=== PATIENT | male | born 1970 | race Caucasian/White ===

== ENCOUNTER 2023-03-14 15:29 | Outpatient (OUT) | payer MEDICARE, MEDICAID, SELFPAY ==
[2023-03-14 16:28] LABS: C Reactive Protein 1.8 mg/dL (<=1.0); Thyroid Stimulating Hormone 0.922 uIU/mL (0.358-3.740)
[2023-03-14 16:31] LABS: Erythrocyte Sedimentation Rate 44 mm/hr (<=20)
[2023-03-15 15:11] LABS: Deamidated Gliadin Abs, IgA 5 units (0-19); Deamidated Gliadin Abs, IgG 4 units (0-19); Endomysial Antibody IgA Negative (Negative); Immunoglobulin A, Qn, Serum 214 mg/dL (90-386); t-Transglutaminase (tTG) IgA 4 U/mL (0-3); t-Transglutaminase (tTG) IgG <2 U/mL (0-5)
== END 2023-03-14 15:30 ==
LOC: LAB 15:35
PROVIDERS: PCP Nurse Practitioner; Visit Provider Nurse Practitioner
DX: R19.7 Diarrhea, unspecified (principal); K86.89 Other specified diseases of pancreas; R63.4 Abnormal weight loss
CPT/HCPCS: 36415; 82784; 84443; 85652; 86140; 86231; 86258; 86364

== ENCOUNTER 2023-03-20 12:15 | Outpatient (OUT) | payer MEDICARE, MEDICAID, SELFPAY ==
--- NOTE | 2023-03-20 12:22 | CT_ITS ---
The [address] [address] Patient Name: KALANI UGARTE MRN: [id number] date: 1970 Sex: M Assigned Patient Location: CT Current Patient Location: CT Accession/Order Number: [id number] Exam Date: 03/20/2023 13:40 Report Date: 03/20/2023 14:21 At the request of: NON-STAFF PHYSICIAN Procedure: CT abdomen pelvis w con EXAM: CT abdomen pelvis w con HISTORY: Pancreatic insufficiency K86.89, Diarrhea R19.7, R63.4 COMPARISON: CT abdomen and pelvis 09/09/2022. TECHNIQUE: Following intravenous injection of 100 mL of Omnipaque 300, axial soft tissue windows of the abdomen and pelvis were performed with coronal and sagittal reformats. Findings: Small right pleural effusion with mild adjacent atelectasis. ABDOMEN: There are couple hepatic low-attenuation lesions, too small to characterize, near the dome. The gallbladder, spleen, pancreas, and adrenal glands are unremarkable. No renal stones or collecting system dilatation. Left renal low-attenuation lesions, too small to characterize. The visualized portions of the bilateral ureters are nondilated. The bowel is unremarkable without evidence of wall thickening or obstruction. The appendix is nondilated. The aorta is normal caliber. No enlarged abdominal lymph nodes or free abdominal fluid. Pelvis: Unremarkable bladder. The prostate is nonenlarged. No enlarged pelvic lymph nodes or free pelvic fluid. No aggressive sclerotic or lytic osseous lesions. IMPRESSION: 1. Small right pleural effusion with mild adjacent atelectasis. 2. No acute abdominal or pelvic abnormality. Electronically authenticated by: MOLLY ROSALES Date: 03/20/2023 14:21
== END 2023-03-20 12:16 ==
LOC: CT 12:16
PROVIDERS: PCP Nurse Practitioner
DX: R19.7 Diarrhea, unspecified (principal); K86.89 Other specified diseases of pancreas; R63.4 Abnormal weight loss; J90 Pleural effusion, not elsewhere classified; J98.11 Atelectasis
CPT/HCPCS: 74177; Q9967

== ENCOUNTER 2023-04-17 15:32 | Outpatient (OUT) | payer MEDICARE, MEDICAID, SELFPAY ==
[2023-04-18 21:07] LABS: Calprotectin, Fecal 9 ug/g (0-120)
== END 2023-04-17 15:33 | disposition home or self-care (01) ==
LOC: LAB 15:34
PROVIDERS: PCP Nurse Practitioner
DX: R19.7 Diarrhea, unspecified (principal); K86.89 Other specified diseases of pancreas; R63.4 Abnormal weight loss
CPT/HCPCS: 83993

== ENCOUNTER 2023-05-02 12:50 | Outpatient (OUT) | payer MEDICARE, MEDICAID, SELFPAY ==
--- NOTE | 2023-05-02 13:01 | PM.CN ---
Consult Note: HPI Data of Consult Patient: known to practice within the last 3 years Consult date: 05/02/23 Requesting Physician: ENZO LOUIS NP Primary Care Provider: Carmen Pratt Consult Narrative Narrative: Patient was here for f/u of low back pain. Pain is 4/10 today worse with lifting . He had SI joint injection 11/05 with significant relief. Pain is lumbar area and also left SI joint area, worse with lifting, position change. RFA bilt lumbar area 10/2021 without relief of pain. Denies adverse SE of medications. Medication regimen assists patient with being better able to perform ADLS. No new sensorimotor or bowel or bladder issues. We discussed doing SI joint injection and he is agreeable. Mother in room during visit also. He is wearing back brace also. He has failed conservative management with OTC meds, rx meds, RFA, etc. cc:: CC: ENZO LOUIS NP Review of Systems ROS Status of ROS 10 or more systems reviewed and unremarkable except as noted in history and below Musculoskeletal Reports: back pain Exam Constitutional Documenting provider has reviewed patient's vital signs: yes Common normals: no apparent distress, oriented x3, no limitations, alert and well nourished General appearance: cooperative, comfortable and well developed Orientation/consciousness: Yes awake, Yes oriented to person, Yes oriented to place and Yes oriented to time HENCA Common normals: normocephalic and moist oral mucous membranes Respiratory Common normals: normal respiratory effort, no retractions and no use of accessory muscles Effort & inspection: able to speak in complete sentences and symmetric chest movement Back & Pelvis Lumbar spine/lower back: normal to inspection, pain with ROM, paraspinal muscle tenderness, paraspinal muscle spasm and straight leg raise negative bilaterally Other: positive facet loading positive yeni, positive gaenslens, positive thigh thrust left muscle strength 5/5 bilat with intact sensation Assessment and Plan Assessment and Plan (1) Lumbar spondylosis: (2) Muscle spasm: (3) Sacroiliac joint pain: Plan schedule left SI joint injection under fluoroscopy jacqui vásquezill
== END 2023-05-02 12:51 | disposition home or self-care (01) ==
LOC: PM 12:50
PROVIDERS: PCP Nurse Practitioner; Visit Provider Nurse Practitioner
DX: M47.816 Spondylosis without myelopathy or radiculopathy, lumbar region (principal); M62.838 Other muscle spasm; M53.3 Sacrococcygeal disorders, not elsewhere classified
CPT/HCPCS: G0463

== ENCOUNTER 2023-05-28 10:35 | Day surgery (SDC) | payer MEDICARE, MEDICAID, SELFPAY ==
[2023-05-28 11:09] VITALS: BP 112/83; PULSE 68; RESP 16; TEMP 36.7; O2SAT 98
[2023-05-28 11:55] VITALS: RESP 20
[2023-05-28] MEDS: BUPIVACAINE HCL 0.25% PF 25 MG/10 ML VIAL 4 ML INJ (12:01)
[2023-05-28 12:02] VITALS: BP 113/68; BP 116/70; PULSE 64; PULSE 68; O2SAT 100; O2SAT 96
--- NOTE | 2023-05-28 16:15 | W.PM.PROCNOT ---
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 25 gauge spinal needle Insert over each of the target areas identified in fluoroscopy corresponding needles were advanced Under fluoroscopic guidance until the target/targets encountered , no indication of intravascular or Intraneuronal needle tip placement. Solution injected .needles removed post procedurally. patient transferred to recovery room in stable condition to be discharged home after meeting criteria Anesthesia: Local Surgeon: Esteban Sanchez Condition: stable
== END 2023-05-28 12:06 | disposition home or self-care (01) ==
LOC: SURGOUT 10:35
PROVIDERS: PCP Nurse Practitioner; Visit Provider Anesthesiology Pain Medicine
DX: G57.82 Other specified mononeuropathies of left lower limb (principal)
CPT/HCPCS: 64450; 77002

== ENCOUNTER 2023-06-13 08:39 | Outpatient (RCR) | payer MEDICARE, MEDICAID, SELFPAY | END 2023-07-06 13:17 | disposition home or self-care (01) | LOC: PT 08:39 | PROVIDERS: PCP Nurse Practitioner | DX: M25.552 Pain in left hip (principal); Z91.81 History of falling; M54.50 Low back pain, unspecified | CPT/HCPCS: 97110; 97112; 97161 ==

== ENCOUNTER 2023-06-13 12:25 | Outpatient (OUT) | payer MEDICARE, MEDICAID, SELFPAY ==
--- NOTE | 2023-06-13 12:28 | P.CN_ITS ---
Consult Note: HPI Data of Consult Patient: known to practice within the last 3 years Requesting Physician: Renetta Blood NP Primary Care Provider: Carmen Pratt Consult Narrative Reason for consult: Left Lateral cutaneous branch Iliohypogastric nerve injection f/u Narrative: Nabeel Asencio a pleasant 53 year old male left presents to office for evaluation of chronic The patient had significant relief of over 80%, with increased range of motion, decreased pain with provocative maneuvers, and increased ability to perform ADLs after diagnostic left LCIH injection. Patient rating pain 1-2/10. Would like to discuss follow up cc:: CC: Renetta Blood NP Review of Systems ROS Status of ROS 10 or more systems reviewed and unremarkable except as noted in history and below Musculoskeletal Reports: back pain and joint pain [facility] Medical History (Updated 05/16/23 @ 10:55 by Taniya Vigil RN) Meds Home Medications and Allergies Home Medications Medication Instructions Recorded Confirmed Type albuterol 90 mcg/actuation aerosol 90 mcg inhalation .q6 PRN wheezing 05/16/23 05/28/23 History inhaler budesonide-formoterol HFA 160 2 puff inhalation DAILY 05/16/23 05/28/23 History mcg-4.5 mcg/actuation aerosol inhaler (Symbicort) diclofenac sodium 75 mg 75 mg PO BID 05/16/23 05/28/23 History tablet,delayed release levetiracetam 500 mg tablet 500 mg PO DAILY 05/16/23 05/28/23 History methocarbamol 500 mg tablet 500 mg PO BID 05/16/23 05/28/23 History mirtazapine 15 mg tablet (Remeron) 15 mg PO DAILY 05/16/23 05/28/23 History primidone 50 mg tablet 50 mg PO DAILY 05/16/23 05/28/23 History zonisamide 100 mg capsule 200 mg PO BEDTIME 05/16/23 05/28/23 History Allergies Allergy/AdvReac Type Severity Reaction Status Date / Time latex Allergy Verified 05/28/23 11:06 Exam Constitutional Documenting provider has reviewed patient's vital signs: yes Common normals: no apparent distress, oriented x3, healthy appearing, alert and well nourished General appearance: cooperative HENMT Common normals: normocephalic, hearing grossly normal bilaterally and moist oral mucous membranes Head and scalp: normocephalic Eye Common normals: PERRL Pupil: PERRL Neck & C-Spine Common normals: full ROM General: normal visual inspection Chest Common normals: inspection of chest normal Respiratory Common normals: normal respiratory effort, no retractions and no use of accessory muscles Back & Pelvis Lumbar spine/lower back: lumbar ROM normal and pain with ROM Sacroiliac joints: SI joint(s) abnormal (left positive yeni, thigh thrust, gaenslen. tender to PSIS) Extremity Common normals: normal to inspection and full ROM Neuro Common normals: oriented x3, CN's II-XII intact bilaterally, moves all extremities, no focal motor deficits, no sensory deficits noted and deep tendon reflexes 2+ bilaterally Sensorium/orientation: alert Gait (neuro): antalgic Motor exam: strength 5/5 throughout and no movement abnormalities noted Psych Common normals: mental status grossly normal, thought process normal, cooperative, affect normal, speech normal and activity/motor behavior normal Speech: normal speech Thought process: normal thought process Results Additional Findings Additional findings: A drug screen was completed and reviewed within the last year, and if there has not been a drug screen completed we ordered one today to monitor higher risk, state monitored pain medication use. As part of providing excellent, safe, comprehensive care, the following was completed at our patient's visit: 1. A medication reconciliation and review to ensure accurate knowledge of current/active medications, including asking our patients to inform us about any elpm-vua-mbqdnzz medications or herbal remedies/nutritional supplements/alternative remedies. 2. A review to specifically ensure our patients have had annual screening for: elevated body mass index (BMI), tobacco use, screening for depression, and screening for unhealthy alcohol use. When screening is concerning, patients are provided with education and the specific recommendation to discuss the concerning health issue and treatment options with their primary care provider. Assessment and Plan Assessment and Plan (1) Lumbar spondylosis: (2) Muscle spasm: (3) Sacroiliac joint pain: Assessment and Plan: The patient has had over 3 months of moderate to severe left sacroiliac pain with functional impairment and inadequate response to conservative care including NSAIDS (unless there are contraindication such as concurrent blood thinners), multiple oral or topical pain medications, and home exercise program/physical therapy.? Patient has completed >6 weeks of guided home exercise program and/or formal physical therapy program without relief of their symptoms.? I have reviewed the imaging of the lumbar spine and no red flags were identified.? We discussed the risks and benefits of the procedure with the patient Plan proceed with left LCIH RFA thermal with IV sedation under fluoroscopy continue current medication regimen f/u after procedure
== END 2023-06-13 12:26 | disposition home or self-care (01) ==
LOC: PM 12:25
PROVIDERS: PCP Nurse Practitioner; Visit Provider Nurse Practitioner
DX: M47.816 Spondylosis without myelopathy or radiculopathy, lumbar region (principal); M62.838 Other muscle spasm; M53.3 Sacrococcygeal disorders, not elsewhere classified
CPT/HCPCS: G0463

== ENCOUNTER 2023-06-20 13:18 | Outpatient (OUT) | payer MEDICARE, MEDICAID, SELFPAY ==
--- NOTE | 2023-06-20 13:27 | MR_ITS ---
[address] [address] Patient Name: KALANI UGARTE MRN: [id number] date: 1970 Sex: M Assigned Patient Location: MRI Current Patient Location: Accession/Order Number: [id number] Exam Date: 06/20/2023 13:40 Report Date: 06/21/2023 08:44 At the request of: NON-STAFF PHYSICIAN Procedure: MR cervical spine wo con EXAMINATION: MR cervical spine wo con HISTORY: Degenerative Disc Disease M50.30 COMPARISON: No relevant comparison available. TECHNIQUE: A variety of imaging planes and parameters were utilized for visualization of suspected pathology without and/or with intravenous Dotarem contrast based on examination type. FINDINGS: CRANIOCERVICAL AREA: Normal foramen magnum with no Chiari malformation. PARASPINAL AREA: Normal with no visible mass. BONES: No fracture, pars defect, or osseous lesion. CORD: Normal caliber, contour, and signal intensity. CERVICAL DISC LEVELS: C2-C3: Early degenerative disc disease is present without focal protrusion or neural impingement. C3-C4: Early degenerative disc disease is present without focal protrusion or neural impingement. C4-C5: Moderate central canal and marked bilateral foramen narrowing. Mild diffuse disc bulging, uncovertebral joint spurring, and moderate disc height reduction. Mild degenerative facet arthropathy. C5-C6: Moderate marked central canal and bilateral foramen narrowing. Mild diffuse disc bulging, uncovertebral joint spurring, and moderate disc height reduction. Moderate degenerative facet arthropathy. C6-C7: Moderate-marked central canal narrowing and moderate bilateral foramen narrowing. Mild diffuse disc bulging, uncovertebral joint spurring, and mild disc at reduction. Mild degenerative facet arthropathy. C7-T1:. No significant disc/facet abnormality, spinal stenosis, or foraminal stenosis. MR/MR cervical spine wo con IMPRESSION: 1. C4-5 through C6-7 moderate or greater central canal and foramen narrowing secondary to degenerative disc disease and facet arthropathy. Electronically authenticated by: NOEMÍ MORRISON Date: 06/21/2023 08:44
== END 2023-06-20 13:19 | disposition home or self-care (01) ==
PROVIDERS: PCP Nurse Practitioner
DX: M50.30 Other cervical disc degeneration, unspecified cervical region (principal); R29.2 Abnormal reflex; M50.321 Other cervical disc degeneration at C4-C5 level; M48.02 Spinal stenosis, cervical region
CPT/HCPCS: 72141

== ENCOUNTER 2023-07-08 14:07 | Outpatient (OUT) | payer MEDICARE, MEDICAID, SELFPAY ==
[2023-07-08 15:11] LABS: Prostate Specific Antigen Scrn 0.85 ng/mL (<=4.00)
== END 2023-07-08 14:08 | disposition home or self-care (01) ==
LOC: LAB 14:09
PROVIDERS: PCP Nurse Practitioner; Visit Provider Nurse Practitioner
DX: Z12.5 Encounter for screening for malignant neoplasm of prostate (principal)
CPT/HCPCS: 36415; G0103

== ENCOUNTER 2023-07-22 10:13 | Outpatient (OUT) | payer MEDICARE, MEDICAID, SELFPAY ==
[2023-07-22 11:03] LABS: Basophils Percent Auto 0.3 % (0.2-2.0); Eosinophils Absolute Auto 0.9 10^3/uL (0.0-0.7); Eosinophils Percent Auto 11.4 % (0.9-7.0); Hematocrit 45.9 % (42.0-54.0); Hemoglobin 14.8 g/dL (14.0-18.0); Immature Granulocytes Abs Auto 0.01 10^3/uL (0.00-0.03); Immature Granulocytes Pct Auto 0.1 % (0.0-0.5); Lymphocytes Absolute Auto 1.7 10^3/uL (1.2-3.8); Lymphocytes Percent Auto 22.1 % (20.5-60.0); Mean Corpuscular HGB Conc 32.2 g/dL (29.9-35.2); Mean Corpuscular Hemoglobin 30.9 pg (25.9-34.0); Mean Corpuscular Volume 95.8 fL (80.0-94.0); Mean Platelet Volume 10.2 fL (9.5-13.5); Monocytes Absolute Auto 0.4 10^3/uL (0.3-0.8); Monocytes Percent Auto 5.1 % (1.7-12.0); Neutrophils Absolute Auto 4.7 10^3/uL (1.4-6.5); Platelet Count 234 10^3/uL (150-450); Red Blood Count 4.79 10^6/uL (4.70-6.10); Red Cell Distribution Width 13.2 % (11.0-15.0); White Blood Count 7.6 10^3/uL (4.0-11.0)
[2023-07-22 11:26] LABS: Alanine Aminotransferase 37 U/L (16-63); Albumin Level 3.6 g/dL (3.4-5.0); Alkaline Phosphatase 134 U/L (46-116); Anion Gap 7.1; Aspartate Amino Transferase 17 U/L (15-37); BUN Creatinine Ratio 11.2; Bilirubin Total 0.2 mg/dL (0.2-1.0); Calcium 9.1 mg/dL (8.5-10.1); Carbon Dioxide 31.5 mmol/L (21.0-32.0); Chloride 109 mmol/L (98-107); Estimated GFR (African America >60 (>=60); Estimated GFR (Non-African Ame >60 (>=60); Globulin 3.6 g/dL; Glucose 54 mg/dL (74-106); Potassium 4.6 mmol/L (3.5-5.1); Sodium 143 mmol/L (136-145); Total Protein 7.2 g/dL (6.4-8.2)
== END 2023-07-22 10:14 | disposition home or self-care (01) ==
LOC: LAB 10:15
PROVIDERS: PCP Nurse Practitioner
DX: G40.909 Epilepsy, unspecified, not intractable, without status epilepticus (principal)
CPT/HCPCS: 36415; 80053; 80177; 80203; 85025

== ENCOUNTER 2023-07-30 10:36 | Day surgery (SDC) | payer MEDICARE, MEDICAID, SELFPAY ==
[2023-07-30 11:31] VITALS: BP 112/72; PULSE 54; RESP 16; TEMP 36.4; O2SAT 98
[2023-07-30] MEDS: 0.9 % SODIUM CHLORIDE 500 ML IV (11:48)
[2023-07-30] MEDS: BUPIVACAINE HCL 0.25% PF 25 MG/10 ML VIAL 4 ML INJ (12:31)
[2023-07-30] MEDS: METHYLPREDNISOLONE ACETATE 40 MG/ML VIAL INJ (12:32)
[2023-07-30] MEDS: LIDOCAINE HCL 2% 400 MG/20 ML MDV 10 ML INJ (12:32)
[2023-07-30 12:47] VITALS: BP 107/70; PULSE 52; RESP 16; TEMP 36.4; O2SAT 100
--- NOTE | 2023-07-30 12:48 | W.PM.PROCNOT ---
Date of procedure: 07/30/23 Pre-op diagnosis: Left lateral cutaneous iliohypogastric neuritis Post-op diagnosis: same as pre-op Procedure: Left Lateral cutaneous iliohypogastric nerve Radiofrequency ablation PreOp diagnosis: pain secondary to include lateral cutaneous iliohypogastric neuritis Postop diagnosis same Under fluoroscopic guidance Rhizotomy was created using radio frequency ablation at 80?C for 90 seconds 1 to 2 lesions created at each site. Post lesioning injection of 2 mL each of 0.25% Marcaine and 2% lidocaine with Depo-Medrol 40mg. 0.5 to 1 mL injected at each site IV in place yes If Intravenous fluids: NS at KVO Anesthesia local 2% lidocaine for Anesthesia Other: MAC Timeout process compliant After informed consent obtained. Patient brought to the procedure room placed in the prone position skin overlying the area was prepped and draped in a sterile fashion using betadine. 25 gauge needle was used to create a skin wheal over each of the targeted areas utilizing 2% lidocaine. A rhizotomy needle with a 10 mm active tip was inserted over each of the anesthetized areas and directed towards four different areas in the distribution of the lateral cutaneous branches of the iliohypogastric nerve, accomplished under fluoroscopic guidance. After encountering the same we had positive sensory stimulation, negative motor stimulation was noted. lesions were then created. Post lesioning, steroid solution was injected needles removed. Patient was transferred to recovery room in stable condition to be discharged home after meeting criteria. Anesthesia: MAC Surgeon: Esteban Sanchez Condition: stable
[2023-07-30 12:49] VITALS: BP 114/73; PULSE 56; RESP 16; TEMP 36.4; O2SAT 99
== END 2023-07-30 13:05 | disposition home or self-care (01) ==
LOC: SURGOUT 10:37
PROVIDERS: PCP Nurse Practitioner; Visit Provider Anesthesiology Pain Medicine
PROC: (CPT 1992; principal; 2023-07-30 12:00)
DX: G57.82 Other specified mononeuropathies of left lower limb (principal)
CPT/HCPCS: 64640; 77002; J1030; J2704

== ENCOUNTER 2023-08-28 12:30 | Outpatient (OUT) | payer MEDICARE, MEDICAID, SELFPAY ==
--- NOTE | 2023-08-28 12:55 | PM.CN ---
Consult Note: HPI Data of Consult Patient: known to practice within the last 3 years Requesting Physician: Renetta Blood NP Primary Care Provider: Carmen Pratt Consult Narrative Reason for consult: f/u Narrative: Nabeel Asencio a pleasant 53 year old male presents for evaluation and management of left LCIH neuritis, recently underwent left LCIH RFA with 100% ongoing pain relief. Has not needed tylenol or muscle relaxants. cc:: CC: Renetta Blood NP Review of Systems ROS Status of ROS 10 or more systems reviewed and unremarkable except as noted in history and below [facility] Medical History (Updated 05/16/23 @ 10:55 by Taniya Vigil RN) Asthma ?J45.909 - Unspecified asthma, uncomplicated (ICD-10) Seizures ?R56.9 - Unspecified convulsions (ICD-10) Sleep apnea ?G47.30 - Sleep apnea, unspecified (ICD-10) Meds Home Medications and Allergies Home Medications Medication Instructions Recorded Confirmed Type albuterol 90 mcg/actuation aerosol 90 mcg inhalation .q6 PRN wheezing 05/16/23 07/30/23 History inhaler diclofenac sodium 75 mg 75 mg PO BID 05/16/23 07/30/23 History tablet,delayed release levetiracetam 500 mg tablet 500 mg PO DAILY 05/16/23 07/30/23 History methocarbamol 500 mg tablet 500 mg PO BID 05/16/23 07/30/23 History mirtazapine 15 mg tablet (Remeron) 15 mg PO DAILY 05/16/23 07/30/23 History primidone 50 mg tablet 50 mg PO DAILY 05/16/23 07/30/23 History zonisamide 100 mg capsule 200 mg PO BEDTIME 05/16/23 07/30/23 History albuterol sulfate 90 mcg/actuation 2 inh inhalation Q6H PRN shortness 06/13/23 07/30/23 History aerosol inhaler of breath or wheezing biotin 10,000 mcg capsule 10,000 mcg PO DAILY 06/13/23 07/30/23 History calcium carbonate 600 mg-vitamin 1 tab PO DAILY 06/13/23 07/30/23 History D3 20 mcg (800 unit) tablet xliies-pdmehrij-kpbqqzw 1 cap PO TID 06/13/23 07/30/23 History 24,000-76,000-120,000 unit capsule,delayed rel (Creon) magnesium oxide 400 mg PO DAILY 06/13/23 07/30/23 History melatonin 3 mg capsule 3 mg PO DAILY 06/13/23 07/30/23 History montelukast 10 mg tablet 10 mg PO DAILY 06/13/23 07/30/23 History pantoprazole 40 mg tablet,delayed 40 mg PO DAILY 06/13/23 07/30/23 History release sertraline 50 mg tablet 50 mg PO DAILY 06/13/23 07/30/23 History Allergies Allergy/AdvReac Type Severity Reaction Status Date / Time bee venom protein (honey bee) Allergy Mild Verified 07/30/23 11:33 latex Allergy Verified 07/30/23 11:33 Exam Constitutional Documenting provider has reviewed patient's vital signs: yes Common normals: no apparent distress, oriented x3, healthy appearing, alert and well nourished General appearance: cooperative HENMT Common normals: normocephalic, hearing grossly normal bilaterally and moist oral mucous membranes Head and scalp: normocephalic Eye Common normals: PERRL Pupil: PERRL Neck & C-Spine Common normals: full ROM General: normal visual inspection Chest Common normals: inspection of chest normal Respiratory Common normals: normal respiratory effort, no retractions and no use of accessory muscles Back & Pelvis Lumbar spine/lower back: lumbar ROM normal Sacroiliac joints: SI joints normal Extremity Common normals: normal to inspection and full ROM Neuro Common normals: oriented x3, CN's II-XII intact bilaterally, moves all extremities, no focal motor deficits, no sensory deficits noted and deep tendon reflexes 2+ bilaterally Sensorium/orientation: alert Gait (neuro): antalgic Motor exam: strength 5/5 throughout and no movement abnormalities noted Psych Common normals: mental status grossly normal, thought process normal, cooperative, affect normal, speech normal and activity/motor behavior normal Speech: normal speech Thought process: normal thought process Assessment and Plan Assessment and Plan (1) Sacroiliac joint pain: Plan f/u 6 months to assess RFA
== END 2023-08-28 12:31 | disposition home or self-care (01) ==
LOC: PM 12:30
PROVIDERS: PCP Nurse Practitioner; Visit Provider Nurse Practitioner
DX: M53.3 Sacrococcygeal disorders, not elsewhere classified (principal)
CPT/HCPCS: G0463

== ENCOUNTER 2023-09-11 16:38 | Emergency (ER) | payer MEDICARE, MEDICAID, SELFPAY ==
[2023-09-11 16:42] VITALS: BP 147/89; PULSE 80; RESP 18; TEMP 36.8; O2SAT 99; BMI 20.1
--- NOTE | 2023-09-11 16:53 | XR_ITS ---
The [address] [address] Patient Name: KALANI UGARTE MRN: [id number] date: 1970 Sex: M Assigned Patient Location: ER Current Patient Location: ER Accession/Order Number: [id number] Exam Date: 09/11/2023 17:20 Report Date: 09/11/2023 17:51 At the request of: HOWARD TRUONG Procedure: XR hip RT min 2V EXAM: XR femur RT 2V, XR hip RT min 2V HISTORY: pain, fall COMPARISON: Abdomen and pelvic CT 03/20/2023 TECHNIQUE: 4 views of the femur and AP pelvis with 2 views of the right hip FINDINGS: No osseous lesion, fracture, dislocation or subluxation. Joint spaces are normal. No visualized effusion. No visualized soft tissue edema. XR/XR hip RT min 2V IMPRESSION: Normal x-rays Electronically authenticated by: JARETT ECHEVERRIA Date: 09/11/2023 17:51
--- NOTE | 2023-09-11 16:53 | XR_ITS ---
The [address] [address] Patient Name: KALANI UGARTE MRN: [id number] date: 1970 Sex: M Assigned Patient Location: ER Current Patient Location: ER Accession/Order Number: [id number] Exam Date: 09/11/2023 17:20 Report Date: 09/11/2023 17:51 At the request of: HOWARD TRUONG Procedure: XR femur RT 2V EXAM: XR femur RT 2V, XR hip RT min 2V HISTORY: pain, fall COMPARISON: Abdomen and pelvic CT 03/20/2023 TECHNIQUE: 4 views of the femur and AP pelvis with 2 views of the right hip FINDINGS: No osseous lesion, fracture, dislocation or subluxation. Joint spaces are normal. No visualized effusion. No visualized soft tissue edema. XR/XR femur RT 2V IMPRESSION: Normal x-rays Electronically authenticated by: JARETT ECHEVERRIA Date: 09/11/2023 17:51
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
--- NOTE | 2023-09-11 16:55 | ED_ITS ---
HPI - Extremity Injury (Lower) General Chief Complaint: Extremity Injury, Lower Stated Complaint: LE INJURY Time Seen by Provider: 09/11/23 16:43 Source: patient Mode of arrival: walk-in History of Present Illness HPI Narrative: 53 year old male presents to the ED for pain to his right hip and upper leg s/p fall yesterday. Reports slipping on ice. Denies hitting his head and LOC. Denies pain to his head, neck, back, chest, abdomen. The upper leg pain extends to the mid upper leg. Rates his pain /10. He has not had anything for discomfort today. Related Data Home Medications Medication Instructions Recorded Confirmed albuterol 90 mcg/actuation aerosol 90 mcg inhalation .q6 PRN wheezing 05/16/23 07/30/23 inhaler diclofenac sodium 75 mg 75 mg PO BID 05/16/23 07/30/23 tablet,delayed release levetiracetam 500 mg tablet 500 mg PO DAILY 05/16/23 07/30/23 methocarbamol 500 mg tablet 500 mg PO BID 05/16/23 07/30/23 mirtazapine 15 mg tablet (Remeron) 15 mg PO DAILY 05/16/23 07/30/23 primidone 50 mg tablet 50 mg PO DAILY 05/16/23 07/30/23 zonisamide 100 mg capsule 200 mg PO BEDTIME 05/16/23 07/30/23 albuterol sulfate 90 mcg/actuation 2 inh inhalation Q6H PRN shortness 06/13/23 07/30/23 aerosol inhaler of breath or wheezing biotin 10,000 mcg capsule 10,000 mcg PO DAILY 06/13/23 07/30/23 calcium carbonate 600 mg-vitamin 1 tab PO DAILY 06/13/23 07/30/23 D3 20 mcg (800 unit) tablet [id number] 1 cap PO TID 06/13/23 07/30/23 24,000-76,000-120,000 unit capsule,delayed rel (Creon) magnesium oxide 400 mg PO DAILY 06/13/23 07/30/23 melatonin 3 mg capsule 3 mg PO DAILY 06/13/23 07/30/23 montelukast 10 mg tablet 10 mg PO DAILY 06/13/23 07/30/23 pantoprazole 40 mg tablet,delayed 40 mg PO DAILY 06/13/23 07/30/23 release sertraline 50 mg tablet 50 mg PO DAILY 06/13/23 07/30/23 Previous Rx's Medication Instructions Recorded tizanidine 2 mg capsule (Zanaflex) 2 mg PO Q8H PRN pain, muscle 09/11/23 spasms #14 caps Allergies Allergy/AdvReac Type Severity Reaction Status Date / Time bee venom protein (honey bee) Allergy Mild Verified 07/30/23 11:33 latex Allergy Verified 07/30/23 11:33 Review of Systems ROS Constitutional Denies: fever or chills Ears, nose, mouth, and throat Denies: neck pain Cardiovascular Denies: chest pain Respiratory Denies: shortness of breath Gastrointestinal Denies: abdominal pain Musculoskeletal Reports: extremity pain and joint pain; Denies: back pain or neck pain Integumentary/Breast Denies: rash Neurological Denies: headache or dizziness [facility] Medical History (Updated 09/11/23 @ 18:17 by Nafisa Taylor) Asthma ?J45.909 - Unspecified asthma, uncomplicated (ICD-10) Seizures ?R56.9 - Unspecified convulsions (ICD-10) Sleep apnea ?G47.30 - Sleep apnea, unspecified (ICD-10) Exam Constitutional Vital Signs, click to edit/add: Last Vital Signs Temp 98.3 F 09/11/23 16:42 Pulse 80 09/11/23 16:42 Resp 18 09/11/23 16:42 BP 147/89 H 09/11/23 16:42 Pulse Ox 99 09/11/23 16:42 Common normals: no apparent distress and oriented x3 General appearance: cooperative Eye Common normals: conjunctivae normal and no scleral icterus Neck & C-Spine Common normals: supple Chest Chest: symmetrical chest wall rise Respiratory Common normals: normal respiratory effort Effort & inspection: symmetric chest movement Cardio Common normals: regular rate Peripheral pulses: posterior tibial pulses present and dorsalis pedis pulses present Back & Pelvis Thoracic spine/upper back: normal to inspection; no thoracic spinal tenderness, no paraspinal muscle tenderness and no paraspinal muscle spasm Lumbar spine/lower back: normal to inspection; no lumbar spinal tenderness, no paraspinal muscle tenderness and no paraspinal muscle spasm Extremity Right lower extremity: hip joint Right hip: inspection (No bruising, erythema, or deformity.) and palpation (Tendernss to lateral and anterior hip), upper leg Right upper leg: inspection (No bruising, swelling, or deformity noted.) and palpation (Tenderness to lateral upper leg.), knee joint (Denies tenderness. No swelling or deformity. Full ROM.) and foot and digits Right foot and digits: neurovascular exam (NVI) Neuro Common normals: oriented x3 Sensorium/orientation: awake and alert Speech: speech normal Course Vital Signs Vital signs: Vital Signs Temperature 98.3 F 09/11/23 16:42 Pulse Rate 80 09/11/23 16:42 Respiratory Rate 18 09/11/23 16:42 Blood Pressure 147/89 H 09/11/23 16:42 Pulse Oximetry 99 09/11/23 16:42 Temperature 98.3 F 09/11/23 16:42 Pulse Rate 80 09/11/23 16:42 Respiratory Rate 18 09/11/23 16:42 Blood Pressure 147/89 H 09/11/23 16:42 Pulse Oximetry 99 09/11/23 16:42 MDM - Extremity Injury (Lower) MDM Narrative Medical decision making narrative: Imaging was negative for acute findings. Findings were discussed with the patient. A prescription was provided for Zanaflex. He has antiinflammatory medication at home. Follow up with pcp for a recheck, further evaluation and treatment. Differential Diagnosis Differential diagnosis: Likely fracture of femur, fracture of hip and other (Muscle strain, contusion) Medical Records Attestation: I reviewed the patient's medical records. Imaging Data Femur x-ray: Attestation: I have reviewed the pertinent imaging results. Radiologist's impression: Procedure: XR femur RT 2V EXAM: XR femur RT 2V, XR hip RT min 2V HISTORY: pain, fall COMPARISON: Abdomen and pelvic CT 03/20/2023 TECHNIQUE: 4 views of the femur and AP pelvis with 2 views of the right hip FINDINGS: No osseous lesion, fracture, dislocation or subluxation. Joint spaces are normal. No visualized effusion. No visualized soft tissue edema. XR/XR femur RT 2V IMPRESSION: Normal x-rays Electronically authenticated by: JARETT ECHEVERRIA Date: 09/11/2023 17:51 Hip x-ray: Attestation: I have reviewed the pertinent imaging results. Radiologist's impression: Procedure: XR hip RT min 2V EXAM: XR femur RT 2V, XR hip RT min 2V HISTORY: pain, fall COMPARISON: Abdomen and pelvic CT 03/20/2023 TECHNIQUE: 4 views of the femur and AP pelvis with 2 views of the right hip FINDINGS: No osseous lesion, fracture, dislocation or subluxation. Joint spaces are normal. No visualized effusion. No visualized soft tissue edema. XR/XR hip RT min 2V IMPRESSION: Normal x-rays Electronically authenticated by: JARETT ECHEVERRIA Date: 09/11/2023 17:51 Discharge Plan Discharge Chief Complaint: Extremity Injury, Lower Clinical Impression: Muscle strain, Contusion of right hip Patient Disposition: Home, Self-Care Time of Disposition Decision: 18:12 Condition: Good Mode of Transportation: Private Vehicle Prescriptions / Home Meds: New tizanidine [Zanaflex] 2 mg capsule 2 mg PO Q8H PRN (Reason: pain, muscle spasms) Qty: 14 0RF No Action albuterol 90 mcg/actuation aerosol 90 mcg inhalation .q6 PRN (Reason: wheezing) methocarbamol 500 mg tablet 500 mg PO BID diclofenac sodium 75 mg tablet,delayed release (DR/EC) 75 mg PO BID levetiracetam 500 mg tablet 500 mg PO DAILY primidone 50 mg tablet 50 mg PO DAILY mirtazapine [Remeron] 15 mg tablet 15 mg PO DAILY zonisamide 100 mg capsule 200 mg PO BEDTIME albuterol sulfate 90 mcg/actuation HFA aerosol inhaler 2 inh inhalation Q6H PRN (Reason: shortness of breath or wheezing) magnesium oxide 400 mg magnesium capsule 400 mg PO DAILY sertraline 50 mg tablet 50 mg PO DAILY melatonin 3 mg capsule 3 mg PO DAILY montelukast 10 mg tablet 10 mg PO DAILY biotin 10,000 mcg capsule 10,000 mcg PO DAILY pantoprazole 40 mg tablet,delayed release (DR/EC) 40 mg PO DAILY Creon 24,000-76,000 -120,000 unit capsule,delayed release(DR/EC) 1 cap PO TID Rx Instructions: administer with meals and/or snacks calcium carbonate-vitamin D3 600 mg-20 mcg (800 unit) tablet 1 tab PO DAILY Instructions: Groin Strain (ED), Hip Contusion (ED) Additional Instructions: Do not take the methocarbamol if you are going to be taking the Zanaflex. Stand Alone Forms: Portal Instructions Referrals: Carmen Pratt NP [Primary Care Provider] - As soon as possible Discharge Date/Time: 09/11/23 18:22
[2023-09-11] MEDS: KETOROLAC TROMETHAMINE 30 MG/ML VIAL IM (17:15)
== END 2023-09-11 18:22 | disposition home or self-care (01) ==
PROVIDERS: Emergency Provider Emergency Medicine; PCP Nurse Practitioner
DX: S76.011A Strain of muscle, fascia and tendon of right hip, initial encounter (principal); S70.01XA Contusion of right hip, initial encounter; W00.0XXA Fall on same level due to ice and snow, initial encounter; Z79.899 Other long term (current) drug therapy; J45.909 Unspecified asthma, uncomplicated; G47.30 Sleep apnea, unspecified; R56.9 Unspecified convulsions
CPT/HCPCS: 73502; 73552; 96372; 99284

== ENCOUNTER 2023-11-04 12:05 | Emergency (ER) | payer MEDICARE, MEDICAID, SELFPAY ==
[2023-11-04 12:14] VITALS: BP 128/78; PULSE 62; RESP 18; TEMP 37; O2SAT 99; BMI 21.1
--- OUTSIDE RECORDS SUMMARY | 2023-11-04 12:15 | XMS_ITS | CCD ---
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 Name Role Phone CARMEN PRATT J Referring UnavailTarsha Mccrary Attending Unavailable AICHHOLZ, INSPECTOR MATERIAL DISPOSITION CARMEN Consulting Unavailable AICHHOLZ, INSPECTOR MATERIAL DISPOSITION CARMEN Primary Care Unavailable AICHHOLZ, INSPECTOR MATERIAL DISPOSITION CARMEN Admitting Unavailable AICHHOLZ, INSPECTOR MATERIAL DISPOSITION CARMEN Attending Unavailable GALO ., DR HANY Holder Admitting Unavailable GALO ., DR HANY Holder Attending Unavailable AICHHOLZ, INSPECTOR MATERIAL DISPOSITION CARMEN Primary Care Unavailable JEFFERSON ., STACY Consulting Unavailable JEFFERSON ., STACY Consulting Unavailable GALO ., DR HANY Holder Admitting Unavailable GALO ., DR HANY Holder Attending Unavailable AICHHOLZ, INSPECTOR MATERIAL DISPOSITION CARMEN Primary Care Unavailable JEFFERSON ., STACY Admitting Unavailable JEFFERSON ., STACY Attending Unavailable AICHHOLZ, INSPECTOR MATERIAL DISPOSITION CARMEN Primary Care Unavailable WEST, DR JARETT Long Consulting Unavailable JEFFERSON ., STACY Consulting Unavailable AICHHOLZ, INSPECTOR MATERIAL DISPOSITION CARMEN Primary Care Unavailable AICHHOLZ, INSPECTOR MATERIAL DISPOSITION CARMEN Admitting Unavailable AICHHOLZ, INSPECTOR MATERIAL DISPOSITION CARMEN Attending Unavailable AICHHOLZ, INSPECTOR MATERIAL DISPOSITION CARMEN Consulting Unavailable ALBERTO REDMAN Consulting Unavailable JEFFERSON ., STACY Consulting Unavailable GALO ., DR HANY Holder Admitting Unavailable GALO ., DR HANY Holder Attending Unavailable AICHHOLZ, INSPECTOR MATERIAL DISPOSITION CARMEN Primary Care Unavailable JEFFERSON ., STACY Consulting Unavailable GALO .DR HANY Admitting Unavailable GALO ., DR HANY Holder Attending Unavailable AICHHOLZ, INSPECTOR MATERIAL DISPOSITION CARMEN Primary Care Unavailable AICHHOLZ, INSPECTOR MATERIAL DISPOSITION CARMEN Consulting Unavailable AICHHOLZ, INSPECTOR MATERIAL DISPOSITION CARMEN Primary Care Unavailable AICHHOLZ, INSPECTOR MATERIAL DISPOSITION CARMEN Admitting Unavailable AICHHOLZ, INSPECTOR MATERIAL DISPOSITION CARMEN Attending Unavailable AICHHOLZ, INSPECTOR MATERIAL DISPOSITION CARMEN Admitting Unavailable AICHHOLZ, INSPECTOR MATERIAL DISPOSITION CARMEN Primary Care Unavailable AICHHOLZ, INSPECTOR MATERIAL DISPOSITION CARMEN Attending Unavailable AICHHOLZ, INSPECTOR MATERIAL DISPOSITION CARMEN Consulting Unavailable AICHHOLZ, INSPECTOR MATERIAL DISPOSITION CARMEN Consulting Unavailable AICHHOLZ, INSPECTOR MATERIAL DISPOSITION CARMEN Primary Care Unavailable AICHHOLZ, INSPECTOR MATERIAL DISPOSITION CARMEN Attending Unavailable AICHHOLZ, INSPECTOR MATERIAL DISPOSITION CARMEN Admitting Unavailable LOWE, DAVID Admitting Unavailable LOWE, DAVID Attending Unavailable AICHHOLZ, INSPECTOR MATERIAL DISPOSITION CARMEN Primary Care Unavailable DR NOEMÍ MORRISON Consulting Unavailable LOWE, DAVID Consulting Unavailable AICHHOLZ, INSPECTOR MATERIAL DISPOSITION CARMEN Primary Care Unavailable AICHHOLZ, INSPECTOR MATERIAL DISPOSITION CARMEN Attending Unavailable AICHHOLZ, INSPECTOR MATERIAL DISPOSITION CARMEN Consulting Unavailable AICHHOLZ, INSPECTOR MATERIAL DISPOSITION CARMEN Admitting Unavailable AICHHOLZ, INSPECTOR MATERIAL DISPOSITION CARMEN Consulting Unavailable AICHHOLZ, INSPECTOR MATERIAL DISPOSITION CARMEN Primary Care Unavailable AICHHOLZ, INSPECTOR MATERIAL DISPOSITION CARMEN Attending Unavailable AICHHOLZ, INSPECTOR MATERIAL DISPOSITION CARMEN Admitting Unavailable JARETT JARVIS Consulting Unavailable JESSE, APOORVA Admitting Unavailable JESSE, APOORVA Attending Unavailable AICHHOLZ, INSPECTOR MATERIAL DISPOSITION CARMEN Primary Care Unavailable JESSE, APOORVA Consulting Unavailable LAKSHMIPATHY ., NARENDRANATH Admitting Letty vailable LAKSHMIPATHY ., NARENDRANATH Attending Letty vailable AICHHOLZ, INSPECTOR MATERIAL DISPOSITION CARMEN Primary Care Unavailable COURTNEY STERLING Consulting Unavailable DR JARETT GARCÍA V Consulting Unavailable AICHHOLZ, INSPECTOR MATERIAL DISPOSITION CARMEN Primary Care Unavailable AICHHOLZ, INSPECTOR MATERIAL DISPOSITION CARMEN Admitting Unavailable AICHHOLZ, INSPECTOR MATERIAL DISPOSITION CARMEN Attending Unavailable AICHHOLZ, INSPECTOR MATERIAL DISPOSITION CARMEN Consulting Unavailable AICHHOLZ, INSPECTOR MATERIAL DISPOSITION CARMEN Consulting Unavailable AICHHOLZ, INSPECTOR MATERIAL DISPOSITION CARMEN Admitting Unavailable AICHHOLZ, INSPECTOR MATERIAL DISPOSITION CARMEN Attending Unavailable AICHHOLZ, INSPECTOR MATERIAL DISPOSITION CARMEN Primary Care Unavailable ILYA, NERI Admitting Unavailable ILYA, NERI Attending Unavailable AICHHOLZ, INSPECTOR MATERIAL DISPOSITION CARMEN Primary Care Unavailable NERI CARABALLO Consulting Unavailable DANIELLE KWONG Consulting Unavailable AICHHOLZ, INSPECTOR MATERIAL DISPOSITION CARMEN Consulting Unavailable AICHHOLZ, INSPECTOR MATERIAL DISPOSITION CARMEN Primary Care Unavailable AICHHOLZ, INSPECTOR MATERIAL DISPOSITION CARMEN Admitting Unavailable AICHHOLZ, INSPECTOR MATERIAL DISPOSITION CARMEN Attending Unavailable DR NOEMÍ MORRISON Consulting Unavailable LI .STACY Consulting Unavailable GALO ., DR HANY Holder Admitting Unavailable GALO ., DR HANY Holder Attending Unavailable AICHHOLZ, INSPECTOR MATERIAL DISPOSITION CARMEN Primary Care Unavailable GALO ., DR HANY Holder Consulting Unavailable GALO ., DR HANY Holder Admitting Unavailable GALO ., DR HANY Holder Attending Unavailable AICHHOLZ, INSPECTOR MATERIAL DISPOSITION CARMEN Primary Care Unavailable KARINA ., ELIAS Admitting Unavailable KARINA ., ELIAS Attending Unavailable AICHHOLZ, INSPECTOR MATERIAL DISPOSITION CARMEN Primary Care Unavailable KARINA ., ELIAS Consulting Unavailable CATHY DE PAZ Consulting Unavaila ble AICHHOLZ, INSPECTOR MATERIAL DISPOSITION CARMEN Primary Care Unavailable WEST, DR JARETT Long Consulting Unavailable AICHHOLZ, INSPECTOR MATERIAL DISPOSITION CARMEN Admitting Unavailable AICHHOLZ, INSPECTOR MATERIAL DISPOSITION CARMEN Attending Unavailable AICHHOLZ, INSPECTOR MATERIAL DISPOSITION CARMEN Consulting Unavailable HALSAPNA ., COURTNEY Consulting Unavailable LAKSHMIPATHY ., NARENDRANATH Admitting Letty vailable LAKSHMIPATHY ., NARENDRANATH Attending Letty vailable AICHHOLZ, INSPECTOR MATERIAL DISPOSITION CARMEN Primary Care Unavailable Asaad, Imad Unavailable NON STAFF Primary Care Provider UnavailMD Jhon Campbell Attending Provider NON STAFF Primary Care Provider UnavailMD Jemal Conteh Attending Provider [phone] Jemal Teague Unavailable Asaad, Imad Admitting Unavailable Asaad, Imad Attending Unavailable NON STAFF Primary Care Unavailable NON STAFF Primary Care Unavailable Jemal Teague Admitting Unavailable Jemal Teague Attending Unavailable AICHHOLZ, CARMEN Attending Unavailable Allergies Allergy Classification Reported Allergen(s) Allergy Type Date of Onset Reaction(s) Facility (4 sources) Latex Drug allergy (disorder) 6 Rash [facility] Repository (3 sources) venom-honey bee; Translations: [venom-honey bee] Allergy to substance 3 Anaphylaxis [facility] (1 source) Latex Drug allergy Unknown Affymax Other (1 source) Bee Sting Drug allergy Unknown [facility] [employer] Other (1 source) Latex Drug allergy (disorder) 3 [facility] Repository Medications Current Medications Medication Drug Class(es) Dates Sig (Normalized) Sig (Original) Albuterol (5 sources) beta2-Adrenergic Agonist Start: 03-11-2019 Albuterol Sulfate Active 2 PUFF INHALATION As Directed March 10, 2019 11:00pm Start: 03-11-2019 Albuterol Sulf ate Active 2 PUFF INHALATION As Directed March 11, 2019 12:00am Albuterol Active amylase 187348 unt / lipase 90870 unt / protease 15476 unt delayed release oral capsule (5 sources) Start: 04-18-2023 take 00336-48150 capsules by mouth three times daily Vjrxah-Tnfgqgbd-Elqpdfe (Creon) 24,000-76,000 -120,000 unit capsule,delayed release(DR/EC) Active 1 CAP PO Three times daily April 17, 2023 11:00pm biotin 10 mg oral capsule (2 sources) Start: 04-18-2023 take 33669 ug by mouth once daily at bedtime Biotin Active 48310 MCG PO Daily at bedtime April 17, 2023 11:00pm cholecalciferol 0.05 mg oral tablet (2 sources) Vitamin D take 1 tablet by mouth every twenty-four hours Vitamin D 50 MCG (1999 UT) 1 tablet Orally Once a day Active diclofenac sodium 75 mg delayed release oral tablet (5 sources) Nonsteroidal Anti-inflammato ry Drug Start: 04-18-2023 take 75 mg by mouth twice daily Diclofenac Sodium Active 75 MG PO Twice daily April 17, 2023 11:00pm take 1 capsule by mo uth every eight hours Diclofenac 35 MG 1 capsule as needed Ora lly Three times a day Active dicyclomine hydrochloride 20 mg oral tablet (5 sources) Anticholinergic Start: 04-18-2023 take 20 mg by mouth every six hours Dicyclomine Active 20 MG PO Q6H April 17, 2023 11:00pm take 1 tablet by yuridia th every eight hours Dicyclomine HCl 20 MG 1 tablet Orally Th ree times a day Active EPINEPHrine (3 sources) alpha-Adrenergic Agonist, beta-Adrenergic Agonist, Catecholamine EpiPen Active fexofenadine hydrochloride 180 mg oral tablet (5 sources) Histamine-1 Receptor Antagonist Start: 04-18-20 take 180 mg by mouth once daily Fexofenadine Active 180 MG PO Daily April 17, 2023 11:00pm Fexofenadine HCl Active gabapentin 600 mg oral tablet (3 sources) Anti-epileptic Agent Gabapentin 600 MG 1 tablet Orally 1 at morning and 2 at bedtime for 30 days Active levETIRAcetam 500 mg oral tablet (4 sources) Start: 04-18-20 take 500 mg by mouth once daily in the morning Levetiracetam Active 500 MG PO Every morning April 17, 2023 11:00pm Start: 04-18-2023 take 1000 mg by mout h once daily at bedtime Levetiracetam Active 1000 MG PO Daily at bedtime April 17, 2023 11:00pm Magnesium (2 sources) Start: 04-18-2023 take 400 mg by mouth once daily Magnesium Active 400 MG PO Daily April 17, 2023 11:00pm Start: 04-18-2023 take 400 mg by mouth once arianna y Magnesium Active 400 MG PO Daily April 18, 2023 12:00am melatonin 3 mg oral tablet (5 sources) Start: 04-18-2023 take 3 mg by mouth once daily at bedtime Melatonin Active 3 MG PO Daily at bedtime April 17, 2023 11:00pm Melatonin Active methocarbamol 500 mg oral tablet (2 sources) Muscle Relaxant Start: 04-18-2023 take 500 mg by mouth twice daily Methocarbamol Active 500 MG PO Twice daily April 17, 2023 11:00pm mirtazapine 30 mg oral tablet (2 sources) Start: 04-18-2023 take 30 mg by mouth once daily at bedtime Mirtazapine Active 30 MG PO Daily at bedtime April 17, 2023 11:00pm montelukast 10 mg oral tablet (8 sources) Leukotriene Receptor Antagonist Start: 03-11-2019 take 10 mg by mouth once daily at bedtime Montelukast Active 10 MG PO Daily at bedtime March 10, 2019 11:00pm Montelukast Sodi um Active pantoprazole 40 mg delayed release oral tablet (5 sources) Proton Pump Inhibitor Start: 04-18-2023 take 40 mg by mouth once daily Pantoprazole Active 40 MG PO Daily April 17, 2023 11:00pm polyethylene glycol 3350 884919 mg / potassium chloride 2970 mg / sodium bicarbonate 6740 mg / sodium chloride 5860 mg / sodium sulfate 10727 mg powder for oral solution (3 sources) Osmotic Laxative take 236 g by mouth once daily Golytely 236 GM 236 GM THE DAY BEFORE THE COLONOSCOPY Orally THE DAY BEFORE THE COLONOSCOPY for 1 days Active primidone 50 mg oral tablet (7 sources) Anti-epileptic Agent Start: 04-18-2023 take 50 mg by mouth once daily in the morning Primidone Active 50 MG PO Every morning April 17, 2023 11:00pm Start: 04-18-2023 take 100 mg by mouth once daily at bedtime Primidone Active 100 MG PO Daily at bedtime April 17, 2023 11:00pm ProAir HFA 108 (90 Base) MCG/ACT (3 sources) take 2 puff(s) by inhalation every four hours as needed ProAir HFA 108 (90 Base) MCG/ACT 2 puffs as needed Inhalation every 4 hrs Active sertraline 50 mg oral tablet (5 sources) Serotonin Reuptake Inhibitor Start: 9 take 50 mg by mouth once daily Sertraline Active 50 MG PO Daily March 10, 2019 11:00pm zonisamide 100 mg oral capsule (10 sources) Anti-epileptic Agent Start: 3 take 200 mg by mouth once daily at bedtime Zonisamide Active 200 MG PO Daily at bedtime April 17, 2023 11:00pm Start: 03-11-2019 take 1 capsule by mo uth once daily in the morning Zonisamide (Zonegran) 100 mg capsule Active 100 MG PO Every morning March 10, 2019 11:00pm take 2 capsules by m outh every twenty-four hours Zonisamide 100 MG 2 capsules Once a day Active take 3 capsules by m outh once daily at bedtime Zonisamide 100 MG 3 capsule qhs Orally daily for 30 day(s) Not-Taking Completed/Discontinued Medications Medication Drug Class(es) Dates Sig (Normalized) Sig (Original) Advair Diskus 250-50 MCG/DOSE (3 sources) take 1 puff(s) by inhalation every twelve hours Advair Diskus 250-50 MCG/DOSE 1 puff Inhalation every 12 hrs Not-Taking Budesonide-Formote rol (5 sources) Corticosteroid, beta2-Adrenergic Agonist Start: 03-11-2019 End: 04-18-2023 take 1 puff(s) by inhalation twice daily Budesonide-Formoter ol Discontinued 1 PUFF INHALATION Twice daily March 10, 2019 11:00pm April 18, 2023 11:35am Start: 03-11-2019 End: 07-06-2023 take 1 puff(s) by inhalation twice daily Budesonide-Formoterol Discontinued 1 PUFF INHALATION Twice daily March 11, 2019 12:00am April 18, 2023 12:35pm Symbicort Active celecoxib 100 mg oral capsule (5 sources) Nonsteroidal Anti-inflammatory Drug Start: 03-11-2019 End: 04-18-2023 take 100 mg by mouth once daily Celecoxib Discontinued 100 MG PO Daily March 10, 2019 11:00pm April 18, 2023 11:35am Celecoxib Active esomeprazole 40 mg delayed release oral capsule (5 sources) Proton Pump Inhibitor Start: 03-11-2019 End: 04-18-2023 take 1 capsule by mouth once daily Esomeprazole Magnesium (Nexium) 40 mg capsule,delayed release(DR/EC) Discontinued 40 MG PO Daily March 10, 2019 11:00pm April 18, 2023 11:35am Esomeprazole Mag nesium Active Fluticasone Furoate 27.5 MCG/SPRAY (3 sources) take 2 puff(s) nasal route once daily Fluticasone Furoate 27.5 MCG/SPRAY 2 puffs in each nostril Nasally Once a day for 30 day(s) Not-Taking loratadine 10 mg oral tablet (3 sources) take 1 tablet by mouth once daily Loratadine 10 MG 1 tablet Orally Once a day for 30 day(s) Not-Taking meclizine hydrochloride 25 mg oral tablet (5 sources) Antiemetic Start: 03-11-2019 End: 04-18-2023 take 25 mg by mouth once daily Meclizine Discontinued 25 MG PO Daily March 10, 2019 11:00pm April 18, 2023 11:27am Meclizine HCl Ac tive rizatriptan 10 mg oral tablet (3 sources) Serotonin-1b and Serotonin-1d Receptor Agonist take 1 tablet by mouth every eight hours Maxalt 10 MG 1 tablet Orally every 8 hrs Not-Taking rOPINIRole 0.25 mg oral tablet (5 sources) Nonergot Dopamine Agonist Start: 9 End: take 0.25 mg by mouth once daily Ropinirole Discontinued 0.25 MG PO Daily March 10, 2019 11:00pm April 18, 2023 11:27am rOPINIRole HCl A ctive tiZANidine 4 mg oral tablet (5 sources) Central alpha-2 Adrenergic Agonist Start: 03-11-2019 End: 04-18-2023 take 4 mg by mouth once daily Tizanidine Discontinued 4 MG PO Daily March 10, 2019 11:00pm April 18, 2023 11:27am tiZANidine HCl A ctive Problems Active Problems Problem Classification Problem Date Documented Da te Episodic/Chronic Abdominal pain (5 sources) Unspecified abdominal pain; Translations: [UNSPECIFIED ABDOMINAL PAIN] Onset: 2 Episodic Epilepsy; convulsions (5 sources) Epilepsy, unspecified, not intractable, without status epilepticus; Translations: [EPILEPSY UNS NOT INTRACT W/O SE] Onset: 2 Chronic Esophageal disorders (3 sources) Gastroesophageal reflux disease; Translations: [Gastro-esophageal reflux disease without esophagitis] Chronic Noninfectious gastroenteritis (4 sources) Noninfective gastroenteritis and colitis, unspecified; Translations: [NONINFECTIVE GE AND COLITIS UNS] Onset: 3 Episodic Other connective tissue disease (1 source) Other muscle spasm; Translations: [OTHER MUSCLE SPASM] Onset: 3 Episodic Other gastrointestinal disorders (7 sources) Diarrhea, unspecified; Translations: [DIARRHEA UNSPECIFIED] Onset: 2 Episodic Other gastrointestinal disorders (3 sources) Diarrhea; Translations: [Diarrhea, unspecified] Episodic Other gastrointestinal disorders (3 sources) Dysphagia; Translations: [Dysphagia, unspecified] Episodic Other liver diseases (4 sources) Liver disease, unspecified; Translations: [LIVER DISEASE UNSPECIFIED] Onset: 2 Chronic Other nervous system disorders (2 sources) Other chronic pain; Translations: [OTHER CHRONIC PAIN] Onset: 3 Chronic Other nervous system disorders (1 source) Carpal tunnel syndrome of left wrist; Translations: [Carpal tunnel syndrome, left upper limb] Chronic Other nervous system disorders (1 source) Carpal tunnel syndrome, left upper limb Chronic Other nutritional; endocrine; and metabolic disorders (1 source) Abnormal weight loss Episodic Pancreatic disorders (not diabetes) (5 sources) Pancreatic insufficiency; Translations: [Other specified diseases of pancreas] Episodic Spondylosis; intervertebral disc disorders; other back problems (16 sources) Other intervertebral disc degeneration, lumbar region; Translations: [Sacroiliitis, not elsewhere classified] Onset: 2 Chronic Spondylosis; intervertebral disc disorders; other back problems (20 sources) Muscle spasm of back; Translations: [Sacrococcygeal disorders, not elsewhere classified] Onset: 2 Episodic Unclassified (4 sources) LOW BACK PAIN, UNSPECIFIED; Translations: [LOW BACK PAIN, UNSPECIFIED] Onset: 3 Unclassified (3 sources) CONTACT W/AND (SUSP) EXPOS COVID-19; Translations: [CONTACT W/AND (SUSP) EXPOS COVID-19] Onset: 3 Unclassified (1 source) Diarrhea, unspecified; Translations: [Diarrhea, unspecified] Onset: 3 Past or Other Problems Problem Classification Problem Date Documented Da te Episodic/Chronic Open wounds of head; neck; and trunk (1 source) Laceration without foreign body of other part of head, initial encounter; Translations: [LAC W/O FB OTH PART HEAD INIT ENC] Onset: 07-30-2022 Episodic Other aftercare (1 source) 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; 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] Onset: 09-13-2022 Episodic Other injuries and conditions due to external causes (3 sources) Unspecified injury of head, initial encounter; Translations: [UNSPECIFIED INJURY HEAD INITIAL ENC] Onset: 07-28-2022 Episodic Other nervous system disorders (4 sources) Anesthesia of skin; Translations: [ANESTHESIA OF SKIN] Onset: 07-20-2022 Episodic Pneumonia (except that caused by tuberculosis or sexually transmitted disease) (1 source) Pneumonia, unspecified organism; Translations: [PNEUMONIA UNSPECIFIED ORGANISM] Onset: 09-13-2022 Episodic Screening and history of mental health and substance abuse codes (1 source) Personal history of nicotine dependence; Translations: [PERSONAL HISTORY OF NICOTINE DEPEND] Onset: 09-13-2022 Episodic Unclassified (1 source) LOW BACK PAIN, UNSPECIFIED; Translations: [LOW BACK PAIN, UNSPECIFIED] Onset: 01-31-2023 Unclassified (1 source) CONTACT W/AND (SUSP) EXPOS COVID-19; Translations: [CONTACT W/AND (SUSP) EXPOS COVID-19] Onset: 01-14-2023 Results Test Name Value Interpretation Reference Range Facility XR cervical spine w flex/ext on 08-27-2023 XR cervical spine w flex/ext [facility] [place] [address] XRay Report Signed Patient: Kalani Asencio MR#: [id number] 6 : 1970 Acct:[id number] Age/Sex: 53 / M ADM Date: 08/27/23 Loc: XD Room: Type: [facility] Attending Dr: Jemal Teague MD Copies to: Jemal Teague MD Ordering Provider: Jemal Teague MD Date of Service: 08/27/23 XR/XR cervical spine w flex/ext: M54.2 CERVICAL SPINE 6 views: CLINICAL HISTORY: Posterior neck pain for 10 years. COMPARISON: None FINDINGS: Vertebral body heights appear maintained. Mild spondylosis C4-C6 with endplate, uncovertebral and facet joint degenerative changes. No pathological motion on flexion or extension views. No prevertebral soft tissue swelling. XR/XR cervical spine w flex/ext IMPRESSION: MILD SPONDYLOSIS C4-C6. Impression dictated by: Andi Hill Jr., Susana08/27/2023 4:23 PM Dictation Location: [place] [address] Transcribed By: [facility] 08/27/231622 Dictated By: Andi Hill Jr, DO 08/27/231621 Signed By: 08/27/231622 [facility] 04-18-2023 L - -------- Specimen: [id number] Received: 04/19/23 Status: ANUM Castillo Num: [id number] Spec Type: Surgical Subm Dr: Jhon Medina MD Tissues: A Colon Biopsy (RANDOM COLON BX) Procedures: HE/2, Gross/Micro L4 -------- Age/ Patient Sex Location Account Attending Physician -------- Kalani Asencio 53/M [id number] Jhon Medina MD -------- SPEC NUM: [id number] RECD: 04/19/23 STATUS: ANUM CASTILLO NUM: [id number] LELE: 04/18/23- [facility] DR: Jhon Medina MD ENTERED: 04/19/23 [facility] DR: LUCY TYPE: Surgical DEPT: S ORDERED: HE/2, Gross/Micro L4 ORDERED: HE/2, Gross/Micro L4 Pathological Diagnosis Colon, random, biopsy: - Edematous colonic mucosa, no significant histopathologic changes. Clinical Information Diarrhea, weight loss, rule out microscopic colitis Gross Description Received in formalin labeled with the patient's name, date of and random colon are four costello tissues ranging from 0.1 cm to 0.4 x 0.2 x 0.1 cm. Entirely submitted in one cassette labeled A1. Microscopic Description Two H E slides reviewed. The microscopic examination confirms the diagnosis. CPT Codes 41265 -------- -------- Specimen: [id number] Received: 04/19/23 Status: ANUM Jonathan Num: [id number] Spec Type: Surgical Subm Dr: Jhon Medina MD Tissues: A Colon Biopsy (RANDOM COLON BX) Procedures: Twin WIN/Yolanda L4 -------- Patient: Kalani Asencio [id number] (Continued) -------- Signed (signature on file) Warren De La O MD 04/22/2302 [facility] AMYLASEon 03-12-2023 Amylase [Catalytic activity/Vol] 42 U/L Normal 25-115 [facility] Comment on above: Performed By: #### T SH, LIPA, CMP, CHILANGO ####[facility] [id number] [place] [address]Dr. Rakel Fraga CBC AUTO DIFFon 03-12-2023 BASO # 0.0 103/ul Normal 0.0-0.1 [facility] Comment on above: Performed By: #### U AMIC #### [facility] [address] [place] [address] [address] Rakel Fraga Basophils/100 WBC (Bld) 0.4 % Normal 0.2-2.0 [facility] Comment on above: Performed By: #### U AMIC #### [facility] [address] [place] [address] Dr. Rakel Fraga EO # 0.8 103/ul Critically high 0.0-0.7 [facility] Comment on above: Performed By: #### U AMIC #### [facility] [address] [place] [address] Dr. Rakel Fraga Eosinophils/100 WBC (Bld) 8.8 % Critically high 0.9-7.0 [facility] Comment on above: Performed By: #### U AMIC #### [facility] [address] [place] [address] Dr. Rakel Fraga Erythrocyte distribution width (RBC) [Ratio] 13.0 % Normal 11.0-15.0 [facility] Comment on above: Performed By: #### U AMIC #### [facility] [address] [place] [address] Dr. Rakel Fraga Hematocrit (Bld) [Volume fraction] 44.1 % Normal 42.0-54.0 [facility] Comment on above: Performed By: #### U AMIC #### [facility] [address] [place] [address] Dr. Rakel Fraga Hemoglobin (Bld) [Mass/Vol] 14.2 g/dL Normal 14.0-18.0 [facility] Comment on above: Performed By: #### U AMIC #### [facility] [address] [place] [address] Dr. Rakel Fraga IG # 0.02 10e3/ul Normal 0.00-0.03 [facility] Comment on above: Performed By: #### U AMIC #### [facility] [address] [place] [address] Dr. Rakel Fraga IG % 0.2 % Normal 0.0-0.5 [facility] Comment on above: Performed By: #### U AMIC #### [facility] [address] [place] [address] Dr. Rakel Fraga LYMPH # 1.9 103/ul Normal 1.2-3.8 [facility] Comment on above: Performed By: #### U AMIC #### [facility] [address] [place] [address] Dr. Rakel Fraga Lymphocytes/100 WBC (Bld) 20.1 % Critically low 20.5-60.0 [facility] Comment on above: Performed By: #### U AMIC #### [facility] [address] [place] [address] Dr. Rakel Fraga MANUAL DIFF REQ NO Normal [facility] Comment on above: Performed By: #### U AMIC #### [facility] [address] [place] [address] Dr. Rakel Fraga MCH (RBC) [Entitic mass] 29.8 pg Normal 25.9-34.0 [facility] Comment on above: Performed By: #### U AMIC #### [facility] [address] [place] [address] Dr. Rakel Fraga MCHC (RBC) [Mass/Vol] 32.2 g/dL Normal 29.9-35.2 [facility] Comment on above: Performed By: #### U AMIC #### [facility] [address] [place] [address] Dr. Rakel Fraga MCV (RBC) [Entitic vol] 92.5 fL Normal 80.0-94.0 [facility] Comment on above: Performed By: #### U AMIC #### [facility] [address] [place] [address] Dr. Rakel Fraga MONO # 0.5 103/ul Normal 0.3-0.8 [facility] Comment on above: Performed By: #### U AMIC #### [facility] [address] [place] [address] Dr. Rakel Fraga Monocytes/100 WBC (Bld) 5.0 % Normal 1.7-12.0 [facility] Comment on above: Performed By: #### U AMIC #### [facility] [address] [place] [address] Dr. Rakel Fraga NEUT # 6.0 103/ul Normal 1.4-6.5 [facility] Comment on above: Performed By: #### U AMIC #### [facility] [address] [place] [address] Dr. Rakel Fraga Neutrophils/100 WBC (Bld) 65.5 % Normal 43.0-75.0 [facility] Comment on above: Performed By: #### U AMIC #### [facility] [address] [place] [address] Dr. Rakel Fraga Platelet mean volume (Bld) [Entitic vol] 9.4 fL Critically low 9.5-13.5 [facility] Comment on above: Performed By: #### U AMIC #### [facility] [address] [place] [address] Dr. Rakel Fraga PLT 284 103/ul Normal 150-450 [facility] Comment on above: Performed By: #### U AMIC #### [facility] [address] [place] [address] Dr. Rakel Fraga RBC 4.77 106/ul Normal 4.70-6.10 [facility] Comment on above: Performed By: #### U AMIC #### [facility] [address] [place] [address] Dr. Rakel Fraga WBC 9.2 103/ul Normal 4.0-11.0 [facility] Comment on above: Performed By: #### U AMIC #### [facility] [address] [place] [address] Dr. Rakel Fraga LIPASEon 03-12-2023 Lipase [Catalytic activity/Vol] 76.0 U/L Normal 73.0-393.0 [facility] Comment on above: Performed By: #### T SH, LIPA, CMP, CHILANGO ####[facility] [address] [place] [address]Dr. Rakel Fraga PROF 14(COMP METB)on 023 Albumin [Mass/Vol] 3.4 g/dL Normal 3.4-5.0 [facility] Comment on above: Performed By: #### T SH, LIPA, CMP, CHILANGO ####[facility] [address] [place] [address]Dr. Rakel Fraga Albumin/Globulin [Mass ratio] 0.8 {ratio} Normal [facility] Comment on above: Performed By: #### T SH, LIPA, CMP, CHILANGO ####[facility] [address] [place], [place] [address]Dr. Rakel Fraga ALP [Catalytic activity/Vol] 159 U/L Critically high 46-116 [facility] Comment on above: Performed By: #### T SH, LIPA, CMP, CHILANGO ####[facility] [address] [place], [place] [address]Dr. Rakel Fraga ALT [Catalytic activity/Vol] 24 U/L Normal 16-63 [facility] Comment on above: Performed By: #### T SH, LIPA, CMP, CHILANGO ####[facility] [address] [place] [address]Dr. Rakel Fraga Anion gap [Moles/Vol] 12.2 mmol/L Normal [facility] Comment on above: Performed By: #### T SH, LIPA, CMP, CHILANGO ####[facility] [address] [place], [place] [address]Dr. Rakel Fraga AST [Catalytic activity/Vol] 16 U/L Normal 15-37 [facility] Comment on above: Performed By: #### T SH, LIPA, CMP, CHILANGO ####[facility] [address] [place] [address]Dr. Rakel Fraga Bilirubin [Mass/Vol] 0.2 mg/dL Normal 0.2-1.0 [facility] Comment on above: Performed By: #### T SH, LIPA, CMP, CHILANGO ####[facility] [address] [place] [address]Dr. Rakel Fraga Calcium [Mass/Vol] 8.9 mg/dL Normal 8.5-10.1 [facility] Comment on above: Performed By: #### T SH, LIPA, CMP, CHILANGO ####[facility] [address] [place] [address]Dr. Rakel Fraga Chloride [Moles/Vol] 105 mmol/L Normal 98-107 [facility] Comment on above: Performed By: #### T SH, LIPA, CMP, CHILANGO ####[facility] [address] [place], [place] [address]Dr. Rakel Fraga CO2 [Moles/Vol] 28.7 mmol/L Normal 21.0-32.0 [facility] Comment on above: Performed By: #### T SH, LIPA, CMP, CHILANGO ####[facility] [address] [place], [place] [address]Dr. Rakel Fraga Creatinine [Mass/Vol] 1.27 mg/dL Normal 0.70-1.30 [facility] Comment on above: Performed By: #### T SH, LIPA, CMP, CHILANGO ####[facility] [address] [place] [address]Dr. Rakel Fraga EGFR-AF FRENCH >60 Normal >=60 [facility] Comment on above: Performed By: #### T SH, LIPA, CMP, CHILANGO ####[facility] [address] [place] [address]Dr. Rakel Fraga EGFR-NON AF FRENCH 59 mL/min/1.73m2 Critically low >=60 [facility] Comment on above: Performed By: #### T SH, LIPA, CMP, CHILANGO ####[facility] [address] [place] [address]Dr. Rakel Fraga Globulin (S) [Mass/Vol] 4.4 g/dL Normal [facility] Comment on above: Performed By: #### T SH, LIPA, CMP, CHILANGO ####[facility] [address] [place] [address]Dr. Rakel Fraga Glucose [Mass/Vol] 95 mg/dL Normal 74-106 [facility] Comment on above: Performed By: #### T SH, LIPA, CMP, CHILANGO ####[facility] [address] [place] [address]Dr. Rakel Fraga Potassium [Moles/Vol] 3.9 mmol/L Normal 3.5-5.1 [facility] Comment on above: Performed By: #### T SH, LIPA, CMP, CHILANGO ####[facility] [address] [place] [address]Dr. Rakel Fraga Protein [Mass/Vol] 7.8 g/dL Normal 6.4-8.2 [facility] Comment on above: Performed By: #### T SH, LIPA, CMP, CHILANGO ####[facility] [address] [place] [address]Dr. Rakel Fraga Sodium [Moles/Vol] 142 mmol/L Normal 136-145 [facility] Comment on above: Performed By: #### T SH, LIPA, CMP, CHILANGO ####[facility] [address] [place] [address]Dr. Rakel Fraga Urea nitrogen [Mass/Vol] 14.0 mg/dL Normal 7.0-18.0 [facility] Comment on above: Performed By: #### T SH, LIPA, CMP, CHILANGO ####[facility] [address] [place] [address]Dr. Rakel Fraga Urea nitrogen/Creatinine [Mass ratio] 11.0 mg/mg Normal [facility] Comment on above: Performed By: #### T SH, LIPA, CMP, CHILANGO ####[facility] [address] [place] [address]Dr. Rakel Fraga SED RATE [facility] 2022 SED RATE 17 mm/hr Normal <=20 [facility] Comment on above: Performed By: #### U AMIC #### [facility] [address] [address] [address] Rakel Fraga TSHon 03-12-2023 TSH 0.793 uIU/mL Normal 0.358-3.740 [facility] Comment on above: Performed By: #### T SH, LIPA, CMP, CHILANGO ####[facility] [address] [place] [address]Dr. Rakel Fraga UA RANDOM W/MICROSCOPICon BACTERIA NONE SEEN Normal NONE SEEN [facility] Comment on above: Performed By: #### B MP #### [facility] [address] [address] [address] Rakel Fraga Bilirubin Ql (U) Negative Normal NEGATIVE [facility] Comment on above: Performed By: #### B MP #### [facility] [address] [place] [address] Dr. Rakel Fraga CAST NONE SEEN Normal NONE SEEN [facility] Comment on above: Performed By: #### B MP #### [facility] [address] [place] [address] Dr. Rakel Fraga Clarity (U) CLEAR Normal CLEAR [facility] Comment on above: Performed By: #### B MP #### [facility] [address] [place] [address] Dr. Rakel Fraga Color (U) LT. YELLOW Normal YELLOW [facility] Comment on above: Performed By: #### B MP #### [facility] [address] [place] [address] Dr. Rakel Fraga Crystals LM Nom (Urine sed) NONE SEEN Normal NONE SEEN [facility] Comment on above: Performed By: #### B MP #### [facility] [address] [place] [address] Dr. Rakel Fraga Epithelial cells LM Ql (Urine sed) NONE SEEN Normal NONE SEEN /RARE [facility] Comment on above: Performed By: #### B MP #### [facility] [address] [place] [address] Dr. Rakel Fraga Glucose Ql (U) Negative Normal NEGATIVE [facility] Comment on above: Performed By: #### B MP #### [facility] [address] [address] [address] Rakel Fraga Hemoglobin Ql (U) Negative Normal NEGATIVE [facility] Comment on above: Performed By: #### B MP #### [facility] [address] [place] [address] Dr. Rakel Fraga Ketones Ql (U) Negative Normal NEGATIVE [facility] Comment on above: Performed By: #### B MP #### [facility] [address] [place] [address] Dr. Rakel Fraga LEUKOCYTES Negative Normal NEGATIVE [facility] Comment on above: Performed By: #### B MP #### [facility] [address] [place] [address] Dr. Rakel Fraga MUCOUS NONE SEEN Normal NONE SEEN [facility] Comment on above: Performed By: #### B MP #### [facility] [address] [place] [address] Dr. Rakel Fraga Nitrite Ql (U) Negative Normal NEGATIVE [facility] Comment on above: Performed By: #### B MP #### [facility] [address] [place] [address] Dr. Rakel Fraga pH (U) 5.5 [pH] Normal 5-9 [facility] Comment on above: Performed By: #### B MP #### [facility] [address] [place] [address] Dr. Rakel Fraga RBC 0-2 Normal 0-2 [facility] Comment on above: Performed By: #### B MP #### [facility] [address] [place] [address] Dr. Rakel Fraga SPEC GRAVITY >=1.030 Abnormal 1.005-<=1.025 [facility] Comment on above: Performed By: #### B MP #### [facility] [address] [place] [address] Dr. Rakel Fraga UA PROTEIN Negative Normal NEGATIVE/ TRACE [facility] Comment on above: Performed By: #### B MP #### [facility] [address] [place] [address] Dr. Rakel Fraga Urobilinogen Qn (U) 0.2 {Arnoldo'U}/dL Normal 0.2 - 1. 0 [facility] Comment on above: Performed By: #### B MP #### [facility] [address] [place] [address] Dr. Rakel Fraga WBC NONE SEEN Normal NONE SEEN [facility] Comment on above: Performed By: #### B MP #### [facility] [address] [id number] Rakel Fraga XR KUB 1 VIEWon 03-12-2023 XR KUB 1 VIEW EXAMINATION: XR KUB 1 VIEW HISTORY: Abdominal pain COMPARISON: 02/23/2020 FINDINGS: BOWEL GAS PATTERN: No abnormal dilation or deviation. CALCIFICATIONS: None significant. OTHER: Negative. No abnormal gaseous collections. IMPRESSION: Normal bowel gas pattern Electronically authenticated by: JARETT GARCÍA Date: 2023-03-12 14:27 Normal [facility]on SARS-CoV-2 (COVID-19) RNA SHADIA+probe Ql (Unsp spec) Not detected Normal NOT DETECTED [facility] Comment on above: Result Comment: This test is not yet approved or cleared by the [place] FDA. When there are no FDA-approved or cleared tests available, and other criteria are met, FDA can make tests available under an emergency access mechanism called an Emergency Use Authorization (EUA). The EUA for this test is supported by the [place] of Health and Human Service's (HHS's) declaration that circumstances exist to justify the emergency use of in vitro diagnostics for the detection and/or diagnosis of the virus that causes COVID-19. This EUA will remain in effect (meaning this test can be used) for the duration of the COVID-19 declaration justifying emergency of IVDs, unless it is terminated or revoked by FDA (after which the test may no longer be used). When diagnostic testing is negative, the possibility of a false negative should be considered in the context of a patient's recent exposures and the presence of clinical signs and symptoms consistent with SARS-CoV-2. Performed By: #### B MP #### [facility] [address] [address] [address] Rakel Fraga INFLUENZA A AND B AGon 01-14 INFLUANEGH SEE BELOW Normal [facility] Comment on above: Result Comment: Nega tive for Flu A protein angiten. Infection due to Flu A cannot be ruled out. Flu A angiten in the sample may be below the detection limit of the test. Performed By: #### I NFLUAB #### [facility] [address] [place] [address] Dr. Rakel Fraga INFLUBNEGH SEE BELOW Normal [facility] Comment on above: Result Comment: Nega tive for Flu B protein antigen. Infection due to Flu B cannot be ruled out. Flu B antigen in the sample may be below the detection limit of the test. Performed By: #### I NFLUAB #### [facility] [address] [place] [address] Dr. Rakel Fraga INFLUENZA A AG Negative Normal NEGATIVE SEE COMMENT [facility] Comment on above: Performed By: #### I NFLUAB #### [facility] [address] [place] [address] Dr. Rakel Fraga INFLUENZA B AG Negative Normal NEGATIVE SEE COMMENT [facility] Comment on above: Performed By: #### I NFLUAB #### [facility] [address] [place] [address] Dr. Rakel Fraga SYMPTOMATIC COVID-19 ANTIGEN on 01-14-2023 EUA Statement SEE BELOW Normal [facility] Comment on above: Result Comment: This test has not been FDA cleared or approved, but has been authorized by the FDA under an Emergency Use Authorization (EUA) for use by authorized laboratories certified under CLIA that meet the requirements to perform moderate or high complexity testing. This test has been authorized only for the detection of proteins from SARS-CoV-2, not for any other viruses or pathogens. The emergency use of this test is authorized for the duration of the declaration that circumstances exist justifying the authorization of emergency use of in vitro diagnostic tests for detection and/or diagnosis of Covid-19 under section 564(b)(1) of the Act, 21 U.S.C. 360bbb-3(b)(1), unless the declaration is terminated or authorization is revoked sooner. Performed By: #### U AMIC #### [facility] [address] [place] [address] Dr. Rakel Fraga SARS-CoV-2 (COVID-19) RNA SAHDIA+probe Ql (Unsp spec) Negative Normal NEGATIVE [facility] Comment on above: Performed By: #### U AMIC #### [facility] [address] [place] [address] Dr. Rakel Fraga PANCREATIC ELASTASE FECALon 01-09-2023 Pancreatic Elastase, Fecal 90 ug Elast./g Critically low >200 [facility] Comment on above: Result Comment: Re sults verified by repeat testing Severe Pancreatic Insufficiency: <100 Moderate Pancreatic Insufficiency: 100 - 200 Normal: >200 Performed By: #### B MP #### [facility] [address] [place] [address] Dr. Rakel Fraga CBC AUTO DIFFon 01-07-2023 BASO # 0.0 103/ul Normal 0.0-0.1 [facility] Comment on above: Performed By: #### C BC #### [facility] [address] [place] [address] Dr. Rakel Fraga Basophils/100 WBC (Bld) 0.3 % Normal 0.2-2.0 [facility] Comment on above: Performed By: #### C BC #### [facility] [address] [place] [address] Dr. Rakel Fraga EO # 0.7 103/ul Normal 0.0-0.7 [facility] Comment on above: Performed By: #### C BC #### [facility] [address] [place] [address] Dr. Rakel Fraga Eosinophils/100 WBC (Bld) 11.6 % Critically high 0.9-7.0 [facility] Comment on above: Performed By: #### C BC #### [facility] [address] [place] [address] Dr. Rakel Fraga Erythrocyte distribution width (RBC) [Ratio] 13.5 % Normal 11.0-15.0 [facility] Comment on above: Performed By: #### C BC #### [facility] [address] [place] [address] Dr. Rakel Fraga Hematocrit (Bld) [Volume fraction] 44.3 % Normal 42.0-54.0 [facility] Comment on above: Performed By: #### C BC #### [facility] [address] [place] [address] Dr. Rakel Fraga Hemoglobin (Bld) [Mass/Vol] 14.4 g/dL Normal 14.0-18.0 [facility] Comment on above: Performed By: #### C BC #### [facility] [address] [place] [address] Dr. Rakel Fraga IG # 0.01 10e3/ul Normal 0.00-0.03 [facility] Comment on above: Performed By: #### C BC #### [facility] [address] [place] [address] Dr. Rakel Fraga IG % 0.2 % Normal 0.0-0.5 [facility] Comment on above: Performed By: #### C BC #### [facility] [address] [place] [address] Dr. Rakel Fraga LYMPH # 2.0 103/ul Normal 1.2-3.8 [facility] Comment on above: Performed By: #### C BC #### [facility] [address] [place] [address] Dr. Rakel Fraga Lymphocytes/100 WBC (Bld) 32.5 % Normal 20.5-60.0 [facility] Comment on above: Performed By: #### C BC #### [facility] [address] [place] [address] Dr. Rakel Fraga MANUAL DIFF REQ NO Normal [facility] Comment on above: Performed By: #### C BC #### [facility] [address] [place] [address] Dr. Rakel Fraga MCH (RBC) [Entitic mass] 29.8 pg Normal 25.9-34.0 [facility] Comment on above: Performed By: #### C BC #### [facility] [address] [place] [address] Dr. Rakel Fraga MCHC (RBC) [Mass/Vol] 32.5 g/dL Normal 29.9-35.2 [facility] Comment on above: Performed By: #### C BC #### [facility] [address] [place] [address] Dr. Rakel Fraga MCV (RBC) [Entitic vol] 91.5 fL Normal 80.0-94.0 [facility] Comment on above: Performed By: #### C BC #### [facility] [address] [place] [address] Dr. Rakel Fraga MONO # 0.4 103/ul Normal 0.3-0.8 [facility] Comment on above: Performed By: #### C BC #### [facility] [address] [place] [address] Dr. Rakel Fraga Monocytes/100 WBC (Bld) 7.1 % Normal 1.7-12.0 [facility] Comment on above: Performed By: #### C BC #### [facility] [address] [place] [address] Dr. Rakel Fraga NEUT # 2.9 103/ul Normal 1.4-6.5 [facility] Comment on above: Performed By: #### C BC #### [facility] [address] [place] [address] Dr. Rakel Fraga Neutrophils/100 WBC (Bld) 48.3 % Normal 43.0-75.0 [facility] Comment on above: Performed By: #### C BC #### [facility] [address] [place] [address] Dr. Rakel Fraga Platelet mean volume (Bld) [Entitic vol] 9.6 fL Normal 9.5-13.5 [facility] Comment on above: Performed By: #### C BC #### [facility] [address] [place] [address] Dr. Rakel Fraga PLT 222 103/ul Normal 150-450 [facility] Comment on above: Performed By: #### C BC #### [facility] [address] [place] [address] Dr. Rakel Fraga RBC 4.84 106/ul Normal 4.70-6.10 [facility] Comment on above: Performed By: #### C BC #### [facility] [address] [address] [address] Rakel Fraga WBC 6.0 103/ul Normal 4.0-11.0 [facility] Comment on above: Performed By: #### C BC #### [facility] [address] [address] [address] Rakel Fraga PROF 14(COMP METB)on 023 Albumin [Mass/Vol] 3.6 g/dL Normal 3.4-5.0 [facility] Comment on above: Performed By: #### C MP ####[facility] [address] [place] [address]DrKailey Fraga Albumin/Globulin [Mass ratio] 1.0 {ratio} Normal [facility] Comment on above: Performed By: #### C MP ####[facility] [address] [place] [address]Dr. Rakel Fraga ALP [Catalytic activity/Vol] 140 U/L Critically high 46-116 [facility] Comment on above: Performed By: #### C MP ####[facility] [address] [place] [address]Dr. Rakel Fraga ALT [Catalytic activity/Vol] 23 U/L Normal 16-63 [facility] Comment on above: Performed By: #### C MP ####[facility] [address] [place] [address]DrKailey Fraga Anion gap [Moles/Vol] 12.4 mmol/L Normal [facility] Comment on above: Performed By: #### C MP ####[facility] [address] [place] [address]Dr. Rakel Fraga AST [Catalytic activity/Vol] 19 U/L Normal 15-37 [facility] Comment on above: Performed By: #### C MP ####[facility] [address] [place] [address]DrKailey Fraga Bilirubin [Mass/Vol] 0.2 mg/dL Normal 0.2-1.0 [facility] Comment on above: Performed By: #### C MP ####[facility] [address] [place] [address]Dr. Rakel Fraga Calcium [Mass/Vol] 8.9 mg/dL Normal 8.5-10.1 [facility] Comment on above: Performed By: #### C MP ####[facility] [address] [place] [address]Dr. Rakel Fraga Chloride [Moles/Vol] 111 mmol/L Critically high 98-107 [facility] Comment on above: Performed By: #### C MP ####[facility] [address] [place] [address]Dr. Rakel Fraga CO2 [Moles/Vol] 27.8 mmol/L Normal 21.0-32.0 [facility] Comment on above: Performed By: #### C MP ####[facility] [address] [place], [place] [address]Dr. Rakel Fraga Creatinine [Mass/Vol] 1.26 mg/dL Normal 0.70-1.30 [facility] Comment on above: Performed By: #### C MP ####[facility] [id number] [place] [address]Dr. Rakel Fraga EGFR-AF FRENCH >60 Normal >=60 [facility] Comment on above: Performed By: #### C MP ####[facility] [address] [place] [address]Dr. Rakel Fraga EGFR-NON AF FRENCH 60 mL/min/1.73m2 Normal >=60 [facility] Comment on above: Performed By: #### C MP ####[facility] [address] [place] [address]Dr. Rakel Fraga Globulin (S) [Mass/Vol] 3.6 g/dL Normal [facility] Comment on above: Performed By: #### C MP ####[facility] [address] [place] [address]Dr. Rakel Fraga Glucose [Mass/Vol] 118 mg/dL Critically high 74-106 [facility] Comment on above: Performed By: #### C MP ####[facility] [address] [place] [id number]. Rakel Fraga Potassium [Moles/Vol] 4.2 mmol/L Normal 3.5-5.1 [facility] Comment on above: Performed By: #### C MP ####[facility] [address] [place] [id number]. Rakel Fraga Protein [Mass/Vol] 7.2 g/dL Normal 6.4-8.2 [facility] Comment on above: Performed By: #### C MP ####[facility] [address] [place] [id number]. Rakel Fraga Sodium [Moles/Vol] 147 mmol/L Critically high 136-145 [facility] Comment on above: Performed By: #### C MP ####[facility] [address] [place] [address]Dr. Rakel Fraga Urea nitrogen [Mass/Vol] 17.0 mg/dL Normal 7.0-18.0 [facility] Comment on above: Performed By: #### C MP ####[facility] [address] [place] [id number]. Rakel Fraga Urea nitrogen/Creatinine [Mass ratio] 13.5 mg/mg Normal [facility] Comment on above: Performed By: #### C MP ####[facility] [address] [place] [id number]. Rakel Fraga SED RATE WESTERGRENon 2022 SED RATE 13 mm/hr Normal <=20 [facility] Comment on above: Performed By: #### S EDR ####[facility] [address] [place] [id number]. Rakel Fraga STOOL CULTUREon 01-06-2023 Campylobacter Culture Final report Normal [facility] Comment on above: Performed By: #### C XSTOOL #### [facility] [address] [address] [address] Rakel Fraga E coli Shiga Toxin EIA Negative Normal Negative [facility] Comment on above: Performed By: #### C XSTOOL #### [facility] [address] [place] [address] Dr. Rakel Fraga Result 1 Comment Normal [facility] Comment on above: Result Comment: No S almonella or Shigella recovered. Performed By: #### C XSTOOL #### [facility] [address] [place] [address] Dr. Rakel Fraga Result Comment: No C ampylobacter species isolated. Salmonella/Shigella Screen Final report Normal [facility] Comment on above: Performed By: #### C XSTOOL #### [facility] [address] [place] [address] Dr. Rakel Fraga OVA AND PARASITE EXAMINATION on 01-04-2023 Ova + Parasite Exam Final report Normal [facility] Comment on above: Result Comment: Thes e results were obtained using wet preparation(s) and trichrome stained smear. This test does not include testing for Cryptosporidium parvum, Cyclospora, or Microsporidia. Performed By: #### B MP #### [facility] [address] [place] [address] Dr. Rakel Fraga Result 1 Comment Normal [facility] Comment on above: Result Comment: No o va, cysts, or parasites seen. . One negative specimen does not rule out the possibility of a parasitic infection. Performed By: #### B MP #### [facility] [address] [place] [address] Dr. Rakel Fraga C. DIFF PCRon 01-02-2023 C. DIFFICILE PCR Negative Normal NEGATIVE [facility] Comment on above: Performed By: #### U AMIC #### [facility] [address] [place] [address] Dr. Rakel Fraga OCC BLD IMMUNO SCREENon 12-13 OCCULT BLOOD Negative Normal NEGATIVE [facility] Comment on above: Performed By: #### U AMIC #### [facility] [address] [place] [address] Dr. Rakel Fraga LEVETIRACETAM, SERUM OR PLAS MAon 11-09-2022 Levetiracetam, S 20.0 ug/mL Normal 10.0-40.0 [facility] Comment on above: Performed By: #### U AMIC #### [facility] [address] [place] [address] Dr. Rakel Fraga ZONISAMIDEon 11-09-2022 Zonisamide 23.3 ug/mL Normal 10.0-40.0 [facility] Comment on above: Result Comment: Dete ction Limit = 2.0 Performed By: #### B MP #### [facility] [address] [place] [address] Dr. Rakel Fraga CBC AUTO DIFFon 11-07-2022 BASO # 0.1 103/ul Normal 0.0-0.1 [facility] Comment on above: Performed By: #### C BC #### [facility] [address] [place] [address] Dr. Rakel Fraga Basophils/100 WBC (Bld) 0.5 % Normal 0.2-2.0 [facility] Comment on above: Performed By: #### C BC #### [facility] [address] [place] [address] Dr. Rakel Fraga EO # 1.9 103/ul Critically high 0.0-0.7 [facility] Comment on above: Performed By: #### C BC #### [facility] [address] [place] [address] Dr. Rakel Fraga Eosinophils/100 WBC (Bld) 17.1 % Critically high 0.9-7.0 [facility] Comment on above: Performed By: #### C BC #### [facility] [address] [place] [address] Dr. Rakel Fraga Erythrocyte distribution width (RBC) [Ratio] 12.9 % Normal 11.0-15.0 [facility] Comment on above: Performed By: #### C BC #### [facility] [address] [place] [address] Dr. Rakel Fraga Hematocrit (Bld) [Volume fraction] 44.6 % Normal 42.0-54.0 [facility] Comment on above: Performed By: #### C BC #### [facility] [address] [place] [address] Dr. Rakel Fraga Hemoglobin (Bld) [Mass/Vol] 13.8 g/dL Critically low 14.0-18.0 [facility] Comment on above: Performed By: #### C BC #### [facility] [address] [place] [address] Dr. Rakel Fraga IG # 0.03 10e3/ul Normal 0.00-0.03 [facility] Comment on above: Performed By: #### C BC #### [facility] [address] [place] [address] Dr. Rakel Fraga IG % 0.3 % Normal 0.0-0.5 [facility] Comment on above: Performed By: #### C BC #### [facility] [address] [place] [address] Dr. Rakel Fraga LYMPH # 2.1 103/ul Normal 1.2-3.8 [facility] Comment on above: Performed By: #### C BC #### [facility] [address] [place] [address] Dr. Rakel Fraga Lymphocytes/100 WBC (Bld) 18.7 % Critically low 20.5-60.0 [facility] Comment on above: Performed By: #### C BC #### [facility] [address] [place] [address] Dr. Rakel Fraga MANUAL DIFF REQ NO Normal [facility] Comment on above: Performed By: #### C BC #### [facility] [address] [place] [address] Dr. Rakel Fraga MCH (RBC) [Entitic mass] 29.3 pg Normal 25.9-34.0 [facility] Comment on above: Performed By: #### C BC #### [facility] [address] [place] [address] Dr. Rakel Fraga MCHC (RBC) [Mass/Vol] 30.9 g/dL Normal 29.9-35.2 [facility] Comment on above: Performed By: #### C BC #### [facility] [address] [place] [address] Dr. Rakel Fraga MCV (RBC) [Entitic vol] 94.7 fL Critically high 80.0-94.0 [facility] Comment on above: Performed By: #### C BC #### [facility] [address] [place] [address] Dr. Rakel Fraga MONO # 0.6 103/ul Normal 0.3-0.8 [facility] Comment on above: Performed By: #### C BC #### [facility] [address] [place] [address] Dr. Rakel Fraga Monocytes/100 WBC (Bld) 5.4 % Normal 1.7-12.0 [facility] Comment on above: Performed By: #### C BC #### [facility] [address] [place] [address] Dr. Rakel Fraga NEUT # 6.4 103/ul Normal 1.4-6.5 [facility] Comment on above: Performed By: #### C BC #### [facility] [address] [place] [address] Dr. Rakel Fraga Neutrophils/100 WBC (Bld) 58.0 % Normal 43.0-75.0 [facility] Comment on above: Performed By: #### C BC #### [facility] [address] [place] [address] Dr. Rakel Fraga Platelet mean volume (Bld) [Entitic vol] 9.2 fL Critically low 9.5-13.5 [facility] Comment on above: Performed By: #### C BC #### [facility] [address] [place] [address] Dr. Rakel Fraga PLT 261 103/ul Normal 150-450 [facility] Comment on above: Performed By: #### C BC #### [facility] [address] [place] [address] Dr. Rakel Fraga RBC 4.71 106/ul Normal 4.70-6.10 [facility] Comment on above: Performed By: #### C BC #### [facility] [address] [place] [address] Dr. Rakel Fraga WBC 11.0 103/ul Normal 4.0-11.0 [facility] Comment on above: Performed By: #### C BC #### [facility] [address] [address] [address] Rakel Fraga PROF 14(COMP METB)on 023 Albumin [Mass/Vol] 3.6 g/dL Normal 3.4-5.0 [facility] Comment on above: Performed By: #### U AMIC #### [facility] [address] [address] [address] Rakel Fraga Albumin/Globulin [Mass ratio] 0.9 {ratio} Normal [facility] Comment on above: Performed By: #### U AMIC #### [facility] [address] [address] [address] Rakel Fraga ALP [Catalytic activity/Vol] 159 U/L Critically high 46-116 [facility] Comment on above: Performed By: #### U AMIC #### [facility] [address] [address] [address] Rakel Fraga ALT [Catalytic activity/Vol] 20 U/L Normal 16-63 [facility] Comment on above: Performed By: #### U AMIC #### [facility] [address] [address] [address] Rakel Fraga Anion gap [Moles/Vol] 11.4 mmol/L Normal [facility] Comment on above: Performed By: #### U AMIC #### [facility] [address] [address] [address] Rakel Fraga AST [Catalytic activity/Vol] 15 U/L Normal 15-37 [facility] Comment on above: Performed By: #### U AMIC #### [facility] [address] [address] [address] Rakel Fraga Bilirubin [Mass/Vol] 0.3 mg/dL Normal 0.2-1.0 [facility] Comment on above: Performed By: #### U AMIC #### [facility] [address] [address] [address] Rakel Fraga Calcium [Mass/Vol] 9.2 mg/dL Normal 8.5-10.1 [facility] Comment on above: Performed By: #### U AMIC #### [facility] [address] [address] [address] Rakel Fraga Chloride [Moles/Vol] 101 mmol/L Normal 98-107 [facility] Comment on above: Performed By: #### U AMIC #### [facility] [address] [address] [address] Rakel Fraga CO2 [Moles/Vol] 28.5 mmol/L Normal 21.0-32.0 [facility] Comment on above: Performed By: #### U AMIC #### [facility] [address] [address] [address] Rakel Fraga Creatinine [Mass/Vol] 1.07 mg/dL Normal 0.70-1.30 [facility] Comment on above: Performed By: #### U AMIC #### [facility] [address] [address] [address] Rakel Fraga EGFR-AF FRENCH >60 Normal >=60 [facility] Comment on above: Performed By: #### U AMIC #### [facility] [address] [address] [address] Rakel Fraga EGFR-NON AF FRENCH >60 Normal >=60 [facility] Comment on above: Performed By: #### U AMIC #### [facility] [address] [address] [address] Rakel Fraga Globulin (S) [Mass/Vol] 4.0 g/dL Normal [facility] Comment on above: Performed By: #### U AMIC #### [facility] [address] [address] [address] Rakel Fraga Glucose [Mass/Vol] 109 mg/dL Critically high 74-106 [facility] Comment on above: Performed By: #### U AMIC #### [facility] [address] [address] [address] Rakel Fraga Potassium [Moles/Vol] 3.9 mmol/L Normal 3.5-5.1 [facility] Comment on above: Performed By: #### U AMIC #### [facility] [address] [place], [place] [address] Dr. Rakel Fraga Protein [Mass/Vol] 7.6 g/dL Normal 6.4-8.2 [facility] Comment on above: Performed By: #### U AMIC #### [facility] [address] [place], [place] [address] Dr. Rakel Fraga Sodium [Moles/Vol] 137 mmol/L Normal 136-145 [facility] Comment on above: Performed By: #### U AMIC #### [facility] [address] [place], [place] [address] Dr. Rakel Fraga Urea nitrogen [Mass/Vol] 11.0 mg/dL Normal 7.0-18.0 [facility] Comment on above: Performed By: #### U AMIC #### [facility] [address] [place], [place] [address] Dr. Rakel Fraga Urea nitrogen/Creatinine [Mass ratio] 10.3 mg/mg Normal [facility] Comment on above: Performed By: #### U AMIC #### [facility] [address] [place], [place] [address] Dr. Rakel Fraga US SINGLE QUAD RT UPPERon US SINGLE QUAD RT UPPER EXAM: US SINGLE QUAD RT UPPER HISTORY: . Disease of liver . COMPARISON: 06/25/2022 TECHNIQUE: Grayscale and color imaging was performed FINDINGS: The pancreas appears normal. The liver is normal in size. Within the right lobe of the liver there is a small 10 mm x 6 mm hyperechoic lesion. There is a second 8 x 6 mm hyperechoic lesion within the right lobe. Color-flow is noted in the portal and hepatic veins. The gallbladder appears normal with no stones or sludge identified. No gallbladder wall thickening is noted. Common bile duct is normal measuring 3 mm. Right kidney measures 12.1 x 4.6 x 4.8 cm. No solid renal cortical masses or hydronephrosis is noted. Color-flow is noted. No fluid is noted within the right upper quadrant. IMPRESSION: 1 2 small hyperechoic lesions within the right lobe of the liver. These most likely represent benign lesion such as hemangiomas. Neoplasm is less likely. These were not appreciated on ultrasound of 06/25/2022. MRI of the liver is suggested for further evaluation. 2. The remainder of the right upper quadrant is unremarkable. Electronically authenticated by: JARETT JARVIS Date: 2022-10-09 10:17 Normal [facility] MRI LSPINE WO CONon 09-17-20 MRI LSPINE WO CON EXAMINATION: MRI LSPINE WO CON HISTORY: Lumbar radiculopathy COMPARISON: 11/03/2019 TECHNIQUE: A variety of imaging planes and parameters were utilized for visualization of suspected pathology. FINDINGS: For the purposes of numbering, sagittal T2 image # 8 extends from the T11 vertebral body superiorly to the S3 level inferiorly. PARASPINAL AREA: Normal with no visible mass. BONES: Normal alignment with no acute fracture or spondylolisthesis. No bone edema. CORD/CAUDA EQUINA: Normal caliber, contour, and signal intensity. DISC LEVELS: 12-L1: No significant disc/facet abnormality, spinal stenosis, or foraminal stenosis. L1-L2: Early degenerative disc disease is present without focal protrusion or neural impingement. L2-L3: No significant disc/facet abnormality, spinal stenosis, or foraminal stenosis. L3-L4: No significant disc/facet abnormality, spinal stenosis, or foraminal stenosis. L4-L5: Disc desiccation. Mild diffuse disc/osteophyte complex. No central or foraminal stenosis L5-S1: Moderate disc space narrowing and disc desiccation. Mild posterior disc/osteophyte complex. No central or foraminal stenosis IMPRESSION: Degenerative changes L4-L5 and L5-S1 with no definite central canal or foraminal stenosis Electronically authenticated by: JARETT GARCÍA Date: 2022-09-17 12:01 Normal [facility] CT ABD/PELVIS WO CONon 09-10 CT ABD/PELVIS WO CON EXAM: CT ABD/PELVIS WO CON 09/09/2022 10:40 PM EST [id number] CLINICAL STATEMENT: CALCULUS OF KIDNEY COMPARISON: 07/06/2022 TECHNIQUE: Helically acquired images were obtained of the abdomen and pelvis without IV contrast. No oral contrast was administered. AEC is utilized. 2-D reconstructed images are provided. FINDINGS: Contracted gallbladder. There are no radiopaque renal or ureteric calculi. There is no hydronephrosis or hydroureter. The upper abdominal solid organs are unremarkable. There is no bowel obstruction or free air. There is no ascites. There is no evidence of aortic aneurysm. There is no retroperitoneal adenopathy. There is no appendicitis or diverticulitis. Barium noted within the appendiceal lumen. There are no pelvic masses or loculated fluid collections. Patchy right lower lobe groundglass airspace disease. Degenerative changes L5-S1 There are no destructive bone lesions identified. IMPRESSION: No acute abnormality. No evidence for radiopaque renal and or ureteric calculi. Patchy right lower lobe groundglass airspace disease. FOLLOW-UP: Follow-up as clinically indicated. Electronically authenticated by: DANIELLE SAID Date: 2022-09-09 23:49 Normal [facility] CBC AUTO DIFFon 09-09-2022 BASO # 0.0 103/ul Normal 0.0-0.1 [facility] Comment on above: Performed By: #### U AMIC #### [facility] [address] [address] [address] Rakel Fraga Basophils/100 WBC (Bld) 0.4 % Normal 0.2-2.0 [facility] Comment on above: Performed By: #### U AMIC #### [facility] [address] [address] [address] Rakel Fraga EO # 0.3 103/ul Normal 0.0-0.7 [facility] Comment on above: Performed By: #### U AMIC #### [facility] [address] [address] [address] Rakle Fraga Eosinophils/100 WBC (Bld) 3.4 % Normal 0.9-7.0 [facility] Comment on above: Performed By: #### U AMIC #### [facility] [address] [address] [address] Rakel Fraga Erythrocyte distribution width (RBC) [Ratio] 13.0 % Normal 11.0-15.0 [facility] Comment on above: Performed By: #### U AMIC #### [facility] [address] [address] [address] Rakel Fraga Hematocrit (Bld) [Volume fraction] 43.8 % Normal 42.0-54.0 [facility] Comment on above: Performed By: #### U AMIC #### [facility] [address] [address] [address] Rakel Fraga Hemoglobin (Bld) [Mass/Vol] 14.6 g/dL Normal 14.0-18.0 [facility] Comment on above: Performed By: #### U AMIC #### [facility] [address] [address] [address] Rakel Fraga IG # 0.02 10e3/ul Normal 0.00-0.03 [facility] Comment on above: Performed By: #### U AMIC #### [facility] [address] [address] [address] Rakel Fraga IG % 0.2 % Normal 0.0-0.5 [facility] Comment on above: Performed By: #### U AMIC #### [facility] [address] [address] [address] Rakel Fraga LYMPH # 2.3 103/ul Normal 1.2-3.8 [facility] Comment on above: Performed By: #### U AMIC #### [facility] [address] [address] [address] Rakel Fraga Lymphocytes/100 WBC (Bld) 25.3 % Normal 20.5-60.0 [facility] Comment on above: Performed By: #### U AMIC #### [facility] [address] [address] [address] Rakel Fraga MANUAL DIFF REQ NO Normal [facility] Comment on above: Performed By: #### U AMIC #### [facility] [address] [address] [address] Rakel Fraga MCH (RBC) [Entitic mass] 30.3 pg Normal 25.9-34.0 [facility] Comment on above: Performed By: #### U AMIC #### [facility] [address] [address] [address] Rakel Fraga MCHC (RBC) [Mass/Vol] 33.3 g/dL Normal 29.9-35.2 [facility] Comment on above: Performed By: #### U AMIC #### [facility] [address] [address] [address] Rakel Fraga MCV (RBC) [Entitic vol] 90.9 fL Normal 80.0-94.0 [facility] Comment on above: Performed By: #### U AMIC #### [facility] [address] [address] [address] Rakel Fraga MONO # 0.8 103/ul Normal 0.3-0.8 [facility] Comment on above: Performed By: #### U AMIC #### [facility] [address] [address] [address] Rakel Fraga Monocytes/100 WBC (Bld) 8.5 % Normal 1.7-12.0 [facility] Comment on above: Performed By: #### U AMIC #### [facility] [address] [place] [address] Dr. Rakel Fraga NEUT # 5.5 103/ul Normal 1.4-6.5 [facility] Comment on above: Performed By: #### U AMIC #### [facility] [address] [place] [address] Dr. Rakel Fraga Neutrophils/100 WBC (Bld) 62.2 % Normal 43.0-75.0 [facility] Comment on above: Performed By: #### U AMIC #### [facility] [address] [place] [address] Dr. Rakel Fraga Platelet mean volume (Bld) [Entitic vol] 9.8 fL Normal 9.5-13.5 [facility] Comment on above: Performed By: #### U AMIC #### [facility] [address] [place] [address] Dr. Rakel Fraga PLT 252 103/ul Normal 150-450 [facility] Comment on above: Performed By: #### U AMIC #### [facility] [address] [place] [address] Dr. Rakel Fraga RBC 4.82 106/ul Normal 4.70-6.10 [facility] Comment on above: Performed By: #### U AMIC #### [facility] [address] [address] [address] Rakel Fraga WBC 8.9 103/ul Normal 4.0-11.0 [facility] Comment on above: Performed By: #### U AMIC #### [facility] [address] [place] [address] Dr. Rakel Fraga PROF CHEM 8 (BAS METB)on Anion gap [Moles/Vol] 9.4 mmol/L Normal [facility] Comment on above: Performed By: #### B MP #### [facility] [address] [place] [address] Dr. Rakel Fraga Calcium [Mass/Vol] 8.5 mg/dL Normal 8.5-10.1 [facility] Comment on above: Performed By: #### B MP #### [facility] [address] [place] [address] Dr. Rakel Fraga Chloride [Moles/Vol] 104 mmol/L Normal 98-107 [facility] Comment on above: Performed By: #### B MP #### [facility] [address] [place] [address] Dr. Rakel Fraga CO2 [Moles/Vol] 28.0 mmol/L Normal 21.0-32.0 [facility] Comment on above: Performed By: #### B MP #### [facility] [address] [place] [address] Dr. Rakel Fraga Creatinine [Mass/Vol] 1.18 mg/dL Normal 0.70-1.30 [facility] Comment on above: Performed By: #### B MP #### [facility] [address] [place], [place] [address] Dr. Rakel Fraga EGFR-AF FRENCH >60 Normal >=60 [facility] Comment on above: Performed By: #### B MP #### [facility] [address] [place] [address] Dr. Rakel Fraga EGFR-NON AF FRENCH >60 Normal >=60 [facility] Comment on above: Performed By: #### B MP #### [facility] [address] [place] [address] Dr. Rakel Fraga Glucose [Mass/Vol] 92 mg/dL Normal 74-106 [facility] Comment on above: Performed By: #### B MP #### [facility] [address] [address] [address] Rakel Fraga Potassium [Moles/Vol] 3.4 mmol/L Critically low 3.5-5.1 [facility] Comment on above: Performed By: #### B MP #### [facility] [address] [address] [address] Rakel Fraga Sodium [Moles/Vol] 138 mmol/L Normal 136-145 [facility] Comment on above: Performed By: #### B MP #### [facility] [address] [address] [address] Rakel Fraga Urea nitrogen [Mass/Vol] 20.0 mg/dL Critically high 7.0-18.0 [facility] Comment on above: Performed By: #### B MP #### [facility] [address] [address] [address] Rakel Fraga Urea nitrogen/Creatinine [Mass ratio] 16.9 mg/mg Normal [facility] Comment on above: Performed By: #### B MP #### [facility] [address] [place] [address] HEAD WO CONon 07-28-2022 CT HEAD WO CON EXAMINATION: CT HEAD WO CON HISTORY: Fall, laceration COMPARISON: MR brain 07/17/2016. TECHNIQUE: CT examination of the head without IV contrast. Dose reduction techniques were achieved by using automated exposure control and/or adjustment of mA and/or kV according to patient size and/or use of iterative reconstruction technique. FINDINGS: Calvarium/skull base: Small right frontal scalp laceration without significant associated soft tissue contusion. No underlying calvarial fracture. No evidence of acute fracture or destructive lesion. Mastoids and middle ears demonstrate no substantial mucosal disease. Paranasal sinuses: No air fluid levels. Mucosal thickening involving the partially visualized ethmoid sinuses. No air-fluid level. Brain: No acute intracranial hemorrhage. No acute large vascular territory infarct. There is redemonstration of abnormal sulcation pattern involving the bilateral posterior frontal lobes and temporal lobes surrounding the sylvian fissure. 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 No mass lesion or mass effect. No hydrocephalus. IMPRESSION: 1. No acute intracranial process. 2. Right frontal scalp laceration without substantial underlying soft tissue contusion. No underlying calvarial. 3. 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 Electronically authenticated by: CATHY DE PAZ Date: 2022-07-28 14:51 Normal [facility]-20 22 MRI [facility] CON EXAMINATION: MRI [facility] CON HISTORY: Anesthesia of skin ; chronic cervical pain, tremors COMPARISON: XR cervical spine 02/26/2019 TECHNIQUE: A variety of imaging planes and parameters were utilized for visualization of suspected pathology. FINDINGS: CRANIOCERVICAL AREA: Normal foramen magnum with no Chiari malformation. PARASPINAL AREA: Normal with no visible mass. BONES: No fracture, pars defect, or osseous lesion. CORD: Normal caliber, contour, and signal intensity. CERVICAL DISC LEVELS: C2-C3: Early degenerative disc disease is present without focal protrusion or neural impingement. C3-C4: Early degenerative disc disease is present without focal protrusion or neural impingement. C4-C5: Mild central canal narrowing. Moderate-marked right, marked left foramen narrowing. Mild diffuse disc bulging,, moderate disc height reduction, and mild uncovertebral joint spurring, and mild degenerative facet arthropathy. C5-C6: Moderate central canal narrowing. Moderate-marked right, marked left foramen narrowing. Mild disc space narrowing Mild diffuse disc bulging, mild disc at reduction, and mild uncovertebral joint spurring, and mild facet arthropathy. C6-C7: Moderate central canal and moderate bilateral foramen narrowing. Mild diffuse disc bulging and mild disc height reduction. Mild degenerative facet arthropathy. C7-T1:. Early degenerative disc disease is present without focal protrusion or neural impingement. IMPRESSION: 1. Moderate-marked foramen narrowing and moderate central canal narrowing involving C4-5, C5-6, C6-7 secondary to degenerative disc disease, uncovertebral joint spurring, and facet arthropathy. Electronically authenticated by: NOEMÍ MORRISON Date: 2022-07-20 12:52 Normal [facility] OVA AND PARASITE EXAMINATION on 07-13-2022 Ova + Parasite Exam Final report Normal [facility] Comment on above: Result Comment: Thes e results were obtained using wet preparation(s) and trichrome stained smear. This test does not include testing for Cryptosporidium parvum, Cyclospora, or Microsporidia. Performed By: #### U AMIC #### [facility] [address] [address] [address] Rakel Fraga Result 1 Comment Normal [facility] Comment on above: Result Comment: No o va, cysts, or parasites seen. . One negative specimen does not rule out the possibility of a parasitic infection. Performed By: #### U AMIC #### [facility] [address] [address] [address] Rakel Fraga CLOSTRIDIUM DIFFICILE PCRon 07-12-2022 C difficile Toxin Gene SHADIA Negative Normal Negative [facility] Comment on above: Performed By: #### C DIFNAA #### [facility] [address] [address] [address] Rakel Fraga Physician Referralon 022 Physician Referral [id number]:[id number] Normal [facility] STOOL CULTUREon 07-10-2022 Campylobacter Culture Final report Normal [facility] Comment on above: Performed By: #### C XSTOOL ####[facility] [address] [address]DrKailey Fraga E coli Shiga Toxin EIA Negative Normal Negative [facility] Comment on above: Performed By: #### C XSTOOL ####[facility] [address] [address]DrKailey Fraga Result 1 Comment Normal [facility] Comment on above: Result Comment: No S almonella or Shigella recovered. Performed By: #### C XSTOOL ####[facility] [address] [address]DrKailey Fraga Result Comment: No C ampylobacter species isolated. Salmonella/Shigella Screen Final report Normal [facility] Comment on above: Performed By: #### C XSTOOL ####[facility] [address] [address] R[address] Fr[address] CT ABD/PELV W CONon 07-07-[address] ABD/PELV W CON CT ABDOMEN/PELVIS WITH IV CONTRAST. INDICATION: Abdominal pain. COMPARISON: There are no other studies available for comparison. TECHNIQUE: Contiguous axial images were obtained from the lung bases to the pelvic floor following the intravenous administration of contrast. Coronal and sagittal reformations are provided. Approximately 100 ml Omnipaque 350 was administered intravenously. FINDINGS: LOWER LUNGS: Clear. LIVER/BILIARY TREE: There are 2 low-density lesions in the right hepatic lobe measuring up to 6 mm. No intrahepatic ductal dilatation. GALLBLADDER: No significant gallbladder wall thickening. No radiopaque stone. CBD: Normal CBD. SPLEEN: Normal in size. PANCREAS: No acute findings. No peripancreatic fluid or inflammation. No pancreatic duct dilatation. No discrete mass. ADRENALS: Normal. KIDNEYS: No hydronephrosis. No radiopaque calculus. STOMACH AND BOWEL: Stomach is unremarkable. No dilated bowel loops. No bowel wall thickening. There is oral contrast in the small bowel and right colon. Colonic diverticulosis. APPENDIX: Normal appendix. PERITONEAL CAVITY: No fluid. No fat stranding. ABDOMINAL WALL: No subcutaneous stranding. No subcutaneous fluid collection. LYMPH NODES: No mesenteric or retroperitoneal lymphadenopathy by CT criteria. ABDOMINAL AORTA: No aneurysm. PELVIS: No acute abnormality. Mild prostatomegaly. MUSCULOSKELETAL: No acute osseous abnormality. IMPRESSION: 1. No acute abnormality in the abdomen or pelvis. 2. Subcentimeter low density right hepatic lobe lesions probably cysts. Consider follow-up ultrasound in 3-6 months. Electronically authenticated by: ALBERTO REDMAN Date: 2022-07-07 16:50 Normal [facility] AMYLASEon 07-04-2022 Amylase [Catalytic activity/Vol] 40 U/L Normal 25-115 [facility] Comment on above: Performed By: #### L IPA, CHILANGO, CRP, CMP ####[facility] [address] [id number] Rakel Fraga CBC AUTO DIFFon 07-04-2022 BASO # 0.0 103/ul Normal 0.0-0.1 [facility] Comment on above: Performed By: #### B MP #### [facility] [id number] Rakel Fraga Basophils/100 WBC (Bld) 0.5 % Normal 0.2-2.0 [facility] Comment on above: Performed By: #### B MP #### [facility] [address] [place] [address] Dr. Rakel Fraga EO # 0.5 103/ul Normal 0.0-0.7 [facility] Comment on above: Performed By: #### B MP #### [facility] [address] [place] [address] Dr. Rakel Fraga Eosinophils/100 WBC (Bld) 6.8 % Normal 0.9-7.0 [facility] Comment on above: Performed By: #### B MP #### [facility] [address] [place] [address] Dr. Rakel Fraga Erythrocyte distribution width (RBC) [Ratio] 13.0 % Normal 11.0-15.0 [facility] Comment on above: Performed By: #### B MP #### [facility] [address] [place] [address] Dr. Rakel Fraga Hematocrit (Bld) [Volume fraction] 39.2 % Critically low 42.0-54.0 [facility] Comment on above: Performed By: #### B MP #### [facility] [address] [place] [address] Dr. Rakel Fraga Hemoglobin (Bld) [Mass/Vol] 12.7 g/dL Critically low 14.0-18.0 [facility] Comment on above: Performed By: #### B MP #### [facility] [address] [place] [address] Dr. Rakel Fraga IG # 0.02 10e3/ul Normal 0.00-0.03 [facility] Comment on above: Performed By: #### B MP #### [facility] [address] [place] [address] Dr. Rakel Fraga IG % 0.3 % Normal 0.0-0.5 [facility] Comment on above: Performed By: #### B MP #### [facility] [address] [place] [address] Dr. Rakel Fraga LYMPH # 1.5 103/ul Normal 1.2-3.8 [facility] Comment on above: Performed By: #### B MP #### [facility] [address] [place] [address] Dr. Rakel Fraga Lymphocytes/100 WBC (Bld) 22.4 % Normal 20.5-60.0 [facility] Comment on above: Performed By: #### B MP #### [facility] [address] [place] [address] Dr. Rakel Fraga MANUAL DIFF REQ NO Normal [facility] Comment on above: Performed By: #### B MP #### [facility] [address] [place] [address] Dr. Rakel Fraga MCH (RBC) [Entitic mass] 29.8 pg Normal 25.9-34.0 [facility] Comment on above: Performed By: #### B MP #### [facility] [address] [place] [address] Dr. Rakel Fraga MCHC (RBC) [Mass/Vol] 32.4 g/dL Normal 29.9-35.2 [facility] Comment on above: Performed By: #### B MP #### [facility] [address] [place] [address] Dr. Rakel Fraga MCV (RBC) [Entitic vol] 92.0 fL Normal 80.0-94.0 [facility] Comment on above: Performed By: #### B MP #### [facility] [address] [place] [address] Dr. Rakel Fraga MONO # 0.4 103/ul Normal 0.3-0.8 [facility] Comment on above: Performed By: #### B MP #### [facility] [address] [place] [address] Dr. Rakel Fraga Monocytes/100 WBC (Bld) 6.2 % Normal 1.7-12.0 [facility] Comment on above: Performed By: #### B MP #### [facility] [address] [place] [address] Dr. Rakel Fraga NEUT # 4.2 103/ul Normal 1.4-6.5 [facility] Comment on above: Performed By: #### B MP #### [facility] [address] [address] [address] Rakel Fraga Neutrophils/100 WBC (Bld) 63.8 % Normal 43.0-75.0 [facility] Comment on above: Performed By: #### B MP #### [facility] [address] [address] [address] Rakel Fraga Platelet mean volume (Bld) [Entitic vol] 9.8 fL Normal 9.5-13.5 [facility] Comment on above: Performed By: #### B MP #### [facility] [address] [place] [address] Dr. Rakel Fraga PLT 185 103/ul Normal 150-450 [facility] Comment on above: Performed By: #### B MP #### [facility] [address] [place] [address] Dr. Rakel Fraga RBC 4.26 106/ul Critically low 4.70-6.10 [facility] Comment on above: Performed By: #### B MP #### [facility] [address] [place] [address] Dr. Rakel Fraga WBC 6.6 103/ul Normal 4.0-11.0 [facility] Comment on above: Performed By: #### B MP #### [facility] [address] [place] [address] Dr. Rakel Fraga CRPon 07-04-2022 CRP [Mass/Vol] mg/L Normal <=1.0 [facility] Comment on above: Performed By: #### L IPA, CHILANGO, CRP, CMP ####[facility] [address] [place], [place] [address]Dr. Rakel Fraga LIPASEon 07-04-2022 Lipase [Catalytic activity/Vol] 65.0 U/L Critically low 73.0-393.0 [facility] Comment on above: Performed By: #### L IPA, CHILANGO, CRP, CMP ####[facility] [address] [place], [place] [address]Dr. Rakel Fraga OCC BLD IMMUNO SCREENon 06-15 OCCULT BLOOD Negative Normal NEGATIVE [facility] Comment on above: Performed By: #### U AMIC #### [facility] [address] [address] [address] Rakel Fraga PROF 14(COMP METB)on 022 Albumin [Mass/Vol] 3.7 g/dL Normal 3.4-5.0 [facility] Comment on above: Performed By: #### L IPA, CHILANGO, CRP, CMP ####[facility] [address] [address]Dr. Rakel Fraga Albumin/Globulin [Mass ratio] 1.2 {ratio} Normal [facility] Comment on above: Performed By: #### L IPA, CHILANGO, CRP, CMP ####[facility] [address] [address]Dr. Rakel Fraga ALP [Catalytic activity/Vol] 101 U/L Normal 46-116 [facility] Comment on above: Performed By: #### L IPA, CHILANGO, CRP, CMP ####[facility] [address] [address]Dr. Rakel Fraga ALT [Catalytic activity/Vol] 47 U/L Normal 16-63 [facility] Comment on above: Performed By: #### L IPA, CHILANGO, CRP, CMP ####[facility] [address] [address]Dr. Rakel Fraga Anion gap [Moles/Vol] 11.1 mmol/L Normal [facility] Comment on above: Performed By: #### L IPA, CHILANGO, CRP, CMP ####[facility] [address] [address]Dr. Rakel Fraga AST [Catalytic activity/Vol] 28 U/L Normal 15-37 [facility] Comment on above: Performed By: #### L IPA, CHILANGO, CRP, CMP ####[facility] [address] [address]Dr. Rakel Fraga Bilirubin [Mass/Vol] 0.5 mg/dL Normal 0.2-1.0 [facility] Comment on above: Performed By: #### L IPA, CHILANGO, CRP, CMP ####[facility] [address] [address]Dr. Rakel Fraga Calcium [Mass/Vol] 8.7 mg/dL Normal 8.5-10.1 [facility] Comment on above: Performed By: #### L IPA, CHILANGO, CRP, CMP ####[facility] [address] [address]Dr. Rakel Fraga Chloride [Moles/Vol] 110 mmol/L Critically high 98-107 [facility] Comment on above: Performed By: #### L IPA, CHILANGO, CRP, CMP ####[facility] [address] [place], [place] [address]Dr. Rakel Fraga CO2 [Moles/Vol] 26.0 mmol/L Normal 21.0-32.0 [facility] Comment on above: Performed By: #### L IPA, CHILANGO, CRP, CMP ####[facility] [address] [place], [place] [address]Dr. Rakel Fraga Creatinine [Mass/Vol] 1.23 mg/dL Normal 0.70-1.30 [facility] Comment on above: Performed By: #### L IPA, CHILANGO, CRP, CMP ####[facility] [address] [place], [place] [address]Dr. Rakel Fraga EGFR-AF FRENCH >60 Normal >=60 [facility] Comment on above: Performed By: #### L IPA, CHILANGO, CRP, CMP ####[facility] [address] [place], [place] [address]Dr. Rakel Fraga EGFR-NON AF FRENCH >60 Normal >=60 [facility] Comment on above: Performed By: #### L IPA, CHILANGO, CRP, CMP ####[facility] [address] [place], [place] [address]Dr. Rakel Fraga Globulin (S) [Mass/Vol] 3.2 g/dL Normal [facility] Comment on above: Performed By: #### L IPA, CHILANGO, CRP, CMP ####[facility] [address] [address]Dr. Rakel Fraga Glucose [Mass/Vol] 82 mg/dL Normal 74-106 [facility] Comment on above: Performed By: #### L IPA, CHILANGO, CRP, CMP ####[facility] [address] [address]Dr. Rakel Fraga Potassium [Moles/Vol] 4.1 mmol/L Normal 3.5-5.1 [facility] Comment on above: Performed By: #### L IPA, CHLIANGO, CRP, CMP ####[facility] [address] [address]Dr. Rakel Fraga Protein [Mass/Vol] 6.9 g/dL Normal 6.4-8.2 [facility] Comment on above: Performed By: #### L IPA, CHILANGO, CRP, CMP ####[facility] [address] [place], [place] [address]Dr. Rosaliechiquita Fraga Sodium [Moles/Vol] 143 mmol/L Normal 136-145 [facility] Comment on above: Performed By: #### L IPA, CHILANGO, CRP, CMP ####[facility] [address] [place], [place] [address]Dr. Rosaliechiquita Fraga Urea nitrogen [Mass/Vol] 23.0 mg/dL Critically high 7.0-18.0 [facility] Comment on above: Performed By: #### L IPA, CHILANGO, CRP, CMP ####[facility] [address] [address]Dr. Rakel Fraga Urea nitrogen/Creatinine [Mass ratio] 18.7 mg/mg Normal [facility] Comment on above: Performed By: #### L IPA, CHILANGO, CRP, CMP ####[facility] [address] [address]Dr. Rakel Fraga SED RATE WESTERGRENon 2021 SED RATE 7 mm/hr Normal <=20 [facility] Comment on above: Performed By: #### S EDR ####[facility] [address] [place], [place] [address]Dr. Rakel Fraga UA RANDOM W/MICROSCOPICon BACTERIA NONE SEEN Normal NONE SEEN [facility] Comment on above: Performed By: #### U AMIC #### [facility] [address] [address] [address] Rakel Fraga Bilirubin Ql (U) Negative Normal NEGATIVE [facility] Comment on above: Performed By: #### U AMIC #### [facility] [address] [address] [address] Rakel Fraga CAST NONE SEEN Normal NONE SEEN [facility] Comment on above: Performed By: #### U AMIC #### [facility] [address] [address] [address] Rakel Fraga Clarity (U) CLEAR Normal CLEAR [facility] Comment on above: Performed By: #### U AMIC #### [facility] [address] [place] [address] Dr. Rakel Fraga Color (U) YELLOW Normal YELLOW [facility] Comment on above: Performed By: #### U AMIC #### [facility] [address] [place] [address] Dr. Rakel Fraga Crystals LM Nom (Urine sed) NONE SEEN Normal NONE SEEN [facility] Comment on above: Performed By: #### U AMIC #### [facility] [address] [place] [address] Dr. Rakel Fraga Epithelial cells LM Ql (Urine sed) RARE Normal NONE SEEN /RARE [facility] Comment on above: Performed By: #### U AMIC #### [facility] [address] [address] [address] Rakel Fraga Glucose Ql (U) Negative Normal NEGATIVE [facility] Comment on above: Performed By: #### U AMIC #### [facility] [address] [address] [address] Rakel Fraga Hemoglobin Ql (U) Negative Normal NEGATIVE [facility] Comment on above: Performed By: #### U AMIC #### [facility] [address] [place] [address] Dr. Rakel Fraga Ketones Ql (U) Negative Normal NEGATIVE [facility] Comment on above: Performed By: #### U AMIC #### [facility] [address] [place] [address] Dr. Rakel Fraga LEUKOCYTES Negative Normal NEGATIVE [facility] Comment on above: Performed By: #### U AMIC #### [facility] [address] [place] [address] Dr. Rakel Fraga MUCOUS NONE SEEN Normal NONE SEEN [facility] Comment on above: Performed By: #### U AMIC #### [facility] [address] [address] [address] Rakel Fraga Nitrite Ql (U) Negative Normal NEGATIVE [facility] Comment on above: Performed By: #### U AMIC #### [facility] [address] [place] [address] Dr. Rakel Fraag pH (U) 5.5 [pH] Normal 5-9 [facility] Comment on above: Performed By: #### U AMIC #### [facility] [address] [place] [address] Dr. Rakel Fraga RBC NONE SEEN Abnormal 0-2 [facility] Comment on above: Performed By: #### U AMIC #### [facility] [address] [place] [address] Dr. Rakel Fraga SPEC GRAVITY >=1.030 Abnormal 1.005-<=1.025 [facility] Comment on above: Performed By: #### U AMIC #### [facility] [address] [place] [address] Dr. Rakel Fraga UA PROTEIN Negative Normal NEGATIVE/ TRACE [facility] Comment on above: Performed By: #### U AMIC #### [facility] [address] [place] [address] Dr. Rakel Fraga Urobilinogen Qn (U) 0.2 {Arnoldo'U}/dL Normal 0.2 - 1. 0 [facility] Comment on above: Performed By: #### U AMIC #### [facility] [address] [place] [address] Dr. Rakel Fraga WBC NONE SEEN Normal NONE SEEN [facility] Comment on above: Performed By: #### U AMIC #### [facility] [address] [address] [address] Rakel Fraga NM HEPATOBILIARY SCAN W EFon 06-29-2022 NM HEPATOBILIARY SCAN W EF EXAMINATION: NM HEPATOBILIARY SCAN W EF HISTORY: Right upper quadrant pain COMPARISON: No relevant comparison available. TECHNIQUE: Radionuclide hepatobiliary imaging was performed after intravenous injection of 5.1 mCi technetium 99m mebrofenin with sequential acquisitions every 1 minute for one hour. Hepatobiliary imaging with gallbladder ejection fraction analysis was then performed with sequential imaging every 1 minute for 60 minutes. 8 ounces of po ensure plus. FINDINGS: LIVER: Normal, prompt and uniform radiotracer uptake and clearing. BILIARY DUCTS: Normal radioisotopic biliary excretion. GALLBLADDER: Normal with no evidence of cystic duct obstruction. INTESTINE: Normal with no evidence of common biliary ductal obstruction. EJECTION FRACTION: 85 % within 60 minutes. (Normal EF > 38%). OTHER: Negative. IMPRESSION: Normal hepatobiliary scan and gallbladder ejection fraction Electronically authenticated by: JARETT GARCÍA Date: 2022-06-29 16:08 Normal [facility] US SINGLE QUAD RT UPPERon US SINGLE QUAD RT UPPER EXAMINATION: US SINGLE QUAD RT UPPER HISTORY: Abdominal pain , chronic COMPARISON: No relevant comparison available. TECHNIQUE: Transabdominal evaluation of the right upper quadrant. FINDINGS: LIVER: Normal size and echotexture. Color Doppler demonstrates patent hepatic veins. PORTAL VEIN: Duplex Doppler demonstrates normal hepatopetal flow pattern with flow velocity averaging 20 cm/s. GALLBLADDER: No visible gallstones, wall thickening, or pericholecystic free fluid. Negative sonographic Tarango's sign. BILIARY: No abnormal dilation or stones. Common bile duct diameter is within normal limits. PANCREASE: No visible mass, abnormal atrophy, or duct dilation. KIDNEY: No hydronephrosis. No visible mass or stones. Size: 9.4 x 3.9 x 3.9 cm IMPRESSION: 1. No acute or suspicious findings to account for patient's symptoms. Electronically authenticated by: NOEMÍ MORRISON Date: 2022-06-25 13:03 Normal [facility] Coding Summaryon 04-05-2020 Coding Summary CODING DATE: 04/05/2020 [facility] STATUS: Home PAYOR: Medicare ADMIT DX: REASON FOR VISIT DX: M47.816 Spondylosis without myelopathy or radiculopathy, lumbar region M54.5 Low back pain FINAL DX: PRINCIPAL: M47.816 Spondylosis without myelopathy or radiculopathy, lumbar region SECONDARY: M54.5 Low back pain PYMT PROC APC STAT DESCRIPTION DOCTOR NAME DATE NOTE: The code number assigned matches the documented diagnosis and / or procedure in the patient's chart. However, the narrative phrase printed from the coding software may appear abbreviated, or result in slightly different terminology. Coded By: Concha Lovett Date Saved: 04/05/2020 12:[address] [facility] Consent Formson 03-31-2020 Consent Forms [id number] .[facility] Medication Managementon 03-14 Medication Management [id number] .[facility] Anesthesia Noteon 03-30-2020 Anesthesia Note Patient: KALANI ASENCIO Age: 50 years Sex: MALE : 1970 Associated Diagnoses: None Author: Nando Saeed MD Preoperative Information Anesthesia history: Patient history: No difficult intubation, No malignant hyperthermia. Family history: No malignant hyperthermia. Review of Systems Constitutional: Negative. Respiratory: Negative, No shortness of breath. Cardiovascular: No chest pain. Neurologic: Alert and oriented X4. Health Status Allergies: Allergic Reactions (All) No Known Medication Allergies Current medications: Home Medications (9) Active albuterol , PRN, INH DULoxetine 30 mg oral delayed release capsule 30 mg = 1 cap(s), PO, Daily esomeprazole 40 mg oral delayed release capsule 40 mg = 1 cap(s), PO, Daily fexofenadine 180 mg oral tablet 180 mg = 1 tab(s), PO, Daily Os-Dez 500 (1250 mg calcium carbonate) oral tablet 1,250 mg = 1 tab(s), PO, BID PNV Plus oral tablet 1 tab(s), PO, Daily Symbicort , INH tiZANidine 4 mg oral tablet 4 mg = 1 tab(s), PO, BID zonisamide 100 mg, PO, Daily Problem list (past medical history): All Problems Depression / SNOMED CT 852363540 / Confirmed Asthma / SNOMED CT 491861873 / Confirmed Chronic maxillary sinusitis / SNOMED CT 38423531 / Confirmed Epileptic seizures / SNOMED CT 548994622 / Confirmed Lumbago / SNOMED CT 873936967 / Confirmed Lumbar spondylosis / SNOMED CT 892306129 / Confirmed Histories Family History: No family history items have been selected or recorded. Procedure history: #2 bilateral L2,3,4,5 MBB on 03/30/2020 at 50 Years. bilateral knee arthroscopies. Social History Electronic Cigarette/Vaping Assessment Electronic Cigarette Use: Use, within last 90 days. Type: Nicotine infused. Use per Day: 26-50 Inhales/day. Alcohol Assessment Use: Never. Tobacco Assessment Former smoker, quit more than 30 days ago Tobacco Use:. 30 year(s). Total pack years: 30. . Social & Psychosocial Habits Alcohol 03/08/2020 Alcohol Use: Never Tobacco 03/08/2020 Smoking tobacco use: Former smoker, quit more Number of years: 30 Total pack years: 30 Electronic Cigarette/Vaping 03/08/2020 Electronic Cigarette Use: Use, within last 90 days Type: Nicotine infused Use per Day: 26-50 Inhales/day . Physical Examination VS/Measurements Vital Signs (last 24 hrs) Last Charted Heart Rate Peripheral 71 bpm (MAR 30 09:09) Resp Rate 16 br/min (MAR 30:) SBP 130 mmHg (MAR 30:) DBP 89 mmHg (MAR 30:) SpO2 99 % (MAR 30:) Weight 70.000 kg (MAR 30:09) Height 185.42 cm (MAR 30:) Airway: Mallampati classification: II (soft palate, fauces, uvula visible). Temporomandibular joint mobility: Good. Mouth: Adequate opening, Teeth ( Within normal limits ). Neck: Full range of motion. Respiratory: Lungs are clear to auscultation. Cardiovascular: Regular rhythm. Neurologic: Alert, Oriented. Review / Management Laboratory Results Plan [place] [employer]#( A) physical status classification: Class II. Anesthetic Preoperative Plan Anesthesia: Monitored anesthesia care. Anesthetic plan, risks, benefits, and alternatives discussed with the patient and/or family. Patient verbalized understanding. [Electronically Signed on: 03/30/2020 09:37 EDT] Nando Saeed MD [Verified on: 03/30/2020 09:37 EDT] Nando Saeed MD [facility] Inpatient Patient Summaryon 03-30-2020 Inpatient [place] [address] Patient Discharge Instructions Name: KALANI ASENCIO : 1970 Patient Address: [address] [place] [address] Primary Care Provider: Name: Marcia Rodriguez DO After you are discharged if you find you have any questions, please, call [phone] ext [phone] to speak to a nurse. Discharge Diagnosis: Lumbago; Lumbar spondylosis Prescription Information: If you have been given a prescription for narcotics, seek immediate medical attention if you have any difficulty breathing or any sudden status changes such as confusion and sleepiness. If you or anyone you know is experiencing suicidal thoughts, mental health, alcohol and/or drug addiction problems; contact the [facility] 06/05 Crisis Hotline -Text 4HBLQ cu 813813. If you received any narcotics, sedation, or any other medication that causes drowsiness for the next 24 hours, unless otherwise directed: ? Do not drive a car. ? Do not operate machinery such as power tools, lawn mowers, drills, sewing machines, or stoves ? Avoid alcoholic beverages and drugs for allergies, nerves, or sleep ? Do not make important personal or business decisions or sign any legal documents [facility] would like to thank you for allowing us to assist you with your healthcare needs. The following includes patient education materials and information regarding your injury/illness. KALANI ASENCIO has been given the following list of follow-up instructions, prescriptions, and patient education materials: Follow-up Instructions Medications During the course of your visit, your medication list was updated with the most current information. The details of those changes are reflected below: Medications to Continue That Have Not Changed Other Medications albuterol Inhalation as needed shortness of breath or wheezing. budesonide-formoterol (Symbicort) Inhalation. calcium carbonate (Os-Dez 500 (1250 mg calcium carbonate) oral tablet) 1 tab(s) Oral 2 times a day. Refills: 11. DULoxetine (DULoxetine 30 mg oral delayed release capsule) 1 cap(s) Oral every day. esomeprazole (esomeprazole 40 mg oral delayed release capsule) 1 cap(s) Oral every day. fexofenadine (fexofenadine 180 mg oral tablet) 1 tab(s) Oral every day. multivitamin, (PNV Plus oral tablet) 1 tab(s) Oral every day. Refills: 11. tiZANidine (tiZANidine 4 mg oral tablet) 1 tab(s) Oral 2 times a day. zonisamide 100 Milligram Oral every day. It is important to always keep an active list of medications available so that you can share with other providers and manage your medications appropriately. As an additional courtesy, we are also providing you with your final active medications list that you can keep with you. albuterol Inhalation as needed shortness of breath or wheezing. budesonide-formoterol (Symbicort) Inhalation. calcium carbonate (Os-Dez 500 (1250 mg calcium carbonate) oral tablet) 1 tab(s) Oral 2 times a day. Refills: 11. DULoxetine (DULoxetine 30 mg oral delayed release capsule) 1 cap(s) Oral every day. esomeprazole (esomeprazole 40 mg oral delayed release capsule) 1 cap(s) Oral every day. fexofenadine (fexofenadine 180 mg oral tablet) 1 tab(s) Oral every day. multivitamin, (PNV Plus oral tablet) 1 tab(s) Oral every day. Refills: 11. tiZANidine (tiZANidine 4 mg oral tablet) 1 tab(s) Oral 2 times a day. zonisamide 100 Milligram Oral every day. Take only the medications listed above. Contact your doctor prior to taking any medications not on this list. Diet & Activity Patient Activity Level: Patient Diet: Patient Activity Restrictions: Comment: Patient education materials, if any, will display below Pain Procedure Home Care Instructions For the next 24 hours, DO NOT do any of the following activities: ? Drive a car or operate heavy machinery ? Drink alcoholic beverages ? Make legal decisions or sign any contracts ? Do not remove the bandage or dressing for 24 hours Apply ice to the injection site every 15 minutes at a time with a barrier between your skin and the ice element for protection, repeat as often as needed. There may be immediate pain relief after the procedure. Then 4-6 hours after the local anesthetic wears off, the pain may return. Do not take a shower for the first 12 hours after the procedure, no bath for 24 hours. Call your family physician if your blood sugar is greater than 250 Go to the Emergency Department if you lose control of your bowel, bladder, or legs, or have new severe pain or marked increase in pain Call the office if you have any questions. Dr. Galo ? Pain Scale DAY 1 DAY 2 DAY 3 DAY 4 DAY 5 DAY 6 DAY 7 AM AFTERNOON PM Please rate your pain each day AM, Afternoon, and PM on a scale of 0-10, with 10 being the worst pain and 0 being no pain. Please bring this scale with you to your first appointment after your procedure Viruses or Bacteria What?s got you sick? Antibiotics only treat bacterial infections. Viral illnesses cannot be treated with antibiotics. When an antibiotic is not prescribed, ask your healthcare professional for tips on how to relieve symptoms and feel better. Usual Cause Illness Viruses Bacteria Antibiotic Needed Cold/Runny Nose NO Bronchitis/Chest Cold (in otherwise healthy children and adults) NO Whooping Cough Yes Flu NO Strep Throat Yes Sore Throat (except strep) NO Fluid in the middle ear (otitis media with effusion) NO Urinary Tract Infection Yes Antibiotics Aren?t Always the Answer www.cdc.gov/getsmart GET SMART Know When Antibiotics Work U.S. Department of Health and Human Services Centers for Disease Control and Prevention June 2014 [facility] Intraoperative Record MAGR Intra-Op Record Summary Primary Physician: Hany Galo MD Finalized Date/Time: 03/30/20 09:59:33 Pt. Name: KALANI ASENCIO /Sex: 1970 MALE Med Rec #: [id number] Physician: Hany Galo MD Financial #: [id number] Pt. Type: D Room/Bed: / Admit/Disch: 03/30/20 08:43:00 - Institution: Case Times MAGR Entry 1 Patient In Room Time 03/30/20 09:48:00 Out Room Time 03/30/20 09:57:00 Anesthesia Start Time 03/30/20 09:48:00 Stop Time 03/30/20 09:56:00 Surgery Start Time 03/30/20 09:52:00 Stop Time 03/30/20 09:55:00 Last Modified By: Mitzi Wu RN 03/30/20 09:57:41 Case Attendance MAGR Entry 1 Entry 2 Entry 3 Case Attendee Hany Galo MD, Robert M MD Jasenak RN, Yudy Herbert Role Performed Surgeon - Primary Anesthesiologist of Rfid Technician Record Time In 03/30/20 09:48:00 03/30/20 09:48:00 03/30/20 09:48:00 Time Out 03/30/20 09:57:00 03/30/20 09:57:00 03/30/20 09:57:00 Procedure Medial Branch Medial Branch Medial Branch Block(Bilateral) Block(Bilateral) Block(Bilateral) Last Modified By: Mitzi Wu RN, Stephanie RN Sauer, Stephanie RN 03/30/20 09:57:46 03/30/20 09:57:46 03/30/20 09:57:46 Entry 4 Entry 5 Entry 6 Case Attendee Mitzi Wu RN, Kelly Calmes, Luke T Role Performed Rfid Technician Rfid Technician Rod Finisher Time In 03/30/20 09:48:00 03/30/20 09:48:00 03/30/20 09:48:00 Time Out 03/30/20 09:57:00 03/30/20 09:57:00 03/30/20 09:57:00 Procedure Medial Branch Medial Branch Medial Branch Block(Bilateral) Block(Bilateral) Block(Bilateral) Last Modified By: Mitzi Wu RN, Stephanie RN Sauer, Stephanie RN 03/30/20 09:57:46 03/30/20 09:57:46 03/30/20 09:57:46 Entry 7 Entry 8 Entry 9 Case Attendee Angeli Belcher Courtney INTELLIGENCE CHIEF Ke Allen CST Role Performed Scrub Personnel Scrub Personnel Rod Finisher Time In 03/30/20 09:48:00 03/30/20 09:48:00 03/30/20 09:48:00 Time Out 03/30/20 09:57:00 03/30/20 09:57:00 03/30/20 09:57:00 Procedure Medial Branch Medial Branch Medial Branch Block(Bilateral) Block(Bilateral) Block(Bilateral) Last Modified By: Mitzi Wu RN, Stephanie RN Sauer, Stephanie RN 03/30/20 09:57:46 03/30/20 09:57:46 03/30/20 09:57:46 Surgical Procedures MAGR Pre-Care Text: A.20 Verifies operative procedure, surgical site, and laterality Im.150 Develops individualized plan of care Entry 1 Procedure Medial Branch Block Primary Procedure Yes Primary Surgeon Hany Galo MD Modifiers Bilateral Surgeon Comment Bilateral Lumbar Medial Start 03/30/20 09:52:00 Branch Block. L2,L3,L4,L5. Stop 03/30/20 09:55:00 Anesthesia Type MAC Surgical Service Pain Management Wound Class Clean Technique Details Closure Technique N/A Entire procedure No was performed via laparoscope or robotic assistance Last Modified By: Mitzi Wu RN 03/30/20 09:57:52 Post-Care Text: O.730 The patient's care is consistent with the individualized perioperative plan of care General Case Data MAGR Pre-Care Text: A.350.1 Classifies surgical wound Entry 1 Case Information OR MAGR OR 05 Case Level None Wound Class Clean Specialty Pain Management ASA Class 2 Diagnosis Preop Diagnosis low back pain Postop Same As Preop Yes Postop Diagnosis low back pain Blunt or No Is the procedure Yes penetrating injury considered occured prior to Emergent/Urgent? the start of the procedure: Last Modified By: Mitzi Wu RN 03/30/20 09:58:12 Post-Care Text: O.760 Patient receives consistent and comparable care regardless of the setting Time Out MAGR Entry 1 Time out date/time 03/30/20 09:51:00 All team members Yes have introduced themselves by name and role Surgeon, Yes Surgeon reviews Yes anesthesia, nurse critical or confirm patient, unexpected steps, site, procedure operative duration, anticipated blood loss Anesthesia team Yes Nursing team Yes reviews any reviews sterility patient-specific (including concerns indicator results) and equipment issues/concerns Antibiotic Antibiotic N/A prophylaxis given within the last 60 minutes Is essential Yes imaging displayed? Last Modified By: Mitzi Wu RN 03/30/20 09:52:43 Patient Positioning MAGR Pre-Care Text: A.280 Identifies baseline musculoskeletal status Im.40 Positions the patient Im.80 Applies safety devices Entry 1 Procedure Medial Branch Body Position Prone Block(Bilateral) Left Arm Position Resting at Side Right Arm Position Resting at Side Left Leg Position Extended Right Leg Position Extended Feet Uncrossed? Yes Press Points Checked Yes Positioning Device Pillow, Safety Strap Outcome Met (O.80) Yes Last Modified By: Mitzi Wu RN 03/30/20 09:52:48 Post-Care Text: E.290 Evaluates musculoskeletal status O.80 Patient is free from signs and symptoms of injury related to positioning Skin Prep MAGR Pre-Care Text: A.30 Verifies allergies Im.270 Performs skin preparation Im.270.1 Implements protective measures to prevent skin and tissue injury due to chemical sources Entry 1 Skin Prep Syntegrity Prep Agents (Im.270) Povidone-Iodine Prep By Abida Suh INTELLIGENCE CHIEF Prep Area (Im.270) Back Skin Prep Agent Dry Yes Without Pooling Hair Removal Syntegrity Hair Removal Methods No hair removal performed Outcome Met (O.100) Yes Last Modified By: Mitzi Wu RN 03/30/20 09:55:59 Post-Care Text: E.10 Evaluates for signs and symptoms of physical injury to skin and tissue O.100 Patient is free from signs and symptoms of chemical injury X-Rays and Images MAGR Pre-Care Text: A.240 Assesses baseline skin condition A.240.1 Assesses history of previous radiation exposure Im.110 Implements protective measures to prevent injury due to radiation sources Entry 1 Site Back lower Site Details Bilateral X-Ray Type C-Arm Protective Devices Yes Used Outcome Met (O.110) Yes Last Modified By: Mitzi Wu RN 03/30/20 09:56:12 Post-Care Text: E.10 Evaluates for signs and symptoms of physical injury to skin and tissue O.110 Patient is free from signs and symptoms of radiation injury Dressing/Packing MAGR Pre-Care Text: A.350 Assesses susceptibility for infection Im.290 Administer care to wound sites Entry 1 Skin Prep Agent Yes Site Back lower Removed Prior to Dressing? Site Details Bilateral Dressing Item Details Dressing Item 2x2's Tape (Im.290) Transparent (Im.290) Outcome Met Yes Last Modified By: Mitzi Wu RN 03/30/20 09:57:12 Post-Care Text: E.200 Evaluates progress of wound healing O.200 Patient's wound perfusion is consistent with or improved from baseline levels Departure from OR MAGR Entry 1 Present on Depart Oxygen Via Stretcher Post-op Destination PACU Skin DFO Condition Dry Description Condition Warm Description Condition Intact Description Report Given To Vaibhav MORRIS, Lucia Tavarez Airway Maintenance Patient Status Stable Oxygen in Use? Yes Airway Device Nasal cannula Flow Rate 3 L/min Last Modified By: Mitzi Wu RN 03/30/20 09:57:26 Case Comments Finalized By: Mitzi Wu RN Document Signatures Signed By: Mitzi Wu RN 03/30/20 09:59 [facility] Pre-Op Record Summary Primary Physician: Hany Galo MD Finalized Date/Time: 03/30/20 10:12:44 Pt. Name: KALANI ASENCIO./Sex: 1970 MALE Med Rec #: [id number] Physician: Hany Galo MD Financial #: [id number] Pt. Type: D Room/Bed: / Admit/Disch: 03/30/20 08:43:00 - Institution: Pre-Op Case Times MAGR Pre-Care Text: Patient will be optimally prepared for surgery. Patient is free from s/s of injury. Provide information to patient/family related to plan of care. Verify patient allergies. Confirm identity and verify consent before the operative or invasive procedure. Entry 1 Patient Arrival Time 03/30/20 08:50:00 Preop Departure 03/30/20 09:46:00 Last Modified By: Kassie James RN 03/30/20 10:12:39 Post-Care Text: Patient is prepared mentally and physically and is ready for surgery. The patient remains free from s/s of injury. Patient/family express understanding of plan of care and participate in decisions affecting his or her perioperrative plan of care. Allergies documented appropriately. Patient identifiers and consent correct. General Comments: Denies chest pain, shortness of breath or illnessess. Denies pacemaker/defib. States history of sleep apnea, uses a cpap. Finalized By: Kassie James RN Document Signatures Signed By: Kassie James RN 03/30/20 10:12 Normal [facility] Operative Report - Surgeon/P hilary 03-30-2020 Operative Report - Surgeon/Physician Patient: KALANI ASENCIO Age: 50 years Sex: MALE : 1970 Associated Diagnoses: None Author: Hany Galo MD Lumbar medial branch block Preoperative Diagnosis: Lumbar spondylosis, lumbago Postoperative Diagnosis: Same Procedure Performed: Diagnostic Lumbar Medial Branch Nerve Block bilateral: L 2, L 3and L 4, L 5 Surgeon: Dr. Galo Anesthesia: mac Estimated Blood Loss: 1 ml Complications: None Description of procedure: Risks, benefits, and alternatives were reviewed with the patient. All questions were answered appropriately. Subsequent to obtaining consent, the patient was taken to the operative room. Time out was called. The operative site and procedure were confirmed with the patient. The patient was then placed in a prone position and Betadine was applied to the lumbar spine and sterile drapes were placed. Under fluoroscopic guidance, a 22 gauge spinal needle was advanced toward the pedicle and the base of the lumbar transverse process. It was directed in an anterior and medial direction, utilizing the Kevin dog? oblique fluoro view. Upon confirmation of needle tip placement, and upon negative aspiration, Marcaine 0.125% along with Depo-Medrol 40mg was injected to block the L 2, L3 medial branch bilaterally. The procedure was repeated in a similar manner to block the L 4 branches bilaterally. To block the L5 dorsal ramus, the needle was advanced toward the notch between the sacral ala and the S1 superior articulating process. Once the needle tip position was confirmed, the medication was injected and the needle was withdrawn. 0.5 ml of the drawn medication was injected per medial branch. Negative hem and negative cerebral spinal fluid was noted throughout the procedure. The patient tolerated the procedure well without any overt complications and was then taken to the recovery room. Home going instructions were given to the patient and the importance of pain diary for follow up was explained prior to procedure. [Electronically Signed on: 03/30/2020 09:56 EDT] Hany Galo MD [Verified on: 03/30/2020 09:56 EDT] Hany Galo MD [facility] Patient Handouton 03-30-2020 Patient Handout Pain Procedure Home Care Instructions For the next 24 hours, DO NOT do any of the following activities: ? Drive a car or operate heavy machinery ? Drink alcoholic beverages ? Make legal decisions or sign any contracts ? Do not remove the bandage or dressing for 24 hours Apply ice to the injection site every 15 minutes at a time with a barrier between your skin and the ice element for protection, repeat as often as needed. There may be immediate pain relief after the procedure. Then 4-6 hours after the local anesthetic wears off, the pain may return. Do not take a shower for the first 12 hours after the procedure, no bath for 24 hours. Call your family physician if your blood sugar is greater than 250 Go to the Emergency Department if you lose control of your bowel, bladder, or legs, or have new severe pain or marked increase in pain Call the office if you have any questions. Dr. Galo ? Pain Scale DAY 1 DAY 2 DAY 3 DAY 4 DAY 5 DAY 6 DAY 7 AM AFTERNOON PM Please rate your pain each day AM, Afternoon, and PM on a scale of 0-10, with 10 being the worst pain and 0 being no pain. Please bring this scale with you to your first appointment after your procedure [facility] Coding Summaryon 03-29-2020 Coding Summary CODING DATE: 03/29/2020 [facility] STATUS: Home PAYOR: Medicare ADMIT DX: REASON FOR VISIT DX: Z11.59 Encounter for screening for other viral diseases FINAL DX: PRINCIPAL: Z11.59 Encounter for screening for other viral diseases SECONDARY: PYMT PROC APC STAT DESCRIPTION DOCTOR NAME DATE NOTE: The code number assigned matches the documented diagnosis and / or procedure in the patient's chart. However, the narrative phrase printed from the coding software may appear abbreviated, or result in slightly different terminology. Coded By: Mandy Tarango Date Saved: 03/29/2020 03:[address] [facility] History and Physicalon 03-29 History and Physical [id number] #[id number] The patient has been examined and the medical record reviewed. The indications for surgery and exam are unchanged. [Electronically Signed on: 03/30/2020 08:37 EDT] Hany Galo MD [Verified on: 03/30/2020 08:37 EDT] Hany Galo MD [Transcribed on: 03/29/2020 14:32 EDT] [facility] Lab - Immunology/Serology Re sultson 03-29-2020 Lab - Immunology/Serology Results [id number] .00OTGTIFF [facility] Provider Orderson 03-28-2020 Provider Orders [id number] .00OTGTIFF [facility] SARS-CoV-2 (COVID-19) PCRon 03-28-2020 COVID-19 PCR Not Detected Normal Not Detected [facility] Comment on above: Order Comment: SENT TO [facility] 03/27/2020 SD Result Comment: Perf ormed at [facility] Department of Pathology [address] [place] [address] Results Called To Javier Dowell RN, Floorwalker By HECTOR And Read Back For Confirmation On 03/28/2020 15:36:12 EDT. Performed By: #### 6 [id number] ####[facility] (DEFAULT)[address] [place] [address] Progress Note - Provideron 0 03-25-2020 Progress Note - Provider [id number] .00OTGTIFF [facility] Coding Summaryon 03-24-2020 Coding Summary CODING DATE: 03/24/2020 [facility] STATUS: Home PAYOR: Medicare ADMIT DX: REASON FOR VISIT DX: M54.5 Low back pain FINAL DX: PRINCIPAL: M54.5 Low back pain SECONDARY: M47.816 Spondylosis without myelopathy or radiculopathy, lumbar region G89.4 Chronic pain syndrome PYMT PROC APC STAT DESCRIPTION DOCTOR NAME DATE NOTE: The code number assigned matches the documented diagnosis and / or procedure in the patient's chart. However, the narrative phrase printed from the coding software may appear abbreviated, or result in slightly different terminology. Coded By: Madeliene Baugh Date Saved: 03/24/2020 04:[address] [facility] Coding Summary CODING DATE: 03/24/2020 [facility] STATUS: Home PAYOR: Medicare ADMIT DX: REASON FOR VISIT DX: Z11.59 Encounter for screening for other viral diseases FINAL DX: PRINCIPAL: Z11.59 Encounter for screening for other viral diseases SECONDARY: PYMT PROC APC STAT DESCRIPTION DOCTOR NAME DATE NOTE: The code number assigned matches the documented diagnosis and / or procedure in the patient's chart. However, the narrative phrase printed from the coding software may appear abbreviated, or result in slightly different terminology. Coded By: Madeleine Baugh Date Saved: 03/24/2020 01:[address] [facility] Coding Summaryon 03-21-2020 Coding Summary CODING DATE: 03/21/2020 [facility] STATUS: Home PAYOR: Medicare ADMIT DX: REASON FOR VISIT DX: M47.816 Spondylosis without myelopathy or radiculopathy, lumbar region M54.5 Low back pain FINAL DX: PRINCIPAL: M47.816 Spondylosis without myelopathy or radiculopathy, lumbar region SECONDARY: M54.5 Low back pain PYMT PROC APC STAT DESCRIPTION DOCTOR NAME DATE NOTE: The code number assigned matches the documented diagnosis and / or procedure in the patient's chart. However, the narrative phrase printed from the coding software may appear abbreviated, or result in slightly different terminology. Coded By: Concha Lovett Date Saved: 03/21/2020 07:[address] [facility] Consent Formson 03-17-2020 Consent Forms [id number] .[facility] Managementon Medication Management [id number] .00[facility] Anesthesia Noteon 03-16-2020 Anesthesia Note Patient: KALANI ASENCIO Age: 50 years Sex: MALE : 1970 Associated Diagnoses: None Author: Warren Quach MD Postoperative Information Anesthetic utilized: Monitored anesthesia care. Assessment Anesthetic outcome No anesthetic complications noted. Plan Transfer/ Discharge: Patient can be discharged from PACU when criteria met. Condition good. [Electronically Signed on: 03/16/2020 10:38 EDT] Warren Quach MD [Verified on: 03/16/2020 10:38 EDT] Warren Quach MD [facility] Anesthesia Note Patient: KALANI ASENCIO Age: 50 years Sex: MALE : 1970 Associated Diagnoses: None Author: Warren Quach MD Preoperative Information Anesthesia history: Family history. Patient history: No prior anesthesia problems. Review of Systems Constitutional: Negative. Cardiovascular: No Chest Pain. No SOB. Health Status Allergies: Allergic Reactions (All) No Known Medication Allergies Current medications: Home Medications (9) Active albuterol , PRN, INH DULoxetine 30 mg oral delayed release capsule 30 mg = 1 cap(s), PO, Daily esomeprazole 40 mg oral delayed release capsule 40 mg = 1 cap(s), PO, Daily fexofenadine 180 mg oral tablet 180 mg = 1 tab(s), PO, Daily Os-Dez 500 (1250 mg calcium carbonate) oral tablet 1,250 mg = 1 tab(s), PO, BID PNV Plus oral tablet 1 tab(s), PO, Daily Symbicort , INH tiZANidine 4 mg oral tablet 4 mg = 1 tab(s), PO, BID zonisamide 100 mg, PO, Daily Problem list (past medical history): All Problems Depression / SNOMED CT 321120399 / Confirmed Asthma / SNOMED CT 278505570 / Confirmed Chronic maxillary sinusitis / SNOMED CT 01509551 / Confirmed Epileptic seizures / SNOMED CT 775445265 / Confirmed Lumbago / SNOMED CT 379320472 / Confirmed Lumbar spondylosis / SNOMED CT 972554993 / Confirmed Histories Family History: No family history items have been selected or recorded. Procedure history: bilateral knee arthroscopies. Social History Electronic Cigarette/Vaping Assessment Electronic Cigarette Use: Use, within last 90 days. Type: Nicotine infused. Use per Day: 26-50 Inhales/day. Alcohol Assessment Use: Never. Tobacco Assessment Former smoker, quit more than 30 days ago Tobacco Use:. 30 year(s). Total pack years: 30. . Social & Psychosocial Habits Alcohol 03/08/2020 Alcohol Use: Never Tobacco 03/08/2020 Smoking tobacco use: Former smoker, quit more Number of years: 30 Total pack years: 30 Electronic Cigarette/Vaping 03/08/2020 Electronic Cigarette Use: Use, within last 90 days Type: Nicotine infused Use per Day: 26-50 Inhales/day . Physical Examination General: Alert and oriented. Airway: Mallampati classification: II (soft palate, fauces, uvula visible). Temporomandibular joint mobility: Good. Respiratory: Lungs are clear to auscultation. Cardiovascular: Regular rhythm. Neurologic: Alert, Oriented. Review / Management Laboratory Results Plan [place] [employer]#( A) physical status classification: Class II. Anesthetic Preoperative Plan Anesthesia: Monitored anesthesia care. Anesthetic plan, risks, benefits, and alternatives discussed with the patient and/or family. Patient verbalized understanding. Informed consent was given. Anesthetic technique: Monitored anesthesia care. [Electronically Signed on: 03/16/2020 10:32 EDT] Warren Quach MD [Verified on: 03/16/2020 10:32 EDT] Warren Quach MD [facility] Inpatient Patient Summaryon 03-16-2020 [place]patient [place] [address] Patient Discharge Instructions Name: KALANI ASENCIO : 1970 Patient Address: [address] [place] [address] Primary Care Provider: Name: Marcia Rodriguez DO After you are discharged if you find you have any questions, please, call [phone] ext [phone] to speak to a nurse. Discharge Diagnosis: Lumbago; Lumbar spondylosis Prescription Information: If you have been given a prescription for narcotics, seek immediate medical attention if you have any difficulty breathing or any sudden status changes such as confusion and sleepiness. If you or anyone you know is experiencing suicidal thoughts, mental health, alcohol and/or drug addiction problems; contact the Mental Health & Recovery Board [facility] 06/05 Crisis Hotline -Text 4HBEX kb 304070. If you received any narcotics, sedation, or any other medication that causes drowsiness for the next 24 hours, unless otherwise directed: ? Do not drive a car. ? Do not operate machinery such as power tools, lawn mowers, drills, sewing machines, or stoves ? Avoid alcoholic beverages and drugs for allergies, nerves, or sleep ? Do not make important personal or business decisions or sign any legal documents [facility] would like to thank you for allowing us to assist you with your healthcare needs. The following includes patient education materials and information regarding your injury/illness. KALANI ASENCIO has been given the following list of follow-up instructions, prescriptions, and patient education materials: Follow-up Instructions Medications During the course of your visit, your medication list was updated with the most current information. The details of those changes are reflected below: Medications to Continue That Have Not Changed Other Medications albuterol Inhalation as needed shortness of breath or wheezing. budesonide-formoterol (Symbicort) Inhalation. calcium carbonate (Os-Dez 500 (1250 mg calcium carbonate) oral tablet) 1 tab(s) Oral 2 times a day. Refills: 11. DULoxetine (DULoxetine 30 mg oral delayed release capsule) 1 cap(s) Oral every day. esomeprazole (esomeprazole 40 mg oral delayed release capsule) 1 cap(s) Oral every day. fexofenadine (fexofenadine 180 mg oral tablet) 1 tab(s) Oral every day. multivitamin, (PNV Plus oral tablet) 1 tab(s) Oral every day. Refills: 11. tiZANidine (tiZANidine 4 mg oral tablet) 1 tab(s) Oral 2 times a day. zonisamide 100 Milligram Oral every day. It is important to always keep an active list of medications available so that you can share with other providers and manage your medications appropriately. As an additional courtesy, we are also providing you with your final active medications list that you can keep with you. albuterol Inhalation as needed shortness of breath or wheezing. budesonide-formoterol (Symbicort) Inhalation. calcium carbonate (Os-Dez 500 (1250 mg calcium carbonate) oral tablet) 1 tab(s) Oral 2 times a day. Refills: 11. DULoxetine (DULoxetine 30 mg oral delayed release capsule) 1 cap(s) Oral every day. esomeprazole (esomeprazole 40 mg oral delayed release capsule) 1 cap(s) Oral every day. fexofenadine (fexofenadine 180 mg oral tablet) 1 tab(s) Oral every day. multivitamin, (PNV Plus oral tablet) 1 tab(s) Oral every day. Refills: 11. tiZANidine (tiZANidine 4 mg oral tablet) 1 tab(s) Oral 2 times a day. zonisamide 100 Milligram Oral every day. Take only the medications listed above. Contact your doctor prior to taking any medications not on this list. Diet & Activity Patient Activity Level: Patient Diet: Patient Activity Restrictions: Comment: Patient education materials, if any, will display below Pain Procedure Home Care Instructions For the next 24 hours, DO NOT do any of the following activities: ? Drive a car or operate heavy machinery ? Drink alcoholic beverages ? Make legal decisions or sign any contracts ? Do not remove the bandage or dressing for 24 hours Apply ice to the injection site every 15 minutes at a time with a barrier between your skin and the ice element for protection, repeat as often as needed. There may be immediate pain relief after the procedure. Then 4-6 hours after the local anesthetic wears off, the pain may return. Do not take a shower for the first 12 hours after the procedure, no bath for 24 hours. Call your family physician if your blood sugar is greater than 250 Go to the Emergency Department if you lose control of your bowel, bladder, or legs, or have new severe pain or marked increase in pain Call the office if you have any questions. Dr. Galo ? Pain Scale DAY 1 DAY 2 DAY 3 DAY 4 DAY 5 DAY 6 DAY 7 AM AFTERNOON PM Please rate your pain each day AM, Afternoon, and PM on a scale of 0-10, with 10 being the worst pain and 0 being no pain. Please bring this scale with you to your first appointment after your procedure Viruses or Bacteria What?s got you sick? Antibiotics only treat bacterial infections. Viral illnesses cannot be treated with antibiotics. When an antibiotic is not prescribed, ask your healthcare professional for tips on how to relieve symptoms and feel better. Usual Cause Illness Viruses Bacteria Antibiotic Needed Cold/Runny Nose NO Bronchitis/Chest Cold (in otherwise healthy children and adults) NO Whooping Cough Yes Flu NO Strep Throat Yes Sore Throat (except strep) NO Fluid in the middle ear (otitis media with effusion) NO Urinary Tract Infection Yes Antibiotics Aren?t Always the Answer www.cdc.gov/getsmart GET SMART Know When Antibiotics Work U.S. Department of Health and Human Services Centers for Disease Control and Prevention June [address] [facility] Lab - Immunology/Serology Re sultson 03-16-2020 Lab - Immunology/Serology Results [id number] .00OTGTIFF [facility] MAGR Intraoperative Recordon 03-16-2020 MAGR Intraoperative Record MAGR Intra-Op Record Summary Primary Physician: Hany Galo MD Finalized Date/Time: 03/16/20 10:40:07 Pt. Name: KALANI ASENCIO Mario MezaB./Sex: 1970 MALE Med Rec #: [id number] Physician: Hany Galo MD Financial #: [id number] Pt. Type: D Room/Bed: / Admit/Disch: 03/16/20 08:27:35 - 03/16/20 10:56:00 Institution: Case Times MAGR Entry 1 Patient In Room Time 03/16/20 10:30:00 Out Room Time 03/16/20 10:36:00 Anesthesia Start Time 03/16/20 10:29:00 Stop Time 03/16/20 10:36:00 Surgery Start Time 03/16/20 10:31:00 Stop Time 03/16/20 10:34:00 Last Modified By: Swathi Beltran RN 03/16/20 10:40:03 Case Attendance MAGR Entry 1 Entry 2 Entry 3 Case Attendee Hany Galo MD, William MD Long, Barbara RN Role Performed Surgeon - Primary Anesthesiologist of Rfid Technician Record Time In 03/16/20 10:30:00 03/16/20 10:30:00 03/16/20 10:30:00 Time Out 03/16/20 10:36:00 03/16/20 10:36:00 03/16/20 10:36:00 Procedure Medial Branch Medial Branch Medial Branch Block(Bilateral) Block(Bilateral) Block(Bilateral) Last Modified By: Swathi Beltran RN, Barbara RN Long, Barbara RN 03/16/20 10:36:38 03/16/20 10:36:38 03/16/20 10:36:38 Entry 4 Entry 5 Entry 6 Case Attendee Jorge MORRIS, Krystle Goldman Liberty G Role Performed Rfid Technician Rfid Technician Scrub Personnel Time In 03/16/20 10:30:00 03/16/20 10:30:00 03/16/20 10:30:00 Time Out 03/16/20 10:36:00 03/16/20 10:36:00 03/16/20 10:36:00 Procedure Medial Branch Medial Branch Medial Branch Block(Bilateral) Block(Bilateral) Block(Bilateral) Last Modified By: Swathi Beltran RN, Barbara RN Long, Barbara RN 03/16/20 10:36:38 03/16/20 10:36:38 03/16/20 10:36:38 Entry 7 Case Attendee Courtney Fay Role Performed Rod Finisher Time In 03/16/20 10:30:00 Time Out 03/16/20 10:36:00 Procedure Medial Branch Block(Bilateral) Last Modified By: Swathi Beltran RN 03/16/20 10:36:38 Surgical Procedures MAGR Pre-Care Text: A.20 Verifies operative procedure, surgical site, and laterality Im.150 Develops individualized plan of care Entry 1 Procedure Medial Branch Block Primary Procedure Yes Primary Surgeon Hany Galo MD Modifiers Bilateral Surgeon Comment Bilateral Lumbar Medial Start 03/16/20 10:31:00 Branch Block L2,3 and L4,5 Stop 03/16/20 10:34:00 Anesthesia Type MAC Surgical Service Pain Management Wound Class Clean Technique Details Closure Technique N/A Entire procedure No was performed via laparoscope or robotic assistance Last Modified By: Swathi Beltran RN 03/16/20 10:35:38 Post-Care Text: O.730 The patient's care is consistent with the individualized perioperative plan of care General Case Data MAGR Pre-Care Text: A.350.1 Classifies surgical wound Entry 1 Case Information OR MAGR OR 02 Case Level None Wound Class Clean Specialty Pain Management ASA Class 2 Diagnosis Preop Diagnosis lumbar spondylosis Postop Same As Preop Yes Postop Diagnosis lumbar spondylosis Blunt or No Is the procedure No penetrating injury considered occured prior to Emergent/Urgent? the start of the procedure: Last Modified By: Swathi Beltran RN 03/16/20 10:31:39 Post-Care Text: O.760 Patient receives consistent and comparable care regardless of the setting Time Out MAGR Entry 1 Time out date/time 03/16/20 10:31:00 All team members Yes have introduced themselves by name and role Surgeon, Yes Surgeon reviews Yes anesthesia, nurse critical or confirm patient, unexpected steps, site, procedure operative duration, anticipated blood loss Anesthesia team Yes Nursing team Yes reviews any reviews sterility patient-specific (including concerns indicator results) and equipment issues/concerns Antibiotic Last Modified By: Swathi Beltran RN 03/16/20 10:31:33 Patient Positioning MAGR Pre-Care Text: A.280 Identifies baseline musculoskeletal status Im.40 Positions the patient Im.80 Applies safety devices Entry 1 Procedure Medial Branch Body Position Prone Block(Bilateral) Left Arm Position Resting at Side Right Arm Position Resting at Side Left Leg Position Extended Right Leg Position Extended Feet Uncrossed? Yes Press Points Checked Yes Positioning Device Pillow, Safety Strap Outcome Met (O.80) Yes Last Modified By: Swathi Beltran RN 03/16/20 10:27:53 Post-Care Text: E.290 Evaluates musculoskeletal status O.80 Patient is free from signs and symptoms of injury related to positioning Skin Prep MAGR Pre-Care Text: A.30 Verifies allergies Im.270 Performs skin preparation Im.270.1 Implements protective measures to prevent skin and tissue injury due to chemical sources Entry 1 Skin Prep Syntegrity Prep Agents (Im.270) Povidone-Iodine Prep By Lauren Mason G Prep Area (Im.270) Back Prep Area Details Bilateral Skin Prep Agent Dry Yes Without Pooling Hair Removal Syntegrity Hair Removal Methods No hair removal performed Outcome Met (O.100) Yes Last Modified By: Swathi Beltran RN 03/16/20 10:28:23 Post-Care Text: E.10 Evaluates for signs and symptoms of physical injury to skin and tissue O.100 Patient is free from signs and symptoms of chemical injury X-Rays and Images MAGR Pre-Care Text: A.240 Assesses baseline skin condition A.240.1 Assesses history of previous radiation exposure Im.110 Implements protective measures to prevent injury due to radiation sources Entry 1 Site Back lower Site Details Bilateral X-Ray Type C-Arm Protective Devices Yes Used Outcome Met (O.110) Yes Last Modified By: Swathi Beltran RN 03/16/20 10:28:43 Post-Care Text: E.10 Evaluates for signs and symptoms of physical injury to skin and tissue O.110 Patient is free from signs and symptoms of radiation injury Dressing/Packing MAGR Pre-Care Text: A.350 Assesses susceptibility for infection Im.290 Administer care to wound sites Entry 1 Skin Prep Agent Yes Site Back lower Removed Prior to Dressing? Site Details Bilateral Dressing Item Details Dressing Item 2x2's Tape (Im.290) Transparent (Im.290) Outcome Met Yes Last Modified By: Swathi Beltran RN 03/16/20 10:29:14 Post-Care Text: E.200 Evaluates progress of wound healing O.200 Patient's wound perfusion is consistent with or improved from baseline levels Departure from OR MAGR Entry 1 Present on Depart Oxygen Via Stretcher Post-op Destination PACU Skin DFO Condition Dry Description Condition Warm Description Condition Intact Description Report Given To Yudy Morrison RN Airway Maintenance Patient Status Stable Oxygen in Use? Yes Airway Device Nasal cannula Flow Rate 3 L/min Last Modified By: Swathi Beltran RN 03/16/20 10:29:27 Case Comments Finalized By: Swathi Beltran RN Document Signatures Signed By: Swathi Beltran RN 03/16/20 10:40 [facility]-2020 MAGR Preoperative Record MAGR Pre-Op Record Summary Primary Physician: Hany Galo MD Finalized Date/Time: 03/16/20 10:54:47 Pt. Name: KALANI ASENCIO Mario MezaB./Sex: 1970 MALE Med Rec #: [id number] Physician: Hany Galo MD Financial #: [id number] Pt. Type: D Room/Bed: / Admit/Disch: 03/16/20 08:27:35 - Institution: Pre-Op Case Times MAGR Pre-Care Text: Patient will be optimally prepared for surgery. Patient is free from s/s of injury. Provide information to patient/family related to plan of care. Verify patient allergies. Confirm identity and verify consent before the operative or invasive procedure. Entry 1 Patient Arrival Time 03/16/20 08:53:00 Preop Departure 03/16/20 10:28:00 Last Modified By: Blanka Szymanski RN 03/16/20 10:54:41 Post-Care Text: Patient is prepared mentally and physically and is ready for surgery. The patient remains free from s/s of injury. Patient/family express understanding of plan of care and participate in decisions affecting his or her perioperrative plan of care. Allergies documented appropriately. Patient identifiers and consent correct. General Comments: Pt arrives to psw ambualtory. PT has lower back pain#9. Pt denies cp,sob, cough or flu like symptoms. Pt denies pacemaker/defibillato r, has sleep apnea and wears a cpap. Finalized By: Blanka Szymanski RN Document Signatures Signed By: Blanka Szymanski RN 03/16/20 10:54 Normal [facility] Operative Report - Surgeon/P hilary 03-16-2020 Operative Report - Surgeon/Physician Patient: KALANI ASENCIO Age: 50 years Sex: MALE : 1970 Associated Diagnoses: None Author: Hany Galo MD Lumbar medial branch block Preoperative Diagnosis: Lumbar spondylosis, lumbago Postoperative Diagnosis: Same Procedure Performed: Diagnostic Lumbar Medial Branch Nerve Block bilateral: L 2, L 3and L 4, L 5 Surgeon: Dr. Galo Anesthesia: mac Estimated Blood Loss: 1 ml Complications: None Description of procedure: Risks, benefits, and alternatives were reviewed with the patient. All questions were answered appropriately. Subsequent to obtaining consent, the patient was taken to the operative room. Time out was called. The operative site and procedure were confirmed with the patient. The patient was then placed in a prone position and Betadine was applied to the lumbar spine and sterile drapes were placed. Under fluoroscopic guidance, a 22 gauge spinal needle was advanced toward the pedicle and the base of the lumbar transverse process. It was directed in an anterior and medial direction, utilizing the Kevin dog? oblique fluoro view. Upon confirmation of needle tip placement, and upon negative aspiration, Marcaine 0.125% along with Depo-Medrol 40mg was injected to block the L 2, L3 medial branch bilaterally. The procedure was repeated in a similar manner to block the L 4, L 5 branches bilaterally. To block the L5 dorsal ramus, the needle was advanced toward the notch between the sacral ala and the S1 superior articulating process. Once the needle tip position was confirmed, the medication was injected and the needle was withdrawn. 0.5 ml of the drawn medication was injected per medial branch. Negative hem and negative cerebral spinal fluid was noted throughout the procedure. The patient tolerated the procedure well without any overt complications and was then taken to the recovery room. Home going instructions were given to the patient and the importance of pain diary for follow up was explained prior to procedure. [Electronically Signed on: 03/16/2020 10:35 EDT] Hany Galo MD [Verified on: 03/16/2020 10:35 EDT] Hany Galo MD [facility] Patient Handouton 03-16-2020 Patient Handout Pain Procedure Home Care Instructions For the next 24 hours, DO NOT do any of the following activities: ? Drive a car or operate heavy machinery ? Drink alcoholic beverages ? Make legal decisions or sign any contracts ? Do not remove the bandage or dressing for 24 hours Apply ice to the injection site every 15 minutes at a time with a barrier between your skin and the ice element for protection, repeat as often as needed. There may be immediate pain relief after the procedure. Then 4-6 hours after the local anesthetic wears off, the pain may return. Do not take a shower for the first 12 hours after the procedure, no bath for 24 hours. Call your family physician if your blood sugar is greater than 250 Go to the Emergency Department if you lose control of your bowel, bladder, or legs, or have new severe pain or marked increase in pain Call the office if you have any questions. Dr. Galo ? Pain Scale DAY 1 DAY 2 DAY 3 DAY 4 DAY 5 DAY 6 DAY 7 AM AFTERNOON PM Please rate your pain each day AM, Afternoon, and PM on a scale of 0-10, with 10 being the worst pain and 0 being no pain. Please bring this scale with you to your first appointment after your procedure [facility] History and Physicalon 03-15 History and Physical [id number] .00OTGTIFF The patient has been examined and the medical record reviewed. The indications for surgery and exam are unchanged. [Electronically Signed on: 03/16/2020 10:25 EDT] Hany Galo MD [Verified on: 03/16/2020 10:25 EDT] Hany Galo MD [Transcribed on: 03/15/2020 13:40 EDT] [facility] Lab - Reference Lab Resultso n 03-15-2020 Lab - Reference Lab Results [id number] .00OTGTIFF [facility] Progress Note - Provideron 0 03-15-2020 Progress Note - Provider [id number] .00OTGTIFF [facility] SARS-CoV-2 (COVID-19) PCRon 03-15-2020 COVID-19 PCR Not Detected Normal Not Detected [facility] Comment on above: Order Comment: Sent to [facility] 03/13/2020 11:05:18 EDT SD Performed By: #### 6 [id number] ####[facility] (DEFAULT)[address] [place] [address] Provider Orderson 03-14-2020 Provider Orders [id number] .00OTGTIFF [facility] Coding Summaryon 03-10-2020 Coding Summary CODING DATE: 03/10/2020 [facility] STATUS: Home PAYOR: Medicare ADMIT DX: REASON FOR VISIT DX: M54.5 Low back pain FINAL DX: PRINCIPAL: M54.5 Low back pain SECONDARY: M47.816 Spondylosis without myelopathy or radiculopathy, lumbar region G89.4 Chronic pain syndrome PYMT PROC APC STAT DESCRIPTION DOCTOR NAME DATE NOTE: The code number assigned matches the documented diagnosis and / or procedure in the patient's chart. However, the narrative phrase printed from the coding software may appear abbreviated, or result in slightly different terminology. Coded By: Madeleine Baugh Date Saved: 03/10/2020 03:[address] [facility] Coding Summaryon 03-08-2020 Coding Summary CODING DATE: 03/08/2020 [facility] STATUS: Home PAYOR: Medicare ADMIT DX: REASON FOR VISIT DX: M54.5 Low back pain FINAL DX: PRINCIPAL: M54.5 Low back pain SECONDARY: M54.6 Pain in thoracic spine PYMT PROC APC STAT DESCRIPTION DOCTOR NAME DATE NOTE: The code number assigned matches the documented diagnosis and / or procedure in the patient's chart. However, the narrative phrase printed from the coding software may appear abbreviated, or result in slightly different terminology. Coded By: Madeleine Baugh Date Saved: 03/08/2020 09:[address] [facility] Coding Summaryon 02-29-2020 Coding Summary CODING DATE: 02/29/2020 [facility] STATUS: Home PAYOR: Medicare APC DESCRIPTION 5522 Level 2 Imaging without Contrast ADMIT DX: REASON FOR VISIT DX: M54.6 Pain in thoracic spine FINAL DX: PRINCIPAL: M54.6 Pain in thoracic spine SECONDARY: PYMT PROC APC STAT DESCRIPTION DOCTOR NAME DATE NOTE: The code number assigned matches the documented diagnosis and / or procedure in the patient's chart. However, the narrative phrase printed from the coding software may appear abbreviated, or result in slightly different terminology. Revised Coded By: Mandy Tarango Revised Date Saved: 02/24/2020 08:[address] [facility] Controlled Substances Agreem entson 02-26-2020 Controlled Substances Agreements [id number] .00OTGTIFF [facility] Progress Note - Provideron 0 02-25-2020 Progress Note - Provider [id number] .00OTGTIFF [facility] XR Spine Lumbosacral Complet e w/ Bendingon 02-23-2020 XR Spine Lumbosacral Complete w/ Bending EXAM: XR Spine Thoracic 3 Views, XR Spine Lumbosacral Complete w/ Bending HISTORY: Thoracic pain. Low back pain. COMPARISON: Thoracic spine study dated 11/09/2019 and MRI lumbar spine study dated 11/03/2019. TECHNIQUE: 3 views of the thoracic spine were obtained to include AP, lateral and directed lateral cervicothoracic junction views. FINDINGS: Vertebral body heights are grossly well-maintained. No significant disc space narrowing. Pedicles are grossly intact. No definite acute fracture or dislocation. 7 views of the lumbar spine were obtained to include AP, lateral, both oblique and directed lateral lumbosacral views. FINDINGS: Vertebral body heights are grossly well-maintained. Moderate disc space narrowing at L5-S1. Minimal anterior spurring from L3-L4 through L5-S1. Mild degenerative facet changes from L2-L3 through L5-S1 on the right as well as from L3-L4 through L5-S1 on the left. No definite acute fracture or dislocation. On flexion, neutral, and extension lateral views the vertebral bodies are similarly and unremarkably related. IMPRESSION: Thoracic spine study is grossly unremarkable. Lumbar spine study demonstrates degenerative changes as described. Vertebral bodies are similarly and unremarkably related on the lateral views. Follow-up as needed. Final Dictated by: Davi Bassett MD Dictated DT/TM: 02/26/20 6:03 Signed (Electronic Signature): Davi Bassett MD 02/26/20 6:21 am Technologist: [facility] XR Spine Thoracic 3 Viewson 02-23-2020 XR Spine Thoracic 3 Views EXAM: XR Spine Thoracic 3 Views, XR Spine Lumbosacral Complete w/ Bending HISTORY: Thoracic pain. Low back pain. COMPARISON: Thoracic spine study dated 11/09/2019 and MRI lumbar spine study dated 11/03/2019. TECHNIQUE: 3 views of the thoracic spine were obtained to include AP, lateral and directed lateral cervicothoracic junction views. FINDINGS: Vertebral body heights are grossly well-maintained. No significant disc space narrowing. Pedicles are grossly intact. No definite acute fracture or dislocation. 7 views of the lumbar spine were obtained to include AP, lateral, both oblique and directed lateral lumbosacral views. FINDINGS: Vertebral body heights are grossly well-maintained. Moderate disc space narrowing at L5-S1. Minimal anterior spurring from L3-L4 through L5-S1. Mild degenerative facet changes from L2-L3 through L5-S1 on the right as well as from L3-L4 through L5-S1 on the left. No definite acute fracture or dislocation. On flexion, neutral, and extension lateral views the vertebral bodies are similarly and unremarkably related. IMPRESSION: Thoracic spine study is grossly unremarkable. Lumbar spine study demonstrates degenerative changes as described. Vertebral bodies are similarly and unremarkably related on the lateral views. Follow-up as needed. Final Dictated by: Davi Bassett MD Dictated DT/TM: 02/26/20 6:03 Signed (Electronic Signature): Davi Bassett MD 02/26/20 6:21 am Technologist: [facility] Vital Signs Date Time Vital Sign Value Performing Clinician Facility 08-29-2023 14:20-0500 Body height 187.96 cm Jemal Teague Other [facility] Other 08-29-2023 14:20-0500 Body mass index (BMI) [Ratio] 19.9 kg/m2 Jemal Teague Other [facility] Other 08-29-2023 14:20-0500 Body weight 70.31 kg Jemal Teague Other [facility] Other 06-11-2023 14:15-0400 Body height 187.96 cm PureWRXad FlameStower Other [facility] Other 06-11-2023 14:15-0400 Body mass index (BMI) [Ratio] 19.9 kg/m2 Imad Asaad Other [facility] Other 06-11-2023 14:15-0400 Body weight 70.31 kg Imad Asaad Other [facility] Other 06-11-2023 14:15-0400 Diastolic blood pressure 71 mm[Hg] Imad Asaad Other [facility] Other 06-11-2023 14:15-0400 Respiratory rate 18 /min Imad Asaad Other [facility] Other 06-11-2023 14:15-0400 Systolic blood pressure 122 mm[Hg] Imad Asaad Other [facility] Other 04-18-2023 14:50-0400 Diastolic blood pressure 77 mm[Hg] [facility] 04-18-2023 14:50-0400 Heart rate 73 /min [facility] 04-18-2023 14:50-0400 Respiratory rate 16 /min [facility] 04-18-2023 14:50-0400 SaO2% (BldA) [Mass fraction] 98 % [facility] 04-18-2023 14:50-0400 Systolic blood pressure 106 mm[Hg] [facility] 04-18-2023 12:36-0400 Body height 185.42 cm [facility] 04-18-2023 12:36-0400 Body temperature 98.2 [degF] [facility] 04-18-2023 12:36-0400 Body weight 68.03 kg [facility] 03-13-2023 14:00-0400 Body height 187.96 cm Imad Asaad Other [facility] [employer] Other 03-13-2023 14:00-0400 Body mass index (BMI) [Ratio] 19.51 kg/m2 Imad Asaad Other [facility] Other 03-13-2023 14:00-0400 Body weight 68.95 kg Imad Asaad Other [facility] Other 03-13-2023 14:00-0400 Diastolic blood pressure 70 mm[Hg] Imad Asaad Other [facility] Other 03-13-2023 14:00-0400 Respiratory rate 18 /min Imad Asaad Other [facility] Other 03-13-2023 14:00-0400 Systolic blood pressure 150 mm[Hg] Imad Asaad Other [facility] Other Encounters Encounter Date Encounter Type Care Provider Facility Start: 10-09-2023 End: 10-09-2023 ambulatory CARMEN PRATT Not Available Start: 08-29-2023 End: 08-29-2023 ambulatory Jemal Teague Other [facility] [employer] Other Start: 08-29-2023 Office outpatient new 30 minutes Jemal Teague [facility] Start: 08-27-2023 End: 08-27-2023 ambulatory NON STAFF Facility:[facility] Start: 08-27-2023 End: 08-27-2023 ambulatory NON STAFF [facility] Work Phone: Start: 08-27-2023 End: 08-27-2023 Patient encounter procedure [facility] Work Phone: Start: 06-11-2023 End: 06-11-2023 ambulatory Imad Asaad Other [employer] Other Start: 06-11-2023 Office outpatient visit 25 minutes Imad Asaad [facility] Start: 04-18-2023 End: 04-18-2023 ambulatory Imad Asaad Facility:[facility] Start: 04-18-2023 End: 04-18-2023 Admission to same day surgery center [facility] Work Phone: Start: 04-18-2023 End: 04-18-2023 ambulatory NON STAFF [facility] Work Phone: Start: 03-13-2023 End: 03-13-2023 ambulatory Imad Asaad Other [facility] [employer] Other Start: 03-13-2023 Office outpatient new 45 minutes Imad Asaad [facility] Start: 03-12-2023 End: 03-13-[address] JARETT GARCÍA Facility:[facility] Start: 01-31-2023 End: 02-01-2023 ambulatory NARJOSEMANUELRANCATHY LAKSHMIPATHY . Facility:[facility] Start: 01-14-2023 End: 01-14-2023 ambulatory SHELIA PRATT Facility:[facility] Start: 01-07-2023 End: 01-08-2023 ambulatory SHELIA PRATT Facility:[facility] Start: 01-02-2023 End: 01-02-2023 ambulatory SHELIA PRATT Facility:[facility] Start: 11-07-2022 End: 11-08-2022 ambulatory APOORVA MOLINA Facility:[facility] Start: 11-01-2022 End: 11-02-2022 ambulatory STACY JEFFERSON . Facility:[facility] Start: 10-16-2022 End: 10-16-[address] HANY GALO . Facility:[facility] Start: 10-09-2022 End: 10-10-2022 ambulatory SHELIA PRATT Facility:[facility] Start: 09-27-2022 End: 09-28-[address] HANY GALO . Facility:[facility] Start: 09-17-2022 End: 09-18-2022 ambulatory STACY JEFFERSON . Facility:[facility] Start: 09-12-2022 End: 09-13-2022 ambulatory STACY JEFFERSON . Facility:[facility] Start: 09-09-2022 End: 09-10-2022 ambulatory NERI CARABALLO Facility:[facility] Start: 08-14-2022 ambulatory CARMEN PRATT Fa cility:[facility] Start: 08-09-2022 End: 08-10-2022 ambulatory STACY JEFFERSON . Facility:[facility] Start: 07-28-2022 End: 07-28-2022 ambulatory ELIAS COLLINS . Facility:[facility] Start: 07-20-2022 End: 07-21-2022 ambulatory DAVID ANGUIANO Facility:[facility] Start: 07-10-2022 End: 07-10-2022 ambulatory SHELIA PRATT Facility:[facility] Start: 07-10-2022 ambulatory CARMEN PRTAT Facjose luis lity:[facility] Start: 07-06-2022 End: 07-07-2022 ambulatory SHELIA PRATT Facility:[facility] Start: 07-05-2022 End: 07-05-2022 ambulatory SHELIA PRATT Facility:[facility] Start: 07-04-2022 End: 07-05-2022 ambulatory SHELIA PRATT Facility:[facility] Start: 06-29-2022 End: 06-30-2022 ambulatory SHELIA PRATT Facility:[facility] Start: 06-25-2022 End: 06-26-2022 ambulatory SHELIA PRATT Facility:[facility] Start: 05-10-2022 End: 05-11-2022 ambulatory STACY JEFFERSON . Facility: Procedures Date Procedure Procedure Detail Performing Clinician Start: 08-27-2023 X-ray of cervical spine Start: 04-18-2023 Colonoscopy Plan of Treatment Date Care Activity Detail Author Start: 05-02-2023 ambulatory Ambulatory Facility:[facility] Start: 04-18-2023 [facility] Patient Education Hemorrhoids (DC) [facility] Work Phone: Payers Date Payer Category Payer Self-pay [id number] 2014 Unknown [id number] 1969 Unknown [id number] 2.16.8 40.1.198051.3.579.2.727 1969 Unknown [id number] 2.16.84 0.1.592659.3.579.2.593 1969 Unknown [id number] 2.16.84 0.1.206048.3.579.2.593 1969 Unknown [id number] 2.16.84 0.1.564757.3.579.2.593 1969 Unknown [id number] 2.16.84 0.1.921981.3.579.2.593 1969 Unknown [id number] 2.16.84 0.1.957319.3.579.2.593 1969 Unknown [id number] 2.16.84 0.1.555934.3.579.2.593 1969 Unknown [id number] 2.16.84 0.1.786205.3.579.2.593 1969 Unknown [id number] 2.16.84 0.1.319358.3.579.2.593 1969 Unknown [id number] 2.16.84 0.1.694634.3.579.2.593 1969 Unknown [id number] 2.16.84 0.1.289350.3.579.2.593 1969 Unknown [id number] 2.16.84 0.1.476853.3.579.2.593 1969 Unknown [id number] 2.16.84 0.1.128393.3.579.2.593 1969 Unknown [id number] 2.16.84 0.1.690012.3.579.2.593 1969 Unknown [id number] 2.16.84 0.1.919308.3.579.2.593 1969 Unknown [id number] 2.16.84 0.1.617176.3.579.2.593 1969 Unknown [id number] 2.16.84 0.1.222108.3.579.2.593 1969 Unknown [id number] 2.16.84 0.1.696808.3.579.2.593 1969 Unknown [id number] 2.16.84 0.1.800939.3.579.2.593 1969 Unknown [id number] 2.16.84 0.1.669526.3.579.2.593 1969 Unknown [id number] 2.16.84 0.1.557812.3.579.2.593 1969 Unknown [id number] 2.16.84 0.1.559511.3.579.2.593 1969 Unknown [id number] 2.16.84 0.1.105488.3.579.2.593 1969 Unknown [id number] 2.16.84 0.1.992501.3.579.2.593 1969 Unknown [id number] 2.16.84 0.1.059432.3.579.2.593 1969 Unknown [id number] 2.16.840 .1.225834.3.579.2.1259 1960 Medicaid [id number] 1960 Medicare [id number] Medicare Medicare Outpatient [id number] 9A [id number] Unknown [id number] 2.16.8 40.1.952605.3.579.2.531 Unknown [id number] 2.16.8 40.1.999247.3.579.2.531 Social History Date Type Detail Facility Sex Assigned At [facility] Other Start: 04-18-2023 End: 04-18-2023 Tobacco smoking status [facility] Ex-smoker (finding) [facility] Start: 1970 Sex Assigned At Male F [facility] Goals Date Patient Goal Desired Activity /State Clinical Notes 05-10-2022 to 08-29-2023 Note Date & Type Note Facility 08-29-2023 Evaluation note Encounter Date Diagnosis Assessment Notes Aug, Neck pain (ICD-10 - M54.2) Aug, Spondylosis of cervical region without myelopathy or radiculopathy (ICD-10 - M47.812) I suspect that the numbness the patient complains about in his left arm when he lays on it is secondary to carpal tunnel he has a positive Phalen sign. His MRI in my opinion is a bit over read he has an adequate canal overall adequate foramen no true complaint of radiculopathy no weakness. His primary complaint is neck pain this is not a surgical option I think pain management is the best option for this gentleman and have given him a referral Aug, Carpal tunnel syndrome, left (ICD-10 - G56.02) [facility] Other 08-29-2023 Evaluation note* Encounter Date Diagnosis Assessment Notes Treatment Notes Treatment Clinical Notes May, Diarrhea (ICD-10 - R19.7) May, Exocrine pancreatic insufficiency (ICD-10 - K86.81) [facility]* Encounter Date Diagnosis Assessment Notes Treatment Notes Treatment Clinical Notes February, Diarrhea (ICD-10 - R19.7) February, Pancreatic insufficiency (ICD-10 - K86.89) February, Weight loss (ICD-10 - R63.4) [facility] Other 04-20-2023 NoteCONSULTATION CONSULTATION DATE: 01/31/2023 TO: Carmen Pratt CNP CHIEF COMPLAINT: Includes right lower back pain. HISTORY: Patient reports the pain as being 0-5/10 pain, deep in character with a sharp component, increased with activities such as standing, walking and performing transitioning maneuvers. He feels most comfortable in the semi-recumbent position. Denies any change in bowel and bladder habits or new sensorimotor changes in the lower extremities. EXAM: Notable for patient having no clinical radiculopathy or myelopathy involving the lower extremities. Patient did have severe myofascial spasm involving the lumbar paravertebral muscles on the right side. Although this spasm was severe, it was not very tender. There was mild to moderate dysesthesia overlying the distribution of the lateral cutaneous branch of the iliohypogastric nerve on the right side. I could not appreciate any SI joint dysfunction on today's visit. There were no clinical signs consistent with radiculopathy or myelopathy involving the lower extremities on today's visit. IMPRESSION: Patient has chronic pain secondary to residual myofascial spasm of the lumbar paravertebral muscles on the right side. RECOMMENDATIONS: I recommend he continue to use Robaxin a ordered, 500 mg b.i.d. I have recommended no further intervention for his residual pain symptoms. Will see the patient back in the office in three months' time or sooner if needed. As part of providing excellent, safe, comprehensive care, the following was completed at our patient's visit: 1. A medication reconciliation and review to ensure accurate knowledge of current/active medications, including asking our patients to inform us about any ndpi-fzs-qzwbtad medications or herbal remedies/nutritional supplements/alternative remedies. 2. A review to specifically ensure our patients have had annual screening for: elevated body mass index (BMI, see intake chart for exact total), tobacco use, screening for depression, and screening for unhealthy alcohol use. When screening is concerning, patients are provided with education and the specific recommendation to discuss the concerning health issue and treatment options with their primary care provider.[facility] [id number] Note CONSULTATION CONSULTATION DATE: 11/01/2022 HISTORY OF PRESENT ILLNESS: This is a 52-year-old gentleman who returns to the clinic accompanied by his mother, status post right SI joint injection completed on 10/16/2022. The patient states he received 80% relief and it is ongoing. He is complaining; however, of lower back pain he rates 4/10. He describes it as achy and throbbing. Prolonged standing, walking and activities aggravate his pain. He does use heat which does decrease his symptoms. One year ago, he had lumbar radiofrequency ablation L3, L4 and L5 successfully. Patient believes he is having some spasms. Medications include multiple anti-epileptics as well as baclofen 20 mg q.h.s. and diclofenac 75 mg b.i.d. Patient's REVIEW OF SYSTEMS / PAST MEDICAL HISTORY / ALLERGIES and IMAGES have been reviewed and noted on the chart. PHYSICAL EXAM: VITAL SIGNS: Blood pressure 109/79, heart rate is 98. Temperature is 97.8. He is 6'1 , weighs 163 pounds.. GENERAL IMPRESSION: Pleasant, appropriate, no acute distress, flat affect. FOCUSED EXAM - BACK: Range of motion is functional in lateral rotation and flexion/extension. Paravertebral muscles are taut but non-spasmodic. No reproduction of spinal axial pain upon compression of the lumbar facets. Faustino' point is non-tender bilaterally. Negative FABERs and compression test. MUSCULOSKELETAL: Motor is 4/5 bilaterally. Patient walks unassisted with a stable gait. NEUROLOGICALLY: Radicular sensory is intact to bilateral lower extremities. +2 patellar reflexes. Negative polyneuropathy. DIAGNOSIS: Lumbar paravertebral spasms, lower back pain, lumbar degenerative disc disease. PLAN: I explained to the patient to use Vicks VapoRub and heat application twice a day religiously. He is to do daily stretches and those were demonstrated for him. Vitamin importance as well as magnesium supplements were discussed. Patient will be seen in three months' time unless otherwise indicated. Patient agrees with this plan.[facility] [id number] Note CONSULTATION CONSULTATION DATE: 09/27/2022 HISTORY OF PRESENT ILLNESS: This is a 52-year-old gentleman who returns for MRI review of his lumbar spine. His mother is accompanying him. Today, his pain is a 4/10. He feels it is somewhat better than his last visit on 09/12/2022. Medications include baclofen 20 mg q.h.s. and diclofenac 75 mg b.i. d. MRI does show degenerative disc, particularly between L5 and S1. Negative for central canal or foraminal stenosis. Patient denies any vasomotor weakness but feels it is more painful with bending and stairs. Pain is concentrated on the right lower lumbar side. Patient's REVIEW OF SYSTEMS / PAST MEDICAL HISTORY / ALLERGIES and IMAGES have been reviewed and noted in the chart. PHYSICAL EXAM: VITAL SIGNS: Blood pressure is 124/79. Heart rate is 60. He is 5'1 , weighs 76 kg. GENERAL APPEARANCE: Pleasant, appropriate, no acute distress. FOCUSED EXAM - BACK: No reproduction of spinal axial pain noted to compression along the lower lumbar facets. Paravertebral muscles are non-spasmodic. Faustino's point is grossly tender to the right which produces positive jump response. Patient's pain radiates to the hip and anterior portion of the right groin indicative of sacroiliitis. FABERs, compression and thigh thrust tests are positive. MUSCULOSKELETAL: Motor is intact, 4/5 bilaterally with slight muscle disuse noted to the quadriceps. He walks unassisted with a stable gait. NEUROLOGICAL: Radicular sensory is intact. Negative polyneuropathy. +2 bilateral patellar reflexes. DIAGNOSIS: Right sacroiliitis, chronic lower back pain, lumbar spondylosis. PLAN: We will authorize for a right SI joint injection. The patient is to continue with his diclofenac and I recommended using heat. Patient agrees with this plan, will be followed up in the clinic thereafter.[facility] 09-12-2022 NoteCONSULTATION CONSULTATION DATE: 09/12/2022 HISTORY OF PRESENT ILLNESS: This is a 52-year-old gentleman who presents to the Pain Clinic with increased lower back pain. Three days ago, he was in the emergency department for left lower back pain. At that time, they did a CT of the abdomen and pelvis and ruled out renal calculi, but did find that he had a slight right lower lobe ground glass opacity, which they treated with Zithromax. They discharged him on baclofen 20 mg daily and ketorolac 10 mg q.i.d. p.r.n. Patient states he is feeling better, but he has 4/10 pain today. He describes it as dull and achy. Patient did have lumbar radiofrequency ablation procedures to his L2-S1 completed in October of 2020. Since then, he has been managed with diclofenac 75 mg b.i.d., Robaxin 500 mg b.i.d., as well as Zonegran. He presents today walking with a slight forward flexion and slightly unsteady. His gait is very slow. He is accompanied by his mother today. Evening hours, ADLs and sleep aggravate pain. He feels that the baclofen is more helpful than the Robaxin, and he will use heat which helps to decrease his pain. Patient's REVIEW OF SYSTEMS / PAST MEDICAL HISTORY / ALLERGIES and IMAGES have been reviewed and noted on the chart. PHYSICAL EXAM: VITAL SIGNS: Blood pressure 109/72, heart rate is 73. Temperature is 97.5. He is 6'1 and weighs 74 kg. GENERAL APPEARANCE: Pleasant, appropriate, no acute distress. Mother is present. FOCUSED EXAM - BACK: Patient has difficulty transitioning from chair to standing position. He has very guarded flexion and extension, as well as lateral rotation. Right erector spinae muscle is taut and spasmodic to the level of L2 and L3. Patient wishes for no trigger point injections today. Paravertebral muscles are taut to the left but non-spasmodic. Mild spinal axial pain is reproduced along the lower lumbar facets of L4, L5, S1 bilaterally. Faustino's point is non-tender, negative FABERs and compression tests. MUSCULOSKELETAL: Bilateral motor weakness is noted along quadriceps and anterior tibialis. Extensors are intact. NEUROLOGICALLY: Patient is cognitively intact. +1 bilateral patellar reflexes. DIAGNOSIS: Lumbar radiculopathy, lumbar degenerative disc disease, lumbar spondylosis and lumbar spasms. PLAN: We will obtain a lumbar MRI without contrast to review pathology. A refill for baclofen and diclofenac will be sent in to the pharmacy today. Patient will be brought back to the clinic following the MRI for review, as well as re-evaluate the status of his back. Patient and mother agree with the plan of care and all questions were answered.[facility] [id number] NoteCONSULTATION PROCEDURE DATE: 08/09/2022 PREOPERATIVE DIAGNOSIS: Bilateral lumbar paravertebral spasms. POSTOPERATIVE DIAGNOSIS: Bilateral lumbar paravertebral spasms. PROCEDURE: Bilateral lumbar trigger point injections. Subsequent to obtaining informed consent, the patient was placed in the upright standing forward flexion position. Alcohol prep was used to sterilize the site. A 25 gauge needle with 0.125% Marcaine and 40 mg of Kenalog for a total volume of 4 mL was used to inject in two locations. The needle was placed to rest inside the trigger point. Negative heme. Medication was injected in a slow, fan-like pattern. Patient will be followed up in the clinic in three months' time.[facility] [id number] NoteCONSULTATION CONSULTATION DATE: 08/09/2022 HISTORY OF PRESENT ILLNESS: This is a 52-year-old gentleman returning to the clinic for a three month follow up for his chronic lower back pain. He has complaint today of mid lower back pain, he rates 7-8/.10. It is greater aggravated by prolonged sitting. He did have successful radiofrequency ablations of his lumbar area earlier in the year. At his last appointment on 05/10/2022, the patient had 0/10 pain. He is active with walking and riding bikes. His medications include anticonvulsants, diclofenac 75 mg b.i.d., Robaxin 500 mg b.i.d. and Zoloft. This current pain has been aggravated over like the past 3-4 weeks. Sitting for prolonged periods of time creates a burning and sharp sensation in his lower back. Patient's REVIEW OF SYSTEMS / PAST MEDICAL HISTORY / ALLERGIES and IMAGES have been reviewed and they are noted on the chart. PHYSICAL EXAM: VITAL SIGNS: Blood pressure 106/68, heart rate is 64. Temperature is 98. Height is 6'1 and weight is 75 kg. GENERAL IMPRESSION: Pleasant, appropriate, no acute distress, but uncomfortable sitting in the chair. He is accompanied by his mother. FOCUSED EXAM - BACK: Paravertebral muscles are spasmodic bilaterally with two trigger points identified. Compression on these areas creates a positive jump response and reproduces patient's pain symptomatology. No spinal axial pain upon compression of the lumbar facets. Faustino's point is non-tender bilaterally. MUSCULOSKELETAL: Motor is intact, bilateral lower extremities, 4/5 with no vasomotor weakness noted. NEUROLOGICAL: Radicular sensory is intact with +2 bilateral reflexes. DIAGNOSIS: Bilateral lumbar spasms, lumbar degenerative disc disease and lumbar spondylosis. PLAN: Patient will receive bilateral lumbar trigger point injections, which he does consent to today in the office. I encouraged the use of a menthol heat rub and heat application in addition to seated stretches which were demonstrated. Patient will return to the clinic in three months' time unless otherwise indicated, and patient is in agreement with this.[facility] 05-10-2022 NoteCONSULTATION CONSULTATION DATE: 05/10/2022 HISTORY OF PRESENT ILLNESS: This is a pleasant, 52-year-old gentleman, returning to the clinic for a three month follow up for his chronic lower back pain. The patient had RFAs to his lumbar spine in October of this year. Overall, the patient is doing quite well and reports 0 pain today. At his last appointment, he was given instructions on exercises, stretching, nutrition and vitamins, and he has been very compliant. He exercises and walks every day and takes his prescribed medication as directed. He is on diclofenac 75 mg b.i.d., Robaxin 500 mg b.i.d., a multivitamin and magnesium. He does report a little morning stiffness, but as he increases his movement, the stiffness disappears. He has definitely taken an initiative for his own health. Patient's REVIEW OF SYSTEMS / PAST MEDICAL HISTORY / ALLERGIES and IMAGES have been reviewed and they are noted on the chart. PHYSICAL EXAM: VITAL SIGNS: Blood pressure is 120/83. Heart rate is 86. Temperature is 97.5. He is 6'1 and weighs 70 kg. GENERAL APPEARANCE: Pleasant, appropriate, in no acute distress. FOCUSED EXAM - BACK: Range of motion is functional in lateral rotation and flexion/extension. Paravertebral muscles are supple. No reproduction of spinal axial pain to direct compression on the lower lumbar facets, indicative of successful prior lumbar radiofrequency ablation. Faustino's point is non-tender. MUSCULOSKELETAL: Muscle atrophy noted to bilateral lower extremities; however, his muscle tone has increased since last appointment. Patient walks with a stable gait. Does not use an assistive device. NEUROLOGICAL: Radicular sensory is intact. Negative polyneuropathy. IMPRESSION: Lumbar degenerative disc, lumbar spondylosis, chronic lower back pain. PLAN: We will get him a refill of diclofenac 75 mg b.i.d. and Robaxin 500 mg b. i.d. Overall, the patient is doing great and he has pride in his own self care. I did recommend to continue with his vitamins, his exercises, but to consider taking a Boost supplement daily. He will be seen in three months' time, unless otherwise indicated. Patient agrees with the plan.[facility] Evaluation noteNo assessment information availableWilson Health Work Phone: History and physical note Author Jhon Medina [facility] April 18, 2023 1:56pm Note Date/Time April 18, 2023 1:56p [facility] ENTER [address] [place] [address] Gastroenterology H&P Signed Patient: Kalani Asencio MR#: [id number] : 1970 Acct:[id number] Age/Sex: 53 / M Adm Date: 3 Loc: Room: Type: [facility] Attending Dr: Jhon Medina MD Copies to: NON STAFF Jhon Medina MD~ Date of Service: 04/18/2023 HISTORY & PHYSICAL: Patient's history with special attention to the cardiovascular, pulmonary systems and the current problem was reviewed with the patient immediately prior to the procedure. Present medications and doses reviewed in the EMR. Allergies and pertinent laboratory tests were also reviewedat this time in the EMR. The physical examination, as below, was then performed. Indication, assessment and HPI: 53-year-old man here for colonoscopy for evaluation of diarrhea and unintentional weight loss Family history of GI malignancy? No PHYSICAL EXAMINATION Mouth and Pharynx : Moist mucus membranes, normal dentition Cardiac: Regular rate, regular rhythm Pulmonary: Clear to auscultation bilaterally, no wheezing Neurological: Alert and oriented x3, no focal deficits noted Abdomen: Abdomen soft, non-tender REVIEW OF SYSTEMS Constitutional: Denies malaise, fevers Cardiovascular: Denies chest pain, palpitations Respiratory: Denies shortness of breath, wheezing Gastrointestinal: Per HPI Genitourinary: Denies dysuria, polyuria Musculoskeletal: Denies joint swelling, joint stiffness Neurological: Denies numbness, tingling Integumentary: Denies rashes, skin lesions Endocrine: Denies fatigue, weight loss Written informed consent obtained from the patient. Risks (including but not limited to perforation, infection, bloating, bleeding, need for emergent surgeryand loss of life), benefits and alternatives explained and questions answered. The patient verbalized understanding. Based on history patient is an appropriate candidate for the procedure. Jhon Medina M.D. Documented By: Jhon Medina MD 04/18/23 1354 Signed By: <Electronically signed by Jhon Medina MD> 04/18/23 1356 [facility] Work Phone: [facility] Narrative - Reported* Type Description Date Medical History Asthma Medical History Depression Medical History Seasonal Allergies Medical History seizure disorder Surgical History Back surgery 2009 Surgical History bilat knee surgies 2008 [facility] Other [facility] Narrative - Reported* Type Description Date Medical History Asthma Medical History Depression Medical History Seasonal Allergies Medical History seizure disorder Medical History anxiety Surgical History Back surgery 2009 Surgical History bilat knee surgies 2008 Hospitalization History see above [facility] Other Hospital Discharge instructions Additional Instructions DISCHARGE INSTRUCTIONS FOR COLONOSCOPY WHAT TO EXPECT: - You may feel full, gassy or cramping after your procedure. In some cases, this may be from a few hours to a day. Walking may help relieve the discomfort. - If you have polyp(s) removed you may note some minor bloody discharge after your first bowel movements. - You should begin to recover from anesthesia within 1 hour of the procedure, however may feel groggy for the next 24 hours. DO's AND DON'Ts: - Call your doctor right away if you have a hard abdomen, severe pain, are passing lots of bright red blood or clots. - Call your doctor if you develop any rashes, hives or difficulty breathing. - Let your doctor know if you have not had a bowel movement by 3 days after your procedure. - If you take 81 mg aspirin for your heart it is safe to resume this medication. - If you take other blood thinner medications your doctor will instruct you when these can safely be resumed. - Do NOT drive for 24 hours. - Do NOT operate machinery such as power tools, [employer] mowers, snow blowers, sewing machines, etc. for 24 hours. - Avoid alcoholic beverages and drugs for allergies, nerves, or sleep. - Do NOT stay alone. Do NOT leave your child unattended. - Do NOT make important personal or business decisions or sign any legal documents. - Eat solid foods and drink liquids in smaller amounts than usual until normal appetite returns. If you should experience an upset stomach, liquids high in sugar content (soda, Chevy-Aid, non-acid juices) are recommended. - You can resume normal activities tomorrow. FOLLOW UP & RECOMMENDATIONS: -Repeat colonoscopy in 10 years -Follow up pathology -Follow up in the office as scheduled -Follow up with PCP. -Office number [phone]. [facility] Work Phone: Reason for visit NarrativePATIENT IS HERE FOR DIARRHEA AND PANCREATIC INSUFFICIENCY AT THE REQUEST OF CARMEN PRATT. RECENT TESTING IN REFERRAL [facility] [employer] Other Summary Purpose Family History No Family History Records Found Relationship Condition Age at Onset Recorded Date/T ginny Not Specified Diabetes mellitus Unknown Hypertension Unknown Osteoarthritis Unknown Rheumatoid arthritis Unknown Cerebrovascular accident (CVA) Unknown family member Heart disease Unknown Disorder of thyroid Unknown grandparent Malignant neoplasm of breast Unknown Advance Directives No Advanced Directives Records Found Advance Directive Response Recorded Date/ Time Advance Directives No March 05 9:18am Advance Directive Response Recorded Date/ Time Advance Directives No March 05 8:18am Hospital Course Note [facility] SURGERY Clinical Discharge Summary PERSON INFORMATION Name KALANI ASENCIO Age 50 Years 1970 Sex MALE Language Maltese PCP Marcia Rodriguez DO Marital Status Med Service Pain Management Surgery Acct# Arrival 03/30/2020 08:43:00 Visit Reason Low back pain Acuity LOS 006 00:00 Address: [address] [place] [address] Comment: PROVIDER INFORMATION VITALS INFORMATION Vital Sign Triage Latest Temp Oral Temp Temporal Temp Intravascular Temp Axillary Temp Rectal 02 Sat 99 % 97 % Respiratory Rate Peripheral Pulse Rate Apical Heart Rate Blood Pressure / 89 mmHg / 77 mmHg Comment: MEDICAL INFORMATION Allergy Info: No Known Medication Allergies Prescriptions Given: albuterol Inhalation as needed shortness of breath or wheezing. budesonide- formoterol (Symbicort) Inhalation. calcium carbonate (Os-Dez 500 (1250 mg calcium carbonate) oral tablet) 1 tab(s) Oral 2 times a day. Refills: 11. DULoxetine (DULoxetine 30 mg oral delayed (more content not included)... Note Patient: KALANI ASENCIO MR N: [id number] Age: 50 years Sex: MALE : 1970 Associated Diagnoses: None Author: Nando Saeed MD Postoperative Information Post Operative Note: Operative Day. Anesthetic utilized: Monitored anesthesia care. Health Status Allergies: Allergic Reactions (All) No Known Medication Allergies Problem list (past medical history): All Problems Depression / SNOMED CT 262341419 / Confirmed Asthma / SNOMED CT 211877058 / Confirmed Chronic maxillary sinusitis / SNOMED CT 09238152 / Confirmed Epileptic seizures / SNOMED CT 614679877 / Confirmed Lumbago / SNOMED CT 245202192 / Confirmed Lumbar spondylosis / SNOMED CT 747735031 / Confirmed Physical Examination VS/Measurements Vital Signs (last 24 hrs) Last Charted Heart Rate Peripheral 71 bpm (MAR 30 09:09) Resp Rate 16 br/min (MAR 30 09:09) SBP 137 mmHg (MAR 30 09:53) DBP 93 mmHg (MAR 30 09:53) SpO2 98 % (MAR 30 09:50) Weight 70.000 kg (MAR 30 09:09) Height 185.42 cm (MAR 30 09:09) Rev (more content not included)... Procedure Findings Note Patient: KALANI ASENCIO MR N: [id number] Age: 50 years Sex: MALE : 1970 Associated Diagnoses: None Author: Nando Saeed MD Postoperative Information Post Operative Note: Operative Day. Anesthetic utilized: Monitored anesthesia care. Health Status Allergies: Allergic Reactions (All) No Known Medication Allergies Problem list (past medical history): All Problems Depression / SNOMED CT 780635884 / Confirmed Asthma / SNOMED CT 753395961 / Confirmed Chronic maxillary sinusitis / SNOMED CT 74474689 / Confirmed Epileptic seizures / SNOMED CT 438097118 / Confirmed Lumbago / SNOMED CT 644881570 / Confirmed Lumbar spondylosis / SNOMED CT 668238354 / Confirmed Physical Examination VS/Measurements Vital Signs (last 24 hrs) Last Charted Heart Rate Peripheral 71 bpm (MAR 30 09:09) Resp Rate 16 br/min (MAR 30 09:09) SBP 137 mmHg (MAR 30 09:53) DBP 93 mmHg (MAR 30 09:53) SpO2 98 % (MAR 30 09:50) Weight 70.000 kg (MAR 30 09:09) Height 185.42 cm (MAR 30 09:09) Rev (more content not included)... Chief Complaint and Reason for Visit Chief Complaint Diarrhea, Weight Los s Chief Complaint M54.2 Reason for Referral Reason evaluate and treat f or cervical pain Diagnosis 1 Cervical pain (neck) (M54.2) Referral Organization [facility] urosurgery Referring Provider First Name Jemal Referring Provider Last Name Ho Referring Provider Specialty Neurologica l Surgery Referred Organization [facility] Referred Provider Tori Sanchez Referred Address [address], [place],[address] Referred Provider Specialty Pain Medicin e Referral Priority Routine Additional Source Comments (unrecognized sect ion and content) No Status Records FoundNo Status Records FoundNo Status Records FoundNo Status Records FoundNo Status Records Found INFORMATION SOURCE (unrecogn ized section and content) DATE CREATED AUTHOR 04/30/2020 [facility] DATE CREATED AUTHOR AUTHOR'S ORGANIZ ATION 08/07/2022 [facility] DATE CREATED AUTHOR AUTHOR'S ORGANIZ ATION 03/22/2023 [facility] DATE CREATED AUTHOR AUTHOR'S ORGANIZ ATION 09/05/2023 [facility] DATE CREATED AUTHOR AUTHOR'S ORGANIZ ATION 10/11/2023 [facility] EPIC Care Teams (unrecognized sec tion and content) Team Status: Active Member Role Status Dates NON STAFF Primary Care Provider Active Team Status: Inactive Member Role Status Dates NON STAFF Primary Care Provider Active Jhon Medina MD Attending Provider Active Team Status: Inactive Member Role Status Dates NON STAFF Primary Care Provider Active Jemal Teague MD Attending Provider Active REASON FOR VISIT (unrecogniz ed section and content) FOLLOW UP TO COLONOSCOPYRef by Apoorva Molina for DDD, cervical; surgical opinion; images in PACS Goals (unrecognized section and content) Goals may be documented in a n alternate section FOR RECORDS PERTAINING TO PATIENTS WHO ARE OR HAVE BEEN ENROLLED IN A CHEMICAL DEPENDENCY/SUBSTANCEABUSE PROGRAM, SOME INFORMATION MAY BE OMITTED. This clinical summary was aggregated from multiple sources. Caution should be exercised in using it in the provision of clinical care. This summary normalizes information from multiple sources, and as a consequence, information in this document may materially change the coding, format and clinical context of patient data. In addition, data may be omitted in some cases. CLINICAL DECISIONS SHOULD BE BASED ON THE PRIMARY CLINICAL RECORDS. [employer] provides no warranty or guarantee of the accuracy or completeness of information in this document.
--- NOTE | 2023-11-04 12:32 | XR_ITS ---
The [address] [address] Patient Name: KALANI UGARTE MRN: [id number] date: 1970 Sex: M Assigned Patient Location: ER Current Patient Location: ER Accession/Order Number: [id number] Exam Date: 11/04/2023 12:28 Report Date: 11/04/2023 12:50 At the request of: KATHARINE JONES Procedure: XR chest 1V EXAMINATION: XR chest 1V HISTORY: SOB, Covid positive COMPARISON: 10/21/2019 TECHNIQUE: AP portable erect FINDINGS: LUNGS: No significant pulmonary parenchymal abnormalities. VASCULATURE: No increased pulmonary vasculature. PLEURA: No pneumothorax. Biapical opacification likely chronic scarring, stable. Blunting of the right lateral costophrenic angle CARDIAC: No cardiomegaly or cardiac silhouette abnormality. MEDIASTINUM: No visible mass or adenopathy. BONES: No fracture or visible bone lesion. OTHER: Negative. XR/XR chest 1V IMPRESSION: Suspected tiny right pleural effusion Electronically authenticated by: JARETT GARCÍA Date: 11/04/2023 12:50
--- NOTE | 2023-11-04 12:38 | ED_ITS ---
HPI - SOB/Dyspnea General Chief Complaint: Shortness of Breath/Dyspnea Stated Complaint: SHORTNESS OF BREATH Time Seen by Provider: 11/04/23 12:16 Source: patient Mode of arrival: walk-in Limitations: no limitations History of Present Illness HPI Narrative: 53-year-old male presents for cough and feeling short of breath. He's been sick for two days. He took a home Covid test two days ago and it was positive. No vomiting or diarrhea. His mother accompanies him and gives some of the history. They wanted the patient to get Paxlovid. Related Data Home Medications Medication Instructions Recorded Confirmed albuterol 90 mcg/actuation aerosol 90 mcg inhalation .q6 PRN wheezing 05/16/23 07/30/23 inhaler diclofenac sodium 75 mg 75 mg PO BID 05/16/23 07/30/23 tablet,delayed release levetiracetam 500 mg tablet 500 mg PO DAILY 05/16/23 07/30/23 methocarbamol 500 mg tablet 500 mg PO BID 05/16/23 07/30/23 mirtazapine 15 mg tablet (Remeron) 15 mg PO DAILY 05/16/23 07/30/23 primidone 50 mg tablet 50 mg PO DAILY 05/16/23 07/30/23 zonisamide 100 mg capsule 200 mg PO BEDTIME 05/16/23 07/30/23 albuterol sulfate 90 mcg/actuation 2 inh inhalation Q6H PRN shortness 06/13/23 07/30/23 aerosol inhaler of breath or wheezing biotin 10,000 mcg capsule 10,000 mcg PO DAILY 06/13/23 07/30/23 calcium carbonate 600 mg-vitamin 1 tab PO DAILY 06/13/23 07/30/23 D3 20 mcg (800 unit) tablet bqwigi-pnfjoqbc-ihgibda 1 cap PO TID 06/13/23 07/30/23 24,000-76,000-120,000 unit capsule,delayed rel (Creon) magnesium oxide 400 mg PO DAILY 06/13/23 07/30/23 melatonin 3 mg capsule 3 mg PO DAILY 06/13/23 07/30/23 montelukast 10 mg tablet 10 mg PO DAILY 06/13/23 07/30/23 pantoprazole 40 mg tablet,delayed 40 mg PO DAILY 06/13/23 07/30/23 release sertraline 50 mg tablet 50 mg PO DAILY 06/13/23 07/30/23 Previous Rx's Medication Instructions Recorded tizanidine 2 mg capsule (Zanaflex) 2 mg PO Q8H PRN pain, muscle 09/11/23 spasms #14 caps nirmatrelvir 300 mg (150 mg See Rx Instructions PO .COMPLEX 11/04/23 x2)-ritonavir 100 mg tablet,dose #30 ea pack (Paxlovid) Allergies Allergy/AdvReac Type Severity Reaction Status Date / Time bee venom protein (honey bee) Allergy Mild Verified 11/04/23 12:14 latex Allergy Verified 11/04/23 12:14 Review of Systems ROS Narrative A ten point review of systems is negative except as noted above. [facility] Medical History (Updated 11/04/23 @ 12:54 by Sanya Quintana MD) Seizures ?R56.9 - Unspecified convulsions (ICD-10) Sleep apnea ?G47.30 - Sleep apnea, unspecified (ICD-10) Asthma ?J45.909 - Unspecified asthma, uncomplicated (ICD-10) Social History Smoking status: Former smoker Exam Narrative Exam Narrative: Nurses note and vital signs reviewed and patient is not hypoxic. General: The patient appears well and in no apparent distress. Patient is resting comfortably on cart. Skin: Warm, dry, no pallor noted. There is no rash noted. Head: Normocephalic, atraumatic Eye: Normal conjunctiva, no drainage Ears, Nose, Mouth, and Throat: oral mucosa is moist. Nares patent. Cardiovascular: Regular Rate and Rhythm Respiratory: Patient is in no distress, no accessory muscle use, lungs are clear to auscultation, no wheezing, rales or rhonchi Back: non-tender GI: soft and nontender Musculoskeletal: The patient has no evidence of calf tenderness, no pitting edema, symmetrical pulses noted bilaterally Neurological: awake and alert Psychiatric: Cooperative Constitutional Vital Signs, click to edit/add: Last Vital Signs Temp 98.6 F 11/04/23 12:14 Pulse 62 11/04/23 12:14 Resp 18 11/04/23 12:14 BP 128/78 11/04/23 12:14 Pulse Ox 99 11/04/23 12:14 O2 Del Method Room Air 11/04/23 12:14 Course Vital Signs Vital signs: Vital Signs Temperature 98.6 F 11/04/23 12:14 Pulse Rate 62 11/04/23 12:14 Respiratory Rate 18 11/04/23 12:14 Blood Pressure 128/78 11/04/23 12:14 Pulse Oximetry 99 11/04/23 12:14 Oxygen Delivery Method Room Air 11/04/23 12:14 Temperature 98.6 F 11/04/23 12:14 Pulse Rate 62 11/04/23 12:14 Respiratory Rate 18 11/04/23 12:14 Blood Pressure 128/78 11/04/23 12:14 Pulse Oximetry 99 11/04/23 12:14 Oxygen Delivery Method Room Air 11/04/23 12:14 MDM - SOB/Dyspnea MDM Narrative Medical decision making narrative: chest x-ray shows no acute findings and he is prescribed Paxil that. Findings are discussed with the patient and his mother. Differential Diagnosis Differential diagnosis: Likely other (Covid, pneumonia) Imaging Data Chest x-ray: Radiologist's impression: ITS Impressions Chest X-Ray 11/04/23 12:32 IMPRESSION: Suspected tiny right pleural effusion Electronically authenticated by: JARETT GARCÍA Date: 11/04/2023 12:50 Discharge Plan Discharge Chief Complaint: Shortness of Breath/Dyspnea Clinical Impression: COVID-19 Patient Disposition: Home, Self-Care Time of Disposition Decision: 12:54 Condition: Good Mode of Transportation: Private Vehicle Prescriptions / Home Meds: New Paxlovid 300 mg (150 mg x 2)-100 mg tablets,dose pack See Rx Instructions .ROUTE .COMPLEX Qty: 30 0RF Rx Instructions: take TWO 150 mg tablets of nirmatrelvir with ONE 100 mg tablet of ritonavir twice daily for 5 days No Action albuterol 90 mcg/actuation aerosol 90 mcg inhalation .q6 PRN (Reason: wheezing) methocarbamol 500 mg tablet 500 mg PO BID diclofenac sodium 75 mg tablet,delayed release (DR/EC) 75 mg PO BID levetiracetam 500 mg tablet 500 mg PO DAILY primidone 50 mg tablet 50 mg PO DAILY mirtazapine [Remeron] 15 mg tablet 15 mg PO DAILY zonisamide 100 mg capsule 200 mg PO BEDTIME albuterol sulfate 90 mcg/actuation HFA aerosol inhaler 2 inh inhalation Q6H PRN (Reason: shortness of breath or wheezing) magnesium oxide 400 mg magnesium capsule 400 mg PO DAILY sertraline 50 mg tablet 50 mg PO DAILY melatonin 3 mg capsule 3 mg PO DAILY montelukast 10 mg tablet 10 mg PO DAILY biotin 10,000 mcg capsule 10,000 mcg PO DAILY pantoprazole 40 mg tablet,delayed release (DR/EC) 40 mg PO DAILY Creon 24,000-76,000 -120,000 unit capsule,delayed release(DR/EC) 1 cap PO TID Rx Instructions: administer with meals and/or snacks calcium carbonate-vitamin D3 600 mg-20 mcg (800 unit) tablet 1 tab PO DAILY tizanidine [Zanaflex] 2 mg capsule 2 mg PO Q8H PRN (Reason: pain, muscle spasms) Qty: 14 0RF Instructions: COVID-19 (Coronavirus Disease 2019) (ED), COVID-19: Slow the Coronavirus Spread (ED), Face Coverings (Masks) and COVID-19 (ED), How to Recover from COVID-19 at Home (ED) Stand Alone Forms: Portal Instructions Referrals: Carmen Pratt NP [Primary Care Provider] - 1 week
[2023-11-04 13:06] VITALS: BP 112/78; PULSE 64; RESP 20; O2SAT 96
== END 2023-11-04 13:08 | disposition home or self-care (01) ==
PROVIDERS: Emergency Provider Emergency Medicine; PCP Nurse Practitioner
DX: U07.1 COVID-19 (principal); J45.909 Unspecified asthma, uncomplicated; G47.30 Sleep apnea, unspecified; R56.9 Unspecified convulsions; Z79.899 Other long term (current) drug therapy; Z87.891 Personal history of nicotine dependence
CPT/HCPCS: 71045; 99283

== ENCOUNTER 2023-11-13 13:16 | Outpatient (OUT) | payer MEDICARE, MEDICAID, SELFPAY ==
--- NOTE | 2023-11-13 13:17 | P.CN_ITS ---
Consult Note: HPI Data of Consult Patient: known to practice within the last 3 years Requesting Physician: Renetta Blood NP Primary Care Provider: Carmen Pratt NP Consult Narrative Reason for consult: establish for neck pain Narrative: Nabeel Asencio a pleasant 53 year old male presents for evaluation and management of chronic neck pain from Dr Teague. Patient also diagnosed with left CTS by Dr Teague but is not following with anyone for this. Pain today 5-6/10, increasing to 10/10 in neck with pain radiating into bilateral arms and hands. Pain worse with all activity, improved with sitting and rest. Patient noticing severe pain wakes him during the night. Currently on zonisamide 100mg HS, sertraline 100mg HS, and diclofenac 75mg HS with mild benefit. MRI of cervical spine consistent with stenosis, DDD, and facet arthropathy. Patient deemed nonsurgical by Dr Teague. cc:: CC: Renetta Blood NP Review of Systems ROS Status of ROS 10 or more systems reviewed and unremark able except as noted in history and below Musculoskeletal Reports: neck pain PFSH PFSH Medical History Seizures ?R56.9 - Unspecified convulsions (ICD-10) Sleep apnea ?G47.30 - Sleep apnea, unspecified (ICD-10) Asthma ?J45.909 - Unspecified asthma, uncomplicated (ICD-10) Social History Smoking status: Former smoker Meds Home Medications and Allergies Home Medications Medication Instructions Recorded Confirmed Type albuterol 90 mcg/actuation aerosol 90 mcg inhalation .q6 PRN wheezing 05/16/23 07/30/23 History inhaler diclofenac sodium 75 mg 75 mg PO BID 05/16/23 07/30/23 History tablet,delayed release levetiracetam 500 mg tablet 500 mg PO DAILY 05/16/23 07/30/23 History methocarbamol 500 mg tablet 500 mg PO BID 05/16/23 07/30/23 History mirtazapine 15 mg tablet (Remeron) 15 mg PO DAILY 05/16/23 07/30/23 History primidone 50 mg tablet 50 mg PO DAILY 05/16/23 07/30/23 History zonisamide 100 mg capsule 200 mg PO BEDTIME 05/16/23 07/30/23 History albuterol sulfate 90 mcg/actuation 2 inh inhalation Q6H PRN shortness 06/13/23 07/30/23 History aerosol inhaler of breath or wheezing biotin 10,000 mcg capsule 10,000 mcg PO DAILY 06/13/23 07/30/23 History calcium carbonate 600 mg-vitamin 1 tab PO DAILY 06/13/23 07/30/23 History D3 20 mcg (800 unit) tablet smizes-jfjtynjl-lccictc 1 cap PO TID 06/13/23 07/30/23 History 24,000-76,000-120,000 unit capsule,delayed rel (Creon) magnesium oxide 400 mg PO DAILY 06/13/23 07/30/23 History melatonin 3 mg capsule 3 mg PO DAILY 06/13/23 07/30/23 History montelukast 10 mg tablet 10 mg PO DAILY 06/13/23 07/30/23 History pantoprazole 40 mg tablet,delayed 40 mg PO DAILY 06/13/23 07/30/23 History release sertraline 50 mg tablet 50 mg PO DAILY 06/13/23 07/30/23 History tizanidine 2 mg capsule (Zanaflex) 2 mg PO Q8H PRN pain, muscle 09/11/23 Rx spasms #14 caps nirmatrelvir 300 mg (150 mg See Rx Instructions PO .COMPLEX 11/04/23 Rx x2)-ritonavir 100 mg tablet,dose #30 ea pack (Paxlovid) Allergies Allergy/AdvReac Type Severity Reaction Status Date / Time bee venom protein (honey bee) Allergy Mild Verified 11/04/23 12:14 latex Allergy Verified 11/04/23 12:14 Exam Constitutional Documenting provider has reviewed patient's vital signs: yes Common normals: no apparent distress, oriented x3, healthy appearing, alert and well nourished General appearance: cooperative [facility] Common normals: normocephalic, hearing grossly normal bilaterally and moist oral mucous membranes Head and scalp: normocephalic Eye Common normals: PERRL Pupil: PERRL Neck & C-Spine General: normal visual inspection Cervical spine: pain with cervical ROM Other: positive Spurling bilaterally strength 5/5 in BUE sensation intact Chest Common normals: inspection of chest normal Respiratory Common normals: normal respiratory effort, no retractions and no use of accessory muscles Back & Pelvis Lumbar spine/lower back: lumbar ROM normal Sacroiliac joints: SI joints normal Extremity Common normals: normal to inspection and full ROM Other: left sided positive phalens, tinnels, finklesteins test Neuro Common normals: oriented x3, CN's II-XII intact bilaterally, moves all extremities, no focal motor deficits, no sensory deficits noted, deep tendon reflexes 2+ bilaterally and gait normal Sensorium/orientation: alert Motor exam: strength 5/5 throughout and no movement abnormalities noted Psych Common normals: mental status grossly normal, thought process normal, cooperative, affect normal, speech normal and activity/motor behavior normal Speech: normal speech Thought process: normal thought process Results Additional Findings Additional findings: I have checked an [place] report on this patient today and there are no aberrancies noted in the prescribing history.?? A drug screen was completed and reviewed within the last year, and if there has not been a drug screen completed we ordered one today to monitor higher risk, state monitored pain medication use. As part of providing excellent, safe, comprehensive care, the following was completed at our patient's visit: 1. A medication reconciliation and review to ensure accurate knowledge of current/active medications, including asking our patients to inform us about any [id number] medications or herbal remedies/nutritional supplements/alternative remedies. 2. A review to specifically ensure our patients have had annual screening for: elevated body mass index (BMI), tobacco use, screening for depression, and screening for unhealthy alcohol use. When screening is concerning, patients are provided with education and the specific recommendation to discuss the concerning health issue and treatment options with their primary care provider. Assessment and Plan Assessment and Plan (1) Cervical spinal stenosis: (2) Cervical radiculopathy: (3) Carpal tunnel syndrome of left wrist: Plan C6-7 BENITO under fluoroscopy with Dr Sanchez Referral to Dr Contreras for Left CTS continue current medications f/u 2 weeks after injection
== END 2023-11-13 13:17 | disposition home or self-care (01) ==
LOC: PM 13:16
PROVIDERS: PCP Nurse Practitioner; Visit Provider Nurse Practitioner
DX: M48.02 Spinal stenosis, cervical region (principal); M54.12 Radiculopathy, cervical region; G56.02 Carpal tunnel syndrome, left upper limb
CPT/HCPCS: G0463

== ENCOUNTER 2023-11-19 08:40 | Day surgery (SDC) | payer MEDICARE, MEDICAID, SELFPAY ==
--- OUTSIDE RECORDS SUMMARY | 2023-11-19 08:46 | XMS_ITS | CCD ---
Author Name Unknown Address [address] [place] [address] Organization [facility] Care Team Providers Care Manager Business Process Name Role Phone CARMEN PRATT J Referring UnavailTarsha Mccrary Attending Unavailable AICHHOLZ, FILLER BLOCK INSERTER REMOVER CARMEN Consulting Unavailable AICHHOLZ, FILLER BLOCK INSERTER REMOVER CARMEN Primary Care Unavailable AICHHOLZ, FILLER BLOCK INSERTER REMOVER CARMEN Admitting Unavailable AICHHOLZ, FILLER BLOCK INSERTER REMOVER CARMEN Attending Unavailable GALO ., DR HANY Holder Admitting Unavailable GALO ., DR HANY Holder Attending Unavailable AICHHOLZ, FILLER BLOCK INSERTER REMOVER CARMEN Primary Care Unavailable JEFFERSON ., STACY Consulting Unavailable JEFFERSON ., STACY Consulting Unavailable GALO ., DR HANY Holder Admitting Unavailable GALO ., DR HANY Holder Attending Unavailable AICHHOLZ, FILLER BLOCK INSERTER REMOVER CARMEN Primary Care Unavailable JEFFERSON ., STACY Admitting Unavailable JEFFERSON ., STACY Attending Unavailable AICHHOLZ, FILLER BLOCK INSERTER REMOVER CARMEN Primary Care Unavailable WEST, DR JARETT Long Consulting Unavailable JEFFERSON ., STACY Consulting Unavailable AICHHOLZ, FILLER BLOCK INSERTER REMOVER CARMEN Primary Care Unavailable AICHHOLZ, FILLER BLOCK INSERTER REMOVER CARMEN Admitting Unavailable AICHHOLZ, FILLER BLOCK INSERTER REMOVER CARMEN Attending Unavailable AICHHOLZ, FILLER BLOCK INSERTER REMOVER CARMEN Consulting Unavailable ALEBRTO REDMAN Consulting Unavailable JEFFERSON ., STACY Consulting Unavailable GALO ., DR HANY Holder Admitting Unavailable GALO ., DR HANY Holder Attending Unavailable AICHHOLZ, FILLER BLOCK INSERTER REMOVER CARMEN Primary Care Unavailable JEFFERSON ., STACY Consulting Unavailable GALO .DR HANY Admitting Unavailable GALO ., DR HANY Holder Attending Unavailable AICHHOLZ, FILLER BLOCK INSERTER REMOVER CARMEN Primary Care Unavailable AICHHOLZ, FILLER BLOCK INSERTER REMOVER CARMEN Consulting Unavailable AICHHOLZ, FILLER BLOCK INSERTER REMOVER CARMEN Primary Care Unavailable AICHHOLZ, FILLER BLOCK INSERTER REMOVER CARMEN Admitting Unavailable AICHHOLZ, FILLER BLOCK INSERTER REMOVER CARMEN Attending Unavailable AICHHOLZ, FILLER BLOCK INSERTER REMOVER CARMEN Admitting Unavailable AICHHOLZ, FILLER BLOCK INSERTER REMOVER CARMEN Primary Care Unavailable AICHHOLZ, FILLER BLOCK INSERTER REMOVER CARMEN Attending Unavailable AICHHOLZ, FILLER BLOCK INSERTER REMOVER CARMEN Consulting Unavailable AICHHOLZ, FILLER BLOCK INSERTER REMOVER CARMEN Consulting Unavailable AICHHOLZ, FILLER BLOCK INSERTER REMOVER CARMEN Primary Care Unavailable AICHHOLZ, FILLER BLOCK INSERTER REMOVER CARMEN Attending Unavailable AICHHOLZ, FILLER BLOCK INSERTER REMOVER CARMEN Admitting Unavailable LOWE, DAVID Admitting Unavailable LOWE, DAVID Attending Unavailable AICHHOLZ, FILLER BLOCK INSERTER REMOVER CARMEN Primary Care Unavailable DR NOEMÍ MORRISON Consulting Unavailable LOWE, DAVID Consulting Unavailable AICHHOLZ, FILLER BLOCK INSERTER REMOVER CARMEN Primary Care Unavailable AICHHOLZ, FILLER BLOCK INSERTER REMOVER CARMEN Attending Unavailable AICHHOLZ, FILLER BLOCK INSERTER REMOVER CARMEN Consulting Unavailable AICHHOLZ, FILLER BLOCK INSERTER REMOVER CARMEN Admitting Unavailable AICHHOLZ, FILLER BLOCK INSERTER REMOVER CARMEN Consulting Unavailable AICHHOLZ, FILLER BLOCK INSERTER REMOVER CARMEN Primary Care Unavailable AICHHOLZ, FILLER BLOCK INSERTER REMOVER CARMEN Attending Unavailable AICHHOLZ, FILLER BLOCK INSERTER REMOVER CARMEN Admitting Unavailable JARETT JARVIS Consulting Unavailable JESSE, APOORVA Admitting Unavailable JESSE, APOORVA Attending Unavailable AICHHOLZ, FILLER BLOCK INSERTER REMOVER CARMEN Primary Care Unavailable JESSE, APOORVA Consulting Unavailable LAKSHMIPATHY ., NARENDRANATH Admitting Letty vailable LAKSHMIPATHY ., NARENDRANATH Attending Letty vailable AICHHOLZ, FILLER BLOCK INSERTER REMOVER CARMEN Primary Care Unavailable COURTNEY STERLING Consulting Unavailable DR JARETT GARCÍA V Consulting Unavailable AICHHOLZ, FILLER BLOCK INSERTER REMOVER CARMEN Primary Care Unavailable AICHHOLZ, FILLER BLOCK INSERTER REMOVER CARMEN Admitting Unavailable AICHHOLZ, FILLER BLOCK INSERTER REMOVER CARMEN Attending Unavailable AICHHOLZ, FILLER BLOCK INSERTER REMOVER CARMEN Consulting Unavailable AICHHOLZ, FILLER BLOCK INSERTER REMOVER CARMEN Consulting Unavailable AICHHOLZ, FILLER BLOCK INSERTER REMOVER CARMEN Admitting Unavailable AICHHOLZ, FILLER BLOCK INSERTER REMOVER CARMEN Attending Unavailable AICHHOLZ, FILLER BLOCK INSERTER REMOVER CARMEN Primary Care Unavailable ILYA, NERI Admitting Unavailable ILYA, NERI Attending Unavailable AICHHOLZ, FILLER BLOCK INSERTER REMOVER CARMEN Primary Care Unavailable NERI CARABALLO Consulting Unavailable DANIELLE KWONG Consulting Unavailable AICHHOLZ, FILLER BLOCK INSERTER REMOVER CARMEN Consulting Unavailable AICHHOLZ, FILLER BLOCK INSERTER REMOVER CARMEN Primary Care Unavailable AICHHOLZ, FILLER BLOCK INSERTER REMOVER CARMEN Admitting Unavailable AICHHOLZ, FILLER BLOCK INSERTER REMOVER CARMEN Attending Unavailable DR NOEMÍ MORRISON Consulting Unavailable LI .STACY Consulting Unavailable GALO ., DR HANY Holder Admitting Unavailable GALO ., DR HANY Holder Attending Unavailable AICHHOLZ, FILLER BLOCK INSERTER REMOVER CARMEN Primary Care Unavailable GALO ., DR HANY Holder Consulting Unavailable GALO ., DR HANY Holder Admitting Unavailable GALO ., DR HANY Holder Attending Unavailable AICHHOLZ, FILLER BLOCK INSERTER REMOVER CARMEN Primary Care Unavailable KARINA ., ELIAS Admitting Unavailable KARINA ., ELIAS Attending Unavailable AICHHOLZ, FILLER BLOCK INSERTER REMOVER CARMEN Primary Care Unavailable KARINA ., ELIAS Consulting Unavailable CATHY DE PAZ Consulting Unavaila ble AICHHOLZ, FILLER BLOCK INSERTER REMOVER CARMEN Primary Care Unavailable WEST, DR JARETT Long Consulting Unavailable AICHHOLZ, FILLER BLOCK INSERTER REMOVER CARMEN Admitting Unavailable AICHHOLZ, FILLER BLOCK INSERTER REMOVER CARMEN Attending Unavailable AICHHOLZ, FILLER BLOCK INSERTER REMOVER CARMEN Consulting Unavailable HALSAPNA ., COURTNEY Consulting Unavailable LAKSHMIPATHY ., NARENDRANATH Admitting Letty vailable LAKSHMIPATHY ., NARENDRANATH Attending Letty vailable AICHHOLZ, FILLER BLOCK INSERTER REMOVER CARMEN Primary Care Unavailable Asaad, Imad Unavailable NON STAFF Primary Care Provider UnavailMD Jhno Campbell Attending Provider [phone] NON STAFF Primary Care Provider UnavailMD Jemal Conteh Attending Provider Jemal Teague Unavailable Asaad, Imad Admitting Unavailable Asaad, Imad Attending Unavailable NON STAFF Primary Care Unavailable NON STAFF Primary Care Unavailable Jemal Teague Admitting Unavailable Jemal Teague Attending Unavailable AICHHOLZ, CARMEN Attending Unavailable Allergies Allergy Classification Reported Allergen(s) Allergy Type Date of Onset Reaction(s) Facility (4 sources) Latex Drug allergy (disorder) 6 Rash [facility] Repository (3 sources) venom-honey bee; Translations: [venom-honey bee] Allergy to substance 3 Anaphylaxis [facility] (1 source) Latex Drug allergy Unknown [employer] Other (1 source) Bee Sting Drug allergy Unknown [facility] [employer] Other (1 source) Latex Drug allergy (disorder) 3 [facility] Repository Medications Current Medications Medication Drug Class(es) Dates Sig (Normalized) Sig (Original) Albuterol (5 sources) beta2-Adrenergic Agonist Start: 03-11-2019 Albuterol Sulfate Active 2 PUFF INHALATION As Directed March 10, 2019 11:00pm Start: 03-11-2019 Albuterol Sulf ate Active 2 PUFF INHALATION As Directed March 11, 2019 12:00am Albuterol Active amylase 142893 unt / lipase 03502 unt / protease 32930 unt delayed release oral capsule (5 sources) Start: 04-18-2023 take 92371-11539 capsules by mouth three times daily Gatlku-Unohxblt-Sqkznsu (Creon) 24,000-76,000 -120,000 unit capsule,delayed release(DR/EC) Active 1 CAP PO Three times daily April 17, 2023 11:00pm biotin 10 mg oral capsule (2 sources) Start: 04-18-2023 take 76200 ug by mouth once daily at bedtime Biotin Active 56533 MCG PO Daily at bedtime April 17, [...] April 17, 2023 11:00pm polyethylene glycol 3350 673780 mg / potassium chloride 2970 mg / sodium bicarbonate 6740 mg / sodium chloride 5860 mg / sodium sulfate 26519 mg powder for oral solution (3 sources) [...] 07-30-2022 Episodic Other aftercare (1 source) Other intermediate designer (current) drug therapy; Translations: [OTH DOOR MAKER CURRENT DRUG THERAPY] Onset: 09-13-2022 Episodic Other [...] on 08-27-2023 XR cervical spine w flex/ext [facility] [place] [address] XRay Report Signed Patient: Kalani Asencio MR#: [id number] 6 : 1970 Acct:[id number] Age/Sex: 53 / M ADM Date: 08/27/23 Loc: XD Room: Type: [facility] Attending Dr: Jemal Teague MD Copies to: [...] Hill Jr., Susana08/27/2023 4:23 PM Dictation Location: [place] [address] Transcribed By: [facility] 08/27/231622 Dictated By: Andi Hill Jr, DO 08/27/231621 Signed By: 08/27/231622 [facility] 04-18-2023 L - -------- Specimen: [id number] Received: 04/19/23 Status: ANUM Castillo Num: [id number] Spec Type: Surgical Subm Dr: Jhon Medina MD Tissues: A Colon Biopsy (RANDOM COLON BX) Procedures: HE/2, Gross/Micro L4 -------- Age/ Patient Sex Location Account Attending Physician -------- Kalani Asencio 53/M [id number] Jhon Medina MD -------- SPEC NUM: [id number] RECD: 04/19/23 STATUS: ANUM CASTILLO NUM: [id number] LELE: 04/18/23- [facility] DR: Jhon Medina MD ENTERED: 04/19/23 [facility] DR: LUCY TYPE: Surgical DEPT: [...] microscopic examination confirms the diagnosis. CPT Codes 26317 -------- -------- Specimen: [id number] Received: 04/19/23 Status: ANUM Jonathan Num: [id number] Spec Type: Surgical Subm Dr: Jhon Medina MD Tissues: A Colon Biopsy (RANDOM COLON BX) Procedures: Twin WIN/Yolanda L4 -------- Patient: Kalani Asencio [id number] (Continued) -------- Signed (signature on file) Warren De La O MD 04/22/2355 [facility] AMYLASEon 03-12-2023 Amylase [Catalytic activity/Vol] 42 U/L Normal 25-115 [facility] Comment on above: Performed By: #### T SH, LIPA, CMP, CHILANGO ####[facility] [address] [place] [address]Dr. Rakel Fraga CBC AUTO DIFFon 03-12-2023 BASO # 0.0 103/ul Normal 0.0-0.1 [facility] Comment on above: Performed By: #### U AMIC #### [facility] [address] [address] [address] Rakel Fraga Basophils/100 WBC (Bld) 0.4 % Normal 0.2-2.0 [facility] Comment on above: Performed By: #### U AMIC #### [facility] [address] [place] [address] Dr. Rakel Fraga EO # 0.8 103/ul Critically high 0.0-0.7 [facility] Comment on above: Performed By: #### U AMIC #### [facility] [address] [place] [address] Dr. Rakel Fraga Eosinophils/100 WBC (Bld) 8.8 % Critically high 0.9-7.0 [facility] Comment on above: Performed By: #### U AMIC #### [facility] [address] [place] [address] Dr. Rakel Fraga Erythrocyte distribution width (RBC) [Ratio] 13.0 % Normal 11.0-15.0 [facility] Comment on above: Performed By: #### U AMIC #### [facility] [address] [place] [address] Dr. Rakel Fraga Hematocrit (Bld) [Volume fraction] 44.1 % Normal 42.0-54.0 [facility] Comment on above: Performed By: #### U AMIC #### [facility] [address] [place] [address] Dr. Rakel Fraga Hemoglobin (Bld) [Mass/Vol] 14.2 g/dL Normal 14.0-18.0 [facility] Comment on above: Performed By: #### U AMIC #### [facility] [address] [place] [address] Dr. Rakel Fraga IG # 0.02 10e3/ul Normal 0.00-0.03 [facility] Comment on above: Performed By: #### U AMIC #### [facility] [address] [place] [address] Dr. Rakel Fraga IG % 0.2 % Normal 0.0-0.5 [facility] Comment on above: Performed By: #### U AMIC #### [facility] [address] [place] [address] Dr. Rakel Fraga LYMPH # 1.9 103/ul Normal 1.2-3.8 [facility] Comment on above: Performed By: #### U AMIC #### [facility] [address] [place] [address] Dr. Rakel Fraga Lymphocytes/100 WBC (Bld) 20.1 % Critically low 20.5-60.0 [facility] Comment on above: Performed By: #### U AMIC #### [facility] [address] [place] [address] Dr. Rakel Fraga MANUAL DIFF REQ NO Normal [facility] Comment on above: Performed By: #### U AMIC #### [facility] [address] [place] [address] Dr. Rakel Fraga MCH (RBC) [Entitic mass] 29.8 pg Normal 25.9-34.0 [facility] Comment on above: Performed By: #### U AMIC #### [facility] [address] [place] [address] Dr. Rakel Fraga MCHC (RBC) [Mass/Vol] 32.2 g/dL Normal 29.9-35.2 [facility] Comment on above: Performed By: #### U AMIC #### [facility] [address] [place] [address] Dr. Rakel Fraga MCV (RBC) [Entitic vol] 92.5 fL Normal 80.0-94.0 [facility] Comment on above: Performed By: #### U AMIC #### [facility] [address] [place] [address] Dr. Rakel Fraga MONO # 0.5 103/ul Normal 0.3-0.8 [facility] Comment on above: Performed By: #### U AMIC #### [facility] [address] [place] [address] Dr. Rakel Fraga Monocytes/100 WBC (Bld) 5.0 % Normal 1.7-12.0 [facility] Comment on above: Performed By: #### U AMIC #### [facility] [address] [place] [address] Dr. Rakel Fraga NEUT # 6.0 103/ul Normal 1.4-6.5 [facility] Comment on above: Performed By: #### U AMIC #### [facility] [address] [place] [address] Dr. Rakel Farga Neutrophils/100 WBC (Bld) 65.5 % Normal 43.0-75.0 [facility] Comment on above: Performed By: #### U AMIC #### [facility] [address] [place] [address] Dr. Rakel Fraga Platelet mean volume (Bld) [Entitic vol] 9.4 fL Critically low 9.5-13.5 [facility] Comment on above: Performed By: #### U AMIC #### [facility] [address] [place] [address] Dr. Rakel Fraga PLT 284 103/ul Normal 150-450 [facility] Comment on above: Performed By: #### U AMIC #### [facility] [address] [place] [address] Dr. Rakel Fraga RBC 4.77 106/ul Normal 4.70-6.10 [facility] Comment on above: Performed By: #### U AMIC #### [facility] [address] [place] [address] Dr. Rakel Fraga WBC 9.2 103/ul Normal 4.0-11.0 [facility] Comment on above: Performed By: #### U AMIC #### [facility] [address] [place] [address] Dr. Rakel Fraga LIPASEon 03-12-2023 Lipase [Catalytic activity/Vol] 76.0 U/L Normal 73.0-393.0 [facility] Comment on above: Performed By: #### T SH, LIPA, CMP, CHILANGO ####[facility] [address] [place] [address]Dr. Rakel Fraga PROF 14(COMP METB)on 023 Albumin [Mass/Vol] 3.4 g/dL Normal 3.4-5.0 [facility] Comment on above: Performed By: #### T SH, LIPA, CMP, CHILANGO ####[facility] [address] [place] [address]Dr. Rakel Fraga Albumin/Globulin [Mass ratio] 0.8 {ratio} Normal [facility] Comment on above: Performed By: #### T SH, LIPA, CMP, CHILANGO ####[facility] [address] [place], [place] [address]Dr. Rakel Fraga ALP [Catalytic activity/Vol] 159 U/L Critically high 46-116 [facility] Comment on above: Performed By: #### T SH, LIPA, CMP, CHILANGO ####[facility] [address] [place], [place] [address]Dr. Rakel Fraga ALT [Catalytic activity/Vol] 24 U/L Normal 16-63 [facility] Comment on above: Performed By: #### T SH, LIPA, CMP, CHILANGO ####[facility] [address] [place] [address]Dr. Rakel Fraga Anion gap [Moles/Vol] 12.2 mmol/L Normal [facility] Comment on above: Performed By: #### T SH, LIPA, CMP, CHILANGO ####[facility] [address] [place], [place] [address]Dr. Rakel Fraga AST [Catalytic activity/Vol] 16 U/L Normal 15-37 [facility] Comment on above: Performed By: #### T SH, LIPA, CMP, CHILANGO ####[facility] [address] [place] [address]Dr. Rakel Fraga Bilirubin [Mass/Vol] 0.2 mg/dL Normal 0.2-1.0 [facility] Comment on above: Performed By: #### T SH, LIPA, CMP, CHILANGO ####[facility] [address] [place] [address]Dr. Rakel Fraga Calcium [Mass/Vol] 8.9 mg/dL Normal 8.5-10.1 [facility] Comment on above: Performed By: #### T SH, LIPA, CMP, CHILANGO ####[facility] [address] [place] [address]Dr. Rakel Fraga Chloride [Moles/Vol] 105 mmol/L Normal 98-107 [facility] Comment on above: Performed By: #### T SH, LIPA, CMP, CHILANGO ####[facility] [address] [place], [place] [address]Dr. Rakel Fraga CO2 [Moles/Vol] 28.7 mmol/L Normal 21.0-32.0 [facility] Comment on above: Performed By: #### T SH, LIPA, CMP, CHILANGO ####[facility] [address] [place], [place] [address]Dr. Rakel Fraga Creatinine [Mass/Vol] 1.27 mg/dL Normal 0.70-1.30 [facility] Comment on above: Performed By: #### T SH, LIPA, CMP, CHILANGO ####[facility] [address] [place] [address]Dr. Rakel Fraga EGFR-AF MALTESE >60 Normal >=60 [facility] Comment on above: Performed By: #### T SH, LIPA, CMP, CHILANGO ####[facility] [address] [place] [address]Dr. Rakel Fraga EGFR-NON AF MALTESE 59 mL/min/1.73m2 Critically low >=60 [facility] Comment on above: Performed By: #### T SH, LIPA, CMP, CHILANGO ####[facility] [address] [place] [address]Dr. Rakel Fraga Globulin (S) [Mass/Vol] 4.4 g/dL Normal [facility] Comment on above: Performed By: #### T SH, LIPA, CMP, CHILANGO ####[facility] [address] [place] [address]Dr. Rakel Fraga Glucose [Mass/Vol] 95 mg/dL Normal 74-106 [facility] Comment on above: Performed By: #### T SH, LIPA, CMP, CHILANGO ####[facility] [address] [place] [address]Dr. Rakel Fraga Potassium [Moles/Vol] 3.9 mmol/L Normal 3.5-5.1 [facility] Comment on above: Performed By: #### T SH, LIPA, CMP, CHILANGO ####[facility] [address] [place] [address]Dr. Rakel Fraga Protein [Mass/Vol] 7.8 g/dL Normal 6.4-8.2 [facility] Comment on above: Performed By: #### T SH, LIPA, CMP, CHILANGO ####[facility] [address] [place] [address]Dr. Rakel Fraga Sodium [Moles/Vol] 142 mmol/L Normal 136-145 [facility] Comment on above: Performed By: #### T SH, LIPA, CMP, CHILANGO ####[facility] [address] [place] [address]Dr. Rakel Fraga Urea nitrogen [Mass/Vol] 14.0 mg/dL Normal 7.0-18.0 [facility] Comment on above: Performed By: #### T SH, LIPA, CMP, CHILANGO ####[facility] [address] [place] [address]Dr. Rakel Fraga Urea nitrogen/Creatinine [Mass ratio] 11.0 mg/mg Normal [facility] Comment on above: Performed By: #### T SH, LIPA, CMP, CHILANGO ####[facility] [address] [place] [address]Dr. Rakel Fraga SED RATE [facility] 2022 SED RATE 17 mm/hr Normal <=20 [facility] Comment on above: Performed By: #### U AMIC #### [facility] [address] [address] [address] Rakel Fraga TSHon 03-12-2023 TSH 0.793 uIU/mL Normal 0.358-3.740 [facility] Comment on above: Performed By: #### T SH, LIPA, CMP, CHILANGO ####[facility] [address] [place] [address]Dr. Rakel Fraga UA RANDOM W/MICROSCOPICon BACTERIA NONE SEEN Normal NONE SEEN [facility] Comment on above: Performed By: #### B MP #### [facility] [address] [address] [address] Rakel Fraga Bilirubin Ql (U) Negative Normal NEGATIVE [facility] Comment on above: Performed By: #### B MP #### [facility] [address] [place] [address] Dr. Rakel Fraga CAST NONE SEEN Normal NONE SEEN [facility] Comment on above: Performed By: #### B MP #### [facility] [address] [place] [address] Dr. Rakel Fraga Clarity (U) CLEAR Normal CLEAR [facility] Comment on above: Performed By: #### B MP #### [facility] [address] [place] [address] Dr. Rakel Fraga Color (U) LT. YELLOW Normal YELLOW [facility] Comment on above: Performed By: #### B MP #### [facility] [address] [place] [address] Dr. Rakel Fraga Crystals LM Nom (Urine sed) NONE SEEN Normal NONE SEEN [facility] Comment on above: Performed By: #### B MP #### [facility] [address] [place] [address] Dr. Rakel Fraga Epithelial cells LM Ql (Urine sed) NONE SEEN Normal NONE SEEN /RARE [facility] Comment on above: Performed By: #### B MP #### [facility] [address] [place] [address] Dr. Rakel Fraga Glucose Ql (U) Negative Normal NEGATIVE [facility] Comment on above: Performed By: #### B MP #### [facility] [address] [address] [address] Rakel Fraga Hemoglobin Ql (U) Negative Normal NEGATIVE [facility] Comment on above: Performed By: #### B MP #### [facility] [address] [place] [address] Dr. Rakel Fraga Ketones Ql (U) Negative Normal NEGATIVE [facility] Comment on above: Performed By: #### B MP #### [facility] [address] [place] [address] Dr. Rakel Fraga LEUKOCYTES Negative Normal NEGATIVE [facility] Comment on above: Performed By: #### B MP #### [facility] [address] [place] [address] Dr. Rakel Fraga MUCOUS NONE SEEN Normal NONE SEEN [facility] Comment on above: Performed By: #### B MP #### [facility] [address] [place] [address] Dr. Rakel Fraga Nitrite Ql (U) Negative Normal NEGATIVE [facility] Comment on above: Performed By: #### B MP #### [facility] [address] [place] [address] Dr. Rakel Fraga pH (U) 5.5 [pH] Normal 5-9 [facility] Comment on above: Performed By: #### B MP #### [facility] [address] [place] [address] Dr. Rakel Fraga RBC 0-2 Normal 0-2 [facility] Comment on above: Performed By: #### B MP #### [facility] [address] [place] [address] Dr. Rakel Fraga SPEC GRAVITY >=1.030 Abnormal 1.005-<=1.025 [facility] Comment on above: Performed By: #### B MP #### [facility] [address] [place] [address] Dr. Rakel Fraga UA PROTEIN Negative Normal NEGATIVE/ TRACE [facility] Comment on above: Performed By: #### B MP #### [facility] [address] [place] [address] Dr. Rakel Fraga Urobilinogen Qn (U) 0.2 {Arnoldo'U}/dL Normal 0.2 - 1. 0 [facility] Comment on above: Performed By: #### B MP #### [facility] [address] [place] [address] Dr. Rakel Fraga WBC NONE SEEN Normal NONE SEEN [facility] Comment on above: Performed By: #### B MP #### [facility] [id number] Rakel Fraga XR KUB 1 VIEWon 03-12-2023 XR KUB 1 VIEW EXAMINATION: XR KUB 1 VIEW HISTORY: Abdominal pain COMPARISON: 02/23/2020 FINDINGS: BOWEL GAS PATTERN: No abnormal dilation or deviation. CALCIFICATIONS: None significant. OTHER: Negative. No abnormal gaseous collections. IMPRESSION: Normal bowel gas pattern Electronically authenticated by: JARETT GARCÍA Date: 2023-03-12 14:27 Normal [facility] Covid-19 PCR ([facility])on SARS-CoV-2 (COVID-19) RNA SHADIA+probe Ql (Unsp spec) Not detected Normal NOT DETECTED [facility] [facility] Comment on above: Result Comment: This test is not yet approved or cleared by the [place] FDA. When there are no FDA-approved or cleared tests available, and other criteria are met, FDA can make tests available under an emergency access mechanism called an Emergency Use Authorization (EUA). The EUA for this test is supported by the [place] of Health and Human Service's (HHS's) declaration [...] SARS-CoV-2. Performed By: #### B MP #### [facility] [address] [address] [address] Rakel Fraga INFLUENZA A AND B AGon 01-14 INFLUANEGH SEE BELOW Normal [facility] Comment on above: Result Comment: Nega tive for Flu A protein angiten. Infection due to Flu A cannot be ruled out. Flu A angiten in the sample may be below the detection limit of the test. Performed By: #### I NFLUAB #### [facility] [address] [place] [address] Dr. Rakel Fraga INFLUBNEGH SEE BELOW Normal [facility] Comment on above: Result Comment: Nega tive for Flu B protein antigen. Infection due to Flu B cannot be ruled out. Flu B antigen in the sample may be below the detection limit of the test. Performed By: #### I NFLUAB #### [facility] [address] [place] [address] Dr. Rakel Fraga INFLUENZA A AG Negative Normal NEGATIVE SEE COMMENT [facility] Comment on above: Performed By: #### I NFLUAB #### [facility] [address] [place] [address] Dr. Rakel Fraga INFLUENZA B AG Negative Normal NEGATIVE SEE COMMENT [facility] Comment on above: Performed By: #### I NFLUAB #### [facility] [address] [place] [address] Dr. Rakel Fraga SYMPTOMATIC COVID-19 ANTIGEN on 01-14-2023 EUA Statement SEE BELOW Normal [facility] Comment on above: Result Comment: This [...] sooner. Performed By: #### U AMIC #### [facility] [address] [place] [address] Dr. Rakel Fraga SARS-CoV-2 (COVID-19) RNA SHADIA+probe Ql (Unsp spec) Negative Normal NEGATIVE [facility] Comment on above: Performed By: #### U AMIC #### [facility] [address] [place] [address] Dr. Rakel Fraga PANCREATIC ELASTASE FECALon 01-09-2023 Pancreatic Elastase, Fecal 90 ug Elast./g Critically low >200 [facility] Comment on above: Result Comment: Re sults verified by repeat testing Severe Pancreatic Insufficiency: <100 Moderate Pancreatic Insufficiency: 100 - 200 Normal: >200 Performed By: #### B MP #### [facility] [address] [place] [address] Dr. Rakel Fraga CBC AUTO DIFFon 01-07-2023 BASO # 0.0 103/ul Normal 0.0-0.1 [facility] Comment on above: Performed By: #### C BC #### [facility] [address] [place] [address] Dr. Rakel Fraga Basophils/100 WBC (Bld) 0.3 % Normal 0.2-2.0 [facility] Comment on above: Performed By: #### C BC #### [facility] [address] [place] [address] Dr. Rakel Fraga EO # 0.7 103/ul Normal 0.0-0.7 [facility] Comment on above: Performed By: #### C BC #### [facility] [address] [place] [address] Dr. Rakel Fraga Eosinophils/100 WBC (Bld) 11.6 % Critically high 0.9-7.0 [facility] Comment on above: Performed By: #### C BC #### [facility] [address] [place] [address] Dr. Rakel Fraga Erythrocyte distribution width (RBC) [Ratio] 13.5 % Normal 11.0-15.0 [facility] Comment on above: Performed By: #### C BC #### [facility] [address] [place] [address] Dr. Rakel Fraga Hematocrit (Bld) [Volume fraction] 44.3 % Normal 42.0-54.0 [facility] Comment on above: Performed By: #### C BC #### [facility] [address] [place] [address] Dr. Rakel Fraga Hemoglobin (Bld) [Mass/Vol] 14.4 g/dL Normal 14.0-18.0 [facility] Comment on above: Performed By: #### C BC #### [facility] [address] [place] [address] Dr. Rakel Fraga IG # 0.01 10e3/ul Normal 0.00-0.03 [facility] Comment on above: Performed By: #### C BC #### [facility] [address] [place] [address] Dr. Rakel Fraga IG % 0.2 % Normal 0.0-0.5 [facility] Comment on above: Performed By: #### C BC #### [facility] [address] [place] [address] Dr. Rakel Fraga LYMPH # 2.0 103/ul Normal 1.2-3.8 [facility] Comment on above: Performed By: #### C BC #### [facility] [address] [place] [address] Dr. Rakel Fraga Lymphocytes/100 WBC (Bld) 32.5 % Normal 20.5-60.0 [facility] Comment on above: Performed By: #### C BC #### [facility] [address] [place] [address] Dr. Rakel Fraga MANUAL DIFF REQ NO Normal [facility] Comment on above: Performed By: #### C BC #### [facility] [address] [place] [address] Dr. Rakel Fraga MCH (RBC) [Entitic mass] 29.8 pg Normal 25.9-34.0 [facility] Comment on above: Performed By: #### C BC #### [facility] [address] [place] [address] Dr. Rakel Fraga MCHC (RBC) [Mass/Vol] 32.5 g/dL Normal 29.9-35.2 [facility] Comment on above: Performed By: #### C BC #### [facility] [address] [place] [address] Dr. Rakel Fraga MCV (RBC) [Entitic vol] 91.5 fL Normal 80.0-94.0 [facility] Comment on above: Performed By: #### C BC #### [facility] [address] [place] [address] Dr. Rakel Fraga MONO # 0.4 103/ul Normal 0.3-0.8 [facility] Comment on above: Performed By: #### C BC #### [facility] [address] [place] [address] Dr. Rakel Fraga Monocytes/100 WBC (Bld) 7.1 % Normal 1.7-12.0 [facility] Comment on above: Performed By: #### C BC #### [facility] [address] [place] [address] Dr. Rakel Fraga NEUT # 2.9 103/ul Normal 1.4-6.5 [facility] Comment on above: Performed By: #### C BC #### [facility] [address] [place] [address] Dr. Rakel Fraga Neutrophils/100 WBC (Bld) 48.3 % Normal 43.0-75.0 [facility] Comment on above: Performed By: #### C BC #### [facility] [address] [place] [address] Dr. Rakel Fraga Platelet mean volume (Bld) [Entitic vol] 9.6 fL Normal 9.5-13.5 [facility] Comment on above: Performed By: #### C BC #### [facility] [address] [place] [address] Dr. Rakel Fraga PLT 222 103/ul Normal 150-450 [facility] Comment on above: Performed By: #### C BC #### [facility] [address] [place] [address] Dr. Rakel Fraga RBC 4.84 106/ul Normal 4.70-6.10 [facility] Comment on above: Performed By: #### C BC #### [facility] [address] [address] [address] Rakel Fraga WBC 6.0 103/ul Normal 4.0-11.0 [facility] Comment on above: Performed By: #### C BC #### [facility] [address] [address] [address] Rakel Fraga PROF 14(COMP METB)on 023 Albumin [Mass/Vol] 3.6 g/dL Normal 3.4-5.0 [facility] Comment on above: Performed By: #### C MP ####[facility] [address] [address]DrKailey Fraga Albumin/Globulin [Mass ratio] 1.0 {ratio} Normal [facility] Comment on above: Performed By: #### C MP ####[facility] [address] [address]Dr. Rakel Fraga ALP [Catalytic activity/Vol] 140 U/L Critically high 46-116 [facility] Comment on above: Performed By: #### C MP ####[facility] [address] [address]Dr. Rakel Fraga ALT [Catalytic activity/Vol] 23 U/L Normal 16-63 [facility] Comment on above: Performed By: #### C MP ####[facility] [address] [address]DrKailey Fraga Anion gap [Moles/Vol] 12.4 mmol/L Normal [facility] Comment on above: Performed By: #### C MP ####[facility] [address] [address]Dr. Rakel Fraga AST [Catalytic activity/Vol] 19 U/L Normal 15-37 [facility] Comment on above: Performed By: #### C MP ####[facility] [address] [address]DrKailey Fraga Bilirubin [Mass/Vol] 0.2 mg/dL Normal 0.2-1.0 [facility] Comment on above: Performed By: #### C MP ####[facility] [address] [address]Dr. Rakel Fraga Calcium [Mass/Vol] 8.9 mg/dL Normal 8.5-10.1 [facility] Comment on above: Performed By: #### C MP ####[facility] [address] [address]Dr. Rakel Fraga Chloride [Moles/Vol] 111 mmol/L Critically high 98-107 [facility] Comment on above: Performed By: #### C MP ####[facility] [address] [address]Dr. Rakel Fraga CO2 [Moles/Vol] 27.8 mmol/L Normal 21.0-32.0 [facility] Comment on above: Performed By: #### C MP ####[facility] [address] [place], [place] [address]Dr. Rakel Fraga Creatinine [Mass/Vol] 1.26 mg/dL Normal 0.70-1.30 [facility] Comment on above: Performed By: #### C MP ####[facility] [address] [address]Dr. Rakel Fraga EGFR-AF MALTESE >60 Normal >=60 [facility] Comment on above: Performed By: #### C MP ####[facility] [address] [address]Dr. Rakel Fraga EGFR-NON AF MALTESE 60 mL/min/1.73m2 Normal >=60 [facility] Comment on above: Performed By: #### C MP ####[facility] [address] [address]Dr. Rakel Fraga Globulin (S) [Mass/Vol] 3.6 g/dL Normal [facility] Comment on above: Performed By: #### C MP ####[facility] [address] [address]Dr. Rakel Fraga Glucose [Mass/Vol] 118 mg/dL Critically high 74-106 [facility] Comment on above: Performed By: #### C MP ####[facility] [address] [id number][address] Rakel Fraga Potassium [Moles/Vol] 4.2 mmol/L Normal 3.5-5.1 [facility] Comment on above: Performed By: #### C MP ####[facility] [address] [id number]. Rakel Fraga Protein [Mass/Vol] 7.2 g/dL Normal 6.4-8.2 [facility] Comment on above: Performed By: #### C MP ####[facility] [address] [id number][address] Rakel Fraga Sodium [Moles/Vol] 147 mmol/L Critically high 136-145 [facility] Comment on above: Performed By: #### C MP ####[facility] [address] [address]Dr. Rakel Fraga Urea nitrogen [Mass/Vol] 17.0 mg/dL Normal 7.0-18.0 [facility] Comment on above: Performed By: #### C MP ####[facility] [address] [id number][address] Rakel Fraga Urea nitrogen/Creatinine [Mass ratio] 13.5 mg/mg Normal [facility] Comment on above: Performed By: #### C MP ####[facility] [address] [id number]. Rakel Fraga SED RATE WESTERGRENon 2022 SED RATE 13 mm/hr Normal <=20 [facility] Comment on above: Performed By: #### S EDR ####[facility] [address] [id number] Rakel Fraga STOOL CULTUREon 01-06-2023 Campylobacter Culture Final report Normal [facility] Comment on above: Performed By: #### C XSTOOL #### [facility] [address] [address] [address] Rakel Fraga E coli Shiga Toxin EIA Negative Normal Negative [facility] Comment on above: Performed By: #### C XSTOOL #### [facility] [address] [place] [address] Dr. Rakel Fraga Result 1 Comment Normal [facility] Comment on above: Result Comment: No S almonella or Shigella recovered. Performed By: #### C XSTOOL #### [facility] [address] [place] [address] Dr. Rakel Fraga Result Comment: No C ampylobacter species isolated. Salmonella/Shigella Screen Final report Normal [facility] Comment on above: Performed By: #### C XSTOOL #### [facility] [address] [place] [address] Dr. Rakel Fraga OVA AND PARASITE EXAMINATION on 01-04-2023 Ova + Parasite Exam Final report Normal [facility] Comment on above: Result Comment: Thes e results were obtained using wet preparation(s) and trichrome stained smear. This test does not include testing for Cryptosporidium parvum, Cyclospora, or Microsporidia. Performed By: #### B MP #### [facility] [address] [place] [address] Dr. Rakel Fraga Result 1 Comment Normal [facility] Comment on above: Result Comment: No o va, cysts, or parasites seen. . One negative specimen does not rule out the possibility of a parasitic infection. Performed By: #### B MP #### [facility] [address] [place] [address] Dr. Rakel Fraga C. DIFF PCRon 01-02-2023 C. DIFFICILE PCR Negative Normal NEGATIVE [facility] Comment on above: Performed By: #### U AMIC #### [facility] [address] [place] [address] Dr. Rakel Fraga OCC BLD IMMUNO SCREENon 12-13 OCCULT BLOOD Negative Normal NEGATIVE [facility] Comment on above: Performed By: #### U AMIC #### [facility] [address] [place] [address] Dr. Rakel Fraga LEVETIRACETAM, SERUM OR PLAS MAon 11-09-2022 Levetiracetam, S 20.0 ug/mL Normal 10.0-40.0 [facility] Comment on above: Performed By: #### U AMIC #### [facility] [address] [place] [address] Dr. Rakel Fraga ZONISAMIDEon 11-09-2022 Zonisamide 23.3 ug/mL Normal 10.0-40.0 [facility] Comment on above: Result Comment: Dete ction Limit = 2.0 Performed By: #### B MP #### [facility] [address] [place] [address] Dr. Rakel Fraga CBC AUTO DIFFon 11-07-2022 BASO # 0.1 103/ul Normal 0.0-0.1 [facility] Comment on above: Performed By: #### C BC #### [facility] [address] [place] [address] Dr. Rakel Fraga Basophils/100 WBC (Bld) 0.5 % Normal 0.2-2.0 [facility] Comment on above: Performed By: #### C BC #### [facility] [address] [place] [address] Dr. Rakel Fraga EO # 1.9 103/ul Critically high 0.0-0.7 [facility] Comment on above: Performed By: #### C BC #### [facility] [address] [place] [address] Dr. Rakel Fraga Eosinophils/100 WBC (Bld) 17.1 % Critically high 0.9-7.0 [facility] Comment on above: Performed By: #### C BC #### [facility] [address] [place] [address] Dr. Rakel Fraga Erythrocyte distribution width (RBC) [Ratio] 12.9 % Normal 11.0-15.0 [facility] Comment on above: Performed By: #### C BC #### [facility] [address] [place] [address] Dr. Rakel Fraga Hematocrit (Bld) [Volume fraction] 44.6 % Normal 42.0-54.0 [facility] Comment on above: Performed By: #### C BC #### [facility] [address] [place] [address] Dr. Rakel Fraga Hemoglobin (Bld) [Mass/Vol] 13.8 g/dL Critically low 14.0-18.0 [facility] Comment on above: Performed By: #### C BC #### [facility] [address] [place] [address] Dr. Rakel Fraga IG # 0.03 10e3/ul Normal 0.00-0.03 [facility] Comment on above: Performed By: #### C BC #### [facility] [address] [place] [address] Dr. Rakel Fraga IG % 0.3 % Normal 0.0-0.5 [facility] Comment on above: Performed By: #### C BC #### [facility] [address] [place] [address] Dr. Rakel Fraga LYMPH # 2.1 103/ul Normal 1.2-3.8 [facility] Comment on above: Performed By: #### C BC #### [facility] [address] [place] [address] Dr. Rakel Fraga Lymphocytes/100 WBC (Bld) 18.7 % Critically low 20.5-60.0 [facility] Comment on above: Performed By: #### C BC #### [facility] [address] [place] [address] Dr. Rakel Fraga MANUAL DIFF REQ NO Normal [facility] Comment on above: Performed By: #### C BC #### [facility] [address] [place] [address] Dr. Rakel Fraga MCH (RBC) [Entitic mass] 29.3 pg Normal 25.9-34.0 [facility] Comment on above: Performed By: #### C BC #### [facility] [address] [place] [address] Dr. Rakel Fraga MCHC (RBC) [Mass/Vol] 30.9 g/dL Normal 29.9-35.2 [facility] Comment on above: Performed By: #### C BC #### [facility] [address] [place] [address] Dr. Rakel Fraga MCV (RBC) [Entitic vol] 94.7 fL Critically high 80.0-94.0 [facility] Comment on above: Performed By: #### C BC #### [facility] [address] [place] [address] Dr. Rakel Fraga MONO # 0.6 103/ul Normal 0.3-0.8 [facility] Comment on above: Performed By: #### C BC #### [facility] [address] [place] [address] Dr. Rakel Fraga Monocytes/100 WBC (Bld) 5.4 % Normal 1.7-12.0 [facility] Comment on above: Performed By: #### C BC #### [facility] [address] [place] [address] Dr. Rakel Fraga NEUT # 6.4 103/ul Normal 1.4-6.5 [facility] Comment on above: Performed By: #### C BC #### [facility] [address] [place] [address] Dr. Rakel Fraga Neutrophils/100 WBC (Bld) 58.0 % Normal 43.0-75.0 [facility] Comment on above: Performed By: #### C BC #### [facility] [address] [place] [address] Dr. Rakel Fraga Platelet mean volume (Bld) [Entitic vol] 9.2 fL Critically low 9.5-13.5 [facility] Comment on above: Performed By: #### C BC #### [facility] [address] [place] [address] Dr. Rakel Fraga PLT 261 103/ul Normal 150-450 [facility] Comment on above: Performed By: #### C BC #### [facility] [address] [place] [address] Dr. Rakel Fraga RBC 4.71 106/ul Normal 4.70-6.10 [facility] Comment on above: Performed By: #### C BC #### [facility] [address] [place] [address] Dr. Rakel Fraga WBC 11.0 103/ul Normal 4.0-11.0 [facility] Comment on above: Performed By: #### C BC #### [facility] [address] [address] [address] Rakel Fraga PROF 14(COMP METB)on 023 Albumin [Mass/Vol] 3.6 g/dL Normal 3.4-5.0 [facility] Comment on above: Performed By: #### U AMIC #### [facility] [address] [address] [address] Rakel Fraga Albumin/Globulin [Mass ratio] 0.9 {ratio} Normal [facility] Comment on above: Performed By: #### U AMIC #### [facility] [address] [address] [address] Raekl Fraga ALP [Catalytic activity/Vol] 159 U/L Critically high 46-116 [facility] Comment on above: Performed By: #### U AMIC #### [facility] [address] [address] [address] Rakel Fraga ALT [Catalytic activity/Vol] 20 U/L Normal 16-63 [facility] Comment on above: Performed By: #### U AMIC #### [facility] [address] [address] [address] Rakel Fraga Anion gap [Moles/Vol] 11.4 mmol/L Normal [facility] Comment on above: Performed By: #### U AMIC #### [facility] [address] [address] [address] Rakel Fraga AST [Catalytic activity/Vol] 15 U/L Normal 15-37 [facility] Comment on above: Performed By: #### U AMIC #### [facility] [address] [address] [address] Rakel Fraga Bilirubin [Mass/Vol] 0.3 mg/dL Normal 0.2-1.0 [facility] Comment on above: Performed By: #### U AMIC #### [facility] [address] [address] [address] Rakel Fraga Calcium [Mass/Vol] 9.2 mg/dL Normal 8.5-10.1 [facility] Comment on above: Performed By: #### U AMIC #### [facility] [address] [address] [address] Rakel Fraga Chloride [Moles/Vol] 101 mmol/L Normal 98-107 [facility] Comment on above: Performed By: #### U AMIC #### [facility] [address] [address] [address] Rakel Fraga CO2 [Moles/Vol] 28.5 mmol/L Normal 21.0-32.0 [facility] Comment on above: Performed By: #### U AMIC #### [facility] [address] [address] [address] Rakel Fraga Creatinine [Mass/Vol] 1.07 mg/dL Normal 0.70-1.30 [facility] Comment on above: Performed By: #### U AMIC #### [facility] [address] [address] [address] Rakel Fraga EGFR-AF MALTESE >60 Normal >=60 [facility] Comment on above: Performed By: #### U AMIC #### [facility] [address] [address] [address] Rakel Fraga EGFR-NON AF MALTESE >60 Normal >=60 [facility] Comment on above: Performed By: #### U AMIC #### [facility] [address] [address] [address] Rakel Fraga Globulin (S) [Mass/Vol] 4.0 g/dL Normal [facility] Comment on above: Performed By: #### U AMIC #### [facility] [address] [address] [address] Rakel Fraga Glucose [Mass/Vol] 109 mg/dL Critically high 74-106 [facility] Comment on above: Performed By: #### U AMIC #### [facility] [address] [address] [address] Rakel Fraga Potassium [Moles/Vol] 3.9 mmol/L Normal 3.5-5.1 [facility] Comment on above: Performed By: #### U AMIC #### [facility] [address] [place], [place] [address] Dr. Rakel Fraga Protein [Mass/Vol] 7.6 g/dL Normal 6.4-8.2 [facility] Comment on above: Performed By: #### U AMIC #### [facility] [address] [place], [place] [address] Dr. Rakel Fraga Sodium [Moles/Vol] 137 mmol/L Normal 136-145 [facility] Comment on above: Performed By: #### U AMIC #### [facility] [address] [place], [place] [address] Dr. Rakel Fraga Urea nitrogen [Mass/Vol] 11.0 mg/dL Normal 7.0-18.0 [facility] Comment on above: Performed By: #### U AMIC #### [facility] [address] [place], [place] [address] Dr. Rakel Fraga Urea nitrogen/Creatinine [Mass ratio] 10.3 mg/mg Normal [facility] Comment on above: Performed By: #### U AMIC #### [facility] [address] [place], [place] [address] Dr. Rakel Fraga US SINGLE QUAD RT [...] by: JARETT JARVIS Date: 2022-10-09 10:17 Normal [facility] MRI LSPINE WO CONon 09-17-20 MRI [...] by: JARETT GARCÍA Date: 2022-09-17 12:01 Normal [facility] CT ABD/PELVIS WO CONon 09-10 CT [...] DANIELLE SAID Date: 2022-09-09 23:49 Normal [facility] CBC AUTO DIFFon 09-09-2022 BASO # 0.0 103/ul Normal 0.0-0.1 [facility] Comment on above: Performed By: #### U AMIC #### [facility] [address] [address] [address] Rakel Fraga Basophils/100 WBC (Bld) 0.4 % Normal 0.2-2.0 [facility] Comment on above: Performed By: #### U AMIC #### [facility] [address] [address] [address] Rakel Fraga EO # 0.3 103/ul Normal 0.0-0.7 [facility] Comment on above: Performed By: #### U AMIC #### [facility] [address] [address] [address] Rakel Fraga Eosinophils/100 WBC (Bld) 3.4 % Normal 0.9-7.0 [facility] Comment on above: Performed By: #### U AMIC #### [facility] [address] [address] [address] Rakel Fraga Erythrocyte distribution width (RBC) [Ratio] 13.0 % Normal 11.0-15.0 [facility] Comment on above: Performed By: #### U AMIC #### [facility] [address] [address] [address] Rakel Fraga Hematocrit (Bld) [Volume fraction] 43.8 % Normal 42.0-54.0 [facility] Comment on above: Performed By: #### U AMIC #### [facility] [address] [address] [address] Rakel Fraga Hemoglobin (Bld) [Mass/Vol] 14.6 g/dL Normal 14.0-18.0 [facility] Comment on above: Performed By: #### U AMIC #### [facility] [address] [address] [address] Rakel Fraga IG # 0.02 10e3/ul Normal 0.00-0.03 [facility] Comment on above: Performed By: #### U AMIC #### [facility] [address] [address] [address] Rakel Fraga IG % 0.2 % Normal 0.0-0.5 [facility] Comment on above: Performed By: #### U AMIC #### [facility] [address] [address] [address] Rakel Fraga LYMPH # 2.3 103/ul Normal 1.2-3.8 [facility] Comment on above: Performed By: #### U AMIC #### [facility] [address] [address] [address] Rakel Fraga Lymphocytes/100 WBC (Bld) 25.3 % Normal 20.5-60.0 [facility] Comment on above: Performed By: #### U AMIC #### [facility] [address] [address] [address] Rakel Fraga MANUAL DIFF REQ NO Normal [facility] Comment on above: Performed By: #### U AMIC #### [facility] [address] [address] [address] Rakel Fraga MCH (RBC) [Entitic mass] 30.3 pg Normal 25.9-34.0 [facility] Comment on above: Performed By: #### U AMIC #### [facility] [address] [address] [address] Rakel Fraga MCHC (RBC) [Mass/Vol] 33.3 g/dL Normal 29.9-35.2 [facility] Comment on above: Performed By: #### U AMIC #### [facility] [address] [address] [address] Rakel Fraga MCV (RBC) [Entitic vol] 90.9 fL Normal 80.0-94.0 [facility] Comment on above: Performed By: #### U AMIC #### [facility] [address] [address] [address] Rakel Fraga MONO # 0.8 103/ul Normal 0.3-0.8 [facility] Comment on above: Performed By: #### U AMIC #### [facility] [address] [address] [address] Rakel Fraga Monocytes/100 WBC (Bld) 8.5 % Normal 1.7-12.0 [facility] Comment on above: Performed By: #### U AMIC #### [facility] [address] [place] [address] Dr. Rakel Fraga NEUT # 5.5 103/ul Normal 1.4-6.5 [facility] Comment on above: Performed By: #### U AMIC #### [facility] [address] [place] [address] Dr. Rakel Fraga Neutrophils/100 WBC (Bld) 62.2 % Normal 43.0-75.0 [facility] Comment on above: Performed By: #### U AMIC #### [facility] [address] [place] [address] Dr. Rakel Fraga Platelet mean volume (Bld) [Entitic vol] 9.8 fL Normal 9.5-13.5 [facility] Comment on above: Performed By: #### U AMIC #### [facility] [address] [place] [address] Dr. Rakel Fraga PLT 252 103/ul Normal 150-450 [facility] Comment on above: Performed By: #### U AMIC #### [facility] [address] [place] [address] Dr. Rakel Fraga RBC 4.82 106/ul Normal 4.70-6.10 [facility] Comment on above: Performed By: #### U AMIC #### [facility] [address] [address] [address] Rakel Fraga WBC 8.9 103/ul Normal 4.0-11.0 [facility] Comment on above: Performed By: #### U AMIC #### [facility] [address] [place] [address] Dr. Rakel Fraga PROF CHEM 8 (BAS METB)on Anion gap [Moles/Vol] 9.4 mmol/L Normal [facility] Comment on above: Performed By: #### B MP #### [facility] [address] [place] [address] Dr. Rakel Fraga Calcium [Mass/Vol] 8.5 mg/dL Normal 8.5-10.1 [facility] Comment on above: Performed By: #### B MP #### [facility] [address] [place] [address] Dr. Rakel Fraga Chloride [Moles/Vol] 104 mmol/L Normal 98-107 [facility] Comment on above: Performed By: #### B MP #### [facility] [address] [place] [address] Dr. Rakel Fraga CO2 [Moles/Vol] 28.0 mmol/L Normal 21.0-32.0 [facility] Comment on above: Performed By: #### B MP #### [facility] [address] [place] [address] Dr. Rakel Fraga Creatinine [Mass/Vol] 1.18 mg/dL Normal 0.70-1.30 [facility] Comment on above: Performed By: #### B MP #### [facility] [address] [place] [address] Dr. Rakel Fraga EGFR-AF MALTESE >60 Normal >=60 [facility] Comment on above: Performed By: #### B MP #### [facility] [address] [place] [address] Dr. Rakel Fraga EGFR-NON AF MALTESE >60 Normal >=60 [facility] Comment on above: Performed By: #### B MP #### [facility] [address] [place] [address] Dr. Rakel Fraga Glucose [Mass/Vol] 92 mg/dL Normal 74-106 [facility] Comment on above: Performed By: #### B MP #### [facility] [address] [address] [address] Rakel Fraga Potassium [Moles/Vol] 3.4 mmol/L Critically low 3.5-5.1 [facility] Comment on above: Performed By: #### B MP #### [facility] [address] [address] [address] Rakel Fraga Sodium [Moles/Vol] 138 mmol/L Normal 136-145 [facility] Comment on above: Performed By: #### B MP #### [facility] [address] [address] [address] Rakel Fraga Urea nitrogen [Mass/Vol] 20.0 mg/dL Critically high 7.0-18.0 [facility] Comment on above: Performed By: #### B MP #### [facility] [address] [address] [address] Rakel Fraga Urea nitrogen/Creatinine [Mass ratio] 16.9 mg/mg Normal [facility] Comment on above: Performed By: #### B MP #### [facility] [address] [place] [address] HEAD WO CONon [...] DE PAZ Date: 2022-07-28 14:51 Normal [facility] WO CONon 07-20-20 22 MRI [facility] CON EXAMINATION: MRI [facility] CON HISTORY: Anesthesia of skin [...] NOEMÍ MORRISON Date: 2022-07-20 12:52 Normal [facility] OVA AND PARASITE EXAMINATION on 07-13-2022 Ova + Parasite Exam Final report Normal [facility] Comment on above: Result Comment: Thes e results were obtained using wet preparation(s) and trichrome stained smear. This test does not include testing for Cryptosporidium parvum, Cyclospora, or Microsporidia. Performed By: #### U AMIC #### [facility] [address] [address] [address] Rakel Fraga Result 1 Comment Normal [facility] Comment on above: Result Comment: No o va, cysts, or parasites seen. . One negative specimen does not rule out the possibility of a parasitic infection. Performed By: #### U AMIC #### [facility] [address] [address] [address] Rakel Fraga CLOSTRIDIUM DIFFICILE PCRon 07-12-2022 C difficile Toxin Gene SHADIA Negative Normal Negative [facility] Comment on above: Performed By: #### C DIFNAA #### [facility] [address] [address] [address] Rakel Fraga Physician Referralon 022 Physician Referral [id number] Normal [facility] STOOL CULTUREon 07-10-2022 Campylobacter Culture Final report Normal [facility] Comment on above: Performed By: #### C XSTOOL ####[facility] [address] [address]DrKailey Fraga E coli Shiga Toxin EIA Negative Normal Negative [facility] Comment on above: Performed By: #### C XSTOOL ####[facility] [address] [address]DrKailey Fraga Result 1 Comment Normal [facility] Comment on above: Result Comment: No S almonella or Shigella recovered. Performed By: #### C XSTOOL ####[facility] [address] [address]DrKailey Fraga Result Comment: No C ampylobacter species isolated. Salmonella/Shigella Screen Final report Normal [facility] Comment on above: Performed By: #### C XSTOOL ####[facility] [address] [address] ABD/PELV W CONon 07-07-20 [...] ALBERTO REDMAN Date: 2022-07-07 16:50 Normal [facility] AMYLASEon 07-04-2022 Amylase [Catalytic activity/Vol] 40 U/L Normal 25-115 [facility] Comment on above: Performed By: #### L IPA, CHILANGO, CRP, CMP ####[facility] [address] [id number] Rakel Fraga CBC AUTO DIFFon 07-04-2022 BASO # 0.0 103/ul Normal 0.0-0.1 [facility] Comment on above: Performed By: #### B MP #### [facility] [address] [id number] Rakel Fraga Basophils/100 WBC (Bld) 0.5 % Normal 0.2-2.0 [facility] Comment on above: Performed By: #### B MP #### [facility] [address] [place] [address] Dr. Rakel Fraga EO # 0.5 103/ul Normal 0.0-0.7 [facility] Comment on above: Performed By: #### B MP #### [facility] [address] [place] [address] Dr. Rakel Fraga Eosinophils/100 WBC (Bld) 6.8 % Normal 0.9-7.0 [facility] Comment on above: Performed By: #### B MP #### [facility] [address] [place] [address] Dr. Rakel Fraga Erythrocyte distribution width (RBC) [Ratio] 13.0 % Normal 11.0-15.0 [facility] Comment on above: Performed By: #### B MP #### [facility] [address] [place] [address] Dr. Rakel Fraga Hematocrit (Bld) [Volume fraction] 39.2 % Critically low 42.0-54.0 [facility] Comment on above: Performed By: #### B MP #### [facility] [address] [place] [address] Dr. Rakel Fraga Hemoglobin (Bld) [Mass/Vol] 12.7 g/dL Critically low 14.0-18.0 [facility] Comment on above: Performed By: #### B MP #### [facility] [address] [place] [address] Dr. Rakel Fraga IG # 0.02 10e3/ul Normal 0.00-0.03 [facility] Comment on above: Performed By: #### B MP #### [facility] [address] [place] [address] Dr. Rakel Fraga IG % 0.3 % Normal 0.0-0.5 [facility] Comment on above: Performed By: #### B MP #### [facility] [address] [place] [address] Dr. Rakel Fraga LYMPH # 1.5 103/ul Normal 1.2-3.8 [facility] Comment on above: Performed By: #### B MP #### [facility] [address] [place] [address] Dr. Rakel Fraga Lymphocytes/100 WBC (Bld) 22.4 % Normal 20.5-60.0 [facility] Comment on above: Performed By: #### B MP #### [facility] [address] [place] [address] Dr. Rakel Fraga MANUAL DIFF REQ NO Normal [facility] Comment on above: Performed By: #### B MP #### [facility] [address] [place] [address] Dr. Rakel Fraga MCH (RBC) [Entitic mass] 29.8 pg Normal 25.9-34.0 [facility] Comment on above: Performed By: #### B MP #### [facility] [address] [place] [address] Dr. Rakel Fraga MCHC (RBC) [Mass/Vol] 32.4 g/dL Normal 29.9-35.2 [facility] Comment on above: Performed By: #### B MP #### [facility] [address] [place] [address] Dr. Rakel Fraga MCV (RBC) [Entitic vol] 92.0 fL Normal 80.0-94.0 [facility] Comment on above: Performed By: #### B MP #### [facility] [address] [place] [address] Dr. Rakel Fraga MONO # 0.4 103/ul Normal 0.3-0.8 [facility] Comment on above: Performed By: #### B MP #### [facility] [address] [place] [address] Dr. Rakel Fraga Monocytes/100 WBC (Bld) 6.2 % Normal 1.7-12.0 [facility] Comment on above: Performed By: #### B MP #### [facility] [address] [place] [address] Dr. Rakel Fraga NEUT # 4.2 103/ul Normal 1.4-6.5 [facility] Comment on above: Performed By: #### B MP #### [facility] [address] [address] [address] Rakel Fraga Neutrophils/100 WBC (Bld) 63.8 % Normal 43.0-75.0 [facility] Comment on above: Performed By: #### B MP #### [facility] [address] [address] [address] Rakel Fraga Platelet mean volume (Bld) [Entitic vol] 9.8 fL Normal 9.5-13.5 [facility] Comment on above: Performed By: #### B MP #### [facility] [address] [place] [address] Dr. Rakel Fraga PLT 185 103/ul Normal 150-450 [facility] Comment on above: Performed By: #### B MP #### [facility] [address] [place] [address] Dr. Rakel Fraga RBC 4.26 106/ul Critically low 4.70-6.10 [facility] Comment on above: Performed By: #### B MP #### [facility] [address] [place] [address] Dr. Rakel Fraga WBC 6.6 103/ul Normal 4.0-11.0 [facility] Comment on above: Performed By: #### B MP #### [facility] [address] [place] [address] Dr. Rakel Fraga CRPon 07-04-2022 CRP [Mass/Vol] mg/L Normal <=1.0 [facility] Comment on above: Performed By: #### L IPA, CHILANGO, CRP, CMP ####[facility] [address] [place], [place] [address]Dr. Rakel Fraga LIPASEon 07-04-2022 Lipase [Catalytic activity/Vol] 65.0 U/L Critically low 73.0-393.0 [facility] Comment on above: Performed By: #### L IPA, CHILANGO, CRP, CMP ####[facility] [address] [place], [place] [address]Dr. Rakel Fraga OCC BLD IMMUNO SCREENon 06-15 OCCULT BLOOD Negative Normal NEGATIVE [facility] Comment on above: Performed By: #### U AMIC #### [facility] [address] [address] [address] Rakel Fraga PROF 14(COMP METB)on 022 Albumin [Mass/Vol] 3.7 g/dL Normal 3.4-5.0 [facility] Comment on above: Performed By: #### L IPA, CHILANGO, CRP, CMP ####[facility] [address] [address]Dr. Rakel Fraga Albumin/Globulin [Mass ratio] 1.2 {ratio} Normal [facility] Comment on above: Performed By: #### L IPA, CHILANGO, CRP, CMP ####[facility] [address] [address]Dr. Rakel Fraga ALP [Catalytic activity/Vol] 101 U/L Normal 46-116 [facility] Comment on above: Performed By: #### L IPA, CHILANGO, CRP, CMP ####[facility] [address] [address]Dr. Rakel Fraga ALT [Catalytic activity/Vol] 47 U/L Normal 16-63 [facility] Comment on above: Performed By: #### L IPA, CHILANGO, CRP, CMP ####[facility] [address] [address]Dr. Rakel Fraga Anion gap [Moles/Vol] 11.1 mmol/L Normal [facility] Comment on above: Performed By: #### L IPA, CHILANGO, CRP, CMP ####[facility] [address] [address]Dr. Rakel Fraga AST [Catalytic activity/Vol] 28 U/L Normal 15-37 [facility] Comment on above: Performed By: #### L IPA, CHILANGO, CRP, CMP ####[facility] [address] [address]Dr. Rakel Fraga Bilirubin [Mass/Vol] 0.5 mg/dL Normal 0.2-1.0 [facility] Comment on above: Performed By: #### L IPA, CHILANGO, CRP, CMP ####[facility] [address] [address]Dr. Rakel Fraga Calcium [Mass/Vol] 8.7 mg/dL Normal 8.5-10.1 [facility] Comment on above: Performed By: #### L IPA, CHILANGO, CRP, CMP ####[facility] [address] [address]Dr. Rakel Fraga Chloride [Moles/Vol] 110 mmol/L Critically high 98-107 [facility] Comment on above: Performed By: #### L IPA, CHILANGO, CRP, CMP ####[facility] [address] [place], [place] [address]Dr. Rakel Fraga CO2 [Moles/Vol] 26.0 mmol/L Normal 21.0-32.0 [facility] Comment on above: Performed By: #### L IPA, CHILANGO, CRP, CMP ####[facility] [address] [place], [place] [address]Dr. Rakel Fraga Creatinine [Mass/Vol] 1.23 mg/dL Normal 0.70-1.30 [facility] Comment on above: Performed By: #### L IPA, CHILANGO, CRP, CMP ####[facility] [address] [place], [place] [address]Dr. Rakel Fraga EGFR-AF MALTESE >60 Normal >=60 [facility] Comment on above: Performed By: #### L IPA, CHILANGO, CRP, CMP ####[facility] [address] [place], [place] [address]Dr. Rakel Fraga EGFR-NON AF MALTESE >60 Normal >=60 [facility] Comment on above: Performed By: #### L IPA, CHILANGO, CRP, CMP ####[facility] [address] [place], [place] [address]Dr. Rakel Fraga Globulin (S) [Mass/Vol] 3.2 g/dL Normal [facility] Comment on above: Performed By: #### L IPA, CHILANGO, CRP, CMP ####[facility] [address] [address]Dr. Rakel Fraga Glucose [Mass/Vol] 82 mg/dL Normal 74-106 [facility] Comment on above: Performed By: #### L IPA, CHILANGO, CRP, CMP ####[facility] [address] [address]Dr. Rakel Fraga Potassium [Moles/Vol] 4.1 mmol/L Normal 3.5-5.1 [facility] Comment on above: Performed By: #### L IPA, CHILANGO, CRP, CMP ####[facility] [address] [address]Dr. Rakel Fraga Protein [Mass/Vol] 6.9 g/dL Normal 6.4-8.2 [facility] Comment on above: Performed By: #### L IPA, CHILANGO, CRP, CMP ####[facility] [address] [place], [place] [address]Dr. Rosaliechiquita Fraga Sodium [Moles/Vol] 143 mmol/L Normal 136-145 [facility] Comment on above: Performed By: #### L IPA, CHILANGO, CRP, CMP ####[facility] [address] [place], [place] [address]Dr. Rosaliechiquita Fraga Urea nitrogen [Mass/Vol] 23.0 mg/dL Critically high 7.0-18.0 [facility] Comment on above: Performed By: #### L IPA, CHILANGO, CRP, CMP ####[facility] [address] [address]Dr. Rakel Fraga Urea nitrogen/Creatinine [Mass ratio] 18.7 mg/mg Normal [facility] Comment on above: Performed By: #### L IPA, CHILANGO, CRP, CMP ####[facility] [address] [address]Dr. Rakel Fraga SED RATE WESTERGRENon 2021 SED RATE 7 mm/hr Normal <=20 [facility] Comment on above: Performed By: #### S EDR ####[facility] [address] [place], [place] [address]Dr. Rakel Fraga UA RANDOM W/MICROSCOPICon BACTERIA NONE SEEN Normal NONE SEEN [facility] Comment on above: Performed By: #### U AMIC #### [facility] [address] [address] [address] Rakel Fraga Bilirubin Ql (U) Negative Normal NEGATIVE [facility] Comment on above: Performed By: #### U AMIC #### [facility] [address] [address] [address] Rakel Fraga CAST NONE SEEN Normal NONE SEEN [facility] Comment on above: Performed By: #### U AMIC #### [facility] [address] [address] [address] Rakel Fraga Clarity (U) CLEAR Normal CLEAR [facility] Comment on above: Performed By: #### U AMIC #### [facility] [address] [place] [address] Dr. Rakel Fraga Color (U) YELLOW Normal YELLOW [facility] Comment on above: Performed By: #### U AMIC #### [facility] [address] [place] [address] Dr. Rakel Fraga Crystals LM Nom (Urine sed) NONE SEEN Normal NONE SEEN [facility] Comment on above: Performed By: #### U AMIC #### [facility] [address] [place] [address] Dr. Rakel Fraga Epithelial cells LM Ql (Urine sed) RARE Normal NONE SEEN /RARE [facility] Comment on above: Performed By: #### U AMIC #### [facility] [address] [address] [address] Rakel Fraga Glucose Ql (U) Negative Normal NEGATIVE [facility] Comment on above: Performed By: #### U AMIC #### [facility] [address] [address] [address] Rakel Fraga Hemoglobin Ql (U) Negative Normal NEGATIVE [facility] Comment on above: Performed By: #### U AMIC #### [facility] [address] [place] [address] Dr. Rakel Fraga Ketones Ql (U) Negative Normal NEGATIVE [facility] Comment on above: Performed By: #### U AMIC #### [facility] [address] [place] [address] Dr. Rakel Fraga LEUKOCYTES Negative Normal NEGATIVE [facility] Comment on above: Performed By: #### U AMIC #### [facility] [address] [place] [address] Dr. Rakel Fraga MUCOUS NONE SEEN Normal NONE SEEN [facility] Comment on above: Performed By: #### U AMIC #### [facility] [address] [address] [address] Rakel Fraga Nitrite Ql (U) Negative Normal NEGATIVE [facility] Comment on above: Performed By: #### U AMIC #### [facility] [address] [place] [address] Dr. Rakel Fraga pH (U) 5.5 [pH] Normal 5-9 [facility] Comment on above: Performed By: #### U AMIC #### [facility] [address] [place] [address] Dr. Rakel Fraga RBC NONE SEEN Abnormal 0-2 [facility] Comment on above: Performed By: #### U AMIC #### [facility] [address] [place] [address] Dr. Rakel Fraga SPEC GRAVITY >=1.030 Abnormal 1.005-<=1.025 [facility] Comment on above: Performed By: #### U AMIC #### [facility] [address] [place] [address] Dr. Rakel Fraga UA PROTEIN Negative Normal NEGATIVE/ TRACE [facility] Comment on above: Performed By: #### U AMIC #### [facility] [address] [place] [address] Dr. Rakel Fraga Urobilinogen Qn (U) 0.2 {Arnoldo'U}/dL Normal 0.2 - 1. 0 [facility] Comment on above: Performed By: #### U AMIC #### [facility] [address] [place] [address] Dr. Rakel Fraga WBC NONE SEEN Normal NONE SEEN [facility] Comment on above: Performed By: #### U AMIC #### [facility] [address] [address] [address] Rakel Fraga NM HEPATOBILIARY SCAN W [...] by: JARETT GARCÍA Date: 2022-06-29 16:08 Normal [facility] US SINGLE QUAD RT UPPERon US [...] by: NOEMÍ MORRISON Date: 2022-06-25 13:03 Normal [facility] Coding Summaryon 04-05-2020 Coding Summary CODING DATE: 04/05/2020 [facility] STATUS: Home PAYOR: Medicare ADMIT DX: REASON [...] Concha Lovett Date Saved: 04/05/2020 12:34 pm [facility] Consent Formson 03-31-2020 Consent Forms [id number] Managementon 03-14 Medication Management [id number] Anesthesia Noteon 03-30-2020 Anesthesia Note Patient: KALANI [...] history): All Problems Depression / SNOMED CT 535496421 / Confirmed Asthma / SNOMED CT 739997251 / Confirmed Chronic maxillary sinusitis / SNOMED CT 64479603 / Confirmed Epileptic seizures / SNOMED CT 854629513 / Confirmed Lumbago / SNOMED CT 802313049 / Confirmed Lumbar spondylosis / SNOMED CT 162876955 / Confirmed Histories Family History: No family [...] Oriented. Review / Management Laboratory Results Plan [place] [employer]#( A) physical status classification: Class II. Anesthetic Preoperative Plan Anesthesia: Monitored anesthesia care. Anesthetic plan, risks, benefits, and alternatives discussed with the patient and/or family. Patient verbalized understanding. [Electronically Signed on: 03/30/2020 09:37 EDT] Nando Saeed MD [Verified on: 03/30/2020 09:37 EDT] Nando Saeed MD [facility] Inpatient Patient Summaryon 03-30-2020 [place] [address] Patient Discharge Instructions Name: KALANI ASENCIO : 1970 Patient Address: [address] [place] [address] Primary Care Provider: Name: Marcia Rodriguez DO After you are discharged if you find you have any questions, please, call [phone] ext [phone] to speak to a nurse. Discharge Diagnosis: Lumbago; Lumbar spondylosis Prescription Information: If you have been given a prescription for narcotics, seek immediate medical attention if you have any difficulty breathing or any sudden status changes such as confusion and sleepiness. If you or anyone you know is experiencing suicidal thoughts, mental health, alcohol and/or drug addiction problems; contact the [facility] 06/05 Crisis Hotline -Text 4HXVQ co 907655. If you received any narcotics, sedation, or [...] business decisions or sign any legal documents [facility] would like to thank you for allowing [...] for Disease Control and Prevention June 2014 [facility] Intraoperative Record [facility] Intra-Op Record Summary Primary Physician: Hany Galo MD Finalized Date/Time: 03/30/20 09:59:33 Pt. Name: KALANI ASENCIO /Sex: 1970 MALE Med Rec #: [id number] Physician: Hany Galo MD Financial #: [id number] Pt. Type: D Room/Bed: / Admit/Disch: 03/30/20 [...] Role Performed Surgeon - Primary Anesthesiologist of Neuropsychology Director Record Time In 03/30/20 09:48:00 03/30/20 09:48:00 03/30/20 09:48:00 Time Out 03/30/20 09:57:00 03/30/20 09:57:00 03/30/20 09:57:00 Procedure Medial Branch Medial Branch Medial Branch Block(Bilateral) Block(Bilateral) Block(Bilateral) Last Modified By: Mitzi Wu RN, Stephanie RN Sauer, Stephanie RN 03/30/20 09:57:46 03/30/20 09:57:46 03/30/20 09:57:46 Entry 4 Entry 5 Entry 6 Case Attendee Mitzi Wu RN, Kelly Calmes, Luke T Role Performed Neuropsychology Director Neuropsychology Director Tomato Grader Time In 03/30/20 09:48:00 03/30/20 09:48:00 03/30/20 09:48:00 Time Out 03/30/20 09:57:00 03/30/20 09:57:00 03/30/20 09:57:00 Procedure Medial Branch Medial Branch Medial Branch Block(Bilateral) Block(Bilateral) Block(Bilateral) Last Modified By: Mitzi Wu RN, Stephanie RN Sauer, Stephanie RN 03/30/20 09:57:46 03/30/20 09:57:46 03/30/20 09:57:46 Entry 7 Entry 8 Entry 9 Case Attendee Angeli Belcher Courtney CAR STOWER Ke Allen CST Role Performed Scrub Personnel Scrub Personnel Tomato Grader Time In 03/30/20 09:48:00 03/30/20 09:48:00 03/30/20 [...] Agents (Im.270) Povidone-Iodine Prep By Abida Suh CAR STOWER Prep Area (Im.270) Back Skin Prep Agent [...] Signed By: Mitzi Wu RN 03/30/20 09:59 [facility]2020 [facility] Preoperative Record MAGR Pre-Op Record Summary Primary Physician: Hany Galo MD Finalized Date/Time: 03/30/20 10:12:44 Pt. Name: KALANI ASENCIO./Sex: 1970 MALE Med Rec #: [id number] Physician: Hany Galo MD Financial #: [id number] Pt. Type: D Room/Bed: / Admit/Disch: 03/30/20 [...] By: Kassie James RN 03/30/20 10:12 Normal [facility] Operative Report - Surgeon/P hilary 03-30-2020 Operative [...] on: 03/30/2020 09:56 EDT] Hany Galo MD [facility] Patient Handouton 03-30-2020 Patient Handout Pain [...] to your first appointment after your procedure [facility] Coding Summaryon 03-29-2020 Coding Summary CODING DATE: 03/29/2020 [facility] STATUS: Home PAYOR: Medicare ADMIT DX: REASON [...] Mandy Tarango Date Saved: 03/29/2020 03:20 pm [facility] History and Physicalon 03-29 History and Physical [id number] #[id number] The patient has been examined and the medical record reviewed. The indications for surgery and exam are unchanged. [Electronically Signed on: 03/30/2020 08:37 EDT] Hany Galo MD [Verified on: 03/30/2020 08:37 EDT] Hany Galo MD [Transcribed on: 03/29/2020 14:32 EDT] [facility] Lab - Immunology/Serology Re sultson 03-29-2020 Lab - Immunology/Serology Results [id number] .00OTGTIFF [facility] Provider Orderson 03-28-2020 Provider Orders [id number] .00OTGTIFF [facility] SARS-CoV-2 (COVID-19) PCRon 03-28-2020 COVID-19 PCR Not Detected Normal Not Detected [facility] Comment on above: Order Comment: SENT TO [facility] 03/27/2020 SD Result Comment: Perf ormed at [facility] Department of Pathology [address] [place] [address] Results Called To Javier Dowell RN, Molecular Physicist By HECTOR And Read Back For Confirmation On 03/28/2020 15:36:12 EDT. Performed By: #### [id number] ####[facility] (DEFAULT)[address] [place] [address] Progress Note - Provideron 0 03-25-2020 Progress Note - Provider [id number] .00OTGTIFF [facility] Coding Summaryon 03-24-2020 Coding Summary CODING DATE: 03/24/2020 [facility] STATUS: Home PAYOR: Medicare ADMIT DX: REASON [...] Coded By: Madeleine Baugh Date Saved: 03/24/2020 04:50 pm [facility] Coding Summary CODING DATE: 03/24/2020 [facility] STATUS: Home PAYOR: Medicare ADMIT DX: REASON [...] Madeleine Baugh Date Saved: 03/24/2020 01:02 pm [facility] Coding Summaryon 03-21-2020 Coding Summary CODING DATE: 03/21/2020 [facility] STATUS: Home PAYOR: Medicare ADMIT DX: REASON [...] Concha Lovett Date Saved: 03/21/2020 07:48 am [facility] Consent Formson 03-17-2020 Consent Forms [id number] .[facility] Medication Managementon Medication Management [id number] .[facility] Anesthesia Noteon 03-16-2020 Anesthesia Note Patient: KALANI [...] on: 03/16/2020 10:38 EDT] Warren Quach MD [facility] Anesthesia Note Patient: KALANI ASENCIO Age: [...] history): All Problems Depression / SNOMED CT 970668703 / Confirmed Asthma / SNOMED CT 592371599 / Confirmed Chronic maxillary sinusitis / SNOMED CT 84269524 / Confirmed Epileptic seizures / SNOMED CT 988409276 / Confirmed Lumbago / SNOMED CT 937651851 / Confirmed Lumbar spondylosis / SNOMED CT 719530953 / Confirmed Histories Family History: No family [...] Oriented. Review / Management Laboratory Results Plan [place] [employer]#( A) physical status classification: Class II. Anesthetic Preoperative Plan Anesthesia: Monitored anesthesia care. Anesthetic plan, risks, benefits, and alternatives discussed with the patient and/or family. Patient verbalized understanding. Informed consent was given. Anesthetic technique: Monitored anesthesia care. [Electronically Signed on: 03/16/2020 10:32 EDT] Warren Quach MD [Verified on: 03/16/2020 10:32 EDT] Warren Quach MD [facility] Inpatient Patient Summaryon 03-16-2020 [place] [address] Patient Discharge Instructions Name: KALANI ASENCIO : 1970 Patient Address: [address] [place] [address] Primary Care Provider: Name: Marcia Rodriguez DO After you are discharged if you find you have any questions, please, call [phone] ext [phone] to speak to a nurse. Discharge Diagnosis: [...] contact the Mental Health & Recovery Board [facility] 06/05 Crisis Hotline -Text 4HYPM of [phone]. If you received any narcotics, sedation, or [...] business decisions or sign any legal documents [facility] would like to thank you for allowing [...] for Disease Control and Prevention June 2014 [facility] Lab - Immunology/Serology Re sultson 03-16-2020 Lab - Immunology/Serology Results [id number] .00OTGTIFF [facility] MAGR Intraoperative Recordon 03-16-2020 MAGR Intraoperative Record MAGR Intra-Op Record Summary Primary Physician: Hany Galo MD Finalized Date/Time: 03/16/20 10:40:07 Pt. Name: KALANI ASENCIO Mario MezaB./Sex: 1970 MALE Med Rec #: [id number] Physician: Hany Galo MD Financial #: [id number] Pt. Type: D Room/Bed: / Admit/Disch: 03/16/20 [...] Role Performed Surgeon - Primary Anesthesiologist of Neuropsychology Director Record Time In 03/16/20 10:30:00 03/16/20 10:30:00 03/16/20 10:30:00 Time Out 03/16/20 10:36:00 03/16/20 10:36:00 03/16/20 10:36:00 Procedure Medial Branch Medial Branch Medial Branch Block(Bilateral) Block(Bilateral) Block(Bilateral) Last Modified By: Swathi Beltran RN, Barbara RN Long, Barbara RN 03/16/20 10:36:38 03/16/20 10:36:38 03/16/20 10:36:38 Entry 4 Entry 5 Entry 6 Case Attendee Jorge MORRIS, Krystle Goldman Liberty G Role Performed Neuropsychology Director Neuropsychology Director Scrub Personnel Time In 03/16/20 10:30:00 03/16/20 10:30:00 03/16/20 10:30:00 Time Out 03/16/20 10:36:00 03/16/20 10:36:00 03/16/20 10:36:00 Procedure Medial Branch Medial Branch Medial Branch Block(Bilateral) Block(Bilateral) Block(Bilateral) Last Modified By: Swathi Beltran RN, Barbara RN Long, Barbara RN 03/16/20 10:36:38 03/16/20 10:36:38 03/16/20 10:36:38 Entry 7 Case Attendee Courtney Fay Role Performed Tomato Grader Time In 03/16/20 10:30:00 Time Out 03/16/20 [...] Signed By: Swathi Beltran RN 03/16/20 10:40 [facility] 03-16-2020 [facility] Preoperative Record MAGR Pre-Op Record Summary Primary Physician: Hany Galo MD Finalized Date/Time: 03/16/20 10:54:47 Pt. Name: KALANI ASENCIO Mario MezaB./Sex: 1970 MALE Med Rec #: [id number] Physician: Hany Galo MD Financial #: [id number] Pt. Type: D Room/Bed: / Admit/Disch: 03/16/20 [...] By: Blanka Szymanski RN 03/16/20 10:54 Normal [facility] Operative Report - Surgeon/P hilary 03-16-2020 Operative [...] on: 03/16/2020 10:35 EDT] Hany Galo MD [facility] Patient Handouton 03-16-2020 Patient Handout Pain [...] to your first appointment after your procedure [facility] History and Physicalon 03-15 History and Physical [id number] .00OTGTIFF The patient has been examined and the medical record reviewed. The indications for surgery and exam are unchanged. [Electronically Signed on: 03/16/2020 10:25 EDT] Hany Galo MD [Verified on: 03/16/2020 10:25 EDT] Hany Galo MD [Transcribed on: 03/15/2020 13:40 EDT] [facility] Lab - Reference Lab Resultso n 03-15-2020 Lab - Reference Lab Results [id number] .00OTGTIFF [facility] Progress Note - Provideron 0 03-15-2020 Progress Note - Provider [id number] .00OTGTIFF [facility] SARS-CoV-2 (COVID-19) PCRon 03-15-2020 COVID-19 PCR Not Detected Normal Not Detected [facility] Comment on above: Order Comment: Sent to [facility] 03/13/2020 11:05:18 EDT SD Performed By: #### [id number] ####[facility] (DEFAULT)[address] [place] [address] Provider Orderson 03-14-2020 Provider Orders [id number] .00OTGTIFF [facility] Coding Summaryon 03-10-2020 Coding Summary CODING DATE: 03/10/2020 [facility] STATUS: Home PAYOR: Medicare ADMIT DX: REASON [...] Madeleine Baugh Date Saved: 03/10/2020 03:34 pm [facility] Coding Summaryon 03-08-2020 Coding Summary CODING DATE: 03/08/2020 [facility] STATUS: Home PAYOR: Medicare ADMIT DX: REASON [...] Madeleine Baugh Date Saved: 03/08/2020 09:40 am [facility] Coding Summaryon 02-29-2020 Coding Summary CODING DATE: 02/29/2020 [facility] STATUS: Home PAYOR: Medicare APC DESCRIPTION 5522 [...] Tarango Revised Date Saved: 02/24/2020 08:52 am [facility] Controlled Substances Agreem entson 02-26-2020 Controlled Substances Agreements [id number] .00OTGTIFF [facility] Progress Note - Provideron 0 02-25-2020 Progress Note - Provider [id number] .00OTGTIFF [facility] XR Spine Lumbosacral Complet e w/ [...] Davi Bassett MD 02/26/20 6:21 am Technologist: [facility] XR Spine Thoracic 3 Viewson 02-23-2020 XR [...] Bassett MD 02/26/20 6:21 am Technologist: PEDRO [facility] Vital Signs Date Time Vital Sign Value Performing Clinician Facility 08-29-2023 14:20-0500 Body height 187.96 cm Jemal Teague Other [email or web address] Other 08-29-2023 14:20-0500 Body mass index (BMI) [Ratio] 19.9 kg/m2 Jemal Teague Other [email or web address] Other 08-29-2023 14:20-0500 Body weight 70.31 kg Jemal Teague Other [email or web address] Other 06-11-2023 14:15-0400 Body height 187.96 cm Govenlock Greenad Colibrí Other [email or web address] Other 06-11-2023 14:15-0400 Body mass index (BMI) [Ratio] 19.9 kg/m2 Imad Asaad Other [email or web address] Other 06-11-2023 14:15-0400 Body weight 70.31 kg Imad Asaad Other [email or web address] Other 06-11-2023 14:15-0400 Diastolic blood pressure 71 mm[Hg] Imad Asaad Other [email or web address] Other 06-11-2023 14:15-0400 Respiratory rate 18 /min Imad Asaad Other [email or web address] Other 06-11-2023 14:15-0400 Systolic blood pressure 122 mm[Hg] Imad Asaad Other [facility] [employer] Other 04-18-2023 14:50-0400 Diastolic blood pressure 77 mm[Hg] [facility] 04-18-2023 14:50-0400 Heart rate 73 /min [facility] 04-18-2023 14:50-0400 Respiratory rate 16 /min [facility] 04-18-2023 14:50-0400 SaO2% (BldA) [Mass fraction] 98 % [facility] 04-18-2023 14:50-0400 Systolic blood pressure 106 mm[Hg] [facility] 04-18-2023 12:36-0400 Body height 185.42 cm [facility] 04-18-2023 12:36-0400 Body temperature 98.2 [degF] [facility] 04-18-2023 12:36-0400 Body weight 68.03 kg [facility] 03-13-2023 14:00-0400 Body height 187.96 cm Imad Asaad Other [facility] [employer] Other 03-13-2023 14:00-0400 Body mass index (BMI) [Ratio] 19.51 kg/m2 Imad Asaad Other [email or web address] Other 03-13-2023 14:00-0400 Body weight 68.95 kg Imad Asaad Other [email or web address] Other 03-13-2023 14:00-0400 Diastolic blood pressure 70 mm[Hg] Imad Asaad Other [email or web address] Other 03-13-2023 14:00-0400 Respiratory rate 18 /min Imad Asaad Other [email or web address] Other 03-13-2023 14:00-0400 Systolic blood pressure 150 mm[Hg] Imad Asaad Other [email or web address] Other Encounters Encounter Date Encounter Type Care Provider Facility Start: 10-09-2023 End: 10-09-2023 ambulatory CARMEN PRATT Not Available Start: 08-29-2023 End: 08-29-2023 ambulatory Jemal Teague Other [facility] [employer] Other Start: 08-29-2023 Office outpatient new 30 minutes Jemal Teague [facility] Neurosurgery Start: 08-27-2023 End: 08-27-2023 ambulatory NON STAFF Facility:[facility] Start: 08-27-2023 End: 08-27-2023 ambulatory NON STAFF [facility] Work Phone: Start: 08-27-2023 End: 08-27-2023 Patient encounter procedure [facility]-X[facility] Work Phone: Start: 06-11-2023 End: 06-11-2023 ambulatory Imad Asaad Other [facility] [employer] Other Start: 06-11-2023 Office outpatient visit 25 minutes Imad Asaad [facility] Start: 04-18-2023 End: 04-18-2023 ambulatory Imad Asaad Facility:[facility] Start: 04-18-2023 End: 04-18-2023 Admission to same day surgery center [facility] Work Phone: Start: 04-18-2023 End: 04-18-2023 ambulatory NON STAFF [facility] Work Phone: Start: 03-13-2023 End: 03-13-2023 ambulatory Imad Asaad Other [facility] [employer] Other Start: 03-13-2023 Office outpatient new 45 [...] SHELIA PRATT Facility:[facility] Start: 07-10-2022 ambulatory CARMEN PRATT Facjose luis lity:Too [facility]RAN Start: 07-06-2022 End: [...] 05-02-2023 ambulatory Ambulatory Facility:[facility] 1 Start: 04-18-2023 [facility] Patient Education Hemorrhoids (DC) [facility] Work Phone: Payers Date Payer Category Payer Self-pay [id number] 2014 Unknown [id number] 1970 Unknown [id number] 2.16.8 40.1.252845.3.579.2.727 1970 Unknown [id number] 2.16.84 0.1.107548.3.579.2.593 1970 Unknown [id number] 2.16.84 0.1.521177.3.579.2.593 1970 Unknown [id number] 2.16.84 0.1.436318.3.579.2.593 1970 Unknown [id number] 2.16.84 0.1.079742.3.579.2.593 1970 Unknown [id number] 2.16.84 0.1.703744.3.579.2.593 1970 Unknown [id number] 2.16.84 0.1.020814.3.579.2.593 1969 Unknown [id number] 2.16.84 0.1.930205.3.579.2.593 1970 Unknown [id number] 2.16.84 0.1.433358.3.579.2.593 1970 Unknown [id number] 2.16.84 0.1.113673.3.579.2.593 1970 Unknown [id number] 2.16.84 0.1.297273.3.579.2.593 1970 Unknown [id number] 2.16.84 0.1.245313.3.579.2.593 1970 Unknown [id number] 2.16.84 0.1.437932.3.579.2.593 1969 Unknown [id number] 2.16.84 0.1.552752.3.579.2.593 1969 Unknown [id number] 2.16.84 0.1.299464.3.579.2.593 1970 Unknown [id number] 2.16.84 0.1.079513.3.579.2.593 1970 Unknown [id number] 2.16.84 0.1.391527.3.579.2.593 1970 Unknown [id number] 2.16.84 0.1.397018.3.579.2.593 1969 Unknown [id number] 2.16.84 0.1.279215.3.579.2.593 1969 Unknown [id number] 2.16.84 0.1.780793.3.579.2.593 1970 Unknown [id number] 2.16.84 0.1.815754.3.579.2.593 1970 Unknown [id number] 2.16.84 0.1.606144.3.579.2.593 1970 Unknown [id number] 2.16.84 0.1.918697.3.579.2.593 1969 Unknown [id number] 2.16.84 0.1.107579.3.579.2.593 1970 Unknown [id number] 2.16.84 0.1.734223.3.579.2.593 1970 Unknown [id number] 2.16.840 .1.353598.3.579.2.1259 1960 Medicaid [id number] 1960 Medicare [id number] Medicare Medicare Outpatient [id number] Unknown [id number] 2.16.8 40.1.134399.3.579.2.531 Unknown [id number] 2.16.8 40.1.791831.3.579.2.531 Social History Date Type Detail Facility Sex Assigned At [email or web address] Other Start: 04-18-2023 End: 04-18-2023 Tobacco smoking status [facility] Ex-smoker (finding) [facility] Start: 1970 Sex Assigned At Male F [facility] Goals Date Patient Goal Desired Activity /State [...] Carpal tunnel syndrome, left (ICD-10 - G56.02) [email or web address] Other 08-29-2023 Evaluation note* Encounter Date Diagnosis Assessment Notes Treatment Notes Treatment Clinical Notes May, Diarrhea (ICD-10 - R19.7) May, Exocrine pancreatic insufficiency (ICD-10 - K86.81) [email or web address] Other [facility]* Encounter Date Diagnosis Assessment Notes Treatment Notes Treatment Clinical Notes February, Diarrhea (ICD-10 - R19.7) February, Pancreatic insufficiency (ICD-10 - K86.89) February, Weight loss (ICD-10 - R63.4) [email or web address] Other 04-20-2023 NoteCONSULTATION CONSULTATION DATE: 01/31/2023 TO: [...] our patients to inform us about any ysva-ppm-eojiado medications or herbal remedies/nutritional supplements/alternative remedies. 2. [...] treatment options with their primary care provider.[id number] Note CONSULTATION CONSULTATION DATE: 11/01/2022 HISTORY OF [...] otherwise indicated. Patient agrees with this plan.[id number] Note CONSULTATION CONSULTATION DATE: 09/27/2022 HISTORY OF [...] be followed up in the clinic thereafter.[facility] 09-12-2022 NoteCONSULTATION CONSULTATION DATE: 09/12/2022 HISTORY OF [...] of care and all questions were answered.[id number] NoteCONSULTATION PROCEDURE DATE: 08/09/2022 PREOPERATIVE DIAGNOSIS: Bilateral [...] in the clinic in three months' time.[facility] [id number] NoteCONSULTATION CONSULTATION DATE: 08/09/2022 HISTORY OF PRESENT [...] and patient is in agreement with this.[facility] 05-10-2022 NoteCONSULTATION CONSULTATION DATE: 05/10/2022 HISTORY OF [...] otherwise indicated. Patient agrees with the plan.[facility] Evaluation noteNo assessment information availableVan [facility] Work Phone: History and physical note Author Jhon Medina [facility] April 18, 2023 1:56pm Note Date/Time April 18, 2023 1:56p [facility] ENTER [address] [place] [address] Gastroenterology H&P Signed Patient: Kalani Asencio MR#: [id number] : 1970 Acct:[id number] Age/Sex: 53 / M Adm Date: 3 Loc: Room: Type: [facility] Attending Dr: Jhon Medina MD Copies to: [...] signed by Jhon Medina MD> 04/18/23 1356 [facility] Work Phone: Hisejiz general Narrative - Reported* Type Description Date Medical History Asthma Medical History Depression Medical History Seasonal Allergies Medical History seizure disorder Surgical History Back surgery 2009 Surgical History bilat knee surgies 2008 [email or web address] Other [facility] general Narrative - Reported* Type Description Date Medical History Asthma Medical History Depression Medical History Seasonal Allergies Medical History seizure disorder Medical History anxiety Surgical History Back surgery 2009 Surgical History bilat knee surgies 2008 Hospitalization History see above [email or web address] Other Hospital Discharge instructions Additional Instructions DISCHARGE [...] NOT operate machinery such as power tools, [employer] mowers, snow blowers, sewing machines, etc. for [...] scheduled -Follow up with PCP. -Office number [phone]. [facility] Work Phone: Reason for visit NarrativePATIENT IS HERE FOR DIARRHEA AND PANCREATIC INSUFFICIENCY AT THE REQUEST OF CARMEN PRATT. RECENT TESTING IN REFERRAL [facility] [employer] Other Summary Purpose Family History No Family [...] No March 05 8:18am Hospital Course Note [facility] SURGERY Clinical Discharge Summary PERSON INFORMATION Name KALANI ASENCIO Age 50 Years 1970 Sex MALE Language Zambian PCP Marcia Rodriguez DO Marital Status Med Service Pain Management Surgery Acct# Arrival 03/30/2020 08:43:00 Visit Reason Low back pain Acuity LOS 006 00:00 Address: [address] [place] [address] Comment: PROVIDER INFORMATION VITALS INFORMATION Vital Sign [...] history): All Problems Depression / SNOMED CT 397226588 / Confirmed Asthma / SNOMED CT 804476509 / Confirmed Chronic maxillary sinusitis / SNOMED CT 66670629 / Confirmed Epileptic seizures / SNOMED CT 687003728 / Confirmed Lumbago / SNOMED CT 196599739 / Confirmed Lumbar spondylosis / SNOMED CT 149264600 / Confirmed Physical Examination VS/Measurements Vital Signs [...] history): All Problems Depression / SNOMED CT 453677575 / Confirmed Asthma / SNOMED CT 021180036 / Confirmed Chronic maxillary sinusitis / SNOMED CT 33364179 / Confirmed Epileptic seizures / SNOMED CT 901759120 / Confirmed Lumbago / SNOMED CT 957676122 / Confirmed Lumbar spondylosis / SNOMED CT 069514223 / Confirmed Physical Examination VS/Measurements Vital Signs [...] 1 Cervical pain (neck) (M54.2) Referral Organization [facility] urosurgery Referring Provider First Name Jemal Referring Provider Last Name Ho Referring Provider Specialty Neurologica l Surgery Referred Organization [facility] Referred Provider Tori Sanchez Referred Address [address] [place], [place],[address] Referred Provider Specialty Pain Medicin e Referral Priority Routine Additional Source Comments (unrecognized sect ion and content) No Status Records FoundNo Status Records FoundNo Status Records FoundNo Status Records FoundNo Status Records Found INFORMATION SOURCE (unrecogn ized section and content) DATE CREATED AUTHOR 04/30/2020 [facility] DATE CREATED AUTHOR AUTHOR'S ORGANIZ ATION 08/07/2022 [facility] DATE CREATED AUTHOR AUTHOR'S ORGANIZ ATION 03/22/2023 [facility] DATE CREATED AUTHOR AUTHOR'S ORGANIZ ATION 09/05/2023 [facility] DATE CREATED AUTHOR AUTHOR'S ORGANIZ ATION 10/11/2023 [facility] EPIC Care Teams (unrecognized sec [...] BE BASED ON THE PRIMARY CLINICAL RECORDS. [employer] provides no warranty or guarantee of the accuracy or completeness of information in this document.
[2023-11-19 08:52] VITALS: BP 108/70; PULSE 52; RESP 16; TEMP 36.4; O2SAT 99
[2023-11-19 09:57] VITALS: BP 117/76; PULSE 51; RESP 18; O2SAT 96
[2023-11-19] MEDS: LIDOCAINE HCL 2% PF 100 MG/5 ML VIAL INJ (09:57)
[2023-11-19] MEDS: DEXAMETHASONE SOD PHOS 10 MG/ML VIAL INJ (09:57)
[2023-11-19] MEDS: IOHEXOL 240 MG/ML - 10 ML VIAL INJ (09:57)
[2023-11-19] MEDS: BUPIVACAINE HCL 0.25% PF 25 MG/10 ML VIAL INJ (09:57)
[2023-11-19] MEDS: 0.9 % SODIUM CHLORIDE 10 ML SYRINGE - SALINE FLUSH INJ (09:57)
[2023-11-19 09:58] VITALS: BP 115/73; PULSE 52; O2SAT 98
--- NOTE | 2023-11-19 10:04 | P.ON_ITS ---
Date of procedure: 11/19/23 Pre-op diagnosis: Cervical Radiculopathy Post-op diagnosis: same as pre-op Procedure: Cervical 6/7 Epidural Steroid Injection Under fluoroscopic guidance Immediate complications none Solution used for injection: Marcaine 0.25% 2mL, 2cc Normal saline, Dexamethaso ne 10mg Omnipaque 3 mL Anesthesia local 2% lidocaine up to 4ml Timeout process compliant After informed consent obtained. Patient brought to the procedure room placed in the prone position. Skin overlying the area was prepped and draped in a sterile fashion using betadine. 25 gauge needle used to raise a skin wheel with local anesthetic over the target area identified under fluoroscopy. A 17 gauge Touhy needle Was inserted over the anesthetized area and directed towards the inter- space under fluoroscopic guidance. Epidural space was identified with loss of resistance technique to air. Needle Tip placement confirmed with injection of contrast solution. Steroid solution was then injected. Anesthesia: Local Surgeon: Esteban Sanchez Condition: stable
== END 2023-11-19 10:07 | disposition home or self-care (01) ==
LOC: SURGOUT 08:41
PROVIDERS: PCP Nurse Practitioner; Visit Provider Anesthesiology Pain Medicine
DX: M54.12 Radiculopathy, cervical region (principal)
CPT/HCPCS: 62321; J0665; J1100; Q9966

== ENCOUNTER 2023-12-05 13:52 | Outpatient (OUT) | payer MEDICARE, MEDICAID, SELFPAY ==
--- NOTE | 2023-12-05 14:07 | P.CN_ITS ---
Consult Note: HPI Data of Consult Patient: known to practice within the last 3 years Requesting Physician: Renetta Blood NP Primary Care Provider: Carmen Pratt NP Consult Narrative Reason for consult: establish for neck pain Narrative: Nabeel Asencio a pleasant 53 year old male presents for evaluation and management of chronic neck pain from Dr Teague. Patient also diagnosed with left CTS by Dr Teague but is not following with anyone for this. Pain today 11/23 . Currently on zonisamide 100mg HS, sertraline 100mg HS, and diclofenac 75mg HS with mild benefit. MRI of cervical spine consistent with stenosis, DDD, and facet arthropathy. Patient deemed nonsurgical by Dr Teague. cc:: CC: Renetta Blood NP Review of Systems ROS Status of ROS 10 or more systems reviewed and unremark able except as noted in history and below Musculoskeletal Reports: neck pain PFSH PFSH Medical History Seizures ?R56.9 - Unspecified convulsions (ICD-10) Sleep apnea ?G47.30 - Sleep apnea, unspecified (ICD-10) Asthma ?J45.909 - Unspecified asthma, uncomplicated (ICD-10) Social History Smoking status: Former smoker Meds Home Medications and Allergies Home Medications Medication Instructions Recorded Confirmed Type albuterol 90 mcg/actuation aerosol 90 mcg inhalation .q6 PRN wheezing 05/16/23 11/19/23 History inhaler diclofenac sodium 75 mg 75 mg PO BID 05/16/23 11/19/23 History tablet,delayed release levetiracetam 500 mg tablet 500 mg PO DAILY 05/16/23 11/19/23 History mirtazapine 15 mg tablet (Remeron) 15 mg PO DAILY 05/16/23 11/19/23 History primidone 50 mg tablet 50 mg PO DAILY 05/16/23 11/19/23 History zonisamide 100 mg capsule 200 mg PO BEDTIME 05/16/23 11/19/23 History albuterol sulfate 90 mcg/actuation 2 inh inhalation Q6H PRN shortness 06/13/23 11/19/23 History aerosol inhaler of breath or wheezing biotin 10,000 mcg capsule 10,000 mcg PO DAILY 06/13/23 11/19/23 History calcium carbonate 600 mg-vitamin 1 tab PO DAILY 06/13/23 11/19/23 History D3 20 mcg (800 unit) tablet acxfyb-wwgwmadc-sxhyfui 1 cap PO TID 06/13/23 11/19/23 History 24,000-76,000-120,000 unit capsule,delayed rel (Creon) magnesium oxide 400 mg PO DAILY 06/13/23 11/19/23 History melatonin 3 mg capsule 3 mg PO DAILY 06/13/23 11/19/23 History montelukast 10 mg tablet 10 mg PO DAILY 06/13/23 11/19/23 History pantoprazole 40 mg tablet,delayed 40 mg PO DAILY 06/13/23 11/19/23 History release sertraline 50 mg tablet 50 mg PO DAILY 06/13/23 11/19/23 History tizanidine 2 mg capsule (Zanaflex) 2 mg PO Q8H PRN pain, muscle 09/11/23 11/19/23 Rx spasms #14 caps nirmatrelvir 300 mg (150 mg See Rx Instructions PO .COMPLEX 11/04/23 11/19/23 Rx x2)-ritonavir 100 mg tablet,dose #30 ea pack (Paxlovid) Allergies Allergy/AdvReac Type Severity Reaction Status Date / Time bee venom protein (honey bee) Allergy Mild Verified 11/19/23 08:59 latex Allergy Verified 11/19/23 08:59 Exam Constitutional Documenting provider has reviewed patient's vital signs: yes Common normals: no apparent distress, oriented x3, healthy appearing, alert and well nourished General appearance: cooperative [facility] Common normals: normocephalic, hearing grossly normal bilaterally and moist oral mucous membranes Head and scalp: normocephalic Eye Common normals: PERRL Pupil: PERRL Neck & C-Spine Common normals: full ROM General: normal visual inspection Cervical spine: pain with cervical ROM Other: negative Spurling bilaterally strength 5/5 in BUE sensation intact Chest Common normals: inspection of chest normal Respiratory Common normals: normal respiratory effort, no retractions and no use of accessory muscles Back & Pelvis Lumbar spine/lower back: lumbar ROM normal Sacroiliac joints: SI joints normal Extremity Common normals: normal to inspection and full ROM Other: left sided positive phalens, tinnels, finklesteins test Neuro Common normals: oriented x3, CN's II-XII intact bilaterally, moves all extremities, no focal motor deficits, no sensory deficits noted and deep tendon reflexes 2+ bilaterally Sensorium/orientation: alert Motor exam: strength 5/5 throughout and no movement abnormalities noted Psych Common normals: mental status grossly normal, thought process normal, cooperative, affect normal, speech normal and activity/motor behavior normal Speech: normal speech Thought process: normal thought process Results Additional Findings Additional findings: I have checked an [facility] report on this patient today and there are no aberrancies noted in the prescribing history.?? A drug screen was completed and reviewed within the last year, and if there has not been a drug screen completed we ordered one today to monitor higher risk, state monitored pain medication use. As part of providing excellent, safe, comprehensive care, the following was completed at our patient's visit: 1. A medication reconciliation and review to ensure accurate knowledge of current/active medications, including asking our patients to inform us about any rous-cfd-fulltrf medications or herbal remedies/nutritional supplements/alternative remedies. 2. A review to specifically ensure our patients have had annual screening for: elevated body mass index (BMI), tobacco use, screening for depression, and screening for unhealthy alcohol use. When screening is concerning, patients are provided with education and the specific recommendation to discuss the concerning health issue and treatment options with their primary care provider. Assessment and Plan Assessment and Plan (1) Cervical spinal stenosis: (2) Cervical radiculopathy: (3) Carpal tunnel syndrome of left wrist: Plan C6-7 BENITO under fluoroscopy with Dr Sanchez providing 80% ongoing relief Referral to Dr Contreras for Left CTS, planning to see next month continue current medications f/u 3 months, consider cervical facet blocks
== END 2023-12-05 13:53 | disposition home or self-care (01) ==
LOC: PM 13:52
PROVIDERS: PCP Nurse Practitioner; Visit Provider Nurse Practitioner
DX: M48.02 Spinal stenosis, cervical region (principal); M54.12 Radiculopathy, cervical region; G56.02 Carpal tunnel syndrome, left upper limb
CPT/HCPCS: G0463

== ENCOUNTER 2023-12-16 10:22 | Outpatient (OUT) | payer MEDICARE, MEDICAID, SELFPAY ==
--- NOTE | 2023-12-16 | XR_ITS ---
The [address] [address] Patient Name: KALANI UGARTE MRN: [id number] date: 1970 Sex: M Assigned Patient Location: Current Patient Location: Accession/Order Number: [id number] Exam Date: 12/16/2023 10:32 Report Date: 12/16/2023 11:24 At the request of: NOEMÍ JOHNSON Procedure: XR hand ANJANA min 3v EXAMINATION: XR hand ANJANA min 3v HISTORY: BILATERAL HAND PAIN COMPARISON: No relevant comparison available. FINDINGS: RIGHT FINDINGS: BONES: Normal. No significant arthropathy or acute abnormality. SOFT TISSUES: Negative. No visible soft tissue swelling. OTHER: Negative. LEFT FINDINGS: BONES: Normal. No significant arthropathy or acute abnormality. SOFT TISSUES: Negative. No visible soft tissue swelling. OTHER: Negative. XR/XR hand ANJANA min 3v IMPRESSION: RIGHT CONCLUSION: No acute abnormality LEFT CONCLUSION: No acute abnormality Electronically authenticated by: JARETT GARCÍA Date: 12/16/2023 11:24
--- OUTSIDE RECORDS SUMMARY | 2023-12-16 10:25 | XMS_ITS | CCD ---
Author Name Unknown Address [address] [place] [address] Organization [facility] Care Team Providers Care Associate Professor Of Chemistry Name Role Phone CARMEN PRATT J Referring UnavailTarsha Mccrary Attending Unavailable AICHHOLZ, PLANNER INTERNSHIP CARMEN Consulting Unavailable AICHHOLZ, PLANNER INTER[employer] CARMEN Primary Care Unavailable AICHHOLZ, PLANNER INTERNSH[employer] CARMEN Admitting Unavailable AICHHOLZ, PLANNER INTERNSH[employer] CARMEN Attending Unavailable GALO ., DR HANY Holder Admitting Unavailable GALO ., DR HANY Holder Attending Unavailable AICHHOLZ, PL[employer] INTER[employer] CARMEN Primary Care Unavailable JEFFERSON ., STACY Consulting Unavailable JEFFERSON ., STACY Consulting Unavailable GALO ., DR HANY Holder Admitting Unavailable GALO ., DR HANY Holder Attending Unavailable AICHHOLZ, PL[employer] INTERNSH[employer] CARMEN Primary Care Unavailable JEFFERSON ., STACY Admitting Unavailable JEFFERSON ., STACY Attending Unavailable AICHHOLZ, PL[employer] CARMEN Primary Care Unavailable WEST, DR JARETT Long Consulting Unavailable JEFFERSON ., STACY Consulting Unavailable AICHHOLZ, PL[employer] INTER[employer] CARMNE Primary Care Unavailable AICHHOLZ, PL[employer] CARMEN Admitting Unavailable AICHHOLZ, PL[employer] CARMEN Attending Unavailable AICHHOLZ, PL[employer] CARMEN Consulting Unavailable ALBERTO REDMAN Consulting Unavailable JEFFERSON ., STACY Consulting Unavailable GALO ., DR HANY Holder Admitting Unavailable GALO ., DR HANY Holder Attending Unavailable AICHHOLZ, [employer] CARMEN Primary Care Unavailable JEFFERSON ., STACY Consulting Unavailable GALO .DR HANY Admitting Unavailable GALO ., DR HANY Holder Attending Unavailable AICHHOLZ, PL[employer] CARMEN Primary Care Unavailable AICHHOLZ, PL[employer]NS[employer] CARMEN Consulting Unavailable AICHHOLZ, PL[employer]NS[employer] CARMEN Primary Care Unavailable AICHHOLZ, PLANNER INTERNSHIP CARMEN Admitting Unavailable AICHHOLZ, PLANNER INTERNSHIP CARMEN Attending Unavailable AICHHOLZ, PLANNER INTERNSHIP CARMEN Admitting Unavailable AICHHOLZ, PL[employer]NER INTERNSH[employer] CARMEN Primary Care Unavailable AICHHOLZ, PL[employer] CARMEN Attending Unavailable AICHHOLZ, PL[employer] CARMEN Consulting Unavailable AICHHOLZ, PL[employer] CARMEN Consulting Unavailable AICHHOLZ, PL[employer] CARMEN Primary Care Unavailable AICHHOLZ, PL[employer] CARMEN Attending Unavailable AICHHOLZ, PL[employer] CARMEN Admitting Unavailable LOWE, DAVID Admitting Unavailable LOWE, DAVID Attending Unavailable AICHHOLZ, [employer] CARMEN Primary Care Unavailable DR NOEMÍ MORRISON Consulting Unavailable LOWE, DAVID Consulting Unavailable AICHHOLZ, [employer] CARMEN Primary Care Unavailable AICHHOLZ, PL[employer] CARMEN Attending Unavailable AICHHOLZ, PL[employer] INTERNS[employer] CARMEN Consulting Unavailable AICHHOLZ, PLANNER INTERNSHIP CARMEN Admitting Unavailable AICHHOLZ, PL[employer]NER INTERNSH[employer] CARMEN Consulting Unavailable AICHHOLZ, PL[employer] CARMEN Primary Care Unavailable AICHHOLZ, PL[employer] CARMEN Attending Unavailable AICHHOLZ, PL[employer] CARMEN Admitting Unavailable JRAETT JARVIS Consulting Unavailable JESSE, APOORVA Admitting Unavailable JESSE, APOORVA Attending Unavailable AICHHOLZ, [employer] CARMEN Primary Care Unavailable JESSE, APOORVA Consulting Unavailable LAKSHMIPATHY ., NARENDRANATH Admitting Letty vailable LAKSHMIPATHY ., NARENDRANATH Attending Letty vailable AICHHOLZ, [employer] CARMEN Primary Care Unavailable COURTNEY STERLING Consulting Unavailable DR JARETT GARCÍA V Consulting Unavailable AICHHOLZ, PL[employer] CARMEN Primary Care Unavailable AICHHOLZ, PL[employer] CARMEN Admitting Unavailable AICHHOLZ, PL[employer] CARMEN Attending Unavailable AICHHOLZ, PL[employer] INTERNSHIP CARMEN Consulting Unavailable AICHHOLZ, PL[employer] CARMEN Consulting Unavailable AICHHOLZ, PL[employer]NER INTER[employer] CARMEN Admitting Unavailable AICHHOLZ, PL[employer] CARMEN Attending Unavailable AICHHOLZ, PL[employer] CARMEN Primary Care Unavailable ILYA, NERI Admitting Unavailable ILYA, NERI Attending Unavailable AICHHOLZ, PL[employer] CARMEN Primary Care Unavailable NERI CARABALLO Consulting Unavailable DANIELLE KWONG Consulting Unavailable AICHHOLZ, PL[employer] CARMEN Consulting Unavailable AICHHOLZ, PL[employer] CARMEN Primary Care Unavailable AICHHOLZ, PL[employer] CARMEN Admitting Unavailable AICHHOLZ, PL[employer] CARMEN Attending Unavailable DR NOEMÍ MORRISON Consulting Unavailable LI .STACY Consulting Unavailable GALO ., DR HANY Holder Admitting Unavailable GALO ., DR HANY Holder Attending Unavailable AICHHOLZ, PL[employer] CARMEN Primary Care Unavailable GALO ., DR HANY Holder Consulting Unavailable GALO ., DR HANY Holder Admitting Unavailable GALO ., DR HANY Holder Attending Unavailable AICHHOLZ, PL[employer] CARMEN Primary Care Unavailable KARINA ., ELIAS Admitting Unavailable KARINA ., ELIAS Attending Unavailable AICHHOLZ, PL[employer] CARMEN Primary Care Unavailable KARINA ., ELIAS Consulting Unavailable CATHY DE PAZ Consulting Unavaila ble AICHHOLZ, [employer] CARMEN Primary Care Unavailable WEST, DR JARETT Long Consulting Unavailable AICHHOLZ, PL[employer] CARMEN Admitting Unavailable AICHHOLZ, PL[employer] CARMEN Attending Unavailable AICHHOLZ, PL[employer] CARMEN Consulting Unavailable HALKER ., COURTNEY Consulting Unavailable LAKSHMIPATHY ., NARENDRANATH Admitting Letty vailable LAKSHMIPATHY ., NARENDRANATH Attending Letty vailable AICHHOLZ, [employer] CARMEN Primary Care Unavailable Asaad, Imad Unavailable NON STAFF Primary Care Provider UnavailMD Jhon Campbell Attending Provider NON STAFF Primary Care Provider UnavailMD Jemal Conteh Attending Provider Jemal Teague Unavailable AICHHOLZ, CARMEN Attending Unavailable NON STAFF Primary Care Unavailable Jemal Teague Admitting Unavailable Jemal Teague Attending Unavailable Asaad, Imad Admitting Unavailable Asaad, Imad Attending Unavailable NON STAFF Primary Care Unavailable Allergies Allergy Classification Reported Allergen(s) Allergy Type Date of Onset Reaction(s) Facility (4 sources) Latex Drug allergy (disorder) 6 Rash [facility] Repository (3 sources) venom-honey bee; Translations: [venom-honey bee] Allergy to substance 3 Anaphylaxis [facility] (1 source) Latex Drug allergy Unknown IEV Other (1 source) Bee Sting Drug allergy Unknown [facility] Other (1 source) Latex Drug allergy (disorder) 3 [facility] Repository (1 source) bee venom protein (honey bee) Drug allergy (disorder) 3 [facility] Repository Medications Current Medications Medication Drug Class(es) Dates Sig (Normalized) Sig (Original) Albuterol (5 sources) beta2-Adrenergic Agonist Start: 03-11-2019 Albuterol Sulfate Active 2 PUFF INHALATION As Directed March 10, 2019 11:00pm Start: 03-11-2019 Albuterol Sulf ate Active 2 PUFF INHALATION As Directed March 11, 2019 12:00am Albuterol Active amylase 511755 unt / lipase 51432 unt / protease 92802 unt delayed release oral capsule (5 sources) Start: 04-18-2023 take 26689-88489 capsules by mouth three times daily Yqhdeq-Zbhsebpm-Qlsrfve (Creon) 24,000-76,000 -120,000 unit capsule,delayed release(DR/EC) Active 1 CAP PO Three times daily April 17, 2023 11:00pm biotin 10 mg oral capsule (2 sources) Start: 04-18-2023 take 66506 ug by mouth once daily at bedtime Biotin Active 09063 MCG PO Daily at bedtime April 17, [...] April 17, 2023 11:00pm polyethylene glycol 3350 711106 mg / potassium chloride 2970 mg / sodium bicarbonate 6740 mg / sodium chloride 5860 mg / sodium sulfate 45288 mg powder for oral solution (3 sources) [...] April 18, 2023 11:35am Start: 03-11-2019 End: 04-18-2023 take 1 puff(s) [...] tablet (5 sources) Nonergot Dopamine Agonist Start: End: take 0.25 mg by mouth once [...] 07-30-2022 Episodic Other aftercare (1 source) Other fpc (current) drug therapy; Translations: [OTH NURSING HOME CURRENT DRUG THERAPY] Onset: 09-13-2022 Episodic Other [...] on 08-27-2023 XR cervical spine w flex/ext [facility] [place] [address] XRay Report Signed Patient: Kalani Asencio MR#: [id number] 6 : 1970 Acct:[id number] Age/Sex: 53 / M ADM Date: 08/27/23 Loc: XD Room: Type: [facility] Attending Dr: Jemal Teague MD [...] C4-C6. Impression dictated by: Andi Hill Jr., D.O.08/27/2023 4:23 PM Dictation Location: [place] [address] Transcribed By: [facility] 08/27/231622 Dictated By: Andi Hill Jr, DO 08/27/231621 Signed By: 08/27/231622 [facility] Rafael 04-18-2023 L - -------- Specimen: [id number] Received: 04/19/23 Status: ANUM Castillo Num: [id number] Spec Type: Surgical Subm Dr: Jhon Medina MD Tissues: A Colon Biopsy (RANDOM COLON BX) Procedures: HE/2, Gross/Micro L4 -------- Age/ Patient Sex Location Account Attending Physician -------- Kalani Asencio 53/M [id number] Jhon Medina MD -------- SPEC NUM: [id number] RECD: 04/19/23 STATUS: ANUM CASTILLO NUM: [id number] LELE: 04/18/23- [facility] DR: Jhon Medina MD ENTERED: 04/19/23 [facility] DR: LUCY TYPE: Surgical DEPT: S ORDERED: [...] microscopic examination confirms the diagnosis. CPT Codes 34060 -------- -------- Specimen: [id number] Received: 04/19/23 Status: ANUM Jonathan Num: [id number] Spec Type: Surgical Subm Dr: Jhon Medina MD Tissues: A Colon Biopsy (RANDOM COLON BX) Procedures: Twin WIN/Yolanda L4 -------- Patient: Kalani Asencio [id number] (Continued) -------- Signed (signature on file) Warren De La O MD 04/22/23927 [facility] AMYLASEon 03-12-2023 Amylase [Catalytic activity/Vol] 42 U/L Normal 25-115 [facility] Comment on above: Performed By: #### T SH, LIPA, CMP, CHILANGO ####[facility] [address] [place], [place] [address]GqDr. Rakel Fraga CBC AUTO DIFFon 03-12-2023 BASO # 0.0 103/ul Normal 0.0-0.1 [facility] Comment on above: Performed By: #### U AMIC #### [facility] [address] [place] [address] [address] Rakel Fraga Basophils/100 WBC (Bld) 0.4 % Normal 0.2-2.0 [facility] Comment on above: Performed By: #### U AMIC #### [facility] [address] [address] [address] Rakel Fraga EO # 0.8 103/ul Critically high 0.0-0.7 [facility] Comment on above: Performed By: #### U AMIC #### [facility] [address] [address] [address] Rakel Fraga Eosinophils/100 WBC (Bld) 8.8 % Critically high 0.9-7.0 [facility] Comment on above: Performed By: #### U AMIC #### [facility] [address] [address] [address] Rakel Fraga Erythrocyte distribution width (RBC) [Ratio] 13.0 % Normal 11.0-15.0 [facility] Comment on above: Performed By: #### U AMIC #### [facility] [address] [address] [address] Rakel Fraga Hematocrit (Bld) [Volume fraction] 44.1 % Normal 42.0-54.0 [facility] Comment on above: Performed By: #### U AMIC #### [facility] [address] [address] [address] Rakel Fraga Hemoglobin (Bld) [Mass/Vol] 14.2 g/dL Normal 14.0-18.0 [facility] Comment on above: Performed By: #### U AMIC #### [facility] [address] [address] [address] Rakel Fraga IG # 0.02 10e3/ul Normal 0.00-0.03 [facility] Comment on above: Performed By: #### U AMIC #### [facility] [address] [address] [address] Rakel Fraga IG % 0.2 % Normal 0.0-0.5 [facility] Comment on above: Performed By: #### U AMIC #### [facility] [address] [address] [address] Rakel Fraga LYMPH # 1.9 103/ul Normal 1.2-3.8 [facility] Comment on above: Performed By: #### U AMIC #### [facility] [address] [place] [address] Dr. Rakel Fraga Lymphocytes/100 WBC (Bld) 20.1 % Critically low 20.5-60.0 [facility] Comment on above: Performed By: #### U AMIC #### [facility] [address] [address] [address] Rakel Fraga MANUAL DIFF REQ NO Normal [facility] Comment on above: Performed By: #### U AMIC #### [facility] [address] [place] [address] Dr. Rakel Fraga MCH (RBC) [Entitic mass] 29.8 pg Normal 25.9-34.0 [facility] Comment on above: Performed By: #### U AMIC #### [facility] [address] [address] [address] Rakel Fraga MCHC (RBC) [Mass/Vol] 32.2 g/dL Normal 29.9-35.2 [facility] Comment on above: Performed By: #### U AMIC #### [facility] [address] [place] [address] Dr. Rakel Fraga MCV (RBC) [Entitic vol] 92.5 fL Normal 80.0-94.0 [facility] Comment on above: Performed By: #### U AMIC #### [facility] [address] [address] [address] Rakel Fraga MONO # 0.5 103/ul Normal 0.3-0.8 [facility] Comment on above: Performed By: #### U AMIC #### [facility] [address] [address] [address] Rakel Fraga Monocytes/100 WBC (Bld) 5.0 % Normal 1.7-12.0 [facility] Comment on above: Performed By: #### U AMIC #### [facility] [address] [address] [address] Rakel Fraga NEUT # 6.0 103/ul Normal 1.4-6.5 [facility] Comment on above: Performed By: #### U AMIC #### [facility] [address] [place] [address] Dr. Rakel Fraga Neutrophils/100 WBC (Bld) 65.5 % Normal 43.0-75.0 [facility] Comment on above: Performed By: #### U AMIC #### [facility] [address] [address] [address] Rakel Fraga Platelet mean volume (Bld) [Entitic vol] 9.4 fL Critically low 9.5-13.5 [facility] Comment on above: Performed By: #### U AMIC #### [facility] [address] [place] [address] Dr. Rakel Fraga PLT 284 103/ul Normal 150-450 [facility] Comment on above: Performed By: #### U AMIC #### [facility] [address] [place] [address] Dr. Rakel Fraga RBC 4.77 106/ul Normal 4.70-6.10 [facility] Comment on above: Performed By: #### U AMIC #### [facility] [address] [address] [address] Rakel Fraga WBC 9.2 103/ul Normal 4.0-11.0 [facility] Comment on above: Performed By: #### U AMIC #### [facility] [address] [address] [address] Rakel Fraga LIPASEon 03-12-2023 Lipase [Catalytic activity/Vol] 76.0 U/L Normal 73.0-393.0 [facility] Comment on above: Performed By: #### T SH, LIPA, CMP, CHILANGO ####[facility] [address] [place] [address]DrKailey Fraga PROF 14(COMP METB)on 023 Albumin [Mass/Vol] 3.4 g/dL Normal 3.4-5.0 [facility] Comment on above: Performed By: #### T SH, LIPA, CMP, CHILANGO ####[facility] [address] [place] [address]DrKailey Fraga Albumin/Globulin [Mass ratio] 0.8 {ratio} Normal [facility] Comment on above: Performed By: #### T SH, LIPA, CMP, CHILANGO ####[facility] [address] [place] [address]DrKailey Fraga ALP [Catalytic activity/Vol] 159 U/L Critically high 46-116 [facility] Comment on above: Performed By: #### T SH, LIPA, CMP, CHILANGO ####[facility] [address] [place] [address]DrKailey Fraga ALT [Catalytic activity/Vol] 24 U/L Normal 16-63 [facility] Comment on above: Performed By: #### T SH, LIPA, CMP, CHILANGO ####[facility] [address] [place] [address]DrKailey Fraga Anion gap [Moles/Vol] 12.2 mmol/L Normal [facility] Comment on above: Performed By: #### T SH, LIPA, CMP, CHILANGO ####[facility] [address] [place] [address]DrKailey Fraga AST [Catalytic activity/Vol] 16 U/L Normal 15-37 [facility] Comment on above: Performed By: #### T SH, LIPA, CMP, CHILANGO ####[facility] [address] [place] [address]Dr. Rakel Fraga Bilirubin [Mass/Vol] 0.2 mg/dL Normal 0.2-1.0 [facility] Comment on above: Performed By: #### T SH, LIPA, CMP, CHILANGO ####[facility] [address] [place] [address]Dr. Rakel Fraga Calcium [Mass/Vol] 8.9 mg/dL Normal 8.5-10.1 [facility] [place] Comment on above: Performed By: #### T SH, LIPA, CMP, CHILANGO ####[facility] [address] [place] [address]Dr. Rakel Fraga Chloride [Moles/Vol] 105 mmol/L Normal 98-107 [facility] Comment on above: Performed By: #### T SH, LIPA, CMP, CHILANGO ####[facility] [address] [place], [place] [address]Dr. Rakel Fraga CO2 [Moles/Vol] 28.7 mmol/L Normal 21.0-32.0 [facility] Comment on above: Performed By: #### T SH, LIPA, CMP, CHILANGO ####[facility] [address] [place], [place] [address]Dr. Rakel Fraga Creatinine [Mass/Vol] 1.27 mg/dL Normal 0.70-1.30 [facility] Comment on above: Performed By: #### T SH, LIPA, CMP, CHILANGO ####[facility] [address] [place] [address]Dr. Rakel Fraga EGFR-AF TAJIK >60 Normal >=60 [facility] Comment on above: Performed By: #### T SH, LIPA, CMP, CHILANGO ####[facility] [address] [place], [place] [address]Dr. Rakel Fraga EGFR-NON AF TAJIK 59 mL/min/1.73m2 Critically low >=60 [facility] Comment on above: Performed By: #### T SH, LIPA, CMP, CHILANGO ####[facility] [address] [place] [address]Dr. Rakel Fraga Globulin (S) [Mass/Vol] 4.4 g/dL Normal [facility] Comment on above: Performed By: #### T SH, LIPA, CMP, CHILANGO ####[facility] [address] [place] [address]Dr. Rakel Fraga Glucose [Mass/Vol] 95 mg/dL Normal 74-106 [facility] [place] Comment on above: Performed By: #### T SH, LIPA, CMP, CHILANGO ####[facility] [address] [place] [address]Dr. Rakel Fraga Potassium [Moles/Vol] 3.9 mmol/L Normal 3.5-5.1 [facility] Comment on above: Performed By: #### T SH, LIPA, CMP, CHILANGO ####[facility] [address] [place], [place] [address]Dr. Rakel Fraga Protein [Mass/Vol] 7.8 g/dL Normal 6.4-8.2 [facility] [place] Comment on above: Performed By: #### T SH, LIPA, CMP, CHILANGO ####[facility] [address] [place], [place] [address]Dr. Rakel Fraga Sodium [Moles/Vol] 142 mmol/L Normal 136-145 [facility] [place] Comment on above: Performed By: #### T SH, LIPA, CMP, CHILANGO ####[facility] [address] [place], [place] [address]Dr. Rakel Fraga Urea nitrogen [Mass/Vol] 14.0 mg/dL Normal 7.0-18.0 [facility] Comment on above: Performed By: #### T SH, LIPA, CMP, CHILANGO ####[facility] [address] [place], [place] [address]Dr. Rakel Fraga Urea nitrogen/Creatinine [Mass ratio] 11.0 mg/mg Normal [facility] Comment on above: Performed By: #### T SH, LIPA, CMP, CHILANGO ####[facility] [address] [place], [place] [address]Dr. Rakel Fraga SED RATE [facility] 2022 SED RATE 17 mm/hr Normal <=20 [facility] Comment on above: Performed By: #### U AMIC #### [facility] [address] [address] [address] Rakel Fraga TSHon 03-12-2023 TSH 0.793 uIU/mL Normal 0.358-3.740 [facility] Comment on above: Performed By: #### T SH, LIPA, CMP, CHILANGO ####[facility] [address] [place] [address]Dr. Rakel Fraga UA RANDOM W/MICROSCOPICon BACTERIA NONE SEEN Normal NONE SEEN [facility] Comment on above: Performed By: #### B MP #### [facility] [address] [place] [address] Dr. Rakel Fraga Bilirubin Ql (U) Negative Normal NEGATIVE [facility] Comment on above: Performed By: #### B MP #### [facility] [address] [place] [address] Dr. Rakel Fraga CAST NONE SEEN Normal NONE SEEN [facility] Comment on above: Performed By: #### B MP #### [facility] [address] [place] [address] Dr. Rakel Fraga Clarity (U) CLEAR Normal CLEAR [facility] Comment on above: Performed By: #### B MP #### [facility] [address] [place] [address] Dr. Rakel Fraga Color (U) LT. YELLOW Normal YELLOW [facility] Comment on above: Performed By: #### B MP #### [facility] [address] [address] [address] Rakel Fraga Crystals LM Nom (Urine sed) NONE SEEN Normal NONE SEEN [facility] Comment on above: Performed By: #### B MP #### [facility] [address] [place] [address] Dr. Rakel Fraga Epithelial cells LM Ql (Urine sed) NONE SEEN Normal NONE SEEN /RARE [facility] Comment on above: Performed By: #### B MP #### [facility] [address] [place] [address] Dr. Rakel Fraga Glucose Ql (U) Negative Normal NEGATIVE [facility] Comment on above: Performed By: #### B MP #### [facility] [address] [address] [address] Rakel Fraga Hemoglobin Ql (U) Negative Normal NEGATIVE [facility] Comment on above: Performed By: #### B MP #### [facility] [address] [address] [address] Rakel Fraga Ketones Ql (U) Negative Normal NEGATIVE [facility] Comment on above: Performed By: #### B MP #### [facility] [address] [address] [address] Rakel Fraga LEUKOCYTES Negative Normal NEGATIVE [facility] Comment on above: Performed By: #### B MP #### [facility] [address] [address] [address] Rakel Fraga MUCOUS NONE SEEN Normal NONE SEEN [facility] Comment on above: Performed By: #### B MP #### [facility] [address] [address] [address] Rakel Fraga Nitrite Ql (U) Negative Normal NEGATIVE [facility] Comment on above: Performed By: #### B MP #### [facility] [address] [address] [address] Rakel Fraga pH (U) 5.5 [pH] Normal 5-9 [facility] Comment on above: Performed By: #### B MP #### [facility] [address] [address] [address] Rakel Fraga RBC 0-2 Normal 0-2 [facility] Comment on above: Performed By: #### B MP #### [facility] [address] [address] [address] Rakel Fraga SPEC GRAVITY >=1.030 Abnormal 1.005-<=1.025 [facility] Comment on above: Performed By: #### B MP #### [facility] [address] [address] [address] Rakel Fraga UA PROTEIN Negative Normal NEGATIVE/ TRACE [facility] Comment on above: Performed By: #### B MP #### [facility] [address] [place] [address] Dr. Rakel Fraga Urobilinogen Qn (U) 0.2 {Arnoldo'U}/dL Normal 0.2 - 1. 0 [facility] Comment on above: Performed By: #### B MP #### [facility] [address] [place] [address] Dr. Rakel Fraga WBC NONE SEEN Normal NONE SEEN [facility] Comment on above: Performed By: #### B MP #### [facility] [address] [place] [address] Dr. Rakel Fraga XR KUB 1 VIEWon 03-12-2023 XR KUB 1 VIEW EXAMINATION: XR KUB 1 VIEW HISTORY: Abdominal pain COMPARISON: 02/23/2020 FINDINGS: BOWEL GAS PATTERN: No abnormal dilation or deviation. CALCIFICATIONS: None significant. OTHER: Negative. No abnormal gaseous collections. IMPRESSION: Normal bowel gas pattern Electronically authenticated by: JARETT GARCÍA Date: 2023-03-12 14:27 Normal [facility]on SARS-CoV-2 (COVID-19) RNA SHADIA+probe Ql (Unsp spec) Not detected Normal NOT DETECTED [facility] Comment on above: Result Comment: This test is not yet approved or cleared by the [place] FDA. When there are no FDA-approved or cleared tests available, and other criteria are met, FDA can make tests available under an emergency access mechanism called an Emergency Use Authorization (EUA). The EUA for this test is supported by the Claims Consultant of Health and Human Service's (HHS's) declaration [...] SARS-CoV-2. Performed By: #### B MP #### [facility] [address] [place] [address] Dr. Rakel Fraga INFLUENZA A AND B AGon 01-14 INFLUANEGH SEE BELOW Normal [facility] Comment on above: Result Comment: Nega tive for Flu A protein angiten. Infection due to Flu A cannot be ruled out. Flu A angiten in the sample may be below the detection limit of the test. Performed By: #### I NFLUAB #### [facility] [address] [place] [address] Dr. Rakel Fraga INFLUBNEGH SEE BELOW Normal [facility] Comment on above: Result Comment: Nega tive for Flu B protein antigen. Infection due to Flu B cannot be ruled out. Flu B antigen in the sample may be below the detection limit of the test. Performed By: #### I NFLUAB #### [facility] [address] [place] [address] Dr. Rakel Fraga INFLUENZA A AG Negative Normal NEGATIVE SEE COMMENT [facility] Comment on above: Performed By: #### I NFLUAB #### [facility] [address] [place] [address] Dr. Rakel Fraga INFLUENZA B AG Negative Normal NEGATIVE SEE COMMENT [facility] Comment on above: Performed By: #### I NFLUAB #### [facility] [address] [place] [address] Dr. Rakel Fraga SYMPTOMATIC COVID-19 ANTIGEN on 01-14-2023 EUA Statement SEE BELOW Normal [facility] Comment on above: Result Comment: [...] sooner. Performed By: #### U AMIC #### [facility] [address] [place] [address] Dr. Rakel Fraga SARS-CoV-2 (COVID-19) RNA SHADIA+probe Ql (Unsp spec) Negative Normal NEGATIVE [facility] Comment on above: Performed By: #### U AMIC #### [facility] [address] [place] [address] Dr. Rakel Fraga PANCREATIC ELASTASE FECALon 01-09-2023 Pancreatic Elastase, Fecal 90 ug Elast./g Critically low >200 [facility] Comment on above: Result Comment: Re sults verified by repeat testing Severe Pancreatic Insufficiency: <100 Moderate Pancreatic Insufficiency: 100 - 200 Normal: >200 Performed By: #### B MP #### [facility] [address] [place] [address] Dr. Rakel Fraga CBC AUTO DIFFon 01-07-2023 BASO # 0.0 103/ul Normal 0.0-0.1 [facility] Comment on above: Performed By: #### C BC #### [facility] [address] [place] [address] Dr. Rakel Fraga Basophils/100 WBC (Bld) 0.3 % Normal 0.2-2.0 [facility] Comment on above: Performed By: #### C BC #### [facility] [address] [place] [address] Dr. Rakel Fraga EO # 0.7 103/ul Normal 0.0-0.7 [facility] Comment on above: Performed By: #### C BC #### [facility] [address] [place] [address] Dr. Rakel Fraga Eosinophils/100 WBC (Bld) 11.6 % Critically high 0.9-7.0 [facility] Comment on above: Performed By: #### C BC #### [facility] [address] [place] [address] Dr. Rakel Fraga Erythrocyte distribution width (RBC) [Ratio] 13.5 % Normal 11.0-15.0 [facility] Comment on above: Performed By: #### C BC #### [facility] [address] [place] [address] Dr. Rakel Fraga Hematocrit (Bld) [Volume fraction] 44.3 % Normal 42.0-54.0 [facility] Comment on above: Performed By: #### C BC #### [facility] [address] [place] [address] Dr. Rakel Fraga Hemoglobin (Bld) [Mass/Vol] 14.4 g/dL Normal 14.0-18.0 [facility] Comment on above: Performed By: #### C BC #### [facility] [address] [place] [address] Dr. Rakel Fraga IG # 0.01 10e3/ul Normal 0.00-0.03 [facility] Comment on above: Performed By: #### C BC #### [facility] [address] [place] [address] Dr. Rakel Fraga IG % 0.2 % Normal 0.0-0.5 [facility] Comment on above: Performed By: #### C BC #### [facility] [address] [place] [address] Dr. Rakel Fraga LYMPH # 2.0 103/ul Normal 1.2-3.8 [facility] Comment on above: Performed By: #### C BC #### [facility] [address] [place] [address] Dr. Rakel Fraga Lymphocytes/100 WBC (Bld) 32.5 % Normal 20.5-60.0 [facility] Comment on above: Performed By: #### C BC #### [facility] [address] [place] [address] Dr. Rakel Fraga MANUAL DIFF REQ NO Normal [facility] Comment on above: Performed By: #### C BC #### [facility] [address] [place] [address] Dr. Rakel Fraga MCH (RBC) [Entitic mass] 29.8 pg Normal 25.9-34.0 [facility] Comment on above: Performed By: #### C BC #### [facility] [address] [place] [address] Dr. Rakel Fraga MCHC (RBC) [Mass/Vol] 32.5 g/dL Normal 29.9-35.2 [facility] Comment on above: Performed By: #### C BC #### [facility] [address] [place] [address] Dr. Rakel Fraga MCV (RBC) [Entitic vol] 91.5 fL Normal 80.0-94.0 [facility] Comment on above: Performed By: #### C BC #### [facility] [address] [place] [address] Dr. Rakel Fraga MONO # 0.4 103/ul Normal 0.3-0.8 [facility] Comment on above: Performed By: #### C BC #### [facility] [address] [place] [address] Dr. Rakel Fraga Monocytes/100 WBC (Bld) 7.1 % Normal 1.7-12.0 [facility] Comment on above: Performed By: #### C BC #### [facility] [address] [place] [address] Dr. Rakel Fraga NEUT # 2.9 103/ul Normal 1.4-6.5 [facility] Comment on above: Performed By: #### C BC #### [facility] [address] [place] [address] Dr. Rakel Fraga Neutrophils/100 WBC (Bld) 48.3 % Normal 43.0-75.0 [facility] Comment on above: Performed By: #### C BC #### [facility] [address] [place] [address] Dr. Rakel Fraga Platelet mean volume (Bld) [Entitic vol] 9.6 fL Normal 9.5-13.5 [facility] Comment on above: Performed By: #### C BC #### [facility] [address] [place] [address] Dr. Rakel Fraga PLT 222 103/ul Normal 150-450 [facility] Comment on above: Performed By: #### C BC #### [facility] [address] [place] [address] Dr. Rakel Fraga RBC 4.84 106/ul Normal 4.70-6.10 [facility] Comment on above: Performed By: #### C BC #### [facility] [address] [address] [address] Rakel Fraga WBC 6.0 103/ul Normal 4.0-11.0 [facility] Comment on above: Performed By: #### C BC #### [facility] [address] [address] [address] Rakel Fraga PROF 14(COMP METB)on 023 Albumin [Mass/Vol] 3.6 g/dL Normal 3.4-5.0 [facility] Comment on above: Performed By: #### C MP ####[facility] [address] [address]DrKailey Fraga Albumin/Globulin [Mass ratio] 1.0 {ratio} Normal [facility] Comment on above: Performed By: #### C MP ####[facility] [address] [address]DrKailey Fraga ALP [Catalytic activity/Vol] 140 U/L Critically high 46-116 [facility] Comment on above: Performed By: #### C MP ####[facility] [address] [address]DrKailey Fraga ALT [Catalytic activity/Vol] 23 U/L Normal 16-63 [facility] Comment on above: Performed By: #### C MP ####[facility] [address] [address]DrKailey Fraga Anion gap [Moles/Vol] 12.4 mmol/L Normal [facility] Comment on above: Performed By: #### C MP ####[facility] [address] [address]DrKailey Fraga AST [Catalytic activity/Vol] 19 U/L Normal 15-37 [facility] Comment on above: Performed By: #### C MP ####[facility] [address] [address]DrKailey Fraga Bilirubin [Mass/Vol] 0.2 mg/dL Normal 0.2-1.0 [facility] Comment on above: Performed By: #### C MP ####[facility] [address] [address]Dr. Rakel Fraga Calcium [Mass/Vol] 8.9 mg/dL Normal 8.5-10.1 [facility] Comment on above: Performed By: #### C MP ####[facility] [address] [address]Dr. Rakel Flakito Chloride [Moles/Vol] 111 mmol/L Critically high 98-107 [facility] Comment on above: Performed By: #### C MP ####[facility] [address] [place], [place] [address]Dr. Rakel Fraga CO2 [Moles/Vol] 27.8 mmol/L Normal 21.0-32.0 [facility] Comment on above: Performed By: #### C MP ####[facility] [address] [place], [place] [address]Dr. Rakel Flakito Creatinine [Mass/Vol] 1.26 mg/dL Normal 0.70-1.30 [facility] Comment on above: Performed By: #### C MP ####[facility] [address] [place], [place] [address]Dr. Rakel Flakito EGFR-AF TAJIK >60 Normal >=60 [facility] Comment on above: Performed By: #### C MP ####[facility] [address] [place], [place] [address]Dr. Rakel Flakito EGFR-NON AF TAJIK 60 mL/min/1.73m2 Normal >=60 [facility] Comment on above: Performed By: #### C MP ####[facility] [address] [place], [place] [address]Dr. Rakel Flakito Globulin (S) [Mass/Vol] 3.6 g/dL Normal [facility] Comment on above: Performed By: #### C MP ####[facility] [address] [place], [place] [address]Dr. Rakel Fraga Glucose [Mass/Vol] 118 mg/dL Critically high 74-106 [facility] Comment on above: Performed By: #### C MP ####[facility] [address] [address]Dr. Rakel Fraga Potassium [Moles/Vol] 4.2 mmol/L Normal 3.5-5.1 [facility] Comment on above: Performed By: #### C MP ####[facility] [address] [address]Dr. Rakel Fraga Protein [Mass/Vol] 7.2 g/dL Normal 6.4-8.2 [facility] Comment on above: Performed By: #### C MP ####[facility] [address] [address]DrKailey Fraga Sodium [Moles/Vol] 147 mmol/L Critically high 136-145 [facility] Comment on above: Performed By: #### C MP ####[facility] [address] [place], [place] [address]DrKailey Fraga Urea nitrogen [Mass/Vol] 17.0 mg/dL Normal 7.0-18.0 [facility] Comment on above: Performed By: #### C MP ####[facility] [address] [address]Dr. Rakel Fraga Urea nitrogen/Creatinine [Mass ratio] 13.5 mg/mg Normal [facility] Comment on above: Performed By: #### C MP ####[facility] [address] [id number]. Rakel Fraga SED RATE WESTERGRENon 2022 SED RATE 13 mm/hr Normal <=20 [facility] Comment on above: Performed By: #### S EDR ####[facility] [address] [id number]. Rakel Fraga STOOL CULTUREon 01-06-2023 Campylobacter Culture Final report Normal [facility] Comment on above: Performed By: #### C XSTOOL #### [facility] [address] [place] [address] Dr. Rakel Fraga E coli Shiga Toxin EIA Negative Normal Negative [facility] Comment on above: Performed By: #### C XSTOOL #### [facility] [address] [address] [address] Rakel Fraga Result 1 Comment Normal [facility] Comment on above: Result Comment: No S almonella or Shigella recovered. Performed By: #### C XSTOOL #### [facility] [address] [address] [address] Rakel Fraga Result Comment: No C ampylobacter species isolated. Salmonella/Shigella Screen Final report Normal [facility] Comment on above: Performed By: #### C XSTOOL #### [facility] [address] [place] [address] Dr. Rakel Fraga OVA AND PARASITE EXAMINATION on 01-04-2023 Ova + Parasite Exam Final report Normal [facility] Comment on above: Result Comment: Thes e results were obtained using wet preparation(s) and trichrome stained smear. This test does not include testing for Cryptosporidium parvum, Cyclospora, or Microsporidia. Performed By: #### B MP #### [facility] [address] [place] [address] Dr. Rakel Fraga Result 1 Comment Normal [facility] Comment on above: Result Comment: No o va, cysts, or parasites seen. . One negative specimen does not rule out the possibility of a parasitic infection. Performed By: #### B MP #### [facility] [address] [place] [address] Dr. Rakel Fraga C. DIFF PCRon 01-02-2023 C. DIFFICILE PCR Negative Normal NEGATIVE [facility] Comment on above: Performed By: #### U AMIC #### [facility] [address] [address] [address] Rakel Fraga OCC BLD IMMUNO SCREENon 12-13 OCCULT BLOOD Negative Normal NEGATIVE [facility] Comment on above: Performed By: #### U AMIC #### [facility] [address] [place] [address] Dr. Rakel Fraga LEVETIRACETAM, SERUM OR PLAS MAon 11-09-2022 Levetiracetam, S 20.0 ug/mL Normal 10.0-40.0 [facility] Comment on above: Performed By: #### U AMIC #### [facility] [address] [place] [address] Dr. Rakel Fraga ZONISAMIDEon 11-09-2022 Zonisamide 23.3 ug/mL Normal 10.0-40.0 [facility] Comment on above: Result Comment: Dete ction Limit = 2.0 Performed By: #### B MP #### [facility] [address] [place] [address] Dr. Rakel Fraga CBC AUTO DIFFon 11-07-2022 BASO # 0.1 103/ul Normal 0.0-0.1 [facility] Comment on above: Performed By: #### C BC #### [facility] [address] [place] [address] Dr. Rakel Fraga Basophils/100 WBC (Bld) 0.5 % Normal 0.2-2.0 [facility] Comment on above: Performed By: #### C BC #### [facility] [address] [place] [address] Dr. Rakel Fraga EO # 1.9 103/ul Critically high 0.0-0.7 [facility] Comment on above: Performed By: #### C BC #### [facility] [address] [place] [address] Dr. Rakel Fraga Eosinophils/100 WBC (Bld) 17.1 % Critically high 0.9-7.0 [facility] Comment on above: Performed By: #### C BC #### [facility] [address] [place] [address] Dr. Rakel Fraga Erythrocyte distribution width (RBC) [Ratio] 12.9 % Normal 11.0-15.0 [facility] Comment on above: Performed By: #### C BC #### [facility] [address] [place] [address] Dr. Rakel Fraga Hematocrit (Bld) [Volume fraction] 44.6 % Normal 42.0-54.0 [facility] Comment on above: Performed By: #### C BC #### [facility] [address] [address] [address] Rakel Fraga Hemoglobin (Bld) [Mass/Vol] 13.8 g/dL Critically low 14.0-18.0 [facility] Comment on above: Performed By: #### C BC #### [facility] [address] [place] [address] Dr. Rakel Fraga IG # 0.03 10e3/ul Normal 0.00-0.03 [facility] Comment on above: Performed By: #### C BC #### [facility] [address] [place] [address] Dr. Rakel Fraga IG % 0.3 % Normal 0.0-0.5 [facility] Comment on above: Performed By: #### C BC #### [facility] [address] [place] [address] Dr. Rakel Fraga LYMPH # 2.1 103/ul Normal 1.2-3.8 [facility] Comment on above: Performed By: #### C BC #### [facility] [address] [place] [address] Dr. Rakel Fraga Lymphocytes/100 WBC (Bld) 18.7 % Critically low 20.5-60.0 [facility] Comment on above: Performed By: #### C BC #### [facility] [address] [place] [address] Dr. Rakel Fraga MANUAL DIFF REQ NO Normal [facility] Comment on above: Performed By: #### C BC #### [facility] [address] [place] [address] Dr. Rakel Fraga MCH (RBC) [Entitic mass] 29.3 pg Normal 25.9-34.0 [facility] Comment on above: Performed By: #### C BC #### [facility] [address] [place] [address] Dr. Rakel Fraga MCHC (RBC) [Mass/Vol] 30.9 g/dL Normal 29.9-35.2 [facility] Comment on above: Performed By: #### C BC #### [facility] [address] [address] [address] Rakel Fraga MCV (RBC) [Entitic vol] 94.7 fL Critically high 80.0-94.0 [facility] Comment on above: Performed By: #### C BC #### [facility] [address] [address] [address] Rakel Fraga MONO # 0.6 103/ul Normal 0.3-0.8 [facility] Comment on above: Performed By: #### C BC #### [facility] [address] [place] [address] Dr. Rakel Fraga Monocytes/100 WBC (Bld) 5.4 % Normal 1.7-12.0 [facility] Comment on above: Performed By: #### C BC #### [facility] [address] [place] [address] Dr. Rakel Fraga NEUT # 6.4 103/ul Normal 1.4-6.5 [facility] Comment on above: Performed By: #### C BC #### [facility] [address] [place] [address] Dr. Rakel Fraga Neutrophils/100 WBC (Bld) 58.0 % Normal 43.0-75.0 [facility] Comment on above: Performed By: #### C BC #### [facility] [address] [place] [address] Dr. Rakel Fraga Platelet mean volume (Bld) [Entitic vol] 9.2 fL Critically low 9.5-13.5 [facility] Comment on above: Performed By: #### C BC #### [facility] [address] [place] [address] Dr. Rakel Fraga PLT 261 103/ul Normal 150-450 [facility] Comment on above: Performed By: #### C BC #### [facility] [address] [place], [place] [address] Dr. Rakel Fraga RBC 4.71 106/ul Normal 4.70-6.10 [facility] Comment on above: Performed By: #### C BC #### [facility] [address] [place], [place] [address] Dr. Rakel Fraga WBC 11.0 103/ul Normal 4.0-11.0 [facility] Comment on above: Performed By: #### C BC #### [facility] [address] [place] [address] Dr. Rakel Fraga PROF 14(COMP METB)on 023 Albumin [Mass/Vol] 3.6 g/dL Normal 3.4-5.0 [facility] Comment on above: Performed By: #### U AMIC #### [facility] [address] [place] [address] Dr. Rakel Fraga Albumin/Globulin [Mass ratio] 0.9 {ratio} Normal [facility] Comment on above: Performed By: #### U AMIC #### [facility] [address] [place] [address] Dr. Rakel Fraga ALP [Catalytic activity/Vol] 159 U/L Critically high 46-116 [facility] Comment on above: Performed By: #### U AMIC #### [facility] [address] [place] [address] Dr. Rakel Fraga ALT [Catalytic activity/Vol] 20 U/L Normal 16-63 [facility] Comment on above: Performed By: #### U AMIC #### [facility] [address] [place] [address] Dr. Rakel Fraga Anion gap [Moles/Vol] 11.4 mmol/L Normal [facility] Comment on above: Performed By: #### U AMIC #### [facility] [address] [place] [address] Dr. Rakel Fraga AST [Catalytic activity/Vol] 15 U/L Normal 15-37 [facility] Comment on above: Performed By: #### U AMIC #### [facility] [address] [place] [address] Dr. Rakel Fraga Bilirubin [Mass/Vol] 0.3 mg/dL Normal 0.2-1.0 [facility] Comment on above: Performed By: #### U AMIC #### [facility] [address] [place] [address] Dr. Rakel Fraga Calcium [Mass/Vol] 9.2 mg/dL Normal 8.5-10.1 [facility] Comment on above: Performed By: #### U AMIC #### [facility] [address] [address] [address] Rakel Fraga Chloride [Moles/Vol] 101 mmol/L Normal 98-107 [facility] Comment on above: Performed By: #### U AMIC #### [facility] [address] [address] [address] Rakel Fraga CO2 [Moles/Vol] 28.5 mmol/L Normal 21.0-32.0 [facility] Comment on above: Performed By: #### U AMIC #### [facility] [address] [place] [address] Dr. Rakel Fraga Creatinine [Mass/Vol] 1.07 mg/dL Normal 0.70-1.30 [facility] Comment on above: Performed By: #### U AMIC #### [facility] [address] [address] [address] Rakel Fraga EGFR-AF TAJIK >60 Normal >=60 [facility] Comment on above: Performed By: #### U AMIC #### [facility] [address] [place] [address] Dr. Rakel Fraga EGFR-NON AF TAJIK >60 Normal >=60 [facility] Comment on above: Performed By: #### U AMIC #### [facility] [address] [address] [address] Rakel Fraga Globulin (S) [Mass/Vol] 4.0 g/dL Normal [facility] Comment on above: Performed By: #### U AMIC #### [facility] [address] [address] [address] Rakel Fraga Glucose [Mass/Vol] 109 mg/dL Critically high 74-106 [facility] Comment on above: Performed By: #### U AMIC #### [facility] [address] [place] [address] Dr. Rakel Fraga Potassium [Moles/Vol] 3.9 mmol/L Normal 3.5-5.1 [facility] Comment on above: Performed By: #### U AMIC #### [facility] [address] [address] [address] Rakel Fraga Protein [Mass/Vol] 7.6 g/dL Normal 6.4-8.2 [facility] Comment on above: Performed By: #### U AMIC #### [facility] [address] [address] [address] Rakel Fraga Sodium [Moles/Vol] 137 mmol/L Normal 136-145 [facility] Comment on above: Performed By: #### U AMIC #### [facility] [address] [address] [address] Rakel Fraga Urea nitrogen [Mass/Vol] 11.0 mg/dL Normal 7.0-18.0 [facility] Comment on above: Performed By: #### U AMIC #### [facility] [address] [address] [address] Rakel Fraga Urea nitrogen/Creatinine [Mass ratio] 10.3 mg/mg Normal [facility] Comment on above: Performed By: #### U AMIC #### [facility] [address] [place] [address] Dr. Rakel Fraga US SINGLE QUAD RT [...] by: JARETT JARVIS Date: 2022-10-09 10:17 Normal [facility] MRI LSPINE WO CONon 09-17-20 MRI [...] by: JARETT GARCÍA Date: 2022-09-17 12:[address] [facility] CT ABD/PELVIS WO CONon 09-10 CT [...] as clinically indicated. Electronically authenticated by: DANIELLE KWONG Date: 2022-09-09 23:49 Normal [facility] CBC AUTO DIFFon 09-09-2022 BASO # 0.0 103/ul Normal 0.0-0.1 [facility] Comment on above: Performed By: #### U AMIC #### [facility] [address] [address] [address] Rakel Fraga Basophils/100 WBC (Bld) 0.4 % Normal 0.2-2.0 [facility] Comment on above: Performed By: #### U AMIC #### [facility] [address] [address] [address] Rakel Fraga EO # 0.3 103/ul Normal 0.0-0.7 [facility] Comment on above: Performed By: #### U AMIC #### [facility] [address] [address] [address] Rakel Fraga Eosinophils/100 WBC (Bld) 3.4 % Normal 0.9-7.0 [facility] Comment on above: Performed By: #### U AMIC #### [facility] [address] [address] [address] Rakel Fraga Erythrocyte distribution width (RBC) [Ratio] 13.0 % Normal 11.0-15.0 [facility] Comment on above: Performed By: #### U AMIC #### [facility] [address] [place] [address] Dr. Rakel Fraga Hematocrit (Bld) [Volume fraction] 43.8 % Normal 42.0-54.0 [facility] Comment on above: Performed By: #### U AMIC #### [facility] [address] [place] [address] Dr. Rakel Fraga Hemoglobin (Bld) [Mass/Vol] 14.6 g/dL Normal 14.0-18.0 [facility] Comment on above: Performed By: #### U AMIC #### [facility] [address] [place] [address] Dr. Rakel Fraga IG # 0.02 10e3/ul Normal 0.00-0.03 [facility] Comment on above: Performed By: #### U AMIC #### [facility] [address] [place] [address] Dr. Rakel Fraga IG % 0.2 % Normal 0.0-0.5 [facility] Comment on above: Performed By: #### U AMIC #### [facility] [address] [place] [address] Dr. Rakel Fraga LYMPH # 2.3 103/ul Normal 1.2-3.8 [facility] Comment on above: Performed By: #### U AMIC #### [facility] [address] [place] [address] Dr. Rakel Fraga Lymphocytes/100 WBC (Bld) 25.3 % Normal 20.5-60.0 [facility] Comment on above: Performed By: #### U AMIC #### [facility] [address] [place] [address] Dr. Rakel Fraga MANUAL DIFF REQ NO Normal [facility] Comment on above: Performed By: #### U AMIC #### [facility] [address] [place] [address] Dr. Rakel Fraga MCH (RBC) [Entitic mass] 30.3 pg Normal 25.9-34.0 [facility] Comment on above: Performed By: #### U AMIC #### [facility] [address] [place] [address] Dr. Rakel Fraga MCHC (RBC) [Mass/Vol] 33.3 g/dL Normal 29.9-35.2 [facility] Comment on above: Performed By: #### U AMIC #### [facility] [address] [address] [address] Rakel Fraga MCV (RBC) [Entitic vol] 90.9 fL Normal 80.0-94.0 [facility] Comment on above: Performed By: #### U AMIC #### [facility] [address] [address] [address] Rakel Fraga MONO # 0.8 103/ul Normal 0.3-0.8 [facility] Comment on above: Performed By: #### U AMIC #### [facility] [address] [place] [address] Dr. Rakel Fraga Monocytes/100 WBC (Bld) 8.5 % Normal 1.7-12.0 [facility] Comment on above: Performed By: #### U AMIC #### [facility] [address] [place] [address] Dr. Rakel Fraga NEUT # 5.5 103/ul Normal 1.4-6.5 [facility] Comment on above: Performed By: #### U AMIC #### [facility] [address] [place] [address] Dr. Rakel Fraga Neutrophils/100 WBC (Bld) 62.2 % Normal 43.0-75.0 [facility] Comment on above: Performed By: #### U AMIC #### [facility] [address] [address] [address] Rakel Fraga Platelet mean volume (Bld) [Entitic vol] 9.8 fL Normal 9.5-13.5 [facility] Comment on above: Performed By: #### U AMIC #### [facility] [address] [place] [address] Dr. Rakel Fraga PLT 252 103/ul Normal 150-450 [facility] Comment on above: Performed By: #### U AMIC #### [facility] [address] [place] [address] Dr. Rakel Fraga RBC 4.82 106/ul Normal 4.70-6.10 [facility] Comment on above: Performed By: #### U AMIC #### [facility] [address] [address] [address] Rakel Fraga WBC 8.9 103/ul Normal 4.0-11.0 [facility] Comment on above: Performed By: #### U AMIC #### [facility] [address] [address] [address] Rakel Fraga PROF CHEM 8 (BAS METB)on Anion gap [Moles/Vol] 9.4 mmol/L Normal [facility] Comment on above: Performed By: #### B MP #### [facility] [address] [place] [address] Dr. Rakel Fraga Calcium [Mass/Vol] 8.5 mg/dL Normal 8.5-10.1 [facility] Comment on above: Performed By: #### B MP #### [facility] [address] [place] [address] Dr. Rakel Fraga Chloride [Moles/Vol] 104 mmol/L Normal 98-107 [facility] Comment on above: Performed By: #### B MP #### [facility] [address] [place] [address] Dr. Rakel Fraga CO2 [Moles/Vol] 28.0 mmol/L Normal 21.0-32.0 [facility] Comment on above: Performed By: #### B MP #### [facility] [address] [place] [address] Dr. Rakel Fraga Creatinine [Mass/Vol] 1.18 mg/dL Normal 0.70-1.30 [facility] Comment on above: Performed By: #### B MP #### [facility] [address] [place] [address] Dr. Rakel Fraga EGFR-AF TAJIK >60 Normal >=60 [facility] Comment on above: Performed By: #### B MP #### [facility] [address] [place] [address] Dr. Rakel Fraga EGFR-NON AF TAJIK >60 Normal >=60 [facility] Comment on above: Performed By: #### B MP #### [facility] [address] [address] [address] Rakel Fraga Glucose [Mass/Vol] 92 mg/dL Normal 74-106 [facility] [place] Comment on above: Performed By: #### B MP #### [facility] [address] [address] [address] Rakel Fraga Potassium [Moles/Vol] 3.4 mmol/L Critically low 3.5-5.1 [facility] Comment on above: Performed By: #### B MP #### [facility] [address] [address] [address] Rakel Fraga Sodium [Moles/Vol] 138 mmol/L Normal 136-145 [facility] Comment on above: Performed By: #### B MP #### [facility] [address] [address] [address] Rakel Fraga Urea nitrogen [Mass/Vol] 20.0 mg/dL Critically high 7.0-18.0 [facility] Comment on above: Performed By: #### B MP #### [facility] [address] [address] [address] Rakel Fraga Urea nitrogen/Creatinine [Mass ratio] 16.9 mg/mg Normal [facility] Comment on above: Performed By: #### B MP #### [facility] [address] HEAD WO CONon [...] DE PAZ Date: 2022-07-28 14:51 Normal [facility] MRI CSPINE WO CONon 07-20-20 MRI [facility] WO CON EXAMINATION: MRI [facility] WO CON HISTORY: Anesthesia of skin ; chronic [...] NOEMÍ MORRISON Date: 2022-07-20 12:52 Normal [facility] OVA AND PARASITE EXAMINATION on 07-13-2022 Ova + Parasite Exam Final report Normal [facility] Comment on above: Result Comment: Thes e results were obtained using wet preparation(s) and trichrome stained smear. This test does not include testing for Cryptosporidium parvum, Cyclospora, or Microsporidia. Performed By: #### U AMIC #### [facility] [address] [address] [address] Rakel Fraga Result 1 Comment Normal [facility] Comment on above: Result Comment: No o va, cysts, or parasites seen. . One negative specimen does not rule out the possibility of a parasitic infection. Performed By: #### U AMIC #### [facility] [address] [address] [address] Rakel Fraga CLOSTRIDIUM DIFFICILE PCRon 07-12-2022 C difficile Toxin Gene SHADIA Negative Normal Negative [facility] Comment on above: Performed By: #### C DIFNAA #### [facility] [address] [address] [address] Rakel Fraga Physician Referralon 022 Physician Referral [id number] Normal [facility] STOOL CULTUREon 07-10-2022 Campylobacter Culture Final report Normal [facility] Comment on above: Performed By: #### C XSTOOL ####[facility] [address] [address]DrKailey Fraga E coli Shiga Toxin EIA Negative Normal Negative [facility] Comment on above: Performed By: #### C XSTOOL ####[facility] [address] [address]Dr. aRkel Fraga Result 1 Comment Normal [facility] Comment on above: Result Comment: No S almonella or Shigella recovered. Performed By: #### C XSTOOL ####[facility] [address] [address]Dr. Rakel Fraga Result Comment: No C ampylobacter species isolated. Salmonella/Shigella Screen Final report Normal [facility] Comment on above: Performed By: #### C XSTOOL ####[facility] [id number] Rakel Fraga CT ABD/PELV W CONon 07-07-20 CT ABD/PELV W CON CT ABDOMEN/PELVIS WITH [...] ALBERTO REDMAN Date: 2022-07-07 16:50 Normal [facility] AMYLASEon 07-04-2022 Amylase [Catalytic activity/Vol] 40 U/L Normal 25-115 [facility] Comment on above: Performed By: #### L IPA, CHILANGO, CRP, CMP ####[facility] [address] [place], [place] [address]YsKailey Fraga CBC AUTO DIFFon 07-04-2022 BASO # 0.0 103/ul Normal 0.0-0.1 [facility] Comment on above: Performed By: #### B MP #### [facility] [address] [address] [address] Rakel Fraga Basophils/100 WBC (Bld) 0.5 % Normal 0.2-2.0 [facility] Comment on above: Performed By: #### B MP #### [facility] [address] [address] [address] Rakel Fraga EO # 0.5 103/ul Normal 0.0-0.7 [facility] Comment on above: Performed By: #### B MP #### [facility] [address] [address] [address] Rakel Fraga Eosinophils/100 WBC (Bld) 6.8 % Normal 0.9-7.0 [facility] Comment on above: Performed By: #### B MP #### [facility] [address] [place] [address] Dr. Rakel Fraga Erythrocyte distribution width (RBC) [Ratio] 13.0 % Normal 11.0-15.0 [facility] Comment on above: Performed By: #### B MP #### [facility] [address] [place] [address] Dr. Rakel Fraga Hematocrit (Bld) [Volume fraction] 39.2 % Critically low 42.0-54.0 [facility] Comment on above: Performed By: #### B MP #### [facility] [address] [place] [address] Dr. Rakel Fraga Hemoglobin (Bld) [Mass/Vol] 12.7 g/dL Critically low 14.0-18.0 [facility] Comment on above: Performed By: #### B MP #### [facility] [address] [place] [address] Dr. Rakel Fraga IG # 0.02 10e3/ul Normal 0.00-0.03 [facility] Comment on above: Performed By: #### B MP #### [facility] [address] [place] [address] Dr. Rakel Fraga IG % 0.3 % Normal 0.0-0.5 [facility] Comment on above: Performed By: #### B MP #### [facility] [address] [place] [address] Dr. Rakel Fraga LYMPH # 1.5 103/ul Normal 1.2-3.8 [facility] Comment on above: Performed By: #### B MP #### [facility] [address] [place] [address] Dr. Rakel Fraga Lymphocytes/100 WBC (Bld) 22.4 % Normal 20.5-60.0 [facility] Comment on above: Performed By: #### B MP #### [facility] [address] [place] [address] Dr. Rakel Fraga MANUAL DIFF REQ NO Normal [facility] Comment on above: Performed By: #### B MP #### [facility] [address] [place] [address] Dr. Rakel Fraga MCH (RBC) [Entitic mass] 29.8 pg Normal 25.9-34.0 [facility] Comment on above: Performed By: #### B MP #### [facility] [address] [place] [address] Dr. Rakel Fraga MCHC (RBC) [Mass/Vol] 32.4 g/dL Normal 29.9-35.2 [facility] Comment on above: Performed By: #### B MP #### [facility] [address] [place] [address] Dr. Rakel Fraga MCV (RBC) [Entitic vol] 92.0 fL Normal 80.0-94.0 [facility] Comment on above: Performed By: #### B MP #### [facility] [address] [place] [address] Dr. Rakel Fraga MONO # 0.4 103/ul Normal 0.3-0.8 [facility] Comment on above: Performed By: #### B MP #### [facility] [address] [place] [address] Dr. Rakel Fraga Monocytes/100 WBC (Bld) 6.2 % Normal 1.7-12.0 [facility] Comment on above: Performed By: #### B MP #### [facility] [address] [address] [address] Rakel Fraga NEUT # 4.2 103/ul Normal 1.4-6.5 [facility] Comment on above: Performed By: #### B MP #### [facility] [address] [address] [address] Rakel Fraga Neutrophils/100 WBC (Bld) 63.8 % Normal 43.0-75.0 [facility] Comment on above: Performed By: #### B MP #### [facility] [address] [address] [address] Rakel Fraga Platelet mean volume (Bld) [Entitic vol] 9.8 fL Normal 9.5-13.5 [facility] Comment on above: Performed By: #### B MP #### [facility] [address] [address] [address] Rakel Fraga PLT 185 103/ul Normal 150-450 [facility] Comment on above: Performed By: #### B MP #### [facility] [address] [address] [address] Rakel Fraga RBC 4.26 106/ul Critically low 4.70-6.10 [facility] Comment on above: Performed By: #### B MP #### [facility] [address] [address] [address] Rakel Fraga WBC 6.6 103/ul Normal 4.0-11.0 [facility] Comment on above: Performed By: #### B MP #### [facility] [address] [address] [address] Rakel Fraga CRPon 07-04-2022 CRP [Mass/Vol] mg/L Normal <=1.0 [facility] Comment on above: Performed By: #### L IPA, CHILANGO, CRP, CMP ####[facility] [address] [address]Dr. Rakel Fraga LIPASEon 07-04-2022 Lipase [Catalytic activity/Vol] 65.0 U/L Critically low 73.0-393.0 [facility] Comment on above: Performed By: #### L IPA, CHILANGO, CRP, CMP ####[facility] [address] [address]Dr. Rakel Fraga OCC BLD IMMUNO SCREENon 06-15 OCCULT BLOOD Negative Normal NEGATIVE [facility] Comment on above: Performed By: #### U AMIC #### [facility] [address] [address] [address] Rakel Fraga PROF 14(COMP METB)on 022 Albumin [Mass/Vol] 3.7 g/dL Normal 3.4-5.0 [facility] Comment on above: Performed By: #### L IPA, CHILANGO, CRP, CMP ####[facility] [address] [address]Dr. Rakel Fraga Albumin/Globulin [Mass ratio] 1.2 {ratio} Normal [facility] Comment on above: Performed By: #### L IPA, CHILANGO, CRP, CMP ####[facility] [address] [address]Dr. Rakel Fraga ALP [Catalytic activity/Vol] 101 U/L Normal 46-116 [facility] Comment on above: Performed By: #### L IPA, CHILANGO, CRP, CMP ####[facility] [address] [address]Dr. Rakel Fraga ALT [Catalytic activity/Vol] 47 U/L Normal 16-63 [facility] Comment on above: Performed By: #### L IPA, CHILANGO, CRP, CMP ####[facility] [address] [address]Dr. Rakel Fraga Anion gap [Moles/Vol] 11.1 mmol/L Normal [facility] Comment on above: Performed By: #### L IPA, CHILANGO, CRP, CMP ####[facility] [address] [address]Dr. Rakel Fraga AST [Catalytic activity/Vol] 28 U/L Normal 15-37 [facility] Comment on above: Performed By: #### L IPA, CHILANGO, CRP, CMP ####[facility] [address] [address]Dr. Rakel Fraga Bilirubin [Mass/Vol] 0.5 mg/dL Normal 0.2-1.0 [facility] Comment on above: Performed By: #### L IPA, CHILANGO, CRP, CMP ####[facility] [address] [address]Dr. Rakel Fraga Calcium [Mass/Vol] 8.7 mg/dL Normal 8.5-10.1 [facility] Comment on above: Performed By: #### L IPA, CHILANGO, CRP, CMP ####[facility] [address] [place], [place] [address]Dr. Rakel Fraga Chloride [Moles/Vol] 110 mmol/L Critically high 98-107 [facility] Comment on above: Performed By: #### L IPA, CHILANGO, CRP, CMP ####[facility] [address] [place], [place] [address]Dr. Rakel Fraga CO2 [Moles/Vol] 26.0 mmol/L Normal 21.0-32.0 [facility] Comment on above: Performed By: #### L IPA, CHILANGO, CRP, CMP ####[facility] [address] [place], [place] [address]Dr. Rakel Fraga Creatinine [Mass/Vol] 1.23 mg/dL Normal 0.70-1.30 [facility] Comment on above: Performed By: #### L IPA, CHILANGO, CRP, CMP ####[facility] [address] [place], [place] [address]Dr. Rakel Fraga EGFR-AF TAJIK >60 Normal >=60 [facility] Comment on above: Performed By: #### L IPA, CHILANGO, CRP, CMP ####[facility] [address] [place], [place] [address]Dr. Rakel Fraga EGFR-NON AF TAJIK >60 Normal >=60 [facility] Comment on above: Performed By: #### L IPA, CHILANGO, CRP, CMP ####[facility] [address] [place], [place] [address]Dr. Rakel Fraga Globulin (S) [Mass/Vol] 3.2 g/dL Normal [facility] Comment on above: Performed By: #### L IPA, CHILANGO, CRP, CMP ####[facility] [address] [address]Dr. Rakel Fraga Glucose [Mass/Vol] 82 mg/dL Normal 74-106 [facility] [place] Comment on above: Performed By: #### L IPA, CHILANGO, CRP, CMP ####[facility] [address] [address]Dr. Rakel Fraga Potassium [Moles/Vol] 4.1 mmol/L Normal 3.5-5.1 [facility] Comment on above: Performed By: #### L IPA, CHILANGO, CRP, CMP ####[facility] [address] [address]Dr. Rakel Fraga Protein [Mass/Vol] 6.9 g/dL Normal 6.4-8.2 [facility] [place] Comment on above: Performed By: #### L IPA, CHILANGO, CRP, CMP ####[facility] [address] [address]Dr. Rakel Fraga Sodium [Moles/Vol] 143 mmol/L Normal 136-145 [facility] [place] Comment on above: Performed By: #### L IPA, CHILANGO, CRP, CMP ####[facility] [address] [address]Dr. Rakel Fraga Urea nitrogen [Mass/Vol] 23.0 mg/dL Critically high 7.0-18.0 [facility] Comment on above: Performed By: #### L IPA, CHILANGO, CRP, CMP ####[facility] [address] [address]Dr. Rakel Fraga Urea nitrogen/Creatinine [Mass ratio] 18.7 mg/mg Normal [facility] Comment on above: Performed By: #### L IPA, CHILANGO, CRP, CMP ####[facility] [address] [address]Dr. Rakel Fraga SED RATE [facility] 2021 SED RATE 7 mm/hr Normal <=20 [facility] Comment on above: Performed By: #### S EDR ####[facility] [address] [address]Dr. Rakel Fraga UA RANDOM W/MICROSCOPICon BACTERIA NONE SEEN Normal NONE SEEN [facility] Comment on above: Performed By: #### U AMIC #### [facility] [address] [address] [address] Rakel Fraga Bilirubin Ql (U) Negative Normal NEGATIVE [facility] Comment on above: Performed By: #### U AMIC #### [facility] [address] [address] [address] Rakel Fraga CAST NONE SEEN Normal NONE SEEN [facility] Comment on above: Performed By: #### U AMIC #### [facility] [address] [address] [address] Rakel Fraga Clarity (U) CLEAR Normal CLEAR [facility] Comment on above: Performed By: #### U AMIC #### [facility] [address] [address] [address] Rakel Fraga Color (U) YELLOW Normal YELLOW [facility] Comment on above: Performed By: #### U AMIC #### [facility] [address] [address] [address] Rakel Fraga Crystals LM Nom (Urine sed) NONE SEEN Normal NONE SEEN [facility] Comment on above: Performed By: #### U AMIC #### [facility] [address] [address] [address] Rakel Fraga Epithelial cells LM Ql (Urine sed) RARE Normal NONE SEEN /RARE [facility] Comment on above: Performed By: #### U AMIC #### [facility] [address] [address] [address] Rakel Fraga Glucose Ql (U) Negative Normal NEGATIVE [facility] Comment on above: Performed By: #### U AMIC #### [facility] [address] [address] [address] Rakel Fraga Hemoglobin Ql (U) Negative Normal NEGATIVE [facility] Comment on above: Performed By: #### U AMIC #### [facility] [address] [address] [address] Rakel Fraga Ketones Ql (U) Negative Normal NEGATIVE [facility] Comment on above: Performed By: #### U AMIC #### [facility] [address] [place] [address] Dr. Rakel Fraga LEUKOCYTES Negative Normal NEGATIVE [facility] Comment on above: Performed By: #### U AMIC #### [facility] [address] [place] [address] Dr. Rakel Fraga MUCOUS NONE SEEN Normal NONE SEEN [facility] Comment on above: Performed By: #### U AMIC #### [facility] [address] [place] [address] Dr. Rakel Fraga Nitrite Ql (U) Negative Normal NEGATIVE [facility] Comment on above: Performed By: #### U AMIC #### [facility] [address] [place] [address] Dr. Rakel Fraga pH (U) 5.5 [pH] Normal 5-9 [facility] Comment on above: Performed By: #### U AMIC #### [facility] [address] [place] [address] Dr. Rakel Fraga RBC NONE SEEN Abnormal 0-2 [facility] Comment on above: Performed By: #### U AMIC #### [facility] [address] [place] [address] Dr. Rakel Fraga SPEC GRAVITY >=1.030 Abnormal 1.005-<=1.025 [facility] Comment on above: Performed By: #### U AMIC #### [facility] [address] [place] [address] Dr. Rakel Fraga UA PROTEIN Negative Normal NEGATIVE/ TRACE [facility] Comment on above: Performed By: #### U AMIC #### [facility] [address] [place] [address] Dr. Rakel Fraga Urobilinogen Qn (U) 0.2 {Arnoldo'U}/dL Normal 0.2 - 1. 0 [facility] Comment on above: Performed By: #### U AMIC #### [facility] [address] [place] [address] Dr. Rakel Fraga WBC NONE SEEN Normal NONE SEEN [facility] Comment on above: Performed By: #### U [facility] #### [facility] [address] [address] [address] Rakel Frgaa NM HEPATOBILIARY SCAN W EFon 06-29-2022 NM [...] by: JARETT GARCÍA Date: 2022-06-29 16:08 Normal [facility] US SINGLE QUAD RT UPPERon US [...] by: NOEMÍ MORRISON Date: 2022-06-25 13:03 Normal [facility] Coding Summaryon 04-05-2020 Coding Summary CODING DATE: 04/05/2020 [facility] DS[facility] STATUS: Home PAYOR: Medicare ADMIT DX: REASON [...] Concha Lovett Date Saved: 04/05/2020 12:34 pm [facility] Consent Formson 03-31-2020 Consent Forms [id number] .[id number] Medication Managementon 03-14 Medication Management [id number] [facility] 03-30-2020 Anesthesia Note [...] history): All Problems Depression / SNOMED CT 327617566 / Confirmed Asthma / SNOMED CT 637914236 / Confirmed Chronic maxillary sinusitis / SNOMED CT 26674945 / Confirmed Epileptic seizures / SNOMED CT 410213360 / Confirmed Lumbago / SNOMED CT 504788999 / Confirmed Lumbar spondylosis / SNOMED CT 646475988 / Confirmed Histories Family History: No family [...] Charted Heart Rate Peripheral 71 bpm (MAR 30:09) Resp Rate 16 br/min (MAR 30:) SBP [...] Oriented. Review / Management Laboratory Results Plan [place] [employer] Anesthesiologists#( A) physical status classification: Class II. Anesthetic Preoperative Plan Anesthesia: Monitored anesthesia care. Anesthetic plan, risks, benefits, and alternatives discussed with the patient and/or family. Patient verbalized understanding. [Electronically Signed on: 03/30/2020 09:37 EDT] Nando Saeed MD [Verified on: 03/30/2020 09:37 EDT] Nando Saeed MD Normal [facility] Inpatient Patient Summaryon 03-30-2020 Inpatient [place] [address] Patient Discharge Instructions Name: KALANI ASENCIO : 1970 Patient Address: [address] [place] [address] Primary Care Provider: Name: Marcia Rodriguez DO After you are discharged if you find you have any questions, please, call [phone] ext [phone] to speak to a nurse. Discharge Diagnosis: Lumbago; Lumbar spondylosis Prescription Information: If you have been given a prescription for narcotics, seek immediate medical attention if you have any difficulty breathing or any sudden status changes such as confusion and sleepiness. If you or anyone you know is experiencing suicidal thoughts, mental health, alcohol and/or drug addiction problems; contact the [facility] 06/05 Crisis Hotline -Text 4HIEC [place] [phone]. If you received any narcotics, sedation, or [...] business decisions or sign any legal documents [facility] would like to thank you [...] for Disease Control and Prevention June 2014 [facility] Intraoperative Recordon 03-30-2020 [facility] Intraoperative Record MAGR Intra-Op Record Summary Primary Physician: Hany Galo MD Finalized Date/Time: 03/30/20 09:59:33 Pt. Name: KALANI ASENCIO /Sex: 1970 MALE Med Rec #: [id number] Physician: Hany Galo MD Financial #: [id number] Pt. Type: D Room/Bed: / Admit/Disch: 03/30/20 [...] Role Performed Surgeon - Primary Anesthesiologist of Picker Packer Record Time In 03/30/20 09:48:00 03/30/20 09:48:00 03/30/20 09:48:00 Time Out 03/30/20 09:57:00 03/30/20 09:57:00 03/30/20 09:57:00 Procedure Medial Branch Medial Branch Medial Branch Block(Bilateral) Block(Bilateral) Block(Bilateral) Last Modified By: Mitzi Wu RN, Stephanie RN Sauer, Stephanie RN 03/30/20 09:57:46 03/30/20 09:57:46 03/30/20 09:57:46 Entry 4 Entry 5 Entry 6 Case Attendee Mitzi Wu RN, Kelly Calmes, Luke T Role Performed Picker Packer Picker Packer Drapery Cutter Time In 03/30/20 09:48:00 03/30/20 09:48:00 03/30/20 09:48:00 Time Out 03/30/20 09:57:00 03/30/20 09:57:00 03/30/20 09:57:00 Procedure Medial Branch Medial Branch Medial Branch Block(Bilateral) Block(Bilateral) Block(Bilateral) Last Modified By: Mitzi Wu RN, Stephanie RN Sauer, Stephanie RN 03/30/20 09:57:46 03/30/20 09:57:46 03/30/20 09:57:46 Entry 7 Entry 8 Entry 9 Case Attendee Angeli Belcher Courtney CST Calmes, Luke T Regina CST Role Performed Scrub Personnel Scrub Personnel Drapery Cutter Time In 03/30/20 09:48:00 03/30/20 09:48:00 03/30/20 [...] Agents (Im.270) Povidone-Iodine Prep By Abida Suh FULL STACK DEVELOPER Prep Area (Im.270) Back Skin Prep Agent [...] Signed By: Mitzi Wu RN 03/30/20 09:59 [facility] MAGR Preoperative Recordon 0 03-30-2020 MAGR Preoperative Record MAGR Pre-Op Record Summary Primary Physician: Hany Galo MD Finalized Date/Time: 03/30/20 10:12:44 Pt. Name: KALANI ASENCIO./Sex: 1970 MALE Med Rec #: [id number] Physician: Hany Galo MD Financial #: [id number] Pt. Type: D Room/Bed: / Admit/Disch: 03/30/20 [...] Signed By: Kassie James RN 03/30/20 10:12 [facility] Operative Report - Surgeon/P hilary 03-30-2020 Operative [...] on: 03/30/2020 09:56 EDT] Hany Galo MD [facility] Patient Handouton 03-30-2020 Patient Handout Pain Procedure [...] to your first appointment after your procedure [facility] Coding Summaryon 03-29-2020 Coding Summary CODING DATE: 03/29/2020 [facility] STATUS: Home PAYOR: Medicare ADMIT DX: [...] Mandy Tarango Date Saved: 03/29/2020 03:20 pm [facility] History and Physicalon 03-29 History and Physical [id number] The patient has been examined and the medical record reviewed. The indications for surgery and exam are unchanged. [Electronically Signed on: 03/30/2020 08:37 EDT] Hany Galo MD [Verified on: 03/30/2020 08:37 EDT] Hany Galo MD [Transcribed on: 03/29/2020 14:32 EDT] [facility] Lab - Immunology/Serology Re sultson 03-29-2020 Lab - Immunology/Serology Results [id number] .00OTGTIFF [facility] Provider Orderson 03-28-2020 Provider Orders [id number] .00OTGTIFF [facility] SARS-CoV-2 (COVID-19) PCRon 03-28-2020 COVID-19 PCR Not Detected Normal Not Detected [facility] Comment on above: Order Comment: SENT TO [facility] 03/27/2020 SD Result Comment: Perf ormed at [facility] Department of Pathology [address] [place] [address] Results Called To Javier Dowell RN, Auto Suspension And Steering Mechanic By LR And Read Back For Confirmation On 03/28/2020 15:36:12 EDT. Performed By: #### 6 [id number] ####[facility] (DEFAULT)[address] [place], [place] [address] Progress Note - Provideron 0 03-25-2020 Progress Note - Provider [id number] .00OTGTIFF [facility] Coding Summaryon 03-24-2020 Coding Summary CODING DATE: 03/24/2020 [facility] STATUS: Home PAYOR: Medicare ADMIT DX: [...] Madeleine Baugh Date Saved: 03/24/2020 04:50 pm [facility] Coding Summary CODING DATE: 03/24/2020 [facility] STATUS: Home PAYOR: Medicare ADMIT DX: [...] Madeleine Baugh Date Saved: 03/24/2020 01:02 pm [facility] Coding Summaryon 03-21-2020 Coding Summary CODING DATE: 03/21/2020 [facility] STATUS: Home PAYOR: Medicare ADMIT DX: [...] Concha Lovett Date Saved: 03/21/2020 07:48 am [facility] Consent Formson 03-17-2020 Consent Forms [id number] [facility] Medication Managementon Medication Management [id number] [facility] Anesthesia Noteon 03-16-2020 Anesthesia Note [...] on: 03/16/2020 10:38 EDT] Warren Quach MD [facility] Anesthesia Note Patient: KALANI ASENCIO Age: 50 [...] history): All Problems Depression / SNOMED CT 871515318 / Confirmed Asthma / SNOMED CT 303038222 / Confirmed Chronic maxillary sinusitis / SNOMED CT 45928431 / Confirmed Epileptic seizures / SNOMED CT 122960162 / Confirmed Lumbago / SNOMED CT 419267310 / Confirmed Lumbar spondylosis / SNOMED CT 698223316 / Confirmed Histories Family History: No family [...] Oriented. Review / Management Laboratory Results Plan [place] [employer] Anesthesiologists#( A) physical status classification: Class II. Anesthetic Preoperative Plan Anesthesia: Monitored anesthesia care. Anesthetic plan, risks, benefits, and alternatives discussed with the patient and/or family. Patient verbalized understanding. Informed consent was given. Anesthetic technique: Monitored anesthesia care. [Electronically Signed on: 03/16/2020 10:32 EDT] Warren Quach MD [Verified on: 03/16/2020 10:32 EDT] Warren Quach MD [facility] Inpatient Patient Summaryon 03-16-2020 Inpatient [place] [address] Patient Discharge Instructions Name: SHANEL KALANI Mario : 1970 Patient Address: [address] [place] [address] Primary Care Provider: Name: Marcia Rodriguez DO After you are discharged if you find you have any questions, please, call [phone] ext [phone] to speak to a nurse. Discharge Diagnosis: Lumbago; Lumbar spondylosis Prescription Information: If you have been given a prescription for narcotics, seek immediate medical attention if you have any difficulty breathing or any sudden status changes such as confusion and sleepiness. If you or anyone you know is experiencing suicidal thoughts, mental health, alcohol and/or drug addiction problems; contact the [facility] 06/05 Crisis Hotline -Text 4HOPE to [phone]. If you received any narcotics, sedation, or [...] business decisions or sign any legal documents [facility] would like to thank you [...] for Disease Control and Prevention June 2014 [facility] Lab - Immunology/Serology Re suljimmy 03-16-2020 Lab - Immunology/Serology Results [id number] .00OTGTIFF [facility] MAGR Intraoperative Recordon 03-16-2020 MAGR Intraoperative Record MAGR Intra-Op Record Summary Primary Physician: Hany Galo MD Finalized Date/Time: 03/16/20 10:40:07 Pt. Name: KALANI ASENCIO /Sex: 1970 MALE Med Rec #: [id number] Physician: Hany Galo MD Financial #: [id number] Pt. Type: D Room/Bed: / Admit/Disch: 03/16/20 [...] Role Performed Surgeon - Primary Anesthesiologist of Picker Packer Record Time In 03/16/20 10:30:00 03/16/20 10:30:00 03/16/20 10:30:00 Time Out 03/16/20 10:36:00 03/16/20 10:36:00 03/16/20 10:36:00 Procedure Medial Branch Medial Branch Medial Branch Block(Bilateral) Block(Bilateral) Block(Bilateral) Last Modified By: Swathi Beltran RN, Barbara RN Long, Barbara RN 03/16/20 10:36:38 03/16/20 10:36:38 03/16/20 10:36:38 Entry 4 Entry 5 Entry 6 Case Attendee Jorge MORRIS, Krystle Goldman Liberty G Role Performed Picker Packer Picker Packer Scrub Personnel Time In 03/16/20 10:30:00 03/16/20 10:30:00 03/16/20 10:30:00 Time Out 03/16/20 10:36:00 03/16/20 10:36:00 03/16/20 10:36:00 Procedure Medial Branch Medial Branch Medial Branch Block(Bilateral) Block(Bilateral) Block(Bilateral) Last Modified By: Swathi Beltran RN, Barbara RN Long, Barbara RN 03/16/20 10:36:38 03/16/20 10:36:38 03/16/20 10:36:38 Entry 7 Case Attendee Courtney Fay Role Performed Drapery Cutter Time In 03/16/20 10:30:00 Time Out 03/16/20 [...] Agents (Im.270) Povidone-Iodine Prep By Lauren Mason Prep Area (Im.270) Back Prep Area Details [...] Signed By: Swathi Beltran RN 03/16/20 10:40 [facility]2020 [facility] Preoperative Record MAGR Pre-Op Record Summary Primary Physician: Hany Galo MD Finalized Date/Time: 03/16/20 10:54:47 Pt. Name: KALANI ASENCIO./Sex: 1970 MALE Med Rec #: [id number] Physician: Hany Galo MD Financial #: [id number] Pt. Type: D Room/Bed: / Admit/Disch: 03/16/20 [...] By: Blanka Szymanski RN 03/16/20 10:54 Normal [facility] Operative Report - Surgeon/P hilary [...] on: 03/16/2020 10:35 EDT] Hany Galo MD [facility] Patient Handouton 03-16-2020 Patient Handout Pain Procedure [...] to your first appointment after your procedure [facility] History and Physicalon 03-15 History and Physical [id number] .00OTGTIFF The patient has been examined and the medical record reviewed. The indications for surgery and exam are unchanged. [Electronically Signed on: 03/16/2020 10:25 EDT] Hany Galo MD [Verified on: 03/16/2020 10:25 EDT] Hany Galo MD [Transcribed on: 03/15/2020 13:40 EDT] BK Normal [facility] Lab - Reference Lab Resultso n 03-15-2020 Lab - Reference Lab Results [id number] .00OTGTIFF [facility] Progress Note - Provideron 0 03-15-2020 Progress Note - Provider [id number] .00OTGTIFF [facility] SARS-CoV-2 (COVID-19) PCRon 03-15-2020 COVID-19 PCR Not Detected Normal Not Detected [facility] Comment on above: Order Comment: Sent to [facility] 03/13/2020 11:05:18 EDT SD Performed By: #### [id number] ####[facility] (DEFAULT)[address] [place] [address] Provider Orderson 03-14-2020 Provider Orders [id number] .00OTGTIFF [facility] Coding Summaryon 03-10-2020 Coding Summary CODING DATE: 03/10/2020 [facility] STATUS: Home PAYOR: Medicare ADMIT DX: [...] Madeleine Baugh Date Saved: 03/10/2020 03:34 pm [facility] Coding Summaryon 03-08-2020 Coding Summary CODING DATE: 03/08/2020 [facility] STATUS: Home PAYOR: Medicare ADMIT DX: [...] Madeleine Baugh Date Saved: 03/08/2020 09:40 am [facility] Coding Summaryon 02-29-2020 Coding Summary CODING DATE: 02/29/2020 [facility] STATUS: Home PAYOR: Medicare APC DESCRIPTION [...] Tarango Revised Date Saved: 02/24/2020 08:52 am [facility] Controlled Substances Agreem entson 02-26-2020 Controlled Substances Agreements [id number] .00OTGTIFF [facility] Progress Note - Provideron 0 02-25-2020 Progress Note - Provider [id number] .00OTGTIFF [facility] XR Spine Lumbosacral Complet e w/ Bendingon [...] Davi Bassett MD 02/26/20 6:21 am Technologist: WS Normal [facility] XR Spine Thoracic 3 Viewson 02-23-2020 XR [...] Bassett MD 02/26/20 6:21 am Technologist: PEDRO [facility] Vital Signs Date Time Vital Sign Value Performing Clinician Facility 08-29-2023 14:20-0500 Body height 187.96 cm Jemal Teague Other [facility] Other 08-29-2023 14:20-0500 Body mass index (BMI) [Ratio] 19.9 kg/m2 Jemal Teague Other [facility] Other 08-29-2023 14:20-0500 Body weight 70.31 kg Jemal Teague Other [facility] Other 06-11-2023 14:15-0400 Body height 187.96 cm Imad Asaad Other [facility] Other 06-11-2023 14:15-0400 Body mass index (BMI) [Ratio] 19.9 kg/m2 Imad Asaad Other [facility] Other 06-11-2023 14:15-0400 Body weight 70.31 kg Imad Asaad Other [facility] Other 06-11-2023 14:15-0400 Diastolic blood pressure 71 mm[Hg] Imad Asaad Other [facility] Other 06-11-2023 14:15-0400 Respiratory rate 18 /min Imad Asaad Other [facility] Other 06-11-2023 14:15-0400 Systolic blood pressure 122 mm[Hg] Imad Asaad Other [facility] Other 04-18-2023 14:50-0400 Diastolic blood pressure 77 mm[Hg] [facility] 04-18-2023 14:50-0400 Heart rate 73 /min [facility] 04-18-2023 14:50-0400 Respiratory rate 16 /min [facility] 04-18-2023 14:50-0400 SaO2% (BldA) [Mass fraction] 98 % [facility] 04-18-2023 14:50-0400 Systolic blood pressure 106 mm[Hg] [facility] 04-18-2023 12:36-0400 Body height 185.42 cm [facility] 04-18-2023 12:36-0400 Body temperature 98.2 [degF] [facility] 04-18-2023 12:36-0400 Body weight 68.03 kg [facility] 03-13-2023 14:00-0400 Body height 187.96 cm Imad Asaad Other [facility] Other 03-13-2023 14:00-0400 Body mass index (BMI) [Ratio] 19.51 kg/m2 Imad Asaad Other [facility] Other 03-13-2023 14:00-0400 Body weight 68.95 kg Imad Asaad Other [facility] Other 03-13-2023 14:00-0400 Diastolic blood pressure 70 mm[Hg] Imad Asaad Other [facility] Other 03-13-2023 14:00-0400 Respiratory rate 18 /min Imad Asaad Other [facility] Other 03-13-2023 14:00-0400 Systolic blood pressure 150 mm[Hg] Imad Asaad Other [facility] Other Encounters Encounter Date Encounter Type Care Provider Facility Start: 10-09-2023 End: 10-09-2023 ambulatory CARMEN FALLONMiteshCHANTELLE Not Available Start: 08-29-2023 End: 08-29-2023 ambulatory Jemal Teague Other [facility] Other Start: 08-29-2023 Office outpatient new 30 minutes Jemal Teague [facility] Start: 08-27-2023 End: 08-27-2023 ambulatory NON STAFF Facility:[facility] Start: 08-27-2023 End: 08-27-2023 ambulatory NON STAFF [facility] Work Phone: Start: 08-27-2023 End: 08-27-2023 Patient encounter procedure [facility] [place] Work Phone: Start: 06-11-2023 End: 06-11-2023 ambulatory Imad Asaad Other [facility] Other Start: 06-11-2023 Office outpatient visit 25 minutes Imad Asaad [facility] Start: 04-18-2023 End: 04-18-2023 ambulatory Imad Asaad Facility:[facility] Start: 04-18-2023 End: 04-18-2023 Admission to same day surgery center [facility] Work Phone: Start: 04-18-2023 End: 04-18-2023 ambulatory NON STAFF [facility] Work Phone: Start: 03-13-2023 End: 03-13-2023 ambulatory Imad Asaad Other [facility] Other Start: 03-13-2023 Office outpatient new 45 minutes Imad Asaad [facility] Start: 03-12-2023 End: 03-13-[address] JARETT GARCÍA Facility:[facility] Start: 01-31-2023 End: 02-01-2023 ambulatory NARENDRANATH LAKSHMIPATHY . Facility:[facility] Start: 01-14-2023 End: 01-14-2023 [...] NERI CARABALLO Facility:[facility] Start: 08-14-2022 ambulatory CARMEN CARMEN PRATT Fa cility:[facility] Start: 08-09-2022 End: 08-10-2022 ambulatory STACY JEFFERSON . Facility:[facility] Start: 07-28-2022 End: 07-28-2022 ambulatory ELIAS COLLINS . Facility:[facility] Start: 07-20-2022 End: 07-21-2022 ambulatory DAVID ANGUIANO Facility:[facility] Start: 07-10-2022 End: 07-10-2022 ambulatory SHELIA PRATT Facility:[facility] Start: 07-10-2022 ambulatory CARMEN CARMEN PRATT Faci lity:[facility] Start: 07-06-2022 End: 07-07-2022 ambulatory [employer] CARMEN FELISA Facility:[facility] Start: 07-05-2022 End: 07-05-2022 ambulatory [employer] CARMEN AICELLIOTTZ Facility:[facility] Start: 07-04-2022 End: 07-05-2022 ambulatory [employer] CARMEN AICELLIOTTZ Facility:[facility] Start: 06-29-2022 End: 06-30-2022 ambulatory [employer] CARMEN FELISA Facility:[facility] Start: 06-25-2022 End: 06-26-2022 ambulatory [employer] CARMEN FELISA Facility:[facility] Start: 05-10-2022 End: 05-11-2022 ambulatory STACY JEFFERSON . Facility:[facility] Procedures Date Procedure Procedure Detail Performing Clinician Start: 08-27-2023 X-ray of cervical spine Start: 04-18-2023 Colonoscopy Plan of Treatment Date Care Activity Detail Author Start: 05-02-2023 ambulatory Ambulatory Facility:[facility] Start: 04-18-2023 [facility] Patient Education Hemorrhoids (DC) [facility] Work Phone: Payers Date Payer Category Payer Self-pay [id number] 2014 Unknown [id number] 1970 Unknown [id number] 2.16.8 40.1.568042.3.579.2.727 1970 Unknown [id number] 2.16.84 0.1.816502.3.579.2.593 1970 Unknown [id number] 2.16.84 0.1.259301.3.579.2.593 1970 Unknown [id number] 2.16.84 0.1.814485.3.579.2.593 1970 Unknown [id number] 2.16.84 0.1.463294.3.579.2.593 1970 Unknown [id number] 2.16.84 0.1.976556.3.579.2.593 1970 Unknown [id number] 2.16.84 0.1.692597.3.579.2.593 1970 Unknown [id number] 2.16.84 0.1.426929.3.579.2.593 1970 Unknown [id number] 2.16.84 0.1.749648.3.579.2.593 1970 Unknown [id number] 2.16.84 0.1.892279.3.579.2.593 1970 Unknown [id number] 2.16.84 0.1.994447.3.579.2.593 1969 Unknown [id number] 2.16.84 0.1.049312.3.579.2.593 1969 Unknown [id number] 2.16.84 0.1.785833.3.579.2.593 1969 Unknown [id number] 2.16.84 0.1.642321.3.579.2.593 1969 Unknown [id number] 2.16.84 0.1.133644.3.579.2.593 1969 Unknown [id number] 2.16.84 0.1.091603.3.579.2.593 1969 Unknown [id number] 2.16.84 0.1.187265.3.579.2.593 1969 Unknown [id number] 2.16.84 0.1.768009.3.579.2.593 1969 Unknown [id number] 2.16.84 0.1.397851.3.579.2.593 1969 Unknown [id number] 2.16.84 0.1.063949.3.579.2.593 1969 Unknown [id number] 2.16.84 0.1.923951.3.579.2.593 1970 Unknown [id number] 2.16.84 0.1.659596.3.579.2.593 1969 Unknown [id number] 2.16.84 0.1.265629.3.579.2.593 1969 Unknown [id number] 2.16.84 0.1.634172.3.579.2.593 1969 Unknown [id number] 2.16.84 0.1.460579.3.579.2.593 1969 Unknown [id number] 2.16.840 .1.321837.3.579.2.1259 1960 Medicaid [id number] 1960 Medicare [id number] Medicare Medicare Outpatient [id number] 9A [id number] Unknown [id number] 2.16.8 40.1.528245.3.579.2.531 Unknown [id number] 2.16.8 40.1.565452.3.579.2.531 Social History Date Type Detail Facility Sex Assigned At [facility] Other Start: 04-18-2023 End: 04-18-2023 Tobacco smoking status MOIS Ex-smoker (finding) [facility] Start: 1970 Sex Assigned At Male F [facility] Goals Date Patient Goal Desired Activity [...] Carpal tunnel syndrome, left (ICD-10 - G56.02) [facility] Other 08-29-2023 Evaluation note* Encounter Date Diagnosis Assessment Notes Treatment Notes Treatment Clinical Notes May, Diarrhea (ICD-10 - R19.7) May, Exocrine pancreatic insufficiency (ICD-10 - K86.81) [facility] Encounter Date Diagnosis Assessment Notes Treatment Notes Treatment Clinical Notes February, Diarrhea (ICD-10 - R19.7) February, Pancreatic insufficiency (ICD-10 - K86.89) February, Weight loss (ICD-10 - R63.4) [facility] Other 04-20-2023 NoteCONSULTATION CONSULTATION DATE: 01/31/2023 TO: [...] our patients to inform us about any rxwk-hba-ikckiwe medications or herbal remedies/nutritional supplements/alternative remedies. 2. [...] treatment options with their primary care provider.[id number] Note CONSULTATION CONSULTATION DATE: 11/01/2022 HISTORY OF [...] otherwise indicated. Patient agrees with this plan.[facility] [id number] Note CONSULTATION CONSULTATION DATE: 09/27/2022 HISTORY OF [...] be followed up in the clinic thereafter.[facility] 09-12-2022 NoteCONSULTATION CONSULTATION DATE: 09/12/2022 [...] of care and all questions were answered.[facility] [id number] NoteCONSULTATION PROCEDURE DATE: 08/09/2022 PREOPERATIVE DIAGNOSIS: Bilateral [...] in the clinic in three months' time.[facility] [id number] NoteCONSULTATION CONSULTATION DATE: 08/09/2022 HISTORY OF PRESENT [...] and patient is in agreement with this.[facility] 05-10-2022 NoteCONSULTATION CONSULTATION DATE: 05/10/2022 [...] otherwise indicated. Patient agrees with the plan.[facility] Evaluation noteNo assessment information [facility] Work Phone: History and physical note Author Jhon Medina [facility] April 18, 2023 1:56pm Note Date/Time April 18, 2023 1:56p m [facility] [address] [place] [address] Gastroenterology H&P Signed Patient: Kalani Asencio MR#: [id number] : 1970 Acct:[id number] Age/Sex: 53 / M Adm Date: 3 Loc: Room: Type: [facility] Attending Dr: Jhon Medina MD Copies [...] M.D. Documented By: Jhon Medina MD 04/18/23 1359 Signed By: <Electronically signed by Jhon Medina MD> 04/18/23 4226 [facility] Work Phone: Hisyqfc general Narrative - Reported* Type Description Date Medical History Asthma Medical History Depression Medical History Seasonal Allergies Medical History seizure disorder Surgical History Back surgery 2009 Surgical History bilat knee surgies 2008 [facility] Other History general Narrative - Reported* Type Description Date Medical History Asthma Medical History Depression Medical History Seasonal Allergies Medical History seizure disorder Medical History anxiety Surgical History Back surgery 2009 Surgical History bilat knee surgies 2008 Hospitalization History see above [facility] Other Hospital Discharge instructions Additional Instructions DISCHARGE [...] NOT operate machinery such as power tools, lawn mowers, snow blowers, sewing machines, etc. for [...] scheduled -Follow up with PCP. -Office number [phone]. [facility] Work Phone: Reason for visit NarrativePATIENT IS HERE FOR DIARRHEA AND PANCREATIC INSUFFICIENCY AT THE REQUEST OF CARMEN PRATT. RECENT TESTING IN REFERRAL [facility] [employer] Other Summary Purpose Family History No Family [...] No March 05 8:18am Hospital Course Note [facility] SURGERY Clinical Discharge Summary PERSON INFORMATION Name KALANI ASENCIO Age 50 Years 1970 Sex MALE Language Occitan PCP Marcia Rodriguez DO Marital Status Med [facility] Acct# Arrival 03/30/2020 08:43:00 Visit Reason Low back pain Acuity LOS 006 00:00 Address: [address] [place] [id number] Comment: PROVIDER INFORMATION VITALS INFORMATION Vital Sign [...] history): All Problems Depression / SNOMED CT 226745065 / Confirmed Asthma / SNOMED CT 464000191 / Confirmed Chronic maxillary sinusitis / SNOMED CT 80190612 / Confirmed Epileptic seizures / SNOMED CT 490539965 / Confirmed Lumbago / SNOMED CT 646276120 / Confirmed Lumbar spondylosis / SNOMED CT 160131747 / Confirmed Physical Examination VS/Measurements Vital Signs [...] history): All Problems Depression / SNOMED CT 925193123 / Confirmed Asthma / SNOMED CT 676869401 / Confirmed Chronic maxillary sinusitis / SNOMED CT 70723105 / Confirmed Epileptic seizures / SNOMED CT 755460967 / Confirmed Lumbago / SNOMED CT 612949797 / Confirmed Lumbar spondylosis / SNOMED CT 197246330 / Confirmed Physical Examination VS/Measurements Vital Signs [...] pain (neck) (M54.2) Referral Organization [facility] Referring Provider First Name Jemal Referring Provider Last Name Ho Referring Provider Specialty Neurologica l Surgery Referred Organization [facility] Referred Provider Tori Sanchez Referred Address [address], [place],[address] Referred Provider Specialty Pain Medicin e Referral Priority Routine Additional Source Comments (unrecognized sect ion and content) No Status Records FoundNo Status Records FoundNo Status Records FoundNo Status Records FoundNo Status Records Found INFORMATION SOURCE (unrecogn ized section and content) DATE CREATED AUTHOR 04/30/2020 [facility] DATE CREATED AUTHOR AUTHOR'S ORGANIZ ATION 08/07/2022 [facility] DATE CREATED AUTHOR AUTHOR'S ORGANIZ ATION 03/22/2023 [facility] DATE CREATED AUTHOR AUTHOR'S ORGANIZ ATION 10/11/2023 [facility] EPIC DATE CREATED AUTHOR AUTHOR'S ORGANIZ ATION 11/22/2023 [facility] Care Teams (unrecognized sec tion and content) [...] BE BASED ON THE PRIMARY CLINICAL RECORDS. [employer] provides no warranty or guarantee of the accuracy or completeness of information in this document.
== END 2023-12-16 10:23 | disposition home or self-care (01) ==
LOC: EC 10:22
PROVIDERS: PCP Nurse Practitioner; Visit Provider Orthopaedic Surgery
DX: M79.641 Pain in right hand (principal); M79.642 Pain in left hand
CPT/HCPCS: 73130

== ENCOUNTER 2024-01-30 08:14 | Outpatient (OUT) | payer MEDICARE, MEDICAID, SELFPAY ==
[2024-01-30 09:05] LABS: Basophils Percent Auto 0.5 % (0.2-2.0); Eosinophils Absolute Auto 0.5 10^3/uL (0.0-0.7); Eosinophils Percent Auto 8.3 % (0.9-7.0); Hematocrit 44.7 % (42.0-54.0); Hemoglobin 14.2 g/dL (14.0-18.0); Immature Granulocytes Abs Auto 0.01 10^3/uL (0.00-0.03); Immature Granulocytes Pct Auto 0.2 % (0.0-0.5); Lymphocytes Percent Auto 31.7 % (20.5-60.0); Mean Corpuscular HGB Conc 31.8 g/dL (29.9-35.2); Mean Corpuscular Hemoglobin 30.1 pg (25.9-34.0); Mean Corpuscular Volume 94.9 fL (80.0-94.0); Mean Platelet Volume 9.8 fL (9.5-13.5); Monocytes Absolute Auto 0.5 10^3/uL (0.3-0.8); Monocytes Percent Auto 8.3 % (1.7-12.0); Neutrophils Absolute Auto 3.2 10^3/uL (1.4-6.5); Platelet Count 199 10^3/uL (150-450); Red Blood Count 4.71 10^6/uL (4.70-6.10); Red Cell Distribution Width 13.2 % (11.0-15.0); White Blood Count 6.3 10^3/uL (4.0-11.0)
[2024-01-30 09:05] LABS: Bilirubin Urine NEGATIVE (NEGATIVE); Blood Urine NEGATIVE (NEGATIVE); Clarity Urine CLEAR (CLEAR); Color Urine YELLOW (YELLOW); Glucose Urine UA NEGATIVE (NEGATIVE); Ketones Urine NEGATIVE (NEGATIVE); Leukocyte Esterase Urine NEGATIVE (NEGATIVE); Nitrite Urine NEGATIVE (NEGATIVE); Protein Urine NEGATIVE (NEG/TRACE); pH Urine 6.5 (5.0-9.0)
[2024-01-30 09:08] LABS: Urine Microscopic Indicated NO
[2024-01-30 09:55] LABS: Alanine Aminotransferase 23 U/L (16-63); Albumin Level 3.7 g/dL (3.4-5.0); Alkaline Phosphatase 119 U/L (46-116); Anion Gap 14.3; Aspartate Amino Transferase 16 U/L (15-37); Bilirubin Total 0.6 mg/dL (0.2-1.0); Carbon Dioxide 25.4 mmol/L (21.0-32.0); Chloride 105 mmol/L (98-107); Chol HDL Ratio 4.1; Cholesterol 196 mg/dL (<=200); Estimated GFR (African America >60 (>=60); Estimated GFR (Non-African Ame 60 (>=60); Globulin 3.7 g/dL; Glucose 171 mg/dL (74-106); HDL Cholesterol 48 mg/dL (40-60); LDL Cholesterol Calculated 130.2 mg/dL; Potassium 3.7 mmol/L (3.5-5.1); Sodium 141 mmol/L (136-145); Total Protein 7.4 g/dL (6.4-8.2); Triglycerides 89 mg/dL (<=150); VLDL CHOLESTEROL 17.8 mg/dL
[2024-01-30 11:54] LABS: Prostate Specific Antigen Dx 0.72 ng/mL (<=4.00)
[2024-01-30 17:11] LABS: Estimated Average Glucose 117 mg/dL; Glycohemoglobin A1C 5.7 % (4.5-6.2)
== END 2024-01-30 08:15 | disposition home or self-care (01) ==
PROVIDERS: PCP Nurse Practitioner; Visit Provider Nurse Practitioner
DX: G40.909 Epilepsy, unspecified, not intractable, without status epilepticus (principal); K21.9 Gastro-esophageal reflux disease without esophagitis; K86.89 Other specified diseases of pancreas; Z12.5 Encounter for screening for malignant neoplasm of prostate
CPT/HCPCS: 36415; 80053; 80061; 81003; 83036; 84153; 85025

== ENCOUNTER 2024-03-04 13:40 | Outpatient (OUT) | payer MEDICARE, MEDICAID, SELFPAY ==
--- NOTE | 2024-03-04 14:03 | P.CN_ITS ---
Consult Note: HPI Data of Consult Patient: known to practice within the last 3 years Requesting Physician: Renetta Blood NP Primary Care Provider: Carmen Pratt NP Consult Narrative Reason for consult: chronic low back pain Narrative: Nabeel Asencio a pleasant 53 year old male presents for evaluation and management of chronic low back pain. Pain today 7/10 in low back, stabbing aching tightness. Pain increased with twisting, pushing, pulling, sitting too long, lifting, standing, activity. Pain improved with medications. Currently utilizing tylenol BID PRN, zonegran 100mg AM 200mg HS and setraline 100mg AM. Previously benefitted from lower Lumbar RFAs and left LCIH RFA. No recent xray imaging, prior imaging of lumbar spine consistent with degenerative changes and lumbar spondylosis. Pt engaged in HEP greater than 6 weeks without benefit. To note, neck pain 0/10 without radiculopathy significant ongoing improvement from prior cervical BENITO. cc:: CC: Renetta Blood NP Review of Systems ROS Status of ROS 10 or more systems reviewed and unremark able except as noted in history and below Musculoskeletal Reports: back pain PFSH PFSH Medical History Seizures ?R56.9 - Unspecified convulsions (ICD-10) Sleep apnea ?G47.30 - Sleep apnea, unspecified (ICD-10) Asthma ?J45.909 - Unspecified asthma, uncomplicated (ICD-10) Social History Smoking status: Former smoker Meds Home Medications and Allergies Home Medications ?Medication ?Instructions ?Recorded ?Confirmed ?Type albuterol 90 mcg/actuation aerosol 90 mcg inhalation .q6 PRN wheezing 05/16/23 11/19/23 History inhaler diclofenac sodium 75 mg 75 mg PO BID 05/16/23 11/19/23 History tablet,delayed release levetiracetam 500 mg tablet 500 mg PO DAILY 05/16/23 11/19/23 History mirtazapine 15 mg tablet (Remeron) 15 mg PO DAILY 05/16/23 11/19/23 History primidone 50 mg tablet 50 mg PO DAILY 05/16/23 11/19/23 History zonisamide 100 mg capsule 200 mg PO BEDTIME 05/16/23 11/19/23 History albuterol sulfate 90 mcg/actuation 2 inh inhalation Q6H PRN shortness 06/13/23 11/19/23 History aerosol inhaler of breath or wheezing biotin 10,000 mcg capsule 10,000 mcg PO DAILY 06/13/23 11/19/23 History calcium carbonate 600 mg-vitamin 1 tab PO DAILY 06/13/23 11/19/23 History D3 20 mcg (800 unit) tablet txqqlz-hwejykwd-wrpnxif 1 cap PO TID 06/13/23 11/19/23 History 24,000-76,000-120,000 unit capsule,delayed rel (Creon) magnesium oxide 400 mg PO DAILY 06/13/23 11/19/23 History melatonin 3 mg capsule 3 mg PO DAILY 06/13/23 11/19/23 History montelukast 10 mg tablet 10 mg PO DAILY 06/13/23 11/19/23 History pantoprazole 40 mg tablet,delayed 40 mg PO DAILY 06/13/23 11/19/23 History release sertraline 50 mg tablet 50 mg PO DAILY 06/13/23 11/19/23 History tizanidine 2 mg capsule (Zanaflex) 2 mg PO Q8H PRN pain, muscle 09/11/23 11/19/23 Rx spasms #14 caps nirmatrelvir 300 mg (150 mg See Rx Instructions PO .COMPLEX 11/04/23 11/19/23 Rx x2)-ritonavir 100 mg tablet,dose #30 ea pack (Paxlovid) Allergies Allergy/AdvReac Type Severity Reaction Status Date / Time bee venom protein (honey bee) Allergy Mild Verified 11/19/23 08:59 latex Allergy Verified 11/19/23 08:59 Exam Constitutional Documenting provider has reviewed patient's vital signs: yes Common normals: no apparent distress, oriented x3, healthy appearing, alert and well nourished General appearance: cooperative HENMT Common normals: normocephalic, hearing grossly normal bilaterally and moist oral mucous membranes Head and scalp: normocephalic Eye Common normals: PERRL Pupil: PERRL Neck & C-Spine Common normals: full ROM General: normal visual inspection Chest Common normals: inspection of chest normal Respiratory Common normals: normal respiratory effort, no retractions and no use of accessory muscles Back & Pelvis Lumbar spine/lower back: ROM limited, pain with ROM and straight leg raise negative bilaterally Other: positive facet loading tenderness over bilateral L1-2 L2-3 facets Extremity Common normals: normal to inspection and full ROM Neuro Common normals: oriented x3, CN's II-XII intact bilaterally, moves all ex tremities, no focal motor deficits, no sensory deficits noted, deep tendon reflexes 2+ bilaterally and gait normal Sensorium/orientation: alert Motor exam: strength 5/5 throughout and no movement abnormalities noted Psych Common normals: mental status grossly normal, thought process normal, cooperative, affect normal, speech normal and activity/motor behavior normal Speech: normal speech Thought process: normal thought process Results Additional Findings Additional findings: If on a controlled substance or opioids, I have checked an [place] report on this patient and there are no aberrancies noted in the prescribing history.??If on a controlled substance or opioid a drug screen was completed and reviewed within the last year, and if there has not been a drug screen completed we ordered one today to monitor higher risk, state monitored pain medication use. As part of providing excellent, safe, comprehensive care, the following was completed at our patient's visit: 1. A medication reconciliation and review to ensure accurate knowledge of current/active medications, including asking our patients to inform us about any iqtl-qhv-kjkbztc medications or herbal remedies/nutritional supplements/alternative remedies. 2. A review to specifically ensure our patients have had annual screening for screening for depression, screening for tobacco use, and screening for unhealthy alcohol use. For concerning screenings had a discussion with the patient, provided patient education, and recommended follow-up with primary care provider when appropriate. If patient noted with a risk of falling, they received education on strength, gait, and balance training to prevent future risk of falling. Assessment and Plan Assessment and Plan (1) Lumbar spondylosis: (2) Cervical spinal stenosis: (3) Cervical radiculopathy: (4) Carpal tunnel syndrome of left wrist: (5) Muscle spasm: Plan update lumbar xray with flexion and extension bilateral L1-2 L2-3 facet medial branch block x2 under fluoroscopy working towards thermal RFA, risks vs benefits reviewed. all questions answered. continue current medications f/u after each injection
--- OUTSIDE RECORDS SUMMARY | 2024-03-04 14:27 | XMS_ITS | CCD ---
[facility] Care Team Providers Care Battery Assembler Plastic Name Role Phone FELISA CARMEN CARMEN J Referring UnavailTarsha Mccrary Attending Unavailable AICHHOLZ, AUTOMATIC PATTERN EDGER CARMEN Consulting Unavailable AICHHOLZ, AUTOMATIC PATTERN EDGER CARMEN Primary Care Unavailable AICHHOLZ, AUTOMATIC PATTERN EDGER CARMEN Admitting Unavailable AICHHOLZ, AUTOMATIC PATTERN EDGER CARMEN Attending Unavailable GALO ., DR HANY Holder Admitting Unavailable GALO ., DR HANY Holder Attending Unavailable AICHHOLZ, AUTOMATIC PATTERN EDGER CARMEN Primary Care Unavailable JEFFERSON ., STACY Consulting Unavailable JEFFERSON ., STACY Consulting Unavailable GALO ., DR HANY Holder Admitting Unavailable GALO ., DR HANY Holder Attending Unavailable AICHHOLZ, AUTOMATIC PATTERN EDGER CARMEN Primary Care Unavailable JEFFERSON ., STACY Admitting Unavailable JEFFERSON ., STACY Attending Unavailable AICHHOLZ, AUTOMATIC PATTERN EDGER CARMEN Primary Care Unavailable WEST, DR JARETT Long Consulting Unavailable JEFFERSON ., STACY Consulting Unavailable AICHHOLZ, AUTOMATIC PATTERN EDGER CARMEN Primary Care Unavailable AICHHOLZ, AUTOMATIC PATTERN EDGER CARMEN Admitting Unavailable AICHHOLZ, AUTOMATIC PATTERN EDGER CARMEN Attending Unavailable AICHHOLZ, AUTOMATIC PATTERN EDGER CARMEN Consulting Unavailable ALBERTO REDMAN Consulting Unavailable JEFFERSON ., STACY Consulting Unavailable GALO ., DR HANY Holder Admitting Unavailable GALO ., DR HANY Holder Attending Unavailable AICHHOLZ, AUTOMATIC PATTERN EDGER CARMEN Primary Care Unavailable JEFFERSON ., STACY Consulting Unavailable GALO ., DR HANY Holder Admitting Unavailable GALO ., DR HANY Holder Attending Unavailable AICHHOLZ, AUTOMATIC PATTERN EDGER CARMEN Primary Care Unavailable AICHHOLZ, AUTOMATIC PATTERN EDGER CARMEN Consulting Unavailable AICHHOLZ, AUTOMATIC PATTERN EDGER CARMEN Primary Care Unavailable AICHHOLZ, AUTOMATIC PATTERN EDGER CARMEN Admitting Unavailable AICHHOLZ, AUTOMATIC PATTERN EDGER CARMEN Attending Unavailable AICHHOLZ, AUTOMATIC PATTERN EDGER CARMEN Admitting Unavailable AICHHOLZ, AUTOMATIC PATTERN EDGER CARMEN Primary Care Unavailable AICHHOLZ, AUTOMATIC PATTERN EDGER CARMEN Attending Unavailable AICHHOLZ, AUTOMATIC PATTERN EDGER CARMEN Consulting Unavailable AICHHOLZ, AUTOMATIC PATTERN EDGER CARMEN Consulting Unavailable AICHHOLZ, AUTOMATIC PATTERN EDGER CARMEN Primary Care Unavailable AICHHOLZ, AUTOMATIC PATTERN EDGER CARMEN Attending Unavailable AICHHOLZ, AUTOMATIC PATTERN EDGER CARMEN Admitting Unavailable LOWE, DAVID Admitting Unavailable LOWE, DAVID Attending Unavailable AICHHOLZ, AUTOMATIC PATTERN EDGER CARMEN Primary Care Unavailable DR NOEMÍ MORRISON Consulting Unavailable LOWE, DVAID Consulting Unavailable AICHHOLZ, AUTOMATIC PATTERN EDGER CARMNE Primary Care Unavailable AICHHOLZ, AUTOMATIC PATTERN EDGER CARMEN Attending Unavailable AICHHOLZ, AUTOMATIC PATTERN EDGER CARMEN Consulting Unavailable AICHHOLZ, AUTOMATIC PATTERN EDGER CARMEN Admitting Unavailable AICHHOLZ, AUTOMATIC PATTERN EDGER CARMEN Consulting Unavailable AICHHOLZ, AUTOMATIC PATTERN EDGER CARMEN Primary Care Unavailable AICHHOLZ, AUTOMATIC PATTERN EDGER CARMEN Attending Unavailable AICHHOLZ, AUTOMATIC PATTERN EDGER CARMEN Admitting Unavailable JARETT JARVIS Unavailable JESSE, APOORVA Admitting Unavailable JESSE, APOORVA Attending Unavailable AICHHOLZ, AUTOMATIC PATTERN EDGER CARMEN Primary Care Unavailable JESSE, APOORVA Consulting Unavailable LAKSHMIPATHY ., NARENDRANATH Admitting Letty vailable LAKSHMIPATHY ., NARENDRANATH Attending Letty vailable AICHHOLZ, AUTOMATIC PATTERN EDGER CARMEN Primary Care Unavailable COURTNEY STERLING Consulting Unavailable DR JARETT GARCÍA V Consulting Unavailable AICHHOLZ, AUTOMATIC PATTERN EDGER CARMEN Primary Care Unavailable AICHHOLZ, AUTOMATIC PATTERN EDGER CARMEN Admitting Unavailable AICHHOLZ, AUTOMATIC PATTERN EDGER CARMEN Attending Unavailable AICHHOLZ, AUTOMATIC PATTERN EDGER CARMEN Consulting Unavailable AICHHOLZ, AUTOMATIC PATTERN EDGER CARMEN Consulting Unavailable AICHHOLZ, AUTOMATIC PATTERN EDGER CARMEN Admitting Unavailable AICHHOLZ, AUTOMATIC PATTERN EDGER CARMEN Attending Unavailable AICHHOLZ, AUTOMATIC PATTERN EDGER CARMEN Primary Care Unavailable ILYA, NERI Admitting Unavailable ILYA, NERI Attending Unavailable AICHHOLZ, AUTOMATIC PATTERN EDGER CARMEN Primary Care Unavailable ILYA, NERI Consulting Unavailable DANIELLE KWONG Consulting Unavailable AICHHOLZ, AUTOMATIC PATTERN EDGER CARMEN Consulting Unavailable AICHHOLZ, AUTOMATIC PATTERN EDGER CARMEN Primary Care Unavailable AICHHOLZ, AUTOMATIC PATTERN EDGER CARMEN Admitting Unavailable AICHHOLZ, AUTOMATIC PATTERN EDGER CARMEN Attending Unavailable DR NOEMÍ MORRISON Consulting Unavailable STACY MABRY Consulting Unavailable KIARRA ., DR HANY Holder Admitting Unavailable KIARRA ., DR HANY Holder Attending Unavailable AICHHOLZ, AUTOMATIC PATTERN EDGER CARMEN Primary Care Unavailable GALO ., DR HANY Holder Consulting Unavailable KIARRA ., DR HANY Holder Admitting Unavailable GALO ., DR HANY Holder Attending Unavailable AICHHOLZ, AUTOMATIC PATTERN EDGER CARMEN Primary Care Unavailable KARINA ., ELIAS Admitting Unavailable KARINA ., ELIAS Attending Unavailable AICHHOLZ, AUTOMATIC PATTERN EDGER CARMEN Primary Care Unavailable KARINA ., ELIAS Consulting Unavailable CATHY DE PAZ Consulting Unavaila ble AICHHOLZ, AUTOMATIC PATTERN EDGER CARMEN Primary Care Unavailable WEST, DR JARETT Long Consulting Unavailable AICHHOLZ, AUTOMATIC PATTERN EDGER CARMEN Admitting Unavailable AICHHOLZ, AUTOMATIC PATTERN EDGER CARMEN Attending Unavailable AICHHOLZ, AUTOMATIC PATTERN EDGER CARMEN Consulting Unavailable HALKER ., COURTNEY Consulting Unavailable LAKSHMIPATHY ., NARENDRANATH Admitting Letty vailable LAKSHMIPATHY ., NARENDRANATH Attending Letty vailable AICHHOLZ, AUTOMATIC PATTERN EDGER CARMEN Primary Care Unavailable Asaad, Imad Unavailable NON STAFF Primary Care Provider UnavailMD Jhon Campbell Attending Provider NON STAFF Primary Care Provider UnavailMD Jemal Conteh Attending Provider Jemal Teague Unavailable NON STAFF Primary Care Unavailable Jemal Teague Admitting Unavailable Jemal Teague Attending Unavailable Asaad, Imad Admitting Unavailable Asaad, Imad Attending Unavailable NON STAFF Primary Care Unavailable AICHHOLZ, CARMEN Attending Unavailable AICHHOLZ, CARMEN Attending Unavailable AICHHOLZ, CARMEN Attending Unavailable DAVID ANGUIANO Attending Unavailable Allergies Allergy Classification Reported Allergen(s) Allergy Type Date of Onset Reaction(s) Facility (4 sources) Latex Drug allergy (disorder) 6 Rash [facility] Repository (3 sources) venom-honey bee; Translations: [venom-honey bee] Allergy to substance 3 Anaphylaxis [facility] (1 source) Latex Drug allergy Unknown [facility] Other (1 source) Bee Sting Drug allergy Unknown [facility] Other (1 source) Latex Drug allergy (disorder) 3 [facility] Repository (1 source) bee venom protein (honey bee) Drug allergy (disorder) 3 [facility] Repository Medications Current Medications Medication Drug Class(es) Dates Sig (Normalized) Sig (Original) Albuterol (5 sources) beta2-Adrenergic Agonist Start: 03-11-2019 Albuterol Sulfate Active 2 PUFF INHALATION As Directed March 10, 2019 11:00pm Start: 03-11-2019 Albuterol Sulf ate Active 2 PUFF INHALATION As Directed March 11, 2019 12:00am Albuterol Active amylase 107787 unt / lipase 04107 unt / protease 77141 unt delayed release oral capsule (5 sources) Start: 04-18-2023 take 89886-15251 capsules by mouth three times daily Ijchun-Gseqzvln-Xgsurkq (Creon) 24,000-76,000 -120,000 unit capsule,delayed release(DR/EC) Active 1 CAP PO Three times daily April 17, 2023 11:00pm biotin 10 mg oral capsule (2 sources) Start: 04-18-2023 take 78040 ug by mouth once daily at bedtime Biotin Active 53104 MCG PO Daily at bedtime April 17, [...] April 17, 2023 11:00pm polyethylene glycol 3350 345271 mg / potassium chloride 2970 mg / sodium bicarbonate 6740 mg / sodium chloride 5860 mg / sodium sulfate 66703 mg powder for oral solution (3 sources) [...] 07-30-2022 Episodic Other aftercare (1 source) Other halfway (current) drug therapy; Translations: [OTH JAIL CURRENT DRUG THERAPY] Onset: 09-13-2022 Episodic Other [...] on 08-27-2023 XR cervical spine w flex/ext [facility] [place] [address] XRay Report Signed Patient: Kalani Asencio MR#: [id number] 6 : 1970 Acct:[id number] Age/Sex: 53 / M ADM Date: 08/27/23 Loc: XD Room: Type: [facility] Attending Dr: Jemal Teague MD Copies to: [...] C4-C6. Impression dictated by: Andi Hill Jr., D.OKailey08/27/2023 4:23 PM Dictation Location: [place] [address] Transcribed By: [facility] 08/27/231622 Dictated By: Andi Hill Jr, DO 08/27/231621 Signed By: 08/27/231622 [facility] Rafael 04-18-2023 L - -------- Specimen: [id number] Received: 04/19/23 Status: ANUM Castillo Num: [id number] Spec Type: Surgical Subm Dr: Jhon Medina MD Tissues: A Colon Biopsy (RANDOM COLON BX) Procedures: HE/2, Gross/Micro L4 -------- Age/ Patient Sex Location Account Attending Physician -------- ElifKalani 53/M [id number] Jhon Medina MD -------- SPEC NUM: [id number] RECD: 04/19/23 STATUS: AUNM CASTILOL NUM: [id number] LELE: 04/18/23- [facility] DR: Jhon Medina MD ENTERED: 04/19/23 [facility] DR: LUCY TYPE: Surgical [...] microscopic examination confirms the diagnosis. CPT Codes 80985 -------- -------- Specimen: [id number] Received: 04/19/23 Status: ANUM Jonathan Num: [id number] Spec Type: Surgical Subm Dr: Jhon Medina MD Tissues: A Colon Biopsy (RANDOM COLON BX) Procedures: Twin WIN/Yolanda L4 -------- Patient: Kalani Asencio [id number] (Continued) -------- Signed (signature on file) Warren De La O MD 04/22/2380 [facility] AMYLASEon 03-12-2023 Amylase [Catalytic activity/Vol] 42 U/L Normal 25-115 The Comment on above: Performed By: #### T SH, LIPA, CMP, CHILANGO #### [id number] [place], [place] [address]ZlDr. Rakel Fraga CBC AUTO DIFFon 03-12-2023 BASO # 0.0 103/ul Normal 0.0-0.1 [facility] Comment on above: Performed By: #### U AMIC #### Laboratory [address] [place] [address] [address] Rakel Fraga Basophils/100 WBC (Bld) 0.4 % Normal 0.2-2.0 [facility] Comment on above: Performed By: #### U AMIC #### Laboratory [address] [address] [address] Rakel Fraga EO # 0.8 103/ul Critically high 0.0-0.7 [facility] Comment on above: Performed By: #### U AMIC #### Laboratory [address] [address] [address] Rakel Fraga Eosinophils/100 WBC (Bld) 8.8 % Critically high 0.9-7.0 [facility] Comment on above: Performed By: #### U AMIC #### Laboratory [address] [address] [address] Rakel Fraga Erythrocyte distribution width (RBC) [Ratio] 13.0 % Normal 11.0-15.0 [facility] Comment on above: Performed By: #### U AMIC #### Laboratory [address] [address] [address] Rakel Fraga Hematocrit (Bld) [Volume fraction] 44.1 % Normal 42.0-54.0 [facility] Comment on above: Performed By: #### U AMIC #### Laboratory [address] [address] [address] Rakel Fraga Hemoglobin (Bld) [Mass/Vol] 14.2 g/dL Normal 14.0-18.0 [facility] Comment on above: Performed By: #### U AMIC #### Laboratory [address] [address] [address] Rakel Fraga IG # 0.02 10e3/ul Normal 0.00-0.03 [facility] Comment on above: Performed By: #### U AMIC #### Laboratory [address] [address] [address] Rakel Fraga IG % 0.2 % Normal 0.0-0.5 [facility] Comment on above: Performed By: #### U AMIC #### Laboratory [address] [address] [address] Rakel Fraga LYMPH # 1.9 103/ul Normal 1.2-3.8 [facility] Comment on above: Performed By: #### U AMIC #### Laboratory [address] [place] [address] Dr. Rakel Fraga Lymphocytes/100 WBC (Bld) 20.1 % Critically low 20.5-60.0 [facility] Comment on above: Performed By: #### U AMIC #### Laboratory [address] [address] [address] Rakel Fraga MANUAL DIFF REQ NO Normal [facility] Comment on above: Performed By: #### U AMIC #### Laboratory [address] [place] [address] Dr. Rakel Fraga MCH (RBC) [Entitic mass] 29.8 pg Normal 25.9-34.0 [facility] Comment on above: Performed By: #### U AMIC #### Laboratory [address] [place] [address] [address] Rakel Fraga MCHC (RBC) [Mass/Vol] 32.2 g/dL Normal 29.9-35.2 The Comment on above: Performed By: #### U AMIC #### Laboratory [address] [place] [address] Dr. Rakel Fraga MCV (RBC) [Entitic vol] 92.5 fL Normal 80.0-94.0 [facility] Comment on above: Performed By: #### U AMIC #### Laboratory [address] [place] [address] [address] Rakel Fraga MONO # 0.5 103/ul Normal 0.3-0.8 [facility] Comment on above: Performed By: #### U AMIC #### Laboratory [address] [place] [address] [address] Rakel Fraga Monocytes/100 WBC (Bld) 5.0 % Normal 1.7-12.0 The Comment on above: Performed By: #### U AMIC #### Laboratory [address] [address] [address] Rakel Fraga NEUT # 6.0 103/ul Normal 1.4-6.5 The Comment on above: Performed By: #### U AMIC #### Laboratory [address] [place] [address] Dr. Rakel Fraga Neutrophils/100 WBC (Bld) 65.5 % Normal 43.0-75.0 [facility] Comment on above: Performed By: #### U AMIC #### Laboratory [address] [place] [address] Dr. Rakel Fraga Platelet mean volume (Bld) [Entitic vol] 9.4 fL Critically low 9.5-13.5 [facility] Comment on above: Performed By: #### U AMIC #### Laboratory [address] [place] [address] [address] Rakel Fraga PLT 284 103/ul Normal 150-450 The Comment on above: Performed By: #### U AMIC #### Laboratory [address] [place] [address] [address] Rakel Fraga RBC 4.77 106/ul Normal 4.70-6.10 The Comment on above: Performed By: #### U AMIC #### Laboratory [address] [address] [address] Rakel Fraga WBC 9.2 103/ul Normal 4.0-11.0 The Comment on above: Performed By: #### U AMIC #### Laboratory [address] [address] [address] Rakel Fraga LIPASEon 03-12-2023 Lipase [Catalytic activity/Vol] 76.0 U/L Normal 73.0-393.0 [facility] Comment on above: Performed By: #### T SH, LIPA, CMP, CHILANGO #### [id number] [place] [address]Dr. Rakel Fraga PROF 14(COMP METB)on 023 Albumin [Mass/Vol] 3.4 g/dL Normal 3.4-5.0 [facility] Comment on above: Performed By: #### T SH, LIPA, CMP, CHILANGO #### [id number] [place] [address]DrKailey Fraga Albumin/Globulin [Mass ratio] 0.8 {ratio} Normal [facility] Comment on above: Performed By: #### T SH, LIPA, CMP, CHILANGO #### [id number] [place], [place] [address]Dr. Rakel Fraga ALP [Catalytic activity/Vol] 159 U/L Critically high 46-116 [facility] Comment on above: Performed By: #### T SH, LIPA, CMP, CHILANGO #### [id number] [place], [place] [address]Dr. Rakel Fraga ALT [Catalytic activity/Vol] 24 U/L Normal 16-63 [facility] Comment on above: Performed By: #### T SH, LIPA, CMP, CHILANGO #### [id number] [place] [address]Dr. Rakel Fraga Anion gap [Moles/Vol] 12.2 mmol/L Normal [facility] Comment on above: Performed By: #### T SH, LIPA, CMP, CHILANGO #### [id number] [place] [address]Dr. Rakel Fraga AST [Catalytic activity/Vol] 16 U/L Normal 15-37 [facility] Comment on above: Performed By: #### T SH, LIPA, CMP, CHILANGO #### [id number] [place] [address]Dr. Rakel Fraga Bilirubin [Mass/Vol] 0.2 mg/dL Normal 0.2-1.0 The Comment on above: Performed By: #### T SH, LIPA, CMP, CHILANGO #### [id number] [place] [address]Dr. Rakel Fraga Calcium [Mass/Vol] 8.9 mg/dL Normal 8.5-10.[address] [facility] Comment on above: Performed By: #### T SH, LIPA, CMP, CHILANGO #### [id number] [place] [address]Dr. Rakel Fraga Chloride [Moles/Vol] 105 mmol/L Normal 98-107 The Comment on above: Performed By: #### T SH, LIPA, CMP, CHILANGO #### [id number] [place], [place] [address]Dr. Rakel Fraga CO2 [Moles/Vol] 28.7 mmol/L Normal 21.0-32.0 The [facility] Comment on above: Performed By: #### T SH, LIPA, CMP, CHILANGO #### [id number] [place], [place] [address]Dr. Rakel Fraga Creatinine [Mass/Vol] 1.27 mg/dL Normal 0.70-1.30 The Comment on above: Performed By: #### T SH, LIPA, CMP, CHILANGO #### [id number] [place], [place] [address]Dr. Rakel Fraga EGFR-AF ANDORRAN >60 Normal >=60 [facility] Comment on above: Performed By: #### T SH, LIPA, CMP, CHILANGO #### [id number] [place], [place] [address]Dr. Rakel Fraga EGFR-NON AF ANDORRAN 59 mL/min/1.73m2 Critically low >=60 The Comment on above: Performed By: #### T SH, LIPA, CMP, CHILANGO #### [id number] [place] [address]Dr. Rakel Fraga Globulin (S) [Mass/Vol] 4.4 g/dL Normal The Comment on above: Performed By: #### T SH, LIPA, CMP, CHILANGO #### [id number] [place] [address]Dr. Rakel Fraga Glucose [Mass/Vol] 95 mg/dL Normal 74-[address] [facility] Comment on above: Performed By: #### T SH, LIPA, CMP, CHILANGO #### [id number] [place] [address]Dr. Rakel Fraga Potassium [Moles/Vol] 3.9 mmol/L Normal 3.5-5.1 The Comment on above: Performed By: #### T SH, LIPA, CMP, CHILANGO #### [id number] [place], [place] [address]Dr. Rakel Fraga Protein [Mass/Vol] 7.8 g/dL Normal 6.4-8.[address] [facility] Comment on above: Performed By: #### T SH, LIPA, CMP, CHILANGO #### [id number] [place], [place] [address]Dr. Rakel Fraga Sodium [Moles/Vol] 142 mmol/L Normal 136-[address] [facility] Comment on above: Performed By: #### T SH, LIPA, CMP, CHILANGO #### [id number] [place], [place] [address]Dr. Rakel Fraga Urea nitrogen [Mass/Vol] 14.0 mg/dL Normal 7.0-18.0 The Comment on above: Performed By: #### T SH, LIPA, CMP, CHILANGO #### [id number] [place], [place] [address]Dr. Rakel Fraga Urea nitrogen/Creatinine [Mass ratio] 11.0 mg/mg Normal The Comment on above: Performed By: #### T SH, LIPA, CMP, CHILANGO #### [id number] [place] [address]Dr. Rakel Fraga SED RATE [facility] 2022 SED RATE 17 mm/hr Normal <=20 The Comment on above: Performed By: #### U AMIC #### Laboratory [address] [address] [address] Rakel Fraga TSHon 03-12-2023 TSH 0.793 uIU/mL Normal 0.358-3.740 [facility] Comment on above: Performed By: #### T SH, LIPA, CMP, CHILANGO #### [id number] [place] [address]Dr. Rakel Fraga UA RANDOM W/MICROSCOPICon BACTERIA NONE SEEN Normal NONE SEEN [facility] Comment on above: Performed By: #### B MP #### Laboratory [address] [place] [address] Dr. Rakel Fraga Bilirubin Ql (U) Negative Normal NEGATIVE [facility] Comment on above: Performed By: #### B MP #### Laboratory [address] [place] [address] Dr. Rakel Fraga CAST NONE SEEN Normal NONE SEEN [facility] Comment on above: Performed By: #### B MP #### Laboratory [address] [place] [address] Dr. Rakel Fraga Clarity (U) CLEAR Normal CLEAR [facility] Comment on above: Performed By: #### B MP #### Laboratory [address] [place] [address] Dr. Rakel Fraga Color (U) LT. YELLOW Normal YELLOW The Comment on above: Performed By: #### B MP #### Laboratory [address] [place] [address] Dr. Rakel Fraga Crystals LM Nom (Urine sed) NONE SEEN Normal NONE SEEN [facility] Comment on above: Performed By: #### B MP #### Laboratory [address] [place] [address] Dr. Rakel Fraga Epithelial cells LM Ql (Urine sed) NONE SEEN Normal NONE SEEN /RARE The Comment on above: Performed By: #### B MP #### Laboratory [address] [place] [address] Dr. Rakel Fraga Glucose Ql (U) Negative Normal NEGATIVE [facility] Comment on above: Performed By: #### B MP #### Laboratory [address] [address] [address] Rakel Fraga Hemoglobin Ql (U) Negative Normal NEGATIVE [facility] Comment on above: Performed By: #### B MP #### Laboratory [address] [address] [address] Rakel Fraga Ketones Ql (U) Negative Normal NEGATIVE [facility] Comment on above: Performed By: #### B MP #### Laboratory [address] [address] [address] Rakel Fraga LEUKOCYTES Negative Normal NEGATIVE [facility] Comment on above: Performed By: #### B MP #### Laboratory [address] [place] [address] Dr. Rakel Fraga MUCOUS NONE SEEN Normal NONE SEEN The Comment on above: Performed By: #### B MP #### Laboratory [address] [address] [address] Rakel Fraga Nitrite Ql (U) Negative Normal NEGATIVE [facility] Comment on above: Performed By: #### B MP #### Laboratory [address] [address] [address] Rakel Fraga pH (U) 5.5 [pH] Normal 5-9 [facility] Comment on above: Performed By: #### B MP #### Laboratory [address] [address] [address] Rakel Fraga RBC 0-2 Normal 0-2 [facility] Comment on above: Performed By: #### B MP #### Laboratory [address] [address] [address] Rakel Fraga SPEC GRAVITY >=1.030 Abnormal 1.005-<=1.025 [facility] Comment on above: Performed By: #### B MP #### Laboratory [address] [address] [address] aRkel Fraga UA PROTEIN Negative Normal NEGATIVE/ TRACE The Comment on above: Performed By: #### B MP #### Laboratory [address] [place] [address] Dr. Rakel Fraga Urobilinogen Qn (U) 0.2 {Arnoldo'U}/dL Normal 0.2 - 1. 0 The Comment on above: Performed By: #### B MP #### Laboratory [address] [place] [address] Dr. Rakel Fraga WBC NONE SEEN Normal NONE SEEN The Comment on above: Performed By: #### B MP #### Laboratory [address] [place] [address] Dr. Rakel Fraga XR KUB 1 VIEWon 03-12-2023 XR KUB 1 VIEW EXAMINATION: XR KUB 1 VIEW HISTORY: Abdominal pain COMPARISON: 02/23/2020 FINDINGS: BOWEL GAS PATTERN: No abnormal dilation or deviation. CALCIFICATIONS: None significant. OTHER: Negative. No abnormal gaseous collections. IMPRESSION: Normal bowel gas pattern Electronically authenticated by: JARETT GARCÍA Date: 2023-03-12 14:27 Normal The Covid-19 PCR (CVDTB)on SARS-CoV-2 (COVID-19) RNA SHADIA+probe Ql (Unsp spec) Not detected Normal NOT DETECTED The Comment on above: Result Comment: This test is not yet approved or cleared by the [place] FDA. When there are no FDA-approved or cleared tests available, and other criteria are met, FDA can make tests available under an emergency access mechanism called an Emergency Use Authorization (EUA). The EUA for this test is supported by the [place] of Health and Human Service's (HHS's) declaration [...] SARS-CoV-2. Performed By: #### B MP #### Laboratory [address] [place] [address] Dr. Rakel Fraga INFLUENZA A AND B AGon 01-14 INFLUANEGH SEE BELOW Normal The Comment on above: Result Comment: Nega tive for Flu A protein angiten. Infection due to Flu A cannot be ruled out. Flu A angiten in the sample may be below the detection limit of the test. Performed By: #### I NFLUAB #### Laboratory [address] [place] [address] Dr. Rakel Fraga INFLUBNEGH SEE BELOW Normal [facility] Comment on above: Result Comment: Nega tive for Flu B protein antigen. Infection due to Flu B cannot be ruled out. Flu B antigen in the sample may be below the detection limit of the test. Performed By: #### I NFLUAB #### Laboratory [address] [place] [address] Dr. Rakel Fraga INFLUENZA A AG Negative Normal NEGATIVE SEE COMMENT The Comment on above: Performed By: #### I NFLUAB #### Laboratory [address] [place] [address] Dr. Rakel Fraga INFLUENZA B AG Negative Normal NEGATIVE SEE COMMENT The Comment on above: Performed By: #### I NFLUAB #### Laboratory [address] [place] [address] Dr. Rakel Fraga SYMPTOMATIC COVID-19 ANTIGEN on 01-14-2023 EUA Statement SEE BELOW Normal [facility] Comment on above: Result Comment: [...] sooner. Performed By: #### U AMIC #### Laboratory [address] [place] [address] Dr. Rakel Fraga SARS-CoV-2 (COVID-19) RNA SHADIA+probe Ql (Unsp spec) Negative Normal NEGATIVE [facility] Comment on above: Performed By: #### U AMIC #### Laboratory [address] [place] [address] Dr. Rakel Fraga PANCREATIC ELASTASE FECALon 01-09-2023 Pancreatic Elastase, Fecal 90 ug Elast./g Critically low >200 [facility] Comment on above: Result Comment: Re sults verified by repeat testing Severe Pancreatic Insufficiency: <100 Moderate Pancreatic Insufficiency: 100 - 200 Normal: >200 Performed By: #### B MP #### Laboratory [address] [place] [address] Dr. Rakel Fraga CBC AUTO DIFFon 01-07-2023 BASO # 0.0 103/ul Normal 0.0-0.1 [facility] Comment on above: Performed By: #### C BC #### Laboratory [address] [place] [address] Dr. Rakel Fraga Basophils/100 WBC (Bld) 0.3 % Normal 0.2-2.0 [facility] Comment on above: Performed By: #### C BC #### Laboratory [address] [place] [address] Dr. Rakel Fraga EO # 0.7 103/ul Normal 0.0-0.7 The Comment on above: Performed By: #### C BC #### Laboratory [address] [place] [address] Dr. Rakel Fraga Eosinophils/100 WBC (Bld) 11.6 % Critically high 0.9-7.0 [facility] Comment on above: Performed By: #### C BC #### Laboratory [address] [place] [address] Dr. Rakel Fraga Erythrocyte distribution width (RBC) [Ratio] 13.5 % Normal 11.0-15.0 [facility] Comment on above: Performed By: #### C BC #### Laboratory [address] [place] [address] Dr. Rakel Fraga Hematocrit (Bld) [Volume fraction] 44.3 % Normal 42.0-54.0 [facility] Comment on above: Performed By: #### C BC #### Laboratory [address] [place] [address] Dr. Rakel Fraga Hemoglobin (Bld) [Mass/Vol] 14.4 g/dL Normal 14.0-18.0 [facility] Comment on above: Performed By: #### C BC #### Laboratory [address] [place] [address] Dr. Rakel Fraga IG # 0.01 10e3/ul Normal 0.00-0.03 [facility] Comment on above: Performed By: #### C BC #### Laboratory [address] [place] [address] Dr. Rakel Fraga IG % 0.2 % Normal 0.0-0.5 [facility] Comment on above: Performed By: #### C BC #### Laboratory [address] [place] [address] Dr. Rakel Fraga LYMPH # 2.0 103/ul Normal 1.2-3.8 The Comment on above: Performed By: #### C BC #### Laboratory [address] [place] [address] Dr. Rakel Fraga Lymphocytes/100 WBC (Bld) 32.5 % Normal 20.5-60.0 [facility] Comment on above: Performed By: #### C BC #### Laboratory [address] [place] [address] Dr. Rakel Fraga MANUAL DIFF REQ NO Normal [facility] Comment on above: Performed By: #### C BC #### Laboratory [address] [place] [address] Dr. Rakel Fraga MCH (RBC) [Entitic mass] 29.8 pg Normal 25.9-34.0 [facility] Comment on above: Performed By: #### C BC #### Laboratory [address] [address] [address] Rakel Fraga MCHC (RBC) [Mass/Vol] 32.5 g/dL Normal 29.9-35.2 [facility] Comment on above: Performed By: #### C BC #### Laboratory [address] [address] [address] Rakel Fraga MCV (RBC) [Entitic vol] 91.5 fL Normal 80.0-94.0 [facility] Comment on above: Performed By: #### C BC #### Laboratory [address] [address] [address] Rakel Fraga MONO # 0.4 103/ul Normal 0.3-0.8 [facility] Comment on above: Performed By: #### C BC #### Laboratory [address] [place] [address] Dr. Rakel Fraga Monocytes/100 WBC (Bld) 7.1 % Normal 1.7-12.0 [facility] Comment on above: Performed By: #### C BC #### Laboratory [address] [place] [address] Dr. Rakel Fraga NEUT # 2.9 103/ul Normal 1.4-6.5 [facility] Comment on above: Performed By: #### C BC #### Laboratory [address] [place] [address] Dr. Rakel Fraga Neutrophils/100 WBC (Bld) 48.3 % Normal 43.0-75.0 The Comment on above: Performed By: #### C BC #### Laboratory [address] [place] [address] Dr. Rakel Fraga Platelet mean volume (Bld) [Entitic vol] 9.6 fL Normal 9.5-13.5 The Comment on above: Performed By: #### C BC #### Laboratory [address] [place] [address] Dr. Rakel Fraga PLT 222 103/ul Normal 150-450 The Comment on above: Performed By: #### C BC #### Laboratory [address] [address] [address] Rakel Fraga RBC 4.84 106/ul Normal 4.70-6.10 The Comment on above: Performed By: #### C BC #### Laboratory [address] [address] [address] Rakel Fraga WBC 6.0 103/ul Normal 4.0-11.0 [facility] Comment on above: Performed By: #### C BC #### Laboratory [address] [address] [address] Rakel Fraga PROF 14(COMP METB)on 023 Albumin [Mass/Vol] 3.6 g/dL Normal 3.4-5.0 [facility] Comment on above: Performed By: #### C MP #### [id number] [address]DrKailey Fraga Albumin/Globulin [Mass ratio] 1.0 {ratio} Normal [facility] Comment on above: Performed By: #### C MP #### [id number] [address]Dr. Rakel Fraga ALP [Catalytic activity/Vol] 140 U/L Critically high 46-116 The Comment on above: Performed By: #### C MP #### [id number] [address]Dr. Rakel Fraga ALT [Catalytic activity/Vol] 23 U/L Normal 16-63 The Comment on above: Performed By: #### C MP #### [id number] [address]DrKailey Fraga Anion gap [Moles/Vol] 12.4 mmol/L Normal [facility] Comment on above: Performed By: #### C MP #### [id number] [address]DrKailey Fraga AST [Catalytic activity/Vol] 19 U/L Normal 15-37 The Comment on above: Performed By: #### C MP #### [id number] [address]DrKailey [place] Fraga Bilirubin [Mass/Vol] 0.2 mg/dL Normal 0.2-1.0 The Comment on above: Performed By: #### C MP #### [id number] [place], [place] [address]Dr. Rakel Fraga Calcium [Mass/Vol] 8.9 mg/dL Normal 8.5-10.1 [facility] Comment on above: Performed By: #### C MP #### [id number] [place], [place] [address]Dr. Rakel Fraga Chloride [Moles/Vol] 111 mmol/L Critically high 98-107 [facility] Comment on above: Performed By: #### C MP #### [id number] [place], [place] [address]Dr. Rakel Fraga CO2 [Moles/Vol] 27.8 mmol/L Normal 21.0-32.0 [facility] Comment on above: Performed By: #### C MP #### [id number] [place], [place] [address]Dr. Rakel Flakito Creatinine [Mass/Vol] 1.26 mg/dL Normal 0.70-1.30 The Comment on above: Performed By: #### C MP #### [id number] [place], [place] [address]Dr. Rakel Flakito EGFR-AF ANDORRAN >60 Normal >=60 [facility] Comment on above: Performed By: #### C MP #### [id number] [place], [place] [address]Dr. Rosaliechiquita Flakito EGFR-NON AF ANDORRAN 60 mL/min/1.73m2 Normal >=60 The Comment on above: Performed By: #### C MP #### [id number] [place], [place] [address]Dr. Rakel Fraga Globulin (S) [Mass/Vol] 3.6 g/dL Normal The Comment on above: Performed By: #### C MP #### [address] [place], [place] [address]Dr. Rakel Fraga Glucose [Mass/Vol] 118 mg/dL Critically high 74-106 [facility] Comment on above: Performed By: #### C MP #### [id number] [address]DrKailey Fraga Potassium [Moles/Vol] 4.2 mmol/L Normal 3.5-5.1 [facility] Comment on above: Performed By: #### C MP #### [id number] [place], [place] [address]DrKailey Fraga Protein [Mass/Vol] 7.2 g/dL Normal 6.4-8.2 [facility] Comment on above: Performed By: #### C MP #### [id number] [address]DrKailey Fraga Sodium [Moles/Vol] 147 mmol/L Critically high 136-145 [facility] Comment on above: Performed By: #### C MP #### [id number] [place], [place] [address]DrKailey Fraga Urea nitrogen [Mass/Vol] 17.0 mg/dL Normal 7.0-18.0 [facility] Comment on above: Performed By: #### C MP #### [id number] [place], [place] [address]Dr. Rakel Fraag Urea nitrogen/Creatinine [Mass ratio] 13.5 mg/mg Normal [facility] Comment on above: Performed By: #### C MP #### [id number] [place], [place] [address]Dr. Rakel Fraga [facility] 13 mm/hr Normal <=20 [facility] Comment on above: Performed By: #### S EDR #### [id number] [place], [place] [address]Dr. Rakel Fraga STOOL CULTUREon 01-06-2023 Campylobacter Culture Final report Normal [facility] Comment on above: Performed By: #### C XSTOOL #### Laboratory [address] [place] [address] Dr. Rakel Fraga E coli Shiga Toxin EIA Negative Normal Negative The Comment on above: Performed By: #### C XSTOOL #### Laboratory [address] [place] [address] Dr. Rakel Fraga Result 1 Comment Normal The Comment on above: Result Comment: No S almonella or Shigella recovered. Performed By: #### C XSTOOL #### Laboratory [address] [place] [address] Dr. Rakel Fraga Result Comment: No C ampylobacter species isolated. Salmonella/Shigella Screen Final report Normal The Comment on above: Performed By: #### C XSTOOL #### Laboratory [address] [place] [address] Dr. Rakel Fraga OVA AND PARASITE EXAMINATION on 01-04-2023 Ova + Parasite Exam Final report Normal The Comment on above: Result Comment: Thes e results were obtained using wet preparation(s) and trichrome stained smear. This test does not include testing for Cryptosporidium parvum, Cyclospora, or Microsporidia. Performed By: #### B MP #### Laboratory [address] [place] [address] Dr. Rakel Fraga Result 1 Comment Normal The Comment on above: Result Comment: No o va, cysts, or parasites seen. . One negative specimen does not rule out the possibility of a parasitic infection. Performed By: #### B MP #### Laboratory [address] [place] [address] Dr. Rakel Fraga C. DIFF PCRon 01-02-2023 C. DIFFICILE PCR Negative Normal NEGATIVE [facility] Comment on above: Performed By: #### U AMIC #### Laboratory [address] [place] [address] Dr. Rakel Fraga OCC BLD IMMUNO SCREENon 12-13 OCCULT BLOOD Negative Normal NEGATIVE The Comment on above: Performed By: #### U AMIC #### Laboratory [address] [place] [address] Dr. Rakel Fraga LEVETIRACETAM, SERUM OR PLAS MAon 11-09-2022 Levetiracetam, S 20.0 ug/mL Normal 10.0-40.0 [facility] Comment on above: Performed By: #### U AMIC #### Laboratory [address] [place] [address] Dr. Rakel Fraga ZONISAMIDEon 11-09-2022 Zonisamide 23.3 ug/mL Normal 10.0-40.0 The Comment on above: Result Comment: Dete ction Limit = 2.0 Performed By: #### B MP #### Laboratory [address] [place] [address] Dr. Rakel Fraga CBC AUTO DIFFon 11-07-2022 BASO # 0.1 103/ul Normal 0.0-0.1 [facility] Comment on above: Performed By: #### C BC #### Laboratory [address] [place] [address] Dr. Rakel Fraga Basophils/100 WBC (Bld) 0.5 % Normal 0.2-2.0 [facility] Comment on above: Performed By: #### C BC #### Laboratory [address] [place] [address] Dr. Rakel Fraga EO # 1.9 103/ul Critically high 0.0-0.7 [facility] Comment on above: Performed By: #### C BC #### Laboratory [address] [place] [address] Dr. Rakel Fraga Eosinophils/100 WBC (Bld) 17.1 % Critically high 0.9-7.0 The Comment on above: Performed By: #### C BC #### Laboratory [address] [place] [address] Dr. Rakel Fraga Erythrocyte distribution width (RBC) [Ratio] 12.9 % Normal 11.0-15.0 [facility] Comment on above: Performed By: #### C BC #### Laboratory [address] [place] [address] Dr. Rakel Fraga Hematocrit (Bld) [Volume fraction] 44.6 % Normal 42.0-54.0 [facility] Comment on above: Performed By: #### C BC #### Laboratory [address] [place] [address] Dr. Rakel Fraga Hemoglobin (Bld) [Mass/Vol] 13.8 g/dL Critically low 14.0-18.0 [facility] Comment on above: Performed By: #### C BC #### Laboratory [address] [place] [address] Dr. Rakel Fraga IG # 0.03 10e3/ul Normal 0.00-0.03 [facility] Comment on above: Performed By: #### C BC #### Laboratory [address] [place] [address] Dr. Rakel Fraga IG % 0.3 % Normal 0.0-0.5 [facility] Comment on above: Performed By: #### C BC #### Laboratory [address] [place] [address] Dr. Rakel Fraga LYMPH # 2.1 103/ul Normal 1.2-3.8 [facility] Comment on above: Performed By: #### C BC #### Laboratory [address] [place] [address] Dr. Rakel Fraga Lymphocytes/100 WBC (Bld) 18.7 % Critically low 20.5-60.0 [facility] Comment on above: Performed By: #### C BC #### Laboratory [address] [place] [address] Dr. Rakel Fraga MANUAL DIFF REQ NO Normal [facility] Comment on above: Performed By: #### C BC #### Laboratory [address] [place] [address] Dr. Rakel Fraga MCH (RBC) [Entitic mass] 29.3 pg Normal 25.9-34.0 The Comment on above: Performed By: #### C BC #### Laboratory [address] [place] [address] Dr. Rakel Fraga MCHC (RBC) [Mass/Vol] 30.9 g/dL Normal 29.9-35.2 The Comment on above: Performed By: #### C BC #### Laboratory [address] [address] [address] Rakel Fraga MCV (RBC) [Entitic vol] 94.7 fL Critically high 80.0-94.0 [facility] Comment on above: Performed By: #### C BC #### Laboratory [address] [address] [address] Rakel Fraga MONO # 0.6 103/ul Normal 0.3-0.8 [facility] Comment on above: Performed By: #### C BC #### Laboratory [address] [address] [address] Rakel Fraga Monocytes/100 WBC (Bld) 5.4 % Normal 1.7-12.0 [facility] Comment on above: Performed By: #### C BC #### Laboratory [address] [place] [address] Dr. Rakel Fraga NEUT # 6.4 103/ul Normal 1.4-6.5 [facility] Comment on above: Performed By: #### C BC #### Laboratory [address] [place] [address] Dr. Rakel Fraga Neutrophils/100 WBC (Bld) 58.0 % Normal 43.0-75.0 [facility] Comment on above: Performed By: #### C BC #### Laboratory [address] [place] [address] Dr. Rakel Fraga Platelet mean volume (Bld) [Entitic vol] 9.2 fL Critically low 9.5-13.5 [facility] Comment on above: Performed By: #### C BC #### Laboratory [address] [place] [address] Dr. Rakel Fraga PLT 261 103/ul Normal 150-450 The Comment on above: Performed By: #### C BC #### Laboratory [address] [place] [address] Dr. Rakel Fraga RBC 4.71 106/ul Normal 4.70-6.10 The Comment on above: Performed By: #### C BC #### Laboratory [address] [place] [address] Dr. Rakel Fraga WBC 11.0 103/ul Normal 4.0-11.0 [facility] Comment on above: Performed By: #### C BC #### Laboratory [address] [address] [address] Rakel Fraga PROF 14(COMP METB)on 023 Albumin [Mass/Vol] 3.6 g/dL Normal 3.4-5.0 [facility] Comment on above: Performed By: #### U AMIC #### Laboratory [address] [address] [address] Rakel Fraga Albumin/Globulin [Mass ratio] 0.9 {ratio} Normal [facility] Comment on above: Performed By: #### U AMIC #### Laboratory [address] [address] [address] Rakel Fraga ALP [Catalytic activity/Vol] 159 U/L Critically high 46-116 [facility] Comment on above: Performed By: #### U AMIC #### Laboratory [address] [address] [address] Rakel Fraga ALT [Catalytic activity/Vol] 20 U/L Normal 16-63 [facility] Comment on above: Performed By: #### U AMIC #### Laboratory [address] [place] [address] Dr. Rakel Fraga Anion gap [Moles/Vol] 11.4 mmol/L Normal [facility] Comment on above: Performed By: #### U AMIC #### Laboratory [address] [place] [address] Dr. Rakel Fraga AST [Catalytic activity/Vol] 15 U/L Normal 15-37 [facility] Comment on above: Performed By: #### U AMIC #### Laboratory [address] [address] [address] Rakel Fraga Bilirubin [Mass/Vol] 0.3 mg/dL Normal 0.2-1.0 [facility] Comment on above: Performed By: #### U AMIC #### Laboratory [address] [address] [address] Rakel Fraga Calcium [Mass/Vol] 9.2 mg/dL Normal 8.5-10.1 [facility] Comment on above: Performed By: #### U AMIC #### Laboratory [address] [address] [address] Rkael Fraga Chloride [Moles/Vol] 101 mmol/L Normal 98-107 [facility] Comment on above: Performed By: #### U AMIC #### Laboratory [address] [address] [address] Rakel Fraga CO2 [Moles/Vol] 28.5 mmol/L Normal 21.0-32.0 [facility] Comment on above: Performed By: #### U AMIC #### Laboratory [address] [place] [address] Dr. Rakel Fraga Creatinine [Mass/Vol] 1.07 mg/dL Normal 0.70-1.30 [facility] Comment on above: Performed By: #### U AMIC #### Laboratory [address] [place] [address] Dr. Rakel Fraga EGFR-AF ANDORRAN >60 Normal >=60 [facility] Comment on above: Performed By: #### U AMIC #### Laboratory [address] [place] [address] Dr. Rakel Fraga EGFR-NON AF ANDORRAN >60 Normal >=60 [facility] Comment on above: Performed By: #### U AMIC #### Laboratory [address] [place] [address] Dr. Rakel Fraga Globulin (S) [Mass/Vol] 4.0 g/dL Normal [facility] Comment on above: Performed By: #### U AMIC #### Laboratory [address] [address] [address] Rakel Fraga Glucose [Mass/Vol] 109 mg/dL Critically high 74-106 [facility] Comment on above: Performed By: #### U AMIC #### Laboratory [address] [address] [address] Rakel Fraga Potassium [Moles/Vol] 3.9 mmol/L Normal 3.5-5.1 [facility] Comment on above: Performed By: #### U AMIC #### Laboratory [address] [address] [address] Rakel Fraga Protein [Mass/Vol] 7.6 g/dL Normal 6.4-8.2 [facility] Comment on above: Performed By: #### U AMIC #### Laboratory [address] [place] [address] Dr. Rakel Fraga Sodium [Moles/Vol] 137 mmol/L Normal 136-145 [facility] Comment on above: Performed By: #### U AMIC #### Laboratory [address] [place] [address] Dr. Rakel Fraga Urea nitrogen [Mass/Vol] 11.0 mg/dL Normal 7.0-18.0 [facility] Comment on above: Performed By: #### U AMIC #### Laboratory [address] [place] [address] Dr. Rakel Fraga Urea nitrogen/Creatinine [Mass ratio] 10.3 mg/mg Normal [facility] Comment on above: Performed By: #### U AMIC #### Laboratory [address] [place] [address] Dr. Rakel Fraga US SINGLE QUAD RT [...] by: JARETT JARVIS Date: 2022-10-09 10:17 Normal [facility] MRI LSPINE WO CONon 09-17-20 MRI [...] by: JARETT GARCÍA Date: 2022-09-17 12:[address] [facility] [address] ABD/PELVIS WO CONon 09-10 CT [...] DANIELLE KWONG Date: 2022-09-09 23:49 Normal The CBC AUTO DIFFon 09-09-2022 BASO # 0.0 103/ul Normal 0.0-0.1 [facility] Comment on above: Performed By: #### U AMIC #### Laboratory [address] [place] [address] Dr. Rakel Fraga Basophils/100 WBC (Bld) 0.4 % Normal 0.2-2.0 [facility] Comment on above: Performed By: #### U AMIC #### Laboratory [address] [place] [address] Dr. Rakel Fraga EO # 0.3 103/ul Normal 0.0-0.7 The Comment on above: Performed By: #### U AMIC #### Laboratory [address] [place] [address] Dr. Rakel Fraga Eosinophils/100 WBC (Bld) 3.4 % Normal 0.9-7.0 [facility] Comment on above: Performed By: #### U AMIC #### Laboratory [address] [place] [address] Dr. Rakel Fraga Erythrocyte distribution width (RBC) [Ratio] 13.0 % Normal 11.0-15.0 [facility] Comment on above: Performed By: #### U AMIC #### Laboratory [address] [place] [address] Dr. Rakel Fraga Hematocrit (Bld) [Volume fraction] 43.8 % Normal 42.0-54.0 [facility] Comment on above: Performed By: #### U AMIC #### Laboratory [address] [address] [address] Rakel Fraga Hemoglobin (Bld) [Mass/Vol] 14.6 g/dL Normal 14.0-18.0 [facility] Comment on above: Performed By: #### U AMIC #### Laboratory [address] [address] [address] Rakel Fraga IG # 0.02 10e3/ul Normal 0.00-0.03 [facility] Comment on above: Performed By: #### U AMIC #### Laboratory [address] [place] [address] Dr. Rakel Fraga IG % 0.2 % Normal 0.0-0.5 [facility] Comment on above: Performed By: #### U AMIC #### Laboratory [address] [address] [address] Rakel Fraga LYMPH # 2.3 103/ul Normal 1.2-3.8 [facility] Comment on above: Performed By: #### U AMIC #### Laboratory [address] [place] [address] Dr. Rakel Fraga Lymphocytes/100 WBC (Bld) 25.3 % Normal 20.5-60.0 [facility] Comment on above: Performed By: #### U AMIC #### Laboratory [address] [address] [address] Rakel Fraga MANUAL DIFF REQ NO Normal [facility] Comment on above: Performed By: #### U AMIC #### Laboratory [address] [address] [address] Rakel Fraga MCH (RBC) [Entitic mass] 30.3 pg Normal 25.9-34.0 [facility] Comment on above: Performed By: #### U AMIC #### Laboratory [address] [place] [address] Dr. Rakel Fraga MCHC (RBC) [Mass/Vol] 33.3 g/dL Normal 29.9-35.2 [facility] Comment on above: Performed By: #### U AMIC #### Laboratory [address] [place] [address] Dr. Rakel Fraga MCV (RBC) [Entitic vol] 90.9 fL Normal 80.0-94.0 [facility] Comment on above: Performed By: #### U AMIC #### Laboratory [address] [place] [address] Dr. Rakel Fraga MONO # 0.8 103/ul Normal 0.3-0.8 [facility] Comment on above: Performed By: #### U AMIC #### Laboratory [address] [place] [address] Dr. Rakel Fraga Monocytes/100 WBC (Bld) 8.5 % Normal 1.7-12.0 [facility] Comment on above: Performed By: #### U AMIC #### Laboratory [address] [place] [address] Dr. Rakel Fraga NEUT # 5.5 103/ul Normal 1.4-6.5 [facility] Comment on above: Performed By: #### U AMIC #### Laboratory [address] [place] [address] Dr. Rakel Fraga Neutrophils/100 WBC (Bld) 62.2 % Normal 43.0-75.0 The Comment on above: Performed By: #### U AMIC #### Laboratory [address] [place] [address] Dr. Rakel Fraga Platelet mean volume (Bld) [Entitic vol] 9.8 fL Normal 9.5-13.5 The Comment on above: Performed By: #### U AMIC #### Laboratory [address] [place] [address] Dr. Rakel Fraga PLT 252 103/ul Normal 150-450 The Comment on above: Performed By: #### U AMIC #### Laboratory [address] [place] [address] Dr. Rakel Fraga RBC 4.82 106/ul Normal 4.70-6.10 [facility] Comment on above: Performed By: #### U AMIC #### Laboratory [address] [place] [address] Dr. Rakel Fraga WBC 8.9 103/ul Normal 4.0-11.0 [facility] Comment on above: Performed By: #### U AMIC #### Laboratory [address] [place] [address] Dr. Rakel Fraga PROF CHEM 8 (BAS METB)on Anion gap [Moles/Vol] 9.4 mmol/L Normal [facility] Comment on above: Performed By: #### B MP #### Laboratory [address] [place] [address] Dr. Rakel Fraga Calcium [Mass/Vol] 8.5 mg/dL Normal 8.5-10.1 [facility] Comment on above: Performed By: #### B MP #### Laboratory [address] [place] [address] Dr. Rakel Fraga Chloride [Moles/Vol] 104 mmol/L Normal 98-107 [facility] Comment on above: Performed By: #### B MP #### Laboratory [address] [place] [address] Dr. Rakel Fraga CO2 [Moles/Vol] 28.0 mmol/L Normal 21.0-32.0 [facility] Comment on above: Performed By: #### B MP #### Laboratory [address] [place] [address] Dr. Rakel Fraga Creatinine [Mass/Vol] 1.18 mg/dL Normal 0.70-1.30 [facility] Comment on above: Performed By: #### B MP #### Laboratory [address] [place] [address] Dr. Rakel Fraga EGFR-AF ANDORRAN >60 Normal >=60 [facility] Comment on above: Performed By: #### B MP #### Laboratory [address] [place] [address] Dr. Rakel Fraga EGFR-NON AF ANDORRAN >60 Normal >=60 [facility] Comment on above: Performed By: #### B MP #### Laboratory [address] [address] [address] Rakel Fraga Glucose [Mass/Vol] 92 mg/dL Normal 74-[address] [facility] Comment on above: Performed By: #### B MP #### Laboratory [address] [address] [address] Rakel Fraga Potassium [Moles/Vol] 3.4 mmol/L Critically low 3.5-5.1 [facility] Comment on above: Performed By: #### B MP #### Laboratory [address] [address] [address] Rakel Fraga Sodium [Moles/Vol] 138 mmol/L Normal 136-145 [facility] Comment on above: Performed By: #### B MP #### Laboratory [address] [address] [address] Rakel Fraga Urea nitrogen [Mass/Vol] 20.0 mg/dL Critically high 7.0-18.0 [facility] Comment on above: Performed By: #### B MP #### Laboratory [address] [address] [address] Rakel Fraga Urea nitrogen/Creatinine [Mass ratio] 16.9 mg/mg Normal [facility] Comment on above: Performed By: #### B MP #### Laboratory [address] HEAD WO CONon [...] DE PAZ Date: 2022-07-28 14:51 Normal The MRI CSPINE WO CONon 07-20-20 22 MRI [facility] WO CON EXAMINATION: MRI CSPINE WO CON HISTORY: Anesthesia of skin ; [...] NOEMÍ MORRISON Date: 2022-07-20 12:52 Normal The OVA AND PARASITE EXAMINATION on 07-13-2022 Ova + Parasite Exam Final report Normal The Comment on above: Result Comment: Thes e results were obtained using wet preparation(s) and trichrome stained smear. This test does not include testing for Cryptosporidium parvum, Cyclospora, or Microsporidia. Performed By: #### U AMIC #### Laboratory [address] [address] [address] Rakel Fraga Result 1 Comment Normal The Comment on above: Result Comment: No o va, cysts, or parasites seen. . One negative specimen does not rule out the possibility of a parasitic infection. Performed By: #### U AMIC #### Laboratory [address] [address] [address] Rakel Fraga CLOSTRIDIUM DIFFICILE PCRon 07-12-2022 C difficile Toxin Gene SHADIA Negative Normal Negative [facility] Comment on above: Performed By: #### C DIFNAA #### Laboratory [address] [place] [address] Dr. Rakel Fraga Physician Referralon 022 Physician Referral [id number]:127 Normal [facility] STOOL CULTUREon 07-10-2022 Campylobacter Culture Final report Normal [facility] Comment on above: Performed By: #### C XSTOOL #### [id number] [address]Dr. Rakel Fraga E coli Shiga Toxin EIA Negative Normal Negative The Comment on above: Performed By: #### C XSTOOL #### [id number] [id number]. Rakel Fraga Result 1 Comment Normal The Comment on above: Result Comment: No S almonella or Shigella recovered. Performed By: #### C XSTOOL #### [id number] [id number]. Rakel Fraga Result Comment: No C ampylobacter species isolated. Salmonella/Shigella Screen Final report Normal The Comment on above: Performed By: #### C XSTOOL #### [id number] [place], [place] [address] ABD/PELV W CONon 07-07-20 [...] ALBERTO REDMAN Date: 2022-07-07 16:50 Normal The AMYLASEon 07-04-2022 Amylase [Catalytic activity/Vol] 40 U/L Normal 25-115 The Comment on above: Performed By: #### L IPA, CHILANGO, CRP, CMP #### [id number] [place], [place] [address]KbKailey Fraga CBC AUTO DIFFon 07-04-2022 BASO # 0.0 103/ul Normal 0.0-0.1 [facility] Comment on above: Performed By: #### B MP #### Laboratory [address] [address] [address] Rakel Fraga Basophils/100 WBC (Bld) 0.5 % Normal 0.2-2.0 [facility] Comment on above: Performed By: #### B MP #### Laboratory [address] [address] [address] Rakel Fraga EO # 0.5 103/ul Normal 0.0-0.7 The Comment on above: Performed By: #### B MP #### Laboratory [address] [address] [address] Rakel Fraga Eosinophils/100 WBC (Bld) 6.8 % Normal 0.9-7.0 [facility] Comment on above: Performed By: #### B MP #### Laboratory [address] [place] [address] Dr. Rakel Fraga Erythrocyte distribution width (RBC) [Ratio] 13.0 % Normal 11.0-15.0 [facility] Comment on above: Performed By: #### B MP #### Laboratory [address] [address] [address] Rakel Fraga Hematocrit (Bld) [Volume fraction] 39.2 % Critically low 42.0-54.0 [facility] Comment on above: Performed By: #### B MP #### Laboratory [address] [address] [address] Rakel Fraga Hemoglobin (Bld) [Mass/Vol] 12.7 g/dL Critically low 14.0-18.0 [facility] Comment on above: Performed By: #### B MP #### Laboratory [address] [address] [address] Rakel Fraga IG # 0.02 10e3/ul Normal 0.00-0.03 The Comment on above: Performed By: #### B MP #### Laboratory [address] [address] [address] Rakel Fraga IG % 0.3 % Normal 0.0-0.5 The Comment on above: Performed By: #### B MP #### Laboratory [address] [place] [address] Dr. Rakel Fraga LYMPH # 1.5 103/ul Normal 1.2-3.8 [facility] Comment on above: Performed By: #### B MP #### Laboratory [address] [place] [address] Dr. Rakel Fraga Lymphocytes/100 WBC (Bld) 22.4 % Normal 20.5-60.0 [facility] Comment on above: Performed By: #### B MP #### Laboratory [address] [place] [address] Dr. Rakel Fraga MANUAL DIFF REQ NO Normal [facility] Comment on above: Performed By: #### B MP #### Laboratory [address] [place] [address] Dr. Rakel Fraga MCH (RBC) [Entitic mass] 29.8 pg Normal 25.9-34.0 [facility] Comment on above: Performed By: #### B MP #### Laboratory [address] [place] [address] Dr. Rakel Fraga MCHC (RBC) [Mass/Vol] 32.4 g/dL Normal 29.9-35.2 [facility] Comment on above: Performed By: #### B MP #### Laboratory [address] [place] [address] Dr. Rakel Fraga MCV (RBC) [Entitic vol] 92.0 fL Normal 80.0-94.0 [facility] Comment on above: Performed By: #### B MP #### Laboratory [address] [place] [address] Dr. Rakel Fraga MONO # 0.4 103/ul Normal 0.3-0.8 The Comment on above: Performed By: #### B MP #### Laboratory [address] [place] [address] Dr. Rakel Fraga Monocytes/100 WBC (Bld) 6.2 % Normal 1.7-12.0 [facility] Comment on above: Performed By: #### B MP #### Laboratory [address] [address] [address] Rakel Fraga NEUT # 4.2 103/ul Normal 1.4-6.5 [facility] Comment on above: Performed By: #### B MP #### Laboratory [address] [address] [address] Rakel Fraga Neutrophils/100 WBC (Bld) 63.8 % Normal 43.0-75.0 The Comment on above: Performed By: #### B MP #### Laboratory [address] [address] [address] Rakel Fraga Platelet mean volume (Bld) [Entitic vol] 9.8 fL Normal 9.5-13.5 The Comment on above: Performed By: #### B MP #### Laboratory [address] [place] [address] Dr. Rakel Fraga PLT 185 103/ul Normal 150-450 The Comment on above: Performed By: #### B MP #### Laboratory [address] [address] [address] Rakel Fraga RBC 4.26 106/ul Critically low 4.70-6.10 [facility] Comment on above: Performed By: #### B MP #### Laboratory [address] [address] [address] Rakel Fraga WBC 6.6 103/ul Normal 4.0-11.0 The Comment on above: Performed By: #### B MP #### Laboratory [address] [address] [address] aRkel Fraga CRPon 07-04-2022 CRP [Mass/Vol] mg/L Normal <=1.0 [facility] Comment on above: Performed By: #### L IPA, CHILANGO, CRP, CMP #### [id number] [address]Dr. Rakel Fraga LIPASEon 07-04-2022 Lipase [Catalytic activity/Vol] 65.0 U/L Critically low 73.0-393.0 [facility] Comment on above: Performed By: #### L IPA, CHILANGO, CRP, CMP #### [id number] [address]Dr. Rakel Fraga OCC BLD IMMUNO SCREENon 06-15 OCCULT BLOOD Negative Normal NEGATIVE [facility] Comment on above: Performed By: #### U AMIC #### Laboratory [address] [address] [address] Rakel Fraga PROF 14(COMP METB)on 022 Albumin [Mass/Vol] 3.7 g/dL Normal 3.4-5.0 [facility] Comment on above: Performed By: #### L IPA, CHILANGO, CRP, CMP #### [address] [address]Dr. Rakel Fraga Albumin/Globulin [Mass ratio] 1.2 {ratio} Normal [facility] Comment on above: Performed By: #### L IPA, CHILANGO, CRP, CMP #### [address] [address]Dr. Rakel Fraga ALP [Catalytic activity/Vol] 101 U/L Normal 46-116 [facility] Comment on above: Performed By: #### L IPA, CHILANGO, CRP, CMP #### [address] [address]Dr. Rakel Fraga ALT [Catalytic activity/Vol] 47 U/L Normal 16-63 [facility] Comment on above: Performed By: #### L IPA, CHILANGO, CRP, CMP #### [address] [address]Dr. Rakel Fraga Anion gap [Moles/Vol] 11.1 mmol/L Normal [facility] Comment on above: Performed By: #### L IPA, CHILANGO, CRP, CMP #### [address] [address]Dr. Rakel Fraga AST [Catalytic activity/Vol] 28 U/L Normal 15-37 [facility] Comment on above: Performed By: #### L IPA, CHILANGO, CRP, CMP #### [address] [address]Dr. Rakel Fraga Bilirubin [Mass/Vol] 0.5 mg/dL Normal 0.2-1.0 The Comment on above: Performed By: #### L IPA, CHILANGO, CRP, CMP #### [address] [place], [place] [address]Dr. Rakel Fraga Calcium [Mass/Vol] 8.7 mg/dL Normal 8.5-10.[address] [facility] Comment on above: Performed By: #### L IPA, CHILANGO, CRP, CMP #### [address] [place], [place] [address]Dr. Rakel Fraga Chloride [Moles/Vol] 110 mmol/L Critically high 98-107 [facility] Comment on above: Performed By: #### L IPA, CHILANGO, CRP, CMP #### [address] [place], [place] [address]Dr. Rakel Fraga CO2 [Moles/Vol] 26.0 mmol/L Normal 21.0-32.0 The [facility] Comment on above: Performed By: #### L IPA, CHILANGO, CRP, CMP #### [address] [place], [place] [address]Dr. Rakel Fraga Creatinine [Mass/Vol] 1.23 mg/dL Normal 0.70-1.30 [facility] Comment on above: Performed By: #### L IPA, CHILANGO, CRP, CMP #### [address] [place], [place] [address]Dr. Rakel Fraga EGFR-AF ANDORRAN >60 Normal >=60 [facility] Comment on above: Performed By: #### L IPA, CHILANGO, CRP, CMP #### [address] [place], [place] [address]Dr. Rakel Fraga EGFR-NON AF ANDORRAN >60 Normal >=60 The Comment on above: Performed By: #### L IPA, CHILANGO, CRP, CMP #### [address] [place], [place] [address]Dr. Rakel Fraga Globulin (S) [Mass/Vol] 3.2 g/dL Normal The Comment on above: Performed By: #### L IPA, CHILANGO, CRP, CMP #### [address] [address]Dr. Rakel Fraga Glucose [Mass/Vol] 82 mg/dL Normal 74-[address] [facility] Comment on above: Performed By: #### L IPA, CHILANGO, CRP, CMP #### [address] [address]Dr. Rakel Fraga Potassium [Moles/Vol] 4.1 mmol/L Normal 3.5-5.1 The Comment on above: Performed By: #### L IPA, CHILANGO, CRP, CMP #### [address] [address]Dr. Rakel Fraga Protein [Mass/Vol] 6.9 g/dL Normal 6.4-8.[address] [facility] Comment on above: Performed By: #### L IPA, CHILANGO, CRP, CMP #### [address] [address]Dr. Rakel Fraga Sodium [Moles/Vol] 143 mmol/L Normal 136-[address] [facility] Comment on above: Performed By: #### L IPA, CHILANGO, CRP, CMP #### [address] [address]Dr. Rakel Fraga Urea nitrogen [Mass/Vol] 23.0 mg/dL Critically high 7.0-18.0 The Comment on above: Performed By: #### L IPA, CHILANGO, CRP, CMP #### [address] [address]Dr. Rakel Fraga Urea nitrogen/Creatinine [Mass ratio] 18.7 mg/mg Normal The Comment on above: Performed By: #### L IPA, CHILANGO, CRP, CMP #### [address] [address]Dr. Rakel Fraga SED RATE [facility] 2021 SED RATE 7 mm/hr Normal <=20 The Comment on above: Performed By: #### S EDR #### [address] [address]Dr. Rakel Fraga UA RANDOM W/MICROSCOPICon BACTERIA NONE SEEN Normal NONE SEEN [facility] Comment on above: Performed By: #### U AMIC #### Laboratory [address] [address] [address] Rakel Fraga Bilirubin Ql (U) Negative Normal NEGATIVE The [facility] Comment on above: Performed By: #### U AMIC #### Laboratory [address] [address] [address] Rakel Fraga CAST NONE SEEN Normal NONE SEEN [facility] Comment on above: Performed By: #### U AMIC #### Laboratory [address] [address] [address] Rakel Fraga Clarity (U) CLEAR Normal CLEAR The Comment on above: Performed By: #### U AMIC #### Laboratory [address] [address] [address] Rakel Fraga Color (U) YELLOW Normal YELLOW The Comment on above: Performed By: #### U AMIC #### Laboratory [address] [address] [address] Rakel Fraga Crystals LM Nom (Urine sed) NONE SEEN Normal NONE SEEN [facility] Comment on above: Performed By: #### U AMIC #### Laboratory [address] [address] [address] Rakel Fraga Epithelial cells LM Ql (Urine sed) RARE Normal NONE SEEN /RARE The Comment on above: Performed By: #### U AMIC #### Laboratory [address] [address] [address] Rakel Fraga Glucose Ql (U) Negative Normal NEGATIVE [facility] Comment on above: Performed By: #### U AMIC #### Laboratory [address] [address] [address] Rakel Fraga Hemoglobin Ql (U) Negative Normal NEGATIVE [facility] Comment on above: Performed By: #### U AMIC #### Laboratory [address] [address] [address] Rakel Fraga Ketones Ql (U) Negative Normal NEGATIVE [facility] Comment on above: Performed By: #### U AMIC #### Laboratory [address] [place] [address] Dr. Rakel Fraga LEUKOCYTES Negative Normal NEGATIVE [facility] Comment on above: Performed By: #### U AMIC #### Laboratory [address] [place] [address] Dr. Rakel Fraga MUCOUS NONE SEEN Normal NONE SEEN The Comment on above: Performed By: #### U AMIC #### Laboratory [address] [address] [address] Rakel Fraga Nitrite Ql (U) Negative Normal NEGATIVE [facility] Comment on above: Performed By: #### U AMIC #### Laboratory [address] [place] [address] Dr. Rakel Fraga pH (U) 5.5 [pH] Normal 5-9 The Comment on above: Performed By: #### U AMIC #### Laboratory [address] [place] [address] Dr. Rakel Fraga RBC NONE SEEN Abnormal 0-2 The Comment on above: Performed By: #### U AMIC #### Laboratory [address] [place] [address] Dr. Rakel Fraga SPEC GRAVITY >=1.030 Abnormal 1.005-<=1.025 [facility] Comment on above: Performed By: #### U AMIC #### Laboratory [address] [place] [address] Dr. Rakel Fraga UA PROTEIN Negative Normal NEGATIVE/ TRACE The Comment on above: Performed By: #### U AMIC #### Laboratory [address] [place] [address] Dr. Rakel Fraga Urobilinogen Qn (U) 0.2 {Arnoldo'U}/dL Normal 0.2 - 1. 0 [facility] Comment on above: Performed By: #### U AMIC #### Laboratory [address] [place] [address] Dr. Rakel Fraga WBC NONE SEEN Normal NONE SEEN The Comment on above: Performed By: #### U [facility] #### Laboratory [address] [address] [address] Rakel Fraga NM HEPATOBILIARY SCAN W [...] by: JARETT GARCÍA Date: 2022-06-29 16:08 Normal [facility] US SINGLE QUAD RT UPPERon US [...] by: NOEMÍ MORRISON Date: 2022-06-25 13:03 Normal [facility] Coding Summaryon 04-05-2020 Coding Summary CODING DATE: 04/05/2020 [facility] STATUS: Home PAYOR: Medicare ADMIT [...] Concha Lovett Date Saved: 04/05/2020 12:34 pm [facility] Consent Formson 03-31-2020 Consent Forms [id number] .[facility] Med[facility] 03-14 Medication Management [id number] [facility] Anest[facility] Noteon 03-30-2020 Anesthesia Note Patient: KALANI [...] history): All Problems Depression / SNOMED CT 234359212 / Confirmed Asthma / SNOMED CT 216187112 / Confirmed Chronic maxillary sinusitis / SNOMED CT 68026103 / Confirmed Epileptic seizures / SNOMED CT 133248981 / Confirmed Lumbago / SNOMED CT 840915822 / Confirmed Lumbar spondylosis / SNOMED CT 137202212 / Confirmed Histories Family History: No family [...] Charted Heart Rate Peripheral 71 bpm (MAR 30:) Resp Rate 16 br/min (MAR 30:) SBP 130 mmHg (MAR 30:) DBP 89 mmHg (MAR 30:) SpO2 99 % (MAR 30:) Weight 70.000 kg (MAR 30:) Height 185.42 cm (MAR 30:) Airway: Mallampati classification: II (soft palate, fauces, uvula visible). Temporomandibular joint mobility: Good. Mouth: Adequate opening, Teeth ( Within normal limits ). Neck: Full range of motion. Respiratory: Lungs are clear to auscultation. Cardiovascular: Regular rhythm. Neurologic: Alert, Oriented. Review / Management Laboratory Results Plan [place] [employer] of Anesthesiologists#( A) physical status classification: Class II. Anesthetic Preoperative Plan Anesthesia: Monitored anesthesia care. Anesthetic plan, risks, benefits, and alternatives discussed with the patient and/or family. Patient verbalized understanding. [Electronically Signed on: 03/30/2020 09:37 EDT] Nando Saeed MD [Verified on: 03/30/2020 09:37 EDT] Nando Saeed MD Normal [facility] Inpatient Patient Summaryon 03-30-2020 Inpatient [place] [address] Patient Discharge Instructions Name: ELIF KALANI Mario : 1970 Patient Address: [address] [place] [address] Primary Care Provider: Name: Marcia Rodriguez DO After you are discharged if you find you have any questions, please, call [phone] ext [phone] to speak to a nurse. Discharge Diagnosis: [...] contact the [facility] 06/05 Crisis Hotline -Text 4HJHP [place] 077689. If you received any narcotics, sedation, or [...] business decisions or sign any legal documents [facility] would like to thank you for [...] for Disease Control and Prevention June 2014 [facility] MAGR Intraoperative Recordon 03-30-2020 MAGR Intraoperative Record MAGR Intra-Op Record Summary Primary Physician: Hany Galo MD Finalized Date/Time: 03/30/20 09:59:33 Pt. Name: KALANI ASENCIO /Sex: 1970 MALE Med Rec #: [id number] Physician: Hany Galo MD Financial #: [id number] Pt. Type: D Room/Bed: / Admit/Disch: 03/30/20 [...] Role Performed Surgeon - Primary Anesthesiologist of Manifold Operator Record Time In 03/30/20 09:48:00 03/30/20 09:48:00 03/30/20 09:48:00 Time Out 03/30/20 09:57:00 03/30/20 09:57:00 03/30/20 09:57:00 Procedure Medial Branch Medial Branch Medial Branch Block(Bilateral) Block(Bilateral) Block(Bilateral) Last Modified By: Mitzi Wu RN, Stephanie RN Sauer, Stephanie RN 03/30/20 09:57:46 03/30/20 09:57:46 03/30/20 09:57:46 Entry 4 Entry 5 Entry 6 Case Attendee Mitzi Wu RN, Kelly Calmes, Luke T Role Performed Manifold Operator Manifold Operator Air Bag Curer Time In 03/30/20 09:48:00 03/30/20 09:48:00 03/30/20 09:48:00 Time Out 06/17/20 09:57:00 03/30/20 09:57:00 03/30/20 09:57:00 Procedure Medial Branch Medial Branch Medial Branch Block(Bilateral) Block(Bilateral) Block(Bilateral) Last Modified By: Mitzi Wu RN, Stephanie RN Sauer, Stephanie RN 03/30/20 09:57:46 03/30/20 09:57:46 03/30/20 09:57:46 Entry 7 Entry 8 Entry 9 Case Attendee Angeli Belcher Courtney CST Calmes, Luke T Regina CST Role Performed Scrub Personnel Scrub Personnel Air Bag Curer Time In 03/30/20 09:48:00 03/30/20 09:48:00 03/30/20 [...] Agents (Im.270) Povidone-Iodine Prep By Abida Suh FIELD ARTILLERY SENIOR SERGEANT Prep Area (Im.270) Back Skin Prep Agent [...] Signed By: Mitzi Wu RN 03/30/20 09:59 [facility] MAGR Preoperative Recordon 0 03-30-2020 MAGR Preoperative Record MAGR Pre-Op Record Summary Primary Physician: Hany Galo MD Finalized Date/Time: 03/30/20 10:12:44 Pt. Name: KALANI ASENCIO./Sex: 1970 MALE Med Rec #: [id number] Physician: Hany Galo MD Financial #: [id number] Pt. Type: D Room/Bed: / Admit/Disch: 03/30/20 [...] Signed By: Kassie James RN 03/30/20 10:12 [facility] Operative Report - Surgeon/P hilary [...] on: 03/30/2020 09:56 EDT] Hany Galo MD [facility] Patient Handouton 03-30-2020 Patient Handout Pain Procedure [...] to your first appointment after your procedure [facility] Coding Summaryon 03-29-2020 Coding Summary CODING DATE: 03/29/2020 [facility] STATUS: Home PAYOR: Medicare ADMIT [...] Mandy Tarango Date Saved: 03/29/2020 03:20 pm [facility] History and Physicalon 03-29 History and Physical [id number] The patient has been examined and the medical record reviewed. The indications for surgery and exam are unchanged. [Electronically Signed on: 03/30/2020 08:37 EDT] Hany Galo MD [Verified on: 03/30/2020 08:37 EDT] Hany Galo MD [Transcribed on: 03/29/2020 14:32 EDT] [facility] Lab - Immunology/Serology Re sultson 03-29-2020 Lab - Immunology/Serology Results [id number] .00OTGTIFF [facility] Provider Orderson 03-28-2020 Provider Orders [id number] .00OTGTIFF [facility] SARS-CoV-2 (COVID-19) PCRon 03-28-2020 COVID-19 PCR Not Detected Normal Not Detected [facility] Comment on above: Order Comment: SENT TO [facility] 03/27/2020 SD Result Comment: Perf ormed at [facility] Department of Pathology [address] [place] [address] Results Called To Javier Dowell RN, Food Storeroom Clerk By LR And Read Back For Confirmation On 03/28/2020 15:36:12 EDT. Performed By: #### [id number] ####[facility] (DEFAULT)[address] [place] [address] Progress Note - Provideron 0 03-25-2020 Progress Note - Provider [id number] .00OTGTIFF [facility] Coding Summaryon 03-24-2020 Coding Summary CODING DATE: 03/24/2020 [facility] STATUS: Home PAYOR: Medicare ADMIT [...] Madeleine Baugh Date Saved: 03/24/2020 04:50 pm [facility] Coding Summary CODING DATE: 03/24/2020 [facility] STATUS: Home PAYOR: Medicare ADMIT [...] Madeleine Baugh Date Saved: 03/24/2020 01:02 pm [facility] Coding Summaryon 03-21-2020 Coding Summary CODING DATE: 03/21/2020 [facility] STATUS: Home PAYOR: Medicare ADMIT [...] Concha Lovett Date Saved: 03/21/2020 07:48 am [facility] Consent Formson 03-17-2020 Consent Forms [id number] [facility] Medication Managementon Medication Management [id number] [facility] Anesthesia Noteon 03-16-2020 Anesthesia Note Patient: KALANI [...] on: 03/16/2020 10:38 EDT] Warren Quach MD [facility] Anesthesia Note Patient: KALANI ASENCIO Age: 50 [...] history): All Problems Depression / SNOMED CT 552962158 / Confirmed Asthma / SNOMED CT 996516318 / Confirmed Chronic maxillary sinusitis / SNOMED CT 78992912 / Confirmed Epileptic seizures / SNOMED CT 823360743 / Confirmed Lumbago / SNOMED CT 877283025 / Confirmed Lumbar spondylosis / SNOMED CT 718644224 / Confirmed Histories Family History: No family [...] Oriented. Review / Management Laboratory Results Plan [place] Society of Anesthesiologists#( A) physical status classification: Class II. Anesthetic Preoperative Plan Anesthesia: Monitored anesthesia care. Anesthetic plan, risks, benefits, and alternatives discussed with the patient and/or family. Patient verbalized understanding. Informed consent was given. Anesthetic technique: Monitored anesthesia care. [Electronically Signed on: 03/16/2020 10:32 EDT] Warren Quach MD [Verified on: 03/16/2020 10:32 EDT] Warren Quach MD [facility] Inpatient Patient Summaryon 03-16-2020 [place] [address] Patient Discharge Instructions Name: KALANI ASENCIO : 1970 Patient Address: [address] [place] [address] Primary Care Provider: Name: Marcia Rodriguez DO After you are discharged if you find you have any questions, please, call [phone] ext [phone] to speak to a nurse. Discharge Diagnosis: Lumbago; Lumbar spondylosis Prescription Information: If you have been given a prescription for narcotics, seek immediate medical attention if you have any difficulty breathing or any sudden status changes such as confusion and sleepiness. If you or anyone you know is experiencing suicidal thoughts, mental health, alcohol and/or drug addiction problems; contact the [facility] 06/05 Crisis Hotline -Text 4HOPE to 795596. If you received any narcotics, sedation, or [...] business decisions or sign any legal documents [facility] would like to thank you for [...] for Disease Control and Prevention June 2014 [facility] Lab - Immunology/Serology Re sultson 03-16-2020 Lab - Immunology/Serology Results [id number] .00OTGTIFF [facility] MAGR Intraoperative Recordon 03-16-2020 MAGR Intraoperative Record MAGR Intra-Op Record Summary Primary Physician: Hany Galo MD Finalized Date/Time: 03/16/20 10:40:07 Pt. Name: KALANI ASENCIOO.B./Sex: 1970 MALE Med Rec #: [id number] Physician: Hany Galo MD Financial #: [id number] Pt. Type: D Room/Bed: / Admit/Disch: 03/16/20 [...] 2 Entry 3 Case Attendee Hany Galo MDWarren MD, Barbara RN Role Performed Surgeon - Primary Anesthesiologist of Manifold Operator Record Time In 03/16/20 10:30:00 03/16/20 10:30:00 03/16/20 10:30:00 Time Out 03/16/20 10:36:00 03/16/20 10:36:00 03/16/20 10:36:00 Procedure Medial Branch Medial Branch Medial Branch Block(Bilateral) Block(Bilateral) Block(Bilateral) Last Modified By: Swathi Beltran RN, Barbara RN Long, Barbara RN 03/16/20 10:36:38 03/16/20 10:36:38 03/16/20 10:36:38 Entry 4 Entry 5 Entry 6 Case Attendee Jorge MORRIS, Krystle Goldman Liberty G Role Performed Manifold Operator Manifold Operator Scrub Personnel Time In 03/16/20 10:30:00 03/16/20 10:30:00 03/16/20 10:30:00 Time Out 03/16/20 10:36:00 03/16/20 10:36:00 03/16/20 10:36:00 Procedure Medial Branch Medial Branch Medial Branch Block(Bilateral) Block(Bilateral) Block(Bilateral) Last Modified By: Swathi Beltran RN, Barbara RN Long, Barbara RN 03/16/20 10:36:38 03/16/20 10:36:38 03/16/20 10:36:38 Entry 7 Case Attendee Courtney Fay Role Performed Air Bag Curer Time In 03/16/20 10:30:00 Time Out 03/16/20 [...] Signed By: Swathi Beltran RN 03/16/20 10:40 [facility] Pre-Op Record Summary Primary Physician: Hany Galo MD Finalized Date/Time: 03/16/20 10:54:47 Pt. Name: KALANI ASENCIO./Sex: 1970 MALE Med Rec #: [id number] Physician: Hany Galo MD Financial #: [id number] Pt. Type: D Room/Bed: / Admit/Disch: 03/16/20 [...] consent correct. General Comments: Pt arrives to w ambualtory. PT has lower back pain#9. Pt denies cp,sob, cough or flu like symptoms. Pt denies pacemaker/defibillato r, has sleep apnea and wears a cpap. Finalized By: Blanka Szymanski RN Document Signatures Signed By: Blanka Szymanski RN 03/16/20 10:54 Normal [facility] Operative Report - Surgeon/P hilary 03-16-2020 [...] on: 03/16/2020 10:35 EDT] Hany Galo MD [facility] Patient Handouton 03-16-2020 Patient Handout Pain Procedure [...] to your first appointment after your procedure [facility] History and Physicalon 03-15 History and Physical [id number] .00OTGTIFF The patient has been examined and the medical record reviewed. The indications for surgery and exam are unchanged. [Electronically Signed on: 03/16/2020 10:25 EDT] Hany Galo MD [Verified on: 03/16/2020 10:25 EDT] Hany Galo MD [Transcribed on: 03/15/2020 13:40 EDT] BK Normal [facility] Lab - Reference Lab Resultso n 03-15-2020 Lab - Reference Lab Results [id number] .00OTGTIFF [facility] Progress Note - Provideron 0 03-15-2020 Progress Note - Provider [id number] .00OTGTIFF [facility] SARS-CoV-2 (COVID-19) PCRon 03-15-2020 COVID-19 PCR Not Detected Normal Not Detected [facility] Comment on above: Order Comment: Sent to [facility] 03/13/2020 11:05:18 EDT SD Performed By: #### 6 [id number] ####[facility] (DEFAULT)[address] [place] [address] Provider Orderson 03-14-2020 Provider Orders [id number] .00OTGTIFF [facility] Coding Summaryon 03-10-2020 Coding Summary CODING DATE: 03/10/2020 [facility] STATUS: Home PAYOR: Medicare ADMIT [...] Madeleine Baugh Date Saved: 03/10/2020 03:34 pm [facility] Coding Summaryon 03-08-2020 Coding Summary CODING DATE: 03/08/2020 [facility] STATUS: Home PAYOR: Medicare ADMIT [...] Madeleine Baugh Date Saved: 03/08/2020 09:40 am [facility] Coding Summaryon 02-29-2020 Coding Summary CODING DATE: 02/29/2020 [facility] STATUS: Home PAYOR: Medicare APC [...] Tarango Revised Date Saved: 02/24/2020 08:52 am [facility] Controlled Substances Agreem entson 02-26-2020 Controlled Substances Agreements [id number] .00OTGTIFF [facility] Progress Note - Provideron 0 02-25-2020 Progress Note - Provider [id number] .00OTGTIFF [facility] XR Spine Lumbosacral Complet e w/ Bendingon [...] am Technologist: [facility] XR Spine Thoracic 3 Viewson 02-23-2020 XR [...] Bassett MD 02/26/20 6:21 am Technologist: PEDRO [facility] Vital Signs Date Time Vital Sign Value Performing Clinician Facility 08-29-2023 14:20-0500 Body height 187.96 cm Jemal Teague Other [facility] Other 08-29-2023 14:20-0500 Body mass index (BMI) [Ratio] 19.9 kg/m2 Jemal Teague Other [facility] Other 08-29-2023 14:20-0500 Body weight 70.31 kg Jemal Teague Other [facility] Other 06-11-2023 14:15-0400 Body height 187.96 cm [employer] Other [facility] Other 06-11-2023 14:15-0400 Body mass index (BMI) [Ratio] 19.9 kg/m2 Imad Asaad Other [facility] Other 06-11-2023 14:15-0400 Body weight 70.31 kg Imad Asaad Other [facility] Other 06-11-2023 14:15-0400 Diastolic blood pressure 71 mm[Hg] Imad Asaad Other [facility] Other 06-11-2023 14:15-0400 Respiratory rate 18 /min Imad Asaad Other [facility] Other 06-11-2023 14:15-0400 Systolic blood pressure 122 mm[Hg] Imad Asaad Other [facility] Other 04-18-2023 14:50-0400 Diastolic blood pressure 77 mm[Hg] [facility] 04-18-2023 14:50-0400 Heart rate 73 /min [facility] 04-18-2023 14:50-0400 Respiratory rate 16 /min [facility] 04-18-2023 14:50-0400 SaO2% (BldA) [Mass fraction] 98 % [facility] 04-18-2023 14:50-0400 Systolic blood pressure 106 mm[Hg] [facility] 04-18-2023 12:36-0400 Body height 185.42 cm [facility] 04-18-2023 12:36-0400 Body temperature 98.2 [degF] [facility] 04-18-2023 12:36-0400 Body weight 68.03 kg [facility] 03-13-2023 14:00-0400 Body height 187.96 cm Imad Asaad Other [employer] [facility] Other 03-13-2023 14:00-0400 Body mass index (BMI) [Ratio] 19.51 kg/m2 Imad Asaad Other [facility] Other 03-13-2023 14:00-0400 Body weight 68.95 kg Imad Asaad Other [facility] Other 03-13-2023 14:00-0400 Diastolic blood pressure 70 mm[Hg] Imad Asaad Other [facility] [employer] Other 03-13-2023 14:00-0400 Respiratory rate 18 /min Imad Asaad Other [employer] Other 03-13-2023 14:00-0400 Systolic blood pressure 150 mm[Hg] Imad Asaad Other [employer] Other Encounters Encounter Date Encounter Type Care Provider Facility Start: 02-27-2024 End: 02-27-2024 ambulatory DAVID LOWE Not Available Start: 02-24-2024 End: 02-24-2024 ambulatory CARMEN AICHHOLZ Not Available Start: 01-13-2024 End: 01-13-2024 ambulatory CARMEN AICHHOLZ Not Available Start: 10-09-2023 End: 10-09-2023 ambulatory CARMEN AICHHOLZ Not Available Start: 08-29-2023 End: 08-29-2023 ambulatory Jemal Teague Other [facility] [employer] Other Start: 08-29-2023 Office outpatient new 30 minutes Jemal Ho [facility] Start: 08-27-2023 End: 08-27-2023 ambulatory NON STAFF Facility:[facility] Start: 08-27-2023 End: 08-27-2023 ambulatory NON STAFF [facility] Work Phone: Start: 08-27-2023 End: 08-27-2023 Patient encounter procedure [facility] [place] Work Phone: Start: 06-11-2023 End: 06-11-2023 ambulatory Imad Asaad Other [employer] Other Start: 06-11-2023 Office outpatient visit 25 minutes Imad Asaad [facility] Start: 04-18-2023 End: 04-18-2023 ambulatory Imad Asaad Facility:[facility] Start: 04-18-2023 End: 04-18-2023 Admission to same day surgery center [facility] Work Phone: Start: 04-18-2023 End: 04-18-2023 ambulatory NON STAFF [facility] Work Phone: Start: 03-13-2023 End: 03-13-2023 ambulatory Imad Asaad Other [facility] [employer] Other Start: 03-13-2023 Office outpatient new 45 minutes Imad Asaad [facility] Start: 03-12-2023 End: 03-13-[address] JARETT GARCÍA Facility:[facility] Start: 01-31-2023 End: 02-01-2023 ambulatory ANNABELLA NUNES . Facility:[facility] Start: 01-14-2023 End: 01-14-2023 ambulatory AUTOMATIC PATTERN EDGER CARMEN PRATT Facility:[facility] Start: 01-07-2023 End: 01-08-2023 ambulatory [...] NERI CARABALLO Facility:[facility] Start: 08-14-2022 ambulatory CARMEN Genao FELISA Fa cility:[facility] Start: 08-09-2022 End: 08-10-2022 ambulatory STACY JEFFERSON . Facility:[facility] Start: 07-28-2022 End: 07-28-2022 ambulatory ELIAS COLLINS . Facility:[facility] Start: 07-20-2022 End: 07-21-2022 ambulatory DAVID ANGUIANO Facility:[facility] Start: 07-10-2022 End: 07-10-2022 ambulatory AUTOMATIC PATTERN EDGER CARMEN GALEANASTACEYJoe Facility:[facility] Start: 07-10-2022 ambulatory CARMEN CARMEN FELISA Faci lity:Too Start: 07-06-2022 End: 07-07-2022 ambulatory AUTOMATIC PATTERN EDGER CARMEN GALEANASTACEYJoe Facility:[facility] Start: 07-05-2022 End: 07-05-2022 ambulatory AUTOMATIC PATTERN EDGER CARMEN GALEANACHANTELLE Facility:[facility] Start: 07-04-2022 End: 07-05-2022 ambulatory AUTOMATIC PATTERN EDGER CARMEN GALEANASTACEYJoe Facility:[facility] Start: 06-29-2022 End: 06-30-2022 ambulatory AUTOMATIC PATTERN EDGER CARMNE GALEANASTACEYJoe Facility:[facility] Start: 06-25-2022 End: 06-26-2022 ambulatory SHELIA PRATT Facility:[facility] Start: 05-10-2022 End: 05-11-2022 ambulatory STACY JEFFERSON . Facility: Procedures Date Procedure Procedure Detail Performing Clinician Start: 08-27-2023 X-ray of cervical spine Start: 04-18-2023 Colonoscopy Plan of Treatment Date Care Activity Detail Author Start: 05-02-2023 ambulatory Ambulatory Facility:[facility] Start: 04-18-2023 [facility] Patient Education Hemorrhoids (DC) [facility] Work Phone: Payers Date Payer Category Payer Self-pay [id number] 2014 Unknown [id number] 1970 Unknown [id number] 2.16.8 40.1.168304.3.579.2.727 1970 Unknown [id number] 2.16.84 0.1.379195.3.579.2.593 1970 Unknown [id number] 2.16.84 0.1.837565.3.579.2.593 1970 Unknown [id number] 2.16.84 0.1.267384.3.579.2.593 1969 Unknown [id number] 2.16.84 0.1.129826.3.579.2.593 1969 Unknown [id number] 2.16.84 0.1.976027.3.579.2.593 1969 Unknown [id number] .16.84 0.1.709053.3.579.2.593 1969 Unknown [id number] 2.16.84 0.1.401158.3.579.2.593 1969 Unknown [id number] .16.84 0.1.310799.3.579.2.593 1969 Unknown [id number] 2.16.84 0.1.378510.3.579.2.593 1969 Unknown [id number] .16.84 0.1.663961.3.579.2.593 1969 Unknown [id number] 2.16.84 0.1.179977.3.579.2.593 1969 Unknown [id number] .16.84 0.1.143159.3.579.2.593 1969 Unknown [id number] 2.16.84 0.1.081045.3.579.2.593 1969 Unknown [id number] .16.84 0.1.030657.3.579.2.593 1969 Unknown [id number] .16.84 0.1.961817.3.579.2.593 1969 Unknown [id number] 2.16.84 0.1.587609.3.579.2.593 1969 Unknown [id number] 2.16.84 0.1.152797.3.579.2.593 1969 Unknown [id number] 2.16.84 0.1.642572.3.579.2.593 1969 Unknown [id number] 2.16.84 0.1.336426.3.579.2.593 1969 Unknown [id number] 2.16.84 0.1.837227.3.579.2.593 1969 Unknown [id number] 2.16.84 0.1.534871.3.579.2.593 1969 Unknown [id number] 2.16.84 0.1.356220.3.579.2.593 1969 Unknown [id number] 2.16.84 0.1.996324.3.579.2.593 1969 Unknown [id number] 2.16.84 0.1.801502.3.579.2.593 1969 Unknown [id number] 2.16.84 0.1.693610.3.579.2.1259 1969 Unknown [id number] 2.16.84 0.1.967576.3.579.2.1259 1969 Unknown [id number] 2.16.84 0.1.172643.3.579.2.1259 1970 Unknown [id number] .16.840 .1.490317.3.579.2.1259 1960 Medicaid [id number] 1960 Medicare [id number] Medicare Medicare Outpatient [id number] 9A [id number] Unknown [id number] 2.16.8 40.1.681299.3.579.2.531 Unknown [id number] 2.16.8 40.1.515862.3.579.2.531 Social History Date Type Detail Facility Sex Assigned At [facility] Other Start: 04-18-2023 End: 04-18-2023 Tobacco smoking status NHIS Ex-smoker (finding) [facility] Start: 1970 Sex Assigned At Male [facility] Goals Date Patient Goal Desired Activity [...] Carpal tunnel syndrome, left (ICD-10 - G56.02) [employer] [facility] [employer] Other 08-29-2023 Evaluation note* Encounter Date Diagnosis Assessment Notes Treatment Notes Treatment Clinical Notes May, Diarrhea (ICD-10 - R19.7) May, Exocrine pancreatic insufficiency (ICD-10 - K86.81) [facility] Other [facility]* Encounter Date Diagnosis Assessment Notes Treatment Notes Treatment Clinical Notes February, Diarrhea (ICD-10 - R19.7) February, Pancreatic insufficiency (ICD-10 - K86.89) February, Weight loss (ICD-10 - R63.4) [facility] [employer] Other 04-20-2023 NoteCONSULTATION CONSULTATION DATE: 01/31/2023 TO: [...] our patients to inform us about any hoqa-vez-jjmqibe medications or herbal remedies/nutritional supplements/alternative remedies. 2. [...] treatment options with their primary care provider.The [id number] Note CONSULTATION CONSULTATION DATE: 11/01/2022 HISTORY OF [...] otherwise indicated. Patient agrees with this plan.The [id number] Note CONSULTATION CONSULTATION DATE: 09/27/2022 HISTORY OF [...] be followed up in the clinic thereafter.The 09-12-2022 NoteCONSULTATION CONSULTATION DATE: 09/12/2022 HISTORY OF [...] of care and all questions were answered.The [id number] NoteCONSULTATION PROCEDURE DATE: 08/09/2022 PREOPERATIVE DIAGNOSIS: Bilateral [...] in the clinic in three months' time.The [id number] NoteCONSULTATION CONSULTATION DATE: 08/09/2022 HISTORY OF PRESENT [...] and patient is in agreement with this.The 05-10-2022 NoteCONSULTATION CONSULTATION DATE: 05/10/2022 HISTORY OF [...] otherwise indicated. Patient agrees with the plan.The Evaluation noteNo assessment information availableL[facility] Work Phone: History and physical note Author Jhon Medina [facility] April 18, 2023 1:56pm Note Date/Time April 18, 2023 1:56p [facility] [address] [place] [address] Gastroenterology H&P Signed Patient: Kalani Asencio MR#: [id number] : 1970 Acct:[id number] Age/Sex: 53 / M Adm Date: 3 Loc: Room: Type: [facility] Attending Dr: Jhon Medina MD Copies to: [...] <Electronically signed by Jhon Medina MD> 04/18/23 1350 [facility] Work Phone: History general Narrative - Reported* Type Description Date Medical History Asthma Medical History Depression Medical History Seasonal Allergies Medical History seizure disorder Surgical History Back surgery 2009 Surgical History bilat knee surgies 2008 [employer] Other History general Narrative - Reported* Type Description Date Medical History Asthma Medical History Depression Medical History Seasonal Allergies Medical History seizure disorder Medical History anxiety Surgical History Back surgery 2009 Surgical History bilat knee surgies 2008 Hospitalization History see above [facility] Other Hospital Discharge instructions Additional Instructions DISCHARGE [...] scheduled -Follow up with PCP. -Office number [phone]. [facility] Work Phone: Reason for visit NarrativePATIENT IS HERE FOR DIARRHEA AND PANCREATIC INSUFFICIENCY AT THE REQUEST OF CARMEN PRATT. RECENT TESTING IN REFERRAL [employer] Other Summary Purpose Family History No Family [...] 05 8:18am Hospital Course Note [facility] SURGERY Clinical Discharge Summary PERSON INFORMATION Name KALANI ASENCIO Age 50 Years 1970 Sex MALE Language South African PCP Marcia Rodriguez DO Marital Status Med Service Pain Management Surgery Acct# Arrival 03/30/2020 08:43:00 Visit Reason Low back pain Acuity LOS 006 00:00 Address: [address] [place] [address] Comment: PROVIDER INFORMATION VITALS INFORMATION Vital Sign [...] history): All Problems Depression / SNOMED CT 677293155 / Confirmed Asthma / SNOMED CT 072880808 / Confirmed Chronic maxillary sinusitis / SNOMED CT 03086631 / Confirmed Epileptic seizures / SNOMED CT 857237931 / Confirmed Lumbago / SNOMED CT 216787880 / Confirmed Lumbar spondylosis / SNOMED CT 760689330 / Confirmed Physical Examination VS/Measurements Vital Signs (last 24 hrs) Last Charted Heart Rate Peripheral 71 bpm (MAR 30:09) Resp Rate 16 br/min (MAR 30:09) SBP 137 mmHg (MAR 30:53) DBP 93 mmHg (MAR 30:53) SpO2 98 % (MAR 30:50) Weight 70.000 kg (MAR 30:) Height 185.42 cm (MAR 30:) Rev (more content not included)... Procedure Findings Note Patient: KALANI ASENCIO MR N: [id number] Age: 50 years Sex: MALE : 1970 Associated Diagnoses: None Author: Nando Saeed MD Postoperative Information Post Operative Note: Operative Day. Anesthetic utilized: Monitored anesthesia care. Health Status Allergies: Allergic Reactions (All) No Known Medication Allergies Problem list (past medical history): All Problems Depression / SNOMED CT 501345019 / Confirmed Asthma / SNOMED CT 370044351 / Confirmed Chronic maxillary sinusitis / SNOMED CT 90915119 / Confirmed Epileptic seizures / SNOMED CT 918146292 / Confirmed Lumbago / SNOMED CT 764099864 / Confirmed Lumbar spondylosis / SNOMED CT 047716830 / Confirmed Physical Examination VS/Measurements Vital Signs (last 24 hrs) Last Charted Heart Rate Peripheral 71 bpm (MAR 30:) Resp Rate 16 br/min (MAR 30:) SBP 137 mmHg (MAR 30:53) DBP 93 mmHg (MAR 30:53) SpO2 98 % (MAR 30:50) Weight 70.000 kg (MAR 30:) Height 185.42 cm (MAR 30:) Rev (more content not included)... Chief Complaint and Reason for Visit Chief Complaint Diarrhea, Weight Los s Chief Complaint M54.2 Reason for Referral Reason evaluate and treat f or cervical pain Diagnosis 1 Cervical pain (neck) (M54.2) Referral Organization [facility] Referring Provider First Name Jemal Referring Provider Last Name Ho Referring Provider Specialty Neurologica l Surgery Referred Organization Referred Provider [facility] wilfridostacie Referred Address [address] [place], [place],[address] Referred Provider Specialty Pain Medicin e Referral Priority Routine Additional Source Comments (unrecognized sect ion and content) No Status Records FoundNo Status Records FoundNo Status Records FoundNo Status Records FoundNo Status Records Found INFORMATION SOURCE (unrecogn ized section and content) DATE CREATED AUTHOR 04/30/2020 [facility] DATE CREATED AUTHOR AUTHOR'S ORGANIZ ATION 08/07/2022 Larimer Aquilino [facility] DATE CREATED AUTHOR AUTHOR'S ORGANIZ ATION 03/22/2023 [facility] DATE CREATED AUTHOR AUTHOR'S ORGANIZ ATION 11/22/2023 [facility] DATE CREATED AUTHOR AUTHOR'S ORGANIZ ATION 03/01/2024 [facility] EPIC Care Teams (unrecognized sec [...] BE BASED ON THE PRIMARY CLINICAL RECORDS. [email or web address] provides no warranty or guarantee of the accuracy or completeness of information in this document.
== END 2024-03-04 13:41 | disposition home or self-care (01) ==
LOC: PM 13:41
PROVIDERS: PCP Nurse Practitioner; Visit Provider Nurse Practitioner
DX: M54.50 Low back pain, unspecified (principal); M47.816 Spondylosis without myelopathy or radiculopathy, lumbar region; M48.02 Spinal stenosis, cervical region; M54.12 Radiculopathy, cervical region; M62.838 Other muscle spasm
CPT/HCPCS: 72114; G0463

== ENCOUNTER 2024-03-04 14:19 | Outpatient (OUT) | payer MEDICARE, MEDICAID, SELFPAY ==
--- NOTE | 2024-03-04 14:24 | XR_ITS ---
The [address] [address] Patient Name: KALANI UGARTE MRN: [id number] date: 1970 Sex: M Assigned Patient Location: [facility] Current Patient Location: Accession/Order Number: [id number] Exam Date: 03/04/2024 14:35 Report Date: 03/05/2024 07:38 At the request of: MARIANA KENNEDY Procedure: XR lumbar spine 6V w bending EXAMINATION: XR lumbar spine 6V w bending HISTORY: Low Back Pain COMPARISON: No relevant comparison available. FINDINGS: BONES: Neutral projection demonstrates normal alignment with no acute fracture or spondylolisthesis. Mild degenerative spondylosis. Srqm-py-cnjnviaf facet osteoarthropathy DISC SPACES: Multilevel disc space narrowing most significant at S1-S2 PARASPINOUS: Negative. No paraspinous abnormality is seen. OTHER: No transient spondylolisthesis with flexion or extension XR/XR lumbar spine 6V w bending IMPRESSION: Mild degenerative changes No dynamic instability Electronically authenticated by: JARETT GARCÍA Date: 03/05/2024 07:38
== END 2024-03-04 14:20 | disposition home or self-care (01) ==
LOC: RAD 14:19
PROVIDERS: PCP Nurse Practitioner; Visit Provider Nurse Practitioner
DX: M54.50 Low back pain, unspecified (principal); M47.816 Spondylosis without myelopathy or radiculopathy, lumbar region
CPT/HCPCS: 72114

== ENCOUNTER 2024-03-31 09:03 | Day surgery (SDC) | payer MEDICARE, MEDICAID, SELFPAY ==
[2024-03-31 09:38] VITALS: BP 115/77; PULSE 62; TEMP 36.7; O2SAT 99
[2024-03-31 10:26] VITALS: BP 129/64; PULSE 54; O2SAT 98
[2024-03-31 10:27] VITALS: BP 124/75; PULSE 52; O2SAT 97
[2024-03-31] MEDS: BUPIVACAINE HCL 0.25% PF 25 MG/10 ML VIAL 6 ML INJ (10:30)
--- NOTE | 2024-03-31 10:37 | P.ON_ITS ---
Date of procedure: 03/31/24 Procedure: Bilateral Lumbar 1/2, 2/3 medial branch block Preop diagnosis includes pain secondary to spondylosis, Postop diagnosis same Under fluoroscopic guidance Solution injected: 2milliliters Marcaine 0.25% Anesthesia :none Immediate complications none Time out process compliant After informed consent obtained from the patient placed in the Prone proposition . area was prepped and draped in a sterile fashion using betadine .25 gauge spinal needle inserted over each of the above mentioned target areas . [place] were directed towards the target under fluoroscopic guidance . after encountering each of the targets , no indication of intravascular intraneuronal or intrathecal needle tip placement. Then 0 .5 to 1 Milliliter was injected at each level. Belle Rose removed postoperatively. patient transferred to recovery in stable condition to be discharged home after meeting criteria Anesthesia: Local Surgeon: Esteban Sanchez Condition: stable
== END 2024-03-31 10:33 | disposition home or self-care (01) ==
LOC: SURGOUT 09:04
PROVIDERS: PCP Nurse Practitioner; Visit Provider Anesthesiology Pain Medicine
DX: M47.816 Spondylosis without myelopathy or radiculopathy, lumbar region (principal)
CPT/HCPCS: 64493; 64494; J0665

== ENCOUNTER 2024-04-09 10:14 | Outpatient (OUT) | payer MEDICARE, MEDICAID, SELFPAY ==
--- OUTSIDE RECORDS SUMMARY | 2024-04-09 10:29 | XMS_ITS | CCD ---
[facility] Care Team Providers Care Waste Oil Pumper Name Role Phone FELISA, CARMEN CARMEN J Referring UnavailTarsha Mccrary Attending Unavailable AICHHOLZ, SEROLOGIST CARMEN Consulting Unavailable AICHHOLZ, SEROLOGIST CARMEN Primary Care Unavailable AICHHOLZ, SEROLOGIST CARMEN Admitting Unavailable AICHHOLZ, SEROLOGIST CARMEN Attending Unavailable GALO ., DR HANY Holder Admitting Unavailable GALO ., DR HANY Holder Attending Unavailable AICHHOLZ, SEROLOGIST CARMEN Primary Care Unavailable JEFFERSON ., STACY Consulting Unavailable JEFFERSON ., STACY Consulting Unavailable GALO ., DR HANY Holder Admitting Unavailable GALO ., DR HANY Holder Attending Unavailable AICHHOLZ, SEROLOGIST CARMEN Primary Care Unavailable JEFFERSON ., STACY Admitting Unavailable JEFFERSON ., STACY Attending Unavailable AICHHOLZ, SEROLOGIST CARMEN Primary Care Unavailable WEST, DR JARETT Long Consulting Unavailable JEFFERSON ., STACY Consulting Unavailable AICHHOLZ, SEROLOGIST CARMEN Primary Care Unavailable AICHHOLZ, SEROLOGIST CARMEN Admitting Unavailable AICHHOLZ, SEROLOGIST CARMEN Attending Unavailable AICHHOLZ, SEROLOGIST CARMEN Consulting Unavailable ALBERTO REDMAN Consulting Unavailable JEFFERSON ., STACY Consulting Unavailable GALO ., DR HANY Holder Admitting Unavailable GALO ., DR HANY Holder Attending Unavailable AICHHOLZ, SEROLOGIST CARMEN Primary Care Unavailable JEFFERSON ., STACY Consulting Unavailable GALO ., DR HANY Holder Admitting Unavailable GALO ., DR HANY Holder Attending Unavailable AICHHOLZ, SEROLOGIST CARMEN Primary Care Unavailable AICHHOLZ, SEROLOGIST CARMEN Consulting Unavailable AICHHOLZ, SEROLOGIST CARMEN Primary Care Unavailable AICHHOLZ, SEROLOGIST CARMEN Admitting Unavailable AICHHOLZ, SEROLOGIST CARMEN Attending Unavailable AICHHOLZ, SEROLOGIST CARMEN Admitting Unavailable AICHHOLZ, SEROLOGIST CARMEN Primary Care Unavailable AICHHOLZ, SEROLOGIST CARMEN Attending Unavailable AICHHOLZ, SEROLOGIST CARMEN Consulting Unavailable AICHHOLZ, SEROLOGIST CARMEN Consulting Unavailable AICHHOLZ, SEROLOGIST CARMEN Primary Care Unavailable AICHHOLZ, SEROLOGIST CARMEN Attending Unavailable AICHHOLZ, SEROLOGIST CARMEN Admitting Unavailable LOWE, DAVID Admitting Unavailable LOWE, DAVID Attending Unavailable AICHHOLZ, SEROLOGIST CARMEN Primary Care Unavailable DR NOEMÍ MORRISON Consulting Unavailable LOWE, DAVID Consulting Unavailable AICHHOLZ, SEROLOGIST CARMEN Primary Care Unavailable AICHHOLZ, SEROLOGIST CARMEN Attending Unavailable AICHHOLZ, SEROLOGIST CARMEN Consulting Unavailable AICHHOLZ, SEROLOGIST CARMEN Admitting Unavailable AICHHOLZ, SEROLOGIST CARMEN Consulting Unavailable AICHHOLZ, SEROLOGIST CARMEN Primary Care Unavailable AICHHOLZ, SEROLOGIST CARMEN Attending Unavailable AICHHOLZ, SEROLOGIST CARMEN Admitting Unavailable JARETT JARVIS Unavailable JESSE, APOORVA Admitting Unavailable JESSE, APOORVA Attending Unavailable AICHHOLZ, SEROLOGIST CARMEN Primary Care Unavailable JESSE, APOORVA Consulting Unavailable LAKSHMIPATHY ., NARENDRANATH Admitting Letty vailable LAKSHMIPATHY ., NARENDRANATH Attending Letty vailable AICHHOLZ, SEROLOGIST CARMEN Primary Care Unavailable COURTNEY STERLING Consulting Unavailable DR JARETT GARCÍA V Consulting Unavailable AICHHOLZ, SEROLOGIST CARMEN Primary Care Unavailable AICHHOLZ, SEROLOGIST CARMEN Admitting Unavailable AICHHOLZ, SEROLOGIST CARMEN Attending Unavailable AICHHOLZ, SEROLOGIST CARMEN Consulting Unavailable AICHHOLZ, SEROLOGIST CARMEN Consulting Unavailable AICHHOLZ, SEROLOGIST CARMEN Admitting Unavailable AICHHOLZ, SEROLOGIST CARMEN Attending Unavailable AICHHOLZ, SEROLOGIST CARMEN Primary Care Unavailable ILYA, NERI Admitting Unavailable ILYA, NERI Attending Unavailable AICHHOLZ, SEROLOGIST CARMEN Primary Care Unavailable ILYA, NERI Consulting Unavailable DANIELLE KWONG Consulting Unavailable AICHHOLZ, SEROLOGIST CARMEN Consulting Unavailable AICHHOLZ, SEROLOGIST CARMEN Primary Care Unavailable AICHHOLZ, SEROLOGIST CARMEN Admitting Unavailable AICHHOLZ, SEROLOGIST CARMEN Attending Unavailable DR NOEMÍ MORRISON Consulting Unavailable STACY MABRY Consulting Unavailable KIARRA ., DR HANY Holder Admitting Unavailable KIARRA ., DR HANY Holder Attending Unavailable AICHHOLZ, SEROLOGIST CARMEN Primary Care Unavailable GALO ., DR HANY Holder Consulting Unavailable KIARRA ., DR HANY Holder Admitting Unavailable GALO ., DR HANY Holder Attending Unavailable AICHHOLZ, SEROLOGIST CARMEN Primary Care Unavailable KARINA ., ELIAS Admitting Unavailable KARINA ., ELIAS Attending Unavailable AICHHOLZ, SEROLOGIST CARMEN Primary Care Unavailable KARINA ., ELIAS Consulting Unavailable CATHY DE PAZ Consulting Unavaila ble AICHHOLZ, SEROLOGIST CARMEN Primary Care Unavailable WEST, DR JARETT Long Consulting Unavailable AICHHOLZ, SEROLOGIST CARMEN Admitting Unavailable AICHHOLZ, SEROLOGIST CARMEN Attending Unavailable AICHHOLZ, SEROLOGIST CARMEN Consulting Unavailable HALKER ., COURTNEY Consulting Unavailable LAKSHMIPATHY ., NARENDRANATH Admitting Letty vailable LAKSHMIPATHY ., NARENDRANATH Attending Letty vailable AICHHOLZ, SEROLOGIST CARMEN Primary Care Unavailable Asaad, Imad Unavailable [...] CARMEN Attending Unavailable DAVID ANGUIANO Attending Unavailable AICHHOLZ, CARMEN Attending Unavailable Allergies Allergy Classification Reported Allergen(s) Allergy Type Date of Onset Reaction(s) Facility (4 sources) Latex Drug allergy (disorder) 6 Rash [facility] Repository (3 sources) venom-honey bee; Translations: [venom-honey bee] Allergy to substance 3 Anaphylaxis [facility] (1 source) Latex Drug allergy Unknown [facility] Other (1 source) Bee Sting Drug allergy Unknown [facility] Other (1 source) Latex Drug allergy (disorder) 3 [facility] Repository (1 source) bee venom protein (honey bee) Drug allergy (disorder) 3 [facility] Repository Medications Current Medications Medication Drug Class(es) Dates Sig (Normalized) Sig (Original) Albuterol (5 sources) beta2-Adrenergic Agonist Start: 03-11-2019 Albuterol Sulfate Active 2 PUFF INHALATION As Directed March 10, 2019 11:00pm Start: 03-11-2019 Albuterol Sulf ate Active 2 PUFF INHALATION As Directed March 11, 2019 12:00am Albuterol Active amylase 794493 unt / lipase 62528 unt / protease 51048 unt delayed release oral capsule (5 sources) Start: 04-18-2023 take 55068-26374 capsules by mouth three times daily Jcxozn-Kvafbgeh-Fakvhue (Creon) 24,000-76,000 -120,000 unit capsule,delayed release(DR/EC) Active 1 CAP PO Three times daily April 17, 2023 11:00pm biotin 10 mg oral capsule (2 sources) Start: 04-18-2023 take 99645 ug by mouth once daily at bedtime Biotin Active 96648 MCG PO Daily at bedtime April 17, [...] April 17, 2023 11:00pm polyethylene glycol 3350 651554 mg / potassium chloride 2970 mg / sodium bicarbonate 6740 mg / sodium chloride 5860 mg / sodium sulfate 42755 mg powder for oral solution (3 sources) [...] 07-30-2022 Episodic Other aftercare (1 source) Other fci (current) drug therapy; Translations: [OTH DEPARTMENTAL BUYER CURRENT DRUG THERAPY] Onset: 09-13-2022 Episodic Other [...] on 08-27-2023 XR cervical spine w flex/ext [facility] Main [place] [id number] XRay Report Signed Patient: Kalani Asencio MR#: [id number] 6 : 1970 Acct:[id number] Age/Sex: 53 / M ADM Date: 08/27/23 Loc: XD Room: Type: [facility] Attending Dr: Jemal Teague MD [...] C4-C6. Impression dictated by: Andi Hill Jr., DKaileyOKailey08/27/2023 4:23 PM Dictation Location: [place] [address] Transcribed By: [facility] 08/27/231622 Dictated By: Andi Hill Jr, DO 08/27/231621 Signed By: 08/27/231622 [facility] Rafael 04-18-2023 L - -------- Specimen: [id number] Received: 04/19/23 Status: ANUM Castillo Num: [id number] Spec Type: Surgical Subm Dr: Jhon Medina MD Tissues: A Colon Biopsy (RANDOM COLON BX) Procedures: HE/2, Gross/Micro L4 -------- Age/ Patient Sex Location Account Attending Physician -------- Kalani Asencio/[facility] [id number] Jhon Medina MD -------- SPEC NUM: [id number] RECD: 04/19/23 STATUS: ANUM CASTILLO NUM: [id number] LELE: 04/18/23- [facility] DR: Jhon Medina MD ENTERED: 04/19/[address] [facility] [address]: LUCY TYPE: Surgical DEPT: S [...] microscopic examination confirms the diagnosis. CPT Codes 04042 -------- -------- Specimen: [id number] Received: 04/19/23 Status: ANUM Castillo Num: [id number] Spec Type: Surgical Subm Dr: Jhon Medina MD Tissues: A Colon Biopsy (RANDOM COLON BX) Procedures: DANY/Camilo Gross/Yolanda L4 -------- Patient: Kalani Asencio [id number] (Continued) -------- Signed (signature on file) Warren De La O MD 04/22/23 [id number] Normal [facility] AMYLASEon 03-12-2023 Amylase [Catalytic activity/Vol] 42 U/L Normal 25-115 [facility] Comment on above: Performed By: #### T SH, LIPA, CMP, CHILANGO ####[facility] [address] [place], [place] [address]TkDr. Rakel Fraga CBC AUTO DIFFon 03-12-2023 BASO # 0.0 103/ul Normal 0.0-0.1 [facility] Comment on above: Performed By: #### U AMIC #### [facility] [address] [place] [address] [address] Rakel Fraga Basophils/100 WBC (Bld) 0.4 % Normal 0.2-2.0 [facility] Comment on above: Performed By: #### U AMIC #### [facility] [address] [place] [address] [address] Rakel Fraga EO # 0.8 103/ul Critically high 0.0-0.7 [facility] Comment on above: Performed By: #### U AMIC #### [facility] [address] [place] [address] [address] Rakel Fraga Eosinophils/100 WBC (Bld) 8.8 % Critically high 0.9-7.0 [facility] Comment on above: Performed By: #### U AMIC #### [facility] [address] [place] [address] [address] Rakel Fraga Erythrocyte distribution width (RBC) [Ratio] 13.0 % Normal 11.0-15.0 [facility] Comment on above: Performed By: #### U AMIC #### [facility] [address] [place] [address] [address] Rakel Fraga Hematocrit (Bld) [Volume fraction] 44.1 % Normal 42.0-54.0 [facility] Comment on above: Performed By: #### U AMIC #### [facility] [address] [place] [address] [address] Rakel Fraga Hemoglobin (Bld) [Mass/Vol] 14.2 g/dL Normal 14.0-18.0 [facility] Comment on above: Performed By: #### U AMIC #### [facility] [address] [place] [address] [address] Rakel Fraga IG # 0.02 10e3/ul Normal 0.00-0.03 [facility] Comment on above: Performed By: #### U AMIC #### [facility] [address] [place] [address] [address] Rakel Fraga IG % 0.2 % Normal 0.0-0.5 [facility] Comment on above: Performed By: #### U AMIC #### [facility] [address] [place] [address] [address] Rakel Fraga LYMPH # 1.9 103/ul Normal 1.2-3.8 [facility] Comment on above: Performed By: #### U AMIC #### [facility] [address] [place] [address] [address] Rakel Fraga Lymphocytes/100 WBC (Bld) 20.1 % Critically low 20.5-60.0 [facility] Comment on above: Performed By: #### U AMIC #### [facility] [address] [place] [address] [address] Rakel Fraga MANUAL DIFF REQ NO Normal [facility] Comment on above: Performed By: #### U AMIC #### [facility] [address] [place] [address] [address] Rakel Fraga MCH (RBC) [Entitic mass] 29.8 pg Normal 25.9-34.0 [facility] Comment on above: Performed By: #### U AMIC #### [facility] [address] [place] [address] [address] Rakel Fraga MCHC (RBC) [Mass/Vol] 32.2 g/dL Normal 29.9-35.2 [facility] Comment on above: Performed By: #### U AMIC #### [facility] [address] [place] [address] [address] Rakel Fraga MCV (RBC) [Entitic vol] 92.5 fL Normal 80.0-94.0 [facility] Comment on above: Performed By: #### U AMIC #### [facility] [address] [place] [address] [address] Rakel Fraga MONO # 0.5 103/ul Normal 0.3-0.8 [facility] Comment on above: Performed By: #### U AMIC #### [facility] [address] [place] [address] [address] Rakel Fraga Monocytes/100 WBC (Bld) 5.0 % Normal 1.7-12.0 [facility] Comment on above: Performed By: #### U AMIC #### [facility] [address] [place] [address] [address] Rakel Fraga NEUT # 6.0 103/ul Normal 1.4-6.5 [facility] Comment on above: Performed By: #### U AMIC #### [facility] [address] [place] [address] Dr. Rakel Fraga Neutrophils/100 WBC (Bld) 65.5 % Normal 43.0-75.0 [facility] Comment on above: Performed By: #### U AMIC #### [facility] [address] [place] [address] [address] Rakel Fraga Platelet mean volume (Bld) [Entitic vol] 9.4 fL Critically low 9.5-13.5 [facility] Comment on above: Performed By: #### U AMIC #### [facility] [address] [place] [address] [address] Rakel Fraga PLT 284 103/ul Normal 150-450 [facility] Comment on above: Performed By: #### U AMIC #### [facility] [address] [place] [address] [address] Rakel Fraga RBC 4.77 106/ul Normal 4.70-6.10 [facility] Comment on above: Performed By: #### U AMIC #### [facility] [address] [place] [address] [address] Rakel Fraga WBC 9.2 103/ul Normal 4.0-11.0 [facility] Comment on above: Performed By: #### U AMIC #### [facility] [address] [place] [address] DrKailey Fraga LIPASEon 03-12-2023 Lipase [Catalytic activity/Vol] 76.0 U/L Normal 73.0-393.0 [facility] Comment on above: Performed By: #### T SH, LIPA, CMP, CHILANGO ####[facility] [address] [place] [address]Dr. Rakel Fraga PROF 14(COMP METB)on 023 Albumin [Mass/Vol] 3.4 g/dL Normal 3.4-5.0 [facility] Comment on above: Performed By: #### T SH, LIPA, CMP, CHILANGO ####[facility] [address] [place] [address]DrKailey Fraga Albumin/Globulin [Mass ratio] 0.8 {ratio} Normal [facility] Comment on above: Performed By: #### T SH, LIPA, CMP, CHILANGO ####[facility] [address] [place] [address]Dr. Rakel Fraga ALP [Catalytic activity/Vol] 159 U/L Critically high 46-116 [facility] Comment on above: Performed By: #### T SH, LIPA, CMP, CHILANGO ####[facility] [address] [place] [address]Dr. Rakel Fraga ALT [Catalytic activity/Vol] 24 U/L Normal 16-63 [facility] Comment on above: Performed By: #### T SH, LIPA, CMP, CHILANGO ####[facility] [address] [place] [address]Dr. Rakel Fraga Anion gap [Moles/Vol] 12.2 mmol/L Normal [facility] Comment on above: Performed By: #### T SH, LIPA, CMP, CHILANGO ####[facility] [address] [place] [address]Dr. Rakel Fraga AST [Catalytic activity/Vol] 16 U/L Normal 15-37 [facility] Comment on above: Performed By: #### T SH, LIPA, CMP, CHILANGO ####[facility] [address] [place] [address]Dr. Rakel Fraga Bilirubin [Mass/Vol] 0.2 mg/dL Normal 0.2-1.0 [facility] Comment on above: Performed By: #### T SH, LIPA, CMP, CHILANGO ####[facility] [address] [place] [address]Dr. Rakel Fraga Calcium [Mass/Vol] 8.9 mg/dL Normal 8.5-10.1 [facility] Comment on above: Performed By: #### T SH, LIPA, CMP, CHILANGO ####[facility] [address] [place] [address]Dr. Rakel Fraga Chloride [Moles/Vol] 105 mmol/L Normal 98-107 [facility] Comment on above: Performed By: #### T SH, LIPA, CMP, CHILANGO ####[facility] [address] [place], [place] [address]Dr. Rakel Fraga CO2 [Moles/Vol] 28.7 mmol/L Normal 21.0-32.0 [facility] Comment on above: Performed By: #### T SH, LIPA, CMP, CHILANGO ####[facility] [address] [place], [place] [address]Dr. Rakel Fraga Creatinine [Mass/Vol] 1.27 mg/dL Normal 0.70-1.30 [facility] Comment on above: Performed By: #### T SH, LIPA, CMP, HCILANGO ####[facility] [address] [place], [place] [address]Dr. Rakel Fraga EGFR-AF ETHIOPIAN >60 Normal >=60 [facility] Comment on above: Performed By: #### T SH, LIPA, CMP, CHILANGO ####[facility] [address] [place], [place] [address]Dr. Rakel Fraga EGFR-NON AF ETHIOPIAN 59 mL/min/1.73m2 Critically low >=60 [facility] Comment on above: Performed By: #### T SH, LIPA, CMP, CHILANGO ####[facility] [address] [place] [address]Dr. Rakel Fraga Globulin (S) [Mass/Vol] 4.4 g/dL Normal [facility] Comment on above: Performed By: #### T SH, LIPA, CMP, CHILANGO ####[facility] [address] [place] [address]Dr. Rakel Fraga Glucose [Mass/Vol] 95 mg/dL Normal 74-106 [facility] Comment on above: Performed By: #### T SH, LIPA, CMP, CHILANGO ####[facility] [address] [place] [address]Dr. Rakel Fraga Potassium [Moles/Vol] 3.9 mmol/L Normal 3.5-5.1 [facility] Comment on above: Performed By: #### T SH, LIPA, CMP, CHILANGO ####[facility] [address] [place], [place] [address]Dr. Rakel Fraga Protein [Mass/Vol] 7.8 g/dL Normal 6.4-8.2 [facility] Comment on above: Performed By: #### T SH, LIPA, CMP, CHILANGO ####[facility] [address] [place], [place] [address]Dr. Rakel Fraga Sodium [Moles/Vol] 142 mmol/L Normal 136-145 [facility] Comment on above: Performed By: #### T SH, LIPA, CMP, CHILANGO ####[facility] [address] [place], [place] [address]Dr. Rakel Fraga Urea nitrogen [Mass/Vol] 14.0 mg/dL Normal 7.0-18.0 [facility] Comment on above: Performed By: #### T SH, LIPA, CMP, CHILANGO ####[facility] [address] [place], [place] [address]Dr. Rakel Fraga Urea nitrogen/Creatinine [Mass ratio] 11.0 mg/mg Normal [facility] Comment on above: Performed By: #### T SH, LIPA, CMP, CHILANGO ####[facility] [address] [place] [address]Dr. Rakel Fraga SED RATE [facility] 2022 SED RATE 17 mm/hr Normal <=20 [facility] Comment on above: Performed By: #### U AMIC #### [facility] [address] [place] [address] Dr. Rakel Fraga TSHon 03-12-2023 TSH 0.793 uIU/mL Normal 0.358-3.740 [facility] Comment on above: Performed By: #### T SH, LIPA, CMP, CHILANGO ####[facility] [address] [place] [address]Dr. Rakel Fraga UA RANDOM W/MICROSCOPICon BACTERIA NONE SEEN Normal NONE SEEN [facility] Comment on above: Performed By: #### B MP #### [facility] [address] [place] [address] Dr. Rakel Fraga Bilirubin Ql (U) Negative Normal NEGATIVE [facility] Comment on above: Performed By: #### B MP #### [facility] [address] [place] [address] Dr. Rakel Fraga CAST NONE SEEN Normal NONE SEEN [facility] Comment on above: Performed By: #### B MP #### [facility] [address] [place] [address] Dr. Rakel Fraga Clarity (U) CLEAR Normal CLEAR [facility] Comment on above: Performed By: #### B MP #### [facility] [address] [place] [address] Dr. Rakel Fraga Color (U) LT. YELLOW Normal YELLOW [facility] Comment on above: Performed By: #### B MP #### [facility] [address] [place] [address] Dr. Rakel Fraga Crystals LM Nom (Urine sed) NONE SEEN Normal NONE SEEN [facility] Comment on above: Performed By: #### B MP #### [facility] [address] [place] [address] Dr. Rakel Fraga Epithelial cells LM Ql (Urine sed) NONE SEEN Normal NONE SEEN /RARE [facility] Comment on above: Performed By: #### B MP #### [facility] [address] [place] [address] Dr. Rakel Fraga Glucose Ql (U) Negative Normal NEGATIVE [facility] Comment on above: Performed By: #### B MP #### [facility] [address] [place] [address] Dr. Rakel Fraga Hemoglobin Ql (U) Negative Normal NEGATIVE [facility] Comment on above: Performed By: #### B MP #### [facility] [address] [place] [address] [address] Rakel Fraga Ketones Ql (U) Negative Normal NEGATIVE [facility] Comment on above: Performed By: #### B MP #### [facility] [address] [place] [address] [address] Rakel Fraga LEUKOCYTES Negative Normal NEGATIVE [facility] Comment on above: Performed By: #### B MP #### [facility] [address] [place] [address] Dr. Rakel Fraga MUCOUS NONE SEEN Normal NONE SEEN [facility] Comment on above: Performed By: #### B MP #### [facility] [address] [place] [address] Dr. Rakel Fraga Nitrite Ql (U) Negative Normal NEGATIVE [facility] Comment on above: Performed By: #### B MP #### [facility] [address] [place] [address] Dr. Rakel Fraga pH (U) 5.5 [pH] Normal 5-9 [facility] Comment on above: Performed By: #### B MP #### [facility] [address] [place] [address] Dr. Rakel Fraga RBC 0-2 Normal 0-2 [facility] Comment on above: Performed By: #### B MP #### [facility] [address] [place] [address] Dr. Rakel Fraga SPEC GRAVITY >=1.030 Abnormal 1.005-<=1.025 [facility] Comment on above: Performed By: #### B MP #### [facility] [address] [place] [address] Dr. Rakel Fraga UA PROTEIN Negative Normal NEGATIVE/ TRACE [facility] Comment on above: Performed By: #### B MP #### [facility] [address] [place] [address] Dr. Rakel Fraga Urobilinogen Qn (U) 0.2 {Arnoldo'U}/dL Normal 0.2 - 1. 0 [facility] Comment on above: Performed By: #### B MP #### [facility] [address] [place] [address] Dr. Rakel Fraga WBC NONE SEEN Normal NONE SEEN [facility] Comment on above: Performed By: #### B MP #### [facility] [address] [place] [address] Dr. Rakel Fraga XR KUB 1 VIEWon 03-12-2023 XR KUB 1 VIEW EXAMINATION: XR KUB 1 VIEW HISTORY: Abdominal pain COMPARISON: 02/23/2020 FINDINGS: BOWEL GAS PATTERN: No abnormal dilation or deviation. CALCIFICATIONS: None significant. OTHER: Negative. No abnormal gaseous collections. IMPRESSION: Normal bowel gas pattern Electronically authenticated by: JARETT GARCÍA Date: 2023-03-12 14:27 Normal [facility] Covid-19 PCR (CVDTB)on SARS-CoV-2 (COVID-19) RNA SHADIA+probe Ql (Unsp spec) Not detected Normal NOT DETECTED [facility] Comment on above: Result Comment: This test is not yet approved or cleared by the [place] FDA. When there are no FDA-approved or cleared tests available, and other criteria are met, FDA can make tests available under an emergency access mechanism called an Emergency Use Authorization (EUA). The EUA for this test is supported by the [employer] of Health and Human Service's (HHS's) declaration [...] SARS-CoV-2. Performed By: #### B MP #### [facility] [address] [place] [address] Dr. Rakel Fraga INFLUENZA A AND B AGon 01-14 INFLUANEGH SEE BELOW Normal [facility] Comment on above: Result Comment: Nega tive for Flu A protein angiten. Infection due to Flu A cannot be ruled out. Flu A angiten in the sample may be below the detection limit of the test. Performed By: #### I NFLUAB #### [facility] [address] [place] [address] Dr. Rakel Fraga INFLUBNEGH SEE BELOW Normal [facility] Comment on above: Result Comment: Nega tive for Flu B protein antigen. Infection due to Flu B cannot be ruled out. Flu B antigen in the sample may be below the detection limit of the test. Performed By: #### I NFLUAB #### [facility] [address] [place] [address] Dr. Rakel Fraga INFLUENZA A AG Negative Normal NEGATIVE SEE COMMENT [facility] Comment on above: Performed By: #### I NFLUAB #### [facility] [address] [place] [address] Dr. Rakel Fraga INFLUENZA B AG Negative Normal NEGATIVE SEE COMMENT [facility] Comment on above: Performed By: #### I NFLUAB #### [facility] [address] [place] [address] Dr. Rakel Fraga SYMPTOMATIC COVID-19 ANTIGEN on 01-14-2023 EUA Statement SEE BELOW Normal [facility] Comment on above: Result Comment: This [...] sooner. Performed By: #### U AMIC #### [facility] [address] [place] [address] Dr. Rakel Fraga SARS-CoV-2 (COVID-19) RNA SHADIA+probe Ql (Unsp spec) Negative Normal NEGATIVE [facility] Comment on above: Performed By: #### U AMIC #### [facility] [address] [place] [address] Dr. Rakel Fraga PANCREATIC ELASTASE FECALon 01-09-2023 Pancreatic Elastase, Fecal 90 ug Elast./g Critically low >200 [facility] Comment on above: Result Comment: Re sults verified by repeat testing Severe Pancreatic Insufficiency: <100 Moderate Pancreatic Insufficiency: 100 - 200 Normal: >200 Performed By: #### B MP #### [facility] [address] [place] [address] Dr. Rakel Fraga CBC AUTO DIFFon 01-07-2023 BASO # 0.0 103/ul Normal 0.0-0.1 [facility] Comment on above: Performed By: #### C BC #### [facility] [address] [place] [address] Dr. Rakel Fraga Basophils/100 WBC (Bld) 0.3 % Normal 0.2-2.0 [facility] Comment on above: Performed By: #### C BC #### [facility] [address] [place] [address] Dr. Rakel Fraga EO # 0.7 103/ul Normal 0.0-0.7 [facility] Comment on above: Performed By: #### C BC #### [facility] [address] [place] [address] Dr. Rakel Fraga Eosinophils/100 WBC (Bld) 11.6 % Critically high 0.9-7.0 [facility] Comment on above: Performed By: #### C BC #### [facility] [address] [place] [address] Dr. Raekl Fraga Erythrocyte distribution width (RBC) [Ratio] 13.5 % Normal 11.0-15.0 [facility] Comment on above: Performed By: #### C BC #### [facility] [address] [place] [address] Dr. Rakel Fraga Hematocrit (Bld) [Volume fraction] 44.3 % Normal 42.0-54.0 [facility] Comment on above: Performed By: #### C BC #### [facility] [address] [place] [address] Dr. Rakel Fraga Hemoglobin (Bld) [Mass/Vol] 14.4 g/dL Normal 14.0-18.0 [facility] Comment on above: Performed By: #### C BC #### [facility] [address] [place] [address] Dr. Rakel Fraga IG # 0.01 10e3/ul Normal 0.00-0.03 [facility] Comment on above: Performed By: #### C BC #### [facility] [address] [place] [address] Dr. Rakel Fraga IG % 0.2 % Normal 0.0-0.5 [facility] Comment on above: Performed By: #### C BC #### [facility] [address] [place] [address] Dr. Rakel Fraga LYMPH # 2.0 103/ul Normal 1.2-3.8 [facility] Comment on above: Performed By: #### C BC #### [facility] [address] [place] [address] Dr. Rakel Fraga Lymphocytes/100 WBC (Bld) 32.5 % Normal 20.5-60.0 [facility] Comment on above: Performed By: #### C BC #### [facility] [address] [place] [address] Dr. Rakel Fraga MANUAL DIFF REQ NO Normal [facility] Comment on above: Performed By: #### C BC #### [facility] [address] [place] [address] Dr. Rakel Fraga MCH (RBC) [Entitic mass] 29.8 pg Normal 25.9-34.0 [facility] Comment on above: Performed By: #### C BC #### [facility] [address] [address] [address] Rakel Fraga MCHC (RBC) [Mass/Vol] 32.5 g/dL Normal 29.9-35.2 [facility] Comment on above: Performed By: #### C BC #### [facility] [address] [address] [address] Rakel Fraga MCV (RBC) [Entitic vol] 91.5 fL Normal 80.0-94.0 [facility] Comment on above: Performed By: #### C BC #### [facility] [address] [address] [address] Rakel Fraga MONO # 0.4 103/ul Normal 0.3-0.8 [facility] Comment on above: Performed By: #### C BC #### [facility] [address] [place] [address] Dr. Rakel Fraga Monocytes/100 WBC (Bld) 7.1 % Normal 1.7-12.0 [facility] Comment on above: Performed By: #### C BC #### [facility] [address] [place] [address] Dr. Rakel Fraga NEUT # 2.9 103/ul Normal 1.4-6.5 [facility] Comment on above: Performed By: #### C BC #### [facility] [address] [place] [address] Dr. Rakel Fraga Neutrophils/100 WBC (Bld) 48.3 % Normal 43.0-75.0 [facility] Comment on above: Performed By: #### C BC #### [facility] [address] [place] [address] Dr. Rakel Fraga Platelet mean volume (Bld) [Entitic vol] 9.6 fL Normal 9.5-13.5 [facility] Comment on above: Performed By: #### C BC #### [facility] [address] [place] [address] Dr. Rakel Fraga PLT 222 103/ul Normal 150-450 [facility] Comment on above: Performed By: #### C BC #### [facility] [address] [address] [address] Rakel Fraga RBC 4.84 106/ul Normal 4.70-6.10 [facility] Comment on above: Performed By: #### C BC #### [facility] [address] [address] [address] Rakel Fraga WBC 6.0 103/ul Normal 4.0-11.0 [facility] Comment on above: Performed By: #### C BC #### [facility] [address] [address] [address] Rakel Fraga PROF 14(COMP METB)on 023 Albumin [Mass/Vol] 3.6 g/dL Normal 3.4-5.0 [facility] Comment on above: Performed By: #### C MP ####[facility] [address] [address]Dr. Rakel Fraga Albumin/Globulin [Mass ratio] 1.0 {ratio} Normal [facility] Comment on above: Performed By: #### C MP ####[facility] [address] [address]Dr. Rakel Fraga ALP [Catalytic activity/Vol] 140 U/L Critically high 46-116 [facility] Comment on above: Performed By: #### C MP ####[facility] [address] [address]Dr. Rakel Fraga ALT [Catalytic activity/Vol] 23 U/L Normal 16-63 [facility] Comment on above: Performed By: #### C MP ####[facility] [address] [address]Dr. Rakel Fraga Anion gap [Moles/Vol] 12.4 mmol/L Normal [facility] Comment on above: Performed By: #### C MP ####[facility] [address] [address]Dr. Rakel Fraga AST [Catalytic activity/Vol] 19 U/L Normal 15-37 [facility] Comment on above: Performed By: #### C MP ####[facility] [address] [id number]. Rakel Fraga Bilirubin [Mass/Vol] 0.2 mg/dL Normal 0.2-1.0 [facility] Comment on above: Performed By: #### C MP ####[facility] [address] [id number]. Rakel Fraga Calcium [Mass/Vol] 8.9 mg/dL Normal 8.5-10.1 [facility] Comment on above: Performed By: #### C MP ####[facility] [address] [id number]. Rkael Fraga Chloride [Moles/Vol] 111 mmol/L Critically high 98-107 [facility] Comment on above: Performed By: #### C MP ####[facility] [address] [address]Dr. Rakel Fraga CO2 [Moles/Vol] 27.8 mmol/L Normal 21.0-32.0 [facility] Comment on above: Performed By: #### C MP ####[facility] [address] [place], [place] [address]Dr. Rakel Fraga Creatinine [Mass/Vol] 1.26 mg/dL Normal 0.70-1.30 [facility] Comment on above: Performed By: #### C MP ####[facility] [address] [id number]. Rakel Fraga EGFR-AF ETHIOPIAN >60 Normal >=60 [facility] Comment on above: Performed By: #### C MP ####[facility] [address] [id number]. Rakel Flakito EGFR-NON AF ETHIOPIAN 60 mL/min/1.73m2 Normal >=60 [facility] Comment on above: Performed By: #### C MP ####[facility] [address] [place], [place] [address]Dr. Rakel Fraga Globulin (S) [Mass/Vol] 3.6 g/dL Normal [facility] Comment on above: Performed By: #### C MP ####[facility] [address] [place], [place] [address]Dr. Rakel Fraga Glucose [Mass/Vol] 118 mg/dL Critically high 74-106 [facility] Comment on above: Performed By: #### C MP ####[facility] [address] [address]Dr. Rakel Fraga Potassium [Moles/Vol] 4.2 mmol/L Normal 3.5-5.1 [facility] Comment on above: Performed By: #### C MP ####[facility] [address] [address]Dr. Rakel Fraga Protein [Mass/Vol] 7.2 g/dL Normal 6.4-8.2 [facility] Comment on above: Performed By: #### C MP ####[facility] [address] [address]Dr. Rakel Fraga Sodium [Moles/Vol] 147 mmol/L Critically high 136-145 [facility] Comment on above: Performed By: #### C MP ####[facility] [address] [address]Dr. Rakel Fraga Urea nitrogen [Mass/Vol] 17.0 mg/dL Normal 7.0-18.0 [facility] Comment on above: Performed By: #### C MP ####[facility] [address] [address]Dr. Rakel Fraga Urea nitrogen/Creatinine [Mass ratio] 13.5 mg/mg Normal [facility] Comment on above: Performed By: #### C MP ####[facility] [address] [address]Dr. Rakel Fraga SED RATE WESTERGRENon 2022 SED RATE 13 mm/hr Normal <=20 [facility] Comment on above: Performed By: #### S EDR ####[facility] [address] [place], [place] [address]Dr. Rakel Fraga STOOL CULTUREon 01-06-2023 Campylobacter Culture Final report Normal [facility] Comment on above: Performed By: #### C XSTOOL #### [facility] [address] [address] [address] Rakel Fraga E coli Shiga Toxin EIA Negative Normal Negative [facility] Comment on above: Performed By: #### C XSTOOL #### [facility] [address] [place] [address] Dr. Rakel Fraga Result 1 Comment Normal [facility] Comment on above: Result Comment: No S almonella or Shigella recovered. Performed By: #### C XSTOOL #### [facility] [address] [place] [address] Dr. Rakel Fraga Result Comment: No C ampylobacter species isolated. Salmonella/Shigella Screen Final report Normal [facility] Comment on above: Performed By: #### C XSTOOL #### [facility] [address] [place] [address] Dr. Rakel Fraga OVA AND PARASITE EXAMINATION on 01-04-2023 Ova + Parasite Exam Final report Normal [facility] Comment on above: Result Comment: Thes e results were obtained using wet preparation(s) and trichrome stained smear. This test does not include testing for Cryptosporidium parvum, Cyclospora, or Microsporidia. Performed By: #### B MP #### [facility] [address] [place] [address] Dr. Rakel Fraga Result 1 Comment Normal [facility] Comment on above: Result Comment: No o va, cysts, or parasites seen. . One negative specimen does not rule out the possibility of a parasitic infection. Performed By: #### B MP #### [facility] [address] [place] [address] Dr. Rakel Fraga C. DIFF PCRon 01-02-2023 C. DIFFICILE PCR Negative Normal NEGATIVE [facility] Comment on above: Performed By: #### U AMIC #### [facility] [address] [place] [address] Dr. Rakel Fraga OCC BLD IMMUNO SCREENon 12-13 OCCULT BLOOD Negative Normal NEGATIVE [facility] Comment on above: Performed By: #### U AMIC #### [facility] [address] [place] [address] Dr. Rakel Fraga LEVETIRACETAM, SERUM OR PLAS MAon 11-09-2022 Levetiracetam, S 20.0 ug/mL Normal 10.0-40.0 [facility] Comment on above: Performed By: #### U AMIC #### [facility] [address] [place] [address] Dr. Rakel Fraga ZONISAMIDEon 11-09-2022 Zonisamide 23.3 ug/mL Normal 10.0-40.0 [facility] Comment on above: Result Comment: Dete ction Limit = 2.0 Performed By: #### B MP #### [facility] [address] [place] [address] Dr. Rakel Fraga CBC AUTO DIFFon 11-07-2022 BASO # 0.1 103/ul Normal 0.0-0.1 [facility] Comment on above: Performed By: #### C BC #### [facility] [address] [place] [address] Dr. Rakel Fraga Basophils/100 WBC (Bld) 0.5 % Normal 0.2-2.0 [facility] Comment on above: Performed By: #### C BC #### [facility] [address] [place] [address] Dr. Rakel Fraga EO # 1.9 103/ul Critically high 0.0-0.7 [facility] Comment on above: Performed By: #### C BC #### [facility] [address] [place] [address] Dr. Rakel Fraga Eosinophils/100 WBC (Bld) 17.1 % Critically high 0.9-7.0 [facility] Comment on above: Performed By: #### C BC #### [facility] [address] [place] [address] Dr. Rakel Fraga Erythrocyte distribution width (RBC) [Ratio] 12.9 % Normal 11.0-15.0 [facility] Comment on above: Performed By: #### C BC #### [facility] [address] [place] [address] Dr. Rakel Fraga Hematocrit (Bld) [Volume fraction] 44.6 % Normal 42.0-54.0 [facility] Comment on above: Performed By: #### C BC #### [facility] [address] [address] [address] Rakel Fraga Hemoglobin (Bld) [Mass/Vol] 13.8 g/dL Critically low 14.0-18.0 [facility] Comment on above: Performed By: #### C BC #### [facility] [address] [address] [address] Rakel Fraga IG # 0.03 10e3/ul Normal 0.00-0.03 [facility] Comment on above: Performed By: #### C BC #### [facility] [address] [place] [address] Dr. Rakel Fraga IG % 0.3 % Normal 0.0-0.5 [facility] Comment on above: Performed By: #### C BC #### [facility] [address] [place] [address] Dr. Rakel Fraga LYMPH # 2.1 103/ul Normal 1.2-3.8 [facility] Comment on above: Performed By: #### C BC #### [facility] [address] [place] [address] Dr. Rakel Fraga Lymphocytes/100 WBC (Bld) 18.7 % Critically low 20.5-60.0 [facility] Comment on above: Performed By: #### C BC #### [facility] [address] [place] [address] Dr. Rakel Fraga MANUAL DIFF REQ NO Normal [facility] Comment on above: Performed By: #### C BC #### [facility] [address] [place] [address] Dr. Rakel Fraga MCH (RBC) [Entitic mass] 29.3 pg Normal 25.9-34.0 [facility] Comment on above: Performed By: #### C BC #### [facility] [address] [place] [address] Dr. Rakel Fraga MCHC (RBC) [Mass/Vol] 30.9 g/dL Normal 29.9-35.2 [facility] Comment on above: Performed By: #### C BC #### [facility] [address] [address] [address] Rakel Fraga MCV (RBC) [Entitic vol] 94.7 fL Critically high 80.0-94.0 [facility] Comment on above: Performed By: #### C BC #### [facility] [address] [address] [address] Rakel Fraga MONO # 0.6 103/ul Normal 0.3-0.8 [facility] Comment on above: Performed By: #### C BC #### [facility] [address] [address] [address] Rakel Fraga Monocytes/100 WBC (Bld) 5.4 % Normal 1.7-12.0 [facility] Comment on above: Performed By: #### C BC #### [facility] [address] [place] [address] Dr. Rakel Fraga NEUT # 6.4 103/ul Normal 1.4-6.5 [facility] Comment on above: Performed By: #### C BC #### [facility] [address] [place] [address] Dr. Rakel Fraga Neutrophils/100 WBC (Bld) 58.0 % Normal 43.0-75.0 [facility] Comment on above: Performed By: #### C BC #### [facility] [address] [place] [address] Dr. Rakel Fraga Platelet mean volume (Bld) [Entitic vol] 9.2 fL Critically low 9.5-13.5 [facility] Comment on above: Performed By: #### C BC #### [facility] [address] [place] [address] Dr. Rakel Fraga PLT 261 103/ul Normal 150-450 [facility] Comment on above: Performed By: #### C BC #### [facility] [address] [address] [address] Rakel Fraga RBC 4.71 106/ul Normal 4.70-6.10 [facility] Comment on above: Performed By: #### C BC #### [facility] [address] [address] [address] Rakel Fraga WBC 11.0 103/ul Normal 4.0-11.0 [facility] Comment on above: Performed By: #### C BC #### [facility] [address] [place] [address] Dr. Rakel Fraga PROF 14(COMP METB)on 023 Albumin [Mass/Vol] 3.6 g/dL Normal 3.4-5.0 [facility] Comment on above: Performed By: #### U AMIC #### [facility] [address] [address] [address] Rakel Fraga Albumin/Globulin [Mass ratio] 0.9 {ratio} Normal [facility] Comment on above: Performed By: #### U AMIC #### [facility] [address] [place] [address] Dr. Rakel Fraga ALP [Catalytic activity/Vol] 159 U/L Critically high 46-116 [facility] Comment on above: Performed By: #### U AMIC #### [facility] [address] [place] [address] Dr. Rakel Fraga ALT [Catalytic activity/Vol] 20 U/L Normal 16-63 [facility] Comment on above: Performed By: #### U AMIC #### [facility] [address] [place] [address] Dr. Rakel Fraga Anion gap [Moles/Vol] 11.4 mmol/L Normal [facility] Comment on above: Performed By: #### U AMIC #### [facility] [address] [place] [address] Dr. Rakel Fraga AST [Catalytic activity/Vol] 15 U/L Normal 15-37 [facility] Comment on above: Performed By: #### U AMIC #### [facility] [address] [place] [address] Dr. Rakel Fraga Bilirubin [Mass/Vol] 0.3 mg/dL Normal 0.2-1.0 [facility] Comment on above: Performed By: #### U AMIC #### [facility] [address] [address] [address] Rakel Fraga Calcium [Mass/Vol] 9.2 mg/dL Normal 8.5-10.1 [facility] Comment on above: Performed By: #### U AMIC #### [facility] [address] [address] [address] Rakel Fraga Chloride [Moles/Vol] 101 mmol/L Normal 98-107 [facility] Comment on above: Performed By: #### U AMIC #### [facility] [address] [place] [address] Dr. Rakel Fraga CO2 [Moles/Vol] 28.5 mmol/L Normal 21.0-32.0 [facility] Comment on above: Performed By: #### U AMIC #### [facility] [address] [place] [address] Dr. Rakel Fraga Creatinine [Mass/Vol] 1.07 mg/dL Normal 0.70-1.30 [facility] Comment on above: Performed By: #### U AMIC #### [facility] [address] [address] [address] Rakel Fraga EGFR-AF ETHIOPIAN >60 Normal >=60 [facility] Comment on above: Performed By: #### U AMIC #### [facility] [address] [place] [address] Dr. Rakel Fraga EGFR-NON AF ETHIOPIAN >60 Normal >=60 [facility] Comment on above: Performed By: #### U AMIC #### [facility] [address] [address] [address] Rakel Fraga Globulin (S) [Mass/Vol] 4.0 g/dL Normal [facility] Comment on above: Performed By: #### U AMIC #### [facility] [address] [place] [address] Dr. Rakel Fraga Glucose [Mass/Vol] 109 mg/dL Critically high 74-106 [facility] Comment on above: Performed By: #### U AMIC #### [facility] [address] [address] [address] Rakel Fraga Potassium [Moles/Vol] 3.9 mmol/L Normal 3.5-5.1 [facility] Comment on above: Performed By: #### U AMIC #### [facility] [address] [address] [address] Rakel Fraga Protein [Mass/Vol] 7.6 g/dL Normal 6.4-8.2 [facility] Comment on above: Performed By: #### U AMIC #### [facility] [address] [address] [address] Rakel Fraga Sodium [Moles/Vol] 137 mmol/L Normal 136-145 [facility] Comment on above: Performed By: #### U AMIC #### [facility] [address] [address] [address] Rakel Fraga Urea nitrogen [Mass/Vol] 11.0 mg/dL Normal 7.0-18.0 [facility] Comment on above: Performed By: #### U AMIC #### [facility] [address] [address] [address] Rakel Fraga Urea nitrogen/Creatinine [Mass ratio] 10.3 mg/mg Normal [facility] Comment on above: Performed By: #### U AMIC #### [facility] [address] [place] [address] Dr. Rakel Fraga US SINGLE QUAD RT [...] by: JARETT JARVIS Date: 2022-10-09 10:17 Normal [facility] MRI LSPINE WO CONon 09-17-20 MRI [...] by: JARETT GARCÍA Date: 2022-09-17 12:01 Normal [facility] CT ABD/PELVIS WO CONon 09-10 CT [...] DANIELLE KWONG Date: 2022-09-09 23:49 Normal [facility] CBC AUTO DIFFon 09-09-2022 BASO # 0.0 103/ul Normal 0.0-0.1 [facility] Comment on above: Performed By: #### U AMIC #### [facility] [address] [place] [address] Dr. Rakle Fraga Basophils/100 WBC (Bld) 0.4 % Normal 0.2-2.0 [facility] Comment on above: Performed By: #### U AMIC #### [facility] [address] [place] [address] Dr. Rakel Fraga EO # 0.3 103/ul Normal 0.0-0.7 [facility] [facility] Comment on above: Performed By: #### U AMIC #### [facility] [address] [place] [address] Dr. Rakel Fraga Eosinophils/100 WBC (Bld) 3.4 % Normal 0.9-7.0 [facility] Comment on above: Performed By: #### U AMIC #### [facility] [address] [place] [address] Dr. Rakel Fraga Erythrocyte distribution width (RBC) [Ratio] 13.0 % Normal 11.0-15.0 [facility] Comment on above: Performed By: #### U AMIC #### [facility] [address] [place] [address] Dr. Rakel Fraga Hematocrit (Bld) [Volume fraction] 43.8 % Normal 42.0-54.0 [facility] Comment on above: Performed By: #### U AMIC #### [facility] [address] [place] [address] Dr. Rakel Fraga Hemoglobin (Bld) [Mass/Vol] 14.6 g/dL Normal 14.0-18.0 [facility] Comment on above: Performed By: #### U AMIC #### [facility] [address] [place] [address] Dr. Rakel Fraga IG # 0.02 10e3/ul Normal 0.00-0.03 [facility] Comment on above: Performed By: #### U AMIC #### [facility] [address] [place] [address] Dr. Rakel Fraga IG % 0.2 % Normal 0.0-0.5 [facility] Comment on above: Performed By: #### U AMIC #### [facility] [address] [place] [address] Dr. Rakel Fraga LYMPH # 2.3 103/ul Normal 1.2-3.8 [facility] Comment on above: Performed By: #### U AMIC #### [facility] [address] [place] [address] Dr. Rakel Fraga Lymphocytes/100 WBC (Bld) 25.3 % Normal 20.5-60.0 [facility] Comment on above: Performed By: #### U AMIC #### [facility] [address] [place] [address] Dr. Rakel Fraga MANUAL DIFF REQ NO Normal [facility] Comment on above: Performed By: #### U AMIC #### [facility] [address] [place] [address] Dr. Rakel Fraga MCH (RBC) [Entitic mass] 30.3 pg Normal 25.9-34.0 [facility] Comment on above: Performed By: #### U AMIC #### [facility] [address] [place] [address] Dr. Rakel Fraga MCHC (RBC) [Mass/Vol] 33.3 g/dL Normal 29.9-35.2 [facility] Comment on above: Performed By: #### U AMIC #### [facility] [address] [address] [address] Rakel Fraga MCV (RBC) [Entitic vol] 90.9 fL Normal 80.0-94.0 [facility] Comment on above: Performed By: #### U AMIC #### [facility] [address] [address] [address] Rakel Fraga MONO # 0.8 103/ul Normal 0.3-0.8 [facility] Comment on above: Performed By: #### U AMIC #### [facility] [address] [place] [address] Dr. Rakel Fraga Monocytes/100 WBC (Bld) 8.5 % Normal 1.7-12.0 [facility] Comment on above: Performed By: #### U AMIC #### [facility] [address] [place] [address] Dr. Rakel Fraga NEUT # 5.5 103/ul Normal 1.4-6.5 [facility] Comment on above: Performed By: #### U AMIC #### [facility] [address] [place] [address] Dr. Rakel Fraga Neutrophils/100 WBC (Bld) 62.2 % Normal 43.0-75.0 [facility] Comment on above: Performed By: #### U AMIC #### [facility] [address] [place] [address] Dr. Rakel Fraga Platelet mean volume (Bld) [Entitic vol] 9.8 fL Normal 9.5-13.5 [facility] Comment on above: Performed By: #### U AMIC #### [facility] [address] [place] [address] Dr. Rakel Fraga PLT 252 103/ul Normal 150-450 [facility] Comment on above: Performed By: #### U AMIC #### [facility] [address] [place] [address] Dr. Rakel Fraga RBC 4.82 106/ul Normal 4.70-6.10 [facility] Comment on above: Performed By: #### U AMIC #### [facility] [address] [place] [address] Dr. Rakel Fraga WBC 8.9 103/ul Normal 4.0-11.0 [facility] Comment on above: Performed By: #### U AMIC #### [facility] [address] [place] [address] Dr. Rakel Fraga PROF CHEM 8 (BAS METB)on Anion gap [Moles/Vol] 9.4 mmol/L Normal [facility] Comment on above: Performed By: #### B MP #### [facility] [address] [place] [address] Dr. Rakel Fraga Calcium [Mass/Vol] 8.5 mg/dL Normal 8.5-10.1 [facility] Comment on above: Performed By: #### B MP #### [facility] [address] [place] [address] Dr. Rakel Fraga Chloride [Moles/Vol] 104 mmol/L Normal 98-107 [facility] Comment on above: Performed By: #### B MP #### [facility] [address] [place] [address] Dr. Rakel Fraga CO2 [Moles/Vol] 28.0 mmol/L Normal 21.0-32.0 [facility] Comment on above: Performed By: #### B MP #### [facility] [address] [place] [address] Dr. Rakel Fraga Creatinine [Mass/Vol] 1.18 mg/dL Normal 0.70-1.30 [facility] Comment on above: Performed By: #### B MP #### [facility] [address] [place] [address] Dr. Rakel Fraga EGFR-AF ETHIOPIAN >60 Normal >=60 [facility] Comment on above: Performed By: #### B MP #### [facility] [address] [place] [address] Dr. Rakel Fraga EGFR-NON AF ETHIOPIAN >60 Normal >=60 [facility] Comment on above: Performed By: #### B MP #### [facility] [address] [address] [address] Rakel Fraga Glucose [Mass/Vol] 92 mg/dL Normal 74-106 [facility] Comment on above: Performed By: #### B MP #### [facility] [address] [id number] Rakel Fraga Potassium [Moles/Vol] 3.4 mmol/L Critically low 3.5-5.1 [facility] Comment on above: Performed By: #### B MP #### [facility] [address] [address] [address] Rakel Fraga Sodium [Moles/Vol] 138 mmol/L Normal 136-145 [facility] Comment on above: Performed By: #### B MP #### [facility] [address] [address] [address] Rakel Fraga Urea nitrogen [Mass/Vol] 20.0 mg/dL Critically high 7.0-18.0 [facility] Comment on above: Performed By: #### B MP #### [facility] [address] [address] [address] Rakel Fraga Urea nitrogen/Creatinine [Mass ratio] 16.9 mg/mg Normal [facility] Comment on above: Performed By: #### B MP #### [facility] [address] [address] HEAD WO CONon [...] DE PAZ Date: 2022-07-28 14:51 Normal [facility] MRI [facility] WO CONon 07-20-20 22 MRI [facility] CON EXAMINATION: MRI [facility] CON HISTORY: Anesthesia of skin ; chronic [...] NOEMÍ MORRISON Date: 2022-07-20 12:52 Normal [facility] OVA AND PARASITE EXAMINATION on 07-13-2022 Ova + Parasite Exam Final report Normal [facility] Comment on above: Result Comment: Thes e results were obtained using wet preparation(s) and trichrome stained smear. This test does not include testing for Cryptosporidium parvum, Cyclospora, or Microsporidia. Performed By: #### U AMIC #### [facility] [address] [address] [address] Rakel Fraga Result 1 Comment Normal [facility] Comment on above: Result Comment: No o va, cysts, or parasites seen. . One negative specimen does not rule out the possibility of a parasitic infection. Performed By: #### U AMIC #### [facility] [address] [address] [address] Rakel Fraga CLOSTRIDIUM DIFFICILE PCRon 07-12-2022 C difficile Toxin Gene SHADIA Negative Normal Negative [facility] Comment on above: Performed By: #### C DIFNAA #### [facility] [address] [address] [address] Rakel Fraga Physician Referralon 022 Physician Referral [id number] [facility] STOOL CULTUREon 07-10-2022 Campylobacter Culture Final report Normal [facility] Comment on above: Performed By: #### C XSTOOL ####[facility] [address] [address]Dr. Rakel Fraga E coli Shiga Toxin EIA Negative Normal Negative [facility] Comment on above: Performed By: #### C XSTOOL ####[facility] [address] [id number]. Rakel Fraga Result 1 Comment Normal [facility] Comment on above: Result Comment: No S almonella or Shigella recovered. Performed By: #### C XSTOOL ####[facility] [address] [id number]. Rakel Fraga Result Comment: No C ampylobacter species isolated. Salmonella/Shigella Screen Final report Normal [facility] Comment on above: Performed By: #### C XSTOOL ####[facility] [address] [id number]. Rakel Fraga CT ABD/PELV W CONon 07-07-20 [...] ALBERTO REDMAN Date: 2022-07-07 16:50 Normal [facility] AMYLASEon 07-04-2022 Amylase [Catalytic activity/Vol] 40 U/L Normal 25-115 [facility] Comment on above: Performed By: #### L IPA, CHILANGO, CRP, CMP ####[facility] [address] [place], [place] [address]JdKailey Rakel Fraga CBC AUTO DIFFon 07-04-2022 BASO # 0.0 103/ul Normal 0.0-0.1 [facility] Comment on above: Performed By: #### B MP #### [facility] [address] [place] [address] Dr. Rakel Fraga Basophils/100 WBC (Bld) 0.5 % Normal 0.2-2.0 [facility] Comment on above: Performed By: #### B MP #### [facility] [address] [place] [address] Dr. Rakel Fraga EO # 0.5 103/ul Normal 0.0-0.7 [facility] Comment on above: Performed By: #### B MP #### [facility] [address] [place] [address] Dr. Rakel Fraga Eosinophils/100 WBC (Bld) 6.8 % Normal 0.9-7.0 [facility] Comment on above: Performed By: #### B MP #### [facility] [address] [place] [address] Dr. Rakel Fraga Erythrocyte distribution width (RBC) [Ratio] 13.0 % Normal 11.0-15.0 [facility] Comment on above: Performed By: #### B MP #### [facility] [address] [place] [address] Dr. Rakel Fraga Hematocrit (Bld) [Volume fraction] 39.2 % Critically low 42.0-54.0 [facility] Comment on above: Performed By: #### B MP #### [facility] [address] [place] [address] Dr. Rakel Fraga Hemoglobin (Bld) [Mass/Vol] 12.7 g/dL Critically low 14.0-18.0 [facility] Comment on above: Performed By: #### B MP #### [facility] [address] [place] [address] Dr. Rakel Fraga IG # 0.02 10e3/ul Normal 0.00-0.03 [facility] Comment on above: Performed By: #### B MP #### [facility] [address] [place] [address] Dr. Rakel Fraga IG % 0.3 % Normal 0.0-0.5 [facility] Comment on above: Performed By: #### B MP #### [facility] [address] [place] [address] Dr. Rakel Fraga LYMPH # 1.5 103/ul Normal 1.2-3.8 [facility] Comment on above: Performed By: #### B MP #### [facility] [address] [place] [address] Dr. Rakel Fraga Lymphocytes/100 WBC (Bld) 22.4 % Normal 20.5-60.0 [facility] Comment on above: Performed By: #### B MP #### [facility] [address] [place] [address] Dr. Rakel Fraga MANUAL DIFF REQ NO Normal [facility] Comment on above: Performed By: #### B MP #### [facility] [address] [place] [address] Dr. Rakel Fraga MCH (RBC) [Entitic mass] 29.8 pg Normal 25.9-34.0 [facility] Comment on above: Performed By: #### B MP #### [facility] [address] [place] [address] Dr. Rakel Fraga MCHC (RBC) [Mass/Vol] 32.4 g/dL Normal 29.9-35.2 [facility] Comment on above: Performed By: #### B MP #### [facility] [address] [place] [address] Dr. Rakel Fraga MCV (RBC) [Entitic vol] 92.0 fL Normal 80.0-94.0 [facility] Comment on above: Performed By: #### B MP #### [facility] [address] [place] [address] Dr. Rakel Fraga MONO # 0.4 103/ul Normal 0.3-0.8 [facility] Comment on above: Performed By: #### B MP #### [facility] [address] [place] [address] Dr. Rakel Fraga Monocytes/100 WBC (Bld) 6.2 % Normal 1.7-12.0 [facility] Comment on above: Performed By: #### B MP #### [facility] [address] [address] [address] Rakel Fraga NEUT # 4.2 103/ul Normal 1.4-6.5 [facility] Comment on above: Performed By: #### B MP #### [facility] [address] [address] [address] Rakel Fraga Neutrophils/100 WBC (Bld) 63.8 % Normal 43.0-75.0 [facility] Comment on above: Performed By: #### B MP #### [facility] [address] [address] [address] Rakel Fraga Platelet mean volume (Bld) [Entitic vol] 9.8 fL Normal 9.5-13.5 [facility] Comment on above: Performed By: #### B MP #### [facility] [address] [address] [address] Rakel Fraga PLT 185 103/ul Normal 150-450 [facility] Comment on above: Performed By: #### B MP #### [facility] [address] [address] [address] Rakel Fraga RBC 4.26 106/ul Critically low 4.70-6.10 [facility] Comment on above: Performed By: #### B MP #### [facility] [address] [address] [address] Rakel Fraga WBC 6.6 103/ul Normal 4.0-11.0 [facility] Comment on above: Performed By: #### B MP #### [facility] [address] [address] [address] Rakel Fraga CRPon 07-04-2022 CRP [Mass/Vol] mg/L Normal <=1.0 [facility] Comment on above: Performed By: #### L IPA, CHILANGO, CRP, CMP ####[facility] [address] [address]Dr. Rakel Fraga LIPASEon 07-04-2022 Lipase [Catalytic activity/Vol] 65.0 U/L Critically low 73.0-393.0 [facility] Comment on above: Performed By: #### L IPA, CHILANGO, CRP, CMP ####[facility] [address] [address]Dr. Rakel Fraga OCC BLD IMMUNO SCREENon 06-15 OCCULT BLOOD Negative Normal NEGATIVE [facility] Comment on above: Performed By: #### U AMIC #### [facility] [address] [address] [address] Rakel Fraga PROF 14(COMP METB)on 022 Albumin [Mass/Vol] 3.7 g/dL Normal 3.4-5.0 [facility] Comment on above: Performed By: #### L IPA, CHILANGO, CRP, CMP ####[facility] [address] [address]Dr. Rakel Fraga Albumin/Globulin [Mass ratio] 1.2 {ratio} Normal [facility] Comment on above: Performed By: #### L IPA, CHILANGO, CRP, CMP ####[facility] [address] [address]Dr. Rakel Fraga ALP [Catalytic activity/Vol] 101 U/L Normal 46-116 [facility] Comment on above: Performed By: #### L IPA, CHILANGO, CRP, CMP ####[facility] [address] [address]Dr. Rakel Fraga ALT [Catalytic activity/Vol] 47 U/L Normal 16-63 [facility] Comment on above: Performed By: #### L IPA, CHILANGO, CRP, CMP ####[facility] [address] [address]Dr. Rakel Fraga Anion gap [Moles/Vol] 11.1 mmol/L Normal [facility] Comment on above: Performed By: #### L IPA, CHILANGO, CRP, CMP ####[facility] [address] [address]Dr. Rakel Fraga AST [Catalytic activity/Vol] 28 U/L Normal 15-37 [facility] Comment on above: Performed By: #### L IPA, CHILANGO, CRP, CMP ####[facility] [address] [address]Dr. Rakel Fraga Bilirubin [Mass/Vol] 0.5 mg/dL Normal 0.2-1.0 [facility] Comment on above: Performed By: #### L IPA, CHILANGO, CRP, CMP ####[facility] [address] [address]Dr. Rakel Fraga Calcium [Mass/Vol] 8.7 mg/dL Normal 8.5-10.1 [facility] Comment on above: Performed By: #### L IPA, CHILANGO, CRP, CMP ####[facility] [address] [place], [place] [address]Dr. Rakel Fraga Chloride [Moles/Vol] 110 mmol/L Critically high 98-107 [facility] Comment on above: Performed By: #### L IPA, CHILANGO, CRP, CMP ####[facility] [address] [place], [place] [address]Dr. Rakel Fraga CO2 [Moles/Vol] 26.0 mmol/L Normal 21.0-32.0 [facility] Comment on above: Performed By: #### L IPA, CHILANGO, CRP, CMP ####[facility] [address] [place], [place] [address]Dr. Rakel Fraga Creatinine [Mass/Vol] 1.23 mg/dL Normal 0.70-1.30 [facility] Comment on above: Performed By: #### L IPA, CHILANGO, CRP, CMP ####[facility] [address] [place], [place] [address]Dr. Rakel Fraga EGFR-AF ETHIOPIAN >60 Normal >=60 [facility] Comment on above: Performed By: #### L IPA, CHILANGO, CRP, CMP ####[facility] [address] [place], [place] [address]Dr. Rakel Fraga EGFR-NON AF ETHIOPIAN >60 Normal >=60 [facility] Comment on above: Performed By: #### L IPA, CHILANGO, CRP, CMP ####[facility] [address] [place], [place] [address]Dr. Rakel Fraga Globulin (S) [Mass/Vol] 3.2 g/dL Normal [facility] Comment on above: Performed By: #### L IPA, CHILANGO, CRP, CMP ####[facility] [address] [address]Dr. Rakel Fraga Glucose [Mass/Vol] 82 mg/dL Normal 74-106 [facility] Comment on above: Performed By: #### L IPA, CHILANGO, CRP, CMP ####[facility] [address] [address]Dr. Rakel Fraga Potassium [Moles/Vol] 4.1 mmol/L Normal 3.5-5.1 [facility] Comment on above: Performed By: #### L IPA, CHILANGO, CRP, CMP ####[facility] [address] [address]Dr. Rakel Fraga Protein [Mass/Vol] 6.9 g/dL Normal 6.4-8.2 [facility] Comment on above: Performed By: #### L IPA, CHILANGO, CRP, CMP ####[facility] [address] [address]Dr. Rakel Fraga Sodium [Moles/Vol] 143 mmol/L Normal 136-145 [facility] Comment on above: Performed By: #### L IPA, CHIALNGO, CRP, CMP ####[facility] [address] [address]Dr. Rakel Fraga Urea nitrogen [Mass/Vol] 23.0 mg/dL Critically high 7.0-18.0 [facility] Comment on above: Performed By: #### L IPA, CHILANGO, CRP, CMP ####[facility] [address] [address]Dr. Rakel Fraga Urea nitrogen/Creatinine [Mass ratio] 18.7 mg/mg Normal [facility] Comment on above: Performed By: #### L IPA, CHILANGO, CRP, CMP ####[facility] [address] [address]Dr. Rakel Fraga [facility] mm/hr Normal <=20 [facility] Comment on above: Performed By: #### S EDR ####[facility] [address] [address]Dr. Rakel Fraga UA RANDOM W/MICROSCOPICon BACTERIA NONE SEEN Normal NONE SEEN [facility] Comment on above: Performed By: #### U AMIC #### [facility] [address] [address] [address] Rakel Fraga Bilirubin Ql (U) Negative Normal NEGATIVE [facility] Comment on above: Performed By: #### U AMIC #### [facility] [address] [address] [address] Rakel Fraga CAST NONE SEEN Normal NONE SEEN [facility] Comment on above: Performed By: #### U AMIC #### [facility] [address] [address] [address] Rakel Fraga Clarity (U) CLEAR Normal CLEAR [facility] Comment on above: Performed By: #### U AMIC #### [facility] [address] [address] [address] Rakel Fraga Color (U) YELLOW Normal YELLOW [facility] Comment on above: Performed By: #### U AMIC #### [facility] [address] [address] [address] Rakel Fraga Crystals LM Nom (Urine sed) NONE SEEN Normal NONE SEEN [facility] Comment on above: Performed By: #### U AMIC #### [facility] [address] [address] [address] Rakel Fraga Epithelial cells LM Ql (Urine sed) RARE Normal NONE SEEN /RARE [facility] Comment on above: Performed By: #### U AMIC #### [facility] [address] [address] [address] Rakel Fraga Glucose Ql (U) Negative Normal NEGATIVE [facility] Comment on above: Performed By: #### U AMIC #### [facility] [address] [address] [address] Rakel Fraga Hemoglobin Ql (U) Negative Normal NEGATIVE [facility] Comment on above: Performed By: #### U AMIC #### [facility] [address] [address] [address] Rakel Fraga Ketones Ql (U) Negative Normal NEGATIVE [facility] Comment on above: Performed By: #### U AMIC #### [facility] [address] [address] [address] Rakel Fraga LEUKOCYTES Negative Normal NEGATIVE [facility] Comment on above: Performed By: #### U AMIC #### [facility] [address] [address] [address] Rakel Fraga MUCOUS NONE SEEN Normal NONE SEEN [facility] Comment on above: Performed By: #### U AMIC #### [facility] [address] [address] [address] Rakel Fraga Nitrite Ql (U) Negative Normal NEGATIVE [facility] Comment on above: Performed By: #### U AMIC #### [facility] [address] [place] [address] Dr. Rakel Fraga pH (U) 5.5 [pH] Normal 5-9 [facility] Comment on above: Performed By: #### U AMIC #### [facility] [address] [place] [address] Dr. Rakel Fraga RBC NONE SEEN Abnormal 0-2 [facility] Comment on above: Performed By: #### U AMIC #### [facility] [address] [place] [address] Dr. Rakel Fraga SPEC GRAVITY >=1.030 Abnormal 1.005-<=1.025 [facility] Comment on above: Performed By: #### U AMIC #### [facility] [address] [place] [address] Dr. Rakel Fraga UA PROTEIN Negative Normal NEGATIVE/ TRACE [facility] Comment on above: Performed By: #### U AMIC #### [facility] [address] [place] [address] Dr. Rakel Fraga Urobilinogen Qn (U) 0.2 {Arnoldo'U}/dL Normal 0.2 - 1. 0 [facility] Comment on above: Performed By: #### U AMIC #### [facility] [address] [place], [place] [address] Dr. Rakel Fraga WBC NONE SEEN Normal NONE SEEN [facility] Comment on above: Performed By: #### U [facility] #### [facility] [address] [place], [place] [address] Dr. Rakel Fraga NM HEPATOBILIARY SCAN W [...] by: JARETT GARCÍA Date: 2022-06-29 16:08 Normal [facility] US SINGLE QUAD RT UPPERon US [...] by: NOEMÍ MORRISON Date: 2022-06-25 13:03 Normal [facility] Coding Summaryon 04-05-2020 Coding Summary CODING DATE: 04/05/2020 [facility] STATUS: Home PAYOR: Medicare ADMIT DX: [...] Concha Lovett Date Saved: 04/05/2020 12:34 pm [facility] Consent Formson 03-31-2020 Consent Forms [id number] Management[facility] 03-14 Medication Management [id number] Anest[facility] Note[facility] 03-30-2020 Anesthesia Note Patient: [...] history): All Problems Depression / SNOMED CT 652487801 / Confirmed Asthma / SNOMED CT 758200097 / Confirmed Chronic maxillary sinusitis / SNOMED CT 05626939 / Confirmed Epileptic seizures / SNOMED CT 515848996 / Confirmed Lumbago / SNOMED CT 035526026 / Confirmed Lumbar spondylosis / SNOMED CT 691554685 / Confirmed Histories Family History: No family [...] Oriented. Review / Management Laboratory Results Plan [place] [employer] Anesthesiologists#( A) physical status classification: Class II. Anesthetic Preoperative Plan Anesthesia: Monitored anesthesia care. Anesthetic plan, risks, benefits, and alternatives discussed with the patient and/or family. Patient verbalized understanding. [Electronically Signed on: 03/30/2020 09:37 EDT] Nando Saeed MD [Verified on: 03/30/2020 09:37 EDT] Nando Saeed MD [facility] Inpatient Patient Summaryon 03-30-2020 Inpatient [place] [address] Patient Discharge Instructions Name: SHANEL KALANI Mario : 1970 Patient Address: [address] [place] [address] Primary Care Provider: Name: Marcia Rodriguez DO After you are discharged if you find you have any questions, please, call [phone] ext [phone] to speak to a nurse. Discharge Diagnosis: Lumbago; Lumbar spondylosis Prescription Information: If you have been given a prescription for narcotics, seek immediate medical attention if you have any difficulty breathing or any sudden status changes such as confusion and sleepiness. If you or anyone you know is experiencing suicidal thoughts, mental health, alcohol and/or drug addiction problems; contact the [facility] 06/05 Crisis Hotline -Text 4HVFL bf [phone]. If you received any narcotics, sedation, or [...] business decisions or sign any legal documents [facility] would like to thank you for [...] for Disease Control and Prevention June 2014 [facility] MAGR Intraoperative Recordon 03-30-2020 MAGR Intraoperative Record MAGR Intra-Op Record Summary Primary Physician: Hany Galo MD Finalized Date/Time: 03/30/20 09:59:33 Pt. Name: KALANI ASENCIO /Sex: 1970 MALE Med Rec #: [id number] Physician: Hany Galo MD Financial #: [id number] Pt. Type: D Room/Bed: / Admit/Disch: 03/30/20 [...] Role Performed Surgeon - Primary Anesthesiologist of Director Commercial Sales Record Time In 03/30/20 09:48:00 03/30/20 09:48:00 03/30/20 09:48:00 Time Out 03/30/20 09:57:00 03/30/20 09:57:00 03/30/20 09:57:00 Procedure Medial Branch Medial Branch Medial Branch Block(Bilateral) Block(Bilateral) Block(Bilateral) Last Modified By: Mitzi Wu RN, Stephanie RN Sauer, Stephanie RN 03/30/20 09:57:46 03/30/20 09:57:46 03/30/20 09:57:46 Entry 4 Entry 5 Entry 6 Case Attendee Mitzi Wu RN, Kelly Calmes, Luke T Role Performed Director Commercial Sales Director Commercial Sales Tavern Car Attendant Time In 03/30/20 09:48:00 03/30/20 09:48:00 03/30/20 09:48:00 Time Out 03/30/20 09:57:00 03/30/20 09:57:00 03/30/20 09:57:00 Procedure Medial Branch Medial Branch Medial Branch Block(Bilateral) Block(Bilateral) Block(Bilateral) Last Modified By: Mitzi Wu RN, Stephanie RN Sauer, Stephanie RN 03/30/20 09:57:46 03/30/20 09:57:46 03/30/20 09:57:46 Entry 7 Entry 8 Entry 9 Case Attendee Anegli Belcher Courtney CONSULTATIVE SALES ASSOCIATE Ke Allen CST Role Performed Scrub Personnel Scrub Personnel Tavern Car Attendant Time In 03/30/20 09:48:00 03/30/20 09:48:00 03/30/20 [...] Agents (Im.270) Povidone-Iodine Prep By Abida Suh CONSULTATIVE SALES ASSOCIATE Prep Area (Im.270) Back Skin Prep Agent [...] Signed By: Mitzi Wu RN 03/30/20 09:59 [facility] 0 03-30-2020 MAGR Preoperative Record MAGR Pre-Op Record Summary Primary Physician: Hany Galo MD Finalized Date/Time: 03/30/20 10:12:44 Pt. Name: KALANI ASENCIO./Sex: 1970 MALE Med Rec #: [id number] Physician: Hany Galo MD Financial #: [id number] Pt. Type: D Room/Bed: / Admit/Disch: 03/30/20 [...] Signed By: Kassie James RN 03/30/20 10:12 [facility] Operative Report - Surgeon/P hilary 03-30-2020 [...] on: 03/30/2020 09:56 EDT] Hany Galo MD [facility] Patient Handouton 03-30-2020 Patient Handout Pain [...] to your first appointment after your procedure [facility] Coding Summaryon 03-29-2020 Coding Summary CODING DATE: 03/29/2020 [facility] STATUS: Home PAYOR: Medicare ADMIT DX: [...] Mandy Tarango Date Saved: 03/29/2020 03:20 pm [facility] History and Physicalon 03-29 History and Physical [id number] #[id number] The patient has been examined and the medical record reviewed. The indications for surgery and exam are unchanged. [Electronically Signed on: 03/30/2020 08:37 EDT] Hany Galo MD [Verified on: 03/30/2020 08:37 EDT] Hany Galo MD [Transcribed on: 03/29/2020 14:32 EDT] [facility] Lab - Immunology/Serology Re sultson 03-29-2020 Lab - Immunology/Serology Results [id number] .00OTGTIFF [facility] Provider Orderson 03-28-2020 Provider Orders [id number] .00OTGTIFF [facility] SARS-CoV-2 (COVID-19) PCRon 03-28-2020 COVID-19 PCR Not Detected Normal Not Detected [facility] Comment on above: Order Comment: SENT TO [facility] 03/27/2020 SD Result Comment: Perf ormed at [facility] Department of Pathology [address] [place] [id number] Results Called To Javier Dowell RN, Manager Global By LR And Read Back For Confirmation On 03/28/2020 15:36:12 EDT. Performed By: #### 6 [id number] ####[facility] (DEFAULT)[address] [place] [address] Progress Note - Provideron 0 03-25-2020 Progress Note - Provider [id number] .00OTGTIFF [facility] Coding Summaryon 03-24-2020 Coding Summary CODING DATE: 03/24/2020 [facility] STATUS: Home PAYOR: Medicare ADMIT DX: [...] Madeleine Baugh Date Saved: 03/24/2020 04:50 pm [facility] Coding Summary CODING DATE: 03/24/2020 [facility] STATUS: Home PAYOR: Medicare ADMIT DX: [...] Madeleine Baugh Date Saved: 03/24/2020 01:02 pm [facility] Coding Summaryon 03-21-2020 Coding Summary CODING DATE: 03/21/2020 [facility] STATUS: Home PAYOR: Medicare ADMIT DX: [...] Concha Lovett Date Saved: 03/21/2020 07:48 am [facility] Consent Formson 03-17-2020 Consent Forms [id number] Medication Managementon Medication Management [id number] [facility] Anesthesia Noteon 03-16-2020 Anesthesia Note Patient: [...] on: 03/16/2020 10:38 EDT] Warren Quach MD [facility] Anesthesia Note Patient: KALANI ASENCIO Age: [...] history): All Problems Depression / SNOMED CT 099047080 / Confirmed Asthma / SNOMED CT 666160383 / Confirmed Chronic maxillary sinusitis / SNOMED CT 08950108 / Confirmed Epileptic seizures / SNOMED CT 470371234 / Confirmed Lumbago / SNOMED CT 626678048 / Confirmed Lumbar spondylosis / SNOMED CT 654293739 / Confirmed Histories Family History: No family [...] Oriented. Review / Management Laboratory Results Plan [place] [employer] Anesthesiologists#( A) physical status classification: Class II. Anesthetic Preoperative Plan Anesthesia: Monitored anesthesia care. Anesthetic plan, risks, benefits, and alternatives discussed with the patient and/or family. Patient verbalized understanding. Informed consent was given. Anesthetic technique: Monitored anesthesia care. [Electronically Signed on: 03/16/2020 10:32 EDT] Warren Quach MD [Verified on: 03/16/2020 10:32 EDT] Warren Quach MD [facility] Inpatient Patient Summaryon 03-16-2020 Inpatient [place] [address] Patient Discharge Instructions Name: KALANI ASENCIO : 1970 Patient Address: [address] [place] [address] Primary Care Provider: Name: Marcia Rodriguez DO After you are discharged if you find you have any questions, please, call [phone] ext [phone] to speak to a nurse. Discharge Diagnosis: Lumbago; Lumbar spondylosis Prescription Information: If you have been given a prescription for narcotics, seek immediate medical attention if you have any difficulty breathing or any sudden status changes such as confusion and sleepiness. If you or anyone you know is experiencing suicidal thoughts, mental health, alcohol and/or drug addiction problems; contact the [facility] 06/05 Crisis Hotline -Text 4HKSS uu 683379. If you received any narcotics, sedation, or [...] business decisions or sign any legal documents [facility] would like to thank you for [...] for Disease Control and Prevention June 2014 [facility] Lab - Immunology/Serology Re sultson 03-16-2020 Lab - Immunology/Serology Results [id number] .00OTGTIFF [facility] MAGR Intraoperative Recordon 03-16-2020 MAGR Intraoperative Record MAGR Intra-Op Record Summary Primary Physician: Hany Galo MD Finalized Date/Time: 03/16/20 10:40:07 Pt. Name: KALANI ASENCIOO.B./Sex: 1970 MALE Med Rec #: [id number] Physician: Hany Galo MD Financial #: [id number] Pt. Type: D Room/Bed: / Admit/Disch: 03/16/20 [...] Role Performed Surgeon - Primary Anesthesiologist of Director Commercial Sales Record Time In 03/16/20 10:30:00 03/16/20 10:30:00 03/16/20 10:30:00 Time Out 03/16/20 10:36:00 03/16/20 10:36:00 03/16/20 10:36:00 Procedure Medial Branch Medial Branch Medial Branch Block(Bilateral) Block(Bilateral) Block(Bilateral) Last Modified By: Swathi Beltran RN, Barbara RN Long, Barbara RN 03/16/20 10:36:38 03/16/20 10:36:38 03/16/20 10:36:38 Entry 4 Entry 5 Entry 6 Case Attendee Jorge MORRIS, Krystle Goldman Liberty G Role Performed Director Commercial Sales Director Commercial Sales Scrub Personnel Time In 03/16/20 10:30:00 03/16/20 10:30:00 03/16/20 10:30:00 Time Out 03/16/20 10:36:00 03/16/20 10:36:00 03/16/20 10:36:00 Procedure Medial Branch Medial Branch Medial Branch Block(Bilateral) Block(Bilateral) Block(Bilateral) Last Modified By: Swathi Beltran RN, Barbara RN Long, Barbara RN 03/16/20 10:36:38 03/16/20 10:36:38 03/16/20 10:36:38 Entry 7 Case Attendee Courtney Fay Role Performed Tavern Car Attendant Time In 03/16/20 10:30:00 Time Out 03/16/20 [...] Signed By: Swathi Beltran RN 03/16/20 10:40 [facility]-16-2020 [facility] Preoperative Record MAGR Pre-Op Record Summary Primary Physician: Hany Galo MD Finalized Date/Time: 03/16/20 10:54:47 Pt. Name: KALANI ASENCIOO.B./Sex: 1970 MALE Med Rec #: [id number] Physician: Hany Galo MD Financial #: [id number] Pt. Type: D Room/Bed: / Admit/Disch: 03/16/20 [...] Signed By: Blanka Szymanski RN 03/16/20 10:54 [facility] Operative Report - Surgeon/P hilary 03-16-2020 [...] on: 03/16/2020 10:35 EDT] Hany Galo MD [facility] Patient Handouton 03-16-2020 Patient Handout Pain [...] to your first appointment after your procedure [facility] History and Physicalon 03-15 History and Physical [id number] .00OTGTIFF The patient has been examined and the medical record reviewed. The indications for surgery and exam are unchanged. [Electronically Signed on: 03/16/2020 10:25 EDT] Hany Galo MD [Verified on: 03/16/2020 10:25 EDT] Hany Galo MD [Transcribed on: 03/15/2020 13:40 EDT] BK Normal [facility] Lab - Reference Lab Resultso n 03-15-2020 Lab - Reference Lab Results [id number] .00OTGTIFF [facility] Progress Note - Provideron 0 03-15-2020 Progress Note - Provider [id number] .00OTGTIFF [facility] SARS-CoV-2 (COVID-19) PCRon 03-15-2020 COVID-19 PCR Not Detected Normal Not Detected [facility] Comment on above: Order Comment: Sent to [facility] 03/13/2020 11:05:18 EDT SD Performed By: #### 6 [id number] ####[facility] (DEFAULT)[address] [place] [address] Provider Orderson 03-14-2020 Provider Orders [id number] .00OTGTIFF [facility] Coding Summaryon 03-10-2020 Coding Summary CODING DATE: 03/10/2020 [facility] STATUS: Home PAYOR: Medicare ADMIT DX: [...] Madeleine Baugh Date Saved: 03/10/2020 03:34 pm [facility] Coding Summaryon 03-08-2020 Coding Summary CODING DATE: 03/08/2020 [facility] STATUS: Home PAYOR: Medicare ADMIT DX: [...] Madeleine Baugh Date Saved: 03/08/2020 09:40 am [facility] Coding Summaryon 02-29-2020 Coding Summary CODING DATE: 02/29/2020 [facility] STATUS: Home PAYOR: Medicare APC DESCRIPTION [...] Tarango Revised Date Saved: 02/24/2020 08:52 am [facility] Controlled Substances Agreem entson 02-26-2020 Controlled Substances Agreements [id number] .00OTGTIFF [facility] Progress Note - Provideron 0 02-25-2020 Progress Note - Provider [id number] .00OTGTIFF [facility] XR Spine Lumbosacral Complet e w/ [...] Davi Bassett MD 02/26/20 6:21 am Technologist: [facility] XR Spine Thoracic 3 Viewson [...] Davi Bassett MD 02/26/20 6:21 am Technologist: [facility] Vital Signs Date Time Vital Sign Value Performing Clinician Facility 08-29-2023 14:20-0500 Body height 187.96 cm Jemalwin Teague Other [facility] Other 08-29-2023 14:20-0500 Body mass index (BMI) [Ratio] 19.9 kg/m2 Jemal Ho Other [facility] Other 08-29-2023 14:20-0500 Body weight 70.31 kg Jemal Ho Other [facility] Other 06-11-2023 14:15-0400 Body height 187.96 cm Imad AsaEyetronics Other [facility] Other 06-11-2023 14:15-0400 Body mass index (BMI) [Ratio] 19.9 kg/m2 Imad Asaad Other [facility] Other 06-11-2023 14:15-0400 Body weight 70.31 kg Imad Asaad Other [facility] Other 06-11-2023 14:15-0400 Diastolic blood pressure 71 mm[Hg] Imad Asaad Other [facility] Other 06-11-2023 14:15-0400 Respiratory rate 18 /min Imad Asaad Other [facility] Other 06-11-2023 14:15-0400 Systolic blood pressure 122 mm[Hg] Imad Asaad Other [facility] Other 04-18-2023 14:50-0400 Diastolic blood pressure 77 mm[Hg] [facility] 04-18-2023 14:50-0400 Heart rate 73 /min [facility] 04-18-2023 14:50-0400 Respiratory rate 16 /min [facility] 04-18-2023 14:50-0400 SaO2% (BldA) [Mass fraction] 98 % [facility] 04-18-2023 14:50-0400 Systolic blood pressure 106 mm[Hg] [facility] 04-18-2023 12:36-0400 Body height 185.[address] [facility] 04-18-2023 12:36-0400 Body temperature 98.2 [degF] [facility] 04-18-2023 12:36-0400 Body weight 68.[address] [facility] 03-13-2023 14:00-0400 Body height 187.96 cm Imad Asaad Other [facility] Other 03-13-2023 14:00-0400 Body mass index (BMI) [Ratio] 19.51 kg/m2 Imad Asaad Other [facility] Other 03-13-2023 14:00-0400 Body weight 68.95 kg Imad Asaad Other [facility] Other 03-13-2023 14:00-0400 Diastolic blood pressure 70 mm[Hg] Imad Asaad Other [facility] Other 03-13-2023 14:00-0400 Respiratory rate 18 /min Imad Asaad Other [facility] Other 03-13-2023 14:00-0400 Systolic blood pressure 150 mm[Hg] Imad Asaad Other [facility] Other Encounters Encounter Date Encounter Type Care Provider Facility Start: 04-06-2024 End: 04-06-2024 ambulatory CARMEN AICHHOLZ Not Available Start: 02-27-2024 End: 02-27-2024 ambulatory DAVID LOWE Not Available Start: 02-24-2024 End: 02-24-2024 ambulatory CARMEN AICHHOLZ Not Available Start: 01-13-2024 End: 01-13-2024 ambulatory CARMEN AICHHOLZ Not Available Start: 10-09-2023 End: 10-09-2023 ambulatory CARMEN AICHHOLZ Not Available Start: 08-29-2023 End: 08-29-2023 ambulatory Jemal Teague Other [facility] Other Start: 08-29-2023 Office outpatient new 30 minutes Jemal Teague [facility] Start: 08-27-2023 End: 08-27-2023 ambulatory NON STAFF Facility:[facility] Start: 08-27-2023 End: 08-27-2023 ambulatory NON STAFF [facility] Work Phone: Start: 08-27-2023 End: 08-27-2023 Patient encounter procedure [facility] [place] Work Phone: Start: 06-11-2023 End: 06-11-2023 ambulatory Imad Asaad Other [facility] Other Start: 06-11-2023 Office outpatient visit 25 minutes Imad Asaad [facility] Start: 04-18-2023 End: 04-18-2023 ambulatory Imad Asaad Facility:[facility] Start: 04-18-2023 End: 04-18-2023 Admission to same day surgery center [facility] Work Phone: Start: 04-18-2023 End: 04-18-2023 ambulatory NON STAFF [facility] Work Phone: Start: 03-13-2023 End: 03-13-2023 ambulatory Imad Asaad Other [facility] Other Start: 03-13-2023 Office outpatient new 45 minutes Imad Asaad [facility] Start: 03-12-2023 End: 03-13-[address] JARETT GARCÍA Facility:[facility] Start: 01-31-2023 End: 02-01-2023 ambulatory NARENDRANATH LAKSHMIPATHY . Facility:[facility] Start: 01-14-2023 End: 01-14-2023 ambulatory SEROLOGIST CARMEN FELISA Facility:[facility] Start: 01-07-2023 End: 01-08-2023 ambulatory SEROLOGIST CARMEN AICHSTACEYZ Facility:[facility] Start: 01-02-2023 End: 01-02-2023 ambulatory SEROLOGIST CARMEN AICKATHRYN Facility:[facility] Start: 11-07-2022 End: 11-08-2022 ambulatory APOORVA MOLINA Facility:[facility] Start: 11-01-2022 End: 11-02-2022 ambulatory STACY JEFFERSON . Facility:[facility] Start: 10-16-2022 End: 10-16-[address] HANY GALO . Facility:[facility] Start: 10-09-2022 End: 10-10-2022 ambulatory SHELIA SANTOSA FELISA Facility:[facility] Start: 09-27-2022 End: 09-28-[address] HANY GALO . Facility:[facility] Start: 09-17-2022 End: 09-18-2022 ambulatory STACY JEFFERSON . Facility:[facility] Start: 09-12-2022 End: 09-13-2022 ambulatory STACY JEFFERSON . Facility:[facility] Start: 09-09-2022 End: 09-10-2022 ambulatory NERI CARABALLO Facility:[facility] Start: 08-14-2022 ambulatory CARMEN ALLRED Birgit PRATT Fa cility:Too Start: 08-09-2022 End: 08-10-2022 ambulatory STACY JEFFERSON . Facility:[facility] Start: 07-28-2022 End: 07-28-2022 ambulatory ELIAS COLLINS . Facility:[facility] Start: 07-20-2022 End: 07-21-2022 ambulatory DAVID ANGUIANO Facility:[facility] Start: 07-10-2022 End: 07-10-2022 ambulatory SEROLOGIST CARMEN FALLONMiteshSTACEYJoe Facility:[facility] Start: 07-10-2022 ambulatory CARMEN CARMEN FELISA Faci lity:Too Start: 07-06-2022 End: 07-07-2022 ambulatory SEROLOGIST CARMEN FELISA Facility:[facility] Start: 07-05-2022 End: 07-05-2022 ambulatory SEROLOGIST CARMEN KERVINCHANTELLE Facility:[facility] Start: 07-04-2022 End: 07-05-2022 ambulatory SEROLOGIST CARMEN KERVINSTACEYZ Facility:[facility] Start: 06-29-2022 End: 06-30-2022 ambulatory SEROLOGIST CARMEN KERVINSTACEYZ Facility:[facility] Start: 06-25-2022 End: 06-26-2022 ambulatory SEROLOGIST CARMEN KERVINSTACEYZ Facility:[facility] Start: 05-10-2022 End: 05-11-2022 ambulatory STACY JEFFERSON . Facility:[facility] Procedures Date Procedure Procedure Detail Performing Clinician Start: 08-27-2023 X-ray of cervical spine Start: 04-18-2023 Colonoscopy Plan of Treatment Date Care Activity Detail Author Start: 05-02-2023 ambulatory Ambulatory Facility:[facility] Start: 04-18-2023 [facility] Patient Education Hemorrhoids (DC) [facility] Work Phone: Payers Date Payer Category Payer Self-pay [id number] 2014 Unknown [id number] 1970 Unknown [id number] 2.16.8 40.1.377422.3.579.2.727 1970 Unknown [id number] 2.16.84 0.1.037664.3.579.2.593 1970 Unknown [id number] 2.16.84 0.1.481296.3.579.2.593 1970 Unknown [id number] 2.16.84 0.1.329650.3.579.2.593 1970 Unknown [id number] 2.16.84 0.1.377184.3.579.2.593 1970 Unknown [id number] .16.84 0.1.691225.3.579.2.593 1970 Unknown [id number] .16.84 0.1.413588.3.579.2.593 1970 Unknown [id number] .16.84 0.1.582699.3.579.2.593 1970 Unknown [id number] 2.16.84 0.1.038374.3.579.2.593 1969 Unknown [id number] .16.84 0.1.907782.3.579.2.593 1970 Unknown [id number] .16.84 0.1.513626.3.579.2.593 1969 Unknown [id number] .16.84 0.1.085360.3.579.2.593 1969 Unknown [id number] .16.84 0.1.064127.3.579.2.593 1969 Unknown [id number] .16.84 0.1.257563.3.579.2.593 1969 Unknown [id number] .16.84 0.1.458496.3.579.2.593 1969 Unknown [id number] .16.84 0.1.001094.3.579.2.593 1969 Unknown [id number] 2.16.84 0.1.844946.3.579.2.593 1969 Unknown [id number] 2.16.84 0.1.562489.3.579.2.593 1970 Unknown [id number] 2.16.84 0.1.811995.3.579.2.593 1969 Unknown [id number] 2.16.84 0.1.719494.3.579.2.593 1969 Unknown [id number] 2.16.84 0.1.429110.3.579.2.593 1969 Unknown [id number] 2.16.84 0.1.583605.3.579.2.593 1969 Unknown [id number] 2.16.84 0.1.329649.3.579.2.593 1969 Unknown [id number] 2.16.84 0.1.571715.3.579.2.593 1969 Unknown [id number] 2.16.84 0.1.133974.3.579.2.593 1970 Unknown [id number] 2.16.84 0.1.139032.3.579.2.9 1970 Unknown [id number] 2.16.84 0.1.011789.3.579.2.1258 1970 Unknown [id number] 2.16.84 0.1.212078.3.579.2.1259 1969 Unknown [id number] 2.16.84 0.1.412917.3.579.2.1258 1970 Unknown [id number] .16.840 .1.000517.3.579.2.9 1960 Medicaid [id number] 1960 Medicare [id number] Medicare Medicare Outpatient [id number] [id number] Unknown [id number] 2.16.8 40.1.009841.3.579.2.531 Unknown [id number] 2.16.8 40.1.285663.3.579.2.531 Social History Date Type Detail Facility Sex Assigned At [employer] [facility] Other Start: 04-18-2023 End: 04-18-2023 Tobacco smoking status NHIS Ex-smoker (finding) [facility] Start: 1970 Sex Assigned At Male [facility] Goals Date Patient Goal Desired Activity [...] Carpal tunnel syndrome, left (ICD-10 - G56.02) [facility] Other 08-29-2023 Evaluation note* Encounter Date Diagnosis Assessment Notes Treatment Notes Treatment Clinical Notes May, Diarrhea (ICD-10 - R19.7) May, Exocrine pancreatic insufficiency (ICD-10 - K86.81) [facility] Other [facility]* Encounter Date Diagnosis Assessment Notes Treatment Notes Treatment Clinical Notes February, Diarrhea (ICD-10 - R19.7) February, Pancreatic insufficiency (ICD-10 - K86.89) February, Weight loss (ICD-10 - R63.4) [facility] Other 04-20-2023 NoteCONSULTATION CONSULTATION DATE: 01/31/2023 TO: [...] our patients to inform us about any pyjs-qdx-nttbchd medications or herbal remedies/nutritional supplements/alternative remedies. 2. [...] treatment options with their primary care provider.[id number] Note CONSULTATION CONSULTATION DATE: 11/01/2022 HISTORY OF [...] otherwise indicated. Patient agrees with this plan.[id number] Note CONSULTATION CONSULTATION DATE: 09/27/2022 HISTORY OF [...] be followed up in the clinic thereafter.[facility] 09-12-2022 NoteCONSULTATION CONSULTATION DATE: 09/12/2022 HISTORY OF [...] of care and all questions were answered.[facility] [id number] NoteCONSULTATION PROCEDURE DATE: 08/09/2022 PREOPERATIVE DIAGNOSIS: Bilateral [...] in the clinic in three months' time.[id number] NoteCONSULTATION CONSULTATION DATE: 08/09/2022 HISTORY OF PRESENT [...] and patient is in agreement with this.[facility] 05-10-2022 NoteCONSULTATION CONSULTATION DATE: 05/10/2022 HISTORY OF [...] otherwise indicated. Patient agrees with the plan.[facility] Evaluation noteNo assessment information availableSelect [facility] Work Phone: History and physical note Author Jhon Medina [facility] April 18, 2023 1:56pm Note Date/Time April 18, 2023 1:56p m [facility] [address] [place] [address] Gastroenterology H&P Signed Patient: Kalani Asencio MR#: [id number] : 1970 Acct:[id number] Age/Sex: 53 / M Adm Date: 3 Loc: Room: Type: [facility] Attending Dr: Jhon Medina MD Copies to: [...] signed by Jhon Medina MD> 04/18/23 1356 [facility] Work Phone: Hisvdue general Narrative - Reported* Type Description Date Medical History Asthma Medical History Depression Medical History Seasonal Allergies Medical History seizure disorder Surgical History Back surgery 2009 Surgical History bilat knee surgies 2008 [facility] Other [facility] general Narrative - Reported* Type Description Date Medical History Asthma Medical History Depression Medical History Seasonal Allergies Medical History seizure disorder Medical History anxiety Surgical History Back surgery 2009 Surgical History bilat knee surgies 2008 Hospitalization History see above [facility] Other Hospital Discharge instructions Additional Instructions DISCHARGE [...] scheduled -Follow up with PCP. -Office number [phone]. [facility] Work Phone: Reason for visit NarrativePATIENT IS HERE FOR DIARRHEA AND PANCREATIC INSUFFICIENCY AT THE REQUEST OF CARMEN PRATT. RECENT TESTING IN REFERRAL [facility] Other Summary Purpose Family History No Family [...] Date/ Time Advance Directives No March 05 9 9:18am Advance Directive Response Recorded Date/ Time Advance Directives No March 05 9 8:18am Hospital Course Note [facility] SURGERY Clinical Discharge Summary PERSON INFORMATION Name KALANI ASENCIO Age 50 Years 1970 Sex MALE Language Mosotho PCP Marcia Rodriguez DO Marital Status Med Service Pain Management Surgery Acct# Arrival 03/30/2020 08:43:00 Visit Reason Low back pain Acuity LOS 006 00:00 Address: [address] [place] [address] Comment: PROVIDER INFORMATION VITALS INFORMATION Vital Sign [...] history): All Problems Depression / SNOMED CT 995264501 / Confirmed Asthma / SNOMED CT 444083548 / Confirmed Chronic maxillary sinusitis / SNOMED CT 77921335 / Confirmed Epileptic seizures / SNOMED CT 767583135 / Confirmed Lumbago / SNOMED CT 533258425 / Confirmed Lumbar spondylosis / SNOMED CT 517509385 / Confirmed Physical Examination VS/Measurements Vital Signs [...] history): All Problems Depression / SNOMED CT 404166066 / Confirmed Asthma / SNOMED CT 933555686 / Confirmed Chronic maxillary sinusitis / SNOMED CT 46677082 / Confirmed Epileptic seizures / SNOMED CT 411734138 / Confirmed Lumbago / SNOMED CT 083096839 / Confirmed Lumbar spondylosis / SNOMED CT 193435520 / Confirmed Physical Examination VS/Measurements Vital Signs (last 24 hrs) Last Charted Heart Rate Peripheral 71 bpm (MAR 30:09) Resp Rate 16 br/min (MAR 30:) SBP 137 mmHg (MAR 30 09:53) DBP 93 mmHg (MAR 30 09:53) SpO2 98 % (MAR 30:50) Weight 70.000 kg (MAR 30:) Height 185.42 cm (LIN 17 09:09) Rev (more content not included)... Chief Complaint and Reason for Visit Chief Complaint Diarrhea, Weight Los s Chief Complaint M54.2 Reason for Referral Reason evaluate and treat f or cervical pain Diagnosis 1 Cervical pain (neck) (M54.2) Referral Organization [facility] uros[facility]gery Referring Provider First Name Jemal Referring Provider Last Name Ho Referring Provider Specialty Neurologica l Surgery Referred [facility] Referred Provider Tori Sanchez Referred Address [address], [place],[address] Referred Provider Specialty Pain Medicin e Referral Priority Routine Additional Source Comments (unrecognized sect ion and content) No Status Records FoundNo Status Records FoundNo Status Records FoundNo Status Records FoundNo Status Records Found INFORMATION SOURCE (unrecogn ized section and content) DATE CREATED AUTHOR 04/30/2020 [facility] DATE CREATED AUTHOR AUTHOR'S ORGANIZ ATION 08/07/2022 [facility] DATE CREATED AUTHOR AUTHOR'S ORGANIZ ATION [facility] DATE CREATED AUTHOR AUTHOR'S ORGANIZ ATION 11/22/[address] [facility] DATE CREATED AUTHOR AUTHOR'S ORGANIZ ATION 04/07/2024 [facility] EPIC Care Teams (unrecognized sec [...] BE BASED ON THE PRIMARY CLINICAL RECORDS. [facility] provides no warranty or guarantee of the accuracy or completeness of information in this document.
--- NOTE | 2024-04-09 10:36 | PM.CN ---
Consult Note: HPI Data of Consult Patient: known to practice within the last 3 years Requesting Physician: Renetta Blood NP Primary Care Provider: Carmen Pratt NP Consult Narrative Reason for consult: chronic low back pain Narrative: Nabeel Asencio a pleasant 53 year old male presents for evaluation and management of chronic low back pain. Pain today 1/10 in low back, stabbing aching tightness. Increasing to 7/10 at the worst. Pain increased with twisting, pushing, pulling, sitting too long, lifting, standing, activity. Pain improved with medications. Currently utilizing tylenol BID PRN, zonegran 100mg AM 200mg HS and sertraline 100mg AM. Previously benefitted from lower Lumbar RFAs and left LCIH RFA. Recent imaging of lumbar spine consistent with degenerative changes and lumbar spondylosis. Pt engaged in HEP greater than 6 weeks without benefit. Recently underwent bilateral L1-2 L2-3 facet medial branch block #1 with >80% improvement immediately following and hours after the procedure. cc:: CC: Renetta Blood NP Review of Systems ROS Status of ROS 10 or more systems reviewed and unremarkable except as noted in history and below Musculoskeletal Reports: back pain PFSH PFS Medical History Seizures ?R56.9 - Unspecified convulsions (ICD-10) Sleep apnea ?G47.30 - Sleep apnea, unspecified (ICD-10) Asthma ?J45.909 - Unspecified asthma, uncomplicated (ICD-10) Social History Smoking status: Former smoker Meds Home Medications and Allergies Home Medications ?Medication ?Instructions ?Recorded ?Confirmed ?Type albuterol 90 mcg/actuation aerosol 90 mcg inhalation .q6 PRN wheezing 05/16/23 03/31/24 History inhaler levetiracetam 500 mg tablet 500 mg PO DAILY 05/16/23 03/31/24 History mirtazapine 15 mg tablet (Remeron) 15 mg PO DAILY 05/16/23 03/31/24 History primidone 50 mg tablet 50 mg PO DAILY 05/16/23 03/31/24 History zonisamide 100 mg capsule 200 mg PO BEDTIME 05/16/23 03/31/24 History albuterol sulfate 90 mcg/actuation 2 inh inhalation Q6H PRN shortness 06/13/23 03/31/24 History aerosol inhaler of breath or wheezing biotin 10,000 mcg capsule 10,000 mcg PO DAILY 06/13/23 03/31/24 History calcium carbonate 600 mg-vitamin 1 tab PO DAILY 06/13/23 03/31/24 History D3 20 mcg (800 unit) tablet luuspw-ohyueijp-ooleozd 1 cap PO TID 06/13/23 03/31/24 History 24,000-76,000-120,000 unit capsule,delayed rel (Creon) melatonin 3 mg capsule 3 mg PO DAILY 06/13/23 03/31/24 History montelukast 10 mg tablet 10 mg PO DAILY 06/13/23 03/31/24 History sertraline 50 mg tablet 100 mg PO DAILY 06/13/23 03/31/24 History budesonide-formoterol HFA 160 2 inh inhalation BID 03/04/24 03/31/24 History mcg-4.5 mcg/actuation aerosol inhaler (Breyna) fexofenadine 180 mg tablet mg 03/04/24 History levetiracetam 500 mg tablet 1,000 mg PO .hs 03/04/24 03/31/24 History zonisamide 100 mg capsule 100 mg PO DAILY 03/04/24 03/31/24 History Allergies Allergy/AdvReac Type Severity Reaction Status Date / Time bee venom protein (honey bee) Allergy Mild Verified 11/19/23 08:59 latex Allergy Verified 11/19/23 08:59 Exam Constitutional Documenting provider has reviewed patient's vital signs: yes Common normals: no apparent distress, oriented x3, healthy appearing, alert and well nourished General appearance: cooperative [facility] Common normals: normocephalic, hearing grossly normal bilaterally and moist oral mucous membranes Head and scalp: normocephalic Eye Common normals: PERRL Pupil: PERRL Neck & C-Spine Common normals: full ROM General: normal visual inspection Chest Common normals: inspection of chest normal Respiratory Common normals: normal respiratory effort, no retractions and no use of accessory muscles Back & Pelvis Lumbar spine/lower back: ROM limited, pain with ROM and straight leg raise negative bilaterally Other: positive facet loading tenderness over bilateral L1-2 L2-3 facets Extremity Common normals: normal to inspection and full ROM Neuro Common normals: oriented x3, CN's II-XII intact bilaterally, moves all extremities, no focal motor deficits, no sensory deficits noted and deep tendon reflexes 2+ bilaterally Sensorium/orientation: alert Motor exam: strength 5/5 throughout and no movement abnormalities noted Psych Common normals: mental status grossly normal, thought process normal, cooperative, affect normal, speech normal and activity/motor behavior normal Speech: normal speech Thought process: normal thought process Results Additional Findings Additional findings: If on a controlled substance or opioids, I have checked an [place] report on this patient and there are no aberrancies noted in the prescribing history.??If on a controlled substance or opioid a drug screen was completed and reviewed within the last year, and if there has not been a drug screen completed we ordered one today to monitor higher risk, state monitored pain medication use. As part of providing excellent, safe, comprehensive care, the following was completed at our patient's visit: 1. A medication reconciliation and review to ensure accurate knowledge of current/active medications, including asking our patients to inform us about any ykac-bbx-membgrb medications or herbal remedies/nutritional supplements/alternative remedies. 2. A review to specifically ensure our patients have had annual screening for screening for depression, screening for tobacco use, and screening for unhealthy alcohol use. For concerning screenings had a discussion with the patient, provided patient education, and recommended follow-up with primary care provider when appropriate. If patient noted with a risk of falling, they received education on strength, gait, and balance training to prevent future risk of falling. Assessment and Plan Assessment and Plan (1) Lumbar spondylosis: (2) Cervical spinal stenosis: (3) Cervical radiculopathy: (4) Carpal tunnel syndrome of left wrist: (5) Muscle spasm: Plan bilateral L1-2 L2-3 facet medial branch block x2 under fluoroscopy working towards thermal RFA, risks vs benefits reviewed. all questions answered. continue current medications f/u after each injection
== END 2024-04-09 10:15 | disposition home or self-care (01) ==
LOC: PM 10:14
PROVIDERS: PCP Nurse Practitioner; Visit Provider Nurse Practitioner
DX: M47.816 Spondylosis without myelopathy or radiculopathy, lumbar region (principal); M48.02 Spinal stenosis, cervical region; M54.12 Radiculopathy, cervical region; G56.02 Carpal tunnel syndrome, left upper limb; M62.838 Other muscle spasm
CPT/HCPCS: G0463

== ENCOUNTER 2024-04-10 07:11 | Outpatient (OUT) | payer MEDICARE, MEDICAID, SELFPAY ==
--- OUTSIDE RECORDS SUMMARY | 2024-04-10 07:15 | XMS_ITS | CCD ---
[facility] Care Team Providers Care Author'S Agent Name Role Phone FELISA, CARMEN CARMEN J Referring UnavailTarsha Mccrary Attending Unavailable AICHHOLZ, DIRECTORY OPERATOR CARMEN Consulting Unavailable AICHHOLZ, DIRECTORY OPERATOR CARMEN Primary Care Unavailable AICHHOLZ, DIRECTORY OPERATOR CARMEN Admitting Unavailable AICHHOLZ, DIRECTORY OPERATOR CARMEN Attending Unavailable GALO ., DR HANY Holder Admitting Unavailable GALO ., DR HANY Holder Attending Unavailable AICHHOLZ, DIRECTORY OPERATOR CARMEN Primary Care Unavailable JEFFERSON ., STACY Consulting Unavailable JEFFERSON ., STACY Consulting Unavailable GALO ., DR HANY Holder Admitting Unavailable GALO ., DR HANY Holder Attending Unavailable AICHHOLZ, DIRECTORY OPERATOR CARMEN Primary Care Unavailable JEFFERSON ., STACY Admitting Unavailable JEFFERSON ., STACY Attending Unavailable AICHHOLZ, DIRECTORY OPERATOR CARMEN Primary Care Unavailable WEST, DR JARETT Long Consulting Unavailable JEFFERSON ., STACY Consulting Unavailable AICHHOLZ, DIRECTORY OPERATOR CARMEN Primary Care Unavailable AICHHOLZ, DIRECTORY OPERATOR CARMEN Admitting Unavailable AICHHOLZ, DIRECTORY OPERATOR CARMEN Attending Unavailable AICHHOLZ, DIRECTORY OPERATOR CARMEN Consulting Unavailable ALBERTO REDMAN Consulting Unavailable JEFFERSON ., STACY Consulting Unavailable GALO ., DR HANY Holder Admitting Unavailable GALO ., DR HANY Holder Attending Unavailable AICHHOLZ, DIRECTORY OPERATOR CARMEN Primary Care Unavailable JEFFERSON ., STACY Consulting Unavailable GALO ., DR HANY Holder Admitting Unavailable GALO ., DR HANY Holder Attending Unavailable AICHHOLZ, DIRECTORY OPERATOR CARMEN Primary Care Unavailable AICHHOLZ, DIRECTORY OPERATOR CARMEN Consulting Unavailable AICHHOLZ, DIRECTORY OPERATOR CARMEN Primary Care Unavailable AICHHOLZ, DIRECTORY OPERATOR CARMEN Admitting Unavailable AICHHOLZ, DIRECTORY OPERATOR CARMEN Attending Unavailable AICHHOLZ, DIRECTORY OPERATOR CARMEN Admitting Unavailable AICHHOLZ, DIRECTORY OPERATOR CARMEN Primary Care Unavailable AICHHOLZ, DIRECTORY OPERATOR CARMEN Attending Unavailable AICHHOLZ, DIRECTORY OPERATOR CARMEN Consulting Unavailable AICHHOLZ, DIRECTORY OPERATOR CARMEN Consulting Unavailable AICHHOLZ, DIRECTORY OPERATOR CARMEN Primary Care Unavailable AICHHOLZ, DIRECTORY OPERATOR CARMEN Attending Unavailable AICHHOLZ, DIRECTORY OPERATOR CARMEN Admitting Unavailable LOWE, DAVID Admitting Unavailable LOWE, DAVID Attending Unavailable AICHHOLZ, DIRECTORY OPERATOR CARMEN Primary Care Unavailable DR NOEMÍ MORRISON Consulting Unavailable LOWE, DAVID Consulting Unavailable AICHHOLZ, DIRECTORY OPERATOR CARMEN Primary Care Unavailable AICHHOLZ, DIRECTORY OPERATOR CARMEN Attending Unavailable AICHHOLZ, DIRECTORY OPERATOR CARMEN Consulting Unavailable AICHHOLZ, DIRECTORY OPERATOR CARMEN Admitting Unavailable AICHHOLZ, DIRECTORY OPERATOR CARMEN Consulting Unavailable AICHHOLZ, DIRECTORY OPERATOR CARMEN Primary Care Unavailable AICHHOLZ, DIRECTORY OPERATOR CARMEN Attending Unavailable AICHHOLZ, DIRECTORY OPERATOR CARMEN Admitting Unavailable JARETT JARVIS Unavailable JESSE, APOORVA Admitting Unavailable JESSE, APOORVA Attending Unavailable AICHHOLZ, DIRECTORY OPERATOR CARMEN Primary Care Unavailable JESSE, APOORVA Consulting Unavailable LAKSHMIPATHY ., NARENDRANATH Admitting Letty vailable LAKSHMIPATHY ., NARENDRANATH Attending Letty vailable AICHHOLZ, DIRECTORY OPERATOR CARMEN Primary Care Unavailable COURTNEY STERLING Consulting Unavailable DR JARETT GARCAÍ V Consulting Unavailable AICHHOLZ, DIRECTORY OPERATOR CARMEN Primary Care Unavailable AICHHOLZ, DIRECTORY OPERATOR CARMEN Admitting Unavailable AICHHOLZ, DIRECTORY OPERATOR CARMEN Attending Unavailable AICHHOLZ, DIRECTORY OPERATOR CARMEN Consulting Unavailable AICHHOLZ, DIRECTORY OPERATOR CARMEN Consulting Unavailable AICHHOLZ, DIRECTORY OPERATOR CARMEN Admitting Unavailable AICHHOLZ, DIRECTORY OPERATOR CARMEN Attending Unavailable AICHHOLZ, DIRECTORY OPERATOR CARMEN Primary Care Unavailable ILYA, NERI Admitting Unavailable ILYA, NERI Attending Unavailable AICHHOLZ, DIRECTORY OPERATOR CARMEN Primary Care Unavailable ILYA, NERI Consulting Unavailable DANIELLE KWONG Consulting Unavailable AICHHOLZ, DIRECTORY OPERATOR CARMEN Consulting Unavailable AICHHOLZ, DIRECTORY OPERATOR CARMEN Primary Care Unavailable AICHHOLZ, DIRECTORY OPERATOR CARMEN Admitting Unavailable AICHHOLZ, DIRECTORY OPERATOR CARMEN Attending Unavailable DR NOEMÍ MORRISON Consulting Unavailable STACY MABRY Consulting Unavailable KIARRA ., DR HANY Holder Admitting Unavailable KIARRA ., DR HANY Holder Attending Unavailable AICHHOLZ, DIRECTORY OPERATOR CARMEN Primary Care Unavailable GALO ., DR HANY Holder Consulting Unavailable KIARRA ., DR HANY Holder Admitting Unavailable GALO ., DR HANY Holder Attending Unavailable AICHHOLZ, DIRECTORY OPERATOR CARMEN Primary Care Unavailable KARINA ., ELIAS Admitting Unavailable KARINA ., ELIAS Attending Unavailable AICHHOLZ, DIRECTORY OPERATOR CARMEN Primary Care Unavailable KARINA ., ELIAS Consulting Unavailable CATHY DE PAZ Consulting Unavaila ble AICHHOLZ, DIRECTORY OPERATOR CARMEN Primary Care Unavailable WEST, DR JARETT Long Consulting Unavailable AICHHOLZ, DIRECTORY OPERATOR CARMEN Admitting Unavailable AICHHOLZ, DIRECTORY OPERATOR CARMEN Attending Unavailable AICHHOLZ, DIRECTORY OPERATOR CARMEN Consulting Unavailable HALKER ., COURTNEY Consulting Unavailable LAKSHMIPATHY ., NARENDRANATH Admitting Letty vailable LAKSHMIPATHY ., NARENDRANATH Attending Letty vailable AICHHOLZ, DIRECTORY OPERATOR CARMEN Primary Care Unavailable Asaad, Imad Unavailable NON STAFF Primary Care Provider UnavailMD Jhon Campbell Attending Provider NON STAFF Primary Care Provider UnavailMD Jemal Conteh Attending Provider [phone] Jemal Teague Unavailable NON STAFF Primary Care [...] sources) Latex Drug allergy (disorder) 6 Rash [facility] Repository (3 sources) venom-honey bee; Translations: [venom-honey bee] Allergy to substance 3 Anaphylaxis [facility] (1 source) Latex Drug allergy Unknown [employer] Other (1 source) Bee Sting Drug allergy Unknown [employer] Other (1 source) Latex Drug allergy (disorder) 3 [facility] Repository (1 source) bee venom protein (honey bee) Drug allergy (disorder) 3 [facility] Repository Medications Current Medications Medication Drug Class(es) Dates Sig (Normalized) Sig (Original) Albuterol (5 sources) beta2-Adrenergic Agonist Start: 03-11-2019 Albuterol Sulfate Active 2 PUFF INHALATION As Directed March 10, 2019 11:00pm Start: 03-11-2019 Albuterol Sulf ate Active 2 PUFF INHALATION As Directed March 11, 2019 12:00am Albuterol Active amylase 756733 unt / lipase 49175 unt / protease 70563 unt delayed release oral capsule (5 sources) Start: 04-18-2023 take 37168-34376 capsules by mouth three times daily Zhcahu-Kccfjlxe-Qzvetfr (Creon) 24,000-76,000 -120,000 unit capsule,delayed release(DR/EC) Active 1 CAP PO Three times daily April 17, 2023 11:00pm biotin 10 mg oral capsule (2 sources) Start: 04-18-2023 take 29840 ug by mouth once daily at bedtime Biotin Active 54603 MCG PO Daily at bedtime April 17, [...] April 17, 2023 11:00pm polyethylene glycol 3350 853733 mg / potassium chloride 2970 mg / sodium bicarbonate 6740 mg / sodium chloride 5860 mg / sodium sulfate 10778 mg powder for oral solution (3 sources) [...] 07-30-2022 Episodic Other aftercare (1 source) Other care home (current) drug therapy; 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 Attending Dr: Jemal Teague MD Copies to: Jemal Teague MD Ordering Provider: Jemal eTague MD Date of Service: 08/27/23 XR/XR cervical [...] Hill Jr., DKaileyOKailey08/27/2023 4:23 PM Dictation Location: [place] [address] Transcribed By: [facility] 08/27/231622 Dictated By: Andi Hill Jr, DO 08/27/231621 Signed By: 08/27/231622 [facility] Rafael 04-18-2023 L - -------- Specimen: [id number] Received: 04/19/23 Status: ANUM Castillo Num: [id number] Spec Type: Surgical Subm Dr: Jhon Medina MD Tissues: A Colon Biopsy (RANDOM COLON BX) Procedures: HE/2, Gross/Micro L4 -------- Age/ Patient Sex Location Account Attending Physician -------- Kalani Asencio/[facility] [id number] John Medina MD -------- SPEC NUM: [id number] RECD: 04/19/23 STATUS: ANUM CASTILLO NUM: [id number] LELE: 04/18/23- [facility] DR: Jhon Medina MD ENTERED: 04/19/23 [facility] DR: LUCY TYPE: Surgical DEPT: [...] microscopic examination confirms the diagnosis. CPT Codes 73476 -------- -------- Specimen: [id number] Received: 04/19/23 Status: ANUM Castillo Num: [id number] Spec Type: Surgical Subm Dr: Jhon Medina MD Tissues: A Colon Biopsy (RANDOM COLON BX) Procedures: DANY/Camilo Gross/Yolanda L4 -------- Patient: Kalani Asencio [id number] (Continued) -------- Signed (signature on file) Warren De La O MD 04/22/23 0573 Normal [facility] AMYLASEon 03-12-2023 Amylase [Catalytic activity/Vol] 42 U/L Normal 25-115 [facility] Comment on above: Performed By: #### T SH, LIPA, CMP, CHILANGO ####[facility] [address] [place], [place] [address]OaDr. Rakel Fraga CBC AUTO DIFFon 03-12-2023 BASO # 0.0 103/ul Normal 0.0-0.1 [facility] Comment on above: Performed By: #### U AMIC #### [facility] [address] [place] [address] [address] Rakel Fraga Basophils/100 WBC (Bld) 0.4 % Normal 0.2-2.0 [facility] Comment on above: Performed By: #### U AMIC #### [facility] [address] [place] [address] [address] Rakel Fraga EO # 0.8 103/ul Critically high 0.0-0.7 [facility] Comment on above: Performed By: #### U AMIC #### [facility] [address] [place] [address] [address] Rakel Fraga Eosinophils/100 WBC (Bld) 8.8 % Critically high 0.9-7.0 [facility] Comment on above: Performed By: #### U AMIC #### [facility] [address] [place] [address] [address] Rakel Fraga Erythrocyte distribution width (RBC) [Ratio] 13.0 % Normal 11.0-15.0 [facility] Comment on above: Performed By: #### U AMIC #### [facility] [address] [place] [address] [address] Rakel Fraga Hematocrit (Bld) [Volume fraction] 44.1 % Normal 42.0-54.0 [facility] Comment on above: Performed By: #### U AMIC #### [facility] [address] [place] [address] [address] Raekl Fraga Hemoglobin (Bld) [Mass/Vol] 14.2 g/dL Normal 14.0-18.0 [facility] Comment on above: Performed By: #### U AMIC #### [facility] [address] [place] [address] [address] Rakel Fraga IG # 0.02 10e3/ul Normal 0.00-0.03 [facility] Comment on above: Performed By: #### U AMIC #### [facility] [address] [place] [address] [address] Rakel Fraga IG % 0.2 % Normal 0.0-0.5 [facility] Comment on above: Performed By: #### U AMIC #### [facility] [address] [place] [address] [address] Rakel Fraga LYMPH # 1.9 103/ul Normal 1.2-3.8 [facility] Comment on above: Performed By: #### U AMIC #### [facility] [address] [place] [address] [address] Rakel Fraga Lymphocytes/100 WBC (Bld) 20.1 % Critically low 20.5-60.0 [facility] Comment on above: Performed By: #### U AMIC #### [facility] [address] [place] [address] [address] Rakel Fraga MANUAL DIFF REQ NO Normal [facility] Comment on above: Performed By: #### U AMIC #### [facility] [address] [place] [address] [address] Rakel Fraga MCH (RBC) [Entitic mass] 29.8 pg Normal 25.9-34.0 [facility] Comment on above: Performed By: #### U AMIC #### [facility] [address] [place] [address] [address] Rakel Fraga MCHC (RBC) [Mass/Vol] 32.2 g/dL Normal 29.9-35.2 [facility] Comment on above: Performed By: #### U AMIC #### [facility] [address] [place] [address] [address] Rakel Fraga MCV (RBC) [Entitic vol] 92.5 fL Normal 80.0-94.0 [facility] Comment on above: Performed By: #### U AMIC #### [facility] [address] [place] [address] [address] Rakel Fraga MONO # 0.5 103/ul Normal 0.3-0.8 [facility] Comment on above: Performed By: #### U AMIC #### [facility] [address] [place] [address] [address] Rakel Fraga Monocytes/100 WBC (Bld) 5.0 % Normal 1.7-12.0 [facility] Comment on above: Performed By: #### U AMIC #### [facility] [address] [place] [address] [address] Rakel Fraga NEUT # 6.0 103/ul Normal 1.4-6.5 [facility] Comment on above: Performed By: #### U AMIC #### [facility] [address] [place] [address] Dr. Rakel Fraga Neutrophils/100 WBC (Bld) 65.5 % Normal 43.0-75.0 [facility] Comment on above: Performed By: #### U AMIC #### [facility] [address] [place] [address] [address] Rakel Fraga Platelet mean volume (Bld) [Entitic vol] 9.4 fL Critically low 9.5-13.5 [facility] Comment on above: Performed By: #### U AMIC #### [facility] [address] [place] [address] [address] Rakel Fraga PLT 284 103/ul Normal 150-450 [facility] Comment on above: Performed By: #### U AMIC #### [facility] [address] [place] [address] [address] Rakel Fraga RBC 4.77 106/ul Normal 4.70-6.10 [facility] Comment on above: Performed By: #### U AMIC #### [facility] [address] [place] [address] [address] Rakel Fraga WBC 9.2 103/ul Normal 4.0-11.0 [facility] Comment on above: Performed By: #### U AMIC #### [facility] [address] [place] [address] DrKailey Fraga LIPASEon 03-12-2023 Lipase [Catalytic activity/Vol] 76.0 U/L Normal 73.0-393.0 [facility] Comment on above: Performed By: #### T SH, LIPA, CMP, CHILANGO ####[facility] [address] [place] [address]Dr. Rakel Fraga PROF 14(COMP METB)on 023 Albumin [Mass/Vol] 3.4 g/dL Normal 3.4-5.0 [facility] Comment on above: Performed By: #### T SH, LIPA, CMP, CHILANGO ####[facility] [address] [place] [address]DrKailey Fraga Albumin/Globulin [Mass ratio] 0.8 {ratio} Normal [facility] Comment on above: Performed By: #### T SH, LIPA, CMP, CHILANGO ####[facility] [address] [place] [address]Dr. Rakel Fraga ALP [Catalytic activity/Vol] 159 U/L Critically high 46-116 [facility] Comment on above: Performed By: #### T SH, LIPA, CMP, CHILANGO ####[facility] [address] [place] [address]Dr. Rakel Fraga ALT [Catalytic activity/Vol] 24 U/L Normal 16-63 [facility] Comment on above: Performed By: #### T SH, LIPA, CMP, CHILANGO ####[facility] [address] [place] [address]Dr. Rakel Fraga Anion gap [Moles/Vol] 12.2 mmol/L Normal [facility] Comment on above: Performed By: #### T SH, LIPA, CMP, CHILANGO ####[facility] [address] [place] [address]Dr. Rakel Fraga AST [Catalytic activity/Vol] 16 U/L Normal 15-37 [facility] Comment on above: Performed By: #### T SH, LIPA, CMP, CHILANGO ####[facility] [address] [place] [address]Dr. Rakel Fraga Bilirubin [Mass/Vol] 0.2 mg/dL Normal 0.2-1.0 [facility] Comment on above: Performed By: #### T SH, LIPA, CMP, CHILANGO ####[facility] [address] [place] [address]Dr. Rakel Fraga Calcium [Mass/Vol] 8.9 mg/dL Normal 8.5-10.1 [facility] Comment on above: Performed By: #### T SH, LIPA, CMP, CHILANGO ####[facility] [address] [place] [address]Dr. Rakel rFaga Chloride [Moles/Vol] 105 mmol/L Normal 98-107 [facility] Comment on above: Performed By: #### T SH, LIPA, CMP, CHILANGO ####[facility] [address] [place], [place] [address]Dr. Rakel Fraga CO2 [Moles/Vol] 28.7 mmol/L Normal 21.0-32.0 [facility] Comment on above: Performed By: #### T SH, LIPA, CMP, CHILANGO ####[facility] [address] [place], [place] [address]Dr. Rakel Fraga Creatinine [Mass/Vol] 1.27 mg/dL Normal 0.70-1.30 [facility] Comment on above: Performed By: #### T SH, LIPA, CMP, CHILANGO ####[facility] [address] [place], [place] [address]Dr. Rakel Fraga EGFR-AF MAURITIAN >60 Normal >=60 [facility] Comment on above: Performed By: #### T SH, LIPA, CMP, CHILANGO ####[facility] [address] [place], [place] [address]Dr. Rakel Fraga EGFR-NON AF MAURITIAN 59 mL/min/1.73m2 Critically low >=60 [facility] Comment on above: Performed By: #### T SH, LIPA, CMP, CHILANGO ####[facility] [address] [place] [address]Dr. Rakel Fraga Globulin (S) [Mass/Vol] 4.4 g/dL Normal [facility] Comment on above: Performed By: #### T SH, LIPA, CMP, CHILANGO ####[facility] [address] [place] [address]Dr. Rakel Fraga Glucose [Mass/Vol] 95 mg/dL Normal 74-106 [facility] Comment on above: Performed By: #### T SH, LIPA, CMP, CHILANGO ####[facility] [address] [place] [address]Dr. Rakel Fraga Potassium [Moles/Vol] 3.9 mmol/L Normal 3.5-5.1 [facility] Comment on above: Performed By: #### T SH, LIPA, CMP, CHILANGO ####[facility] [address] [place], [place] [address]Dr. Rakel Fraga Protein [Mass/Vol] 7.8 g/dL Normal 6.4-8.2 [facility] Comment on above: Performed By: #### T SH, LIPA, CMP, CHILANGO ####[facility] [address] [place], [place] [address]Dr. Rakel Fraga Sodium [Moles/Vol] 142 mmol/L Normal 136-145 [facility] Comment on above: Performed By: #### T SH, LIPA, CMP, CHILANGO ####[facility] [address] [place], [place] [address]Dr. Rakel Fraga Urea nitrogen [Mass/Vol] 14.0 mg/dL Normal 7.0-18.0 [facility] Comment on above: Performed By: #### T SH, LIPA, CMP, CHILANGO ####[facility] [address] [place], [place] [address]Dr. Rakel Fraga Urea nitrogen/Creatinine [Mass ratio] 11.0 mg/mg Normal [facility] Comment on above: Performed By: #### T SH, LIPA, CMP, CHILANGO ####[facility] [address] [place] [address]Dr. Rakel Fraga SED RATE [facility] 2022 SED RATE 17 mm/hr Normal <=20 [facility] Comment on above: Performed By: #### U AMIC #### [facility] [address] [place] [address] Dr. Rakel Fraga TSHon 03-12-2023 TSH 0.793 uIU/mL Normal 0.358-3.740 [facility] Comment on above: Performed By: #### T SH, LIPA, CMP, CHILANGO ####[facility] [address] [place] [address]Dr. Rakel Fraga UA RANDOM W/MICROSCOPICon BACTERIA NONE SEEN Normal NONE SEEN [facility] Comment on above: Performed By: #### B MP #### [facility] [address] [place] [address] Dr. Rakel Fraga Bilirubin Ql (U) Negative Normal NEGATIVE [facility] Comment on above: Performed By: #### B MP #### [facility] [address] [place] [address] Dr. Rakel Fraga CAST NONE SEEN Normal NONE SEEN [facility] Comment on above: Performed By: #### B MP #### [facility] [address] [place] [address] Dr. Rakel Fraga Clarity (U) CLEAR Normal CLEAR [facility] Comment on above: Performed By: #### B MP #### [facility] [address] [place] [address] Dr. Rakel Fraga Color (U) LT. YELLOW Normal YELLOW [facility] Comment on above: Performed By: #### B MP #### [facility] [address] [place] [address] Dr. Rakel Fraga Crystals LM Nom (Urine sed) NONE SEEN Normal NONE SEEN [facility] Comment on above: Performed By: #### B MP #### [facility] [address] [place] [address] Dr. Rakel Fraga Epithelial cells LM Ql (Urine sed) NONE SEEN Normal NONE SEEN /RARE [facility] Comment on above: Performed By: #### B MP #### [facility] [address] [place] [address] Dr. Rakel Fraga Glucose Ql (U) Negative Normal NEGATIVE [facility] Comment on above: Performed By: #### B MP #### [facility] [address] [place] [address] Dr. Rakel Fraga Hemoglobin Ql (U) Negative Normal NEGATIVE [facility] Comment on above: Performed By: #### B MP #### [facility] [address] [place] [address] [address] Rakel Fraga Ketones Ql (U) Negative Normal NEGATIVE [facility] Comment on above: Performed By: #### B MP #### [facility] [address] [place] [address] [address] Rakel Fraga LEUKOCYTES Negative Normal NEGATIVE [facility] Comment on above: Performed By: #### B MP #### [facility] [address] [place] [address] Dr. Rakel Fraga MUCOUS NONE SEEN Normal NONE SEEN [facility] Comment on above: Performed By: #### B MP #### [facility] [address] [place] [address] Dr. Rakel Fraga Nitrite Ql (U) Negative Normal NEGATIVE [facility] Comment on above: Performed By: #### B MP #### [facility] [address] [place] [address] Dr. Rakel Fraga pH (U) 5.5 [pH] Normal 5-9 [facility] Comment on above: Performed By: #### B MP #### [facility] [address] [place] [address] Dr. Rakel Fraga RBC 0-2 Normal 0-2 [facility] Comment on above: Performed By: #### B MP #### [facility] [address] [place] [address] Dr. Rakel Fraga SPEC GRAVITY >=1.030 Abnormal 1.005-<=1.025 [facility] Comment on above: Performed By: #### B MP #### [facility] [address] [place] [address] Dr. Rakel Fraga UA PROTEIN Negative Normal NEGATIVE/ TRACE [facility] Comment on above: Performed By: #### B MP #### [facility] [address] [place] [address] Dr. Rakel Fraga Urobilinogen Qn (U) 0.2 {Arnoldo'U}/dL Normal 0.2 - 1. 0 [facility] Comment on above: Performed By: #### B MP #### [facility] [address] [place] [address] Dr. Rakel Fraga WBC NONE SEEN Normal NONE SEEN [facility] Comment on above: Performed By: #### B MP #### [facility] [address] [place] [address] Dr. Rakel Fraga XR KUB 1 VIEWon 03-12-2023 XR KUB 1 VIEW EXAMINATION: XR KUB 1 VIEW HISTORY: Abdominal pain COMPARISON: 02/23/2020 FINDINGS: BOWEL GAS PATTERN: No abnormal dilation or deviation. CALCIFICATIONS: None significant. OTHER: Negative. No abnormal gaseous collections. IMPRESSION: Normal bowel gas pattern Electronically authenticated by: JARETT GARCÍA Date: 2023-03-12 14:27 Normal [facility] Covid-19 PCR (CVDTB)on SARS-CoV-2 (COVID-19) RNA SHADIA+probe Ql (Unsp spec) Not detected Normal NOT DETECTED [facility] Comment on above: Result Comment: This test is not yet approved or cleared by the [place] FDA. When there are no FDA-approved or cleared tests available, and other criteria are met, FDA can make tests available under an emergency access mechanism called an Emergency Use Authorization (EUA). The EUA for this test is supported by the Catastrophe Claims Supervisor of Health and Human Service's (HHS's) declaration [...] SARS-CoV-2. Performed By: #### B MP #### [facility] [address] [place] [address] Dr. Rakel Fraga INFLUENZA A AND B AGon 01-14 INFLUANEGH SEE BELOW Normal [facility] Comment on above: Result Comment: Nega tive for Flu A protein angiten. Infection due to Flu A cannot be ruled out. Flu A angiten in the sample may be below the detection limit of the test. Performed By: #### I NFLUAB #### [facility] [address] [place] [address] Dr. Rakel Fraga INFLUBNEGH SEE BELOW Normal [facility] Comment on above: Result Comment: Nega tive for Flu B protein antigen. Infection due to Flu B cannot be ruled out. Flu B antigen in the sample may be below the detection limit of the test. Performed By: #### I NFLUAB #### [facility] [address] [place] [address] Dr. Rakel Fraga INFLUENZA A AG Negative Normal NEGATIVE SEE COMMENT [facility] Comment on above: Performed By: #### I NFLUAB #### [facility] [address] [place] [address] Dr. Rakel Fraga INFLUENZA B AG Negative Normal NEGATIVE SEE COMMENT [facility] Comment on above: Performed By: #### I NFLUAB #### [facility] [address] [place] [address] Dr. Rakel Fraga SYMPTOMATIC COVID-19 ANTIGEN on 01-14-2023 EUA Statement SEE BELOW Normal [facility] Comment on above: Result Comment: This [...] sooner. Performed By: #### U AMIC #### [facility] [address] [place] [address] Dr. Rakel Fraga SARS-CoV-2 (COVID-19) RNA SHADIA+probe Ql (Unsp spec) Negative Normal NEGATIVE [facility] Comment on above: Performed By: #### U AMIC #### [facility] [address] [place] [address] Dr. Rakel Fraga PANCREATIC ELASTASE FECALon 01-09-2023 Pancreatic Elastase, Fecal 90 ug Elast./g Critically low >200 [facility] Comment on above: Result Comment: Re sults verified by repeat testing Severe Pancreatic Insufficiency: <100 Moderate Pancreatic Insufficiency: 100 - 200 Normal: >200 Performed By: #### B MP #### [facility] [address] [place] [address] Dr. Rakel Fraga CBC AUTO DIFFon 01-07-2023 BASO # 0.0 103/ul Normal 0.0-0.1 [facility] Comment on above: Performed By: #### C BC #### [facility] [address] [place] [address] Dr. Rakel Fraga Basophils/100 WBC (Bld) 0.3 % Normal 0.2-2.0 [facility] Comment on above: Performed By: #### C BC #### [facility] [address] [place] [address] Dr. Rakel Fraga EO # 0.7 103/ul Normal 0.0-0.7 [facility] Comment on above: Performed By: #### C BC #### [facility] [address] [place] [address] Dr. Rakel Fraga Eosinophils/100 WBC (Bld) 11.6 % Critically high 0.9-7.0 [facility] Comment on above: Performed By: #### C BC #### [facility] [address] [place] [address] Dr. Rakel Fraga Erythrocyte distribution width (RBC) [Ratio] 13.5 % Normal 11.0-15.0 [facility] Comment on above: Performed By: #### C BC #### [facility] [address] [place] [address] Dr. Rakel Fraga Hematocrit (Bld) [Volume fraction] 44.3 % Normal 42.0-54.0 [facility] Comment on above: Performed By: #### C BC #### [facility] [address] [place] [address] Dr. Rakel Fraga Hemoglobin (Bld) [Mass/Vol] 14.4 g/dL Normal 14.0-18.0 [facility] Comment on above: Performed By: #### C BC #### [facility] [address] [place] [address] Dr. Rakel Fraga IG # 0.01 10e3/ul Normal 0.00-0.03 [facility] Comment on above: Performed By: #### C BC #### [facility] [address] [place] [address] Dr. Rakel Fraga IG % 0.2 % Normal 0.0-0.5 [facility] Comment on above: Performed By: #### C BC #### [facility] [address] [place] [address] Dr. Rakel Fraga LYMPH # 2.0 103/ul Normal 1.2-3.8 [facility] Comment on above: Performed By: #### C BC #### [facility] [address] [place] [address] Dr. Rakel Fraga Lymphocytes/100 WBC (Bld) 32.5 % Normal 20.5-60.0 [facility] Comment on above: Performed By: #### C BC #### [facility] [address] [place] [address] Dr. Rakel Fraga MANUAL DIFF REQ NO Normal [facility] Comment on above: Performed By: #### C BC #### [facility] [address] [place] [address] Dr. Rakel Fraga MCH (RBC) [Entitic mass] 29.8 pg Normal 25.9-34.0 [facility] Comment on above: Performed By: #### C BC #### [facility] [address] [address] [address] Rakel Fraga MCHC (RBC) [Mass/Vol] 32.5 g/dL Normal 29.9-35.2 [facility] Comment on above: Performed By: #### C BC #### [facility] [address] [address] [address] Rakel Fraga MCV (RBC) [Entitic vol] 91.5 fL Normal 80.0-94.0 [facility] Comment on above: Performed By: #### C BC #### [facility] [address] [address] [address] Rakel Fraga MONO # 0.4 103/ul Normal 0.3-0.8 [facility] Comment on above: Performed By: #### C BC #### [facility] [address] [place] [address] Dr. Rakel Fraga Monocytes/100 WBC (Bld) 7.1 % Normal 1.7-12.0 [facility] Comment on above: Performed By: #### C BC #### [facility] [address] [place] [address] Dr. Rakel Fraga NEUT # 2.9 103/ul Normal 1.4-6.5 [facility] Comment on above: Performed By: #### C BC #### [facility] [address] [place] [address] Dr. Rakel Fraga Neutrophils/100 WBC (Bld) 48.3 % Normal 43.0-75.0 [facility] Comment on above: Performed By: #### C BC #### [facility] [address] [place] [address] Dr. Rakel Fraga Platelet mean volume (Bld) [Entitic vol] 9.6 fL Normal 9.5-13.5 [facility] Comment on above: Performed By: #### C BC #### [facility] [address] [place] [address] Dr. Rakel Fraga PLT 222 103/ul Normal 150-450 [facility] Comment on above: Performed By: #### C BC #### [facility] [address] [address] [address] Rakel Fraga RBC 4.84 106/ul Normal 4.70-6.10 [facility] Comment on above: Performed By: #### C BC #### [facility] [address] [address] [address] Rakel Fraga WBC 6.0 103/ul Normal 4.0-11.0 [facility] Comment on above: Performed By: #### C BC #### [facility] [address] [address] [address] Rakel Fraga PROF 14(COMP METB)on 023 Albumin [Mass/Vol] 3.6 g/dL Normal 3.4-5.0 [facility] Comment on above: Performed By: #### C MP ####[facility] [address] [address]Dr. Rakel Fraga Albumin/Globulin [Mass ratio] 1.0 {ratio} Normal [facility] Comment on above: Performed By: #### C MP ####[facility] [address] [address]Dr. Rakel Fraga ALP [Catalytic activity/Vol] 140 U/L Critically high 46-116 [facility] Comment on above: Performed By: #### C MP ####[facility] [address] [address]Dr. Rakel Fraga ALT [Catalytic activity/Vol] 23 U/L Normal 16-63 [facility] Comment on above: Performed By: #### C MP ####[facility] [address] [address]Dr. Rakel Fraga Anion gap [Moles/Vol] 12.4 mmol/L Normal [facility] Comment on above: Performed By: #### C MP ####[facility] [address] [address]Dr. Rakel Fraga AST [Catalytic activity/Vol] 19 U/L Normal 15-37 [facility] Comment on above: Performed By: #### C MP ####[facility] [address] [id number]. Rakel Fraga Bilirubin [Mass/Vol] 0.2 mg/dL Normal 0.2-1.0 [facility] Comment on above: Performed By: #### C MP ####[facility] [address] [id number]. Rakel Fraga Calcium [Mass/Vol] 8.9 mg/dL Normal 8.5-10.1 [facility] Comment on above: Performed By: #### C MP ####[facility] [address] [id number]. Rakel Fraga Chloride [Moles/Vol] 111 mmol/L Critically high 98-107 [facility] Comment on above: Performed By: #### C MP ####[facility] [address] [address]Dr. Rakel Fraga CO2 [Moles/Vol] 27.8 mmol/L Normal 21.0-32.0 [facility] Comment on above: Performed By: #### C MP ####[facility] [address] [place], [place] [address]Dr. Rakel Fraga Creatinine [Mass/Vol] 1.26 mg/dL Normal 0.70-1.30 [facility] Comment on above: Performed By: #### C MP ####[facility] [address] [id number]. Rakel Fraga EGFR-AF MAURITIAN >60 Normal >=60 [facility] Comment on above: Performed By: #### C MP ####[facility] [address] [id number]. Rakel Flakito EGFR-NON AF MAURITIAN 60 mL/min/1.73m2 Normal >=60 [facility] Comment on above: Performed By: #### C MP ####[facility] [address] [place], [place] [address]Dr. Rakel Fraga Globulin (S) [Mass/Vol] 3.6 g/dL Normal [facility] Comment on above: Performed By: #### C MP ####[facility] [address] [place], [place] [address]Dr. Rakel Fraga Glucose [Mass/Vol] 118 mg/dL Critically high 74-106 [facility] Comment on above: Performed By: #### C MP ####[facility] [address] [address]Dr. Rakel Fraga Potassium [Moles/Vol] 4.2 mmol/L Normal 3.5-5.1 [facility] Comment on above: Performed By: #### C MP ####[facility] [address] [address]Dr. Rakel Fraga Protein [Mass/Vol] 7.2 g/dL Normal 6.4-8.2 [facility] Comment on above: Performed By: #### C MP ####[facility] [address] [address]Dr. Rakel Fraga Sodium [Moles/Vol] 147 mmol/L Critically high 136-145 [facility] Comment on above: Performed By: #### C MP ####[facility] [address] [address]Dr. Rakel Fraga Urea nitrogen [Mass/Vol] 17.0 mg/dL Normal 7.0-18.0 [facility] Comment on above: Performed By: #### C MP ####[facility] [address] [address]Dr. Rakel Fraga Urea nitrogen/Creatinine [Mass ratio] 13.5 mg/mg Normal [facility] Comment on above: Performed By: #### C MP ####[facility] [address] [address]Dr. Rakel Fraga SED RATE WESTERGRENon 2022 SED RATE 13 mm/hr Normal <=20 [facility] Comment on above: Performed By: #### S EDR ####[facility] [address] [place], [place] [address]Dr. Rakel Fraga STOOL CULTUREon 01-06-2023 Campylobacter Culture Final report Normal [facility] Comment on above: Performed By: #### C XSTOOL #### [facility] [address] [address] [address] Rakel Fraga E coli Shiga Toxin EIA Negative Normal Negative [facility] Comment on above: Performed By: #### C XSTOOL #### [facility] [address] [place] [address] Dr. Rakel Fraga Result 1 Comment Normal [facility] Comment on above: Result Comment: No S almonella or Shigella recovered. Performed By: #### C XSTOOL #### [facility] [address] [place] [address] Dr. Rakel Fraga Result Comment: No C ampylobacter species isolated. Salmonella/Shigella Screen Final report Normal [facility] Comment on above: Performed By: #### C XSTOOL #### [facility] [address] [place] [address] Dr. Rakel Fraga OVA AND PARASITE EXAMINATION on 01-04-2023 Ova + Parasite Exam Final report Normal [facility] Comment on above: Result Comment: Thes e results were obtained using wet preparation(s) and trichrome stained smear. This test does not include testing for Cryptosporidium parvum, Cyclospora, or Microsporidia. Performed By: #### B MP #### [facility] [address] [place] [address] Dr. Rakel Fraga Result 1 Comment Normal [facility] Comment on above: Result Comment: No o va, cysts, or parasites seen. . One negative specimen does not rule out the possibility of a parasitic infection. Performed By: #### B MP #### [facility] [address] [place] [address] Dr. Rakel Fraga C. DIFF PCRon 01-02-2023 C. DIFFICILE PCR Negative Normal NEGATIVE [facility] Comment on above: Performed By: #### U AMIC #### [facility] [address] [place] [address] Dr. Rakel Fraga OCC BLD IMMUNO SCREENon 12-13 OCCULT BLOOD Negative Normal NEGATIVE [facility] Comment on above: Performed By: #### U AMIC #### [facility] [address] [place] [address] Dr. Rakel Fraga LEVETIRACETAM, SERUM OR PLAS MAon 11-09-2022 Levetiracetam, S 20.0 ug/mL Normal 10.0-40.0 [facility] Comment on above: Performed By: #### U AMIC #### [facility] [address] [place] [address] Dr. Rakel Fraga ZONISAMIDEon 11-09-2022 Zonisamide 23.3 ug/mL Normal 10.0-40.0 [facility] Comment on above: Result Comment: Dete ction Limit = 2.0 Performed By: #### B MP #### [facility] [address] [place] [address] Dr. Rakel Fraga CBC AUTO DIFFon 11-07-2022 BASO # 0.1 103/ul Normal 0.0-0.1 [facility] Comment on above: Performed By: #### C BC #### [facility] [address] [place] [address] Dr. Rakel Fraga Basophils/100 WBC (Bld) 0.5 % Normal 0.2-2.0 [facility] Comment on above: Performed By: #### C BC #### [facility] [address] [place] [address] Dr. Rakel Fraga EO # 1.9 103/ul Critically high 0.0-0.7 [facility] Comment on above: Performed By: #### C BC #### [facility] [address] [place] [address] Dr. Rakel Fraga Eosinophils/100 WBC (Bld) 17.1 % Critically high 0.9-7.0 [facility] Comment on above: Performed By: #### C BC #### [facility] [address] [place] [address] Dr. Rakel Fraga Erythrocyte distribution width (RBC) [Ratio] 12.9 % Normal 11.0-15.0 [facility] Comment on above: Performed By: #### C BC #### [facility] [address] [place] [address] Dr. Rakel Fraga Hematocrit (Bld) [Volume fraction] 44.6 % Normal 42.0-54.0 [facility] Comment on above: Performed By: #### C BC #### [facility] [address] [address] [address] Rakel Fraga Hemoglobin (Bld) [Mass/Vol] 13.8 g/dL Critically low 14.0-18.0 [facility] Comment on above: Performed By: #### C BC #### [facility] [address] [address] [address] Rakel Fraga IG # 0.03 10e3/ul Normal 0.00-0.03 [facility] Comment on above: Performed By: #### C BC #### [facility] [address] [place] [address] Dr. Rakel Fraga IG % 0.3 % Normal 0.0-0.5 [facility] Comment on above: Performed By: #### C BC #### [facility] [address] [place] [address] Dr. Rakel Fraga LYMPH # 2.1 103/ul Normal 1.2-3.8 [facility] Comment on above: Performed By: #### C BC #### [facility] [address] [place] [address] Dr. Rakel Fraga Lymphocytes/100 WBC (Bld) 18.7 % Critically low 20.5-60.0 [facility] Comment on above: Performed By: #### C BC #### [facility] [address] [place] [address] Dr. Rakel Fraga MANUAL DIFF REQ NO Normal [facility] Comment on above: Performed By: #### C BC #### [facility] [address] [place] [address] Dr. Rakel Fraga MCH (RBC) [Entitic mass] 29.3 pg Normal 25.9-34.0 [facility] Comment on above: Performed By: #### C BC #### [facility] [address] [place] [address] Dr. Rakel Fraga MCHC (RBC) [Mass/Vol] 30.9 g/dL Normal 29.9-35.2 [facility] Comment on above: Performed By: #### C BC #### [facility] [address] [address] [address] Rakel Fraga MCV (RBC) [Entitic vol] 94.7 fL Critically high 80.0-94.0 [facility] Comment on above: Performed By: #### C BC #### [facility] [address] [address] [address] Rakel Fraga MONO # 0.6 103/ul Normal 0.3-0.8 [facility] Comment on above: Performed By: #### C BC #### [facility] [address] [address] [address] Rakel Fraga Monocytes/100 WBC (Bld) 5.4 % Normal 1.7-12.0 [facility] Comment on above: Performed By: #### C BC #### [facility] [address] [place] [address] Dr. Rakel Fraga NEUT # 6.4 103/ul Normal 1.4-6.5 [facility] Comment on above: Performed By: #### C BC #### [facility] [address] [place] [address] Dr. Rakel Fraga Neutrophils/100 WBC (Bld) 58.0 % Normal 43.0-75.0 [facility] Comment on above: Performed By: #### C BC #### [facility] [address] [place] [address] Dr. Rakel Fraga Platelet mean volume (Bld) [Entitic vol] 9.2 fL Critically low 9.5-13.5 [facility] Comment on above: Performed By: #### C BC #### [facility] [address] [place] [address] Dr. Rakel Fraga PLT 261 103/ul Normal 150-450 [facility] Comment on above: Performed By: #### C BC #### [facility] [address] [address] [address] Rakel Fraga RBC 4.71 106/ul Normal 4.70-6.10 [facility] Comment on above: Performed By: #### C BC #### [facility] [address] [address] [address] Rakel Fraga WBC 11.0 103/ul Normal 4.0-11.0 [facility] Comment on above: Performed By: #### C BC #### [facility] [address] [place] [address] Dr. Rakel Fraga PROF 14(COMP METB)on 023 Albumin [Mass/Vol] 3.6 g/dL Normal 3.4-5.0 [facility] Comment on above: Performed By: #### U AMIC #### [facility] [address] [address] [address] Rakel Fraga Albumin/Globulin [Mass ratio] 0.9 {ratio} Normal [facility] Comment on above: Performed By: #### U AMIC #### [facility] [address] [place] [address] Dr. Rakel Fraga ALP [Catalytic activity/Vol] 159 U/L Critically high 46-116 [facility] Comment on above: Performed By: #### U AMIC #### [facility] [address] [place] [address] Dr. Rakel Fraga ALT [Catalytic activity/Vol] 20 U/L Normal 16-63 [facility] Comment on above: Performed By: #### U AMIC #### [facility] [address] [place] [address] Dr. Rakel Fraga Anion gap [Moles/Vol] 11.4 mmol/L Normal [facility] Comment on above: Performed By: #### U AMIC #### [facility] [address] [place] [address] Dr. Rakel Fraga AST [Catalytic activity/Vol] 15 U/L Normal 15-37 [facility] Comment on above: Performed By: #### U AMIC #### [facility] [address] [place] [address] Dr. Rakel Fraga Bilirubin [Mass/Vol] 0.3 mg/dL Normal 0.2-1.0 [facility] Comment on above: Performed By: #### U AMIC #### [facility] [address] [address] [address] Rakel Fraga Calcium [Mass/Vol] 9.2 mg/dL Normal 8.5-10.1 [facility] Comment on above: Performed By: #### U AMIC #### [facility] [address] [address] [address] Rakel Fraga Chloride [Moles/Vol] 101 mmol/L Normal 98-107 [facility] Comment on above: Performed By: #### U AMIC #### [facility] [address] [place] [address] Dr. Rakel Fraga CO2 [Moles/Vol] 28.5 mmol/L Normal 21.0-32.0 [facility] Comment on above: Performed By: #### U AMIC #### [facility] [address] [place] [address] Dr. Rakel Fraga Creatinine [Mass/Vol] 1.07 mg/dL Normal 0.70-1.30 [facility] Comment on above: Performed By: #### U AMIC #### [facility] [address] [address] [address] Rakel Fraga EGFR-AF MAURITIAN >60 Normal >=60 [facility] Comment on above: Performed By: #### U AMIC #### [facility] [address] [place] [address] Dr. Rakel Fraga EGFR-NON AF MAURITIAN >60 Normal >=60 [facility] Comment on above: Performed By: #### U AMIC #### [facility] [address] [address] [address] Rakel Fraga Globulin (S) [Mass/Vol] 4.0 g/dL Normal [facility] Comment on above: Performed By: #### U AMIC #### [facility] [address] [place] [address] Dr. Rakel Fraga Glucose [Mass/Vol] 109 mg/dL Critically high 74-106 [facility] Comment on above: Performed By: #### U AMIC #### [facility] [address] [address] [address] Rakel Fraga Potassium [Moles/Vol] 3.9 mmol/L Normal 3.5-5.1 [facility] Comment on above: Performed By: #### U AMIC #### [facility] Laboratory [address] [address] [address] Rakel Fraga Protein [Mass/Vol] 7.6 g/dL Normal 6.4-8.2 [facility] Comment on above: Performed By: #### U AMIC #### [facility] [address] [address] [address] Rakel Fraga Sodium [Moles/Vol] 137 mmol/L Normal 136-145 [facility] Comment on above: Performed By: #### U AMIC #### [facility] [address] [address] [address] Rakel Fraga Urea nitrogen [Mass/Vol] 11.0 mg/dL Normal 7.0-18.0 [facility] Comment on above: Performed By: #### U AMIC #### [facility] [address] [address] [address] Rakel Fraga Urea nitrogen/Creatinine [Mass ratio] 10.3 mg/mg Normal [facility] Comment on above: Performed By: #### U AMIC #### [facility] [address] [place] [address] Dr. Rakel Fraga US SINGLE QUAD RT [...] by: JARETT JARVIS Date: 2022-10-09 10:17 Normal [facility] MRI LSPINE WO CONon 09-17-20 MRI LSPINE [...] by: JARETT GARCÍA Date: 2022-09-17 12:01 Normal [facility] CT ABD/PELVIS WO CONon 09-10 CT ABD/PELVIS [...] DANIELLE KWONG Date: 2022-09-09 23:49 Normal [facility] CBC AUTO DIFFon 09-09-2022 BASO # 0.0 103/ul Normal 0.0-0.1 [facility] Comment on above: Performed By: #### U AMIC #### [facility] [address] [place] [address] Dr. Rakel Fraga Basophils/100 WBC (Bld) 0.4 % Normal 0.2-2.0 [facility] Comment on above: Performed By: #### U AMIC #### [facility] [address] [place] [address] Dr. Rakel Fraga EO # 0.3 103/ul Normal 0.0-0.7 [facility] Comment on above: Performed By: #### U AMIC #### [facility] [address] [place] [address] Dr. Rakel Fraga Eosinophils/100 WBC (Bld) 3.4 % Normal 0.9-7.0 [facility] Comment on above: Performed By: #### U AMIC #### [facility] [address] [place] [address] Dr. Rakel Fraga Erythrocyte distribution width (RBC) [Ratio] 13.0 % Normal 11.0-15.0 [facility] Comment on above: Performed By: #### U AMIC #### [facility] [address] [place] [address] Dr. Rakel Fraga Hematocrit (Bld) [Volume fraction] 43.8 % Normal 42.0-54.0 [facility] Comment on above: Performed By: #### U AMIC #### [facility] [address] [place] [address] Dr. Rakel Fraga Hemoglobin (Bld) [Mass/Vol] 14.6 g/dL Normal 14.0-18.0 [facility] Comment on above: Performed By: #### U AMIC #### [facility] [address] [place] [address] Dr. Rakel Fraga IG # 0.02 10e3/ul Normal 0.00-0.03 [facility] Comment on above: Performed By: #### U AMIC #### [facility] [address] [place] [address] Dr. Rakel Fraga IG % 0.2 % Normal 0.0-0.5 [facility] Comment on above: Performed By: #### U AMIC #### [facility] [address] [place] [address] Dr. Rakel Fraga LYMPH # 2.3 103/ul Normal 1.2-3.8 [facility] Comment on above: Performed By: #### U AMIC #### [facility] [address] [place] [address] Dr. Rakel Fraga Lymphocytes/100 WBC (Bld) 25.3 % Normal 20.5-60.0 [facility] Comment on above: Performed By: #### U AMIC #### [facility] [address] [place] [address] Dr. Rakel Fraga MANUAL DIFF REQ NO Normal [facility] Comment on above: Performed By: #### U AMIC #### [facility] [address] [place] [address] Dr. Rakel Fraga MCH (RBC) [Entitic mass] 30.3 pg Normal 25.9-34.0 [facility] Comment on above: Performed By: #### U AMIC #### [facility] [address] [place] [address] Dr. Rakel Fraga MCHC (RBC) [Mass/Vol] 33.3 g/dL Normal 29.9-35.2 [facility] Comment on above: Performed By: #### U AMIC #### [facility] [address] [address] [address] Rakel Fraga MCV (RBC) [Entitic vol] 90.9 fL Normal 80.0-94.0 [facility] Comment on above: Performed By: #### U AMIC #### [facility] [address] [address] [address] Rakel Fraga MONO # 0.8 103/ul Normal 0.3-0.8 [facility] Comment on above: Performed By: #### U AMIC #### [facility] [address] [place] [address] Dr. Rakel Fraga Monocytes/100 WBC (Bld) 8.5 % Normal 1.7-12.0 [facility] Comment on above: Performed By: #### U AMIC #### [facility] [address] [place] [address] Dr. Rakel Fraga NEUT # 5.5 103/ul Normal 1.4-6.5 [facility] Comment on above: Performed By: #### U AMIC #### [facility] [address] [place] [address] Dr. Rakel Fraga Neutrophils/100 WBC (Bld) 62.2 % Normal 43.0-75.0 [facility] Comment on above: Performed By: #### U AMIC #### [facility] [address] [place] [address] Dr. Rakel Fraga Platelet mean volume (Bld) [Entitic vol] 9.8 fL Normal 9.5-13.5 [facility] Comment on above: Performed By: #### U AMIC #### [facility] [address] [place] [address] Dr. Rakel Fraga PLT 252 103/ul Normal 150-450 [facility] Comment on above: Performed By: #### U AMIC #### [facility] [address] [place] [address] Dr. Rakel Fraga RBC 4.82 106/ul Normal 4.70-6.10 [facility] Comment on above: Performed By: #### U AMIC #### [facility] [address] [place] [address] Dr. Rakel Fraga WBC 8.9 103/ul Normal 4.0-11.0 [facility] Comment on above: Performed By: #### U AMIC #### [facility] [address] [place] [address] Dr. Rakel Fraga PROF CHEM 8 (BAS METB)on Anion gap [Moles/Vol] 9.4 mmol/L Normal [facility] Comment on above: Performed By: #### B MP #### [facility] [address] [place] [address] Dr. Rakel Fraga Calcium [Mass/Vol] 8.5 mg/dL Normal 8.5-10.1 [facility] Comment on above: Performed By: #### B MP #### [facility] [address] [place] [address] Dr. Rakel Fraga Chloride [Moles/Vol] 104 mmol/L Normal 98-107 [facility] Comment on above: Performed By: #### B MP #### [facility] [address] [place] [address] Dr. Rakel Fraga CO2 [Moles/Vol] 28.0 mmol/L Normal 21.0-32.0 [facility] Comment on above: Performed By: #### B MP #### [facility] [address] [place] [address] Dr. Rakel Fraga Creatinine [Mass/Vol] 1.18 mg/dL Normal 0.70-1.30 [facility] Comment on above: Performed By: #### B MP #### [facility] [address] [place] [address] Dr. Rakel Fraga EGFR-AF MAURITIAN >60 Normal >=60 [facility] Comment on above: Performed By: #### B MP #### [facility] [address] [place] [address] Dr. Rakel Fraga EGFR-NON AF MAURITIAN >60 Normal >=60 [facility] Comment on above: Performed By: #### B MP #### [facility] [address] [address] [address] Rakel Fraga Glucose [Mass/Vol] 92 mg/dL Normal 74-106 [facility] Comment on above: Performed By: #### B MP #### [facility] [id number] Rakel Fraga Potassium [Moles/Vol] 3.4 mmol/L Critically low 3.5-5.1 [facility] Comment on above: Performed By: #### B MP #### [facility] [address] [address] [address] Rakel Fraga Sodium [Moles/Vol] 138 mmol/L Normal 136-145 [facility] Comment on above: Performed By: #### B MP #### [facility] [address] [address] [address] Rakle Fraga Urea nitrogen [Mass/Vol] 20.0 mg/dL Critically high 7.0-18.0 [facility] Comment on above: Performed By: #### B MP #### [facility] [address] [address] [address] Rakel Fraga Urea nitrogen/Creatinine [Mass ratio] 16.9 mg/mg Normal [facility] Comment on above: Performed By: #### B MP #### [facility] [address] [address] [address] HEAD WO CONon [...] DE PAZ Date: 2022-07-28 14:51 Normal [facility] MRI [facility] WO CONon 07-20-20 22 MRI [facility] CON EXAMINATION: MRI [facility] CON HISTORY: Anesthesia of skin [...] NOEMÍ MORRISON Date: 2022-07-20 12:52 Normal [facility] OVA AND PARASITE EXAMINATION on 07-13-2022 Ova + Parasite Exam Final report Normal [facility] Comment on above: Result Comment: Thes e results were obtained using wet preparation(s) and trichrome stained smear. This test does not include testing for Cryptosporidium parvum, Cyclospora, or Microsporidia. Performed By: #### U AMIC #### [facility] [address] [address] [address] Rakel Fraga Result 1 Comment Normal [facility] Comment on above: Result Comment: No o va, cysts, or parasites seen. . One negative specimen does not rule out the possibility of a parasitic infection. Performed By: #### U AMIC #### [facility] [address] [address] [address] Rakel Fraga CLOSTRIDIUM DIFFICILE PCRon 07-12-2022 C difficile Toxin Gene SHADIA Negative Normal Negative [facility] Comment on above: Performed By: #### C DIFNAA #### [facility] [address] [address] [address] Rakel Fraga Physician Referralon 022 Physician Referral [id number]:[id number] Normal [facility] STOOL CULTUREon 07-10-2022 Campylobacter Culture Final report Normal [facility] Comment on above: Performed By: #### C XSTOOL ####[facility] [address] [address]Dr. Rakel Fraga E coli Shiga Toxin EIA Negative Normal Negative [facility] Comment on above: Performed By: #### C XSTOOL ####[facility] [address] [id number]. Rakel Fraga Result 1 Comment Normal [facility] Comment on above: Result Comment: No S almonella or Shigella recovered. Performed By: #### C XSTOOL ####[facility] [address] [id number]. Rakel Fraga Result Comment: No C ampylobacter species isolated. Salmonella/Shigella Screen Final report Normal [facility] Comment on above: Performed By: #### C XSTOOL ####[facility] [id number] Rakel Fraga CT ABD/PELV W CONon 07-07-20 [...] ALBERTO REDMAN Date: 2022-07-07 16:50 Normal [facility] AMYLASEon 07-04-2022 Amylase [Catalytic activity/Vol] 40 U/L Normal 25-115 [facility] Comment on above: Performed By: #### L IPA, CHILANGO, CRP, CMP ####[facility] [address] [place], [place] [address]DrKailey Rakel Fraga CBC AUTO DIFFon 07-04-2022 BASO # 0.0 103/ul Normal 0.0-0.1 [facility] Comment on above: Performed By: #### B MP #### [facility] [address] [place] [address] Dr. Rakel Fraga Basophils/100 WBC (Bld) 0.5 % Normal 0.2-2.0 [facility] Comment on above: Performed By: #### B MP #### [facility] [address] [place] [address] Dr. Rakel Fraga EO # 0.5 103/ul Normal 0.0-0.7 [facility] Comment on above: Performed By: #### B MP #### [facility] [address] [place] [address] Dr. Rakel Fraga Eosinophils/100 WBC (Bld) 6.8 % Normal 0.9-7.0 [facility] Comment on above: Performed By: #### B MP #### [facility] [address] [place] [address] Dr. Rakel Fraga Erythrocyte distribution width (RBC) [Ratio] 13.0 % Normal 11.0-15.0 [facility] Comment on above: Performed By: #### B MP #### [facility] [address] [place] [address] Dr. Rakel Fraga Hematocrit (Bld) [Volume fraction] 39.2 % Critically low 42.0-54.0 [facility] Comment on above: Performed By: #### B MP #### [facility] [address] [place] [address] Dr. Rakel Fraga Hemoglobin (Bld) [Mass/Vol] 12.7 g/dL Critically low 14.0-18.0 [facility] Comment on above: Performed By: #### B MP #### [facility] [address] [place] [address] Dr. Rakel Fraga IG # 0.02 10e3/ul Normal 0.00-0.03 [facility] Comment on above: Performed By: #### B MP #### [facility] [address] [place] [address] Dr. Rakel Fraga IG % 0.3 % Normal 0.0-0.5 [facility] Comment on above: Performed By: #### B MP #### [facility] [address] [place] [address] Dr. Rakel Fraga LYMPH # 1.5 103/ul Normal 1.2-3.8 [facility] Comment on above: Performed By: #### B MP #### [facility] [address] [place] [address] Dr. Rakel Fraga Lymphocytes/100 WBC (Bld) 22.4 % Normal 20.5-60.0 [facility] Comment on above: Performed By: #### B MP #### [facility] [address] [place] [address] Dr. Rakel Fraga MANUAL DIFF REQ NO Normal [facility] Comment on above: Performed By: #### B MP #### [facility] [address] [place] [address] Dr. Rakel Fraga MCH (RBC) [Entitic mass] 29.8 pg Normal 25.9-34.0 [facility] Comment on above: Performed By: #### B MP #### [facility] [address] [place] [address] Dr. Rakel Fraga MCHC (RBC) [Mass/Vol] 32.4 g/dL Normal 29.9-35.2 [facility] Comment on above: Performed By: #### B MP #### [facility] [address] [place] [address] Dr. Rakel Fraga MCV (RBC) [Entitic vol] 92.0 fL Normal 80.0-94.0 [facility] Comment on above: Performed By: #### B MP #### [facility] [address] [place] [address] Dr. Rakel Fraga MONO # 0.4 103/ul Normal 0.3-0.8 [facility] Comment on above: Performed By: #### B MP #### [facility] [address] [place] [address] Dr. Rakel Fraga Monocytes/100 WBC (Bld) 6.2 % Normal 1.7-12.0 [facility] Comment on above: Performed By: #### B MP #### [facility] [address] [address] [address] Rakel Fraga NEUT # 4.2 103/ul Normal 1.4-6.5 [facility] Comment on above: Performed By: #### B MP #### [facility] [address] [address] [address] Rakel Fraga Neutrophils/100 WBC (Bld) 63.8 % Normal 43.0-75.0 [facility] Comment on above: Performed By: #### B MP #### [facility] [address] [address] [address] Rakel Fraga Platelet mean volume (Bld) [Entitic vol] 9.8 fL Normal 9.5-13.5 [facility] Comment on above: Performed By: #### B MP #### [facility] [address] [address] [address] Rakel Fraga PLT 185 103/ul Normal 150-450 [facility] Comment on above: Performed By: #### B MP #### [facility] [address] [address] [address] Rakel Fraga RBC 4.26 106/ul Critically low 4.70-6.10 [facility] Comment on above: Performed By: #### B MP #### [facility] [address] [address] [address] Rakel Fraga WBC 6.6 103/ul Normal 4.0-11.0 [facility] Comment on above: Performed By: #### B MP #### [facility] [address] [address] [address] Rakel Fraga CRPon 07-04-2022 CRP [Mass/Vol] mg/L Normal <=1.0 [facility] Comment on above: Performed By: #### L IPA, CHILANGO, CRP, CMP ####[facility] [address] [address]Dr. Rakel Fraga LIPASEon 07-04-2022 Lipase [Catalytic activity/Vol] 65.0 U/L Critically low 73.0-393.0 [facility] Comment on above: Performed By: #### L IPA, CHILANGO, CRP, CMP ####[facility] [address] [address]Dr. Rakel Fraga OCC BLD IMMUNO SCREENon 06-15 OCCULT BLOOD Negative Normal NEGATIVE [facility] Comment on above: Performed By: #### U AMIC #### [facility] [address] [address] [address] Rakel Fraga PROF 14(COMP METB)on 022 Albumin [Mass/Vol] 3.7 g/dL Normal 3.4-5.0 [facility] Comment on above: Performed By: #### L IPA, CHILANGO, CRP, CMP ####[facility] [address] [address]Dr. Rakel Fraga Albumin/Globulin [Mass ratio] 1.2 {ratio} Normal [facility] Comment on above: Performed By: #### L IPA, CHILANGO, CRP, CMP ####[facility] [address] [address]Dr. Rakel Fraga ALP [Catalytic activity/Vol] 101 U/L Normal 46-116 [facility] Comment on above: Performed By: #### L IPA, CHILANGO, CRP, CMP ####[facility] [address] [address]Dr. Rakel Fraga ALT [Catalytic activity/Vol] 47 U/L Normal 16-63 [facility] Comment on above: Performed By: #### L IPA, CHILANGO, CRP, CMP ####[facility] [address] [address]Dr. Rakel Fraga Anion gap [Moles/Vol] 11.1 mmol/L Normal [facility] Comment on above: Performed By: #### L IPA, CHILANGO, CRP, CMP ####[facility] [address] [address]Dr. Rakel Fraga AST [Catalytic activity/Vol] 28 U/L Normal 15-37 [facility] Comment on above: Performed By: #### L IPA, CHILANGO, CRP, CMP ####[facility] [address] [address]Dr. Rakel Fraga Bilirubin [Mass/Vol] 0.5 mg/dL Normal 0.2-1.0 [facility] Comment on above: Performed By: #### L IPA, CHILANGO, CRP, CMP ####[facility] [address] [address]Dr. Rakel Fraga Calcium [Mass/Vol] 8.7 mg/dL Normal 8.5-10.1 [facility] Comment on above: Performed By: #### L IPA, CHILANGO, CRP, CMP ####[facility] [address] [place], [place] [address]Dr. Rakel Fraga Chloride [Moles/Vol] 110 mmol/L Critically high 98-107 [facility] Comment on above: Performed By: #### L IPA, CHILANGO, CRP, CMP ####[facility] [address] [place], [place] [address]Dr. Rakel Fraga CO2 [Moles/Vol] 26.0 mmol/L Normal 21.0-32.0 [facility] Comment on above: Performed By: #### L IPA, CHILANGO, CRP, CMP ####[facility] [address] [place], [place] [address]Dr. Rakel Fraga Creatinine [Mass/Vol] 1.23 mg/dL Normal 0.70-1.30 [facility] Comment on above: Performed By: #### L IPA, CHILANGO, CRP, CMP ####[facility] [address] [place], [place] [address]Dr. Rakel Fraga EGFR-AF MAURITIAN >60 Normal >=60 [facility] Comment on above: Performed By: #### L IPA, CHILANGO, CRP, CMP ####[facility] [address] [place], [place] [address]Dr. Rakel Fraga EGFR-NON AF MAURITIAN >60 Normal >=60 [facility] Comment on above: Performed By: #### L IPA, CHILANGO, CRP, CMP ####[facility] [address] [place], [place] [address]Dr. Rakel Fraga Globulin (S) [Mass/Vol] 3.2 g/dL Normal [facility] Comment on above: Performed By: #### L IPA, CHILANGO, CRP, CMP ####[facility] [address] [address]Dr. Rakel Fraga Glucose [Mass/Vol] 82 mg/dL Normal 74-106 [facility] Comment on above: Performed By: #### L IPA, CHILANGO, CRP, CMP ####[facility] [address] [address]Dr. Rakel Fraga Potassium [Moles/Vol] 4.1 mmol/L Normal 3.5-5.1 [facility] Comment on above: Performed By: #### L IPA, CHILANGO, CRP, CMP ####[facility] [address] [address]Dr. Rakel Fraga Protein [Mass/Vol] 6.9 g/dL Normal 6.4-8.2 [facility] Comment on above: Performed By: #### L IPA, CHILANGO, CRP, CMP ####[facility] [address] [address]Dr. Rakel Fraga Sodium [Moles/Vol] 143 mmol/L Normal 136-145 [facility] Comment on above: Performed By: #### L IPA, CHILANGO, CRP, CMP ####[facility] [address] [address]Dr. Rakel Fraga Urea nitrogen [Mass/Vol] 23.0 mg/dL Critically high 7.0-18.0 [facility] Comment on above: Performed By: #### L IPA, CHILANGO, CRP, CMP ####[facility] [address] [address]Dr. Rakel Fraga Urea nitrogen/Creatinine [Mass ratio] 18.7 mg/mg Normal [facility] Comment on above: Performed By: #### L IPA, CHILANGO, CRP, CMP ####[facility] [address] [address]Dr. Rakel Fraga [facility] SED RATE 7 mm/hr Normal <=20 [facility] Comment on above: Performed By: #### S EDR ####[facility] [address] [address]Dr. Rakel Fraga UA RANDOM W/MICROSCOPICon BACTERIA NONE SEEN Normal NONE SEEN [facility] Comment on above: Performed By: #### U AMIC #### [facility] [address] [address] [address] Rakel Fraga Bilirubin Ql (U) Negative Normal NEGATIVE [facility] Comment on above: Performed By: #### U AMIC #### [facility] [address] [address] [address] Rakel Fraga CAST NONE SEEN Normal NONE SEEN [facility] Comment on above: Performed By: #### U AMIC #### [facility] [address] [address] [address] Rakel Fraga Clarity (U) CLEAR Normal CLEAR [facility] Comment on above: Performed By: #### U AMIC #### [facility] [address] [address] [address] Rakel Fraga Color (U) YELLOW Normal YELLOW [facility] Comment on above: Performed By: #### U AMIC #### [facility] [address] [address] [address] Rakel Fraga Crystals LM Nom (Urine sed) NONE SEEN Normal NONE SEEN [facility] Comment on above: Performed By: #### U AMIC #### [facility] [address] [address] [address] Rakel Fraga Epithelial cells LM Ql (Urine sed) RARE Normal NONE SEEN /RARE [facility] Comment on above: Performed By: #### U AMIC #### [facility] [address] [address] [address] Rakel Fraga Glucose Ql (U) Negative Normal NEGATIVE [facility] Comment on above: Performed By: #### U AMIC #### [facility] [facility] [address] [address] [address] Rakel Fraga Hemoglobin Ql (U) Negative Normal NEGATIVE The [facility] Comment on above: Performed By: #### U AMIC #### [facility] [address] [address] [address] Rakel Fraga Ketones Ql (U) Negative Normal NEGATIVE The [facility] Comment on above: Performed By: #### U AMIC #### [facility] [address] [address] [address] Rakel Fraga LEUKOCYTES Negative Normal NEGATIVE The [facility] Comment on above: Performed By: #### U AMIC #### [facility] [address] [address] [address] Rakel Fraga MUCOUS NONE SEEN Normal NONE SEEN The [facility] Comment on above: Performed By: #### U AMIC #### [facility] [address] [address] [address] Rakel Fraga Nitrite Ql (U) Negative Normal NEGATIVE The [facility] Comment on above: Performed By: #### U AMIC #### [facility] [address] [place] [address] Dr. Rakel Fraga pH (U) 5.5 [pH] Normal 5-9 [facility] Comment on above: Performed By: #### U AMIC #### [facility] [address] [place] [address] Dr. Rakel Fraga RBC NONE SEEN Abnormal 0-2 [facility] Comment on above: Performed By: #### U AMIC #### [facility] [address] [place] [address] Dr. Rakel Fraga SPEC GRAVITY >=1.030 Abnormal 1.005-<=1.025 The [facility] Comment on above: Performed By: #### U AMIC #### [facility] [address] [place] [address] Dr. Rakel Fraga UA PROTEIN Negative Normal NEGATIVE/ TRACE [facility] Comment on above: Performed By: #### U AMIC #### [facility] [address] [place] [address] Dr. Rakel Fraga Urobilinogen Qn (U) 0.2 {Arnoldo'U}/dL Normal 0.2 - 1. 0 The [facility] Comment on above: Performed By: #### U AMIC #### [facility] [address] [place], [place] [address] Dr. Rakel Fraga WBC NONE SEEN Normal NONE SEEN The [facility] Comment on above: Performed By: #### U [facility] #### [facility] [address] [place], [place] [address] Dr. Rakel Fraga NM HEPATOBILIARY SCAN W [...] by: JARETT GARCÍA Date: 2022-06-29 16:08 Normal [facility] US SINGLE QUAD RT UPPERon US SINGLE [...] by: NOEMÍ MORRISON Date: 2022-06-25 13:03 Normal [facility] Coding Summaryon 04-05-2020 Coding Summary CODING DATE: 04/05/2020 [facility] STATUS: Home PAYOR: Medicare ADMIT DX: [...] Concha Lovett Date Saved: 04/05/2020 12:34 pm [facility] Consent Formson 03-31-2020 Consent Forms [id number] 03-14 Medication Management [id number] [facility] Anesthesia Noteon 03-30-2020 Anesthesia Note [...] history): All Problems Depression / SNOMED CT 190018485 / Confirmed Asthma / SNOMED CT 695830284 / Confirmed Chronic maxillary sinusitis / SNOMED CT 28364371 / Confirmed Epileptic seizures / SNOMED CT 582019367 / Confirmed Lumbago / SNOMED CT 182022374 / Confirmed Lumbar spondylosis / SNOMED CT 041368780 / Confirmed Histories Family History: No family [...] Oriented. Review / Management Laboratory Results Plan [employer] Society of Anesthesiologists#( A) physical status classification: Class II. Anesthetic Preoperative Plan Anesthesia: Monitored anesthesia care. Anesthetic plan, risks, benefits, and alternatives discussed with the patient and/or family. Patient verbalized understanding. [Electronically Signed on: 03/30/2020 09:37 EDT] Nando Saeed MD [Verified on: 03/30/2020 09:37 EDT] Nando Saeed MD [facility] Inpatient Patient Summaryon 03-30-2020 [place] [address] Patient Discharge Instructions Name: SHANEL KALANI Mario : 1970 Patient Address: [address] [place] [address] Primary Care Provider: Name: Marcia Rodriguez DO After you are discharged if you find you have any questions, please, call [phone] ext [phone] to speak to a nurse. Discharge Diagnosis: Lumbago; Lumbar spondylosis Prescription Information: If you have been given a prescription for narcotics, seek immediate medical attention if you have any difficulty breathing or any sudden status changes such as confusion and sleepiness. If you or anyone you know is experiencing suicidal thoughts, mental health, alcohol and/or drug addiction problems; contact the [facility] 06/05 Crisis Hotline -Text 4HIVH fu 517990. If you received any narcotics, sedation, or [...] business decisions or sign any legal documents [facility] would like to thank you [...] for Disease Control and Prevention June 2014 [facility] MAGR Intraoperative Recordon 03-30-2020 MAGR Intraoperative Record MAGR Intra-Op Record Summary Primary Physician: Hany Galo MD Finalized Date/Time: 03/30/20 09:59:33 Pt. Name: KALANI ASENCIO /Sex: 1970 MALE Med Rec #: [id number] Physician: Hany Galo MD Financial #: [id number] Pt. Type: D Room/Bed: / Admit/Disch: 03/30/20 [...] Role Performed Surgeon - Primary Anesthesiologist of Student Education Specialist Record Time In 03/30/20 09:48:00 03/30/20 09:48:00 03/30/20 09:48:00 Time Out 03/30/20 09:57:00 03/30/20 09:57:00 03/30/20 09:57:00 Procedure Medial Branch Medial Branch Medial Branch Block(Bilateral) Block(Bilateral) Block(Bilateral) Last Modified By: Mitzi Wu RN, Stephanie RN Sauer, Stephanie RN 03/30/20 09:57:46 03/30/20 09:57:46 03/30/20 09:57:46 Entry 4 Entry 5 Entry 6 Case Attendee Mitzi Wu RN, Kelly Calmes, Luke T Role Performed Student Education Specialist Student Education Specialist Tile Mechanic Helper Time In 03/30/20 09:48:00 03/30/20 09:48:00 03/30/20 09:48:00 Time Out 03/30/20 09:57:00 03/30/20 09:57:00 03/30/20 09:57:00 Procedure Medial Branch Medial Branch Medial Branch Block(Bilateral) Block(Bilateral) Block(Bilateral) Last Modified By: Mitzi Wu RN, Stephanie RN Sauer, Stephanie RN 03/30/20 09:57:46 03/30/20 09:57:46 03/30/20 09:57:46 Entry 7 Entry 8 Entry 9 Case Attendee Angeli Belcher Courtney ASSOCIATE DEAN Ke Allen CST Role Performed Scrub Personnel Scrub Personnel Tile Mechanic Helper Time In 03/30/20 09:48:00 03/30/20 09:48:00 03/30/20 [...] Agents (Im.270) Povidone-Iodine Prep By Abida Suh ASSOCIATE DEAN Prep Area (Im.270) Back Skin Prep Agent [...] Signed By: Mitzi Wu RN 03/30/20 09:59 [facility]-2020 MAGR Preoperative Record MAGR Pre-Op Record Summary Primary Physician: Hany Galo MD Finalized Date/Time: 03/30/20 10:12:44 Pt. Name: KALANI ASENCIO./Sex: 1970 MALE Med Rec #: [id number] Physician: Hany Galo MD Financial #: [id number] Pt. Type: D Room/Bed: / Admit/Disch: 03/30/20 [...] Signed By: Kassie James RN 03/30/20 10:12 [facility] Operative Report - Surgeon/P hilary 03-30-2020 [...] on: 03/30/2020 09:56 EDT] Hany Galo MD [facility] Patient Handouton 03-30-2020 Patient Handout Pain [...] to your first appointment after your procedure [facility] Coding Summaryon 03-29-2020 Coding Summary CODING DATE: 03/29/2020 [facility] STATUS: Home PAYOR: Medicare ADMIT DX: [...] Mandy Tarango Date Saved: 03/29/2020 03:20 pm [facility] History and Physicalon 03-29 History and Physical [id number] The patient has been examined and the medical record reviewed. The indications for surgery and exam are unchanged. [Electronically Signed on: 03/30/2020 08:37 EDT] Hany Galo MD [Verified on: 03/30/2020 08:37 EDT] Hany Galo MD [Transcribed on: 03/29/2020 14:32 EDT] [facility] Lab - Immunology/Serology Re sultson 03-29-2020 Lab - Immunology/Serology Results [id number] .00OTGTIFF [facility] Provider Orderson 03-28-2020 Provider Orders [id number] .00OTGTIFF [facility] SARS-CoV-2 (COVID-19) PCRon 03-28-2020 COVID-19 PCR Not Detected Normal Not Detected [facility] Comment on above: Order Comment: SENT TO [facility] 03/27/2020 SD Result Comment: Perf ormed at [facility] Department of Pathology [address] [place] [id number] Results Called To Javier Dowell RN, Adhesive Bandage Making Operator By LR And Read Back For Confirmation On 03/28/2020 15:36:12 EDT. Performed By: #### 6 [id number] ####[facility] (DEFAULT)[address] [place] [address] Progress Note - Provideron 0 03-25-2020 Progress Note - Provider [id number] .00OTGTIFF [facility] Coding Summaryon 03-24-2020 Coding Summary CODING DATE: 03/24/2020 [facility] STATUS: Home PAYOR: Medicare ADMIT DX: [...] Madeleine Baugh Date Saved: 03/24/2020 04:50 pm [facility] Coding Summary CODING DATE: 03/24/2020 [facility] STATUS: Home PAYOR: Medicare ADMIT DX: [...] Madeleine Baugh Date Saved: 03/24/2020 01:02 pm [facility] Coding Summaryon 03-21-2020 Coding Summary CODING DATE: 03/21/2020 [facility] STATUS: Home PAYOR: Medicare ADMIT DX: [...] Concha Lovett Date Saved: 03/21/2020 07:48 am [facility] Consent Formson 03-17-2020 Consent Forms [id number] [facility] Medication Managementon Medication Management [id number] [facility] Anesthesia Noteon 03-16-2020 Anesthesia Note [...] on: 03/16/2020 10:38 EDT] Warren Quach MD [facility] Anesthesia Note Patient: KALANI ASENCIO Age: [...] history): All Problems Depression / SNOMED CT 282434709 / Confirmed Asthma / SNOMED CT 918192766 / Confirmed Chronic maxillary sinusitis / SNOMED CT 18369453 / Confirmed Epileptic seizures / SNOMED CT 011368411 / Confirmed Lumbago / SNOMED CT 692886943 / Confirmed Lumbar spondylosis / SNOMED CT 546012828 / Confirmed Histories Family History: No family [...] Oriented. Review / Management Laboratory Results Plan [employer] Society of Anesthesiologists#( A) physical status classification: Class II. Anesthetic Preoperative Plan Anesthesia: Monitored anesthesia care. Anesthetic plan, risks, benefits, and alternatives discussed with the patient and/or family. Patient verbalized understanding. Informed consent was given. Anesthetic technique: Monitored anesthesia care. [Electronically Signed on: 03/16/2020 10:32 EDT] Warren Quach MD [Verified on: 03/16/2020 10:32 EDT] Warren Quach MD [facility] Inpatient Patient Summaryon 03-16-2020 [place] [address] Patient Discharge Instructions Name: KALANI ASENCIO : 1970 Patient Address: [address] [place] [address] Primary Care Provider: Name: Marcia Rodriguez DO After you are discharged if you find you have any questions, please, call [phone] ext [phone] to speak to a nurse. Discharge Diagnosis: Lumbago; Lumbar spondylosis Prescription Information: If you have been given a prescription for narcotics, seek immediate medical attention if you have any difficulty breathing or any sudden status changes such as confusion and sleepiness. If you or anyone you know is experiencing suicidal thoughts, mental health, alcohol and/or drug addiction problems; contact the [facility] 06/05 Crisis Hotline -Text 4HQLC kv [phone]. If you received any narcotics, sedation, or [...] business decisions or sign any legal documents [facility] would like to thank you [...] for Disease Control and Prevention June 2014 [facility] Lab - Immunology/Serology Re sultson 03-16-2020 Lab - Immunology/Serology Results [id number] .00OTGTIFF [facility] MAGR Intraoperative Recordon 03-16-2020 MAGR Intraoperative Record MAGR Intra-Op Record Summary Primary Physician: Hany Galo MD Finalized Date/Time: 03/16/20 10:40:07 Pt. Name: KALANI ASENCIOO.B./Sex: 1970 MALE Med Rec #: [id number] Physician: Hany Galo MD Financial #: [id number] Pt. Type: D Room/Bed: / Admit/Disch: 03/16/20 [...] Role Performed Surgeon - Primary Anesthesiologist of Student Education Specialist Record Time In 03/16/20 10:30:00 03/16/20 10:30:00 03/16/20 10:30:00 Time Out 03/16/20 10:36:00 03/16/20 10:36:00 03/16/20 10:36:00 Procedure Medial Branch Medial Branch Medial Branch Block(Bilateral) Block(Bilateral) Block(Bilateral) Last Modified By: Swathi Beltran RN, Barbara RN Long, Barbara RN 03/16/20 10:36:38 03/16/20 10:36:38 03/16/20 10:36:38 Entry 4 Entry 5 Entry 6 Case Attendee Jorge MORRIS, Krystle Goldman Liberty G Role Performed Student Education Specialist Student Education Specialist Scrub Personnel Time In 03/16/20 10:30:00 03/16/20 10:30:00 03/16/20 10:30:00 Time Out 03/16/20 10:36:00 03/16/20 10:36:00 03/16/20 10:36:00 Procedure Medial Branch Medial Branch Medial Branch Block(Bilateral) Block(Bilateral) Block(Bilateral) Last Modified By: Swathi Beltran RN, Barbara RN Long, Barbara RN 03/16/20 10:36:38 03/16/20 10:36:38 03/16/20 10:36:38 Entry 7 Case Attendee Courtney Fay Role Performed Tile Mechanic Helper Time In 03/16/20 10:30:00 Time Out 03/16/20 [...] Signed By: Swathi Beltran RN 03/16/20 10:40 [facility] [place] [facility] Pre-Op Record Summary Primary Physician: Hany Galo MD Finalized Date/Time: 03/16/20 10:54:47 Pt. Name: KALANI ASENCIOO.B./Sex: 1970 MALE Med Rec #: [id number] Physician: Hany Galo MD Financial #: [id number] Pt. Type: D Room/Bed: / Admit/Disch: 03/16/20 [...] Signed By: Blanka Szymanski RN 03/16/20 10:54 [facility] Operative Report - Surgeon/P hilary 03-16-2020 [...] on: 03/16/2020 10:35 EDT] Hany Galo MD [facility] Patient Handouton 03-16-2020 Patient Handout Pain [...] to your first appointment after your procedure [facility] History and Physicalon 03-15 History and Physical [id number] .00OTGTIFF The patient has been examined and the medical record reviewed. The indications for surgery and exam are unchanged. [Electronically Signed on: 03/16/2020 10:25 EDT] Hany Galo MD [Verified on: 03/16/2020 10:25 EDT] Hany Galo MD [Transcribed on: 03/15/2020 13:40 EDT] BK Normal [facility] Lab - Reference Lab Resultso n 03-15-2020 Lab - Reference Lab Results [id number] .00OTGTIFF [facility] Progress Note - Provideron 0 03-15-2020 Progress Note - Provider [id number] .00OTGTIFF [facility] SARS-CoV-2 (COVID-19) PCRon 03-15-2020 COVID-19 PCR Not Detected Normal Not Detected [facility] Comment on above: Order Comment: Sent to [facility] 03/13/2020 11:05:18 EDT SD Performed By: #### 6 [id number] ####[facility] (DEFAULT)[address] [place] [address] Provider Orderson 03-14-2020 Provider Orders [id number] .00OTGTIFF [facility] Coding Summaryon 03-10-2020 Coding Summary CODING DATE: 03/10/2020 [facility] STATUS: Home PAYOR: Medicare ADMIT DX: [...] Madeleine Baugh Date Saved: 03/10/2020 03:34 pm [facility] Coding Summaryon 03-08-2020 Coding Summary CODING DATE: 03/08/2020 [facility] STATUS: Home PAYOR: Medicare ADMIT DX: [...] Madeleine Baugh Date Saved: 03/08/2020 09:40 am [facility] Coding Summaryon 02-29-2020 Coding Summary CODING DATE: 02/29/2020 [facility] STATUS: Home PAYOR: Medicare APC DESCRIPTION [...] Tarango Revised Date Saved: 02/24/2020 08:52 am [facility] Controlled Substances Agreem entson 02-26-2020 Controlled Substances Agreements [id number] .00OTGTIFF [facility] Progress Note - Provideron 0 02-25-2020 Progress Note - Provider [id number] .00OTGTIFF [facility] XR Spine Lumbosacral Complet e w/ [...] Body height 187.96 cm Jemalwin Teague Other [employer] Other 08-29-2023 14:20-0500 Body mass index (BMI) [Ratio] 19.9 kg/m2 Jemal Ho Other [employer] Other 08-29-2023 14:20-0500 Body weight 70.31 kg Jemal Ho Other [employer] Other 06-11-2023 14:15-0400 Body height 187.96 cm Imad AsaZapoint Other [employer] Other 06-11-2023 14:15-0400 Body mass index (BMI) [Ratio] 19.9 kg/m2 Imad Asaad Other [employer] Other 06-11-2023 14:15-0400 Body weight 70.31 kg Imad Asaad Other [employer] Other 06-11-2023 14:15-0400 Diastolic blood pressure 71 mm[Hg] Imad Asaad Other [employer] Other 06-11-2023 14:15-0400 Respiratory rate 18 /min Imad Asaad Other [employer] Other 06-11-2023 14:15-0400 Systolic blood pressure 122 mm[Hg] Imad Asaad Other [employer] Other 04-18-2023 14:50-0400 Diastolic blood pressure 77 mm[Hg] [facility] 04-18-2023 14:50-0400 Heart rate 73 /min [facility] 04-18-2023 14:50-0400 Respiratory rate 16 /min [facility] 04-18-2023 14:50-0400 SaO2% (BldA) [Mass fraction] 98 % [facility] 04-18-2023 14:50-0400 Systolic blood pressure 106 mm[Hg] [facility] 04-18-2023 12:36-0400 Body height 185.42 cm [facility] 04-18-2023 12:36-0400 Body temperature 98.2 [degF] [facility] 04-18-2023 12:36-0400 Body weight 68.03 kg [facility] 03-13-2023 14:00-0400 Body height 187.96 cm Imad Asaad Other [employer] Other 03-13-2023 14:00-0400 Body mass index (BMI) [Ratio] 19.51 kg/m2 Imad Asaad Other [employer] Other 03-13-2023 14:00-0400 Body weight 68.95 kg Imad Asaad Other [employer] Other 03-13-2023 14:00-0400 Diastolic blood pressure 70 mm[Hg] Imad Asaad Other [employer] Other 03-13-2023 14:00-0400 Respiratory rate 18 /min Imad Asaad Other [employer] Other 03-13-2023 14:00-0400 Systolic blood pressure 150 mm[Hg] Imad Asaad Other [employer] Other Encounters Encounter Date Encounter Type Care Provider Facility Start: 04-06-2024 End: 04-06-2024 ambulatory CARMEN AICHHOLZ Not Available Start: 02-27-2024 End: 02-27-2024 ambulatory DAVID LOWE Not Available Start: 02-24-2024 End: 02-24-2024 ambulatory CARMEN AICHHOLZ Not Available Start: 01-13-2024 End: 01-13-2024 ambulatory CARMEN AICHHOLZ Not Available Start: 10-09-2023 End: 10-09-2023 ambulatory CARMEN AICHHOLZ Not Available Start: 08-29-2023 End: 08-29-2023 ambulatory Jemal Teague Other [facility] Other Start: 08-29-2023 Office outpatient new 30 minutes Jemal Teague [facility] Start: 08-27-2023 End: 08-27-2023 ambulatory NON STAFF Facility:[facility] Start: 08-27-2023 End: 08-27-2023 ambulatory NON STAFF [facility] Work Phone: Start: 08-27-2023 End: 08-27-2023 Patient encounter procedure [facility] [place] Work Phone: Start: 06-11-2023 End: 06-11-2023 ambulatory Imad Asaad Other [employer] Other Start: 06-11-2023 Office outpatient visit 25 minutes Imad Asaad [facility] Start: 04-18-2023 End: 04-18-2023 ambulatory Imad Asaad Facility:[facility] Start: 04-18-2023 End: 04-18-2023 Admission to same day surgery center [facility] Work Phone: Start: 04-18-2023 End: 04-18-2023 ambulatory NON STAFF [facility] Work Phone: Start: 03-13-2023 End: 03-13-2023 ambulatory Imad Asaad Other [employer] Other Start: 03-13-2023 Office outpatient new 45 minutes Imad Asaad [facility] Start: 03-12-2023 End: 03-13-[address] JARETT GARCÍA Facility:[facility] Start: 01-31-2023 End: 02-01-2023 ambulatory NARENDRANATH LAKSHMIPATHY . Facility:[facility] Start: 01-14-2023 End: 01-14-2023 ambulatory DIRECTORY OPERATOR CARMEN FELISA Facility:[facility] Start: 01-07-2023 End: 01-08-2023 ambulatory DIRECTORY OPERATOR CARMEN AICHSTACEYZ Facility:[facility] Start: 01-02-2023 End: 01-02-2023 ambulatory DIRECTORY OPERATOR CARMEN AICKATHRYN Facility:[facility] Start: 11-07-2022 End: 11-08-2022 [...] ANGUIANO Facility:[facility] Start: 07-10-2022 End: 07-10-2022 ambulatory DIRECTORY OPERATOR CARMEN FALLONMiteshSTACEYJoe Facility:[facility] Start: 07-10-2022 ambulatory CARMEN CARMEN FELISA Faci lity:Too Start: 07-06-2022 End: 07-07-2022 ambulatory DIRECTORY OPERATOR CARMEN FELISA Facility:[facility] Start: 07-05-2022 End: 07-05-2022 ambulatory DIRECTORY OPERATOR CARMEN KERVINCHANTELLE Facility:[facility] Start: 07-04-2022 End: 07-05-2022 ambulatory DIRECTORY OPERATOR CARMEN KERVINSTACEYZ Facility:[facility] Start: 06-29-2022 End: 06-30-2022 ambulatory DIRECTORY OPERATOR CARMEN KERVINSTACEYZ Facility:[facility] Start: 06-25-2022 End: 06-26-2022 ambulatory DIRECTORY OPERATOR CARMEN KERVINSTACEYZ Facility:[facility] Start: 05-10-2022 End: 05-11-2022 ambulatory STACY JEFFERSON . Facility:[facility] Procedures Date Procedure Procedure Detail Performing Clinician Start: 08-27-2023 X-ray of cervical spine Start: 04-18-2023 Colonoscopy Plan of Treatment Date Care Activity Detail Author Start: 05-02-2023 ambulatory Ambulatory Facility:[facility] Start: 04-18-2023 [facility] Patient Education Hemorrhoids (DC) [facility] Work Phone: Payers Date Payer Category Payer Self-pay [id number] 2014 Unknown [id number] 1970 Unknown [id number] 2.16.8 40.1.697562.3.579.2.727 1970 Unknown [id number] 2.16.84 0.1.573037.3.579.2.593 1970 Unknown [id number] 2.16.84 0.1.137989.3.579.2.593 1970 Unknown [id number] 2.16.84 0.1.710264.3.579.2.593 1970 Unknown [id number] 2.16.84 0.1.617852.3.579.2.593 1970 Unknown [id number] .16.84 0.1.858492.3.579.2.593 1970 Unknown [id number] .16.84 0.1.024929.3.579.2.593 1970 Unknown [id number] .16.84 0.1.770803.3.579.2.593 1970 Unknown [id number] 2.16.84 0.1.817328.3.579.2.593 1970 Unknown [id number] .16.84 0.1.619823.3.579.2.593 1970 Unknown [id number] .16.84 0.1.639214.3.579.2.593 1969 Unknown [id number] .16.84 0.1.708567.3.579.2.593 1970 Unknown [id number] .16.84 0.1.593466.3.579.2.593 1969 Unknown [id number] .16.84 0.1.897258.3.579.2.593 1969 Unknown [id number] .16.84 0.1.179626.3.579.2.593 1969 Unknown [id number] .16.84 0.1.604842.3.579.2.593 1970 Unknown [id number] 2.16.84 0.1.385362.3.579.2.593 1970 Unknown [id number] 2.16.84 0.1.858083.3.579.2.593 1970 Unknown [id number] 2.16.84 0.1.609672.3.579.2.593 1969 Unknown [id number] 2.16.84 0.1.972483.3.579.2.593 1970 Unknown [id number] 2.16.84 0.1.953463.3.579.2.593 1970 Unknown [id number] 2.16.84 0.1.526905.3.579.2.593 1970 Unknown [id number] 2.16.84 0.1.062766.3.579.2.593 1970 Unknown [id number] 2.16.84 0.1.309670.3.579.2.593 1969 Unknown [id number] 2.16.84 0.1.170994.3.579.2.593 1970 Unknown [id number] 2.16.84 0.1.787724.3.579.2.9 1970 Unknown [id number] 2.16.84 0.1.165165.3.579.2.1258 1970 Unknown [id number] 2.16.84 0.1.724683.3.579.2.1259 1970 Unknown [id number] 2.16.84 0.1.216847.3.579.2.1258 1970 Unknown [id number] .16.840 .1.501392.3.579.2.9 1960 Medicaid [id number] 1960 Medicare [id number] Medicare Medicare Outpatient [id number] Unknown [id number] 2.16.8 40.1.378009.3.579.2.531 Unknown [id number] 2.16.8 40.1.763586.3.579.2.531 Social History Date Type Detail Facility Sex Assigned At [employer] [facility] [employer] Other Start: 04-18-2023 End: 04-18-2023 Tobacco smoking status NHIS Ex-smoker (finding) [facility] Start: 1970 Sex Assigned At Male F [facility] Goals Date Patient Goal Desired Activity [...] Carpal tunnel syndrome, left (ICD-10 - G56.02) [facility] Other 08-29-2023 Evaluation note* Encounter Date Diagnosis Assessment Notes Treatment Notes Treatment Clinical Notes May, Diarrhea (ICD-10 - R19.7) May, Exocrine pancreatic insufficiency (ICD-10 - K86.81) [facility] Other 07-[facility]23 [facility]* Encounter Date Diagnosis Assessment Notes Treatment Notes Treatment Clinical Notes February, Diarrhea (ICD-10 - R19.7) February, Pancreatic insufficiency (ICD-10 - K86.89) February, Weight loss (ICD-10 - R63.4) [facility] Other 04-20-2023 NoteCONSULTATION CONSULTATION DATE: 01/31/2023 TO: [...] our patients to inform us about any fesa-lks-tyvzoqj medications or herbal remedies/nutritional supplements/alternative remedies. 2. [...] treatment options with their primary care provider.[id number] Note CONSULTATION CONSULTATION DATE: 11/01/2022 HISTORY OF [...] otherwise indicated. Patient agrees with this plan.[facility] [id number] Note CONSULTATION CONSULTATION DATE: 09/27/2022 HISTORY OF [...] be followed up in the clinic thereafter.[facility] 09-12-2022 NoteCONSULTATION CONSULTATION DATE: 09/12/2022 HISTORY [...] of care and all questions were answered.[facility] [id number] NoteCONSULTATION PROCEDURE DATE: 08/09/2022 PREOPERATIVE DIAGNOSIS: Bilateral [...] in the clinic in three months' time.[facility] [id number] NoteCONSULTATION CONSULTATION DATE: 08/09/2022 HISTORY OF PRESENT [...] and patient is in agreement with this.[facility] 05-10-2022 NoteCONSULTATION CONSULTATION DATE: 05/10/2022 HISTORY [...] otherwise indicated. Patient agrees with the plan.[facility] Evaluation noteNo assessment information availableWood [facility] Work Phone: History and physical note Author Jhon Medina [facility] April 18, 2023 1:56pm Note Date/Time April 18, 2023 1:56p m [facility] [address] [place] [address] Gastroenterology H&P Signed Patient: Kalani Asencio MR#: [id number] : 1970 Acct:[id number] Age/Sex: 53 / M Adm Date: 3 Loc: Room: Type: [facility] Attending Dr: Jhon Medina MD Copies [...] signed by Jhon Medina MD> 04/18/23 1356 [facility] Work Phone: [facility] Narrative - Reported* Type Description Date Medical History Asthma Medical History Depression Medical History Seasonal Allergies Medical History seizure disorder Surgical History Back surgery 2009 Surgical History bilat knee surgies 2008 [employer] Other [facility] Narrative - Reported* Type Description Date Medical History Asthma Medical History Depression Medical History Seasonal Allergies Medical History seizure disorder Medical History anxiety Surgical History Back surgery 2009 Surgical History bilat knee surgies 2008 Hospitalization History see above [employer] Other Hospital Discharge instructions Additional Instructions DISCHARGE [...] scheduled -Follow up with PCP. -Office number [phone]. [facility] Work Phone: Reason for visit NarrativePATIENT IS HERE FOR DIARRHEA AND PANCREATIC INSUFFICIENCY AT THE REQUEST OF CARMEN PRATT. RECENT TESTING IN REFERRAL [facility] Other Summary Purpose Family History No Family [...] March 05 9 8:18am Hospital Course Note [facility] SURGERY Clinical Discharge Summary PERSON INFORMATION Name KALANI ASENCIO Age 50 Years 1970 Sex MALE Language Filipino PCP Marcia Rodriguez DO Marital Status Med Service Pain Management Surgery Acct# Arrival 03/30/2020 08:43:00 Visit Reason Low back pain Acuity LOS 006 00:00 Address: [address] [place] [address] Comment: PROVIDER INFORMATION VITALS INFORMATION Vital Sign [...] history): All Problems Depression / SNOMED CT 684031721 / Confirmed Asthma / SNOMED CT 583136469 / Confirmed Chronic maxillary sinusitis / SNOMED CT 49316489 / Confirmed Epileptic seizures / SNOMED CT 553129770 / Confirmed Lumbago / SNOMED CT 696643391 / Confirmed Lumbar spondylosis / SNOMED CT 633042314 / Confirmed Physical Examination VS/Measurements Vital Signs [...] history): All Problems Depression / SNOMED CT 128746352 / Confirmed Asthma / SNOMED CT 999134762 / Confirmed Chronic maxillary sinusitis / SNOMED CT 55337870 / Confirmed Epileptic seizures / SNOMED CT 489302422 / Confirmed Lumbago / SNOMED CT 577726337 / Confirmed Lumbar spondylosis / SNOMED CT 662738230 / Confirmed Physical Examination VS/Measurements Vital Signs [...] 1 Cervical pain (neck) (M54.2) Referral Organization [facility] urosurgery Referring Provider First Name Jemal Referring Provider Last Name Ho Referring Provider Specialty Neurologica l Surgery Referred [facility] Referred Provider Tori Sanchez Referred Address [address], [place],[address] Referred Provider Specialty Pain Medicin e Referral Priority Routine Additional Source Comments (unrecognized sect ion and content) No Status Records FoundNo Status Records FoundNo Status Records FoundNo Status Records FoundNo Status Records Found INFORMATION SOURCE (unrecogn ized section and content) DATE CREATED AUTHOR 04/30/2020 [facility] DATE CREATED AUTHOR AUTHOR'S ORGANIZ ATION 08/07/2022 [facility] DATE CREATED AUTHOR AUTHOR'S ORGANIZ ATION [facility] [facility] DATE CREATED AUTHOR AUTHOR'S ORGANIZ ATION 11/22/2023 [facility] DATE CREATED AUTHOR AUTHOR'S ORGANIZ ATION 04/07/2024 [facility] [employer] Care Teams (unrecognized [...] BE BASED ON THE PRIMARY CLINICAL RECORDS. [facility]. provides no warranty or guarantee of the accuracy or completeness of information in this document.
[2024-04-10 07:28] LABS: Bilirubin Urine NEGATIVE (NEGATIVE); Blood Urine NEGATIVE (NEGATIVE); Clarity Urine CLEAR (CLEAR); Color Urine LT. YELLOW (YELLOW); Glucose Urine UA NEGATIVE (NEGATIVE); Ketones Urine NEGATIVE (NEGATIVE); Leukocyte Esterase Urine NEGATIVE (NEGATIVE); Nitrite Urine NEGATIVE (NEGATIVE); Protein Urine NEGATIVE (NEG/TRACE); Urobilinogen Urine 0.2 EU/dL (0.2-1.0); pH Urine 6.5 (5.0-9.0)
[2024-04-10 07:29] LABS: Urine Microscopic Indicated NO
[2024-04-10 07:37] LABS: Anion Gap 10.8; BUN Creatinine Ratio 5.7; Calcium 8.8 mg/dL (8.5-10.1); Carbon Dioxide 29.7 mmol/L (21.0-32.0); Chloride 107 mmol/L (98-107); Estimated GFR (African America >60 (>=60); Estimated GFR (Non-African Ame >60 (>=60); Glucose 98 mg/dL (74-106); Potassium 3.5 mmol/L (3.5-5.1); Sodium 144 mmol/L (136-145)
== END 2024-04-10 07:12 | disposition home or self-care (01) ==
LOC: LAB 07:13
PROVIDERS: PCP Nurse Practitioner; Visit Provider Nurse Practitioner
DX: R73.09 Other abnormal glucose (principal); R35.0 Frequency of micturition
CPT/HCPCS: 36415; 80048; 81003; 87086

== ENCOUNTER 2024-04-28 09:50 | Day surgery (SDC) | payer MEDICARE, MEDICAID, SELFPAY ==
[2024-04-28 10:39] VITALS: BP 124/76; PULSE 64; TEMP 36.9; O2SAT 98
[2024-04-28 10:42] LABS: Glucometer 102 mg/dL (74-106)
[2024-04-28 11:23] VITALS: BP 121/72; PULSE 54; O2SAT 98
[2024-04-28 11:24] VITALS: BP 124/74; PULSE 54; O2SAT 97
[2024-04-28] MEDS: BUPIVACAINE HCL 0.25% PF 25 MG/10 ML VIAL 5 ML INJ (11:28)
--- NOTE | 2024-04-28 11:37 | P.ON_ITS ---
Date of procedure: 04/28/24 Pre-op diagnosis: lumbar spondylosis Post-op diagnosis: same as pre-op Procedure: Bilateral Lumbar 1/2, 2/3 medial branch block Preop diagnosis includes pain secondary to spondylosis, Postop diagnosis same Under fluoroscopic guidance Solution injected: 2milliliters Marcaine 0.25% Anesthesia :none Immediate complications none Time out process compliant After informed consent obtained from the patient placed in the [employer] proposition . area was prepped and draped in a sterile fashion using betadine .25 gauge spinal needle inserted over each of the above mentioned target areas . [place] were directed towards the target under fluoroscopic guidance . after encountering each of the targets , no indication of intravascular intraneuronal or intrathecal needle tip placement. Then 0 .5 to 1 Milliliter was injected at each level. [place] removed postoperatively. patient transferred to recovery in stable condition to be discharged home after meeting criteria Anesthesia: Local Surgeon: Esteban Sanchez Condition: stable
== END 2024-04-28 11:32 | disposition home or self-care (01) ==
LOC: SURGOUT 09:51
PROVIDERS: PCP Nurse Practitioner; Visit Provider Anesthesiology Pain Medicine
DX: M47.816 Spondylosis without myelopathy or radiculopathy, lumbar region (principal); Z79.899 Other long term (current) drug therapy
CPT/HCPCS: 36415; 64493; 64494; 82948; J0665

== ENCOUNTER 2024-04-29 11:06 | Outpatient (OUT) | payer MEDICARE, MEDICAID, SELFPAY ==
--- OUTSIDE RECORDS SUMMARY | 2024-04-29 11:18 | XMS_ITS | CCD ---
[facility] Care Team Providers Care [employer] Manager Name Role Phone FELISA, CARMEN CARMEN J Referring UnavailTarsha Mccrary Attending Unavailable AICHHOLZ, DBA DEVELOPER CARMEN Consulting Unavailable AICHHOLZ, DBA DEVELOPER CARMEN Primary Care Unavailable AICHHOLZ, DBA DEVELOPER CARMEN Admitting Unavailable AICHHOLZ, DBA DEVELOPER CARMEN Attending Unavailable GALO ., DR HANY Holder Admitting Unavailable GALO ., DR HANY Holder Attending Unavailable AICHHOLZ, DBA DEVELOPER CARMEN Primary Care Unavailable JEFFERSON ., STACY Consulting Unavailable JEFFERSON ., STACY Consulting Unavailable GALO ., DR HANY Holder Admitting Unavailable GALO ., DR HANY Holder Attending Unavailable AICHHOLZ, DBA DEVELOPER CARMEN Primary Care Unavailable JEFFERSON ., STACY Admitting Unavailable JEFFERSON ., STACY Attending Unavailable AICHHOLZ, DBA DEVELOPER CARMEN Primary Care Unavailable WEST, DR JARETT Long Consulting Unavailable JEFFERSON ., STACY Consulting Unavailable AICHHOLZ, DBA DEVELOPER CARMEN Primary Care Unavailable AICHHOLZ, DBA DEVELOPER CARMEN Admitting Unavailable AICHHOLZ, DBA DEVELOPER CARMEN Attending Unavailable AICHHOLZ, DBA DEVELOPER CARMEN Consulting Unavailable ALBERTO REDMAN Consulting Unavailable JEFFERSON ., STACY Consulting Unavailable GALO ., DR HANY Holder Admitting Unavailable GALO ., DR HANY Holder Attending Unavailable AICHHOLZ, DBA DEVELOPER CARMEN Primary Care Unavailable JEFFERSON ., STACY Consulting Unavailable GALO ., DR HANY Holder Admitting Unavailable GALO ., DR HANY Holder Attending Unavailable AICHHOLZ, DBA DEVELOPER CARMEN Primary Care Unavailable AICHHOLZ, DBA DEVELOPER CARMEN Consulting Unavailable AICHHOLZ, DBA DEVELOPER CARMEN Primary Care Unavailable AICHHOLZ, DBA DEVELOPER CARMEN Admitting Unavailable AICHHOLZ, DBA DEVELOPER CARMEN Attending Unavailable AICHHOLZ, DBA DEVELOPER CARMEN Admitting Unavailable AICHHOLZ, DBA DEVELOPER CARMEN Primary Care Unavailable AICHHOLZ, DBA DEVELOPER CARMEN Attending Unavailable AICHHOLZ, DBA DEVELOPER CARMEN Consulting Unavailable AICHHOLZ, DBA DEVELOPER CARMEN Consulting Unavailable AICHHOLZ, DBA DEVELOPER CARMEN Primary Care Unavailable AICHHOLZ, DBA DEVELOPER CARMEN Attending Unavailable AICHHOLZ, DBA DEVELOPER CARMEN Admitting Unavailable LOWE, DAVID Admitting Unavailable LOWE, DAVID Attending Unavailable AICHHOLZ, DBA DEVELOPER CARMEN Primary Care Unavailable DR NOEMÍ MORRISON Consulting Unavailable LOWE, DAVID Consulting Unavailable AICHHOLZ, DBA DEVELOPER CARMEN Primary Care Unavailable AICHHOLZ, DBA DEVELOPER CARMEN Attending Unavailable AICHHOLZ, DBA DEVELOPER CARMEN Consulting Unavailable AICHHOLZ, DBA DEVELOPER CARMEN Admitting Unavailable AICHHOLZ, DBA DEVELOPER CARMEN Consulting Unavailable AICHHOLZ, DBA DEVELOPER CARMEN Primary Care Unavailable AICHHOLZ, DBA DEVELOPER CARMEN Attending Unavailable AICHHOLZ, DBA DEVELOPER CARMEN Admitting Unavailable JARETT JARVIS Unavailable JESSE, APOORVA Admitting Unavailable JESSE, APOORVA Attending Unavailable AICHHOLZ, DBA DEVELOPER CARMEN Primary Care Unavailable JESSE, APOORVA Consulting Unavailable LAKSHMIPATHY ., NARENDRANATH Admitting Letty vailable LAKSHMIPATHY ., NARENDRANATH Attending Letty vailable AICHHOLZ, DBA DEVELOPER CARMEN Primary Care Unavailable COURTNEY STERLING Consulting Unavailable DR JARETT GARCÍA V Consulting Unavailable AICHHOLZ, DBA DEVELOPER CARMEN Primary Care Unavailable AICHHOLZ, DBA DEVELOPER CARMEN Admitting Unavailable AICHHOLZ, DBA DEVELOPER CARMEN Attending Unavailable AICHHOLZ, DBA DEVELOPER CARMEN Consulting Unavailable AICHHOLZ, DBA DEVELOPER CARMEN Consulting Unavailable AICHHOLZ, DBA DEVELOPER CARMEN Admitting Unavailable AICHHOLZ, DBA DEVELOPER CARMEN Attending Unavailable AICHHOLZ, DBA DEVELOPER CARMEN Primary Care Unavailable ILYA, NERI Admitting Unavailable ILYA, NERI Attending Unavailable AICHHOLZ, DBA DEVELOPER CARMEN Primary Care Unavailable ILYA, NERI Consulting Unavailable DANIELLE KWONG Consulting Unavailable AICHHOLZ, DBA DEVELOPER CARMEN Consulting Unavailable AICHHOLZ, DBA DEVELOPER CARMEN Primary Care Unavailable AICHHOLZ, DBA DEVELOPER CARMEN Admitting Unavailable AICHHOLZ, DBA DEVELOPER CARMEN Attending Unavailable DR NOEMÍ MORRISNO Consulting Unavailable STACY MABRY Consulting Unavailable KIARRA ., DR HANY Holder Admitting Unavailable KIARRA ., DR HANY Holder Attending Unavailable AICHHOLZ, DBA DEVELOPER CARMEN Primary Care Unavailable GALO ., DR HANY Holder Consulting Unavailable KIARRA ., DR HANY Holder Admitting Unavailable GALO ., DR HANY Holder Attending Unavailable AICHHOLZ, DBA DEVELOPER CARMEN Primary Care Unavailable KARINA ., ELIAS Admitting Unavailable KARINA ., ELIAS Attending Unavailable AICHHOLZ, DBA DEVELOPER CARMEN Primary Care Unavailable KARINA ., ELIAS Consulting Unavailable CATHY DE PAZ Consulting Unavaila ble AICHHOLZ, DBA DEVELOPER CARMEN Primary Care Unavailable WEST, DR JARETT Long Consulting Unavailable AICHHOLZ, DBA DEVELOPER CARMEN Admitting Unavailable AICHHOLZ, DBA DEVELOPER CARMEN Attending Unavailable AICHHOLZ, DBA DEVELOPER CARMEN Consulting Unavailable HALKER ., COURTNEY Consulting Unavailable LAKSHMIPATHY ., NARENDRANATH Admitting Letty vailable LAKSHMIPATHY ., NARENDRANATH Attending Letty vailable AICHHOLZ, DBA DEVELOPER CARMEN Primary Care Unavailable Asaad, Imad Unavailable NON STAFF Primary Care Provider UnavailMD Jhon Campbell Attending Provider NON STAFF Primary Care Provider UnavailMD Jemal Conteh Attending Provider [phone] Jemal Teague Unavailable NON STAFF Primary Care [...] sources) Latex Drug allergy (disorder) 6 Rash [facility] Repository (3 sources) venom-honey bee; Translations: [venom-honey bee] Allergy to substance 3 Anaphylaxis [facility] (1 source) Latex Drug allergy Unknown [facility] Other (1 source) Bee Sting Drug allergy Unknown [facility] Other (1 source) Latex Drug allergy (disorder) 3 [facility] Repository (1 source) bee venom protein (honey bee) Drug allergy (disorder) 3 [facility] Repository Medications Current Medications Medication Drug Class(es) Dates Sig (Normalized) Sig (Original) Albuterol (5 sources) beta2-Adrenergic Agonist Start: 03-11-2019 Albuterol Sulfate Active 2 PUFF INHALATION As Directed March 10, 2019 11:00pm Start: 03-11-2019 Albuterol Sulf ate Active 2 PUFF INHALATION As Directed March 11, 2019 12:00am Albuterol Active amylase 113908 unt / lipase 59571 unt / protease 54530 unt delayed release oral capsule (5 sources) Start: 04-18-2023 take 54136-27998 capsules by mouth three times daily Xzdgfv-Olmayjcw-Bymibno (Creon) 24,000-76,000 -120,000 unit capsule,delayed release(DR/EC) Active 1 CAP PO Three times daily April 17, 2023 11:00pm biotin 10 mg oral capsule (2 sources) Start: 04-18-2023 take 51427 ug by mouth once daily at bedtime Biotin Active 48845 MCG PO Daily at bedtime April 17, [...] April 17, 2023 11:00pm polyethylene glycol 3350 480796 mg / potassium chloride 2970 mg / sodium bicarbonate 6740 mg / sodium chloride 5860 mg / sodium sulfate 90386 mg powder for oral solution (3 sources) [...] 07-30-2022 Episodic Other aftercare (1 source) Other group home (current) drug therapy; Translations: [[employer] CURRENT DRUG THERAPY] Onset: 09-13-2022 Episodic Other [...] on 08-27-2023 XR cervical spine w flex/ext [facility] Main [place] [id number] XRay Report Signed Patient: Kalani Asencio MR#: [id number] 6 : 1970 Acct:[id number] Age/Sex: 53 / M ADM Date: 08/27/23 Loc: XD Room: Type: [facility] Attending Dr: Jemal Teague MD Copies [...] Hill Jr., DKaileyOKailey08/27/2023 4:23 PM Dictation Location: [place] [address] Transcribed By: [facility] 08/27/231622 Dictated By: Andi Hill Jr, DO 08/27/231621 Signed By: 08/27/231622 [facility] Rafael 04-18-2023 L - -------- Specimen: [id number] Received: 04/19/23 Status: ANUM Castillo Num: [id number] Spec Type: Surgical Subm Dr: Jhon Medina MD Tissues: A Colon Biopsy (RANDOM COLON BX) Procedures: HE/2, Gross/Micro L4 -------- Age/ Patient Sex Location Account Attending Physician -------- Kalani Asencio/[facility] [id number] Jhon Medina MD -------- SPEC NUM: [id number] RECD: 04/19/23 STATUS: ANUM CASTILLO NUM: [id number] LELE: 04/18/23- [facility] DR: Jhon Medina MD ENTERED: 04/19/23 [facility] DR: LUCY TYPE: Surgical [...] microscopic examination confirms the diagnosis. CPT Codes 80012 -------- -------- Specimen: [id number] Received: 04/19/23 Status: ANUM Castillo Num: [id number] Spec Type: Surgical Subm Dr: Jhon Medina MD Tissues: A Colon Biopsy (RANDOM COLON BX) Procedures: DANY/Camilo Gross/Yolanda L4 -------- Patient: Kalani Asencio [id number] (Continued) -------- Signed (signature on file) Warren De La O MD 04/22/23 [id number] Normal [facility] AMYLASEon 03-12-2023 Amylase [Catalytic activity/Vol] 42 U/L Normal 25-[address] [facility] Comment on above: Performed By: #### T SH, LIPA, CMP, CHILANGO ####[facility] [address] [place], [place] [address]IrDr. Rakel Fraga CBC AUTO DIFFon 03-12-2023 BASO # 0.0 103/ul Normal 0.0-0.1 [facility] Comment on above: Performed By: #### U AMIC #### [facility] [address] [address] [address] Rakel Fraga Basophils/100 WBC (Bld) 0.4 % Normal 0.2-2.0 [facility] Comment on above: Performed By: #### U AMIC #### [facility] [address] [address] [address] Rakel Fraga EO # 0.8 103/ul Critically high 0.0-0.7 [facility] Comment on above: Performed By: #### U AMIC #### [facility] [address] [address] [address] Rakel Fraga Eosinophils/100 WBC (Bld) 8.8 % Critically high 0.9-7.0 [facility] Comment on above: Performed By: #### U AMIC #### [facility] [address] [address] [address] Rakel Fraga Erythrocyte distribution width (RBC) [Ratio] 13.0 % Normal 11.0-15.0 [facility] Comment on above: Performed By: #### U AMIC #### [facility] [address] [address] [address] Rakel Fraga Hematocrit (Bld) [Volume fraction] 44.1 % Normal 42.0-54.0 [facility] Comment on above: Performed By: #### U AMIC #### [facility] [address] [address] [address] Rakel Fraga Hemoglobin (Bld) [Mass/Vol] 14.2 g/dL Normal 14.0-18.[address] [facility] Comment on above: Performed By: #### U AMIC #### [facility] [address] [address] [address] Rakel Fraga IG # 0.02 10e3/ul Normal 0.00-0.03 [facility] Comment on above: Performed By: #### U AMIC #### [facility] [address] [address] [address] Rakel Fraga IG % 0.2 % Normal 0.0-0.5 [facility] Comment on above: Performed By: #### U AMIC #### [facility] [address] [address] [address] Rakel Fraga LYMPH # 1.9 103/ul Normal 1.2-3.8 [facility] Comment on above: Performed By: #### U AMIC #### [facility] [address] [place] [address] [address] Rakel Fraga Lymphocytes/100 WBC (Bld) 20.1 % Critically low 20.5-60.0 [facility] Comment on above: Performed By: #### U AMIC #### [facility] [address] [address] [address] Rakel Fraga MANUAL DIFF REQ NO Normal [facility] Comment on above: Performed By: #### U AMIC #### [facility] [address] [place] [address] [address] Rakel Fraga MCH (RBC) [Entitic mass] 29.8 pg Normal 25.9-34.0 [facility] Comment on above: Performed By: #### U AMIC #### [facility] [address] [address] [address] Rakel Fraga MCHC (RBC) [Mass/Vol] 32.2 g/dL Normal 29.9-35.2 [facility] Comment on above: Performed By: #### U AMIC #### [facility] [address] [address] [address] Rakel Fraga MCV (RBC) [Entitic vol] 92.5 fL Normal 80.0-94.0 [facility] Comment on above: Performed By: #### U AMIC #### [facility] [address] [address] [address] Rakel Fraga MONO # 0.5 103/ul Normal 0.3-0.8 [facility] Comment on above: Performed By: #### U AMIC #### [facility] [address] [place] [address] [address] Rakel Fraga Monocytes/100 WBC (Bld) 5.0 % Normal 1.7-12.0 [facility] Comment on above: Performed By: #### U AMIC #### [facility] [address] [place] [address] [address] Rakel Fraga NEUT # 6.0 103/ul Normal 1.4-6.5 [facility] Comment on above: Performed By: #### U AMIC #### [facility] [address] [place] [address] Dr. Rakel Fraga Neutrophils/100 WBC (Bld) 65.5 % Normal 43.0-75.0 [facility] Comment on above: Performed By: #### U AMIC #### [facility] [address] [place] [address] [address] Rakel Fraga Platelet mean volume (Bld) [Entitic vol] 9.4 fL Critically low 9.5-13.5 [facility] Comment on above: Performed By: #### U AMIC #### [facility] [address] [place] [address] [address] Rakel Fraga PLT 284 103/ul Normal 150-[address] [facility] Comment on above: Performed By: #### U AMIC #### [facility] [address] [place] [address] [address] Rakel Fraga RBC 4.77 106/ul Normal 4.70-6.[address] [facility] Comment on above: Performed By: #### U AMIC #### [facility] [address] [place] [address] [address] Rakel Fraga WBC 9.2 103/ul Normal 4.0-11.[address] [facility] Comment on above: Performed By: #### U AMIC #### [facility] [address] [place] [address] DrKailey Fraga LIPASEon 03-12-2023 Lipase [Catalytic activity/Vol] 76.0 U/L Normal 73.0-393.0 [facility] Comment on above: Performed By: #### T SH, LIPA, CMP, CHILANGO ####[facility] [address] [place] [address]Dr. Rakel Fraga PROF 14(COMP METB)on 023 Albumin [Mass/Vol] 3.4 g/dL Normal 3.4-5.0 [facility] Comment on above: Performed By: #### T SH, LIPA, CMP, CHILANGO ####[facility] [address] [place] [address]DrKailey Fraga Albumin/Globulin [Mass ratio] 0.8 {ratio} Normal [facility] Comment on above: Performed By: #### T SH, LIPA, CMP, CHILANGO ####[facility] [address] [place] [address]Dr. Rakel Fraga ALP [Catalytic activity/Vol] 159 U/L Critically high 46-116 [facility] Comment on above: Performed By: #### T SH, LIPA, CMP, CHILANGO ####[facility] [address] [place] [address]Dr. Rakel Fraga ALT [Catalytic activity/Vol] 24 U/L Normal 16-63 [facility] Comment on above: Performed By: #### T SH, LIPA, CMP, CHILANGO ####[facility] [address] [place] [address]Dr. Rakel Fraga Anion gap [Moles/Vol] 12.2 mmol/L Normal [facility] Comment on above: Performed By: #### T SH, LIPA, CMP, CHILANGO ####[facility] [address] [place] [address]Dr. Rakel Fraga AST [Catalytic activity/Vol] 16 U/L Normal 15-37 [facility] Comment on above: Performed By: #### T SH, LIPA, CMP, CHILANGO ####[facility] [address] [place] [address]Dr. Rakel Fraga Bilirubin [Mass/Vol] 0.2 mg/dL Normal 0.2-1.[address] [facility] Comment on above: Performed By: #### T SH, LIPA, CMP, CHILANGO ####[facility] [address] [place] [address]Dr. Rakel Fraga Calcium [Mass/Vol] 8.9 mg/dL Normal 8.5-10.1 [facility] Comment on above: Performed By: #### T SH, LIPA, CMP, CHILANGO ####[facility] [address] [place] [address]Dr. Rakel Fraga Chloride [Moles/Vol] 105 mmol/L Normal 98-[address] [facility] Comment on above: Performed By: #### T SH, LIPA, CMP, CHILANGO ####[facility] [address] [place], [place] [address]Dr. Rakel Fraga CO2 [Moles/Vol] 28.7 mmol/L Normal 21.0-32.0 [facility] Comment on above: Performed By: #### T SH, LIPA, CMP, CHILANGO ####[facility] [address] [place], [place] [address]Dr. Rakel Fraga Creatinine [Mass/Vol] 1.27 mg/dL Normal 0.70-1.[address] [facility] Comment on above: Performed By: #### T SH, LIPA, CMP, CHILANGO ####[facility] [address] [place], [place] [address]Dr. Raekl Fraga EGFR-AF TRISTANIAN >60 Normal >=60 [facility] Comment on above: Performed By: #### T SH, LIPA, CMP, CHILANGO ####[facility] [address] [place], [place] [address]Dr. Rakel Fraga EGFR-NON AF TRISTANIAN 59 mL/min/1.73m2 Critically low >=[address] [facility] Comment on above: Performed By: #### T SH, LIPA, CMP, CHILANGO ####[facility] [address] [place] [address]Dr. Rakel Fraga Globulin (S) [Mass/Vol] 4.4 g/dL Normal [facility] Comment on above: Performed By: #### T SH, LIPA, CMP, CHILANGO ####[facility] [address] [place] [address]Dr. Rakel Fraga Glucose [Mass/Vol] 95 mg/dL Normal 74-106 [facility] Comment on above: Performed By: #### T SH, LIPA, CMP, CHILANGO ####[facility] [address] [place] [address]Dr. Rakel Fraga Potassium [Moles/Vol] 3.9 mmol/L Normal 3.5-5.[address] [facility] Comment on above: Performed By: #### T SH, LIPA, CMP, CHILANGO ####[facility] [address] [place], [place] [address]Dr. Rakel Fraga Protein [Mass/Vol] 7.8 g/dL Normal 6.4-8.2 [facility] Comment on above: Performed By: #### T SH, LIPA, CMP, CHILANGO ####[facility] [address] [place], [place] [address]Dr. Rakel Fraga Sodium [Moles/Vol] 142 mmol/L Normal 136-145 [facility] Comment on above: Performed By: #### T SH, LIPA, CMP, CHILANGO ####[facility] [address] [place], [place] [address]Dr. Rakel Fraga Urea nitrogen [Mass/Vol] 14.0 mg/dL Normal 7.0-18.[address] [facility] Comment on above: Performed By: #### T SH, LIPA, CMP, CHILANGO ####[facility] [address] [place], [place] [address]Dr. Rakel Fraga Urea nitrogen/Creatinine [Mass ratio] 11.0 mg/mg Normal [facility] Comment on above: Performed By: #### T SH, LIPA, CMP, CHILANGO ####[facility] [address] [place] [address]Dr. Rakel Fraga SED RATE [facility] 2022 SED RATE 17 mm/hr Normal <=[address] [facility] Comment on above: Performed By: #### U AMIC #### [facility] [address] [place] [address] Dr. Rakel Fraga TSHon 03-12-2023 TSH 0.793 uIU/mL Normal 0.358-3.740 [facility] Comment on above: Performed By: #### T SH, LIPA, CMP, CHILANGO ####[facility] [address] [place] [address]Dr. Rakel Fraga UA RANDOM W/MICROSCOPICon BACTERIA NONE SEEN Normal NONE SEEN [facility] Comment on above: Performed By: #### B MP #### [facility] [address] [place] [address] Dr. Rakel Fraga Bilirubin Ql (U) Negative Normal NEGATIVE [facility] Comment on above: Performed By: #### B MP #### [facility] [address] [place] [address] Dr. Rakel Fraga CAST NONE SEEN Normal NONE SEEN [facility] Comment on above: Performed By: #### B MP #### [facility] [address] [place] [address] Dr. Rakel Fraga Clarity (U) CLEAR Normal CLEAR [facility] Comment on above: Performed By: #### B MP #### [facility] [address] [place] [address] Dr. Rakel Fraga Color (U) LT. YELLOW Normal YELLOW [facility] Comment on above: Performed By: #### B MP #### [facility] [address] [place] [address] Dr. Rakel Fraga Crystals LM Nom (Urine sed) NONE SEEN Normal NONE SEEN [facility] Comment on above: Performed By: #### B MP #### [facility] [address] [place] [address] Dr. Rakel Fraga Epithelial cells LM Ql (Urine sed) NONE SEEN Normal NONE SEEN /RARE [facility] Comment on above: Performed By: #### B MP #### [facility] [address] [place] [address] Dr. Rakel Fraga Glucose Ql (U) Negative Normal NEGATIVE [facility] Comment on above: Performed By: #### B MP #### [facility] [address] [place] [address] Dr. Rakel Fraga Hemoglobin Ql (U) Negative Normal NEGATIVE [facility] Comment on above: Performed By: #### B MP #### [facility] [address] [address] [address] Rakel Fraga Ketones Ql (U) Negative Normal NEGATIVE [facility] Comment on above: Performed By: #### B MP #### [facility] [address] [address] [address] Rakel Fraga LEUKOCYTES Negative Normal NEGATIVE [facility] Comment on above: Performed By: #### B MP #### [facility] [address] [place] [address] Dr. Rakel Fraga MUCOUS NONE SEEN Normal NONE SEEN [facility] Comment on above: Performed By: #### B MP #### [facility] [address] [place] [address] Dr. Rakel Fraga Nitrite Ql (U) Negative Normal NEGATIVE [facility] Comment on above: Performed By: #### B MP #### [facility] [address] [place] [address] Dr. Rakel Fraga pH (U) 5.5 [pH] Normal 5-9 [facility] Comment on above: Performed By: #### B MP #### [facility] [address] [place] [address] Dr. Rakel Fraga RBC 0-2 Normal 0-2 [facility] Comment on above: Performed By: #### B MP #### [facility] [address] [place] [address] Dr. Rakel Fraga SPEC GRAVITY >=1.030 Abnormal 1.005-<=1.025 [facility] Comment on above: Performed By: #### B MP #### [facility] [address] [place] [place] [address] Dr. Rakel Fraga UA PROTEIN Negative Normal NEGATIVE/ TRACE [facility] Comment on above: Performed By: #### B MP #### [facility] [address] [place] [address] Dr. Rakel Fraga Urobilinogen Qn (U) 0.2 {Arnoldo'U}/dL Normal 0.2 - 1. [address] [facility] Comment on above: Performed By: #### B MP #### [facility] [address] [place] [address] Dr. Rakel Fraga WBC NONE SEEN Normal NONE SEEN [facility] Comment on above: Performed By: #### B MP #### [facility] [address] [place] [address] Dr. Rakel Fraga XR KUB 1 VIEWon 03-12-2023 XR KUB 1 VIEW EXAMINATION: XR KUB 1 VIEW HISTORY: Abdominal pain COMPARISON: 02/23/2020 FINDINGS: BOWEL GAS PATTERN: No abnormal dilation or deviation. CALCIFICATIONS: None significant. OTHER: Negative. No abnormal gaseous collections. IMPRESSION: Normal bowel gas pattern Electronically authenticated by: JARETT GARCÍA Date: 2023-03-12 14:[address] [facility] Covid-19 PCR (CVDTB)on SARS-CoV-2 (COVID-19) RNA SHADIA+probe Ql (Unsp spec) Not detected Normal NOT DETECTED [facility] Comment on above: Result Comment: This test is not yet approved or cleared by the [place] FDA. When there are no FDA-approved or cleared tests available, and other criteria are met, FDA can make tests available under an emergency access mechanism called an Emergency Use Authorization (EUA). The EUA for this test is supported by the [employer] and Human Service's (HHS's) declaration [...] SARS-CoV-2. Performed By: #### B MP #### [facility] [address] [place] [address] Dr. Rakel Fraga INFLUENZA A AND B AGon 01-14 INFLUANEGH SEE BELOW Normal [facility] Comment on above: Result Comment: Nega tive for Flu A protein angiten. Infection due to Flu A cannot be ruled out. Flu A angiten in the sample may be below the detection limit of the test. Performed By: #### I NFLUAB #### [facility] [address] [place] [address] Dr. Rakel Fraga INFLUBNEGH SEE BELOW Normal [facility] Comment on above: Result Comment: Nega tive for Flu B protein antigen. Infection due to Flu B cannot be ruled out. Flu B antigen in the sample may be below the detection limit of the test. Performed By: #### I NFLUAB #### [facility] [address] [place] [address] Dr. Rakel Fraga INFLUENZA A AG Negative Normal NEGATIVE SEE COMMENT [facility] Comment on above: Performed By: #### I NFLUAB #### [facility] [address] [place] [address] Dr. Rakel Fraga INFLUENZA B AG Negative Normal NEGATIVE SEE COMMENT [facility] Comment on above: Performed By: #### I NFLUAB #### [facility] [address] [place] [address] Dr. Rakel Fraga SYMPTOMATIC COVID-19 ANTIGEN on 01-14-2023 EUA Statement SEE BELOW Normal [facility] Comment on above: Result Comment: [...] sooner. Performed By: #### U AMIC #### [facility] [address] [place] [address] Dr. Rakel Fraga SARS-CoV-2 (COVID-19) RNA SHADIA+probe Ql (Unsp spec) Negative Normal NEGATIVE [facility] Comment on above: Performed By: #### U AMIC #### [facility] [address] [place] [address] Dr. Rakel Fraga PANCREATIC ELASTASE FECALon 01-09-2023 Pancreatic Elastase, Fecal 90 ug Elast./g Critically low >200 [facility] Comment on above: Result Comment: Re sults verified by repeat testing Severe Pancreatic Insufficiency: <100 Moderate Pancreatic Insufficiency: 100 - 200 Normal: >200 Performed By: #### B MP #### [facility] [address] [place] [address] Dr. Rakel Fraga CBC AUTO DIFFon 01-07-2023 BASO # 0.0 103/ul Normal 0.0-0.1 [facility] Comment on above: Performed By: #### C BC #### [facility] [address] [place] [address] Dr. Rakel Fraga Basophils/100 WBC (Bld) 0.3 % Normal 0.2-2.0 [facility] Comment on above: Performed By: #### C BC #### [facility] [address] [place] [address] Dr. Rakel Fraga EO # 0.7 103/ul Normal 0.0-0.7 [facility] Comment on above: Performed By: #### C BC #### [facility] [address] [place] [address] Dr. Rakel Fraga Eosinophils/100 WBC (Bld) 11.6 % Critically high 0.9-7.0 [facility] Comment on above: Performed By: #### C BC #### [facility] [address] [place] [address] Dr. Rakel Fraga Erythrocyte distribution width (RBC) [Ratio] 13.5 % Normal 11.0-15.0 [facility] Comment on above: Performed By: #### C BC #### [facility] [address] [place] [address] Dr. Rakel Fraga Hematocrit (Bld) [Volume fraction] 44.3 % Normal 42.0-54.0 [facility] Comment on above: Performed By: #### C BC #### [facility] [address] [place] [address] Dr. Rakel Fraga Hemoglobin (Bld) [Mass/Vol] 14.4 g/dL Normal 14.0-18.0 [facility] Comment on above: Performed By: #### C BC #### [facility] [address] [place] [address] Dr. Rakel Fraga IG # 0.01 10e3/ul Normal 0.00-0.03 [facility] Comment on above: Performed By: #### C BC #### [facility] [address] [place] [address] Dr. Rakel Fraga IG % 0.2 % Normal 0.0-0.5 [facility] Comment on above: Performed By: #### C BC #### [facility] [address] [place] [address] Dr. Rakel Fraga LYMPH # 2.0 103/ul Normal 1.2-3.8 [facility] Comment on above: Performed By: #### C BC #### [facility] [address] [place] [address] Dr. Rakel Fraga Lymphocytes/100 WBC (Bld) 32.5 % Normal 20.5-60.0 [facility] Comment on above: Performed By: #### C BC #### [facility] [address] [place] [address] Dr. Rakel Fraga MANUAL DIFF REQ NO Normal [facility] Comment on above: Performed By: #### C BC #### [facility] [address] [place] [address] Dr. Rakel Fraga MCH (RBC) [Entitic mass] 29.8 pg Normal 25.9-34.0 [facility] Comment on above: Performed By: #### C BC #### [facility] [address] [address] [address] Rakel Fraga MCHC (RBC) [Mass/Vol] 32.5 g/dL Normal 29.9-35.2 [facility] Comment on above: Performed By: #### C BC #### [facility] [address] [address] [address] Rakel Fraga MCV (RBC) [Entitic vol] 91.5 fL Normal 80.0-94.0 [facility] Comment on above: Performed By: #### C BC #### [facility] [address] [address] [address] Rakel Fraga MONO # 0.4 103/ul Normal 0.3-0.8 [facility] Comment on above: Performed By: #### C BC #### [facility] [address] [place] [address] Dr. Rakel Fraga Monocytes/100 WBC (Bld) 7.1 % Normal 1.7-12.0 [facility] Comment on above: Performed By: #### C BC #### [facility] [address] [place] [address] Dr. Rakel Fraga NEUT # 2.9 103/ul Normal 1.4-6.5 [facility] Comment on above: Performed By: #### C BC #### [facility] [address] [place] [address] Dr. Rakel Fraga Neutrophils/100 WBC (Bld) 48.3 % Normal 43.0-75.[address] [facility] Comment on above: Performed By: #### C BC #### [facility] [address] [place] [address] Dr. Rakel Fraga Platelet mean volume (Bld) [Entitic vol] 9.6 fL Normal 9.5-13.[address] [facility] Comment on above: Performed By: #### C BC #### [facility] [address] [place] [address] Dr. Rakel Fraga PLT 222 103/ul Normal 150-[address] [facility] Comment on above: Performed By: #### C BC #### [facility] [address] [address] [address] Rakel Fraga RBC 4.84 106/ul Normal 4.70-6.[address] [facility] Comment on above: Performed By: #### C BC #### [facility] [address] [address] [address] Rakel Fraga WBC 6.0 103/ul Normal 4.0-11.0 [facility] Comment on above: Performed By: #### C BC #### [facility] [address] [address] [address] Rakel Fraga PROF 14(COMP METB)on 023 Albumin [Mass/Vol] 3.6 g/dL Normal 3.4-5.0 [facility] Comment on above: Performed By: #### C MP ####[facility] [address] [address]Dr. Rakel Fraga Albumin/Globulin [Mass ratio] 1.0 {ratio} Normal [facility] Comment on above: Performed By: #### C MP ####[facility] [address] [address]Dr. Rakel Fraga ALP [Catalytic activity/Vol] 140 U/L Critically high 46-116 [facility] Comment on above: Performed By: #### C MP ####[facility] [address] [address]Dr. Rakel Fraga ALT [Catalytic activity/Vol] 23 U/L Normal 16-[address] [facility] Comment on above: Performed By: #### C MP ####[facility] [address] [address]Dr. Rakel Fraga Anion gap [Moles/Vol] 12.4 mmol/L Normal [facility] Comment on above: Performed By: #### C MP ####[facility] [address] [address]Dr. Rakel Fraga AST [Catalytic activity/Vol] 19 U/L Normal 15-37 [facility] Comment on above: Performed By: #### C MP ####[facility] [address] [id number]. Rakel Fraga Bilirubin [Mass/Vol] 0.2 mg/dL Normal 0.2-1.[address] [facility] Comment on above: Performed By: #### C MP ####[facility] [address] [id number]. Rakel Fraga Calcium [Mass/Vol] 8.9 mg/dL Normal 8.5-10.1 [facility] Comment on above: Performed By: #### C MP ####[facility] [address] [id number]. Rakel Fraga Chloride [Moles/Vol] 111 mmol/L Critically high 98-[address] [facility] Comment on above: Performed By: #### C MP ####[facility] [address] [address]Dr. Rakel Fraga CO2 [Moles/Vol] 27.8 mmol/L Normal 21.0-32.0 [facility] Comment on above: Performed By: #### C MP ####[facility] [address] [place], [place] [address]Dr. Rakel Fraga Creatinine [Mass/Vol] 1.26 mg/dL Normal 0.70-1.[address] [facility] Comment on above: Performed By: #### C MP ####[facility] [address] [id number]. Rakel Fraga EGFR-AF TRISTANIAN >60 Normal >=60 [facility] Comment on above: Performed By: #### C MP ####[facility] [address] [id number]. Rakel Flakito EGFR-NON AF TRISTANIAN 60 mL/min/1.73m2 Normal >=[address] [facility] Comment on above: Performed By: #### C MP ####[facility] [address] [place], [place] [address]Dr. Rakel Fraga Globulin (S) [Mass/Vol] 3.6 g/dL Normal [facility] Comment on above: Performed By: #### C MP ####[facility] [address] [place], [place] [address]Dr. Rakel Fraga Glucose [Mass/Vol] 118 mg/dL Critically high 74-106 [facility] Comment on above: Performed By: #### C MP ####[facility] [address] [address]Dr. Rakel Fraga Potassium [Moles/Vol] 4.2 mmol/L Normal 3.5-5.1 [facility] Comment on above: Performed By: #### C MP ####[facility] [address] [address]Dr. Rakel Fraga Protein [Mass/Vol] 7.2 g/dL Normal 6.4-8.2 [facility] Comment on above: Performed By: #### C MP ####[facility] [address] [address]Dr. Rakel Fraga Sodium [Moles/Vol] 147 mmol/L Critically high 136-145 [facility] Comment on above: Performed By: #### C MP ####[facility] [address] [address]Dr. Rakel Fraga Urea nitrogen [Mass/Vol] 17.0 mg/dL Normal 7.0-18.0 [facility] Comment on above: Performed By: #### C MP ####[facility] [address] [address]Dr. Rakel Fraga Urea nitrogen/Creatinine [Mass ratio] 13.5 mg/mg Normal [facility] Comment on above: Performed By: #### C MP ####[facility] [address] [address]Dr. Rakel Fraga SED RATE WESTERGRENon 2022 SED RATE 13 mm/hr Normal <=[address] [facility] Comment on above: Performed By: #### S EDR ####[facility] [address] [place], [place] [address]Dr. Rakel Fraga STOOL CULTUREon 01-06-2023 Campylobacter Culture Final report Normal [facility] Comment on above: Performed By: #### C XSTOOL #### [facility] [address] [address] [address] Rakel Fraga E coli Shiga Toxin EIA Negative Normal Negative [facility] Comment on above: Performed By: #### C XSTOOL #### [facility] [address] [place] [address] Dr. Rakel Fraga Result [address] [facility] Comment on above: Result Comment: No S almonella or Shigella recovered. Performed By: #### C XSTOOL #### [facility] [address] [place] [address] Dr. Rakel Fraga Result Comment: No C ampylobacter species isolated. Salmonella/Shigella Screen Final report Normal [facility] Comment on above: Performed By: #### C XSTOOL #### [facility] [address] [place] [address] Dr. Rakel Fraga OVA AND PARASITE EXAMINATION on 01-04-2023 Ova + Parasite Exam Final report Normal [facility] Comment on above: Result Comment: Thes e results were obtained using wet preparation(s) and trichrome stained smear. This test does not include testing for Cryptosporidium parvum, Cyclospora, or Microsporidia. Performed By: #### B MP #### [facility] [address] [place] [address] Dr. Rakel Fraga Result [address] [facility] Comment on above: Result Comment: No o va, cysts, or parasites seen. . One negative specimen does not rule out the possibility of a parasitic infection. Performed By: #### B MP #### [facility] [address] [place] [address] Dr. Rakel Fraga C. DIFF PCRon 01-02-2023 C. DIFFICILE PCR Negative Normal NEGATIVE [facility] Comment on above: Performed By: #### U AMIC #### [facility] [address] [place] [address] Dr. Rakel Fraga OCC BLD IMMUNO SCREENon 12-13 OCCULT BLOOD Negative Normal NEGATIVE [facility] Comment on above: Performed By: #### U AMIC #### [facility] [address] [place] [address] Dr. Rakel Fraga LEVETIRACETAM, SERUM OR PLAS MAon 11-09-2022 Levetiracetam, S 20.0 ug/mL Normal 10.0-40.0 [facility] Comment on above: Performed By: #### U AMIC #### [facility] [address] [place] [address] Dr. Rakel Fraga ZONISAMIDEon 11-09-2022 Zonisamide 23.3 ug/mL Normal 10.0-40.[address] [facility] Comment on above: Result Comment: Dete ction Limit = 2.0 Performed By: #### B MP #### [facility] [address] [place] [address] Dr. Rakel Fraga CBC AUTO DIFFon 11-07-2022 BASO # 0.1 103/ul Normal 0.0-0.1 [facility] Comment on above: Performed By: #### C BC #### [facility] [address] [place] [address] Dr. Rakel Fraga Basophils/100 WBC (Bld) 0.5 % Normal 0.2-2.0 [facility] Comment on above: Performed By: #### C BC #### [facility] [address] [place] [address] Dr. Rakel Fraga EO # 1.9 103/ul Critically high 0.0-0.7 [facility] Comment on above: Performed By: #### C BC #### [facility] [address] [place] [address] Dr. Rakel Fraga Eosinophils/100 WBC (Bld) 17.1 % Critically high 0.9-7.[address] [facility] Comment on above: Performed By: #### C BC #### [facility] [address] [place] [address] Dr. Rakel Fraga Erythrocyte distribution width (RBC) [Ratio] 12.9 % Normal 11.0-15.0 [facility] Comment on above: Performed By: #### C BC #### [facility] [address] [place] [address] Dr. Rakel Fraga Hematocrit (Bld) [Volume fraction] 44.6 % Normal 42.0-54.[address] [facility] Comment on above: Performed By: #### C BC #### [facility] [address] [address] [address] Rakel Fraga Hemoglobin (Bld) [Mass/Vol] 13.8 g/dL Critically low 14.0-18.0 [facility] Comment on above: Performed By: #### C BC #### [facility] [address] [address] [address] Rakel Fraga IG # 0.03 10e3/ul Normal 0.00-0.03 [facility] Comment on above: Performed By: #### C BC #### [facility] [address] [place] [address] Dr. Rakel Fraga IG % 0.3 % Normal 0.0-0.5 [facility] Comment on above: Performed By: #### C BC #### [facility] [address] [place] [address] Dr. Rakel Fraga LYMPH # 2.1 103/ul Normal 1.2-3.8 [facility] Comment on above: Performed By: #### C BC #### [facility] [address] [place] [address] Dr. Rakel Fraga Lymphocytes/100 WBC (Bld) 18.7 % Critically low 20.5-60.0 [facility] Comment on above: Performed By: #### C BC #### [facility] [address] [place] [address] Dr. Rakel Fraga MANUAL DIFF REQ NO Normal [facility] Comment on above: Performed By: #### C BC #### [facility] [address] [place] [address] Dr. Rakel Fraga MCH (RBC) [Entitic mass] 29.3 pg Normal 25.9-34.0 [facility] Comment on above: Performed By: #### C BC #### [facility] [address] [place] [address] Dr. Rakel Fraga MCHC (RBC) [Mass/Vol] 30.9 g/dL Normal 29.9-35.2 [facility] Comment on above: Performed By: #### C BC #### [facility] [address] [address] [address] Rakel Fraga MCV (RBC) [Entitic vol] 94.7 fL Critically high 80.0-94.0 [facility] Comment on above: Performed By: #### C BC #### [facility] [address] [address] [address] Rakel Fraga MONO # 0.6 103/ul Normal 0.3-0.8 [facility] Comment on above: Performed By: #### C BC #### [facility] [address] [address] [address] Rakel Fraga Monocytes/100 WBC (Bld) 5.4 % Normal 1.7-12.0 [facility] Comment on above: Performed By: #### C BC #### [facility] [address] [place] [address] Dr. Rakel Fraga NEUT # 6.4 103/ul Normal 1.4-6.5 [facility] Comment on above: Performed By: #### C BC #### [facility] [address] [place] [address] Dr. Rakel Fraga Neutrophils/100 WBC (Bld) 58.0 % Normal 43.0-75.0 [facility] Comment on above: Performed By: #### C BC #### [facility] [address] [place] [address] Dr. Rakel Fraga Platelet mean volume (Bld) [Entitic vol] 9.2 fL Critically low 9.5-13.5 [facility] Comment on above: Performed By: #### C BC #### [facility] [address] [place] [address] Dr. Rakel Fraga PLT 261 103/ul Normal 150-[address] [facility] Comment on above: Performed By: #### C BC #### [facility] [address] [address] [address] Rakel Fraga RBC 4.71 106/ul Normal 4.70-6.[address] [facility] Comment on above: Performed By: #### C BC #### [facility] [address] [address] [address] Rakel Fraga WBC 11.0 103/ul Normal 4.0-11.0 [facility] Comment on above: Performed By: #### C BC #### [facility] [address] [place] [address] Dr. Rakel Fraga PROF 14(COMP METB)on 023 Albumin [Mass/Vol] 3.6 g/dL Normal 3.4-5.0 [facility] Comment on above: Performed By: #### U AMIC #### [facility] [address] [address] [address] Rakel Fraga Albumin/Globulin [Mass ratio] 0.9 {ratio} Normal [facility] Comment on above: Performed By: #### U AMIC #### [facility] [address] [place] [address] Dr. Rakel Fraga ALP [Catalytic activity/Vol] 159 U/L Critically high 46-116 [facility] Comment on above: Performed By: #### U AMIC #### [facility] [address] [place] [address] Dr. Rakel Fraga ALT [Catalytic activity/Vol] 20 U/L Normal 16-63 [facility] Comment on above: Performed By: #### U AMIC #### [facility] [address] [place] [address] Dr. Rakel Fraga Anion gap [Moles/Vol] 11.4 mmol/L Normal [facility] Comment on above: Performed By: #### U AMIC #### [facility] [address] [place] [place] [address] Dr. Rakel Fraga AST [Catalytic activity/Vol] 15 U/L Normal 15-37 [facility] Comment on above: Performed By: #### U AMIC #### [facility] [address] [place] [address] Dr. Rakel Fraga Bilirubin [Mass/Vol] 0.3 mg/dL Normal 0.2-1.0 [facility] Comment on above: Performed By: #### U AMIC #### [facility] [address] [address] [address] Rakel Fraga Calcium [Mass/Vol] 9.2 mg/dL Normal 8.5-10.1 [facility] Comment on above: Performed By: #### U AMIC #### [facility] [address] [address] [address] Rakel Fraga Chloride [Moles/Vol] 101 mmol/L Normal 98-107 [facility] Comment on above: Performed By: #### U AMIC #### [facility] [address] [place] [address] Dr. Rakel Fraga CO2 [Moles/Vol] 28.5 mmol/L Normal 21.0-32.0 [facility] Comment on above: Performed By: #### U AMIC #### [facility] [address] [place] [address] Dr. Rakel Fraga Creatinine [Mass/Vol] 1.07 mg/dL Normal 0.70-1.30 [facility] Comment on above: Performed By: #### U AMIC #### [facility] [address] [address] [address] Rakel Fraga EGFR-AF TRISTANIAN >60 Normal >=60 [facility] Comment on above: Performed By: #### U AMIC #### [facility] [address] [place] [address] Dr. Rakel Fraga EGFR-NON AF TRISTANIAN >60 Normal >=60 [facility] Comment on above: Performed By: #### U AMIC #### [facility] [address] [address] [address] Rakel Fraga Globulin (S) [Mass/Vol] 4.0 g/dL Normal [facility] Comment on above: Performed By: #### U AMIC #### [facility] [address] [place] [address] Dr. Rakel Fraga Glucose [Mass/Vol] 109 mg/dL Critically high 74-106 [facility] Comment on above: Performed By: #### U AMIC #### [facility] [address] [address] [address] Rakel Fraga Potassium [Moles/Vol] 3.9 mmol/L Normal 3.5-5.1 [facility] Comment on above: Performed By: #### U AMIC #### [facility] [address] [address] [address] Rakel Fraga Protein [Mass/Vol] 7.6 g/dL Normal 6.4-8.2 [facility] Comment on above: Performed By: #### U AMIC #### [facility] [address] [address] [address] Rakel Fraga Sodium [Moles/Vol] 137 mmol/L Normal 136-145 [facility] Comment on above: Performed By: #### U AMIC #### [facility] [address] [address] [address] Rakel Fraga Urea nitrogen [Mass/Vol] 11.0 mg/dL Normal 7.0-18.0 [facility] Comment on above: Performed By: #### U AMIC #### [facility] [address] [address] [address] Rakel Fraga Urea nitrogen/Creatinine [Mass ratio] 10.3 mg/mg Normal [facility] Comment on above: Performed By: #### U AMIC #### [facility] [address] [place] [address] Dr. Rakel Fraga US SINGLE QUAD RT [...] by: JARETT JARVIS Date: 2022-10-09 10:17 Normal [facility] MRI LSPINE WO CONon 09-17-20 MRI [...] by: JARETT GARCÍA Date: 2022-09-17 12:01 Normal [facility] CT ABD/PELVIS WO CONon 09-10 CT [...] DANIELLE KWONG Date: 2022-09-09 23:[address] [facility] CBC AUTO DIFFon 09-09-2022 BASO # 0.0 103/ul Normal 0.0-0.1 [facility] Comment on above: Performed By: #### U AMIC #### [facility] [address] [place] [address] Dr. Rakel Fraga Basophils/100 WBC (Bld) 0.4 % Normal 0.2-2.0 [facility] Comment on above: Performed By: #### U AMIC #### [facility] [address] [place] [address] Dr. Rakel Fraga EO # 0.3 103/ul Normal 0.0-0.7 [facility] Comment on above: Performed By: #### U AMIC #### [facility] [address] [place] [address] Dr. Rakel Fraga Eosinophils/100 WBC (Bld) 3.4 % Normal 0.9-7.0 [facility] Comment on above: Performed By: #### U AMIC #### [facility] [address] [place] [address] Dr. Rakel Fraga Erythrocyte distribution width (RBC) [Ratio] 13.0 % Normal 11.0-15.0 [facility] Comment on above: Performed By: #### U AMIC #### [facility] [address] [place] [address] Dr. Rakel Fraga Hematocrit (Bld) [Volume fraction] 43.8 % Normal 42.0-54.0 [facility] Comment on above: Performed By: #### U AMIC #### [facility] [address] [place] [address] Dr. Rakel Fraga Hemoglobin (Bld) [Mass/Vol] 14.6 g/dL Normal 14.0-18.0 [facility] Comment on above: Performed By: #### U AMIC #### [facility] [address] [place] [address] Dr. Rakel Fraga IG # 0.02 10e3/ul Normal 0.00-0.03 [facility] Comment on above: Performed By: #### U AMIC #### [facility] [address] [place] [address] Dr. Rakel Fraga IG % 0.2 % Normal 0.0-0.5 [facility] Comment on above: Performed By: #### U AMIC #### [facility] [address] [place] [address] Dr. Rakel Fraga LYMPH # 2.3 103/ul Normal 1.2-3.8 [facility] Comment on above: Performed By: #### U AMIC #### [facility] [address] [place] [address] Dr. Rakel Fraga Lymphocytes/100 WBC (Bld) 25.3 % Normal 20.5-60.0 [facility] Comment on above: Performed By: #### U AMIC #### [facility] [address] [place] [address] Dr. Rakel Fraga MANUAL DIFF REQ NO Normal [facility] Comment on above: Performed By: #### U AMIC #### [facility] [address] [place] [address] Dr. Rakel Fraga MCH (RBC) [Entitic mass] 30.3 pg Normal 25.9-34.0 [facility] Comment on above: Performed By: #### U AMIC #### [facility] [address] [place] [address] Dr. Rakel Fraga MCHC (RBC) [Mass/Vol] 33.3 g/dL Normal 29.9-35.2 [facility] Comment on above: Performed By: #### U AMIC #### [facility] [address] [address] [address] Rakel Fraga MCV (RBC) [Entitic vol] 90.9 fL Normal 80.0-94.0 [facility] Comment on above: Performed By: #### U AMIC #### [facility] [address] [address] [address] Rakel Fraga MONO # 0.8 103/ul Normal 0.3-0.8 [facility] Comment on above: Performed By: #### U AMIC #### [facility] [address] [place] [address] Dr. Rakel Fraga Monocytes/100 WBC (Bld) 8.5 % Normal 1.7-12.0 [facility] Comment on above: Performed By: #### U AMIC #### [facility] [address] [place] [address] Dr. Rakel Fraga NEUT # 5.5 103/ul Normal 1.4-6.5 [facility] Comment on above: Performed By: #### U AMIC #### [facility] [address] [place] [address] Dr. Rakel Fraga Neutrophils/100 WBC (Bld) 62.2 % Normal 43.0-75.0 [facility] Comment on above: Performed By: #### U AMIC #### [facility] [address] [place] [address] Dr. Rakel Fraga Platelet mean volume (Bld) [Entitic vol] 9.8 fL Normal 9.5-13.[address] [facility] Comment on above: Performed By: #### U AMIC #### [facility] [address] [place] [address] Dr. Rakel Fraga PLT 252 103/ul Normal 150-[address] [facility] Comment on above: Performed By: #### U AMIC #### [facility] [address] [place] [address] Dr. Rakel Fraga RBC 4.82 106/ul Normal 4.70-6.10 [facility] Comment on above: Performed By: #### U AMIC #### [facility] [address] [place] [address] Dr. Rakel Fraga WBC 8.9 103/ul Normal 4.0-11.0 [facility] Comment on above: Performed By: #### U AMIC #### [facility] [address] [place] [address] Dr. Rakel Fraga PROF CHEM 8 (BAS METB)on Anion gap [Moles/Vol] 9.4 mmol/L Normal [facility] Comment on above: Performed By: #### B MP #### [facility] [address] [place] [address] Dr. Rakel Fraga Calcium [Mass/Vol] 8.5 mg/dL Normal 8.5-10.1 [facility] Comment on above: Performed By: #### B MP #### [facility] [address] [place] [address] Dr. Rakel Fraga Chloride [Moles/Vol] 104 mmol/L Normal 98-107 [facility] Comment on above: Performed By: #### B MP #### [facility] [address] [place] [address] Dr. Rakel Fraga CO2 [Moles/Vol] 28.0 mmol/L Normal 21.0-32.0 [facility] Comment on above: Performed By: #### B MP #### [facility] [address] [place] [address] Dr. Rakel Fraga Creatinine [Mass/Vol] 1.18 mg/dL Normal 0.70-1.[address] [facility] Comment on above: Performed By: #### B MP #### [facility] [address] [place] [address] Dr. Rakel Fraga EGFR-AF TRISTANIAN >60 Normal >=60 [facility] Comment on above: Performed By: #### B MP #### [facility] [address] [place] [address] Dr. Rakel Fraga EGFR-NON AF TRISTANIAN >60 Normal >=60 [facility] Comment on above: Performed By: #### B MP #### [facility] [address] [address] [address] Rakel Fraga Glucose [Mass/Vol] 92 mg/dL Normal 74-106 [facility] Comment on above: Performed By: #### B MP #### [facility] [address] [id number] Rakel Fraga Potassium [Moles/Vol] 3.4 mmol/L Critically low 3.5-5.1 [facility] Comment on above: Performed By: #### B MP #### [facility] [address] [address] [address] Rakel Fraga Sodium [Moles/Vol] 138 mmol/L Normal 136-145 [facility] Comment on above: Performed By: #### B MP #### [facility] [address] [address] [address] Rakel Fraga Urea nitrogen [Mass/Vol] 20.0 mg/dL Critically high 7.0-18.0 [facility] Comment on above: Performed By: #### B MP #### [facility] [address] [address] [address] Rakel Fraga Urea nitrogen/Creatinine [Mass ratio] 16.9 mg/mg Normal [facility] Comment on above: Performed By: #### B MP #### [facility] [address] [address] [address] HEAD WO CONon [...] DE PAZ Date: 2022-07-28 14:[address] [facility] MRI [facility] WO CONon 07-20-20 22 MRI [facility] [...] NOEMÍ MORRISON Date: 2022-07-20 12:[address] [facility] OVA AND PARASITE EXAMINATION on 07-13-2022 Ova + Parasite Exam Final report Normal [facility] Comment on above: Result Comment: Thes e results were obtained using wet preparation(s) and trichrome stained smear. This test does not include testing for Cryptosporidium parvum, Cyclospora, or Microsporidia. Performed By: #### U AMIC #### [facility] [address] [address] [address] Rakel Fraga Result 1 Comment Normal [facility] Comment on above: Result Comment: No o va, cysts, or parasites seen. . One negative specimen does not rule out the possibility of a parasitic infection. Performed By: #### U AMIC #### [facility] [address] [address] [address] Rakel Fraga CLOSTRIDIUM DIFFICILE PCRon 07-12-2022 C difficile Toxin Gene SHADIA Negative Normal Negative [facility] Comment on above: Performed By: #### C DIFNAA #### [facility] [address] [address] [address] Rakel Fraga Physician Referralon 022 Physician Referral [id number] Normal [facility] STOOL CULTUREon 07-10-2022 Campylobacter Culture Final report Normal [facility] Comment on above: Performed By: #### C XSTOOL ####[facility] [id number] [address]Dr. Rakel Fraga E coli Shiga Toxin EIA Negative Normal Negative [facility] Comment on above: Performed By: #### C XSTOOL ####[facility] [id number] [id number] Rakel Fraga Result [address] [facility] Comment on above: Result Comment: No S almonella or Shigella recovered. Performed By: #### C XSTOOL ####[facility] [id number] [id number]. Rakel Fraga Result Comment: No C ampylobacter species isolated. Salmonella/Shigella Screen Final report Normal [facility] Comment on above: Performed By: #### C XSTOOL ####[facility] [id number] [id number]. Rakel Fraga CT ABD/PELV W CONon 07-07-20 [...] ALBERTO REDMAN Date: 2022-07-07 16:[address] [facility] AMYLASEon 07-04-2022 Amylase [Catalytic activity/Vol] 40 U/L Normal 25-[address] [facility] Comment on above: Performed By: #### L IPA, CHILANGO, CRP, CMP ####[facility] [id number] [place], [place] [address]VnKailey Rakel Fraga CBC AUTO DIFFon 07-04-2022 BASO # 0.0 103/ul Normal 0.0-0.1 [facility] Comment on above: Performed By: #### B MP #### [facility] [address] [place] [address] Dr. Rakel Fraga Basophils/100 WBC (Bld) 0.5 % Normal 0.2-2.0 [facility] Comment on above: Performed By: #### B MP #### [facility] [address] [place] [address] Dr. Rakel Fraga EO # 0.5 103/ul Normal 0.0-0.7 [facility] Comment on above: Performed By: #### B MP #### [facility] [address] [place] [address] Dr. Rakel Fraga Eosinophils/100 WBC (Bld) 6.8 % Normal 0.9-7.0 [facility] Comment on above: Performed By: #### B MP #### [facility] [address] [place] [address] Dr. Rakel Fraga Erythrocyte distribution width (RBC) [Ratio] 13.0 % Normal 11.0-15.0 [facility] Comment on above: Performed By: #### B MP #### [facility] [address] [place] [address] Dr. Rakel Fraga Hematocrit (Bld) [Volume fraction] 39.2 % Critically low 42.0-54.0 [facility] Comment on above: Performed By: #### B MP #### [facility] [address] [place] [address] Dr. Rakel Fraga Hemoglobin (Bld) [Mass/Vol] 12.7 g/dL Critically low 14.0-18.0 [facility] Comment on above: Performed By: #### B MP #### [facility] [address] [place] [address] Dr. Rakel Fraga IG # 0.02 10e3/ul Normal 0.00-0.03 [facility] Comment on above: Performed By: #### B MP #### [facility] [address] [place] [address] Dr. Rakel Fraga IG % 0.3 % Normal 0.0-0.5 [facility] Comment on above: Performed By: #### B MP #### [facility] [address] [place] [address] Dr. Rakel Fraga LYMPH # 1.5 103/ul Normal 1.2-3.8 [facility] Comment on above: Performed By: #### B MP #### [facility] [address] [place] [address] Dr. Rakel Fraga Lymphocytes/100 WBC (Bld) 22.4 % Normal 20.5-60.0 [facility] Comment on above: Performed By: #### B MP #### [facility] [address] [place] [address] Dr. Rakel Frgaa MANUAL DIFF REQ NO Normal [facility] Comment on above: Performed By: #### B MP #### [facility] [address] [place] [address] Dr. Rakel Fraga MCH (RBC) [Entitic mass] 29.8 pg Normal 25.9-34.0 [facility] Comment on above: Performed By: #### B MP #### [facility] [address] [place] [address] Dr. Rakel Fraga MCHC (RBC) [Mass/Vol] 32.4 g/dL Normal 29.9-35.2 [facility] Comment on above: Performed By: #### B MP #### [facility] [address] [place] [address] Dr. Rakel Fraga MCV (RBC) [Entitic vol] 92.0 fL Normal 80.0-94.0 [facility] Comment on above: Performed By: #### B MP #### [facility] [address] [place] [address] Dr. Rakel Fraga MONO # 0.4 103/ul Normal 0.3-0.8 [facility] Comment on above: Performed By: #### B MP #### [facility] [address] [place] [address] Dr. Rakel Fraga Monocytes/100 WBC (Bld) 6.2 % Normal 1.7-12.0 [facility] Comment on above: Performed By: #### B MP #### [facility] [address] [address] [address] Rakel Fraga NEUT # 4.2 103/ul Normal 1.4-6.[address] [facility] Comment on above: Performed By: #### B MP #### [facility] [address] [address] [address] Rakel Fraga Neutrophils/100 WBC (Bld) 63.8 % Normal 43.0-75.[address] [facility] Comment on above: Performed By: #### B MP #### [facility] [address] [address] [address] Rakel Fraga Platelet mean volume (Bld) [Entitic vol] 9.8 fL Normal 9.5-13.[address] [facility] Comment on above: Performed By: #### B MP #### [facility] [address] [address] [address] Rakel Fraga PLT 185 103/ul Normal 150-[address] [facility] Comment on above: Performed By: #### B MP #### [facility] [address] [address] [address] Rakel Fraga RBC 4.26 106/ul Critically low 4.70-6.10 [facility] Comment on above: Performed By: #### B MP #### [facility] [address] [address] [address] Rakel Fraga WBC 6.6 103/ul Normal 4.0-11.[address] [facility] Comment on above: Performed By: #### B MP #### [facility] [address] [address] [address] Rakel Fraga CRPon 07-04-2022 CRP [Mass/Vol] mg/L Normal <=1.0 [facility] Comment on above: Performed By: #### L IPA, CHILANGO, CRP, CMP ####[facility] [id number] [address]Dr. Rakel Fraga LIPASEon 07-04-2022 Lipase [Catalytic activity/Vol] 65.0 U/L Critically low 73.0-393.0 [facility] Comment on above: Performed By: #### L IPA, CHILANGO, CRP, CMP ####[facility] [id number] [address]Dr. Rakel Fraga OCC BLD IMMUNO SCREENon 06-15 OCCULT BLOOD Negative Normal NEGATIVE [facility] Comment on above: Performed By: #### U AMIC #### [facility] [address] [address] [address] Rakel Fraga PROF 14(COMP METB)on 022 Albumin [Mass/Vol] 3.7 g/dL Normal 3.4-5.0 [facility] Comment on above: Performed By: #### L IPA, CHILANGO, CRP, CMP ####[facility] [id number] [address]Dr. Rakel Fraga Albumin/Globulin [Mass ratio] 1.2 {ratio} Normal [facility] Comment on above: Performed By: #### L IPA, CHILANGO, CRP, CMP ####[facility] [id number] [address]Dr. Rakel Fraga ALP [Catalytic activity/Vol] 101 U/L Normal 46-116 [facility] Comment on above: Performed By: #### L IPA, CHILANGO, CRP, CMP ####[facility] [id number] [address]Dr. Rakel Fraga ALT [Catalytic activity/Vol] 47 U/L Normal 16-63 [facility] Comment on above: Performed By: #### L IPA, CHILANGO, CRP, CMP ####[facility] [id number] [address]Dr. Rakel Fraga Anion gap [Moles/Vol] 11.1 mmol/L Normal [facility] Comment on above: Performed By: #### L IPA, CHILANGO, CRP, CMP ####[facility] [id number] [address]Dr. Rakel Fraga AST [Catalytic activity/Vol] 28 U/L Normal 15-37 [facility] Comment on above: Performed By: #### L IPA, CHILANGO, CRP, CMP ####[facility] [id number] [address]Dr. Rakel Fraga Bilirubin [Mass/Vol] 0.5 mg/dL Normal 0.2-1.[address] [facility] Comment on above: Performed By: #### L IPA, CHILANGO, CRP, CMP ####[facility] [id number] [address]Dr. Rakel Fraga Calcium [Mass/Vol] 8.7 mg/dL Normal 8.5-10.1 [facility] Comment on above: Performed By: #### L IPA, CHILANGO, CRP, CMP ####[facility] [id number] [place], [place] [address]Dr. Rakel Fraga Chloride [Moles/Vol] 110 mmol/L Critically high 98-107 [facility] Comment on above: Performed By: #### L IPA, CHILANGO, CRP, CMP ####[facility] [address] [place], [place] [address]Dr. Rakel Fraga CO2 [Moles/Vol] 26.0 mmol/L Normal 21.0-32.0 [facility] Comment on above: Performed By: #### L IPA, CHILANGO, CRP, CMP ####[facility] [id number] [place], [place] [address]Dr. Rakel Fraga Creatinine [Mass/Vol] 1.23 mg/dL Normal 0.70-1.[address] [facility] Comment on above: Performed By: #### L IPA, CHILANGO, CRP, CMP ####[facility] [id number] [place], [place] [address]Dr. Rakel Fraga EGFR-AF TRISTANIAN >60 Normal >=60 [facility] Comment on above: Performed By: #### L IPA, CHILANGO, CRP, CMP ####[facility] [id number] [place], [place] [address]Dr. Rakel Fraga EGFR-NON AF TRISTANIAN >60 Normal >=60 [facility] Comment on above: Performed By: #### L IPA, CHILANGO, CRP, CMP ####[facility] [id number] [place], [place] [address]Dr. Rakel Fraga Globulin (S) [Mass/Vol] 3.2 g/dL Normal The [facility] Comment on above: Performed By: #### L IPA, CHILANGO, CRP, CMP ####[facility] [address] [address]Dr. Rakel Fraga Glucose [Mass/Vol] 82 mg/dL Normal 74-106 The [facility] Comment on above: Performed By: #### L IPA, CHILANGO, CRP, CMP ####[facility] [address] [address]Dr. Rakel Fraga Potassium [Moles/Vol] 4.1 mmol/L Normal 3.5-5.[address] [facility] Comment on above: Performed By: #### L IPA, CHILANGO, CRP, CMP ####[facility] [id number] [address]Dr. Rakel Fraga Protein [Mass/Vol] 6.9 g/dL Normal 6.4-8.2 The [facility] Comment on above: Performed By: #### L IPA, CHILANGO, CRP, CMP ####[facility] [address] [address]Dr. Rakel Fraga Sodium [Moles/Vol] 143 mmol/L Normal 136-145 The [facility] Comment on above: Performed By: #### L IPA, CHILANGO, CRP, CMP ####[facility] [address] [address]Dr. Rakel Fraga Urea nitrogen [Mass/Vol] 23.0 mg/dL Critically high 7.0-18.[address] [facility] Comment on above: Performed By: #### L IPA, CHILANGO, CRP, CMP ####[facility] [address] [address]Dr. Rakel Fraga Urea nitrogen/Creatinine [Mass ratio] 18.7 mg/mg Normal The [facility] Comment on above: Performed By: #### L IPA, CHILANGO, CRP, CMP ####[facility] [address] [address]Dr. Rakel Fraga SED [facility] SED RATE 7 mm/hr Normal <=[address] [facility] Comment on above: Performed By: #### S EDR ####[facility] [address] [address]Dr. Rakel Fraga UA RANDOM W/MICROSCOPICon BACTERIA NONE SEEN Normal NONE SEEN [facility] Comment on above: Performed By: #### U AMIC #### [facility] Laboratory [address] [address] [address] Rakel Fraga Bilirubin Ql (U) Negative Normal NEGATIVE The [facility] Comment on above: Performed By: #### U AMIC #### [facility] Laboratory [address] [address] [address] Rakel Fraga CAST NONE SEEN Normal NONE SEEN [facility] Comment on above: Performed By: #### U AMIC #### [facility] Laboratory [address] [address] [address] Rakel Fraga Clarity (U) CLEAR Normal CLEAR [facility] Comment on above: Performed By: #### U AMIC #### [facility] Laboratory [address] [address] [address] Rakel Fraga Color (U) YELLOW Normal YELLOW The [facility] Comment on above: Performed By: #### U AMIC #### [facility] Laboratory [address] [address] [address] Rakel Fraga Crystals LM Nom (Urine sed) NONE SEEN Normal NONE SEEN [facility] Comment on above: Performed By: #### U AMIC #### [facility] Laboratory [address] [address] [address] Rakel Fraga Epithelial cells LM Ql (Urine sed) RARE Normal NONE SEEN /RARE The [facility] Comment on above: Performed By: #### U AMIC #### [facility] Laboratory [address] [address] [address] Rakel Fraga Glucose Ql (U) Negative Normal NEGATIVE The [facility] Comment on above: Performed By: #### U AMIC #### [facility] Laboratory [address] [address] [address] Rakel Fraga Hemoglobin Ql (U) Negative Normal NEGATIVE The [facility] Comment on above: Performed By: #### U AMIC #### [facility] Laboratory [address] [address] [address] Rakel Fraga Ketones Ql (U) Negative Normal NEGATIVE The [facility] Comment on above: Performed By: #### U AMIC #### [facility] Laboratory [address] [address] [address] Rakel Fraga LEUKOCYTES Negative Normal NEGATIVE The [facility] Comment on above: Performed By: #### U AMIC #### [facility] Laboratory [address] [address] [address] Rakel Fraga MUCOUS NONE SEEN Normal NONE SEEN [facility] Comment on above: Performed By: #### U AMIC #### [facility] Laboratory [address] [address] [address] Rakel Fraga Nitrite Ql (U) Negative Normal NEGATIVE The [facility] Comment on above: Performed By: #### U AMIC #### [facility] Laboratory [address] [place] [address] Dr. Rakel Fraga pH (U) 5.5 [pH] Normal 5-[address] [facility] Comment on above: Performed By: #### U AMIC #### [facility] Laboratory [address] [place] [address] Dr. Rakel Fraga RBC NONE SEEN Abnormal 0-[address] [facility] Comment on above: Performed By: #### U AMIC #### [facility] Laboratory [address] [place] [address] Dr. Rakel Fraga SPEC GRAVITY >=1.030 Abnormal 1.005-<=1.025 The [facility] Comment on above: Performed By: #### U AMIC #### [facility] Laboratory [address] [place] [address] Dr. Rakel Fraga UA PROTEIN Negative Normal NEGATIVE/ TRACE The [facility] Comment on above: Performed By: #### U AMIC #### [facility] Laboratory [address] [place] [address] Dr. Rakel Fraga Urobilinogen Qn (U) 0.2 {Arnoldo'U}/dL Normal 0.2 - 1. 0 [facility] Comment on above: Performed By: #### U AMIC #### [facility] Laboratory [address] [place], [place] [address] Dr. Rakel Fraga WBC NONE SEEN Normal NONE SEEN [facility] Comment on above: Performed By: #### U [facility] #### [facility] Laboratory [address] [place], [place] [address] Dr. Rakel Fraga NM HEPATOBILIARY SCAN W [...] by: JARETT GARCÍA Date: 2022-06-29 16:08 Normal [facility] US SINGLE QUAD RT UPPERon US [...] by: NOEMÍ MORRISON Date: 2022-06-25 13:03 Normal [facility] Coding Summaryon 04-05-2020 Coding Summary CODING DATE: 04/05/2020 [facility] STATUS: Home PAYOR: Medicare ADMIT DX: [...] Concha Lovett Date Saved: 04/05/2020 12:34 pm [facility] Consent Formson 03-31-2020 Consent Forms [id number] [facility] Management[facility] 03-14 Medication Management [id number] [facility] Anest[facility] 03-30-2020 Anesthesia Note Patient: [...] history): All Problems Depression / SNOMED CT 871770980 / Confirmed Asthma / SNOMED CT 412224059 / Confirmed Chronic maxillary sinusitis / SNOMED CT 73422578 / Confirmed Epileptic seizures / SNOMED CT 408291617 / Confirmed Lumbago / SNOMED CT 327936157 / Confirmed Lumbar spondylosis / SNOMED CT 906746968 / Confirmed Histories Family History: No family [...] Oriented. Review / Management Laboratory Results Plan [place] [employer]#( A) physical status classification: Class II. Anesthetic Preoperative Plan Anesthesia: Monitored anesthesia care. Anesthetic plan, risks, benefits, and alternatives discussed with the patient and/or family. Patient verbalized understanding. [Electronically Signed on: 03/30/2020 09:37 EDT] Nando Saeed MD [Verified on: 03/30/2020 09:37 EDT] Nando Saeed MD [facility] Inpatient Patient Summaryon 03-30-2020 [place] [address] Patient Discharge Instructions Name: SHANEL KALANI Mario : 1970 Patient Address: [address] [place] [address] Primary Care Provider: Name: Marcia Rodriguez DO After you are discharged if you find you have any questions, please, call [phone] ext [phone] to speak to a nurse. Discharge Diagnosis: Lumbago; Lumbar spondylosis Prescription Information: If you have been given a prescription for narcotics, seek immediate medical attention if you have any difficulty breathing or any sudden status changes such as confusion and sleepiness. If you or anyone you know is experiencing suicidal thoughts, mental health, alcohol and/or drug addiction problems; contact the [facility] 06/05 Crisis Hotline -Text 4HGDL id 508977. If you received any narcotics, sedation, or [...] or sign any legal documents [facility] would like to thank you for allowing [...] for Disease Control and Prevention June 2014 [facility] MAGR Intraoperative Recordon 03-30-2020 MAGR Intraoperative Record MAGR Intra-Op Record Summary Primary Physician: Hany Galo MD Finalized Date/Time: 03/30/20 09:59:33 Pt. Name: KALANI ASENCIO /Sex: 1970 MALE Med Rec #: [id number] Physician: Hany Galo MD Financial #: [id number] Pt. Type: D Room/Bed: / Admit/Disch: 03/30/20 [...] Role Performed Surgeon - Primary Anesthesiologist of Fire Patrol Record Time In 03/30/20 09:48:00 03/30/20 09:48:00 03/30/20 09:48:00 Time Out 03/30/20 09:57:00 03/30/20 09:57:00 03/30/20 09:57:00 Procedure Medial Branch Medial Branch Medial Branch Block(Bilateral) Block(Bilateral) Block(Bilateral) Last Modified By: Mitzi Wu RN, Stephanie RN Sauer, Stephanie RN 03/30/20 09:57:46 03/30/20 09:57:46 03/30/20 09:57:46 Entry 4 Entry 5 Entry 6 Case Attendee Mitzi Wu RN, Kelly Calmes, Luke T Role Performed Fire Patrol Fire Patrol Dye Lab Technician Time In 03/30/20 09:48:00 03/30/20 09:48:00 03/30/20 09:48:00 Time Out 03/30/20 09:57:00 03/30/20 09:57:00 03/30/20 09:57:00 Procedure Medial Branch Medial Branch Medial Branch Block(Bilateral) Block(Bilateral) Block(Bilateral) Last Modified By: Mitzi Wu RN, Stephanie RN Sauer, Stephanie RN 03/30/20 09:57:46 03/30/20 09:57:46 03/30/20 09:57:46 Entry 7 Entry 8 Entry 9 Case Attendee Angeli Belcher Courtney BLOCKER POLISHING Ke Allen CST Role Performed Scrub Personnel Scrub Personnel Dye Lab Technician Time In 03/30/20 09:48:00 03/30/20 09:48:00 03/30/20 [...] Agents (Im.270) Povidone-Iodine Prep By Abida Suh BLOCKER [employer]ISHING Prep Area (Im.270) Back Skin Prep Agent [...] Signed By: Mitzi Wu RN 03/30/20 09:59 [facility] 03-30-2020 MAGR Preoperative Record MAGR Pre-Op Record Summary Primary Physician: Hany Galo MD Finalized Date/Time: 03/30/20 10:12:44 Pt. Name: KALANI ASENCIO./Sex: 1970 MALE Med Rec #: [id number] Physician: Hany Galo MD Financial #: [id number] Pt. Type: D Room/Bed: / Admit/Disch: 03/30/20 [...] Signed By: Kassie James RN 03/30/20 10:12 [facility] Operative Report - Surgeon/P hilary 03-30-2020 [...] on: 03/30/2020 09:56 EDT] Hany Galo MD [facility] Patient Handouton 03-30-2020 Patient Handout Pain [...] to your first appointment after your procedure [facility] Coding Summaryon 03-29-2020 Coding Summary CODING DATE: 03/29/2020 [facility] STATUS: Home PAYOR: Medicare ADMIT DX: [...] Mandy Tarango Date Saved: 03/29/2020 03:20 pm [facility] History and Physicalon 03-29 History and Physical [id number] The patient has been examined and the medical record reviewed. The indications for surgery and exam are unchanged. [Electronically Signed on: 03/30/2020 08:37 EDT] Hany Galo MD [Verified on: 03/30/2020 08:37 EDT] Hany Galo MD [Transcribed on: 03/29/2020 14:32 EDT] [facility] Lab - Immunology/Serology Re sultson 03-29-2020 Lab - Immunology/Serology Results [id number] .00OTGTIFF [facility] Provider Orderson 03-28-2020 Provider Orders [id number] .00OTGTIFF [facility] SARS-CoV-2 (COVID-19) PCRon 03-28-2020 COVID-19 PCR Not Detected Normal Not Detected [facility] Comment on above: Order Comment: SENT TO [facility] 03/27/2020 [place] Result Comment: Perf ormed at [facility] Department of Pathology [address] [place] [id number] Results Called To Javier Dowell RN, Fortune Teller By LR And Read Back For Confirmation On 03/28/2020 15:36:12 EDT. Performed By: #### 6 [id number] ####[facility] (DEFAULT)[address] [place] [address] Progress Note - Provideron 0 03-25-2020 Progress Note - Provider [id number] .00OTGTIFF [facility] Coding Summaryon 03-24-2020 Coding Summary CODING DATE: 03/24/2020 [facility] STATUS: Home PAYOR: Medicare ADMIT DX: [...] Madeleine Baugh Date Saved: 03/24/2020 04:50 pm [facility] Coding Summary CODING DATE: 03/24/2020 [facility] STATUS: Home PAYOR: Medicare ADMIT DX: [...] Madeleine Baugh Date Saved: 03/24/2020 01:02 pm [facility] Coding Summaryon 03-21-2020 Coding Summary CODING DATE: 03/21/2020 [facility] STATUS: Home PAYOR: Medicare ADMIT DX: [...] Concha Lovett Date Saved: 03/21/2020 07:48 am [facility] Consent Formson 03-17-2020 Consent Forms [id number] [facility] Medication Managementon Medication Management [id number] [facility] Anesthesia Noteon 03-16-2020 Anesthesia Note Patient: [...] on: 03/16/2020 10:38 EDT] Warren Quach MD [facility] Anesthesia Note Patient: KALANI ASENCIO Age: [...] history): All Problems Depression / SNOMED CT 429335646 / Confirmed Asthma / SNOMED CT 974562286 / Confirmed Chronic maxillary sinusitis / SNOMED CT 29930936 / Confirmed Epileptic seizures / SNOMED CT 643005543 / Confirmed Lumbago / SNOMED CT 378072368 / Confirmed Lumbar spondylosis / SNOMED CT 283812183 / Confirmed Histories Family History: No family [...] Oriented. Review / Management Laboratory Results Plan [place] [employer]#( A) physical status classification: Class II. Anesthetic Preoperative Plan Anesthesia: Monitored anesthesia care. Anesthetic plan, risks, benefits, and alternatives discussed with the patient and/or family. Patient verbalized understanding. Informed consent was given. Anesthetic technique: Monitored anesthesia care. [Electronically Signed on: 03/16/2020 10:32 EDT] Warren Quach MD [Verified on: 03/16/2020 10:32 EDT] Warren Quach MD [facility] Inpatient Patient Summaryon 03-16-2020 [place] [address] Patient Discharge Instructions Name: KALANI ASENCIO : 1970 Patient Address: [address] [place] [address] Primary Care Provider: Name: Marcia Rodriguez DO After you are discharged if you find you have any questions, please, call [phone] ext [phone] to speak to a nurse. Discharge Diagnosis: Lumbago; Lumbar spondylosis Prescription Information: If you have been given a prescription for narcotics, seek immediate medical attention if you have any difficulty breathing or any sudden status changes such as confusion and sleepiness. If you or anyone you know is experiencing suicidal thoughts, mental health, alcohol and/or drug addiction problems; contact the [facility] 06/05 Crisis Hotline -Text 4HQCN df 630672. If you received any narcotics, sedation, or [...] or sign any legal documents [facility] would like to thank you for allowing [...] for Disease Control and Prevention June 2014 [facility] Lab - Immunology/Serology Re sultson 03-16-2020 Lab - Immunology/Serology Results [id number] .00OTGTIFF [facility] MAGR Intraoperative Recordon 03-16-2020 MAGR Intraoperative Record MAGR Intra-Op Record Summary Primary Physician: Hany Galo MD Finalized Date/Time: 03/16/20 10:40:07 Pt. Name: KALANI ASENCIOO.B./Sex: 1970 MALE Med Rec #: [id number] Physician: Hany Galo MD Financial #: [id number] Pt. Type: D Room/Bed: / Admit/Disch: 03/16/20 [...] Role Performed Surgeon - Primary Anesthesiologist of Fire Patrol Record Time In 03/16/20 10:30:00 03/16/20 10:30:00 03/16/20 10:30:00 Time Out 03/16/20 10:36:00 03/16/20 10:36:00 03/16/20 10:36:00 Procedure Medial Branch Medial Branch Medial Branch Block(Bilateral) Block(Bilateral) Block(Bilateral) Last Modified By: Swathi Beltran RN, Barbara RN Long, Barbara RN 03/16/20 10:36:38 03/16/20 10:36:38 03/16/20 10:36:38 Entry 4 Entry 5 Entry 6 Case Attendee Jorge MORRIS, Krystle Goldman Liberty G Role Performed Fire Patrol Fire Patrol Scrub Personnel Time In 03/16/20 10:30:00 03/16/20 10:30:00 03/16/20 10:30:00 Time Out 03/16/20 10:36:00 03/16/20 10:36:00 03/16/20 10:36:00 Procedure Medial Branch Medial Branch Medial Branch Block(Bilateral) Block(Bilateral) Block(Bilateral) Last Modified By: Swathi Beltran RN, Barbara RN Long, Barbara RN 03/16/20 10:36:38 03/16/20 10:36:38 03/16/20 10:36:38 Entry 7 Case Attendee Courtney Fay Role Performed Dye Lab Technician Time In 03/16/20 10:30:00 Time Out 03/16/20 [...] equipment issues/concerns Antibiotic Last Modified By: Swathi Bletran RN 03/16/20 10:31:33 Patient Positioning MAGR Pre-Care [...] Signed By: Swathi Beltran RN 03/16/20 10:40 [facility] 03-16-2020 [facility] Preoperative Record MAGR Pre-Op Record Summary Primary Physician: Hany Galo MD Finalized Date/Time: 03/16/20 10:54:47 Pt. Name: KALANI ASENCIOO.B./Sex: 1970 MALE Med Rec #: [id number] Physician: Hany Galo MD Financial #: [id number] Pt. Type: D Room/Bed: / Admit/Disch: 03/16/20 [...] Signed By: Blanka Szymanski RN 03/16/20 10:54 [facility] Operative Report - Surgeon/P hilary 03-16-2020 [...] on: 03/16/2020 10:35 EDT] Hany Galo MD [facility] Patient Handouton 03-16-2020 Patient Handout Pain [...] to your first appointment after your procedure [facility] History and Physicalon 03-15 History and Physical [id number] .00OTGTIFF The patient has been examined and the medical record reviewed. The indications for surgery and exam are unchanged. [Electronically Signed on: 03/16/2020 10:25 EDT] Hany Galo MD [Verified on: 03/16/2020 10:25 EDT] Hany Galo MD [Transcribed on: 03/15/2020 13:40 EDT] BK Normal [facility] Lab - Reference Lab Resultso n 03-15-2020 Lab - Reference Lab Results [id number] .00OTGTIFF [facility] Progress Note - Provideron 0 03-15-2020 Progress Note - Provider [id number] .00OTGTIFF [facility] SARS-CoV-2 (COVID-19) PCRon 03-15-2020 COVID-19 PCR Not Detected Normal Not Detected [facility] Comment on above: Order Comment: Sent to [facility] 03/13/2020 11:05:18 EDT SD Performed By: #### 6 [id number] ####[facility] (DEFAULT)[address] [place] [address] Provider Orderson 03-14-2020 Provider Orders [id number] .00OTGTIFF [facility] Coding Summaryon 03-10-2020 Coding Summary CODING DATE: 03/10/2020 [facility] STATUS: Home PAYOR: Medicare ADMIT DX: [...] Madeleine Baugh Date Saved: 03/10/2020 03:34 pm [facility] Coding Summaryon 03-08-2020 Coding Summary CODING DATE: 03/08/2020 [facility] STATUS: Home PAYOR: Medicare ADMIT DX: [...] Madeleine Baugh Date Saved: 03/08/2020 09:40 am [facility] Coding Summaryon 02-29-2020 Coding Summary CODING DATE: 02/29/2020 [facility] STATUS: Home PAYOR: Medicare APC DESCRIPTION [...] Tarango Revised Date Saved: 02/24/2020 08:52 am [facility] Controlled Substances Agreem entson 02-26-2020 Controlled Substances Agreements [id number] .00OTGTIFF [facility] Progress Note - Provideron 0 02-25-2020 Progress Note - Provider [id number] .00OTGTIFF [facility] XR Spine Lumbosacral Complet e w/ [...] Davi Bassett MD 02/26/20 6:21 am Technologist: [facility] XR Spine Thoracic 3 Viewson 02-23-2020 XR [...] Davi Bassett MD 02/26/20 6:21 am Technologist: [facility] Vital Signs Date Time Vital Sign Value Performing Clinician Facility 08-29-2023 14:20-0500 Body height 187.96 cm Jemalwin Teague Other [facility] Other 08-29-2023 14:20-0500 Body mass index (BMI) [Ratio] 19.9 kg/m2 Jemal Ho Other [facility] Other 08-29-2023 14:20-0500 Body weight 70.31 kg Jemal Ho Other [facility] Other 06-11-2023 14:15-0400 Body height 187.96 cm [facility] Other [facility] Other 06-11-2023 14:15-0400 Body mass index (BMI) [Ratio] 19.9 kg/m2 Imad Asaad Other [facility] Other 06-11-2023 14:15-0400 Body weight 70.31 kg Imad Asaad Other [facility] Other 06-11-2023 14:15-0400 Diastolic blood pressure 71 mm[Hg] Imad Asaad Other [facility] Other 06-11-2023 14:15-0400 Respiratory rate 18 /min Imad Asaad Other [facility] Other 06-11-2023 14:15-0400 Systolic blood pressure 122 mm[Hg] Imad Asaad Other [facility] Other 04-18-2023 14:50-0400 Diastolic blood pressure 77 mm[Hg] [facility] 04-18-2023 14:50-0400 Heart rate 73 /min [facility] 04-18-2023 14:50-0400 Respiratory rate 16 /min [facility] 04-18-2023 14:50-0400 SaO2% (BldA) [Mass fraction] 98 % [facility] 04-18-2023 14:50-0400 Systolic blood pressure 106 mm[Hg] [facility] 04-18-2023 12:36-0400 Body height 185.42 cm [facility] 04-18-2023 12:36-0400 Body temperature 98.2 [degF] [facility] 04-18-2023 12:36-0400 Body weight 68.03 kg [facility] 03-13-2023 14:00-0400 Body height 187.96 cm Imad Asaad Other [facility] Other 03-13-2023 14:00-0400 Body mass index (BMI) [Ratio] 19.51 kg/m2 Imad Asaad Other [facility] Other 03-13-2023 14:00-0400 Body weight 68.95 kg Imad Asaad Other [facility] Other 03-13-2023 14:00-0400 Diastolic blood pressure 70 mm[Hg] Imad Asaad Other [facility] Other 03-13-2023 14:00-0400 Respiratory rate 18 /min Imad Asaad Other [facility] Other 03-13-2023 14:00-0400 Systolic blood pressure 150 mm[Hg] Imad Asaad Other [facility] Other Encounters Encounter Date Encounter Type Care Provider Facility Start: 04-06-2024 End: 04-06-2024 ambulatory CARMEN AICHHOLZ Not Available Start: 02-27-2024 End: 02-27-2024 ambulatory DAVID LOWE Not Available Start: 02-24-2024 End: 02-24-2024 ambulatory CARMEN AICHHOLZ Not Available Start: 01-13-2024 End: 01-13-2024 ambulatory CARMEN AICHHOLZ Not Available Start: 10-09-2023 End: 10-09-2023 ambulatory CARMEN AICHHOLZ Not Available Start: 08-29-2023 End: 08-29-2023 ambulatory Jemal Teague Other [facility] Other Start: 08-29-2023 Office outpatient new 30 minutes Jemal Teague [facility] Start: 08-27-2023 End: 08-27-2023 ambulatory NON STAFF Facility:[facility] Start: 08-27-2023 End: 08-27-2023 ambulatory NON STAFF [facility] Work Phone: Start: 08-27-2023 End: 08-27-2023 Patient encounter procedure [facility] [place] Work Phone: Start: 06-11-2023 End: 06-11-2023 ambulatory Imad Asaad Other [place] [facility] Other Start: 06-11-2023 Office outpatient visit 25 minutes Imad Asaad [facility] Start: 04-18-2023 End: 04-18-2023 ambulatory Imad Asaad Facility:[facility] Start: 04-18-2023 End: 04-18-2023 Admission to same day surgery center [facility] Work Phone: Start: 04-18-2023 End: 04-18-2023 ambulatory NON STAFF [facility] Work Phone: Start: 03-13-2023 End: 03-13-2023 ambulatory Imad Asaad Other [place] [employer] Other Start: 03-13-2023 Office outpatient new 45 minutes Imad Asaad [facility] Start: 03-12-2023 End: 03-13-[address] JARETT GARCÍA Facility:H1 Start: 01-31-2023 End: 02-01-2023 ambulatory NARENDRANATH LAKSHMIPATHY . Facility:H1 Start: 01-14-2023 End: 01-14-2023 ambulatory DBA DEVELOPER CARMEN FELISA Facility:H1 Start: 01-07-2023 End: 01-08-2023 ambulatory DBA DEVELOPER CARMEN AICHSTACEYZ Facility:H1 Start: 01-02-2023 End: 01-02-2023 ambulatory DBA DEVELOPER CARMEN AICKATHRYN Facility:H1 Start: 11-07-2022 End: 11-08-2022 [...] 08-14-2022 ambulatory CARMEN ALLRED Birgit PRATT Fa cility:oTo Start: 08-09-2022 End: 08-10-2022 ambulatory STACY JEFFERSON . Facility:H1 Start: 07-28-2022 End: 07-28-2022 ambulatory ELIAS COLLINS . Facility:H1 Start: 07-20-2022 End: 07-21-2022 ambulatory DAVID ANGUIANO Facility:H1 Start: 07-10-2022 End: 07-10-2022 ambulatory DBA DEVELOPER CARMEN FALLONMitehsSTACEYJoe Facility:H1 Start: 07-10-2022 ambulatory CARMEN CARMEN FELISA Faci lity:Too Start: 07-06-2022 End: 07-07-2022 ambulatory DBA DEVELOPER CARMEN FELISA Facility:H1 Start: 07-05-2022 End: 07-05-2022 ambulatory DBA DEVELOPER CARMEN KERVINCHANTELLE Facility:H1 Start: 07-04-2022 End: 07-05-2022 ambulatory DBA DEVELOPER CARMEN KERVINSTACEYZ Facility:H1 Start: 06-29-2022 End: 06-30-2022 ambulatory DBA DEVELOPER CARMEN KERVINSTACEYZ Facility:H1 Start: 06-25-2022 End: 06-26-2022 ambulatory DBA DEVELOPER CARMEN KERVINSTACEYZ Facility:H1 Start: 05-10-2022 End: 05-11-2022 ambulatory STACY JEFFERSON . Facility:H1 Procedures Date Procedure Procedure Detail Performing Clinician Start: 08-27-2023 X-ray of cervical spine Start: 04-18-2023 Colonoscopy Plan of Treatment Date Care Activity Detail Author Start: 05-02-2023 ambulatory Ambulatory Facility:H 1 Start: 04-18-2023 [facility] Patient Education Hemorrhoids (DC) [facility] Work Phone: Payers Date Payer Category Payer Self-pay [id number] 2014 Unknown [id number] 1970 Unknown [id number] 2.16.8 40.1.332016.3.579.2.727 1969 Unknown [id number] 2.16.84 0.1.596575.3.579.2.593 1969 Unknown [id number] 2.16.84 0.1.500377.3.579.2.593 1969 Unknown [id number] 2.16.84 0.1.300003.3.579.2.593 1969 Unknown [id number] 2.16.84 0.1.068428.3.579.2.593 1969 Unknown [id number] .16.84 0.1.572783.3.579.2.593 1969 Unknown [id number] .16.84 0.1.845867.3.579.2.593 1969 Unknown [id number] .16.84 0.1.323138.3.579.2.593 1969 Unknown [id number] 2.16.84 0.1.606138.3.579.2.593 1969 Unknown [id number] .16.84 0.1.146198.3.579.2.593 1969 Unknown [id number] .16.84 0.1.728263.3.579.2.593 1969 Unknown [id number] .16.84 0.1.067062.3.579.2.593 1969 Unknown [id number] .16.84 0.1.552675.3.579.2.593 1969 Unknown [id number] .16.84 0.1.379999.3.579.2.593 1969 Unknown [id number] .16.84 0.1.419232.3.579.2.593 1969 Unknown [id number] .16.84 0.1.286480.3.579.2.593 1969 Unknown [id number] 2.16.84 0.1.929781.3.579.2.593 1969 Unknown [id number] 2.16.84 0.1.931664.3.579.2.593 1969 Unknown [id number] 2.16.84 0.1.152704.3.579.2.593 1969 Unknown [id number] 2.16.84 0.1.049336.3.579.2.593 1969 Unknown [id number] 2.16.84 0.1.667494.3.579.2.593 1969 Unknown [id number] 2.16.84 0.1.969210.3.579.2.593 1969 Unknown [id number] 2.16.84 0.1.804572.3.579.2.593 1969 Unknown [id number] 2.16.84 0.1.561580.3.579.2.593 1969 Unknown [id number] 2.16.84 0.1.756261.3.579.2.593 1969 Unknown [id number] 2.16.84 0.1.369652.3.579.2.9 1969 Unknown [id number] 2.16.84 0.1.417122.3.579.2.1258 1969 Unknown [id number] 2.16.84 0.1.486051.3.579.2.1259 1969 Unknown [id number] 2.16.84 0.1.433156.3.579.2.1258 1969 Unknown [id number] .16.840 .1.131836.3.579.2.9 1960 Medicaid [id number] 1960 Medicare [id number] Medicare Medicare Outpatient [id number] 9A [id number] Unknown [id number] 2.16.8 40.1.850688.3.579.2.531 Unknown [id number] 2.16.8 40.1.053091.3.579.2.531 Social History Date Type Detail Facility Sex Assigned At [employer] [facility] [employer] Other Start: 04-18-2023 End: 04-18-2023 Tobacco smoking status NHIS Ex-smoker (finding) [facility] Start: 1970 Sex Assigned At Male F [facility] Goals Date Patient Goal Desired [...] Carpal tunnel syndrome, left (ICD-10 - G56.02) [facility] [employer] Other 08-29-2023 Evaluation note* Encounter Date Diagnosis Assessment Notes Treatment Notes Treatment Clinical Notes May, Diarrhea (ICD-10 - R19.7) May, Exocrine pancreatic insufficiency (ICD-10 - K86.81) [facility] [employer] Other 07-06-2023 [facility]* Encounter Date Diagnosis Assessment Notes Treatment Notes Treatment Clinical Notes February, Diarrhea (ICD-10 - R19.7) February, Pancreatic insufficiency (ICD-10 - K86.89) February, Weight loss (ICD-10 - R63.4) [place] [employer] Other 04-20-2023 NoteCONSULTATION CONSULTATION DATE: 01/31/2023 TO: [...] our patients to inform us about any hjfn-cyg-jifztla medications or herbal remedies/nutritional supplements/alternative remedies. 2. [...] treatment options with their primary care provider.[id number] Note CONSULTATION CONSULTATION DATE: 11/01/2022 HISTORY OF [...] otherwise indicated. Patient agrees with this plan.[facility] [id number] Note CONSULTATION CONSULTATION DATE: 09/27/2022 HISTORY OF [...] be followed up in the clinic thereafter.[facility] 09-12-2022 NoteCONSULTATION CONSULTATION DATE: 09/12/2022 HISTORY OF [...] of care and all questions were answered.[facility] [id number] NoteCONSULTATION PROCEDURE DATE: 08/09/2022 PREOPERATIVE DIAGNOSIS: Bilateral [...] in the clinic in three months' time.[facility] [id number] NoteCONSULTATION CONSULTATION DATE: 08/09/2022 HISTORY OF PRESENT [...] and patient is in agreement with this.[facility] 05-10-2022 NoteCONSULTATION CONSULTATION DATE: 05/10/2022 HISTORY OF [...] otherwise indicated. Patient agrees with the plan.[facility] Evaluation noteNo assessment information availableCity [facility] Work Phone: History and physical note Author Jhon Medina [facility] April 18, 2023 1:56pm Note Date/Time April 18, 2023 1:56p m [facility] [address] [place] [address] Gastroenterology H&P Signed Patient: Kalani Asencio MR#: [id number] : 1970 Acct:[id number] Age/Sex: 53 / M Adm Date: 3 Loc: Room: Type: [facility] Attending Dr: Jhon Medina MD Copies [...] signed by Jhon Medina MD> 04/18/23 1356 [facility] Work Phone: [facility] general Narrative - Reported* Type Description Date Medical History Asthma Medical History Depression Medical History Seasonal Allergies Medical History seizure disorder Surgical History Back surgery 2009 Surgical History bilat knee surgies 2008 [employer] Other [facility] Narrative - Reported* Type Description Date Medical History Asthma Medical History Depression Medical History Seasonal Allergies Medical History seizure disorder Medical History anxiety Surgical History Back surgery 2009 Surgical History bilat knee surgies 2008 Hospitalization History see above [facility] Other Hospital Discharge instructions Additional Instructions DISCHARGE [...] scheduled -Follow up with PCP. -Office number [phone]. [facility] Work Phone: Reason for visit NarrativePATIENT IS HERE FOR DIARRHEA AND PANCREATIC INSUFFICIENCY AT THE REQUEST OF CARMEN PRATT. RECENT TESTING IN REFERRAL [facility] [employer] Other Summary Purpose Family History No Family [...] March 05 9 8:18am Hospital Course Note [facility] SURGERY Clinical Discharge Summary PERSON INFORMATION Name KALANI ASENCIO Age 50 Years 1970 Sex MALE Language Tajik PCP Marcia Rodriguez DO Marital Status Med Service Pain Management Surgery Acct# Arrival 03/30/2020 08:43:00 Visit Reason Low back pain Acuity LOS 006 00:00 Address: [address] [place] [address] Comment: PROVIDER INFORMATION VITALS INFORMATION Vital Sign [...] history): All Problems Depression / SNOMED CT 368630002 / Confirmed Asthma / SNOMED CT 038857896 / Confirmed Chronic maxillary sinusitis / SNOMED CT 33267550 / Confirmed Epileptic seizures / SNOMED CT 910630592 / Confirmed Lumbago / SNOMED CT 226645880 / Confirmed Lumbar spondylosis / SNOMED CT 057288762 / Confirmed Physical Examination VS/Measurements Vital Signs [...] history): All Problems Depression / SNOMED CT 298051627 / Confirmed Asthma / SNOMED CT 238157962 / Confirmed Chronic maxillary sinusitis / SNOMED CT 78809796 / Confirmed Epileptic seizures / SNOMED CT 163391866 / Confirmed Lumbago / SNOMED CT 598004559 / Confirmed Lumbar spondylosis / SNOMED CT 527710159 / Confirmed Physical Examination VS/Measurements Vital Signs [...] 1 Cervical pain (neck) (M54.2) Referral Organization [facility] urosurgery Referring Provider First Name Jemal Referring Provider Last Name Ho Referring Provider Specialty Neurologica l Surgery Referred Organization [facility] Referred Provider Tori Sanchez Referred Address [address], [place],[address] Referred Provider Specialty Pain Medicin e Referral Priority Routine Additional Source Comments (unrecognized sect ion and content) No Status Records FoundNo Status Records FoundNo Status Records FoundNo Status Records FoundNo Status Records Found INFORMATION SOURCE (unrecogn ized section and content) DATE CREATED AUTHOR 04/30/2020 [facility] DATE CREATED AUTHOR AUTHOR'S ORGANIZ ATION 08/07/2022 [facility] DATE CREATED AUTHOR AUTHOR'S ORGANIZ ATION [facility] DATE CREATED AUTHOR AUTHOR'S ORGANIZ ATION 11/22/2023 [facility] DATE CREATED AUTHOR AUTHOR'S ORGANIZ ATION 04/07/2024 [facility] EPIC Care Teams (unrecognized sec [...] BE BASED ON THE PRIMARY CLINICAL RECORDS. [facility]. provides no warranty or guarantee of the accuracy or completeness of information in this document.
--- NOTE | 2024-04-29 11:31 | PM.CN ---
Consult Note: HPI Data of Consult Patient: known to practice within the last 3 years Requesting Physician: Renetta Blood NP Primary Care Provider: Carmen Pratt NP Consult Narrative Reason for consult: chronic low back pain Narrative: Nabeel Asencio a pleasant 53 year old male presents for evaluation and management of chronic low back pain. Pain today 0/10 in low back, stabbing aching tightness. Increasing to 7/10 at the worst. Pain increased with twisting, pushing, pulling, sitting too long, lifting, standing, activity. Pain improved with medications. Currently utilizing tylenol BID PRN, zonegran 100mg AM 200mg HS and sertraline 100mg AM. Previously benefitted from lower Lumbar RFAs and left LCIH RFA. Recent imaging of lumbar spine consistent with degenerative changes and lumbar spondylosis. Pt engaged in HEP greater than 6 weeks without benefit. Recently underwent bilateral L1-2 L2-3 facet medial branch block #1 and #2 with >80% improvement immediately following and hours after the procedure. cc:: CC: Renetta Blood NP Review of Systems ROS Status of ROS 10 or more systems reviewed and unremarkable except as noted in history and below Musculoskeletal Reports: back pain PFSH [facility] Medical History Seizures ?R56.9 - Unspecified convulsions (ICD-10) Sleep apnea ?G47.30 - Sleep apnea, unspecified (ICD-10) Asthma ?J45.909 - Unspecified asthma, uncomplicated (ICD-10) Social History Smoking status: Former smoker Meds Home Medications and Allergies Home Medications ?Medication ?Instructions ?Recorded ?Confirmed ?Type albuterol 90 mcg/actuation aerosol 90 mcg inhalation .q6 PRN wheezing 05/16/23 04/28/24 History inhaler levetiracetam 500 mg tablet 500 mg PO DAILY 05/16/23 04/28/24 History mirtazapine 15 mg tablet (Remeron) 15 mg PO DAILY 05/16/23 04/28/24 History primidone 50 mg tablet 50 mg PO DAILY 05/16/23 04/28/24 History zonisamide 100 mg capsule 200 mg PO BEDTIME 05/16/23 04/28/24 History albuterol sulfate 90 mcg/actuation 2 inh inhalation Q6H PRN shortness 06/13/23 04/28/24 History aerosol inhaler of breath or wheezing biotin 10,000 mcg capsule 10,000 mcg PO DAILY 06/13/23 04/28/24 History calcium carbonate 600 mg-vitamin 1 tab PO DAILY 06/13/23 04/28/24 History D3 20 mcg (800 unit) tablet hhlsvj-fdkcabub-zcnccbm 1 cap PO TID 06/13/23 04/28/24 History 24,000-76,000-120,000 unit capsule,delayed rel (Creon) melatonin 3 mg capsule 3 mg PO DAILY 06/13/23 04/28/24 History montelukast 10 mg tablet 10 mg PO DAILY 06/13/23 04/28/24 History sertraline 50 mg tablet 100 mg PO DAILY 06/13/23 04/28/24 History budesonide-formoterol HFA 160 2 inh inhalation BID 03/04/24 04/28/24 History mcg-4.5 mcg/actuation aerosol inhaler (Breyna) fexofenadine 180 mg tablet mg 03/04/24 History levetiracetam 500 mg tablet 1,000 mg PO .hs 03/04/24 04/28/24 History zonisamide 100 mg capsule 100 mg PO DAILY 03/04/24 04/28/24 History Allergies Allergy/AdvReac Type Severity Reaction Status Date / Time bee venom protein (honey bee) Allergy Mild Wheezing Verified 04/28/24 10:37 latex Allergy Blister Verified 04/28/24 10:37 Exam Constitutional Documenting provider has reviewed patient's vital signs: yes Common normals: no apparent distress, oriented x3, healthy appearing, alert and well nourished General appearance: cooperative [facility] Common normals: normocephalic, hearing grossly normal bilaterally and moist oral mucous membranes Head and scalp: normocephalic Eye Common normals: PERRL Pupil: PERRL Neck & C-Spine Common normals: full ROM General: normal visual inspection Chest Common normals: inspection of chest normal Respiratory Common normals: normal respiratory effort, no retractions and no use of accessory muscles Back & Pelvis Lumbar spine/lower back: ROM limited, pain with ROM and straight leg raise negative bilaterally Other: positive facet loading tenderness over bilateral L1-2 L2-3 facets Extremity Common normals: normal to inspection and full ROM Neuro Common normals: oriented x3, CN's II-XII intact bilaterally, moves all extremities, no focal motor deficits, no sensory deficits noted and deep tendon reflexes 2+ bilaterally Sensorium/orientation: alert Motor exam: strength 5/5 throughout and no movement abnormalities noted Psych Common normals: mental status grossly normal, thought process normal, cooperative, affect normal, speech normal and activity/motor behavior normal Speech: normal speech Thought process: normal thought process Results Additional Findings Additional findings: If on a controlled substance or opioids, I have checked an [place]AR[place] report on this patient and there are no aberrancies noted in the prescribing history.??If on a controlled substance or opioid a drug screen was completed and reviewed within the last year, and if there has not been a drug screen completed we ordered one today to monitor higher risk, state monitored pain medication use. As part of providing excellent, safe, comprehensive care, the following was completed at our patient's visit: 1. A medication reconciliation and review to ensure accurate knowledge of current/active medications, including asking our patients to inform us about any dkdn-wjy-opuqboq medications or herbal remedies/nutritional supplements/alternative remedies. 2. A review to specifically ensure our patients have had annual screening for screening for depression, screening for tobacco use, and screening for unhealthy alcohol use. For concerning screenings had a discussion with the patient, provided patient education, and recommended follow-up with primary care provider when appropriate. If patient noted with a risk of falling, they received education on strength, gait, and balance training to prevent future risk of falling. Assessment and Plan Assessment and Plan (1) Lumbar spondylosis: (2) Muscle spasm: Plan right and left L1/2 L2/3 thermal RFA under fluoroscopy, risks vs benefits reviewed. pt requesting valium to help tolerate the procedure due to anxiety, can take 10mg PO valium 30 mins prior to RFA but needs to have a xm1 tank driver continue current medications f/u 1 month after completion
== END 2024-04-29 11:07 | disposition home or self-care (01) ==
LOC: PM 11:06
PROVIDERS: PCP Nurse Practitioner; Visit Provider Nurse Practitioner
DX: M47.816 Spondylosis without myelopathy or radiculopathy, lumbar region (principal); M62.838 Other muscle spasm
CPT/HCPCS: G0463

== ENCOUNTER 2024-04-30 15:29 | Outpatient (OUT) | payer MEDICARE, MEDICAID, SELFPAY ==
[2024-04-30 16:36] LABS: Anion Gap 10.7; Calcium 8.5 mg/dL (8.5-10.1); Carbon Dioxide 27.2 mmol/L (21.0-32.0); Chloride 106 mmol/L (98-107); Estimated GFR (African America >60 (>=60); Estimated GFR (Non-African Ame >60 (>=60); Glucose 85 mg/dL (74-106); Potassium 3.9 mmol/L (3.5-5.1); Sodium 140 mmol/L (136-145)
[2024-04-30 16:41] LABS: Estimated Average Glucose 114 mg/dL; Glycohemoglobin A1C 5.6 % (4.5-6.2)
== END 2024-04-30 15:30 | disposition home or self-care (01) ==
LOC: LAB 15:31
PROVIDERS: PCP Nurse Practitioner; Visit Provider Nurse Practitioner
DX: R73.03 Prediabetes (principal)
CPT/HCPCS: 36415; 80048; 83036

== ENCOUNTER 2024-06-04 16:17 | Outpatient (OUT) | payer MEDICARE, MEDICAID, SELFPAY ==
--- NOTE | 2024-06-04 16:32 | XR_ITS ---
[address] [address] Patient Name: KALANI UGARTE MRN: [id number] date: 1970 Sex: M Assigned Patient Location: [facility] Current Patient Location: Accession/Order Number: [id number] Exam Date: 06/04/2024 16:55 Report Date: 06/05/2024 07:05 At the request of: BRIGIDA ROBERTO Procedure: XR sternum min 2V PROCEDURE: XR sternum min 2V COMPARISON: None. HISTORY: STERNUM PAIN R07.89 FINDINGS: BONES:No fracture, acute abnormality, or significant arthropathy. SOFT TISSUES:Negative. No visible soft tissue swelling. EFFUSION:None visible. OTHER: Negative. XR/XR sternum min 2V IMPRESSION: No acute radiographic abnormality Electronically authenticated by: JARETT GARCÍA Date: 06/05/2024 07:05
== END 2024-06-04 16:18 | disposition home or self-care (01) ==
PROVIDERS: PCP Nurse Practitioner; Visit Provider Nurse Practitioner
DX: R07.89 Other chest pain (principal)
CPT/HCPCS: 71120

== ENCOUNTER 2024-09-16 16:37 | Emergency (ER) | payer MEDICARE, MEDICAID, SELFPAY ==
[2024-09-16 16:48] VITALS: BP 156/109; PULSE 64; O2SAT 100; BMI 24.1
--- NOTE | 2024-09-16 17:34 | XR_ITS ---
The [address] [address] Patient Name: KALANI UGARTE MRN: [id number] date: 1970 Sex: M Assigned Patient Location: ER Current Patient Location: ED.MAIN Accession/Order Number: [id number] Exam Date: 09/16/2024 17:30 Report Date: 09/16/2024 18:17 At the request of: IGNACIO BECKER Procedure: XR hand LT min 3V Exam: Radiographs: XR hand LT min 3V Reason for exam: pain Comparison: Plain films dated 12/16/2023 XR/XR hand LT min 3V IMPRESSION: Unremarkable left hand radiographs. Electronically authenticated by: ADRIANA MURGUIA Date: 09/16/2024 18:17
--- NOTE | 2024-09-16 17:58 | ED.UPPEXIN1 ---
HPI HPI - Extremity Injury (Upper) General Chief Complaint: Extremity Injury, Upper Stated Complaint: Upper Injury Left Hand Time Seen by Provider: 09/16/24 17:55 Source: patient Mode of arrival: walk-in Limitations: no limitations History of Present Illness HPI narrative: The patient is a otherwise healthy 54-year-old male who presents to the emergency department after he had a fall on him at his storage unit. The patient is right-hand dominant. He injured his left hand. He localizes the pain to the second metacarpal. He states that flexing the fingers causes more pain. He has no problem extending them. He has no history of previous injury to this extremity. Touching makes it worse and making a fist makes it worse. Nothing makes it better. He has not taken any Tylenol or Motrin for the pain since it occurred. He stated he presented to the emergency department because he wanted to make sure it was not broke. Pain is a moderate in intensity. Related Data Home Medications ?Medication ?Instructions ?Recorded ?Confirmed albuterol 90 mcg/actuation aerosol 90 mcg inhalation .q6 PRN wheezing 05/16/23 04/28/24 inhaler levetiracetam 500 mg tablet 500 mg PO DAILY 05/16/23 04/28/24 mirtazapine 15 mg tablet (Remeron) 15 mg PO DAILY 05/16/23 04/28/24 primidone 50 mg tablet 50 mg PO DAILY 05/16/23 04/28/24 zonisamide 100 mg capsule 200 mg PO BEDTIME 05/16/23 04/28/24 albuterol sulfate 90 mcg/actuation 2 inh inhalation Q6H PRN shortness 06/13/23 04/28/24 aerosol inhaler of breath or wheezing biotin 10,000 mcg capsule 10,000 mcg PO DAILY 06/13/23 04/28/24 calcium 600 mg (as 1 tab PO DAILY 06/13/23 04/28/24 carbonate)-vitamin D3 20 mcg (800 unit) tablet zvwafa-zkwhvobj-fbzumxk 1 cap PO TID 06/13/23 04/28/24 24,000-76,000-120,000 unit capsule,delayed rel (Creon) melatonin 3 mg capsule 3 mg PO DAILY 06/13/23 04/28/24 montelukast 10 mg tablet 10 mg PO DAILY 06/13/23 04/28/24 sertraline 50 mg tablet 100 mg PO DAILY 06/13/23 04/28/24 budesonide-formoterol HFA 160 2 inh inhalation BID 03/04/24 04/28/24 mcg-4.5 mcg/actuation aerosol inhaler (Breyna) fexofenadine 180 mg tablet mg 03/04/24 levetiracetam 500 mg tablet 1,000 mg PO .hs 03/04/24 04/28/24 zonisamide 100 mg capsule 100 mg PO DAILY 03/04/24 04/28/24 Allergies Allergy/AdvReac Type Severity Reaction Status Date / Time bee venom protein (honey bee) Allergy Mild Wheezing Verified 04/28/24 10:37 latex Allergy Blister Verified 04/28/24 10:37 Opioid HPI Opioid Management Most Recent Pain and Opioid Data: Last Pain Scale 2 04/28/24 10:39 04/28/24 Review of Systems ROS Narrative 10 Systems were reviewed, and unless noted in the HPI, all other systems are reviewed, unremarkable, or noncontributory. [facility] Medical History Seizures ?R56.9 - Unspecified convulsions (ICD-10) Sleep apnea ?G47.30 - Sleep apnea, unspecified (ICD-10) Asthma ?J45.909 - Unspecified asthma, uncomplicated (ICD-10) Social History Smoking status: Former smoker Exam Narrative Exam Narrative: Prior to examining the patient, I have washed with hospital approved and provided Antiseptic [employer] and have also applied gloves.? Prior to touching the patient, I asked for consent to examine the patient.? General: Alert and oriented, well nourished, mild distress. Eye: PERRL, EOMI, normal conjunctiva. HENT: Normocephalic, normal hearing, moist oral mucosa, no scleral icterus, Musculoskeletal: Normal range of motion and strength, no swelling. There is tenderness to the left hand on the first metacarpal. Limited range of motion to making a fist due to the pain. Skin: Skin is warm, dry and pink, no rashes or lesions. Neurologic: Awake, alert, and oriented X3, CN II-XII intact. Psychiatric: Cooperative, appropriate mood and affect.? Following the conclusion of the examination, I have washed my hands thoroughly after removing examination gloves. Constitutional Vital Signs, click to edit/add: Last Vital Signs Pulse 64 09/16/24 16:48 Resp 16 09/16/24 16:48 BP 156/109 H 09/16/24 16:48 Pulse Ox 100 09/16/24 16:48 O2 Del Method Room Air 09/16/24 16:48 Course Reevaluation(s) Reevaluation #1: Introduced myself to the patient. And evaluated him. The patient appears nontoxic and in no acute distress. He was informed that his x-ray looks good and that there was no evidence of any fractures. Patient was told he can take Tylenol and ibuprofen as an outpatient. Time: 18:03 Vital Signs Vital signs: Vital Signs Pulse Rate 64 09/16/24 16:48 Respiratory Rate 16 09/16/24 16:48 Blood Pressure 156/109 H 09/16/24 16:48 Pulse Oximetry 100 09/16/24 16:48 Oxygen Delivery Method Room Air 09/16/24 16:48 Pulse Rate 64 09/16/24 16:48 Respiratory Rate 16 09/16/24 16:48 Blood Pressure 156/109 H 09/16/24 16:48 Pulse Oximetry 100 09/16/24 16:48 Oxygen Delivery Method Room Air 09/16/24 16:48 MDM - Extremity Injury (Upper) MDM Narrative Medical decision making narrative: In summary, an otherwise healthy 54-year-old male presents to the emergency department with right hand injury after a box fell on it at his storage unit. Nobody else was available to provide medical history on this patient. Differential Diagnosis Differential diagnosis: Likely sprain and strain of wrist, fracture of wrist, finger sprain, dislocation of finger, fracture of hand and other (Contusion, subluxation) Medical Records Attestation: I reviewed the patient's medical records. Medical records narrative: The patient has a history of some orthopedic injuries and sees pain management. Imaging Data Hand XRay: Attestation: I personally reviewed and interpreted this imaging study as follows: My impression: There is no evidence of fracture, dislocation, subluxation. Radiologist's impression: Pending at time of disposition Discharge Plan Discharge Chief Complaint: Extremity Injury, Upper Clinical Impression: Contusion of hand, right Patient Disposition: Home, Self-Care Time of Disposition Decision: 18:07 Condition: Good Prescriptions / Home Meds: No Action albuterol 90 mcg/actuation aerosol 90 mcg inhalation .q6 PRN (Reason: wheezing) levetiracetam 500 mg tablet 500 mg PO DAILY primidone 50 mg tablet 50 mg PO DAILY mirtazapine [Remeron] 15 mg tablet 15 mg PO DAILY zonisamide 100 mg capsule 200 mg PO BEDTIME albuterol sulfate 90 mcg/actuation HFA aerosol inhaler 2 inh inhalation Q6H PRN (Reason: shortness of breath or wheezing) sertraline 50 mg tablet 100 mg PO DAILY melatonin 3 mg capsule 3 mg PO DAILY montelukast 10 mg tablet 10 mg PO DAILY biotin 10,000 mcg capsule 10,000 mcg PO DAILY Creon 24,000-76,000 -120,000 unit capsule,delayed release(DR/EC) 1 cap PO TID Rx Instructions: administer with meals and/or snacks calcium carbonate-vitamin D3 600 mg-20 mcg (800 unit) tablet 1 tab PO DAILY zonisamide 100 mg capsule 100 mg PO DAILY Rx Instructions: in AM levetiracetam 500 mg tablet 1,000 mg PO .hs budesonide-formoterol [Breyna] 160-4.5 mcg/actuation HFA aerosol inhaler 2 inh inhalation BID fexofenadine 180 mg tablet Print Language: [place] Instructions: Contusion in Adults (ED) Referrals: Carmen Pratt DECK SUPERVISOR [Primary Care Provider] - 1 week
== END 2024-09-16 18:31 | disposition home or self-care (01) ==
PROVIDERS: Emergency Provider Emergency Medicine; PCP Nurse Practitioner
DX: S60.222A Contusion of left hand, initial encounter (principal); W19.XXXA Unspecified fall, initial encounter; Z87.891 Personal history of nicotine dependence
CPT/HCPCS: 73130; 99283

== ENCOUNTER 2024-12-30 15:13 | Outpatient (OUT) | payer MEDICARE, MEDICAID, SELFPAY ==
--- NOTE | 2024-12-30 15:21 | XR_ITS ---
The [address] [address] Patient Name: KALANI UGARTE MRN: [id number] date: 1970 Sex: M Assigned Patient Location: RAD Current Patient Location: [facility] Accession/Order Number: [id number] Exam Date: 12/30/2024 18:38 Report Date: 12/30/2024 18:40 At the request of: BRIGIDA ROBERTO NP Procedure: XR wrist RT min 3V RIGHT WRIST - 3 views CLINICAL HISTORY: Acute right wrist pain after fall 1.5 months ago. COMPARISON: None FINDINGS: No focal soft tissue abnormality. No acute bony process is seen. A triquetral fracture is noted which appears to BE remote. Joint spaces appear maintained. No bony erosions. XR/XR wrist RT min 3V IMPRESSION: A TRIQUETRAL FRACTURE IS NOTED, LIKELY REMOTE. CORRELATION WITH AREA OF PAIN IS RECOMMENDED. Impression dictated by: Andi Hill Jr., D.O.12/30/2024 6:40 PM Dictation Location: [place] [address] Electronically authenticated by: [id number] Y Date: 12/30/2024 18:40
== END 2024-12-30 15:14 | disposition home or self-care (01) ==
LOC: RAD 15:15
PROVIDERS: PCP Nurse Practitioner; Visit Provider Nurse Practitioner
DX: M25.531 Pain in right wrist (principal); S62.114A Nondisplaced fracture of triquetrum [cuneiform] bone, right wrist, initial encounter for closed fracture
CPT/HCPCS: 73110

== ENCOUNTER 2025-02-26 07:40 | Outpatient (OUT) | payer MEDICARE, MEDICAID, SELFPAY ==
[2025-02-26 07:59] LABS: Basophils Percent Auto 0.5 % (0.2-2.0); Eosinophils Absolute Auto 0.4 10^3/uL (0.0-0.7); Eosinophils Percent Auto 5.9 % (0.9-7.0); Hematocrit 44.8 % (42.0-54.0); Hemoglobin 15.2 g/dL (14.0-18.0); Immature Granulocytes Abs Auto 0.01 10^3/uL (0.00-0.03); Immature Granulocytes Pct Auto 0.2 % (0.0-0.5); Lymphocytes Absolute Auto 1.7 10^3/uL (1.2-3.8); Lymphocytes Percent Auto 28.8 % (20.5-60.0); Mean Corpuscular HGB Conc 33.9 g/dL (29.9-35.2); Mean Corpuscular Hemoglobin 30.9 pg (25.9-34.0); Mean Corpuscular Volume 91.1 fL (80.0-94.0); Mean Platelet Volume 9.4 fL (9.5-13.5); Monocytes Absolute Auto 0.5 10^3/uL (0.3-0.8); Monocytes Percent Auto 8.2 % (1.7-12.0); Neutrophils Absolute Auto 3.4 10^3/uL (1.4-6.5); Neutrophils Percent Auto 56.4 % (43.0-75.0); Platelet Count 240 10^3/uL (150-450); Red Blood Count 4.92 10^6/uL (4.70-6.10)
[2025-02-26 08:25] LABS: Estimated Average Glucose 123 mg/dL; Glycohemoglobin A1C 5.9 % (4.5-6.2)
[2025-02-26 08:44] LABS: Anion Gap 15.5; BUN Creatinine Ratio 7.9; Calcium 9.1 mg/dL (8.5-10.1); Carbon Dioxide 24.3 mmol/L (21.0-32.0); Chloride 106 mmol/L (98-107); Estimated GFR (African America >60 (>=60 mL/min/1.73m^2); Estimated GFR (Non-African Ame 59 (>=60 mL/min/1.73m^2); Glucose 105 mg/dL (74-106); Potassium 3.8 mmol/L (3.5-5.1); Sodium 142 mmol/L (136-145)
[2025-02-26 08:45] LABS: Alanine Aminotransferase 25 U/L (16-63); Albumin Level 3.8 g/dL (3.4-5.0); Alkaline Phosphatase 149 U/L (46-116); Aspartate Amino Transferase 21 U/L (15-37); Bilirubin Total 0.3 mg/dL (0.2-1.0); Chol HDL Ratio 4.2; Cholesterol 180 mg/dL (<=200); Globulin 3.9 g/dL; HDL Cholesterol 43 mg/dL (40-60); Total Protein 7.7 g/dL (6.4-8.2); Triglycerides 119 mg/dL (<=150); VLDL CHOLESTEROL 23.8 mg/dL
[2025-02-26 08:46] LABS: Thyroid Stimulating Hormone 1.334 uIU/mL (0.358-3.740)
[2025-02-26 08:57] LABS: Prostate Specific Antigen Scrn 0.77 ng/mL (<=4.00)
== END 2025-02-26 07:41 | disposition home or self-care (01) ==
LOC: LAB 07:42
PROVIDERS: PCP Nurse Practitioner; Visit Provider Nurse Practitioner
DX: R73.03 Prediabetes (principal); F41.1 Generalized anxiety disorder; Z12.5 Encounter for screening for malignant neoplasm of prostate; K21.9 Gastro-esophageal reflux disease without esophagitis; G47.33 Obstructive sleep apnea (adult) (pediatric)
CPT/HCPCS: 36415; 80053; 80061; 83036; 84443; 85025; G0103